=== PATIENT | male | born 1970 | race Caucasian/White ===

== ENCOUNTER 2023-01-23 15:21 | Outpatient (OUT) | payer OTHER, SELFPAY ==
--- NOTE | 2023-01-23 | XR_ITS ---
The [address] [address] Patient Name: JERRY RESTREPO MRN: [id number] date: 1970 Sex: M Assigned Patient Location: LAB Current Patient Location: LAB Accession/Order Number: [id number] Exam Date: 01/23/2023 15:48 Report Date: 01/23/2023 18:31 At the request of: DORON ZUÑIGA Procedure: XR abdomen 1V EXAMINATION: XR abdomen 1V HISTORY: R11.2, Nausea with vomiting; unspecified M54.9 Dorsalgia COMPARISON: No relevant comparison available. FINDINGS: KIDNEY/URETER - RIGHT: Nephrolithiasis with a 1.1 cm stone projected over the pelvis KIDNEY/URETER - LEFT: No visible renal or ureteral calcifications. PELVIS: No visible ureteral calcifications. Any visible calcifications favor phleboliths. BOWEL: No abnormal dilation or deviation. BONES: Posterior decompression and transpedicular fusion lumbosacral spine OTHER: Negative. No abnormal gaseous collections. XR/XR abdomen 1V IMPRESSION: Right-sided calcifications possibly nephrolithiasis right nephrolithiasis measuring up to 1.1 cm, ureteropelvic junction stone should be considered Electronically authenticated by: JOSE BRUCE Date: 01/23/2023 18:31
[2023-01-23 16:02] LABS: Bacteria Urine NONE SEEN #/HPF (NONE SEEN); Cast Seen? NONE SEEN #/LPF (NONE SEEN); Crystals Seen? None Seen #/HPF (None Seen); Mucus Urine NONE SEEN (NONE SEEN); Squamous Epithelial Cell Urine RARE #/LPF (NONE/RARE); Urine Culture Indicated ALREADY ORDERED; WBC Urine 0-2 #/HPF (NONE SEEN)
== END 2023-01-23 15:22 | disposition home or self-care (01) ==
PROVIDERS: PCP Family Medicine; Visit Provider Family Medicine
DX: R31.9 Hematuria, unspecified (principal); R11.2 Nausea with vomiting, unspecified; M54.9 Dorsalgia, unspecified
CPT/HCPCS: 74018; 87086

== ENCOUNTER 2023-01-27 12:23 | Outpatient (OUT) | payer OTHER, SELFPAY ==
--- NOTE | 2023-01-27 12:26 | CT_ITS ---
The [address] [address] Patient Name: JERRY RESTREPO MRN: [id number] date: 1970 Sex: M Assigned Patient Location: CT Current Patient Location: CT Accession/Order Number: [id number] Exam Date: 01/27/2023 12:32 Report Date: 01/27/2023 13:00 At the request of: DORON ZUÑIGA Procedure: CT abdomen pelvis wo con EXAM: CT scan of the abdomen and pelvis without contrast. Dose reduction technique used: Automated exposure control and/or adjustment of the mA and/or kV according to patient size and/or use of iterative reconstruction technique. REASON FOR EXAM: N20.0, R31.9, R11.2, M54.9 COMPARISON: None FINDINGS: Enlarged distal appendix measuring up to 11 mm maximal thickness, however there is no periappendiceal fat stranding. Diffuse hepatic steatosis. Hepatomegaly measuring up to 23.5 cm. Multiple right calyceal renal stones. Right renal parenchymal scarring. Mildly enlarged periesophageal posterior mediastinal lymph nodes, for example a lymph node measures 2.1 x 1.7 cm. Partially visualized right-sided paraesophageal mass, this is chronic and was present on 05/04/2020 as well as the mildly enlarged lymph nodes. Small periumbilical fat-containing hernia. L5-S1 posterior jonnie and pedicle screw fusion with laminectomy. Hardware is intact. Grade 1 anterolisthesis of L5 on S1. No ureteral or bladder calculi. No hydronephrosis. No free fluid in the abdomen or pelvis. No free intraperitoneal air. No dilated or thickened loops of small bowel or colon. Liver, pancreas, spleen, bilateral kidneys, and bilateral adrenal glands are otherwise unremarkable within the limitations of noncontrast CT. No lymphadenopathy in the abdomen or pelvis. Remainder unremarkable. CT/CT abdomen pelvis wo con IMPRESSION: 1. Enlarged appendix. No other other findings are present to suggest acute appendicitis, correlate clinically. 2. Diffuse hepatic steatosis and hepatomegaly. 3. Right nephrolithiasis with associated parenchymal scarring. 4. Lower mediastinal lymphadenopathy is chronic. Electronically authenticated by: LEANA RHODES Date: 01/27/2023 13:00
== END 2023-01-27 12:24 | disposition home or self-care (01) ==
LOC: CT 12:23
PROVIDERS: PCP Family Medicine; Visit Provider Family Medicine
DX: N20.0 Calculus of kidney (principal); R31.9 Hematuria, unspecified; R11.2 Nausea with vomiting, unspecified; M54.9 Dorsalgia, unspecified
CPT/HCPCS: 74176

== ENCOUNTER 2023-01-29 13:14 | Outpatient (OUT) | payer OTHER, SELFPAY ==
--- NOTE | 2023-01-29 13:17 | CT_ITS ---
[address] [address] Patient Name: JERRY RESTREPO MRN: [id number] date: 1970 Sex: M Assigned Patient Location: CT Current Patient Location: CT Accession/Order Number: [id number] Exam Date: 01/29/2023 14:45 Report Date: 01/29/2023 15:25 At the request of: DORON ZUÑIGA Procedure: CT abdomen pelvis w con CT ABDOMEN/PELVIS WITH IV CONTRAST. INDICATION: Nausea With Vomiting, Abnormal Finding On CT R93.5. COMPARISON: 01/27/2023 TECHNIQUE: Contiguous axial images were obtained from the lung bases to the pelvic floor following the intravenous and oral administration of contrast. Coronal and sagittal reformations are provided. Approximately ML ml Omnipaque 350 was administered intravenously. FINDINGS: LOWER LUNGS: Clear. LIVER/BILIARY TREE: No mass. No intrahepatic ductal dilatation. Hepatic steatosis. GALLBLADDER: No significant gallbladder wall thickening. No radiopaque stone. CBD: Normal CBD. SPLEEN: Normal in size. PANCREAS: No acute findings. No peripancreatic fluid or inflammation. No pancreatic duct dilatation. No discrete mass. ADRENALS: Normal. KIDNEYS: No hydronephrosis. Right nephrolithiasis. STOMACH AND BOWEL: Stomach is unremarkable. No dilated bowel loops. No bowel wall thickening. There is oral contrast in the small bowel. There is a minimal oral contrast in the right colon. APPENDIX: There is no oral contrast in the appendix. The appendix measures 9 mm. No mucosal hyperenhancement. No periappendiceal stranding or fluid. PERITONEAL CAVITY: No fluid. No fat stranding. ABDOMINAL WALL: No subcutaneous stranding. No subcutaneous fluid collection. LYMPH NODES: No mesenteric or retroperitoneal lymphadenopathy by CT criteria. ABDOMINAL AORTA: No aneurysm. PELVIS: No acute abnormality. MUSCULOSKELETAL: No acute osseous abnormality. Stable L5-S1 posterior fusion hardware. CT/CT abdomen pelvis w con IMPRESSION: Mildly thickened appendix without other secondary signs of acute appendicitis. There is only a minimal amount of oral contrast in the right colon and cecum. No oral contrast in the appendix at this time. Electronically authenticated by: JUSTEN CARSON Date: 01/29/2023 15:25
== END 2023-01-29 13:15 | disposition home or self-care (01) ==
LOC: CT 13:14
PROVIDERS: PCP Family Medicine; Visit Provider Family Medicine
DX: R31.9 Hematuria, unspecified (principal); R93.5 Abnormal findings on diagnostic imaging of other abdominal regions, including retroperitoneum; R11.2 Nausea with vomiting, unspecified
CPT/HCPCS: 74177; Q9966; Q9967

== ENCOUNTER 2023-02-12 15:23 | Outpatient (OUT) | payer OTHER, SELFPAY ==
[2023-02-12 15:32] LABS: Bilirubin Urine NEGATIVE (NEGATIVE); Blood Urine MODERATE (NEGATIVE); Clarity Urine CLEAR (CLEAR); Color Urine LT. YELLOW (YELLOW); Glucose Urine UA >=1000 mg/dL (NEGATIVE); Ketones Urine NEGATIVE (NEGATIVE); Leukocyte Esterase Urine NEGATIVE (NEGATIVE); Nitrite Urine NEGATIVE (NEGATIVE); Protein Urine TRACE mg/dL (NEG/TRACE); Specific Gravity Urine >=1.030 (1.005-1.025); Urobilinogen Urine 0.2 EU/dL (0.2-1.0)
[2023-02-12 15:54] LABS: Bacteria Urine NONE SEEN #/HPF (NONE SEEN); Cast Seen? NONE SEEN #/LPF (NONE SEEN); Crystals Seen? None Seen #/HPF (None Seen); Mucus Urine NONE SEEN (NONE SEEN); Squamous Epithelial Cell Urine NONE SEEN #/LPF (NONE/RARE); Urine Culture Indicated ALREADY ORDERED; WBC Urine 0-2 #/HPF (NONE SEEN)
== END 2023-02-12 15:24 | disposition home or self-care (01) ==
LOC: LAB 15:24
PROVIDERS: PCP Family Medicine; Visit Provider Family Medicine
DX: R31.9 Hematuria, unspecified (principal)
CPT/HCPCS: 81001; 87086

== ENCOUNTER 2023-04-01 14:32 | Outpatient (OUT) | payer OTHER, SELFPAY | END 2023-04-01 14:33 | disposition home or self-care (01) | LOC: PST 14:33 | PROVIDERS: PCP Family Medicine; Visit Provider Surgery | DX: Z01.818 Encounter for other preprocedural examination (principal); R10.9 Unspecified abdominal pain; K63.5 Polyp of colon; R93.5 Abnormal findings on diagnostic imaging of other abdominal regions, including retroperitoneum ==

== ENCOUNTER 2023-04-09 09:06 | Day surgery (SDC) | payer OTHER, SELFPAY ==
--- NOTE | 2023-04-09 | OP_ITS ---
OPERATION DATE: ??04/09/2023 PREOPERATIVE DIAGNOSIS:? Intermittent rectal bleeding, left lower quadrant pain, as well as abnormal CT scan. POSTOPERATIVE DIAGNOSIS:? Redundant colon with 3 mm rectal polyp. PROCEDURE:? Colonoscopy to cecum with cold snare polypectomy x1 for a 3 mm rectal polyp. SURGEON:? Bill Banks M.D. ANESTHESIA:? Monitored anesthesia care. ESTIMATED BLOOD LOSS:? Less than 1 mL. INDICATIONS AND CONSENT:? Patient is a 52-year-old male with history of intermittent left lower quadrant abdominal pain, as well as intermittent rectal bleeding a CT scan with mildly dilated appendix.? Indications, risks, benefits, alternatives of proceeding with colonoscopy were explained extensively to the patient, including the risks of bleeding, colon perforation or anesthetic complications.? All of his questions were answered.? Informed consent was obtained. PROCEDURE:? Patient brought to the operating room, placed in the left lateral decubitus position.? Monitored anesthesia care was provided.? Rectal exam was performed which showed no masses or blood.? The scope was inserted into the anal canal.? Under direct visualization was advanced. ?It was advanced to the cecum where cecal markings were clearly identified.? The appendiceal orifice was normal.? Upon withdrawal of the scope, mucosal surfaces were carefully examined.? There was noted to be a good prep.? No mass lesions or inflammatory changes.? There was mild sigmoid diverticulosis without inflammatory changes or scarring.? Within the rectum, there was noted to be a 3 mm sessile polyp that was removed with cold snare with good hemostasis.? The scope was retroflexed in the anal canal.? There was no significant hemorrhoidal disease.? Scope was then withdrawn. ?Patient tolerated procedure well, was sent to recovery room in good condition.f/u colonoscopy likely in 5 years CC:? Ayana Warren
[2023-04-09 09:26] VITALS: BMI 49.4
[2023-04-09] MEDS: LACTATED RINGER'S SOLUTION 1,000 ML 50 ML IV (09:36)
[2023-04-09 09:37] LABS: Glucometer 142 mg/dL (74-106)
[2023-04-09 11:02] VITALS: BP 125/67; PULSE 85; RESP 16; O2SAT 96
[2023-04-09 11:20] VITALS: BP 139/79; PULSE 83; RESP 16; O2SAT 97
== END 2023-04-09 11:33 | disposition home or self-care (01) ==
PROVIDERS: PCP Family Medicine; Visit Provider Surgery
PROC: (CPT 811; principal; 2023-04-09 10:05)
DX: R10.32 Left lower quadrant pain (principal); K62.5 Hemorrhage of anus and rectum; R93.5 Abnormal findings on diagnostic imaging of other abdominal regions, including retroperitoneum; Q43.8 Other specified congenital malformations of intestine; K57.30 Diverticulosis of large intestine without perforation or abscess without bleeding; I10 Essential (primary) hypertension; E11.9 Type 2 diabetes mellitus without complications; G47.33 Obstructive sleep apnea (adult) (pediatric); E78.00 Pure hypercholesterolemia, unspecified; E66.01 Morbid (severe) obesity due to excess calories; Z68.43 Body mass index [BMI] 50.0-59.9, adult; D86.9 Sarcoidosis, unspecified; K76.0 Fatty (change of) liver, not elsewhere classified; Z98.1 Arthrodesis status
CPT/HCPCS: 45385; 36415; 82948; 88305; J2704

== ENCOUNTER 2023-12-24 12:39 | Outpatient (OUT) | payer OTHER, SELFPAY ==
--- OUTSIDE RECORDS SUMMARY | 2023-12-24 12:48 | XMS_ITS | CCD ---
Author Organization [facility] Care Team Providers Care Marketing Planning Manager Name Role Phone SAVANAH, SANJU H. Unavailable Unavailable SAVANAH, SANJU H. Unavailable Unavailable DORON CAMACHO M Unavailable Unavailable SAVANAH, SANJU H. Unavailable Unavailable SAVANAH, SANJU H. Unavailable Unavailable DORON CAMACHO M Unavailable Unavailable SAVANAH, SANJU H. Unavailable Unavailable Unknown, Referring Provider Unavailable Unav ailable Unknown, Referring Provider Unavailable Unav ailable Unavailable Unavailable Halie Sam Unavailable ZARA Carbajal, DR SAL Primary Care Unavailable PAY ., DR GANNON Admitting Unavailable PAY ., DR GANNON Consulting Unavailable PAY ., DR GANNON Attending Unavailable YURY FERNANDEZ Consulting Unavailable HOY ., DR SAL Admitting Unavailable HOY ., DR SAL Primary Care Unavailable HOY ., DR SAL Consulting Unavailable MIGUELINAY ., DR SAL Attending Unavailable Doron Camacho Primary Care Physician Bill MONAE Attending Unavailable Bill MONAE Attending Unavailable Bill MONAE Attending Unavailable Allergies Allergy Classification Reported Allergen(s) Allergy Type Date of Onset Reaction(s) Facility (1 source) No Known Medication Allergies; Translations: [No Known Medication Allergies] Propensity to adverse reactions (disorder) [facility] Repository Medications Current Medications Medication Drug Class(es) Dates Sig (Normalized) Sig (Original) fenofibrate 160 mg oral tablet (3 sources) Peroxisome Proliferator Receptor alpha Agonist Start: 02-05-2023 take 1 tablet by mouth once daily fenofibrate 160 mg oral tablet 160 mg = 1 tab(s), Oral, Daily, Refills(s) 0 Start Date: 02/05/23 Status: Ordered Fenofibrate Acti ve Gentamicin Sulfate (HALF-WAY) (1 source) Start: 10-11-2018 take 2 drop(s) into the eye(s) every four hours Garamycin 0.3 % 2 drops in affected eye Ophthalmic q 4 hours while awake for 5 days Oct, Active metoprolol tartrate 100 mg oral tablet (7 sources) beta-Adrenergic Ellis Start: 02-05-2023 take 1 tablet by mouth twice daily metoprolol tartrate 100 mg Tab 100 mg = 1 tab(s), Oral, BID, Refills(s) 0 Start Date: 02/05/23 Status: Ordered Metoprolol Tartr ate Active Metoprolol Tartr ate TABS Quantity: 0 Refills: 0 Ordered: 22-Nov-2020 DO Active oxaprozin 600 mg oral tablet (7 sources) Nonsteroidal Anti-inflammatory Drug Start: 02-05-2023 take 2 tablets by mouth once daily oxaprozin 600 mg Tab 1,200 mg = 2 tab(s), Oral, Daily, Refills(s) 0 Start Date: 02/05/23 Status: Ordered Oxaprozin Active Oxaprozin TABS Q uantity: 0 Refills: 0 Ordered: 22-Nov-2020 DO Active PARoxetine hydrochloride 40 mg oral tablet (3 sources) Serotonin Reuptake Inhibitor Start: 02-05-2023 take 1 tablet by mouth once daily paroxetine 40 mg Tab 40 mg = 1 tab(s), Oral, Daily, Refills(s) 0 Start Date: 02/05/23 Status: Ordered PARoxetine HCl A ctive Simvastatin (3 sources) HMG-CoA Reductase Inhibitor Start: 02-05-2023 simvastatin 0 Refill (s), Refills(s) 0 Start Date: 02/05/23 Status: Ordered Simvastatin Acti ve Completed/Discontinued Medications Medication Drug Class(es) Dates Sig (Normalized) Sig (Original) Ketorolac (1 source) Nonsteroidal Anti-inflammatory Drug, Cyclooxygenase Inhibitor Start: 12-17-2014 Toradol per 15 mg Dec, 60 mg predniSONE 10 mg oral tablet (6 sources) Start: 11-28-2020 End: 01-12-2021 predniSONE 10 MG Oral Tablet 40 mg for 2 days, 30 mg for 2 days, 20 mg for 2 days, 10 mg for 2 days. Quantity: 20 Refills: 3 Ordered: 28-Nov-2020 Carter Kruse MD Start : 28-Nov-2020 End : 12-Jan-2021 Complete End: 01-12-2021 take 3 tablets by mouth once daily predniSONE 20 MG Oral Tablet TAKE 3 TABLET Daily Quantity: 0 Refills: 0 Ordered: 12-Jan-2021 DO End : 12-Jan-2021 Complete Problems Active Problems Problem Classification Problem Date Documented Date Episodic/Chronic Abdominal pain (3 sources) Left lower quadrant pain; Translations: [Left lower quadrant pain] Onset: 02-12-20 Episodic Anal and rectal conditions (1 source) Rectal polyp; Translations: [Rectal polyp] Onset: 04-22-20 Episodic Calculus of urinary tract (2 sources) History of calculus of kidney 02-05-2023 Episodic Diabetes mellitus without complication (3 sources) Type 2 diabetes mellitus without complications; Translations: [Diabetes mellitus] Onset: 09-18-1902-05-2023 Chronic Disorders of lipid metabolism (2 sources) Hypercholesterolemia 02-05-2023 Chronic Diverticulosis and diverticulitis (2 sources) Diverticula of intestine; Translations: [Diverticulosis of large intestine without perforation or abscess without bleeding] Onset: 04-22-20 Chronic Essential hypertension (2 sources) Hypertensive disorder 02-05-2023 Chronic Fluid and electrolyte disorders (1 source) Dehydration; Translations: [DEHYDRATION] Onset: 09-18-19 Episodic Gastrointestinal hemorrhage (3 sources) Hemorrhage of rectum and anus; Translations: [Hemorrhage of anus and rectum] Onset: 02-12-20 Episodic Headache; including migraine (1 source) Headache; including migraine; Translations: [HEADACHE UNSPECIFIED] Onset: 09-18-19 Immunity disorders (6 sources) Sarcoidosis; Translations: [Sarcoidosis] 02-05-2023 Chronic Lymphadenitis (14 sources) Mediastinal lymphadenopathy; Translations: [Hilar lymphadenopathy ] 02-05-2023 Episodic Nausea and vomiting (4 sources) Nausea; Translations: [NAUSEA] Onset: 09-14-19 Episodic Nutritional deficiencies (2 sources) Vitamin D deficiency 02-05-2023 Chronic Other aftercare (1 source) 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; Translations: [OTH ONLINE MERCHANDISER CURRENT DRUG THERAPY] Onset: 09-18-19 Episodic Other and unspecified benign neoplasm (1 source) Hyperplastic polyp of large intestine 04-22-2023 Episodic Other circulatory disease (4 sources) H/O: hypertension; Translations: [Personal history of other diseases of circulatory system] Episodic Other connective tissue disease (2 sources) Arthrodesis status; Translations: [Arthrodesis status] Onset: 04-30-20 Episodic Other connective tissue disease (1 source) Myalgia, unspecified site; Translations: [MYALGIA UNSPECIFIED SITE] Onset: 09-18-19 Episodic Other liver diseases (2 sources) Steatosis of liver 02-05-2023 Chronic Other liver diseases (2 sources) Large liver 02-05-2023 Episodic Other lower respiratory disease (6 sources) Interstitial lung disease; Translations: [Postinflammatory pulmonary fibrosis] 02-05-2023 Chronic Other lower respiratory disease (5 sources) Dyspnea on exertion; Translations: [Other respiratory abnormalities] Episodic Other lower respiratory disease (1 source) Shortness of breath; Translations: [SHORTNESS OF BREATH] Onset: 09-18-19 Episodic Other nutritional; endocrine; and metabolic disorders (3 sources) Body mass index 40+ - severely obese; Translations: [Body mass index (BMI) 50.0-59.9, adult] Onset: 02-12-20 Chronic Other nutritional; endocrine; and metabolic disorders (2 sources) Morbid obesity 02-11-2023 Chronic Other screening for suspected conditions (not mental disorders or infectious disease) (4 sources) Encounter for screening for malignant neoplasm of prostate; Translations: [Imaging of abdomen abnormal] Onset: 08-17-19 Episodic Residual codes; unclassified (6 sources) Obstructive sleep apnea syndrome; Translations: [Obstructive sleep apnea (adult)(pediatric)] 02-05-2023 Chronic Residual codes; unclassified (1 source) Pain, unspecified; Translations: [Pain, unspecified] Onset: 04-30-20 Unclassified (1 source) CONTACT W/AND (SUSP) EXPOS COVID-19; Translations: [CONTACT W/AND (SUSP) EXPOS COVID-19] Onset: 09-18-19 Urinary tract infections (1 source) Urinary tract infection, site not specified; Translations: [UTI SITE NOT SPECIFIED] Onset: 09-18-19 Episodic Past or Other Problems Problem Classification Problem Date Documented Da te Episodic/Chronic Unclassified (2 sources) Patient encounter status; Translations: [Preop testing] Results Test Name Value Interpretation Reference Range Facility Ambulatory Visit Summaryon 1 06-23-2022 Ambulatory Visit Summary JERRY WILSON DOB:1970 Visit Date:04/22/2023 Ambulatory Visit Instructions Your Care Team Attending Physician - LETHA ISIDRO, Bill Cancino Primary Care Physician - Doron Camacho MD This Is Your Medications List fenofibrate (fenofibrate 160 mg oral tablet) metoprolol (metoprolol tartrate 100 mg Tab) oxaprozin (oxaprozin 600 mg Tab) paroxetine (paroxetine 40 mg Tab) simvastatin Procedures Performed Colonoscopy (04/09/2023), Arthroscopy of shoulder, Fusion of lumbar spine, Fusion of lumbar spine, Repair of left inguinal hernia, Repair of meniscus, Repair of right inguinal hernia. Medications What How Much When Instructions Unchanged fenofibrate (fenofibrate 160 mg oral tablet) 1 Tablets By Mouth Every day Unchanged metoprolol (metoprolol tartrate 100 mg Tab) 1 Tablets By Mouth 2 times a day Unchanged oxaprozin (oxaprozin 600 mg Tab) 2 Tablets By Mouth Every day Unchanged paroxetine (paroxetine 40 mg Tab) 1 Tablets By Mouth Every day Unchanged simvastatin 0 Refill(s) Allergies No Known Allergies No Known Medication Allergies Problems Ongoing - Any problem that you are currently receiving treatment for. Abnormal abdominal CT scan BMI 50.0-59.9, adult Diabetes Hepatic steatosis Hepatomegaly History of nephrolithiasis HTN (hypertension) Hypercholesteremia Interstitial lung disease LLQ abdominal pain Mediastinal lymphadenopathy Mediastinal lymphadenopathy Morbid obesity Obstructive sleep apnea syndrome Rectal bleeding Sarcoidosis Vitamin D deficiency Patient Survey You may receive a survey via text or e-mail asking about your office visit. Please share your experience with us by completing your survey. We appreciate your feedback and thank you for choosing us for your care. Normal [facility] General Surgery Office/Clini c Noteon 04-22-2023 General Surgery Office/Clinic Note Chief Complaint post operative follow up HPI Staff 13 day post operative follow up post colonoscopy with rectal polypectomy. History of Present Illness patient s/p colonoscopy due to LLQ pain, intermittent bleeding and abnormal abd ct scan; colonoscopy with normal appendiceal orifice; mild sigmoid diverticulosis and small hyperplastic rectal polyp; patient doing well, denies abd pain or blood in stools. Review of Systems ROS - Provider Constitutional: no fever, no sweats, no weight loss. Eyes: no glasses, no blurred vision, no visual loss. ENMT: no dentures, no hoarseness, no swallowing difficulties, no hearing loss, no ear infection(s), no nose bleeds. Cardiovascular: normal blood pressure, no chest pain, regular heartbeat, no heart murmur. Respiratory: no shortness of breath, no cough, no asthma, no wheezing. Gastrointestinal: no nausea, no vomiting, no diarrhea, no constipation, no blood in stool, no change in bowel habits, no abdominal pain, no hepatitis. Genitourinary: no kidney stones, no urine infection, no dysuria. Musculoskeletal: no pain, no weakness. Skin: no changing moles, no rash, no skin lumps. Neurologic: no seizures, no epilepsy, no headache. Psychiatric: no emotional or psychiatric problem. Heme/Lymph: no bleeding problems, no anemia, no blood clots, no transfusions. Allergy/Immunologic: no swollen lymph nodes/glands, no IV drug abuse. Other: Additional ROS info: Except as noted in the above Review of Systems and in the History of Present Illness, all other systems have been reviewed and are negative or noncontributory. Assessment/Plan 1. Hyperplastic rectal polyp (K62.1: Rectal polyp) recommend screening colonoscopy in 10 years, call sooner if problems/questions. 2. Sigmoid diverticulosis (K57.30: Diverticulosis of large intestine without perforation or abscess without bleeding) high fiber diet and daily fiber supplement. Follow-up No qualifying data available Problem List/Past Medical History Ongoing Abnormal abdominal CT scan BMI 50.0-59.9, adult Diabetes Hepatic steatosis Hepatomegaly History of nephrolithiasis HTN (hypertension) Hypercholesteremia Hyperplastic rectal polyp Interstitial lung disease LLQ abdominal pain Mediastinal lymphadenopathy Mediastinal lymphadenopathy Morbid obesity Obstructive sleep apnea syndrome Rectal bleeding Sarcoidosis Sigmoid diverticulosis Vitamin D deficiency Historical No qualifying data Procedure/Surgical History Colonoscopy (04/09/2023), Arthroscopy of shoulder, Fusion of lumbar spine, Fusion of lumbar spine, Repair of left inguinal hernia, Repair of meniscus, Repair of right inguinal hernia. Medications fenofibrate 160 mg oral tablet, 160 mg= 1 tab(s), Oral, Daily metoprolol tartrate 100 mg Tab, 100 mg= 1 tab(s), Oral, BID oxaprozin 600 mg Tab, 1200 mg= 2 tab(s), Oral, Daily paroxetine 40 mg Tab, 40 mg= 1 tab(s), Oral, Daily simvastatin Allergies No Known Allergies No Known Medication Allergies Social History Alcohol - Denies Alcohol Use, 02/11/2023 Substance Abuse - Denies Substance Abuse, 02/11/2023 Tobacco Never (less than 100 in lifetime) Tobacco Use:. Never Smokeless Tobacco Use:., 02/11/2023 Family History Family history is negative Immunizations Vaccine Date Status SARS-CoV-2 (COVID-19) mRNA BNT-162b2 vax 09/18/2020 Recorded SARS-CoV-2 (COVID-19) mRNA BNT-162b2 vax 08/28/2020 Recorded Normal [facility] Comment on above: Result Comment: Elec tronically Signed By: LETHA ISIDRO, Bill Wilcox\Date and Time Signed: 04/22/23 15:40 EST Reminderson 04-22-2023 Reminders - From: Silvia Jensen LPN To: N - Clinical; Sent: 04/22/2023 15:39:09 EST Show up: 03/09/2033 07:00:00 EDT Subject: colonoscopy recall Due Date/Time: 04/09/2033 07:00:00 EST Reminder/Recall Patient due for screening colonoscopy 04/09/2033. Normal [facility] Pathology Noteon 04-17-2023 Pathology Note [id number] #1.00TIFF [facility] Outside Colonoscopyon 2022 Outside Colonoscopy [id number] #1.00TIFF [facility] Lab Reportson 04-09-2023 Lab Reports [id number] #1.00TIFF [facility] Insurance Correspondenceon 1 05-24-2022 Insurance Correspondence [id number] 1#1.00TIFF [facility] Consent for Procedure/Surger yon 03-21-2023 Consent for Procedure/Surgery [id number]# 1.00TIFF [facility] Insurance Correspondenceon Insurance Correspondence [id number] 5#1.00CD:127 [facility] Formson 02-12-2023 Forms [id number] 0#1.00CD:127 [facility] Ambulatory Visit Summaryon Ambulatory Visit Summary JERRY WILSON :1970 Visit Date:02/11/2023 Ambulatory Visit Instructions Your Care Team Attending Physician - LETHA ISIDRO, Bill Cancino Primary Care Physician - Doron Camacho MD This Is Your Medications List Contact prescribing physician if questions or concerns fenofibrate (fenofibrate 160 mg oral tablet) metoprolol (metoprolol tartrate 100 mg Tab) oxaprozin (oxaprozin 600 mg Tab) paroxetine (paroxetine 40 mg Tab) simvastatin Procedures Performed Arthroscopy of shoulder, Fusion of lumbar spine, Fusion of lumbar spine, Repair of meniscus. Discharge Vitals Heart Rate (Peripheral) 80 Respiratory Rate 16 Blood Pressure 140/104 Height 180 cm Height 71 in Weight 166 kg Weight 365.2 lb BMI 51.23 Medications What How Much When Instructions Unchanged fenofibrate (fenofibrate 160 mg oral tablet) 1 Tablets By Mouth Every day Contact prescribing physician if questions or concerns Unchanged metoprolol (metoprolol tartrate 100 mg Tab) 1 Tablets By Mouth 2 times a day Contact prescribing physician if questions or concerns Unchanged oxaprozin (oxaprozin 600 mg Tab) 2 Tablets By Mouth Every day Contact prescribing physician if questions or concerns Unchanged paroxetine (paroxetine 40 mg Tab) 1 Tablets By Mouth Every day Contact prescribing physician if questions or concerns Unchanged simvastatin 0 Refill(s) Contact prescribing physician if questions or concerns Allergies No Known Allergies No Known Medication Allergies Problems Ongoing - Any problem that you are currently receiving treatment for. BMI 50.0-59.9, adult Diabetes Hepatic steatosis Hepatomegaly History of nephrolithiasis HTN (hypertension) Hypercholesteremia Interstitial lung disease Mediastinal lymphadenopathy Mediastinal lymphadenopathy Morbid obesity Obstructive sleep apnea syndrome Sarcoidosis Vitamin D deficiency [facility] RAD - CT Reporton 02-11-2023 RAD - CT Report [id number] #1.00CD:127 Normal [facility] RAD - CT Reporton 02-05-2023 RAD - CT Report [id number]# 1.00CD:127 Normal [facility] RAD - MISCon 02-05-2023 RAD - MISC [id number] #1.00CD:127 Normal [facility] Physician Referralon 023 Physician Referral [id number]# 1.00CD:127 Normal [facility] CULTURE URINEon 09-15-2022 CULTURE URINE Isolate 1 Morganella morganii 100,000 cfu/mL of ORGANISM 1 Morganella morganii ANTIBIOTIC M.I.C RX STATUS Ampicillin >=32 R F Ampicillin/Sulbactam 8 S F Piperacillin/Tazobac greenberg <=4 S F Cefazolin >=64 R F Ceftazidime <=1 S F Ceftriaxone <=1 S F Ertapenem <=0.5 S F Imipenem 1 S F Amikacin <=2 S F Gentamicin <=1 S F Tobramycin <=1 S F Ciprofloxacin <=0.25 S F Levofloxacin <=0.12 S F Nitrofurantoin 64 R F Trimethoprim/Sulfame thoxazole <=20 S F Normal [facility] Comment on above: Performed By: #### L IPA, CMP, CK, HSTROPN #### [facility] [address] [place] [address] Dr. Frank Nugent CBC AUTO DIFFon 09-13-2022 BASO # 0.0 103/ul Normal 0.0-0.1 [facility] Comment on above: Performed By: #### C BC #### [facility] [address] [address] [address] Frank Nugent Basophils/100 WBC (Bld) 0.2 % Normal 0.2-2.0 [facility] Comment on above: Performed By: #### C BC #### [facility] [address] [place] [address] Dr. Frank Nugent EO # 0.0 103/ul Normal 0.0-0.7 [facility] Comment on above: Performed By: #### C BC #### [facility] [address] [place] [address] Dr. Frank Nugent Eosinophils/100 WBC (Bld) 0.1 % Critically low 0.9-7.0 [facility] Comment on above: Performed By: #### C BC #### [facility] [address] [place] [address] Dr. Frank Nugent Erythrocyte distribution width (RBC) [Ratio] 12.7 % Normal 11.0-15.0 [facility] Comment on above: Performed By: #### C BC #### [facility] [address] [place] [address] Dr. Frank Nugent Hematocrit (Bld) [Volume fraction] 41.3 % Critically low 42.0-54.0 [facility] Comment on above: Performed By: #### C BC #### [facility] [address] [place] [address] Dr. Frank Nugent Hemoglobin (Bld) [Mass/Vol] 14.0 g/dL Normal 14.0-18.0 [facility] Comment on above: Performed By: #### C BC #### [facility] [address] [place] [address] Dr. Frank Nugent IG # 0.04 10e3/ul Critically high 0.00-0.03 [facility] Comment on above: Performed By: #### C BC #### [facility] [address] [place] [address] Dr. Frank Nugent IG % 0.3 % Normal 0.0-0.5 [facility] Comment on above: Performed By: #### C BC #### [facility] [address] [place] [address] Dr. Frank Nugent LYMPH # 1.0 103/ul Critically low 1.2-3.8 [facility] Comment on above: Performed By: #### C BC #### [facility] [address] [address] [address] Frank Nugent Lymphocytes/100 WBC (Bld) 6.9 % Critically low 20.5-60.0 [facility] Comment on above: Performed By: #### C BC #### [facility] [address] [address] [address] Frank Nugent MANUAL DIFF REQ NO Normal [facility] Comment on above: Performed By: #### C BC #### [facility] [address] [place] [address] Dr. Frank Nugent MCH (RBC) [Entitic mass] 29.5 pg Normal 25.9-34.0 [facility] Comment on above: Performed By: #### C BC #### [facility] [address] [place] [address] Dr. Frank Nugent MCHC (RBC) [Mass/Vol] 33.9 g/dL Normal 29.9-35.2 [facility] Comment on above: Performed By: #### C BC #### [facility] [address] [place] [address] Dr. Frank Nugent MCV (RBC) [Entitic vol] 87.1 fL Normal 80.0-94.0 [facility] Comment on above: Performed By: #### C BC #### [facility] [address] [place] [address] Dr. Frank Nugent MONO # 1.3 103/ul Critically high 0.3-0.8 [facility] Comment on above: Performed By: #### C BC #### [facility] [address] [place] [address] Dr. Frank Nugent Monocytes/100 WBC (Bld) 9.0 % Normal 1.7-12.0 [facility] Comment on above: Performed By: #### C BC #### [facility] [address] [place] [address] Dr. Frank Nugent NEUT # 12.2 103/ul Critically high 1.4-6.5 [facility] Comment on above: Performed By: #### C BC #### [facility] [address] [place] [address] Dr. Frank Nugent Neutrophils/100 WBC (Bld) 83.5 % Critically high 43.0-75.0 [facility] Comment on above: Performed By: #### C BC #### [facility] [address] [place] [address] Dr. Frank Nugent Platelet mean volume (Bld) [Entitic vol] 11.5 fL Normal 9.5-13.5 [facility] Comment on above: Performed By: #### C BC #### [facility] [address] [place] [address] Dr. Frank Nugent PLT 216 103/ul Normal 150-450 [facility] Comment on above: Performed By: #### C BC #### [facility] [address] [place] [address] Dr. Frank Nugent RBC 4.74 106/ul Normal 4.70-6.10 [facility] Comment on above: Performed By: #### C BC #### [facility] [address] [place] [address] Dr. Frank Nugent WBC 14.6 103/ul Critically high 4.0-11.0 [facility] Comment on above: Performed By: #### C BC #### [facility] [address] [place] [address] Dr. Frank Nugent CPKon 09-13-2022 CK [Catalytic activity/Vol] 260 U/L Normal 39-308 [facility] Comment on above: Performed By: #### L IPA, CMP, CK, HSTROPN #### [facility] [address] [place] [address] Dr. Frank Nugent CULTURE BLOODon 09-13-2022 Microscopic examination of blood, culture Culture Observations: NO GROWTH AT 5 DAYS. Normal [facility] Comment on above: Performed By: #### L IPA, CMP, CK, HSTROPN #### [facility] [address] [place] [address] Dr. Frank Nugent Microscopic examination of blood, culture Culture Observations: NO GROWTH AT 5 DAYS. Normal [facility] Comment on above: Performed By: #### L IPA, CMP, CK, HSTROPN #### [facility] [address] [place] [address] Dr. Frank Nugent Covid-19 PCR ([facility])on SARS-CoV-2 (COVID-19) RNA JABIER+probe Ql (Unsp spec) Not detected Normal NOT DETECTED [facility] Comment on above: Result Comment: This test is not yet approved or cleared by the [place] FDA. When there are no FDA-approved or cleared tests available, and other criteria are met, FDA can make tests available under an emergency access mechanism called an Emergency Use Authorization (EUA). The EUA for this test is supported by the [place] of Health and Human Service's (HHS's) declaration that circumstances exist to justify the emergency use of in vitro diagnostics for the detection and/or diagnosis of the virus that causes COVID-19. This EUA will remain in effect (meaning this test can be used) for the duration of the COVID-19 declaration justifying emergency of IVDs, unless it is terminated or revoked by FDA (after which the test may no longer be used). When diagnostic testing is negative, the possibility of a false negative should be considered in the context of a patient's recent exposures and the presence of clinical signs and symptoms consistent with SARS-CoV-2. Performed By: #### L IPA, CMP, CK, HSTROPN #### [facility] [address] [place] [address] Dr. Frank Nugent ER URINE PROFILEon 3 Bilirubin Ql (U) Negative Normal NEGATIVE [facility] Comment on above: Performed By: #### L IPA, CMP, CK, HSTROPN #### [facility] [address] [place] [address] Dr. Frank Nugent Clarity (U) CLEAR Normal CLEAR [facility] Comment on above: Performed By: #### L IPA, CMP, CK, HSTROPN #### [facility] [address] [place] [address] Dr. Frank Nugent Color (U) YELLOW Normal YELLOW [facility] Comment on above: Performed By: #### L IPA, CMP, CK, HSTROPN #### [facility] [address] [address] [address] Frank VEGA A micrscopic examination will be performed if indicated. Normal [facility] Comment on above: Performed By: #### L IPA, CMP, CK, HSTROPN #### [facility] [address] [address] [address] Frank Nugent Glucose Ql (U) 250 mg/dl Abnormal NEGATIVE [facility] Comment on above: Performed By: #### L IPA, CMP, CK, HSTROPN #### [facility] [address] [address] [address] Frank Nugent Hemoglobin Ql (U) SMALL Abnormal NEGATIVE [facility] Comment on above: Performed By: #### L IPA, CMP, CK, HSTROPN #### [facility] [address] [place] [address] Dr. Frank Nugent Ketones Ql (U) Negative Normal NEGATIVE [facility] Comment on above: Performed By: #### L IPA, CMP, CK, HSTROPN #### [facility] [address] [address] [address] Frank Nugent LEUKOCYTES TRACE Abnormal NEGATIVE [facility] Comment on above: Performed By: #### L IPA, CMP, CK, HSTROPN #### [facility] [address] [address] [address] Frank Nugent Nitrite Ql (U) Negative Normal NEGATIVE [facility] Comment on above: Performed By: #### L IPA, CMP, CK, HSTROPN #### [facility] [address] [address] [address] Frank Nugent pH (U) 5.5 [pH] Normal 5-9 [facility] Comment on above: Performed By: #### L IPA, CMP, CK, HSTROPN #### [facility] [address] [address] [address] Frank Nugent SPEC GRAVITY 1.020 Normal 1.005-<=1.025 [facility] Comment on above: Performed By: #### L IPA, CMP, CK, HSTROPN #### [facility] [address] [place] [address] Dr. Frank Nugent UA PROTEIN TRACE Normal NEGATIVE/ TRACE [facility] Comment on above: Performed By: #### L IPA, CMP, CK, HSTROPN #### [facility] [address] [place] [address] Dr. Frank Nugent UR MICRO IND INDICATED Normal [facility] Comment on above: Performed By: #### L IPA, CMP, CK, HSTROPN #### [facility] [address] [place] [address] Dr. Frank Nugent Urobilinogen Qn (U) 0.2 {Moni'U}/dL Normal 0.2 - 1. 0 [facility] Comment on above: Performed By: #### L IPA, CMP, CK, HSTROPN #### [facility] [address] [place] [address] Dr. Frank Nugent LACTATE/LACTIC ACIDon 2022 Lactate [Moles/Vol] 2.1 mmol/L Critically high 0.4-2.0 [facility] Comment on above: Performed By: #### L ACT #### [facility] [address] [place] [address] Dr. Frank Nugent LIPASEon 09-13-2022 Lipase [Catalytic activity/Vol] 116.0 U/L Normal 73.0-393.0 [facility] Comment on above: Performed By: #### L IPA, CMP, CK, HSTROPN #### [facility] [address] [place] [address] Dr. Frank Nugent PROF 14(COMP METB)on 023 Albumin [Mass/Vol] 4.0 g/dL Normal 3.4-5.0 [facility] Comment on above: Performed By: #### L IPA, CMP, CK, HSTROPN #### [facility] [address] [place] [address] Dr. Frank Nugent Albumin/Globulin [Mass ratio] 1.0 {ratio} Normal [facility] Comment on above: Performed By: #### L IPA, CMP, CK, HSTROPN #### [facility] [address] [address] [address] Frank Nugent ALP [Catalytic activity/Vol] 70 U/L Normal 46-116 [facility] Comment on above: Performed By: #### L IPA, CMP, CK, HSTROPN #### [facility] [address] [place] [address] Dr. Frank Nugent ALT [Catalytic activity/Vol] 55 U/L Normal 16-63 [facility] Comment on above: Performed By: #### L IPA, CMP, CK, HSTROPN #### [facility] [address] [address] [address] Frank Nugent Anion gap [Moles/Vol] 14.0 mmol/L Normal [facility] Comment on above: Performed By: #### L IPA, CMP, CK, HSTROPN #### [facility] [address] [place] [address] Dr. Frank Nugent AST [Catalytic activity/Vol] 28 U/L Normal 15-37 [facility] Comment on above: Performed By: #### L IPA, CMP, CK, HSTROPN #### [facility] [address] [place] [address] Dr. Frank Nugent Bilirubin [Mass/Vol] 2.1 mg/dL Critically high 0.2-1.0 [facility] Comment on above: Performed By: #### L IPA, CMP, CK, HSTROPN #### [facility] [address] [address] [address] Frank Nugent Calcium [Mass/Vol] 9.3 mg/dL Normal 8.5-10.1 [facility] Comment on above: Performed By: #### L IPA, CMP, CK, HSTROPN #### [facility] [address] [place] [address] Dr. Frank Nugent Chloride [Moles/Vol] 100 mmol/L Normal 98-107 [facility] Comment on above: Performed By: #### L IPA, CMP, CK, HSTROPN #### [facility] [address] [place] [address] Dr. Frank Nugent CO2 [Moles/Vol] 24.7 mmol/L Normal 21.0-32.0 [facility] Comment on above: Performed By: #### L IPA, CMP, CK, HSTROPN #### [facility] [address] [place] [address] Dr. Frank Nugent Creatinine [Mass/Vol] 1.31 mg/dL Critically high 0.70-1.30 [facility] Comment on above: Performed By: #### L IPA, CMP, CK, HSTROPN #### [facility] [address] [place] [address] Dr. Frank Nugent EGFR-AF CITIZEN [place] >60 Normal >=60 [facility] Comment on above: Performed By: #### L IPA, CMP, CK, HSTROPN #### [facility] [address] [place] [address] Dr. Frank Nugent EGFR-NON AF CITIZEN OF [place] 58 mL/min/1.73m2 Critically low >=60 [facility] Comment on above: Performed By: #### L IPA, CMP, CK, HSTROPN #### [facility] [address] [place] [address] Dr. Frank Nugent Globulin (S) [Mass/Vol] 4.0 g/dL Normal [facility] Comment on above: Performed By: #### L IPA, CMP, CK, HSTROPN #### [facility] [address] [place] [address] Dr. Frank Nugent Glucose [Mass/Vol] 244 mg/dL Critically high 74-106 [facility] Comment on above: Performed By: #### L IPA, CMP, CK, HSTROPN #### [facility] [address] [place] [address] Dr. Frank Nugent Potassium [Moles/Vol] 3.7 mmol/L Normal 3.5-5.1 [facility] Comment on above: Performed By: #### L IPA, CMP, CK, HSTROPN #### [facility] [address] [place] [address] Dr. Frank Nugent Protein [Mass/Vol] 8.0 g/dL Normal 6.4-8.2 [facility] Comment on above: Performed By: #### L IPA, CMP, CK, HSTROPN #### [facility] [address] [address] [address] Frank Nugent Sodium [Moles/Vol] 135 mmol/L Critically low 136-145 [facility] [place] [facility] Comment on above: Performed By: #### L IPA, CMP, CK, HSTROPN #### [facility] [address] [address] [address] Frank Nugent Urea nitrogen [Mass/Vol] 19.0 mg/dL Critically high 7.0-18.0 [facility] Comment on above: Performed By: #### L IPA, CMP, CK, HSTROPN #### [facility] [address] [place] [address] Dr. Frank Nugent Urea nitrogen/Creatinine [Mass ratio] 14.5 mg/mg Normal [facility] Comment on above: Performed By: #### L IPA, CMP, CK, HSTROPN #### [facility] [address] [address] [address] Frank Nugent PROTIMEon 09-13-2022 INR Coag (PPP) [Relative time] 0.97 {INR} Normal [facility] Comment on above: Performed By: #### L IPA, CMP, CK, HSTROPN #### [facility] [address] [place] [address] Dr. Frank Nugent INR GUIDELINES SEE BELOW Normal [facility] Comment on above: Result Comment: GHASSAN RED INR: 2.0 - 3.0 CONDITIONS NOT LISTED BELOW 2.5 - 3.5 FOR PROSTHETIC HEART VALVE REPLACEMENT 2.5 - 3.5 RECURRENT THROMBOSIS Performed By: #### L IPA, CMP, CK, HSTROPN #### [facility] [address] [place] [address] Dr. Frank Nugent PT Coag (PPP) [Time] 10.3 s Normal 9.0-11.6 [facility] Comment on above: Performed By: #### L IPA, CMP, CK, HSTROPN #### [facility] [address] [place], [place] [address] Dr. Frank Nugent SYMPTOMATIC COVID-19 ANTIGEN on 09-13-2022 EUA Statement SEE BELOW Normal [facility] [place] Comment on above: Result Comment: This test has not been FDA cleared or approved, but has been authorized by the FDA under an Emergency Use Authorization (EUA) for use by authorized laboratories certified under CLIA that meet the requirements to perform moderate or high complexity testing. This test has been authorized only for the detection of proteins from SARS-CoV-2, not for any other viruses or pathogens. The emergency use of this test is authorized for the duration of the declaration that circumstances exist justifying the authorization of emergency use of in vitro diagnostic tests for detection and/or diagnosis of Covid-19 under section 564(b)(1) of the Act, 21 U.S.C. 360bbb-3(b)(1), unless the declaration is terminated or authorization is revoked sooner. Performed By: #### L IPA, CMP, CK, HSTROPN #### [facility] [address] [address] [address] Frank Nugent SARS-CoV-2 (COVID-19) RNA JABIER+probe Ql (Unsp spec) Negative Normal NEGATIVE [facility] Comment on above: Performed By: #### L IPA, CMP, CK, HSTROPN #### [facility] [address] [place], [place] [address] Dr. Frank Nugent TROPONIN, HIGH SENSITIVITYon 09-13-2022 HSTROP 5.4 pg/mL Normal 4.0-76.1 [facility] Comment on above: Result Comment: CUT- OFF POINTS HAVE BEEN ESTABLISHED BASED ON THE FOURTH UNIVERSAL DEFINITIONS OF MYOCARDIAL INFARCTION. THE UPPER REFERENCE LIMIT (URL) OF TROPONIN, DEFINED THE 99TH PERCENTILE OF cTnI DISTRIBUTION IN A REFERENCE POPULATION, HAS BEEN CONFIRMED THE DECISION THRESHOLD FOR LA DIAGNOSIS. Performed By: #### L IPA, CMP, CK, HSTROPN #### [facility] [address] [place], [place] [address] Dr. Frank Nugent URINE MICROSCOPIC ONLYon 05- 05-2023 BACTERIA SMALL Abnormal NONE SEEN [facility] Comment on above: Performed By: #### L IPA, CMP, CK, HSTROPN #### [facility] [address] [address] [address] Frank Nugent Bacteria identified Cx Nom (U) INDICATED Normal [facility] Comment on above: Performed By: #### L IPA, CMP, CK, HSTROPN #### [facility] [address] [address] [address] Frank Nugent CAST NONE SEEN Normal NONE SEEN [facility] Comment on above: Performed By: #### L IPA, CMP, CK, HSTROPN #### [facility] [address] [address] [address] Frank Nugent Crystals LM Nom (Urine sed) NONE SEEN Normal NONE SEEN [facility] Comment on above: Performed By: #### L IPA, CMP, CK, HSTROPN #### [facility] [address] [place] [address] Dr. Frank Nugent Epithelial cells LM Ql (Urine sed) FEW Abnormal NONE SEEN /RARE [facility] Comment on above: Performed By: #### L IPA, CMP, CK, HSTROPN #### [facility] [address] [place] [address] Dr. Frank Nugent MUCOUS NONE SEEN Normal NONE SEEN [facility] Comment on above: Performed By: #### L IPA, CMP, CK, HSTROPN #### [facility] [address] [place] [address] Dr. Frank Nugent RBC 2-5 Abnormal 0-2 [facility] Comment on above: Performed By: #### L IPA, CMP, CK, HSTROPN #### [facility] [address] [address] [address] Frank Nugent WBC 5-10 Abnormal NONE SEEN [facility] Comment on above: Performed By: #### L IPA, CMP, CK, HSTROPN #### [facility] [address] [place] [address] Dr. Frank Nugent XR CHEST 1 Von 09-13-2022 XR CHEST 1 V EXAMINATION: XR CHEST 1 V, 09/13/2022 12:46 PM EDT HISTORY: SHORTNESS OF BREATH COMPARISON: Chest x-ray 10/25/2021 TECHNIQUE: AP portable view of the chest performed. FINDINGS: Medical devices: None. Mildly diminished lung volumes. There is similar prominence of the jalyn bilaterally as well as as the upper mediastinum possibly relating to hilar and mediastinal adenopathy as seen on remote chest CT 05/04/2020. Lungs are otherwise clear. No large pleural effusion, or pneumothorax. IMPRESSION: 1. No acute cardiopulmonary abnormality. 2. Similar prominence of the jalyn bilaterally, and upper mediastinum, possibly relating to hilar and mediastinal adenopathy as seen on remote CT 05/04/2020. Electronically authenticated by: YURY FERNANDEZ Date: 2022-09-13 13:36 Normal [facility] INSULINon 08-12-2022 Insulin 73.3 uIU/mL Critically high 2.6-24.9 [facility] Comment on above: Performed By: #### L IPA, CMP, CK, HSTROPN #### [facility] [address] [place] [address] Dr. Frank Nugent BNPon 08-10-2022 Natriuretic peptide B (Bld) [Mass/Vol] 48.0 pg/mL Normal <=900.0 [facility] Comment on above: Performed By: #### L IPA, CMP, CK, HSTROPN #### [facility] [address] [place] [address] Dr. Frank Nugent CBC AUTO DIFFon 08-10-2022 BASO # 0.0 103/ul Normal 0.0-0.1 [facility] Comment on above: Performed By: #### C BC #### [facility] [address] [place] [address] Dr. Frank Nugent Basophils/100 WBC (Bld) 0.3 % Normal 0.2-2.0 [facility] Comment on above: Performed By: #### C BC #### [facility] [address] [place] [address] Dr. Frank Nugent EO # 0.2 103/ul Normal 0.0-0.7 [facility] Comment on above: Performed By: #### C BC #### [facility] [address] [place] [address] Dr. Frank Nugent Eosinophils/100 WBC (Bld) 4.9 % Normal 0.9-7.0 [facility] Comment on above: Performed By: #### C BC #### [facility] [address] [place] [address] Dr. Frank Nugent Erythrocyte distribution width (RBC) [Ratio] 12.8 % Normal 11.0-15.0 [facility] Comment on above: Performed By: #### C BC #### [facility] [address] [place] [address] Dr. Frank Nugent Hematocrit (Bld) [Volume fraction] 43.8 % Normal 42.0-54.0 [facility] Comment on above: Performed By: #### C BC #### [facility] [address] [place] [address] Dr. Frank Nugent Hemoglobin (Bld) [Mass/Vol] 15.4 g/dL Normal 14.0-18.0 [facility] Comment on above: Performed By: #### C BC #### [facility] [address] [place] [address] Dr. Frank Nugent IG # 0.00 10e3/ul Normal 0.00-0.03 [facility] Comment on above: Performed By: #### C BC #### [facility] [address] [place] [address] Dr. Frank Nugent IG % 0.0 % Normal 0.0-0.5 [facility] Comment on above: Performed By: #### C BC #### [facility] [address] [place] [address] Dr. Frank Nugent LYMPH # 0.8 103/ul Critically low 1.2-3.8 [facility] Comment on above: Performed By: #### C BC #### [facility] [address] [place] [address] Dr. Frank Nugent Lymphocytes/100 WBC (Bld) 23.9 % Normal 20.5-60.0 [facility] Comment on above: Performed By: #### C BC #### [facility] [address] [place] [address] Dr. Frank Nugent MANUAL DIFF REQ NO Normal [facility] Comment on above: Performed By: #### C BC #### [facility] [address] [place] [address] Dr. Frank Nugent MCH (RBC) [Entitic mass] 30.0 pg Normal 25.9-34.0 [facility] Comment on above: Performed By: #### C BC #### [facility] [address] [place] [address] Dr. Frank Nugent MCHC (RBC) [Mass/Vol] 35.2 g/dL Normal 29.9-35.2 [facility] Comment on above: Performed By: #### C BC #### [facility] [address] [place] [address] Dr. Frank Nugent MCV (RBC) [Entitic vol] 85.2 fL Normal 80.0-94.0 [facility] Comment on above: Performed By: #### C BC #### [facility] [address] [place] [address] Dr. Frank Nugent MONO # 0.4 103/ul Normal 0.3-0.8 [facility] Comment on above: Performed By: #### C BC #### [facility] [address] [place] [address] Dr. Frank Nugent Monocytes/100 WBC (Bld) 12.8 % Critically high 1.7-12.0 [facility] Comment on above: Performed By: #### C BC #### [facility] [address] [place] [address] Dr. Frank Nugent NEUT # 1.9 103/ul Normal 1.4-6.5 [facility] Comment on above: Performed By: #### C BC #### [facility] [address] [place] [address] Dr. Frank Nugent Neutrophils/100 WBC (Bld) 58.1 % Normal 43.0-75.0 [facility] Comment on above: Performed By: #### C BC #### [facility] [address] [address] [address] Frank Nugent Platelet mean volume (Bld) [Entitic vol] 11.3 fL Normal 9.5-13.5 [facility] Comment on above: Performed By: #### C BC #### [facility] [address] [address] [address] Frank Nugent PLT 224 103/ul Normal 150-450 [facility] Comment on above: Performed By: #### C BC #### [facility] [address] [address] [address] Frank Nugent RBC 5.14 106/ul Normal 4.70-6.10 [facility] Comment on above: Performed By: #### C BC #### [facility] [address] [place] [address] Dr. Frank Nugent WBC 3.3 103/ul Critically low 4.0-11.0 [facility] Comment on above: Performed By: #### C BC #### [facility] [address] [place] [address] Dr. Frank Nugent FREE THYROXINE INDEX T7on FTI 2.63 Normal 1.30-4.50 [facility] Comment on above: Performed By: #### L IPA, CMP, CK, HSTROPN #### [facility] [address] [place] [address] Dr. Frank Nugent T3U 35.0 % Normal 33.0-40.0 [facility] Comment on above: Performed By: #### L IPA, CMP, CK, HSTROPN #### [facility] [address] [place] [address] Dr. Frank Nugent T4 [Mass/Vol] 7.50 ug/dL Normal 4.50-12.10 [facility] Comment on above: Performed By: #### L IPA, CMP, CK, HSTROPN #### [facility] [address] [place] [address] Dr. Frank Nugent GLYCOHEMOGLOBIN A1Con 2022 ADA RECOMMENDATION SEE BELOW Normal [facility] Comment on above: Result Comment: ADA RECOMMENDED LIMIT 4.0 - 6.0 ADA THERAPEUTIC TARGET < 7.0 ACTION SUGGESTED > 7.0 Performed By: #### A 1C #### [facility] [address] [address] [address] Frank Nugent Glucose [Mass/Vol] 169 mg/dL Normal [facility] Comment on above: Performed By: #### A 1C #### [facility] [address] [address] [address] Frank Nugent HbA1c (Bld) [Mass fraction] 7.5 % Critically high 4.5-6.2 [facility] Comment on above: Performed By: #### A 1C #### [facility] [address] [place] [address] Dr. Frank Nugent LIPID PROFILEon 08-10-2022 CHOL-HDL RATIO NORM SEE BELOW Normal [facility] [place] Comment on above: Result Comment: 3.3 - 4.4 LOW RISK 4.4 - 7.1 AVERAGE RISK 7.1 - 11.0 MODERATE RISK >11.0 HIGH RISK Performed By: #### L IPA, CMP, CK, HSTROPN #### [facility] [address] [address] [address] Frank Nugent Cholesterol [Mass/Vol] 183 mg/dL Normal <=200 [facility] Comment on above: Performed By: #### L IPA, CMP, CK, HSTROPN #### [facility] [address] [address] [address] Frank Nugent Cholesterol in HDL [Mass/Vol] 29 mg/dL Critically low 40-60 [facility] Comment on above: Performed By: #### L IPA, CMP, CK, HSTROPN #### [facility] [address] [address] [address] Frank Nugent Cholesterol in LDL [Mass/Vol] 83.2 mg/dL Normal [facility] Comment on above: Performed By: #### L IPA, CMP, CK, HSTROPN #### [facility] [address] [address] [address] Frank Nugent Cholesterol.total/Ch olesterol in HDL [Mass ratio] 6.3 {ratio} Normal [facility] Comment on above: Performed By: #### L IPA, CMP, CK, HSTROPN #### [facility] [address] [address] [address] Frank Nugent HDL NORMAL > or = 60 mg/dl - LOW CARDIOVASCULAR RISK <40 mg/dl - HIGH CARDIOVASCULAR RISK Normal [facility] Comment on above: Performed By: #### L IPA, CMP, CK, HSTROPN #### [facility] [address] [address] [address] Frank Nugent LDL CALC NORMAL SEE BELOW Normal [facility] Comment on above: Result Comment: <100 mg/dl OPTIMAL 100 - 129 mg/dl NEAR OR ABOVE OPTIMAL 130 - 159 mg/dl BORDERLINE HIGH 160 - 189 mg/dl HIGH >190 mg/dl VERY HIGH Performed By: #### L IPA, CMP, CK, HSTROPN #### [facility] [address] [place] [address] Dr. Frank Nugent Triglyceride [Mass/Vol] 354 mg/dL Critically high <=150 [facility] Comment on above: Performed By: #### L IPA, CMP, CK, HSTROPN #### [facility] [address] [place] [address] Dr. Frank Nugent VLDL CALC 70.8 mg/dL Normal [facility] Comment on above: Performed By: #### L IPA, CMP, CK, HSTROPN #### [facility] [address] [place] [address] Dr. Frank Nugent PROF 14(COMP METB)on 023 Albumin [Mass/Vol] 4.4 g/dL Normal 3.4-5.0 [facility] Comment on above: Performed By: #### L IPA, CMP, CK, HSTROPN #### [facility] [address] [place] [address] Dr. Frank Nugent Albumin/Globulin [Mass ratio] 1.2 {ratio} Normal [facility] Comment on above: Performed By: #### L IPA, CMP, CK, HSTROPN #### [facility] [address] [address] [address] Frank Nugent ALP [Catalytic activity/Vol] 81 U/L Normal 46-116 [facility] Comment on above: Performed By: #### L IPA, CMP, CK, HSTROPN #### [facility] [address] [place] [address] Dr. Frank Nugent ALT [Catalytic activity/Vol] 102 U/L Critically high 16-63 [facility] Comment on above: Performed By: #### L IPA, CMP, CK, HSTROPN #### [facility] [address] [address] [address] Frank Nugent Anion gap [Moles/Vol] 14.6 mmol/L Normal [facility] Comment on above: Performed By: #### L IPA, CMP, CK, HSTROPN #### [facility] [address] [place] [address] Dr. Frank Nugent AST [Catalytic activity/Vol] 55 U/L Critically high 15-37 [facility] Comment on above: Performed By: #### L IPA, CMP, CK, HSTROPN #### [facility] [address] [address] [address] Frank Nugent Bilirubin [Mass/Vol] 1.0 mg/dL Normal 0.2-1.0 [facility] Comment on above: Performed By: #### L IPA, CMP, CK, HSTROPN #### [facility] [address] [address] [address] Frank Nugent Calcium [Mass/Vol] 9.5 mg/dL Normal 8.5-10.1 [facility] Comment on above: Performed By: #### L IPA, CMP, CK, HSTROPN #### [facility] [address] [place] [address] Dr. Frank Nugent Chloride [Moles/Vol] 103 mmol/L Normal 98-107 [facility] Comment on above: Performed By: #### L IPA, CMP, CK, HSTROPN #### [facility] [address] [place] [address] Dr. Frank Nugent CO2 [Moles/Vol] 23.4 mmol/L Normal 21.0-32.0 [facility] Comment on above: Performed By: #### L IPA, CMP, CK, HSTROPN #### [facility] [address] [address] [address] Frank Nugent Creatinine [Mass/Vol] 0.88 mg/dL Normal 0.70-1.30 [facility] Comment on above: Performed By: #### L IPA, CMP, CK, HSTROPN #### [facility] [address] [address] [address] Frank Nugent EGFR-AF CITIZEN OF [place] >60 Normal >=60 [facility] Comment on above: Performed By: #### L IPA, CMP, CK, HSTROPN #### [facility] [address] [address] [address] Frank Nugent EGFR-NON AF CITIZEN OF [place] >60 Normal >=60 [facility] Comment on above: Performed By: #### L IPA, CMP, CK, HSTROPN #### [facility] [address] [address] [address] Frank Nugent Globulin (S) [Mass/Vol] 3.6 g/dL Normal [facility] Comment on above: Performed By: #### L IPA, CMP, CK, HSTROPN #### [facility] [address] [address] [address] Frank Nugent Glucose [Mass/Vol] 164 mg/dL Critically high 74-106 [facility] Comment on above: Performed By: #### L IPA, CMP, CK, HSTROPN #### [facility] [address] [address] [address] Frank Nugent Potassium [Moles/Vol] 4.0 mmol/L Normal 3.5-5.1 [facility] Comment on above: Performed By: #### L IPA, CMP, CK, HSTROPN #### [facility] [address] [address] [address] Frank Nugent Protein [Mass/Vol] 8.0 g/dL Normal 6.4-8.2 [facility] Comment on above: Performed By: #### L IPA, CMP, CK, HSTROPN #### [facility] [address] [address] [address] Frank Nugent Sodium [Moles/Vol] 137 mmol/L Normal 136-145 [facility] Comment on above: Performed By: #### L IPA, CMP, CK, HSTROPN #### [facility] [address] [place] [address] Dr. Frank Nugent Urea nitrogen [Mass/Vol] 16.0 mg/dL Normal 7.0-18.0 [facility] Comment on above: Performed By: #### L IPA, CMP, CK, HSTROPN #### [facility] [address] [place] [address] Dr. Frank Nugent Urea nitrogen/Creatinine [Mass ratio] 18.2 mg/mg Normal [facility] Comment on above: Performed By: #### L IPA, CMP, CK, HSTROPN #### [facility] [address] [place] [address] Dr. Frank Nugent TSHon 08-10-2022 TSH 0.879 uIU/mL Normal 0.358-3.740 [facility] Comment on above: Performed By: #### L IPA, CMP, CK, HSTROPN #### [facility] [address] [place] [address] Dr. Frank Nugent URIC ACID SERUMon 08-10-2022 Urate [Mass/Vol] 5.1 mg/dL Normal 3.5-7.2 [facility] Comment on above: Performed By: #### L IPA, CMP, CK, HSTROPN #### [facility] [address] [place] [address] Dr. Frank Nugent VITAMIN D 25 OHon 08-10-2022 VIT D 25-OH 12.1 ng/mL Normal [facility] Comment on above: Performed By: #### P SASC, VITAD #### [facility] [address] [place] [address] Dr. Frank Nugent VIT D RANGES SEE BELOW Normal [facility] Comment on above: Result Comment: <20 ng/mL Vit D deficient 20 - <30 ng/mL Vit D insufficient 30 - 100 ng/mL Vit D sufficient >100 ng/mL Potential Toxicity Performed By: #### P SASC, VITAD #### [facility] [address] [address] [address] Frank Nugent Urinalysison 04-25-2021 Appearance (U) Clear Normal Clear [facility] Comment on above: Order Comment: Name Collection Type:: Clean-Voided Midstream Performed By: #### U A #### [facility] [address] [place] [address] [place] Bilirubin,Urine Negative Normal Negative [facility] Comment on above: Order Comment: Name Collection Type:: Clean-Voided Midstream Performed By: #### U A #### [facility] [address] [place] [address] [place] Color (U) Yellow Normal Yellow [facility] Comment on above: Order Comment: Name Collection Type:: Clean-Voided Midstream Performed By: #### U A #### [facility] [address] [place] [address] [place] Glucose Ql (U) Normal Normal Normal [facility] Comment on above: Order Comment: Name Collection Type:: Clean-Voided Midstream Performed By: #### U A #### [facility] [address] [place] [address] [place] Ketones Ql (U) Negative Normal Negative [facility] Comment on above: Order Comment: Name Collection Type:: Clean-Voided Midstream Performed By: #### U A #### [facility] [address] [place] [address] [place] Leukocyte esterase Test strip Ql (U) Negative Normal Negative [facility] Comment on above: Order Comment: Name Collection Type:: Clean-Voided Midstream Performed By: #### U A #### [facility] [address] [place] [address] [place] Nitrite,Urine Negative Normal Negative [facility] Comment on above: Order Comment: Name Collection Type:: Clean-Voided Midstream Performed By: #### U A #### [place] [address] [place] Occult Blood,Urine Negative Normal Negative [facility] Comment on above: Order Comment: Name Collection Type:: Clean-Voided Midstream Result Comment: PERF ORMED BY: [place] [address] PATHOLOGIST GREASE REMOVER HARESH LUI M.D. Performed By: #### U A #### [address] pH (U) 6.0 [pH] Normal 5.0-9.0 [facility] Comment on above: Order Comment: Name Collection Type:: Clean-Voided Midstream Performed By: #### U A #### [address] Protein,Urine Negative Normal Negative [facility] Comment on above: Order Comment: Name Collection Type:: Clean-Voided Midstream Performed By: #### U A #### [address] Specificy Pratt,Urine 1.018 Normal 1.001-1.030 [facility] Comment on above: Order Comment: Name Collection Type:: Clean-Voided Midstream Performed By: #### U A #### [address] Urobilinogen,Urine Normal Normal Normal [facility] Comment on above: Order Comment: Name Collection Type:: Clean-Voided Midstream Performed By: #### U A #### [place] [address] [place] XR chest 1V portableon 04-25 [address] [facility] [place] [address] [place] [address] XRay Report Signed Patient: Jerry Wilson MR#: [id number] : 1970 Acct:[id number] Age/Sex: 50 / M ADM Date: 04/24/21 Loc: ER Room: Type: [facility] ER Attending Dr: Ordering Provider: Nitesh Sanches DO Date of Service: 04/24/21 XR/XR chest 1V portable: Dizziness Copies to: Nitesh Sanches DO PORTABLE AP ERECT CHEST 0250 hours CLINICAL HISTORY: Headaches and shortness of breath. COVID +. COMPARISON: None Assessment is slightly limited by body habitus. The heart is within normal limits. There is minor coarsening of interstitial markings. There is no focal consolidation. There is no effusion or pneumothorax. The osseous structures are intact. Degenerative changes seen at the right shoulder. XR/XR chest 1V portable IMPRESSION: NO DEFINITE ACUTE FINDINGS Impression dictated by: Daphne Hutchinson M.D.04/25/2021 7:58 AM Dictation Location: [place] [address] Transcribed By: [facility] 04/25/21757 Dictated By: Daphne Hutchinson MD 04/25/21756 Signed By: 04/25/21757 Normal [facility] B-Type Natriuretic Peptideon 04-24-2021 Natriuretic peptide B (Bld) [Mass/Vol] 20.0 pg/mL Normal 5-100 [facility] Comment on above: Result Comment: PERF ORMED BY: [place] [address] PATHOLOGIST GREASE REMOVER HARESH LUI M.D. Performed By: #### H S TROP, CMP, CBC, BNP, MG #### [address] COVID-19 Antigenon COVID-19 Antigen Results called at 2336 on 04/24/21 Healthcare Worker?: N Adolfo Reference Adolfo Reference Negative Adolfo Blank COVID19 Pos Results Positive results will only be called to COVID19 Det Results Providers for the following groups of patients: COVID19 Pos Results Pre-Surgical Testing, Emergency Room, and Inpatients. Adolfo Blank SARS-CoV+SARS-CoV-2 (COVID-19) Ag [Presence] in Respiratory specimen by Rapid immunoassay Positive for SARS Antigen by [employer] Adolfo Disclaimer The Adolfo SARS Antigen [employer] does not differentiate Adolfo Disclaimer between SARS-CoV and SARS-CoV-2. COVID19 Blank Space Adolfo Disclaimer This test was developed and its performance Adolfo Disclaimer characteristic determined by [employer] and Adolfo Disclaimer validated at [facility]. This Adolfo Disclaimer test has not been FDA cleared or approved. This Adolfo Disclaimer test has been authorized by FDA under an Emergency Use Adolfo Disclaimer Authorization (EUA). This test has been validated Adolfo Disclaimer in accordance with the FDA's Guidance Document (Policy Adolfo Disclaimer for Diagnostics Testing in Laboratories Certified to Adolfo Disclaimer Perform High Complexity Testing under CLIA prior to Adolfo Disclaimer Emergency Use Authorization for Coronavirus Adolfo Disclaimer is during the Public Health Emergency) Adolfo Disclaimer issued on August 12, 2019. This test is only authorized Adolfo Disclaimer for the duration of time the declaration that Adolfo Disclaimer circumstances exist justifying the authorization of Adolfo Disclaimer the emergency use of in vitro diagnostic tests for Adolfo Disclaimer detection of SARS-CoV-2 virus and/or diagnosis of Adolfo Disclaimer COVID-19 infection under section 564(b)(1) of the Adolfo Disclaimer Act, 21 U.S.C. 360bbb-3(b)(1), unless the Adolfo Disclaimer authorization is terminated or revoked sooner. PERFORMED BY: [facility] [place] [address] PATHOLOGIST GREASE REMOVER HARESH LUI M.D. [facility] Comment on above: Performed By: #### C OVID-19 ADOLFO, SOFIAPOS #### [address] Complete Blood Count Auto Di ffon 04-24-2021 Basophils (Bld) [#/Vol] 0.0 10*3/uL Normal 0.0-0.2 [facility] Comment on above: Result Comment: PERF ORMED BY: [place] [address] PATHOLOGIST GREASE REMOVER HARESH LUI M.D. Performed By: #### H S TROP, CMP, CBC, BNP, MG #### [address] Basophils/100 WBC (Bld) 0.7 % Normal . [facility] Comment on above: Performed By: #### H S TROP, CMP, CBC, BNP, MG #### [address] Eosinophils (Bld) [#/Vol] 0.1 10*3/uL Normal 0.0-0.45 [facility] Comment on above: Performed By: #### H S TROP, CMP, CBC, BNP, MG #### [address] Eosinophils/100 WBC (Bld) 1.8 % Normal . [facility] Comment on above: Performed By: #### H S TROP, CMP, CBC, BNP, MG #### [address] Erythrocyte distribution width (RBC) [Ratio] 12.9 % Normal 12.0-14.8 [facility] Comment on above: Performed By: #### H S TROP, CMP, CBC, BNP, MG #### [address] Hematocrit (Bld) [Volume fraction] 43.7 % Normal 38.8-50.0 [facility] Comment on above: Performed By: #### H S TROP, CMP, CBC, BNP, MG #### [address] Hemoglobin (Bld) [Mass/Vol] 15.0 g/dL Normal 13.0-17.0 [facility] Comment on above: Performed By: #### H S TROP, CMP, CBC, BNP, MG #### [address] Lymphocytes (Bld) [#/Vol] 0.7 10*3/uL Low 1.00-4.8 [facility] Comment on above: Performed By: #### H S TROP, CMP, CBC, BNP, MG #### [address] Lymphocytes/100 WBC (Bld) 14.0 % Normal . [facility] Comment on above: Performed By: #### H S TROP, CMP, CBC, BNP, MG #### [address] MCH (RBC) [Entitic mass] 29.7 pg Normal 27.5-35.2 [facility] Comment on above: Performed By: #### H S TROP, CMP, CBC, BNP, MG #### [address] MCV (RBC) [Entitic vol] 86.4 fL Normal 83.5-101 [facility] Comment on above: Performed By: #### H S TROP, CMP, CBC, BNP, MG #### [address] Mean Corpuscular HGB Conc 34.4 g/dL Normal 32.5-35.6 [facility] Comment on above: Performed By: #### H S TROP, CMP, CBC, BNP, MG #### [address] Monocytes (Bld) [#/Vol] 1.1 10*3/uL High 0.0-0.8 [facility] Comment on above: Performed By: #### H S TROP, CMP, CBC, BNP, MG #### [address] Monocytes/100 WBC (Bld) 21.3 % Normal . [facility] Comment on above: Performed By: #### H S TROP, CMP, CBC, BNP, MG #### [place] [address] [place] Neutrophils (Bld) [#/Vol] 3.2 10*3/uL Normal 1.8-7.7 [facility] Comment on above: Performed By: #### H S TROP, CMP, CBC, BNP, MG #### [place] [address] [place] Neutrophils/100 WBC (Bld) 62.2 % Normal . [facility] Comment on above: Performed By: #### H S TROP, CMP, CBC, BNP, MG #### [place] [address] [place] Nucleated RBC/100 WBC (Bld) [Ratio] 0.2 % Normal 0-0.5 [facility] Comment on above: Performed By: #### H S TROP, CMP, CBC, BNP, MG #### [address] Platelet mean volume (Bld) [Entitic vol] 9.6 fL Normal 6.6-10.1 [facility] Comment on above: Performed By: #### H S TROP, CMP, CBC, BNP, MG #### [address] Platelets (Bld) [#/Vol] 201 10*3/uL Normal 150-450 [facility] Comment on above: Performed By: #### H S TROP, CMP, CBC, BNP, MG #### [place] [address] [place] RBC (Bld) [#/Vol] 5.06 10*6/uL Normal 3.90-5.60 [facility] Comment on above: Performed By: #### H S TROP, CMP, CBC, BNP, MG #### [place] [address] [place] WBC (Bld) [#/Vol] 5.2 10*3/uL Normal 4.5-11.0 [facility] Comment on above: Performed By: #### H S TROP, CMP, CBC, BNP, MG #### [facility] [address] [place] [address] Comprehensive Metabolic Pane alan 04-24-2021 Albumin [Mass/Vol] 4.2 g/dL Normal 3.2-5.5 [facility] Comment on above: Performed By: #### H S TROP, CMP, CBC, BNP, MG #### [facility] [address] [place] [address] Albumin/Globulin [Mass ratio] 1.3 {ratio} Normal [facility] Comment on above: Performed By: #### H S TROP, CMP, CBC, BNP, MG #### [facility] [address] [place] [address] ALP [Catalytic activity/Vol] 55 U/L Normal 32-92 [facility] Comment on above: Performed By: #### H S TROP, CMP, CBC, BNP, MG #### [facility] [address] [place] [address] ALT [Catalytic activity/Vol] 85 U/L High 10-60 [facility] Comment on above: Performed By: #### H S TROP, CMP, CBC, BNP, MG #### [facility] [address] [place] [address] AST [Catalytic activity/Vol] 82 U/L High 10-42 [facility] Comment on above: Performed By: #### H S TROP, CMP, CBC, BNP, MG #### [facility] [address] [place] [address] Bilirubin [Mass/Vol] 1.1 mg/dL Normal 0.3-1.2 [facility] Comment on above: Performed By: #### H S TROP, CMP, CBC, BNP, MG #### [facility] [address] [place] [address] Calcium [Mass/Vol] 9.6 mg/dL Normal 8.2-10.2 [facility] Comment on above: Performed By: #### H S TROP, CMP, CBC, BNP, MG #### [place] [address] [place] Chloride [Moles/Vol] 103 mmol/L Normal 95-114 [facility] Comment on above: Performed By: #### H S TROP, CMP, CBC, BNP, MG #### [facility] [address] CO2 [Moles/Vol] 21.2 mmol/L Low 22.0-30.0 [facility] Comment on above: Performed By: #### H S TROP, CMP, CBC, BNP, MG #### [address] Creatinine [Mass/Vol] 1.16 mg/dL Normal 0.64-1.27 [facility] Comment on above: Performed By: #### H S TROP, CMP, CBC, BNP, MG #### [address] Creatinine Clr Calc Pharmacy 118.79 [facility] Comment on above: Performed By: #### H S TROP, CMP, CBC, BNP, MG #### [address] Estimated GFR ( Stacey > 60 [facility] Comment on above: Result Comment: GFR estimated reference range: According to KDOQI guidelines, <60 ml/min/1.73m2 is sufficient to diagnose a patient with chronic kidney disease. Performed By: #### H S TROP, CMP, CBC, BNP, MG #### [facility] [address] [place] [address] Estimated GFR (Non- Am > 60 [facility] Comment on above: Performed By: #### H S TROP, CMP, CBC, BNP, MG #### [facility] [address] [place] [address] Globulin (S) [Mass/Vol] 3.2 g/dL [facility] Comment on above: Performed By: #### H S TROP, CMP, CBC, BNP, MG #### [facility] [address] [place] [address] Glucose [Mass/Vol] 144 mg/dL High 70-100 [facility] Comment on above: Result Comment: [facility] Glucose Reference Range is dependent on time and content of last meal. Glucose of more than 200 mg/dL in a nonstressed, ambulatory subject supports the diagnosis of Diabetes Mellitus. ADA recommended reference range Performed By: #### H S TROP, CMP, CBC, BNP, MG #### [facility] [address] Potassium [Moles/Vol] 4.0 mmol/L Normal 3.5-5.1 [facility] Comment on above: Performed By: #### H S TROP, CMP, CBC, BNP, MG #### [facility] [address] Protein [Mass/Vol] 7.4 g/dL Normal 6.1-7.9 [facility] Comment on above: Performed By: #### H S TROP, CMP, CBC, BNP, MG #### [address] Sodium [Moles/Vol] 135 mmol/L Low 136-146 [facility] Comment on above: Performed By: #### H S TROP, CMP, CBC, BNP, MG #### [address] Urea nitrogen [Mass/Vol] 20 mg/dL Normal 9-23 [facility] Comment on above: Performed By: #### H S TROP, CMP, CBC, BNP, MG #### [address] ECG 12 lead ECGon 04-24-2021 [address] [facility] [place] [address] [place] [address] Electrocardiograph Report Signed Patient: Jerry Wilson MR#: [id number] : 1970 Acct:[id number] Age/Sex: 50 / M ADM Date: 04/24/21 Loc: ER Room: Type: [facility] ER Attending Dr: Ordering Provider: Nitesh Sanches DO Date of Service: 04/24/21 ECG/ECG 12 lead ECG: Dizziness Copies to: Test Reason : Blood Pressure : / mmHG Vent. Rate : 091 BPM Atrial Rate : 091 BPM P-R Int : 136 ms QRS Dur : 104 ms QT Int : 390 ms P-R-T Axes : 067 -36 068 degrees QTc Int : 479 ms Normal sinus rhythm Confirmed by Nitesh SANCHES DO ([id number]) on 04/25/2021 12:42:23 AM Referred By: Electronically Signed By:Nitesh SANCHES DO Transcribed By: MUS Signed By Nitesh Sanches DO 1 06/26/20 0042 Normal [facility] Magnesiumon 04-24-2021 Magnesium [Mass/Vol] 1.9 mg/dL Normal 1.6-2.6 [facility] Comment on above: Result Comment: PERF ORMED BY: [place] [address] PATHOLOGIST GREASE REMOVER HARESH LUI M.D. Performed By: #### H S TROP, CMP, CBC, BNP, MG #### [facility] [address] [place] [address] Partial Thromboplastin Timeo n 04-24-2021 aPTT Coag (Bld) [Time] 29.3 s Normal 25.1-36.5 [facility] Comment on above: Result Comment: PERF ORMED BY: [place] [address] PATHOLOGIST GREASE REMOVER HARESH LUI M.D. Performed By: #### P TT, PT #### [facility] [address] [place] [address] Prothrombin Time INRon 04-24 INR Coag (PPP) [Relative time] 1.0 {INR} Normal [facility] Comment on above: Result Comment: INR Therapeutic Range A) Pre- and Peroperative OAT started two weeks before surgery. NOT HIP SURGERY: 1.5 - 2.5 HIP SURGERY: 2 - 3 B) Primary and secondary prevention of venous THROMBOSIS: 2 - 3 C) Active venous thrombosis, pulmonary embolism and prevention of recurrent venous thrombosis: 2 - 3 D) Prevention of arterial thromboembolism including patients with mechanical heart valves: 3 - 4.5 Performed By: #### P TT, PT #### [facility] [address] PT Coag (PPP) [Time] 11.5 s Normal 9.0-12.9 [facility] Comment on above: Performed By: #### P TT, PT #### [address] Adolfo Ag Positiveon 04-24-20 21 Adolfo Ag Positive Positive Critically abnormal Negative [facility] Comment on above: Result Comment: This is a duplicate Adolfo SARS Antigen ([facility]) result to be used for statistical tracking purpose only. PERFORMED BY: [place] [address] PATHOLOGIST GREASE REMOVER HARESH LUI M.D. Performed By: #### C OVID-19 ADOLFO, SOFIAPOS #### [address] Troponin I High Sensitivityo n 04-24-2021 Troponin I High Sensitivity 4 pg/mL Normal 0-20 [facility] Comment on above: Result Comment: PERF ORMED BY: [place] [address] PATHOLOGIST GREASE REMOVER HARESH LUI M.D. Performed By: #### H S TROP, CMP, CBC, BNP, MG #### [address] Follow Up (Pulmonary Medicin e)on 01-12-2021 Follow Up (Pulmonary Medicine) Diagnoses/Problems Dyspnea on exertion (786.09) (R06.00) Sarcoidosis (135) (D86.9) CLEM on CPAP (327.23,V46.8) (G47.33,Z99.89) Orders Cardiopulmonary Stress Test (Met Stress Test); Status:Hold For - Scheduling; Requested for:12Jan2021; Perform:[facility] ([place]); Due:[id number];Ordere d; For:Dyspnea on exertion; Ordered By:Carter Kruse; Patient Discussion/Summary Mr. Wilson, it was a pleasure seeing you in clinic today. We discussed the following: -I would like you to get a cardiopulmonary test Will see you back in clinic in 6-8 weeks once the test is completed. Provider Impressions Mr. Wilson is a 50 y.o man, never a smoker, being evaluated for dyspnea on exertion and sarcoidosis. #Dyspnea on exertion: -Although granulomas and mediastinal lymph nodes, there is no parenchymal involvement of granulomatous disease to explain dyspnea on exertion. Evaluated for alternative diagnosis, in particular diastolic heart failure and pulmonary hypertension, but echo was normal 01/12/2021->on RA, 191 m. Peak SpO2 of 95%. Gary SpO2 92%. (HR went up from 85 to 120 and BP from 150-202 systolic) highly suggestive of deconditioning -will obtain CPET # Lung sarcoidosis: -Biopsy with noncaseating granulomas of lymph nodes in the chest could be consistent with sarcoidosis, however would need to rule out chronic beryllium disease given his beryllium exposure. -Sent serum beryllium lymphocyte proliferation test (pending). #On prednisone therapy: -Did not notice any improvement in his dyspnea. Is experiencing a lot of weight gain and mood changes on the medication. -tapered off prednisone as follows: We will go down from 60 mg daily to 40mg daily for 2 weeks, then down to 20 mg daily for 2 weeks until he sees me in clinic. # Sarcoidosis Multi-organ involvement evaluation: 1) General: no fever, chills, asthenia, fatigue or weight loss. 2) Neuro: No sign of neurosarcoidosis. 3) Eyes: no hx of uveitis, retinal vascular change or conjunctival nodules. Yearly ophthalmology appointment. 4) ADP: no peripheral adp noted on exam today 5) skin: no hx of erythema nodosum, lupus pernio, papules, nodules, plaques or scar 6) Liver: no transaminitis. Year LFTs. 7) Heart: Intiial echo and yearly ECG thereafter 8) Kidneys: elevated 1,25OH vitamin D and 24hr urine calcium but no hx of stones, normal UA and creat. Will monitor for now 9) MSK: no muscle weakness 10) GI/: very uncommon involvement, no clinic signs #CLEM: -On CPAP therapy. -Follows up with sleep clinic. Return to clinic in 4 to 6 weeks. Chief Complaint Follow up visit here to discuss results from today's pulmonary testing. History of Present IllnessMr. Wilson is a 50 y.o man, never a smoker, being evaluated for dyspnea on exertion and sarcoidosis. PCP: Dr. Camacho Other: Dr. Adan (pulmonary in [place]) HPI: 11/22/2020: At baseline, he had no dyspnea on exertion or at rest. His symptoms started about 1 year ago, but seem to be progressing. He is active in her everyday life and carries loads and does strenuous exercise. He has to stop for breath after walking about 100 meters or a few minutes (mMRC 3). He also relates some orthopnea, no pnd, and occasional jasiel. He has gained 50 pounds in the last 6 months. He also relates occasional cough, wheezing, and clear, sputum. No night cough. No hemoptysis. No fever or shivering chills. He has no runny nose, or a tingling sensation in the back of his throat. He denies chest pain or heartburn. 01/12/2021: Since the last visit, patient's breathing is mostly unchanged. Weaned off steroids. Did not feel a big difference off the steroids. Had HRCT, echo, pfts, 6MWT and labs done (results below). Previous pulmonary history: He has no history of recurrent infections, or lung disease as a child. He had no previous lung hx, never on oxygen or inhaler therapy. He had a CT chest that showed hilar/mediastinal adenopahty. He had a bronchoscopy with EBUS by Dr. Miguel on 07/24/2020. BAL with 32% lymph (CD4/CD8 ratio of 5). Station 7 bx with non-caseating granulomas. Cultures were negative. 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 He initially felt slightly improved but shortly started worsening again. 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 Has known exposure to asbestos, silica or beryllium CTD evaluation: No hx of joint pain/swelling, skin rashes, Raynaud's, sicca syndrome, eye redness, muscle pain and weakness, difficulty swallowing. Family History: No family history of lung diseases or cancer Imaging history: (I have personally reviewed the imaging below) 12/15/2020 HRC (more content not included)... Normal [facility] Tobacco Screening.on Fall risk assessment a) No falls within the last year [facility] Work Phone: Tobacco use status CPHS b) No [facility] Work Phone: CALCIUM,URINE 24HRon 021 CALCIUM, URINE 27.5 mg/dL Normal Not Established [facility] Comment on above: Performed By: #### T SPOT #### [facility] [address] [place] [address] CALCIUM,URINE 24HR 690 mg/24h High 100 - 300 [facility] Comment on above: Performed By: #### T SPOT #### [facility] [address] [place] [address] CREATININE, 24HR 2.81 g/24h High 0.87 - 2.41 [facility] Comment on above: Performed By: #### T SPOT #### [facility] [address] [place] [address] CREATININE, URINE 111.9 mg/dL Normal 20.0 - 370.0 [facility] Comment on above: Performed By: #### T SPOT #### [facility] [address] [place] [address] COLLECTION PERIOD 24 hrs Normal [facility] Comment on above: Performed By: #### T SPOT #### [facility] [address] [place] [address] URINE VOLUME 2508 mL Normal [facility] Comment on above: Performed By: #### T SPOT #### [facility] [address] [place] [address] CT CHEST WO CONTRASTon 12-15 CT CHEST WO CONTRAST Patient Name: JERRY WILSON STUDY: CT CHEST WO CONTRAST; 12/15/2020 3:31 pm INDICATION: dyspnea on exertion. COMPARISON: 05/04/2020 CT chest without contrast ACCESSION NUMBER(S): [id number] ORDERING CLINICIAN: CARTER KRUSE TECHNIQUE: Helical data acquisition of the chest was obtained without IV contrast material. Images were reformatted in axial, coronal, and sagittal planes. FINDINGS: LUNGS AND AIRWAYS: The trachea and central airways are patent. No endobronchial lesion. Lungs are clear. MEDIASTINUM AND JALYN, LOWER NECK AND AXILLA: The visualized thyroid gland is within normal limits. Stable numerous enlarged mediastinal hilar, subcarinal, and paratracheal lymph nodes. For example there is a right paratracheal lymph node which measures up to 2.6 cm (109/339). Esophagus appears within normal limits as seen. HEART AND VESSELS: The thoracic aorta is of normal course and caliber with mild vascular calcifications. Main pulmonary artery and its branches are normal in caliber. No coronary artery calcifications are seen. The study is not optimized for evaluation of coronary arteries. The cardiac chambers are not enlarged. No evidence of pericardial effusion. UPPER ABDOMEN: The visualized subdiaphragmatic structures demonstrate no remarkable findings. CHEST WALL AND OSSEOUS STRUCTURES: There are no suspicious osseous lesions. Multilevel degenerative changes are present IMPRESSION: 1. Stable extensive mediastinal lymphadenopathy with differential considerations favoring sarcoid over indolent lymphoma I personally reviewed the images/study and I agree with the findings as stated. This study was interpreted at [facility], [place], [place]. Electronically signed by: YAMILKA MICHELLE MD [facility] Echocardiogramon 12-15-2020 Echocardiography [facility] ([facility] [address] [place] [address] and TRANSTHORACIC ECHOCARDIOGRAM REPORT Patient Name: JERRY Rowan Physician: [id number] Russ Villarreal MD Study Date: 12/15/2020 Referring Physician: CARTER KRUSE MRN/PID: [id number] PCP: Accession/Order#: [id number] Department Location: [facility] Date of : 1970 Fellow: Gender: M Nurse: Admit Date: Ice Seller: Bradley Webb [facility] Admission Status: Outpatient Additional Staff: Height: 177.80 cm CC Report to: Weight: 166.01 kg Study Type: Echocardiogram BSA: 2.70 m2 Diagnosis/ICD: J84.9-Interstitial lung disease Indication: Ilerstitial lung disease, Dyspnea on exertion, Sarcoidosis Procedure/CPT: Echo Complete w Full [id number] Patient History: Pertinent History: Sarcoidosis, Dyspnea on exertion, CLEM, CPAP, obesity, HTN. Study Detail: The following Echo studies were performed: 2D, M-Mode, Doppler and color flow. PHYSICIAN INTERPRETATION: Left Ventricle: The left ventricular systolic function is normal, with an estimated ejection fraction of 60%. There are no regional wall motion abnormalities. The left ventricular cavity size is normal. Spectral Doppler shows a normal pattern of left ventricular diastolic filling. Left Atrium: The left atrium is mildly dilated. Right Ventricle: The right ventricle is normal in size. There is normal right ventricular global systolic function. Right Atrium: The right atrium is normal in size. Aortic Valve: The aortic valve was not well visualized. The number of aortic cusps could not be determined from this study. There is no evidence of aortic valve stenosis. There is no evidence of aortic valve regurgitation. The peak instantaneous gradient of the aortic valve is 7.5 mmHg. The mean gradient of the aortic valve is 4.6 mmHg. Mitral Valve: The mitral valve is normal in structure. There is trace mitral valve regurgitation. Tricuspid Valve: The tricuspid valve is structurally normal. No evidence of tricuspid regurgitation. The right ventricular systolic pressure is unable to be estimated. Pulmonic Valve: The pulmonic valve is not well visualized. The pulmonic valve regurgitation was not assessed. Pericardium: There is no pericardial effusion noted. Aorta: The aortic root is normal. CONCLUSIONS: 1. The left ventricular systolic function is normal with a 60% estimated ejection fraction. 2. Poorly visualized anatomical structures due to suboptimal image quality. 3. Aortic valve stenosis is not present. QUANTITATIVE DATA SUMMARY: LA VOLUME: Normal Ranges: LA Vol A4C: 71.9 ml (22+/-6mL/m2) LA Vol A2C: 95.2 ml LA Vol BP: 83.9 ml LA Vol Index A4C: 26.6 ml/m2 LA Vol Index A2C: 35.3 ml/m2 LA Vol Index BP: 31.1 ml/m2 LA Area A4C: 23.8 cm2 LA Area A2C: 27.8 cm2 LA Major Florence A4C: 6.7 cm LA Major Florence A2C: 6.9 cm LA Vol A4C: 68.9 ml LA Vol A2C: 87.1 ml RA VOLUME BY A/L METHOD: Normal Ranges: RA Area A4C: 15.3 cm2 LV SYSTOLIC FUNCTION BY 2D PLANIMETRY (MOD): Normal Ranges: EF-A4C View: 60.1 % (>55%) EF-A2C View: 66.9 % EF-Biplane: 60.9 % LV DIASTOLIC FUNCTION: Normal Ranges: MV Peak E: 0.98 m/s (0.7-1.2 m/s) MV Peak A: 0.64 m/s (0.42-0.7 m/s) E/A Ratio: 1.52 (1.0-2.2) PulmV Sys Jace: 72.08 cm/s PulmV Castelan Jace: 60.74 cm/s PulmV S/D Jace: 1.19 MITRAL VALVE: Normal Ranges: MV DT: 153 msec (150-240msec) AORTIC VALVE: Normal Ranges: AoV Vmax: 1.37 m/s (<1.7m/s) AoV Peak P.5 mmHg (<20mmHg) AoV Mean P.6 mmHg (1.7-11.5mmHg) LVOT Max Jace: 1.08 m/s (<1.1m/s) AoV VTI: 29.62 cm (18-25cm) LVOT VTI: 21.64 cm LVOT Diameter: 2.14 cm (1.8-2.4cm) AoV Area, VTI: 2.63 cm2 (2.5-5.5cm2) AoV Area,Vmax: 2.84 cm2 (2.5-4.5cm2) AoV Dimensionless Index: 0.73 RIGHT VENTRICLE: RV 1 3.8 cm RV 2 2.7 cm RV 3 8.1 cm TRICUSPID VALVE/RVSP: Normal Ranges: IVC Diam: 1.60 cm PULMONIC VALVE: Normal Ranges: PV Accel Time: 138 msec (>120ms) Pulmonary Veins: PulmV Castelan Jace: 60.74 cm/s PulmV S/D Jace: 1.19 PulmV Sys Jace: 72.08 cm/s [id number] Russ Villarreal MD Electronically signed on 12/17/2020 at 10:27:03 PM Final Normal [facility] No Panel Informationon 12-15 [email or web address]?Patien [email or web address]&Date=0 10-17-2020&Time=13%3a 21%3a30%3a00&TestTyp e=ECG&Site=1&OutputT ype=PDF&Ext=PDF [facility] Work Phone: [phone] Normal sinus rhythm [facility] Work Phone: [phone] Normal [facility] Work Phone: [phone] [facility] Work Phone: [phone] [facility] Work Phone: [phone] [facility] Work Phone: [phone] [facility] Work Phone: [phone] [facility] Work Phone: [phone] [facility] Work Phone: [phone] [facility] Work Phone: [phone] [facility] Work Phone: [phone] [facility] Work Phone: [phone] [facility] Work Phone: [phone] [facility] Work Phone: [phone] [facility] Work Phone: [phone] [facility] Work Phone: [phone] [facility] Work Phone: [phone] T-SPOT TBon 11-28-2020 NIL[NEG]CONTROL SPOT COUNT Passed Normal [facility] Comment on above: Performed By: #### T SPOT #### [employer] [address] [place] [address] PANEL A SPOT COUNT 0 Normal [facility] Comment on above: Performed By: #### T SPOT #### [facility] [address] [place] [address] PANEL B SPOT COUNT 0 Normal [facility] Comment on above: Performed By: #### T SPOT #### [facility] [address] [place] [address] POS CONTROL SPOT COUNT Passed Normal [facility] Comment on above: Performed By: #### T SPOT #### [facility] [address] [place] [address] T-SPOT.TB INTERP Negative Normal Normal Valu e: Negative [facility] Comment on above: Result Comment: A ne gative test result does not exclude the possibility of exposure to or infection with Mycobacterium tuberculosis (M. tuberculosis). Patients with recent exposure to TB infected individuals exhibiting a negative T-SPOT.TB result should be considered for retesting within 6 weeks or if other relevant clinical symptoms indicate. Results from T-SPOT.TB testing must be used in conjunction with each individual's epidemiological history, current medical status, and results of other diagnostic evaluations. The T-SPOT.TB test is qualitative and results are reported as positive, borderline or negative, given that the test controls perform as expected. In line with the Centers for Disease Control and Prevention's 2010 recommendation to report quantitative measurements alongside the qualitative result, the laboratory provides spot counts for informational purposes only. The T-SPOT.TB test should not be interpreted as a quantitative test. Performed By: #### T SPOT #### [facility] [address] [place] [address] VITAMIN D 1,25-DIHYDROXYon 0 11-25-2020 VITAMIN D 1,25-DIHYDROXY 116.0 pg/mL High 19.9-79.3 [facility] Comment on above: Result Comment: INTE RPRETIVE INFORMATION: Vitamin D, 1,25-Dihydroxy This test is primarily indicated during patient evaluation for hypercalcemia and renal failure. A normal result does not rule out Vitamin D deficiency. The recommended test for diagnosing Vitamin D deficiency is Vitamin D 25-hydroxy. Performed By: [employer] [address] [place] [address] Foundry Patternmaker: Rebecca Johnson MD Performed By: #### T SPOT #### [facility] [address] [place] [address] MISCELLANEOUS TESTon 021 MISCELLANEOUS Canceled Normal [facility] Comment on above: Order Comment: TEST MISCELLANEOUS TEST WAS CANCELLED, 11/23/2020 08:22 QNS, PLEASE RESUBMIT.. Performed By: #### M ISC1 #### GENERAL [facility]ENDOUT NAME OF SEND OUT TEST Canceled Normal [facility] Comment on above: Order Comment: TEST MISCELLANEOUS TEST WAS CANCELLED, 11/23/2020 08:22 QNS, PLEASE RESUBMIT.. Performed By: #### M ISC1 #### GENERAL SENDOUT CBC AND DIFFERENTIALon 11-22 % AUTOMATED IMMATURE GRAN 0.8 % Normal 0.0 - 0.9 [facility] Comment on above: Result Comment: Ambika ture Granulocyte Count (IG) includes promyelocytes, myelocytes and metamyelocytes but does not include bands. Percent differential counts (%) should be interpreted in the context of the absolute cell counts (cells/L). Performed By: #### T SPOT #### [facility] [address] [place] [address] Basophils (Bld) [#/Vol] 0.01 10*3/uL Normal 0.00 - 0.10 [facility] Comment on above: Performed By: #### T SPOT #### [facility] [address] [place] [address] Basophils/100 WBC (Bld) 0.1 % Normal 0.0 - 2.0 [facility] Comment on above: Performed By: #### T SPOT #### [facility] [address] [place] [address] Eosinophils (Bld) [#/Vol] 0.02 10*3/uL Normal 0.00 - 0.70 [facility] Comment on above: Performed By: #### T SPOT #### [facility] [address] [place] [address] Eosinophils/100 WBC (Bld) 0.2 % Normal 0.0 - 6.0 [facility] Comment on above: Performed By: #### T SPOT #### [facility] [address] [place] [address] Erythrocyte distribution width (RBC) [Ratio] 13.7 % Normal 11.5 - 14.5 [facility] Comment on above: Performed By: #### T SPOT #### [facility] [address] [place] [address] Hematocrit (Bld) [Volume fraction] 47.0 % Normal 41.0 - 52.0 [facility] Comment on above: Performed By: #### T SPOT #### [facility] [address] [place] [address] Hemoglobin (Bld) [Mass/Vol] 15.7 g/dL Normal 13.5 - 17.5 [facility] Comment on above: Performed By: #### T SPOT #### [facility] [address] [place] [address] Lymphocytes (Bld) [#/Vol] 0.59 10*3/uL Low 1.20 - 4.80 [facility] Comment on above: Performed By: #### T SPOT #### [facility] [address] [place] [address] Lymphocytes/100 WBC (Bld) 7.0 % Normal 13.0 - 44.0 [facility] Comment on above: Performed By: #### T SPOT #### [facility] [address] [place] [address] MCHC (RBC) [Mass/Vol] 33.4 g/dL Normal 32.0 - 36.0 [facility] Comment on above: Performed By: #### T SPOT #### [facility] [address] [place] [address] MCV (RBC) [Entitic vol] 91 fL Normal 80 - 100 [facility] Comment on above: Performed By: #### T SPOT #### [facility] [address] [place] [address] Monocytes (Bld) [#/Vol] 0.19 10*3/uL Normal 0.10 - 1.00 [facility] Comment on above: Performed By: #### T SPOT #### [facility] [address] [place] [address] Monocytes/100 WBC (Bld) 2.3 % Normal 2.0 - 10.0 [facility] Comment on above: Performed By: #### T SPOT #### [facility] [address] [place] [address] Neutrophils (Bld) [#/Vol] 7.54 10*3/uL Normal 1.20 - 7.70 [facility] Comment on above: Performed By: #### T SPOT #### [facility] [address] [place] [address] Neutrophils/100 WBC (Bld) 89.6 % Normal 40.0 - 80.0 [facility] Comment on above: Performed By: #### T SPOT #### [facility] [address] [place] [address] NUCLEATED RBC 0.0 /100 WBC Normal 0.0-0.0 [facility] Comment on above: Performed By: #### T SPOT #### [facility] [address] [place] [address] Platelets (Bld) [#/Vol] 222 10*3/uL Normal 150 - 450 [facility] Comment on above: Performed By: #### T SPOT #### [facility] [address] [place] [address] RBC 5.17 x10E12/L Normal 4.50 - 5.90 [facility] Comment on above: Performed By: #### T SPOT #### [facility] [address] [place] [address] WBC (Bld) [#/Vol] 8.4 10*3/uL Normal 4.4 - 11.3 [facility] Comment on above: Performed By: #### T SPOT #### [facility] [address] [place] [address] COMPREHENSIVE PANELon 2020 Albumin [Mass/Vol] 4.7 g/dL Normal 3.4 - 5.0 [facility] Comment on above: Performed By: #### T SPOT #### [facility] [address] [place] [address] ALP [Catalytic activity/Vol] 47 U/L Normal 33 - 120 [facility] Comment on above: Performed By: #### T SPOT #### [facility] [address] [place] [address] ALT [Catalytic activity/Vol] 59 U/L High 10 - 52 [facility] Comment on above: Result Comment: Latricia ents treated with Sulfasalazine may generate falsely decreased results for ALT. Performed By: #### T SPOT #### [facility] [address] [place] [address] Anion gap [Moles/Vol] 20 mmol/L Normal 10 - 20 [facility] Comment on above: Performed By: #### T SPOT #### [facility] [address] [place] [address] AST [Catalytic activity/Vol] 36 U/L Normal 9 - 39 [facility] Comment on above: Performed By: #### T SPOT #### [facility] [address] [place] [address] Bilirubin [Mass/Vol] 1.5 mg/dL High 0.0 - 1.2 [facility] Comment on above: Performed By: #### T SPOT #### [facility] [address] [place] [address] Calcium [Mass/Vol] 10.2 mg/dL Normal 8.6 - 10.6 [facility] Comment on above: Performed By: #### T SPOT #### [facility] [address] [place] [address] Chloride [Moles/Vol] 104 mmol/L Normal 98 - 107 [facility] Comment on above: Performed By: #### T SPOT #### [facility] [address] [place] [address] Creatinine [Mass/Vol] 1.17 mg/dL Normal 0.50 - 1.30 [facility] Comment on above: Performed By: #### T SPOT #### [facility] [address] [place] [address] GFR- AM. >60 Normal >60 [facility] Comment on above: Result Comment: CALC ULATIONS OF ESTIMATED GFR ARE PERFORMED USING THE MDRD STUDY EQUATION FOR THE IDMS-TRACEABLE CREATININE METHODS. CLIN CHEM 2007;53:766-72 Performed By: #### T SPOT #### [facility] [address] [place] [id number] GFR-NON AM. >60 Normal >60 [facility] Comment on above: Performed By: #### T SPOT #### [facility] [address] [place] [address] Glucose [Mass/Vol] 168 mg/dL High 74 - 99 [facility] Comment on above: Performed By: #### T SPOT #### [facility] [address] [place] [address] HCO3 (Bld) [Moles/Vol] 21 mmol/L Normal 21 - 32 [facility] Comment on above: Performed By: #### T SPOT #### [facility] [address] [place] [address] Potassium [Moles/Vol] 4.5 mmol/L Normal 3.5 - 5.3 [facility] Comment on above: Performed By: #### T SPOT #### [facility] [address] [place] [address] Protein [Mass/Vol] 7.5 g/dL Normal 6.4 - 8.2 [facility] Comment on above: Performed By: #### T SPOT #### [facility] [address] [place] [address] Sodium [Moles/Vol] 140 mmol/L Normal 136 - 145 [facility] Comment on above: Performed By: #### T SPOT #### [facility] [address] [place] [address] Urea nitrogen [Mass/Vol] 24 mg/dL High 6 - 23 [facility] Comment on above: Performed By: #### T SPOT #### [facility] [address] [place] [address] Follow Up (Pulmonary Medicin e)on 11-22-2020 Follow Up (Pulmonary Medicine) Diagnoses/Problems Daily caffeine consumption Sarcoidosis (135) (D86.9) Mediastinal lymphadenopathy (785.6) (R59.0) Dyspnea on exertion (786.09) (R06.00) CLEM on CPAP (327.23,V46.8) (G47.33,Z99.89) Orders 6 Minute Walk Test; Status:Hold For - Scheduling; Requested for:[id number]; Perform:[facility]; Due:20Feb2021;Ordere d; For:ILD (interstitial lung disease); Ordered By:Carter Kruse; Calcium, Urine 24 Hour; Status:Active; Requested for:[id number]; Perform:[facility] Services - Lab To Draw (Non-Blood Test); Due:20Feb2021;Ordere d; For:ILD (interstitial lung disease); Ordered By:Carter Kruse; Complete Blood Count + Differential; Status:In Progress - Specimen/Data Collected; Done: [id number] Perform:[facility] Services - Lab To Draw (Blood Test); Due:20Feb2021;Ordere d; For:ILD (interstitial lung disease); Ordered By:Carter Kruse; Complete PFT w/o ABG; Status:Hold For - Scheduling; Requested for:22Nov2020; Perform:[facility]; Due:20Feb2021;Ordere d; For:ILD (interstitial lung disease); Ordered By:Carter Kruse; Comprehensive Metabolic Panel; Status:In Progress - Specimen/Data Collected; Done: 22Nov2020 Perform:[facility] Services - Lab To Draw (Blood Test); Due:20Feb2021;Ordere d; For:ILD (interstitial lung disease); Ordered By:Carter Kruse; CT Chest without Contrast; Status:Active; Requested for:[id number]; Perform:[facility];Ordered; For:ILD (interstitial lung disease); Ordered By:Carter Kruse; Patient taking Metformin or Derivatives? : No Radiologist to Determine Optimal Study : Y What are the patient's signs and symptoms? : dyspnea on exertion Echocardiogram; Status:Hold For - Scheduling; Requested for:22Nov2020; Perform:[facility] ([place]); Due:20Feb2021;Ordere d; For:ILD (interstitial lung disease); Ordered By:Carter Kruse; Electrocardiogram EKG; Status:Hold For - Scheduling; Requested for:22Nov2020; Perform:[facility] [place]; Due:20Feb2021;Ordere d; For:ILD (interstitial lung disease); Ordered By:Carter Kruse; HIV 1/2 ANTIGEN/ANTIBODY SCREEN WITH REFLEX TO CONFIRMATION; Status:In Progress - Specimen/Data Collected; Done: 22Nov2020 Perform:[facility] Services - Lab To Draw (Blood Test); Due:20Feb2021;Ordere d; For:ILD (interstitial lung disease); Ordered By:Carter Kruse; MISCELLANEOUS TEST; Status:In Progress - Specimen/Data Collected; Done: 22Nov2020 Perform:[facility] - Lab To Draw (Non-Blood Test); Order Comments:Beryllium lymphocyte proliferation test; Due:20Feb2021;Ordere d; For:ILD (interstitial lung disease); Ordered By:Carter Kruse; T-SPOT. TB; Status:In Progress - Specimen/Data Collected; Done: [id number] Perform:Lab Services - Lab To Draw (Blood Test); Due:20Feb2021;Ordere d; For:ILD (interstitial lung disease); Ordered By:Carter Kruse; Urinalysis; Status:In Progress - Specimen/Data Collected; Done: [id number] Perform:[facility] Services - Lab To Draw (Non-Blood Test); Due:20Feb2021;Ordere d; For:ILD (interstitial lung disease); Ordered By:Carter Kruse; Vitamin D 25-Hydroxy; Status:In Progress - Specimen/Data Collected; Done: 22Nov2020 Perform:[facility] Services - Lab To Draw (Blood Test); Due:20Feb2021;Ordere d; For:ILD (interstitial lung disease); Ordered By:Carter Kruse; Vitamin-D 1,25-Dihydroxy, Level; Status:In Progress - Specimen/Data Collected; Done: [id number] Perform:Lab Services - Lab To Draw (Blood Test); Due:20Feb2021;Ordere d; For:ILD (interstitial lung disease); Ordered By:Carter Kruse; Chief Complaint Visit For: Other Initial visit with provider to discuss Sarcoidosis. Referred by . Active Problems Dyspnea on exertion (786.09) (R06.00) Hilar lymphadenopathy (785.6) (R59.0) Mediastinal lymphadenopathy (785.6) (R59.0) Pre-op evaluation (V72.84) (Z01.818) Preop testing (V72.84) (Z01.818) Past Medical History History of hypertension (V12.59) (Z86.79) Surgical History History of Knee surgery History of Shoulder surgery History of Vertebral fusion Family History Family history of malignant neoplasm of skin (V16.8) (Z80.8) Social History Daily caffeine consumption Never a smoker Allergies No Known Drug Allergies Recorded By: Sun Berrios; 11/22/2020 1:18:00 PM Current Meds Medication NameInstruction Metoprolol Tartrate TABS Oxaprozin TABS predniSONE 20 MG Oral TabletTAKE 3 TABLET Daily Vitals Vital Signs Recorded: 22Nov2020 01:10PM Oghbgwqibhv58.8 F Heart Rate96 Arbuyvph545 Jllouduax37 Izrnhi195 lb 14.4 oz Tobacco Useb) No Fall Screeninga) No falls within the last year O2 Jtuxrxicja11, RA Pain Scale0 Signatures Electronically signed by : Carter Kruse MD; Nov 22 2020 5:33PM EST (Author) Normal Touchworks HIV 1/2 ANTIGEN/ANTIBODY SCR EEN WITH REFLEX TO CONFIRMATIONon 11-22-2020 HIV 1/2 AG/AB SCREEN Non-Reactive Normal NONREACTIVE [facility] Comment on above: Result Comment: HIV Ag/Ab screen is performed using the [employer] HIV Ag/Ab Combo assay which detects the presence of HIV p24 antigen as well as antibodies to HIV-1 (Group M and O) and HIV-2. . No laboratory evidence of HIV infection. If acute HIV infection is suspected, consider testing for HIV RNA by PCR (viral load). Performed By: #### T SPOT #### [employer] [address] [place] [id number] Lab Specimen Source Normal [facility] Comment on above: Performed By: #### T SPOT #### [employer] [address] [employer] [place] [id number] Initial Visit (Pulmonary Med icine)on 11-22-2020 Initial Visit (Pulmonary Medicine) Diagnoses/Problems Daily caffeine consumption Sarcoidosis (135) (D86.9) Mediastinal lymphadenopathy (785.6) (R59.0) Dyspnea on exertion (786.09) (R06.00) CLEM on CPAP (327.23,V46.8) (G47.33,Z99.89) Orders 6 Minute Walk Test; Status:Hold For - Scheduling; Requested for:[id number]; Perform:[facility]; Due:20Feb2021;Ordere d; For:ILD (interstitial lung disease); Ordered By:Carter Kruse; Calcium, Urine 24 Hour; Status:Active; Requested for:[id number]; Perform:[facility] Services - Lab To Draw (Non-Blood Test); Due:20Feb2021;Ordere d; For:ILD (interstitial lung disease); Ordered By:Carter Kruse; Complete Blood Count + Differential; Status:In Progress - Specimen/Data Collected; Done: 22Nov2020 Perform:[facility] Services - Lab To Draw (Blood Test); Due:20Feb2021;Ordere d; For:ILD (interstitial lung disease); Ordered By:Carter Kruse; Complete PFT w/o ABG; Status:Hold For - Scheduling; Requested for:22Nov2020; Perform:[facility]; Due:20Feb2021;Ordere d; For:ILD (interstitial lung disease); Ordered By:Carter Kruse; Comprehensive Metabolic Panel; Status:In Progress - Specimen/Data Collected; Done: 22Nov2020 Perform:Lab Services - Lab To Draw (Blood Test); Due:20Feb2021;Ordere d; For:ILD (interstitial lung disease); Ordered By:Carter Kruse; CT Chest without Contrast; Status:Active; Requested for:[id number]; Perform:[facility];Ordered; For:ILD (interstitial lung disease); Ordered By:Carter Kruse; Patient taking Metformin or Derivatives? : No Radiologist to Determine Optimal Study : Y What are the patient's signs and symptoms? : dyspnea on exertion Echocardiogram; Status:Hold For - Scheduling; Requested for:22Nov2020; Perform:[facility] ([place]); Due:20Feb2021;Ordere d; For:ILD (interstitial lung disease); Ordered By:Carter Kruse; Electrocardiogram EKG; Status:Hold For - Scheduling; Requested for:22Nov2020; Perform:[facility] Dina [place] 1800; Due:20Feb2021;Ordere d; For:ILD (interstitial lung disease); Ordered By:Carter Kruse; HIV 1/2 ANTIGEN/ANTIBODY SCREEN WITH REFLEX TO CONFIRMATION; Status:In Progress - Specimen/Data Collected; Done: 22Nov2020 Perform:[facility] Services - Lab To Draw (Blood Test); Due:20Feb2021;Ordere d; For:ILD (interstitial lung disease); Ordered By:Carter Kruse; MISCELLANEOUS TEST; Status:In Progress - Specimen/Data Collected; Done: 22Nov2020 Perform:[facility] - Lab To Draw (Non-Blood Test); Order Comments:Beryllium lymphocyte proliferation test; Due:20Feb2021;Ordere d; For:ILD (interstitial lung disease); Ordered By:Carter Kruse; T-SPOT. TB; Status:In Progress - Specimen/Data Collected; Done: [id number] Perform:Lab Services - Lab To Draw (Blood Test); Due:20Feb2021;Ordere d; For:ILD (interstitial lung disease); Ordered By:Carter Kruse; Urinalysis; Status:In Progress - Specimen/Data Collected; Done: [id number] Perform:Lab Services - Lab To Draw (Non-Blood Test); Due:20Feb2021;Ordere d; For:ILD (interstitial lung disease); Ordered By:Carter Kruse; Vitamin D 25-Hydroxy; Status:In Progress - Specimen/Data Collected; Done: [id number] Perform:Lab Services - Lab To Draw (Blood Test); Due:20Feb2021;Ordere d; For:ILD (interstitial lung disease); Ordered By:Carter Kruse; Vitamin-D 1,25-Dihydroxy, Level; Status:In Progress - Specimen/Data Collected; Done: [id number] Perform:Lab Services - Lab To Draw (Blood Test); Due:20Feb2021;Ordere d; For:ILD (interstitial lung disease); Ordered By:Carter Kruse; Patient Discussion/Summary Mr. Wilson, it was a pleasure seeing you in clinic today. We discussed the following: -I would like you to repeat your CT scan, echocardiogram, breathing test and walking test, and a tracing of your heart. -you will stop by the lab for a blood draw. -you can start to taper steroids as follows: 40mg for 2 weeks, 30mg for 2 weeks, 20mg until you see me Will see you back in clinic in 4-6 weeks or sooner if needed. Provider Impressions Mr. Wilson is a 50 y.o man, never a smoker, being evaluated for dyspnea on exertion and sarcoidosis. #Dyspnea on exertion: -Although granulomas and mediastinal lymph nodes, there is no parenchymal involvement of granulomatous disease to explain dyspnea on exertion. Would consider alternative diagnosis, in particular diastolic heart failure and pulmonary hypertension. -We will repeat high-resolution CT scan to better evaluate lung parenchyma. Also repeat echocardiogram and EKG tracing. -We will obtain full PFTs and 6-minute walk test. # Lung sarcoidosis: -Biopsy with noncaseating granulomas of lymph nodes in the chest could be consistent with sarcoidosis, however would need to rule out chronic beryllium disease given his beryllium exposure. -Sent serum beryllium lymphocyte proliferation test. #On prednisone therapy: -Did not notice any improvement in his dyspnea. Is experiencing a lot of weight gain and mood changes on the medication. -We will sta (more content not included)... Normal [facility] Tobacco Screening.on 021 Fall risk assessment a) No falls within the last year [facility] [employer] [facility] Work Phone: Tobacco use status [facility] b) No [facility] [employer] [facility] Sleep Work Phone: URINALYSISon 11-22-2020 Appearance (U) CLEAR Normal CLEAR [facility] Comment on above: Performed By: #### U A #### [facility] [address] [place] [address] Bilirubin Ql (U) Negative Normal NEGATIVE [facility] Comment on above: Performed By: #### U A #### [facility] [address] [place] [address] Color (U) YELLOW Normal STRAW,YELLOW [facility] Comment on above: Performed By: #### U A #### [facility] [address] [place] [address] Glucose Ql (U) 150 (1+) Abnormal NEGATIVE [facility] Comment on above: Performed By: #### U A #### [facility] [address] [place] [address] Hemoglobin Ql (U) Negative Normal NEGATIVE [facility] Comment on above: Performed By: #### U A #### [facility] [address] [place] [address] Ketones Ql (U) Negative Normal NEGATIVE [facility] Comment on above: Performed By: #### U A #### [facility] [address] [place] [address] Leukocyte esterase Test strip Ql (U) Negative Normal NEGATIVE [facility] Comment on above: Performed By: #### U A #### [facility] [address] [place] [address] Nitrite Ql (U) Negative Normal NEGATIVE [facility] Comment on above: Performed By: #### U A #### [facility] [address] [place] [address] pH (U) 5.0 [pH] Normal 5.0 - 8.0 [facility] Comment on above: Performed By: #### U A #### [facility] [address] [place] [address] Protein Ql (U) Negative Normal NEGATIVE [facility] Comment on above: Performed By: #### U A #### [facility] [address] [place] [address] Specific gravity (U) [Rel density] 1.021 Normal 1.005 - 1.035 [facility] Comment on above: Performed By: #### U A #### [facility] [address] [place] [address] Urobilinogen (U) [Mass/Vol] mg/dL Normal 0.0 - 1.9 [facility] Comment on above: Performed By: #### U A #### [facility] [address] [place] [address] VITAMIN D, 25-HYDROXYon 11-09 VITAMIN D, 25-HYDROXY 23 ng/mL Abnormal [facility] Comment on above: Result Comment: . DEFICIENCY: < 20 NG/ML INSUFFICIENCY: 20-29 NG/ML SUFFICIENCY: 30-100 NG/ML THIS ASSAY ACCURATELY QUANTIFIES THE SUM OF VITAMIN D3, 25-HYDROXY AND VIT D2,25-HYDROXY. Performed By: #### T SPOT #### [employer] [address] [place] [address] MISCELLANEOUS TEST-SOARIANon 07-31-2020 MISCELLANEOUS SEE BELOW Normal [facility] Comment on above: Result Comment: TEST RESULT UNITS Lymphocyte Subset Panel 4 - T-Cell Subsets Percent and Ratio, Bronchoalveolar Lavage Source BAL % CD3 - BAL 89 % LYMBAL test performed at client's request on a suboptimal submission, specimen was >48 hours old. Results may be adversely affected. Please interpret the results of the Lymphocyte Subset Panel 4 - T-Cell Subsets Percent and Ratio, Bronchoalveolar Lavage with caution. % CD4 - BAL 72 % % CD8 - BAL 13 % CD4:CD8 Ratio - BAL 5.54 ratio INTERPRETIVE INFORMATION: Lymphocyte Subset 4, Pct. and Ratio, BAL A CD4/CD8 ratio greater than 3.5 is suggestive of sarcoidosis. If the CD4/CD8 ratio is greater than 5.0 and clinical and radiographic findings are compatible with sarcoidosis, some institutions accept a diagnosis of sarcoidosis even with a negative biopsy. In extrinsic allergic alveolitis (EAA), the CD4/CD8 ratio is decreased due to a relative increase in the CD8 positive T-cells. This test was developed and its performance characteristics determined by [employer]. It has not been cleared or approved by the US Food and Drug Administration. This test was performed in a CLIA certified laboratory and is intended for clinical purposes. Test results should be interpreted with caution. Assay was performed at client's request on a sub-optimal specimen. REFERRED TO [facility] [employer] [address] [place] [address] Performed By: #### M ISCS #### GENERAL SENDOUT CD4 AND CD8 (T4T8 SCREEN)on 07-25-2020 CD4/CD8 RATIO Canceled Normal [facility] Comment on above: Order Comment: TEST CD4 AND CD8 (T4T8 SCREEN) WAS CANCELLED, 07/25/2020 07:57 BAL specimensto be sent to [facility] for testing per Dr. Stevenson.. Performed By: #### T SPOT #### [employer] [address] [place] [address] CD45 % Canceled Normal [facility] Comment on above: Order Comment: TEST CD4 AND CD8 (T4T8 SCREEN) WAS CANCELLED, 07/25/2020 07:57 BAL specimensto be sent to [facility] for testing per Dr. Stevenson.. Performed By: #### T SPOT #### [facility] [address] [place] [address] MARKER INTERPRETATION Canceled Normal [facility] Comment on above: Order Comment: TEST CD4 AND CD8 (T4T8 SCREEN) WAS CANCELLED, 07/25/2020 07:57 BAL specimensto be sent to [facility] for testing per Dr. Stevenson.. Performed By: #### T SPOT #### [employer] [address] [place] [address] METHOD Canceled Normal [facility] Comment on above: Order Comment: TEST CD4 AND CD8 (T4T8 SCREEN) WAS CANCELLED, 07/25/2020 07:57 BAL specimensto be sent to [facility] for testing per Dr. Stevenson.. Result Comment: This test is a multicolor, whole blood lysis assay. It was developed and its performance characteristics determined by the Department of Pathology, [facility], and has not been cleared or approved by the U.S. Food and Drug Administration. The laboratory is regulated under CLIA as qualified to perform high complexity testing. This test is used for clinical purposes. It should not be regarded as investigational or for research. Performed By: #### T SPOT #### [facility] [address] [place] [address] SITE Canceled Normal [facility] Comment on above: Order Comment: TEST CD4 AND CD8 (T4T8 SCREEN) WAS CANCELLED, 07/25/2020 07:57 BAL specimensto be sent to [facility] for testing per Dr. Stevenson.. Performed By: #### T SPOT #### [employer] [address] [place] [address] MISCELLANEOUS TEST-SOARIANon 07-25-2020 NAME OF SEND OUT TEST Lymphocyte Subset Panel Normal [facility] Comment on above: Result Comment: BAL Specimen Performed By: #### M ISCS #### GENERAL SENDOUT AFB CULTURE/SM, MISCon 07-24 AFB CULTURE/SM, MISC PATIENT: SAHIL WILSON LOCATION: [facility]#: [id number] : 74 AGE: SEX: M ORDERED BY: STUART MIGUEL SOURCE: BRONCHIAL COLLECTED: 07/24/20 11:00 ANTIBIOTICS AT [facility].: RECEIVED : 07/24/20 14:23 SITE: BAL RML R E S U L T S AFB SMEAR FINAL 07/25/20 13:44 ACID FAST SMEAR - NEGATIVE. AFB CULTURE/SM, MISC FINAL 09/13/20 14:08 NO MYCOBACTERIA ISOLATED. Normal [facility] Comment on above: Performed By: #### T SPOT #### [employer] [address] [place] [address] CBC AND DIFFERENTIALon 07-24 % AUTOMATED IMMATURE GRAN Canceled Normal [facility] Comment on above: Order Comment: TEST CBC AND DIFFERENTIAL WAS CANCELLED, 07/24/2020 13:45 SAMPLE UNSUITABLE FOR TESTING.. Result Comment: Ambika ture Granulocyte Count (IG) includes promyelocytes, myelocytes and metamyelocytes but does not include bands. Percent differential counts (%) should be interpreted in the context of the absolute cell counts (cells/L). Performed By: #### C BCDF #### [facility] [address] [place] [address] % BASOPHIL Canceled Normal [facility] Comment on above: Order Comment: TEST CBC AND DIFFERENTIAL WAS CANCELLED, 07/24/2020 13:45 SAMPLE UNSUITABLE FOR TESTING.. Performed By: #### C BCDF #### [facility] [address] [place] [address] % EOSINOPHIL Canceled Normal [facility] Comment on above: Order Comment: TEST CBC AND DIFFERENTIAL WAS CANCELLED, 07/24/2020 13:45 SAMPLE UNSUITABLE FOR TESTING.. Performed By: #### C BCDF #### [facility] [address] [place] [address] % LYMPHOCYTE Canceled Normal [facility] Comment on above: Order Comment: TEST CBC AND DIFFERENTIAL WAS CANCELLED, 07/24/2020 13:45 SAMPLE UNSUITABLE FOR TESTING.. Performed By: #### C BCDF #### [facility] [address] [place] [address] % MONOCYTE Canceled Normal [facility] Comment on above: Order Comment: TEST CBC AND DIFFERENTIAL WAS CANCELLED, 07/24/2020 13:45 SAMPLE UNSUITABLE FOR TESTING.. Performed By: #### C BCDF #### [facility] [address] [place] [address] % NEUTROPHIL Canceled Normal [facility] Comment on above: Order Comment: TEST CBC AND DIFFERENTIAL WAS CANCELLED, 07/24/2020 13:45 SAMPLE UNSUITABLE FOR TESTING.. Performed By: #### C BCDF #### [facility] [address] [place] [address] BASOPHIL Canceled Normal [facility] Comment on above: Order Comment: TEST CBC AND DIFFERENTIAL WAS CANCELLED, 07/24/2020 13:45 SAMPLE UNSUITABLE FOR TESTING.. Performed By: #### C BCDF #### [facility] [address] [place] [address] DIFFERENTIAL Canceled Normal [facility] Comment on above: Order Comment: TEST CBC AND DIFFERENTIAL WAS CANCELLED, 07/24/2020 13:45 SAMPLE UNSUITABLE FOR TESTING.. Performed By: #### C BCDF #### [facility] [address] [place] [address] EOSINOPHIL Canceled Normal [facility] Comment on above: Order Comment: TEST CBC AND DIFFERENTIAL WAS CANCELLED, 07/24/2020 13:45 SAMPLE UNSUITABLE FOR TESTING.. Performed By: #### C BCDF #### [place] [address] [place] [address] HCT Canceled Normal [facility] Comment on above: Order Comment: TEST CBC AND DIFFERENTIAL WAS CANCELLED, 07/24/2020 13:45 SAMPLE UNSUITABLE FOR TESTING.. Performed By: #### C BCDF #### [facility] [address] [place] [address] HGB Canceled Normal [facility] Comment on above: Order Comment: TEST CBC AND DIFFERENTIAL WAS CANCELLED, 07/24/2020 13:45 SAMPLE UNSUITABLE FOR TESTING.. Performed By: #### C BCDF #### [facility] [address] [place] [address] LYMPHOCYTE Canceled Normal [facility] Comment on above: Order Comment: TEST CBC AND DIFFERENTIAL WAS CANCELLED, 07/24/2020 13:45 SAMPLE UNSUITABLE FOR TESTING.. Performed By: #### C BCDF #### [facility] [address] [place] [address] MCHC Canceled Normal [facility] Comment on above: Order Comment: TEST CBC AND DIFFERENTIAL WAS CANCELLED, 07/24/2020 13:45 SAMPLE UNSUITABLE FOR TESTING.. Performed By: #### C BCDF #### [place] [address] [place] [address] MCV Canceled Normal [facility] Comment on above: Order Comment: TEST CBC AND DIFFERENTIAL WAS CANCELLED, 07/24/2020 13:45 SAMPLE UNSUITABLE FOR TESTING.. Performed By: #### C BCDF #### [facility] [address] [place] [address] MONOCYTE Canceled Normal [facility] Comment on above: Order Comment: TEST CBC AND DIFFERENTIAL WAS CANCELLED, 07/24/2020 13:45 SAMPLE UNSUITABLE FOR TESTING.. Performed By: #### C BCDF #### [place] [address] [place] [address] NEUTROPHIL Canceled Normal [facility] Comment on above: Order Comment: TEST CBC AND DIFFERENTIAL WAS CANCELLED, 07/24/2020 13:45 SAMPLE UNSUITABLE FOR TESTING.. Performed By: #### C BCDF #### [place] [address] [place] [address] NUCLEATED RBC Canceled Normal [facility] Comment on above: Order Comment: TEST CBC AND DIFFERENTIAL WAS CANCELLED, 07/24/2020 13:45 SAMPLE UNSUITABLE FOR TESTING.. Performed By: #### C BCDF #### [place] [address] [place] [address] PLT Canceled Normal [facility] Comment on above: Order Comment: TEST CBC AND DIFFERENTIAL WAS CANCELLED, 07/24/2020 13:45 SAMPLE UNSUITABLE FOR TESTING.. Performed By: #### C BCDF #### [facility] [address] [place] [address] RBC Canceled Normal [facility] Comment on above: Order Comment: TEST CBC AND DIFFERENTIAL WAS CANCELLED, 07/24/2020 13:45 SAMPLE UNSUITABLE FOR TESTING.. Performed By: #### C BCDF #### [facility] [address] [place] [address] RDW-CV Canceled Normal [facility] Comment on above: Order Comment: TEST CBC AND DIFFERENTIAL WAS CANCELLED, 07/24/2020 13:45 SAMPLE UNSUITABLE FOR TESTING.. Performed By: #### C BCDF #### [facility] [address] [place] [address] WBC Canceled Normal [facility] Comment on above: Order Comment: TEST CBC AND DIFFERENTIAL WAS CANCELLED, 07/24/2020 13:45 SAMPLE UNSUITABLE FOR TESTING.. Performed By: #### C BCDF #### [facility] [address] [place] [address] CD4 AND CD8 (T4T8 SCREEN)on 07-24-2020 Lab Specimen Source Normal [facility] Comment on above: Order Comment: TEST CD4 AND CD8 (T4T8 SCREEN) WAS CANCELLED, 07/25/2020 07:57 BAL specimensto be sent to [facility] for testing per Dr. Stevenson.. Performed By: #### T SPOT #### [facility] [address] [place] [address] CELL COUNT AND DIFF, FLUIDon 07-24-2020 CELLS COUNTED 100 Normal [facility] Comment on above: Performed By: #### T SPOT #### [facility] [address] [place] [address] Clarity (U) Hazy Normal CLEAR [facility] Comment on above: Performed By: #### T SPOT #### [facility] [address] [place] [address] Color (U) Colorless Normal YELLOW [facility] Comment on above: Performed By: #### T SPOT #### [facility] [address] [place] [address] Lymphocytes/100 WBC (Bld) 32 % Normal [facility] Comment on above: Performed By: #### T SPOT #### [facility] [address] [place] [address] MONONUCLEAR CELLS 53 % Normal [facility] Comment on above: Performed By: #### T SPOT #### [facility] [address] [place] [address] Neutrophils/100 WBC (Bld) 15 % Normal [facility] Comment on above: Performed By: #### T SPOT #### [facility] [address] [place] [address] RBC (Bld) [#/Vol] 0.001 10*6/uL Normal [facility] Comment on above: Performed By: #### T SPOT #### [facility] [address] [place] [address] WBC (Bld) [#/Vol] 0.221 10*3/uL Normal [facility] Comment on above: Performed By: #### T SPOT #### [facility] [address] [place] [address] Lab Specimen Source Peritoneal fluid /ascites Normal [facility] Comment on above: Performed By: #### T SPOT #### [facility] [address] [place] [address] FUNGAL CULTURE/SM, MISCon FUNGAL CULTURE/SM, MISC PATIENT: JERRY WILSON LOCATION: [facility]#: [id number] : 74 AGE: SEX: M ORDERED BY: STUART MIGUEL SOURCE: BRONCHIAL COLLECTED: 07/24/20 11:00 ANTIBIOTICS AT [facility].: RECEIVED : 07/24/20 14:22 SITE: BAL RML R E S U L T S FUNGAL SMEAR FINAL 07/25/20 13:58 FLUORESCENT FUNGAL STAIN: NEGATIVE FUNGAL CULTURE/SM, MISC FINAL 08/14/20 11:30 NO FUNGI ISOLATED. Normal [facility] Comment on above: Performed By: #### F [employer] #### [facility] [address] [place] [address] RESPIRATORY CULT./SM,LOWERon 07-24-2020 RESPIRATORY CULT./SM,LOWER PATIENT: JERRY WILSON LOCATION: [facility]#: [id number] : 74 AGE: SEX: M ORDERED BY: STUART MIGUEL SOURCE: BRONCHIAL COLLECTED: 07/24/20 11:00 ANTIBIOTICS AT [facility].: RECEIVED : 07/24/20 14:18 SITE: BAL RML R E S U L T S GRAM STAIN FINAL 07/24/20 15:47 1+ GRANULOCYTES. NO ORGANISMS SEEN. RESPIRATORY CULT./SM,LOWER FINAL 07/28/20 12:21 NO GROWTH Normal [facility] Comment on above: Performed By: #### T SPOT #### [facility] [address] Cytologyon 07-24-[address] [facility] Cytology ADDENDUM Patient Name JERRY WILSON Date of Procedure: 07/24/2020 Date Reported: 07/27/2020 Date Received: 07/24/2020 Date of / Sex 1970 (Age: 49) / M Race: OTHER Submitting Physician: STUART MIGUEL MD Attending Physician: HERBER ADAN DO Addendum Present Other External # FINAL CYTOLOGICAL INTERPRETATION A. FINE NEEDLE ASPIRATION LYMPH NODE-11RI, CYTOLOGY AND CELL BLOCK: --NON-DIAGNOSTIC SPECIMEN. B. FINE NEEDLE ASPIRATION LYMPH NODE-7, CYTOLOGY AND CELL BLOCK: --CELLULAR FINDINGS CONSISTENT WITH NON-NECROTIZING GRANULOMATOUS INFLAMMATION. SEE NOTE. Note: Lesional material is present only in the cell block. Special stains for acid-fast bacilli and fungal organisms have been ordered, and will be reported in an addendum. C. FINE NEEDLE ASPIRATION LYMPH NODE-4R, CYTOLOGY AND CELL BLOCK: --CELLULAR FINDINGS CONSISTENT WITH NON-NECROTIZING GRANULOMATOUS INFLAMMATION. SEE NOTE. Note: Special stains for acid-fast bacilli and fungal organisms are negative. D. BRONCHO-ALVEOLAR LAVAGE OF RIGHT MIDDLE LOBE: --NO MALIGNANT CELLS IDENTIFIED. Slide(s) initially screened by a [employer] Professor at [place] [address] Electronically Signed Out By Alex Bloom MD By the signature on this report, the individual or group listed as making the Final Interpretation/Diagn osis certifies that they have reviewed this case. Slide(s) initially screened by a [employer] Professor at [facility] Rapid Evaluation Fine Needle Aspiration Immediate Read Result: PASS A: Nondiagnostic PASS B: Nondiagnostic PASS C: Lymphoid. No malignant cells identified. Cellular findings suggestive of granulomatous inflammation Pathologist: Alex Bloom M.D. Date: 07/25/2020 Clinical History LYMPHADENOPATHY RULE OUT SARCOIDOSIS Source of Specimen A: FINE NEEDLE ASPIRATION LYMPH NODE-11RI B: FINE NEEDLE ASPIRATION LYMPH NODE-7 C: FINE NEEDLE ASPIRATION LYMPH NODE-4R D: BRONCHO-ALVEOLAR LAVAGE OF RIGHT MIDDLE LOBE Specimen Submitted as: A: FINE NEEDLE ASPIRATION LYMPH NODE-11RI Diff-Quik stain Non-Pallet Stone Positioner, Diff-Quik stain Non-Pallet Stone Positioner, Pap stain Non-Pallet Stone Positioner, Pap stain Non-Pallet Stone Positioner, CELL BLOCK, H AND E, Initial B: FINE NEEDLE ASPIRATION LYMPH NODE-7 Diff-Quik stain Non-Pallet Stone Positioner, Diff-Quik stain Non-Pallet Stone Positioner, Pap stain Non-Pallet Stone Positioner, Pap stain Non-Pallet Stone Positioner, CELL BLOCK, H AND E, Initial, H GOMORI'S METHENAMINE SILVER, H ACID FAST BACILLI, ZIEHL-NEELSON C: FINE NEEDLE ASPIRATION LYMPH NODE-4R Diff-Quik stain Non-Pallet Stone Positioner, Pap stain Non-Pallet Stone Positioner, CELL BLOCK, H AND E, Initial, H GOMORI'S METHENAMINE SILVER, H ACID FAST BACILLI, ZIEHL-NEELSON D: BRONCHO-ALVEOLAR LAVAGE OF RIGHT MIDDLE LOBE Pap non-mixing machine tender cork rod ThinPrep slide Gross Description A. FINE NEEDLE ASPIRATION LYMPH NODE-11RI: 2 AIR DRIED DIFF QUICK SLIDES, 2 SPRAY FIXED UNSTAINED SLIDES, AND 30cc PALE PINK NEEDLE RINSE WITH FEW PARTICLES IN CYTOLYT (CELL BLOCK ONLY) B. FINE NEEDLE ASPIRATION LYMPH NODE-7: 2 AIR DRIED DIFF QUICK SLIDES, 2 SPRAY FIXED UNSTAINED SLIDES, AND 30cc HAZY RED NEEDLE RINSE WITH PARTICLES IN CYTOLYT (CELL BLOCK ONLY) C. FINE NEEDLE ASPIRATION LYMPH NODE-4R: 1 AIR DRIED DIFF QUICK SLIDE, 1 SPRAY FIXED UNSTAINED SLIDE, AND 30cc CLEAR RED NEEDLE RINSE WITH PARTICLES IN CYTOLYT (CELL BLOCK ONLY) D. BRONCHO-ALVEOLAR LAVAGE OF RIGHT MIDDLE LOBE: 25cc HAZY COLORLESS MUCOID FLUID IN JAR Addendum/Procedures: Addendum Date Ordered: 07/31/2020 Status: Signed Out Date Complete: 07/31/2020 Date Reported: 07/31/2020 Addendum Diagnosis B. Special stains for acid-fast bacilli and fungal organisms are negative. Electronically Signed Out By Alex Bloom MD/DAY By the signature on this report, the individual or group listed as making the Final Interpretation/Diagn osis certifies that they have reviewed this case. The assays/tests were performed with appropriate positive and negative controls which stained appropriately. [facility] Department of Pathology [address] [place] [address] Normal [facility] Comment on above: Performed By: #### C #### [facility] Cytology [address] [place] [address] Surgical Pathology Depar tmenton 07-24-[address] [facility] Surgical Pathology Department Name JERRY WILSON Pathologist: DANIELLE AMAYA JR, MD, PhD. Date of Procedure: 07/24/2020 Date Received: 07/24/2020 Date Reported 07/26/2020 Submitting Physician: STUART MIGUEL MD Location: Copy To/Referring/Attendi ng: HERBER ADAN, DO Other External # FINAL DIAGNOSIS A. LYMPH NODE, LEVEL 7, CORE BIOPSY: -- NON-NECROTIZING GRANULOMAS, PROMINENT HYALINIZATION AND FOCAL FIBRINOUS DEBRIS, SEE NOTE. NOTE: The specimen is scant. Special stains for AFB and GMS are negative for mycobacterial and fungal organisms respectively. The findings are compatible with sarcoidosis in the appropriate clinical and radiologic context. An infectious etiology or other granulomatous processes cannot be completely excluded. Clinical correlation and correlation with microbiologic studies suggested. REPRODUCTION ORDER PROCESSOR: Dr. Elza Vazquez, thoracic pathologist, [facility] IMMUNOHISTOCHEMISTRY AND IN SITU HYBRIDIZATION: CD3 and CD20 highlight T and B cells respectively, T cells more abundant than B cells. [place] and Lambda in situ hybridization highlight few polytypic plasma cells. Electronically Signed Out By DANIELLE AMAYA JR, MD, PhD./STACY By the signature on this report, the individual or group listed as making the Final Interpretation/Diagn osis certifies that they have reviewed this case. Clinical History: Lymphadenopathy r/o sarcoidosis Specimens Submitted As: A: CORE BX LYMPH NODE 7 Gross Description: Received in formalin, labeled with the patient's name and hospital number and core BX lymph node 7 , are multiple minute fragments of parker-white soft tissue aggregating to 0.6 x 0.1 x 0.1 cm. A specimen, identified as bronchial lavage, was submitted directly to flow cytometry. The formalin portion is submitted in toto in one cassette. SBS ssn/07/24/2020 The assays/tests were performed with appropriate positive and negative controls which stained appropriately.One or more of the reagents used to perform assays on this specimen MAY have contained components considered to be Laboratory Developed Tests (LDT). LDT's have not been cleared or approved by the U.S. Food and Drug Administration. These assays/tests were developed and their performance characteristics determined by the Department of Pathology Immunohistochemistry Labs at [facility]. The FDA does not require this test to go through premarket FDA review. This test is used for clinical purposes. It should not be regarded as investigational or for research. This laboratory is certified under the Clinical Laboratory Improvement Amendments (CLIA) as qualified to perform high complexity clinical laboratory testing. The assays/tests were performed with appropriate positive and negative controls which stained appropriately. [facility] Department of Pathology [id number] [place] [address] Normal [facility] Comment on above: Performed By: #### [facility] #### [facility] Surgical Pathology Department [address] [place], [place] [id number] Consult (Pulmonary Medicine) on 07-19-2020 Consult (Pulmonary Medicine) Diagnoses/Problems Never a smoker Family history of malignant neoplasm of skin (V16.8) (Z80.8) : Uncle Mediastinal lymphadenopathy (785.6) (R59.0) Hilar lymphadenopathy (785.6) (R59.0) Dyspnea on exertion (786.09) (R06.00) Pre-op evaluation (V72.84) (Z01.818) Orders Tobacco Use Screening; Status:Complete; Done: 19Jul2020 Perform:Not Applicable;Ordered; For:SocHx: Never a smoker; Ordered By:Stuart Miguel; Patient Discussion/Summary 1. Mediastinal / hilar lymphadenopathy - radiographic appearance is suggestive of sarcoidosis, the importance of tissue sampling was discussed with the patient, and he has agreed to proceed with bronchoscopic biopsy. On pre-operative evaluation, there is no contraindication to bronchoscopy under general anesthesia. The risks, benefits, and alternatives of the procedure were discussed with Mr. Wilson -EBUS bronchoscopy under general anesthesia -Pre-procedural labs By signing my name below, I, Elizabeth Chappell, attest that this documentation has been prepared under the direction and in the presence of Dr Troy Miguel. All medical record entries made by the Elizabeth were at my direction and personally dictated by me. I have reviewed the chart and agree that the record accurately reflects my personal performance of the history, physical exam, discussion and plan. Chief Complaint A telephone visit (audio only) between the patient (at the originating site) and the provider (at the distant site) was utilized to provide this telehealth service. Verbal consent was requested and obtained from JERRY WILSON on this date, 07/19/2020 02:00 PM , for a telehealth visit. JERRY WILSON is here for an outpatient consultation. Reason for Visit: Mediastinal / hilar lymphadenopathy. Appointment requested by: Dr. Adan. History of Present IllnessDue to COVID-19 precautions, this encounter was conducted as a telehealth visit. Jul 19, 2020 Mr. WILSON is a 49 year old male non- smoker who presents today for evaluation HPI: Patient states that he can't breathe beginning about one year ago, around the same time as COVID-19 had started. Patient reports he went to a , and while walking there, he developed shortness of breath which hurt all the way down to his groin. States he also experiences shortness of breath and dyspnea on exertion with minimal activity like walking to his car or climbing the stairs. He notes some associated hoarseness in his voice, swelling in his legs/feet and mild wheezing. He is also complaining that he has developed bowing in his legs since last year, but has never had this problem before. Denies any chest pain, fevers, heart burn, trouble swelling, He has been tested for COVID-19 twice but has been negative both times. denies fevers, chills, or nights sweats denies shortness of breath at rest, or significant dyspnea on exertion, mMRC Dyspnea Score = 2 +cough +occasional wheezing denies hemoptysis, or stridor denies chest pain, orthopnea, or lower extremity edema denies nausea, vomiting, abdominal pain, odynophagia, dysphagia, heartburn, anorexia, or weight loss denies sinus congestion, post-nasal drip, epistaxis, or hoarseness of voice Inhalers / Nebulized medications / Oxygen: ProAir HFA Social History: Tobacco: Never smoker Occupation: [employer], dust exposure Imaging history: (I have personally reviewed the imaging below) CT chest 05/04/2020 -> enlarged hilar / mediastinal lymph nodes, normal lung parenchyma PFTs: 05/04/2020 Spirometry: FVC = 3.91 L (76% predicted) FEV1 = 2.90 L (72% predicted) FEV1/FVC = 74% DLCO: 97% predicted Lung volumes: TLC = 93%, RV = 135% 6MWT: None on record Echo: 05/04/2020 -> EF 57%, mild LVH Family History: +skin cancer No family history of lung diseases Review of Systems Constitutional: as noted in HPI, no chills, not feeling poorly, not feeling tired, no fever and no night sweats. Eyes: no blurred vision, no dryness of the eyes, no eyesight problems and no eye pain. ENT: no earache, no discharge from the ear(s), the ears do not feel full, no hearing loss, no tinnitus, no vertigo, no nasal passage blockage, no nasal congestion, no nasal discharge, no nosebleeds, no postnasal drip, no rhinorrhea, no sinus pressure, no bleeding gums, no hoarseness, no xerostomia, no oral lesions and no sore throat. Neck: no mass(es) and no swelling. Cardiovascular: as noted in HPI, no chest pain, no tachycardia, no bradycardia, no intermittent leg claudication, no lower extremity edema, no orthopnea, no palpitations and no syncope. Respiratory: as noted in HPI. Gastrointestinal: as noted in HPI, no abdominal pain, no bloating, no nausea and no vomiting. Musculoskeletal: no arthralgias, no back pain, no history of falls, no localized joint pain, no joint swelling, no limb pain, no limb swelling, no myalgias and no neck pain. Integumentary: no rashes. Neurological: no confusion, no convulsions, no difficulty walking, no diplopia (more content not included)... Normal [facility] CBC With Platelet and Differ lion 05-07-2018 Basophils Auto #/vol (Bld) 0.0 10*3/uL Normal 0.0-0.2 [facility] Basophils/100 WBC Auto (Bld) 0.5 % Normal [facility] Eosinophils Auto #/vol (Bld) 0.1 10*3/uL Normal 0.0-0.7 [facility] Eosinophils/100 WBC Auto (Bld) 2.6 % Normal [facility] Erythrocyte distribution width Auto Ratio (RBC) 12.6 % Normal 11.5-14.5 [facility] Hematocrit Auto Volume Fraction (Bld) 38.2 % Low 42.0-52.0 [facility] Hemoglobin mass conc (Bld) 13.1 g/dL Low 14.0-18.0 [facility] Lymphocytes Auto #/vol (Bld) 0.8 10*3/uL Low 1.0-4.8 [facility] Lymphocytes/100 WBC Auto (Bld) 18.0 % Normal [facility] MCH Auto Entitic mass (RBC) 30.7 pg Normal 27.0-31.3 [facility] MCHC Auto mass conc (RBC) 34.4 % Normal 33.0-37.0 [facility] MCV Auto Entitic volume (RBC) 89.3 fL Normal 80.0-100.0 [facility] Monocytes Auto #/vol (Bld) 0.7 10*3/uL Normal 0.2-0.8 [facility] Monocytes/100 WBC Auto (Bld) 14.3 % Normal [facility] Neutrophils Auto #/vol (Bld) 3.0 10*3/uL Normal 1.4-6.5 [facility] Neutrophils/100 WBC Auto (Bld) 64.6 % Normal [facility] Platelets Auto #/vol (Bld) 233 10*3/uL Normal 130-400 [facility] RBC Auto #/vol (Bld) 4.28 10*6/uL Low 4.70-6.10 [facility] WBC Auto #/vol (Bld) 4.6 10*3/uL Low 4.8-10.8 [facility] Sedimentation Rateon 018 Sedimentation Rate 48 mm Critically high 0-10 M [facility] Basic Metabolic Panel Reflex Mgon 05-01-2018 Anion gap 3 molar conc 15 mmol/L Critically high 7-13 [facility] Calcium mass conc 8.9 mg/dL Normal 8.6-10.2 [facility] Chloride molar conc 102 mmol/L Normal 98-107 [facility] CO2 molar conc 22 mmol/L Normal 22-29 [facility] Creatinine mass conc 0.85 mg/dL Normal 0.70-1.20 [facility] GFR/1.73 sq M predicted among blacks MDRD vol rate/area (S/P/Bld) mL/min/{1.73_m2} Normal >60 [facility] Comment on above: Result Comment: >60 mL/min/1.73m2 EGFR, calc. for ages 18 and older using theMDRD formula (not corrected for weight), is valid for stablerenal function. GFR/1.73 sq M.predicted MDRD vol rate/area mL/min/{1.73_m2} Normal >60 [facility] Comment on above: Result Comment: >60 mL/min/1.73m2 EGFR, calc. for ages 18 and older using theMDRD formula (not corrected for weight), is valid for stablerenal function. Glucose mass conc 189 mg/dL Critically high 74-109 [facility] Potassium reflex Mg 4.7 mEq/L Normal 3.5-5.1 [facility] Sodium molar conc 139 mmol/L Normal 132-144 [facility] Urea nitrogen mass conc 19 mg/dL Normal 6-20 [facility] CBC With Platelet and Differ entialon 05-01-2018 Basophils Auto #/vol (Bld) 0.0 10*3/uL Normal 0.0-0.2 [facility] Basophils/100 WBC Auto (Bld) 0.2 % Normal [facility] Eosinophils Auto #/vol (Bld) 0.0 10*3/uL Normal 0.0-0.7 [facility] Eosinophils/100 WBC Auto (Bld) 0.0 % Normal [facility] Erythrocyte distribution width Auto Ratio (RBC) 12.8 % Normal 11.5-14.5 [facility] Hematocrit Auto Volume Fraction (Bld) 40.5 % Low 42.0-52.0 [facility] Hemoglobin mass conc (Bld) 14.3 g/dL Normal 14.0-18.0 [facility] Lymphocytes Auto #/vol (Bld) 0.6 10*3/uL Low 1.0-4.8 [facility] Lymphocytes/100 WBC Auto (Bld) 6.1 % Normal [facility] MCH Auto Entitic mass (RBC) 31.1 pg Normal 27.0-31.3 [facility] MCHC Auto mass conc (RBC) 35.3 % Normal 33.0-37.0 [facility] MCV Auto Entitic volume (RBC) 88.2 fL Normal 80.0-100.0 [facility] Monocytes Auto #/vol (Bld) 0.3 10*3/uL Normal 0.2-0.8 [facility] Monocytes/100 WBC Auto (Bld) 2.6 % Normal [facility] Neutrophils Auto #/vol (Bld) 9.1 10*3/uL Critically high 1.4-6.5 [facility] Neutrophils/100 WBC Auto (Bld) 91.1 % Normal [facility] Platelets Auto #/vol (Bld) 209 10*3/uL Normal 130-400 [facility] RBC Auto #/vol (Bld) 4.60 10*6/uL Low 4.70-6.10 [facility] WBC Auto #/vol (Bld) 9.9 10*3/uL Normal 4.8-10.8 [facility] XR LUMBAR SPINE (2-3 VIEWS)o n 05-01-2018 XR LUMBAR SPINE (2-3 VIEWS) EXAMINATION: X-RAY: LUMBAR SPINE, 3 VIEWSCLINICAL HISTORY: Postoperative evaluation of the lumbar spine surgeryCOMPARISONS: Lumbar spine radiographs from March 03, 2018TECHNIQUE: AP and lateral views of the lumbar spine and cone-down lateral view lumbosacral junctionFINDINGS: There are 5 nonrib-bearing lumbar-type vertebral bodies. Anterolisthesis of L5 on S1 of approximately 9 mm. Mild multilevel anterior endplate spurring. Lumbar vertebral body heights are preserved. Postsurgical changes of posterior spinal fusion at L5-S1 with surgical clips noted over the soft tissues of the back. Surgical drain noted. No acute fracture. IMPRESSION: Postsurgical changes of lumbosacral spine fusion at L5-S1 with additional details as above.Interpreted by:Matteo Rodríguez, DOSigned by:Matteo Rodríguez, DO05/01/18inal result Normal [facility] Antibody IDon 04-30-2018 Antibody ID PATIENT: LAURO Chan LOC: LCOPS,ORPOOL,NONBILL # : [id number] : 1970 SEX: MORDERED BY: SAVANAH BILLS ORDERED : 04/30/2018 11:55 COLLECTED: 04/30/2018 10:45ORDER : [id number] RECEIVED : 04/30/2018 10:45 Notified [facility] of positive ab screen and delay of compatible blood 04/30/18 11:40 rEika Rodgers ----TEST NAME RESULT UNITS RANGES ABN FL STAntibody ID POS, Cold Auto Aggluti F Normal [facility] Basic Metabolic Panel Reflex Mgon 04-30-2018 Anion gap 3 molar conc 17 mmol/L Critically high 7-13 [facility] Calcium mass conc 9.1 mg/dL Normal 8.6-10.2 [facility] Chloride molar conc 102 mmol/L Normal 98-107 [facility] CO2 molar conc 20 mmol/L Low 22-29 [facility] Creatinine mass conc 1.07 mg/dL Normal 0.70-1.20 [facility] GFR/1.73 sq M predicted among blacks MDRD vol rate/area (S/P/Bld) mL/min/{1.73_m2} Normal >60 [facility] Comment on above: Result Comment: >60 mL/min/1.73m2 EGFR, calc. for ages 18 and older using theMDRD formula (not corrected for weight), is valid for stablerenal function. GFR/1.73 sq M.predicted MDRD vol rate/area mL/min/{1.73_m2} Normal >60 [facility] Comment on above: Result Comment: >60 mL/min/1.73m2 EGFR, calc. for ages 18 and older using theMDRD formula (not corrected for weight), is valid for stablerenal function. Glucose mass conc 132 mg/dL Critically high 74-109 [facility] Potassium reflex Mg 4.1 mEq/L Normal 3.5-5.1 [facility] Sodium molar conc 139 mmol/L Normal 132-144 [facility] Urea nitrogen mass conc 21 mg/dL Critically high 6-20 [facility] CBC With Platelet No Jenna quiñones 04-30-2018 Erythrocyte distribution width Auto Ratio (RBC) 12.9 % Normal 11.5-14.5 [facility] Hematocrit Auto Volume Fraction (Bld) 43.8 % Normal 42.0-52.0 [facility] Hemoglobin mass conc (Bld) 15.0 g/dL Normal 14.0-18.0 [facility] MCH Auto Entitic mass (RBC) 30.7 pg Normal 27.0-31.3 [facility] MCHC Auto mass conc (RBC) 34.3 % Normal 33.0-37.0 [facility] MCV Auto Entitic volume (RBC) 89.5 fL Normal 80.0-100.0 [facility] Platelets Auto #/vol (Bld) 208 10*3/uL Normal 130-400 [facility] RBC Auto #/vol (Bld) 4.89 10*6/uL Normal 4.70-6.10 [facility] WBC Auto #/vol (Bld) 10.4 10*3/uL Normal 4.8-10.8 [facility] BRIAN Poly Tubeon 04-30-2018 BRIAN Poly Tube PATIENT: LAURO Chan LOC: LCOPS,ORPOOL,NONBILL # : [id number] : 1970 SEX: MORDERED BY: SAVANAH BILLS ORDERED : 04/30/2018 12:48 COLLECTED: 04/30/2018 10:45ORDER : [id number] RECEIVED : 04/30/2018 10:45 Notified [facility] of positive ab screen and delay of compatible blood 04/30/18 11:40 Erika Rodgers ----TEST NAME RESULT UNITS RANGES ABN FL STDAT Poly Tube NEG F Normal [facility] FLUORO FOR SURGICAL PROCEDUR ESon 04-30-2018 FLUORO FOR SURGICAL PROCEDURES FLUORO FOR SURGICAL PROCEDURES : 04/30/2018CLINICAL HISTORY: L5-S1 fusion revision.COMPARISON: Outside lumbar spine CT 03/09/2018.Intraoper ative fluoroscopy was provided for Dr. Burks's L5-S1 fusion revision surgery.A total of 13.1 seconds of fluoroscopy was used, with one fluoroscopic still saved. No diagnostic images were obtained.Please see Dr. Burks's surgical notes for completeness.Interpr eted by:Cruz Ledesma MDSigned by:Cruz Ledesma MD05/01/18inal result [facility] RBC LRon 04-30-2018 RBC Auto #/vol (Bld) PATIENT: LAURO Chan LOC: LC2N,N226,01BILL# : [id number] : 1970 SEX: MORDERED BY: SAVANAH BILLS ORDERED : 04/30/2018 11:55 COLLECTED: 04/30/2018 18:46ORDER : [id number] RECEIVED : 04/30/2018 19:12 Notified [facility] of positive ab screen and delay of compatible blood 04/30/18 11:40 Erika Rodgers ----TEST NAME RESULT UNITS RANGES ABN FL STRBC LR E0382 RBC LR W0 F = Normal [facility] Rejection Notificationon Rejected Test tyrcc Normal [facility] Type and Screen Capture 3 sc rn cellon 04-30-2018 Type and Screen Capture 3 scrn cell PATIENT: LAURO Chan LOC: GIL[facility]ERT [facility]IVERA NONBILL # : [id number] : 1970 SEX: MORDERED BY: SAVANAH BILLS ORDERED : 04/30/2018 10:06 COLLECTED: 04/30/2018 10:45ORDER : [id number] RECEIVED : 04/30/2018 10:45 Notified [facility] of positive ab screen and delay of compatible blood 04/30/18 11:40 Erika Rodgers ----TEST NAME RESULT UNITS RANGES ABN FL STABORH Capture B POS FAntibody 3 Cell Scrn Captu POS F Normal [facility] Vital Signs Date Time Vital Sign Value Performing Clinician Facility 02-11-2023 14:18-0400 Blood Pressure Location Bill [facility] [place] 02-11-2023 14:18-0400 Diastolic blood pressure 104 mm[Hg] Bill [facility] [place] 02-11-2023 14:18-0400 Heart rate 80 /min Bill [facility] [place] 02-11-2023 14:18-0400 Respiratory rate 16 /min Bill [facility] [place] 02-11-2023 14:18-0400 Systolic blood pressure 140 mm[Hg] Bill [facility] [place] 01-12-2021 13:17-0400 Body temperature 96.1 [degF] Referring Provider Unknown [facility] Work Phone: 01-12-2021 13:17-0400 Body weight 168.29 kg Referring Provider Unknown [facility] Work Phone: 01-12-2021 13:17-0400 Diastolic blood pressure 90 mm[Hg] Referring Provider Unknown [facility] Work Phone: 01-12-2021 13:17-0400 Heart rate 88 /min Referring Provider Unknown [facility] Work Phone: 01-12-2021 13:17-0400 SaO2% (BldA) [Mass fraction] 95 % Referring Provider Unknown [facility] Work Phone: 01-12-2021 13:17-0400 Systolic blood pressure 134 mm[Hg] Referring Provider Unknown [facility] Work Phone: 01-12-2021 13:17-0400 0 1 Referring Provider Unknown [facility] Work Phone: Comment on above: [facility] 11-22-2020 13:10-0400 Body temperature 95.8 [degF] Referring Provider Unknown [facility] Work Phone: 11-22-2020 13:10-0400 Body weight 166.43 kg Referring Provider Unknown [facility] Work Phone: 11-22-2020 13:10-0400 Diastolic blood pressure 87 mm[Hg] Referring Provider Unknown [facility] Work Phone: 11-22-2020 13:10-0400 Heart rate 96 /min Referring Provider Unknown [facility] Work Phone: 11-22-2020 13:10-0400 SaO2% (BldA) [Mass fraction] 93 % Referring Provider Unknown [facility] Work Phone: 11-22-2020 13:10-0400 Systolic blood pressure 144 mm[Hg] Referring Provider Unknown [facility] Work Phone: 11-22-2020 [phone] Referring Provider Unknown [facility] Work Phone: Comment on above: [facility] Encounters Encounter Date Encounter Type Care Provider Facility Start: 04-22-2023 End: 04-23-2023 [facility]: 04-22-2023 End: 04-22-2023 Patient encounter procedure Bill R NILL [facility] [place] Start: 04-09-2023 End: 04-10-2023 ambulatory Bill R BRITTANYL Facility:[facility]:[id number] Start: 02-11-2023 End: 02-12-2023 [facility]: 02-11-2023 End: 02-11-2023 Patient encounter procedure Bill R NILL [facility] Start: 01-30-2023 ambulatory Bill SOTOL Facility: [facility] [place] Start: 09-13-2022 End: 09-13-[address] DORON CAMACHO . [facility] Other Start: 09-13-2022 Patient encounter procedure Halie Sam [facility] Start: 08-16-2022 Encounter for genera l adult medical examination without abnormal findings DR DORON CAMACHO . [facility] Start: 08-10-2022 End: 08-11-[address] DORON CAMACHO . Facility:[facility] Start: 08-10-2022 End: 08-11-2022 Encounter for general adult medical examination without abnormal findings DR DORON CAMACHO . Facility:[facility] Start: 01-12-2021 Office outpatient vi sit 40 minutes Referring Provider Unknown [facility] Work Phone: Start: 11-22-2020 Office consultation new/estab patient 80 min Referring Provider Unknown [facility] Work Phone: Start: 05-07-2018 End: 05-07-2018 Emergency department patient visit [facility] Start: 05-07-2018 Encounter for genera l adult medical examination without abnormal findings [facility] Start: 04-30-2018 End: 05-03-2018 Patient encounter procedure [facility] Start: 04-30-2018 End: 05-02-2018 Evaluation and management of inpatient [facility] Patient encounter status Referri ng Provider Unknown [facility] Work Phone: Procedures Date Procedure Procedure Detail Performing Clinician Start: 04-09-2023 Colonoscopy Bill NI LL Start: 08-10-[address] VANE CAMACHO . Comment on above: Performed By: #### P [facility] #### [facility] [address] [place] [address] Dr. Frank Nugent Start: 07-19-2020 Basic metabolic 1998 panel - Serum or Plasma Stuart Miguel Start: 07-19-2020 Blood count complete auto&auto difrntl wbc Stuart Miguel Start: 05-07-2018 Blood count complete auto&auto difrntl wbc SANJU SAVANAH Start: 05-07-2018 SEDIMENTATION RATE SANJU Y OO Start: 05-02-2018 INCENTIVE SPIROMETRY RT SANJU SAVANAH Start: 05-02-2018 DISCHARGE PATIENT SANJU YO O Start: 05-02-2018 INCENTIVE SPIROMETRY RT SANJU SAVANAH Start: 05-02-2018 PULSE OXIMETRY, CONTINUOUS SANJU SAVANAH Start: 05-02-2018 INCENTIVE SPIROMETRY RT SANJU SAVANAH Start: 05-02-2018 HOME BIPAP OR CPAP SANJU Y OO Start: 05-02-2018 INCENTIVE SPIROMETRY RT SANJU SAVANAH Start: 05-02-2018 INITIATE OXYGEN THER APY PROTOCOL SANJU SAVANAH Start: 05-02-2018 PULSE OXIMETRY, CONTINUOUS SANJU SAVANAH Start: 05-02-2018 INCENTIVE SPIROMETRY RT SANJU SAVANAH Start: 05-02-2018 PULSE OXIMETRY, CONTINUOUS SANJU SAVANAH Start: 05-02-2018 PULSE OXIMETRY, CONTINUOUS SANJU SAVANAH Start: 05-02-2018 INCENTIVE SPIROMETRY RT SANJU SAVANAH Start: 05-01-2018 INCENTIVE SPIROMETRY RT SANJU SAVANAH Start: 05-01-2018 PULSE OXIMETRY, CONTINUOUS SANJU SAVANAH Start: 05-01-2018 INCENTIVE SPIROMETRY RT SANJU SAVANAH Start: 05-01-2018 INCENTIVE SPIROMETRY RT SANJU SAVANAH Start: 05-01-2018 PULSE OXIMETRY, CONTINUOUS SANJU SAVANAH Start: 05-01-2018 INCENTIVE SPIROMETRY RT SANJU SAVANAH Start: 05-01-2018 INCENTIVE SPIROMETRY RT SANJU SAVANAH Start: 05-01-2018 PULSE OXIMETRY, CONTINUOUS SANJU SAVANAH Start: 05-01-2018 Radex spine lumbosac ral 2/3 views SANJU SAVANAH Start: 05-01-2018 INCENTIVE SPIROMETRY RT SANJU SAVANAH Start: 05-01-2018 HOME BIPAP OR CPAP SANJU Y OO Start: 05-01-2018 INCENTIVE SPIROMETRY RT SANJU SAVANAH Start: 05-01-2018 INITIATE OXYGEN THER APY PROTOCOL SANJU SAVANAH Start: 05-01-2018 PULSE OXIMETRY, CONTINUOUS SANJU SAVANAH Start: 05-01-2018 INCENTIVE SPIROMETRY RT SANJU SAVANAH Start: 05-01-2018 Blood count complete auto&auto difrntl wbc SANJU SAVANAH Start: 05-01-2018 Comprehensive metabo lic panel SANJU SAVANAH Start: 05-01-2018 DIET GENERAL SANJU SAVANAH Start: 05-01-2018 PULSE OXIMETRY, CONTINUOUS SANJU SAVANAH Start: 05-01-2018 IP CONSULT TO SOCIAL WORK SANJU SAVANAH Start: 05-01-2018 ACTIVITY TOLERATED B O SAVANAH Start: 05-01-2018 AMBULATE PATIENT SANJU SAVANAH Start: 05-01-2018 CATHETER REMOVAL SANJU SAVANAH Start: 05-01-2018 DAILY WEIGHTS SANJU SAVANAH Start: 05-01-2018 OT EVAL AND TREAT SANJU YO O Start: 05-01-2018 PT EVAL AND TREAT SANJU YO O Start: 05-01-2018 PULSE OXIMETRY, CONTINUOUS SANJU SAVANAH Start: 05-01-2018 INCENTIVE SPIROMETRY RT SANJU SAVANAH Start: 04-30-2018 HOME BIPAP OR CPAP SANJU Y OO Start: 04-30-2018 PLACE INTERMITTENT PNEUMATIC COMPRESSION DEVICE SANJU SAVANAH Start: 04-30-2018 INCENTIVE SPIROMETRY RT SANJU SAVANAH Start: 04-30-2018 INITIATE OXYGEN THER APY PROTOCOL SANJU SAVANAH Start: 04-30-2018 NEURO/VASCULAR CHECKS B O SAVANAH Start: 04-30-2018 PULSE OXIMETRY, CONTINUOUS SANJU SAVANAH Start: 04-30-2018 TOBACCO CESSATION EDUCATION SANJU SAVANAH Start: 04-30-2018 WOUND CARE SANJU SAVANAH Start: 04-30-2018 ADVANCE DIET TOLE RATED (NURSING COMMUNICATION) SANJU SAVANAH Start: 04-30-2018 ELEVATE HOB SANJU SAVANAH Start: 04-30-2018 FULL CODE SANJU SAVANAH Start: 04-30-2018 INTAKE AND OUTPUT SANJU YO O Start: 04-30-2018 NOTIFY PHYSICIAN (SPECIFY) SANJU SAVANAH Start: 04-30-2018 TELEMETRY MONITORING SANJU SAVANAH Start: 04-30-2018 VITAL SIGNS SANJU SAVANAH Start: 04-30-2018 Comprehensive metabo lic panel SANJU SAVANAH Start: 04-30-2018 Blood count complete automated SANJU SAVANAH Start: 04-30-2018 TRANSFER PATIENT SANJU SAVANAH Start: 04-30-2018 PATIENT STATUS (FROM ED OR OR/PROCEDURAL) SANJU SAVANAH Start: 04-30-2018 FLUORO FOR SURGICAL PROCEDURES SANJU SAVANAH Start: 04-30-2018 Drug tst prsmv instr mnt chem analyzers pr date SANJU SAVANAH Start: 04-30-2018 ANTIBODY IDENTIFICATION SANJU SAVANAH Start: 04-30-2018 DIRECT ANTIGLOBULIN TEST SANJU SAVANAH Start: 04-30-2018 PREPARE RBC (CROSSMATCH) SANJU SAVANAH Start: 04-30-2018 TYPE AND SCREEN SANJU SAVANAH Arthroscopy of shoulder Esdras ael NILL Lumbar spinal fusion Bill NILL Lumbar spinal fusion Bill NILL Operative procedure on knee Referring Provider Unknown Repair of left ingui nal hernia Bill NILL Repair of meniscus Bill ZARAGOZA Repair of right ingu inal hernia Bill NILL Repair of shoulder Referring Provider Unknown Spinal arthrodesis Referring Provider Unknown Plan of Treatment Date Care Activity Detail Author Start: 01-12-2021 FUV, Provider: Carter Kruse, Status: Pen, Time: 1:30 PM FUV, Provider: Carter Kruse, Status: Pen, Time: 1:30 PM [facility] Work Phone: Start: 01-12-2021 PST, Provider: [facility] FLR PFT WALKWAY,PULM, Status: Pen, Time: 1:15 PM PST, Provider: [facility] FLR PFT WALKWAY,PULM, Status: Pen, Time: 1:15 PM [facility] Work Phone: Start: 01-12-2021 P[facility], [facility], Status: Pen, Time: 11:30 AM PFT, Provider: [facility] 6[facility] FLR PFT RM1,PULM, Status: Pen, Time: 11:30 AM [facility] Work Phone: Start: 12-15-2020 ECHO, Provider: KARISHMA AKERS,MG CARD, Status: Pen, Time: 2:00 PM ECHO, Provider: KARISHMA HHVI,MG CARD, Status: Pen, Time: 2:00 PM [facility] Work Phone: Immunizations Immunization Date Immunization Notes Care Provider Soledad rosado 09-18-2020 Pfizer-BioNTech COVI D-19 Vacc 30 MCG/0.3ML Intramuscular Suspension Referring Provider Unknown [facility] [place] 08-28-2020 Pfizer-BioNTech COVI D-19 Vacc 30 MCG/0.3ML Intramuscular Suspension Referring Provider Unknown [facility] Surgery [place] Payers Date Payer Category Payer Unknown [id number] 1970 Unknown [id number] 2.16.8 [id number] 1972 Unknown [id number] 2.16.8 [id number] 1972 Unknown [id number] 2.16.8 [id number] 1972 Unknown [id number] 2.16.84 [id number] 1972 Unknown [id number] 2.16.84 [id number] 1972 Unknown [id number] 2.16.8 [id number] 1972 Unknown [id number] 2.16.8 [id number] 1972 Unknown [id number] 2.16.8 [id number] 1959 Unknown [id number] 2.16.8 [id number] Unknown Social History Date Type Detail Facility Never a smoker Never a smoker [facility] [facility] Work Phone: Sex Assigned At [facility] Start: 02-11-2023 Tobacco smoking status Never smoked tobacco (finding) General Surgery [place] Tobacco smoking status Never General Surgery [place] NEGATED: Highlighted row - - [facility] Work Phone: Functional Status Date Assessment Result Facility 02-11-2023 Functional Status N/A General [facility] [place] NEGATED: Highlighted row Functional performance Functional status health issues are not documented Disease [facility] Work Phone: Mental Status Date Assessment Result Facility NEGATED: Highlighted row Cognitive function [Interpretation] Cognitive status health issues are not documented Disease [facility] Work Phone: Clinical Note 02-11-2023 Note Date & Type Note Facility 02-11-2023 Note Chief Complaint consultation for abdominal pain HPI Staff 52 year old male presents on consultation from Dr. Camacho for abdominal pain. Reports several week history of LLQ pain. He is unable to describe pain. States abdominal pain correlates with back pain. Patient has known lumbar disease with two previous spinal fusions. States when he has back pain he will experience abdominal pain although the pain does not feel the same. He reports one year history of intermittent rectal pain and bleeding for which he contributes to anal fissure. Reports blood is bright red. Denies change in bowel habits. Reports intermittent nausea for unknown period of time. Denies vomiting. No unexplained weight loss. CT abdomen/pelvis w/o contrast 01/27 with hepatic steatosis, right nephrolithiasis and chronic mediastinal lymphadenopathy. CT abdomen/pelvis with contrast 01/29 with thickened appendix, otherwise unremarkable. Never had colonoscopy in the past. History of Present Illness 52 yo male with h/o htn, DMII, hypercholesterolemia, CLEM, sarcoidosis; referred for abnormal abd/pelvic ct scan, originally done for LLQ pain; ct wnl, except for right nephrolithiasis, also read as mildly dilated appendix; images reviewed, no fecalith or inflammatory changes, no significant dilation of appendix; patient reports intermittent LLQ sharp pain/ache, coincides with back pain on left; positional; no change with eating or bms; occasional nausea, no emesis; no change in bms, does have intermittent rectal bleeding with bms, in toilet bowel and with wiping; no melena or hematochezia; only abd operations remote bilateral inguinal herniorrhaphies as a child; on diclofenac daily no asa, no SBE prophylaxis; no fmhx of GI malignancy or IBD; no tobacco use. Review of Systems PHQ Score Initial Depression Screen Score: 0 ROS - Provider Constitutional: no fever, no sweats, no weight loss. Eyes: no glasses, no blurred vision, no visual loss. ENMT: no dentures, no hoarseness, no swallowing difficulties, no hearing loss, no ear infection(s), no nose bleeds. Cardiovascular: normal blood pressure, no chest pain, regular heartbeat, no heart murmur. Respiratory: no shortness of breath, no cough, no asthma, no wheezing. Gastrointestinal: no nausea, no vomiting, no diarrhea, no constipation, no blood in stool, no change in bowel habits, no abdominal pain, no hepatitis. Genitourinary: no kidney stones, no urine infection, no dysuria. Musculoskeletal: no pain, no weakness. Skin: no changing moles, no rash, no skin lumps. Neurologic: no seizures, no epilepsy, no headache. Psychiatric: no emotional or psychiatric problem. Heme/Lymph: no bleeding problems, no anemia, no blood clots, no transfusions. Allergy/Immunologic: no swollen lymph nodes/glands, no IV drug abuse. Other: Additional ROS info: Except as noted in the above Review of Systems and in the History of Present Illness, all other systems have been reviewed and are negative or noncontributory. Physical Exam Vitals & Measurements HR: 80(Peripheral) RR: 16 BP: 140/104 HT: 71 in HT: 180 cm WT: 166 kg WT: 365.2 lb BMI: 51.23 HEENT: normal conjunctiva, sclera clear, no scleral icterus, EOM intact, PERRLA, oral mucosa moist without lesions. Neck: trachea midline, no mass, symmetric, no thyromegaly or nodules, no adenopathy Respiratory: lungs CTA, respirations non labored. Cardiovascular: regular rate and rhythm, no murmur, no pedal edema or varicosities. Gastrointestinal: obese, soft, non distended, mild tenderness, mid abd no masses, no palpable hernias, diastasis recti no, no hepatosplenomegaly; normal bs Lymphatic: no cervical adenopathy, no supraclavicular adenopathy. Musculoskeletal: normal gait, digits and nails without infection, nodes, cyanosis, clubbing. Skin: no rashes, no lesions, no ulcers, no subcutaneous nodules, induration. Psychiatric/Neuro: oriented to time, place, person, judgement normal, affect appropriate for age, insight intact, no focal deficits. Tests: , x-rays reviewed, review of old records completed , Discussed surgical options, risks, and possible complications with patient. Assessment/Plan 1. Rectal bleeding (K62.5: Hemorrhage of anus and rectum) plan colonoscopy under anesthesia, informed consent obtained. 2. LLQ abdominal pain (R10.32: Left lower quadrant pain) see # [address] scan (R93.5: Abnormal findings on diagnostic imaging of other abdominal regions, including retroperitoneum) will evaluate appendiceal orifice at time of colonoscopy; no significant distension noted. 4. BMI 50.0-59.9, adult (Z68.43: Body mass index [BMI] 50.0-59.9, adult) recommend diet and exercise Follow-up No qualifying data available Problem List/Past Medical History Ongoing Abnormal abdominal CT scan BMI 50.0-59.9, adult Diabetes Hepatic steatosis Hepatomegaly History of nephrolithiasis HTN (hypertension) Hypercholesteremia Interstitial lung disease LLQ abdominal pain Me (more content not included)... [facility] Comment on above: Result Comment: Elec tronically Signed By: LETHA ISIDRO, Bill Wilcox\Date and Time Signed: 02/11/23 15:20 EDT History of Present illness Narrative 11-22-2020 Note Date & Type Note Facility 11-22-2020 History of Present illness Narrative Mr. Wilson is a 50 y.o man, never a smoker, being evaluated for dyspnea on exertion and sarcoidosis.PCP: Dr. Goodrichther: Dr. Adan (pulmonary in [place])HPI:11/22/2020: At baseline, he had no dyspnea on exertion or at rest. His symptoms started about 1 year ago, but seem to be progressing. He is active in her everyday life and carries loads and does strenuous exercise. He has to stop for breath after walking about 100 meters or a few minutes (mMRC 3). He also relates some orthopnea, no pnd, and occasional jasiel. He has gained 50 pounds in the last 6 months. He also relates occasional cough, wheezing, and clear, sputum. No night cough. No hemoptysis. No fever or shivering chills. He has no runny nose, or a tingling sensation in the back of his throat. He denies chest pain or heartburn.Previous pulmonary history:He has no history of recurrent infections, or lung disease as a child. He had no previous lung hx, never on oxygen or inhaler therapy. He had a CT chest that showed hilar/mediastinal adenopahty. He had a bronchoscopy with EBUS by Dr. Miguel on 07/24/2020. BAL with 32% lymph (CD4/CD8 ratio of 5). Station 7 bx with non-caseating granulomas. Cultures were negative. 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 He initially felt slightly improved but shortly started worsening again. 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 Has known exposure to asbestos, silica or berylliumCTD evaluation: No hx of joint pain/swelling, skin rashes, Raynaud's, sicca syndrome, eye redness, muscle pain and weakness, difficulty swallowing.Family History:No family history of lung diseases or cancerImaging history: (I have personally reviewed the imaging below)05/04/2021: CTPE with hilar/mediastinal ADP but clear parenchymaPFTs: None on record6 MWTs: None on recordLung biopsy: None on recordEcho:05/04/2020 -> difficult to interpret images, probably 2/2 body habitus. ?RV enlargement but preserved RV rurvsxsj94/13/2020 -> NM stress test with No ischemia, normal wall motion, lower normal EF, left ventriculomegalyLabs:None on record [facility] [facility] Work Phone: History of Present illness Narrative 11-22-2020 Note Date & Type Note Facility 11-22-2020 History of Present illness Narrative Mr. Wilson is a 50 y.o man, never a smoker, being evaluated for dyspnea on exertion and sarcoidosis.PCP: Dr. Pereira: Dr. Adan (pulmonary in [place])HPI:11/22/2020: At baseline, he had no dyspnea on exertion or at rest. His symptoms started about 1 year ago, but seem to be progressing. He is active in her everyday life and carries loads and does strenuous exercise. He has to stop for breath after walking about 100 meters or a few minutes (mMRC 3). He also relates some orthopnea, no pnd, and occasional jasiel. He has gained 50 pounds in the last 6 months. He also relates occasional cough, wheezing, and clear, sputum. No night cough. No hemoptysis. No fever or shivering chills. He has no runny nose, or a tingling sensation in the back of his throat. He denies chest pain or heartburn.Previous pulmonary history:He has no history of recurrent infections, or lung disease as a child. He had no previous lung hx, never on oxygen or inhaler therapy. He had a CT chest that showed hilar/mediastinal adenopahty. He had a bronchoscopy with EBUS by Dr. Miguel on 07/24/2020. BAL with 32% lymph (CD4/CD8 ratio of 5). Station 7 bx with non-caseating granulomas. Cultures were negative. 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 He initially felt slightly improved but shortly started worsening again. 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 Has known exposure to asbestos, silica or berylliumCTD evaluation: No hx of joint pain/swelling, skin rashes, Raynaud's, sicca syndrome, eye redness, muscle pain and weakness, difficulty swallowing.Family History:No family history of lung diseases or cancerImaging history: (I have personally reviewed the imaging below)05/04/2021: CTPE with hilar/mediastinal ADP but clear parenchymaPFTs: None on record6 MWTs: None on recordLung biopsy: None on recordEcho:05/04/2020 -> difficult to interpret images, probably 2/2 body habitus. ?RV enlargement but preserved RV sejibstl10/13/2020 -> NM stress test with No ischemia, normal wall motion, lower normal EF, left ventriculomegalyLabs:None on record [employer] [facility] [employer] Work Phone: History of Present illness Narrative 11-22-2020 Note Date & Type Note Facility 11-22-2020 History of Present illness Narrative Mr. Wilson is a 50 y.o man, never a smoker, being evaluated for dyspnea on exertion and sarcoidosis.PCP: Dr. Pereira: Dr. Adan (pulmonary in [place])HPI:11/22/2020: At baseline, he had no dyspnea on exertion or at rest. His symptoms started about 1 year ago, but seem to be progressing. He is active in her everyday life and carries loads and does strenuous exercise. He has to stop for breath after walking about 100 meters or a few minutes (mMRC 3). He also relates some orthopnea, no pnd, and occasional jasiel. He has gained 50 pounds in the last 6 months. He also relates occasional cough, wheezing, and clear, sputum. No night cough. No hemoptysis. No fever or shivering chills. He has no runny nose, or a tingling sensation in the back of his throat. He denies chest pain or heartburn.Previous pulmonary history:He has no history of recurrent infections, or lung disease as a child. He had no previous lung hx, never on oxygen or inhaler therapy. He had a CT chest that showed hilar/mediastinal adenopahty. He had a bronchoscopy with EBUS by Dr. Miguel on 07/24/2020. BAL with 32% lymph (CD4/CD8 ratio of 5). Station 7 bx with non-caseating granulomas. Cultures were negative. 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 He initially felt slightly improved but shortly started worsening again. 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 Has known exposure to asbestos, silica or berylliumCTD evaluation: No hx of joint pain/swelling, skin rashes, Raynaud's, sicca syndrome, eye redness, muscle pain and weakness, difficulty swallowing.Family History:No family history of lung diseases or cancerImaging history: (I have personally reviewed the imaging below)05/04/2021: CTPE with hilar/mediastinal ADP but clear parenchymaPFTs: None on record6 MWTs: None on recordLung biopsy: None on recordEcho:05/04/2020 -> difficult to interpret images, probably 2/2 body habitus. ?RV enlargement but preserved RV srnxysbi33/13/2020 -> NM stress test with No ischemia, normal wall motion, lower normal EF, left ventriculomegalyLabs:None on record [facility] [facility] Work Phone: History of Present illness Narrative 11-22-2020 Note Date & Type Note Facility 11-22-2020 History of Present illness Narrative Mr. Wilson is a 50 y.o man, never a smoker, being evaluated for dyspnea on exertion and sarcoidosis.PCP: Dr. Pereira: Dr. Adan (pulmonary in [place])HPI:11/22/2020: At baseline, he had no dyspnea on exertion or at rest. His symptoms started about 1 year ago, but seem to be progressing. He is active in her everyday life and carries loads and does strenuous exercise. He has to stop for breath after walking about 100 meters or a few minutes (mMRC 3). He also relates some orthopnea, no pnd, and occasional jasiel. He has gained 50 pounds in the last 6 months. He also relates occasional cough, wheezing, and clear, sputum. No night cough. No hemoptysis. No fever or shivering chills. He has no runny nose, or a tingling sensation in the back of his throat. He denies chest pain or heartburn.01/12/2021: Since the last visit, patient's breathing is mostly unchanged. Weaned off steroids. Did not feel a big difference off the steroids. Had HRCT, echo, pfts, 6MWT and labs done (results below).Previous pulmonary history:He has no history of recurrent infections, or lung disease as a child. He had no previous lung hx, never on oxygen or inhaler therapy. He had a CT chest that showed hilar/mediastinal adenopahty. He had a bronchoscopy with EBUS by Dr. Miguel on 07/24/2020. BAL with 32% lymph (CD4/CD8 ratio of 5). Station 7 bx with non-caseating granulomas. Cultures were negative. 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 He initially felt slightly improved but shortly started worsening again. 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 Has known exposure to asbestos, silica or berylliumCTD evaluation: No hx of joint pain/swelling, skin rashes, Raynaud's, sicca syndrome, eye redness, muscle pain and weakness, difficulty swallowing.Family History:No family history of lung diseases or cancerImaging history: (I have personally reviewed the imaging below)12/15/2020 HRCT with hilar/mediastinal ADP but clear dpehkpdvel42/24/2021: CTPE with hilar/mediastinal ADP but clear parenchymaPFTs:01/12/2021 -> Ratio of 0.77/FEV1 3.67L (74%) (no BD response)/FVC 2.82L (72%)/TLC 76%/RVtoTLC ratio 0.42/DLCO 89%6 MWTs:01/12/2021->on RA, 191 m. Peak SpO2 of 95%. Gary SpO2 92%. (HR went up from 85 to 120 and BP from 150-202 systolic)Lung biopsy: None on recordEcho:12/15/2020 -> Normal EF, no diastolic dysfunction, with normal LA, RV size and /24/2020 -> difficult to interpret images, probably 2/2 body habitus. ?RV enlargement but preserved RV xujugfex43/13/2020 -> NM stress test with No ischemia, normal wall motion, lower normal EF, left ventriculomegalyLabs:CBC with lymphopenia (590)low 25 OH vitamin D but high 1-25 OH vitamin D, elevated 24hr urine calcium without hematuria [facility] [employer] Work Phone: Evaluation + Plan note Note Date & Type Note Facility Evaluation + Plan note No data available for this section General Surgery [employer] Evaluation note Note Date & Type Note Facility Evaluation note No Information [employer] Other History general Narrative - Reported Note Date & Type Note Facility History general Narrative - Reported Type Medical History Hypertension Medical History hypercholesterolemia Medical History back pain Medical History rotator cuff tear Surgical History rotator cuff Surgical History back surgery X2 Hospitalization History see above [facility] Other [facility] Discharge instructions Note Date & Type Note Facility Hospital Discharge instructions No data available for this section General Surgery [employer] Progress note Note Date & Type Note Facility Progress note No data available for this section General Surgery [place] Summary Purpose Family History No Family History Records Found uncle Name Dates Details Family history of malignant neoplasm of skin(V16.8, Z80.8) Status:Active Unknown Family Member Name Dates Details Family history of malignant neoplasm of skin: Uncle(V16.8, Z80.8) Status:Active Unknown Family Member Name Dates Details Family history of malignant neoplasm of skin: Uncle(V16.8, Z80.8) Status:Active Unknown Family Member Name Dates Details Family history of malignant neoplasm of skin: Uncle(V16.8, Z80.8) Status:Active Unknown Family Member Name Dates Details Family history of malignant neoplasm of skin: Uncle(V16.8, Z80.8) Status:Active Advance Directives No Advanced Directives Records FoundNo Advanced Directives Records FoundNo Advanced Directives Records FoundNo Advanced Directives Records FoundNo Advanced Directives Records FoundNo Advanced Directives Records Found Chief Complaint Initial visit with provider to discuss Sarcoidosis. Patient referred by .Initial visit with provider to discuss Sarcoidosis. Patient referred by .Initial visit with provider to discuss Sarcoidosis. Patient referred by .Follow up visit here to discuss results from today's pulmonary testing. Additional Source Comments (unrecognized sect ion and content) No Status Records FoundNo Status Records FoundNo Status Records FoundNo Status Records FoundNo Status Records FoundNo Status Records Found INFORMATION SOURCE (unrecogn ized section and content) DATE CREATED AUTHOR 05/08/2018 [facility] DATE CREATED AUTHOR AUTHOR'S ORGANIZ ATION 01/14/2021 [facility] DATE CREATED AUTHOR AUTHOR'S ORGANIZ ATION 01/14/2021 [employer] DATE CREATED AUTHOR AUTHOR'S ORGANIZ ATION 07/30/2021 [facility] DATE CREATED AUTHOR AUTHOR'S ORGANIZ ATION 09/19/2022 [facility] DATE CREATED AUTHOR AUTHOR'S ORGANIZ ATION 04/24/[address] [facility] REASON FOR VISIT (unrecogniz ed section and content) NAUSEAUS, HAVING PROBLEMS UR INATING, AND IT IS DARK Patient Care team informatio n (unrecognized section and content) Personnel Name: Doron Camacho MD Address: Address: [address] [place] [address] Personnel Name: Doron Camacho MD Address: Address: [address] [place] [address] FOR RECORDS PERTAINING TO PATIENTS WHO ARE OR HAVE BEEN ENROLLED IN A CHEMICAL DEPENDENCY/SUBSTANCEABUSE PROGRAM, SOME INFORMATION MAY BE OMITTED. This clinical summary was aggregated from multiple sources. Caution should be exercised in using it in the provision of clinical care. This summary normalizes information from multiple sources, and as a consequence, information in this document may materially change the coding, format and clinical context of patient data. In addition, data may be omitted in some cases. CLINICAL DECISIONS SHOULD BE BASED ON THE PRIMARY CLINICAL RECORDS. [facility] provides no warranty or guarantee of the accuracy or completeness of information in this document.
--- NOTE | 2023-12-24 12:56 | XR_ITS ---
[address] [address] Patient Name: JERRY RESTREPO MRN: [id number] date: 1970 Sex: M Assigned Patient Location: [facility] Current Patient Location: Accession/Order Number: [id number] Exam Date: 12/24/2023 12:50 Report Date: 12/27/2023 12:21 At the request of: DORON ZUÑIGA Procedure: XR knee RT 3V PROCEDURE: XR knee RT 3V COMPARISON: None. HISTORY: internal derangement right knee FINDINGS: BONES:Moderate to severe tricompartmental osteoarthritis with iwwh-ni-[id number] articulation the medial compartment. Marginal osteophyte formation SOFT TISSUES:Negative. No visible soft tissue swelling. EFFUSION:Moderate joint effusion OTHER: Negative. XR/XR knee RT 3V IMPRESSION: Moderate to severe osteoarthritis Electronically authenticated by: JOSE BRUCE Date: 12/27/2023 12:21
== END 2023-12-24 12:40 | disposition home or self-care (01) ==
PROVIDERS: PCP Family Medicine; Visit Provider Family Medicine
DX: M23.91 Unspecified internal derangement of right knee (principal)
CPT/HCPCS: 73562

== ENCOUNTER 2024-01-05 15:15 | Outpatient (OUT) | payer OTHER, SELFPAY ==
--- NOTE | 2024-01-05 15:23 | MR_ITS ---
[place] [id number] Patient Name: JERRY RESTREPO MRN: [id number] date: 1970 Sex: M Assigned Patient Location: [facility] Current Patient Location: Accession/Order Number: [id number] Exam Date: 01/05/2024 15:33 Report Date: 01/06/2024 10:45 At the request of: DORON ZUÑIGA Procedure: MR knee RT wo con EXAM: MR knee RT wo con HISTORY: Internal Derangement Of Knee COMPARISON: 12/24/2023 TECHNIQUE: MRI images obtained with multiple sequences. MRI of the right knee without contrast. Sequences obtained by standard department protocol. FINDINGS: Anterior cruciate and posterior cruciate ligaments are intact. Medial collateral ligament and lateral supporting structures are intact. Advanced degeneration of the medial compartment with full-thickness chondral loss and marginal osteophyte formation. Degeneration, maceration and tearing of the medial meniscal body. Free edge fraying of the medial meniscal posterior horn. Lateral meniscus is intact. Lateral compartment articular cartilage is preserved. Partial-thickness chondral fissuring/irregularity at the patellofemoral compartment. Extensor mechanism is intact. Intra-articular body of the lateral parapatellar recess measuring 1.5 x 1 cm. (Axial STIR image 4). Intra-articular body of the posterior aspect of the joint space measuring 1.3 x 0.7 cm (sagittal PD fat-sat image 10). Tricompartmental marginal osteophytes Mild subcutaneous soft tissue edema of the anterior aspect of the knee. No popliteal cyst. Large knee joint effusion. MR/MR knee RT wo con IMPRESSION: 1. Advanced degeneration of the medial compartment with full-thickness chondral loss and marginal osteophyte formation. 2. Degeneration, maceration and tearing of the medial meniscal body. 3. Large knee joint effusion. 4. Intra-articular body of the lateral parapatellar recess measuring 1.5 x 1 cm. (Axial STIR image 4). Intra-articular body of the posterior aspect of the joint space measuring 1.3 x 0.7 cm (sagittal PD fat-sat image 10). 5. Other findings as described. Electronically authenticated by: IDALIA WHELAN Date: 01/06/2024 10:45
== END 2024-01-05 15:16 | disposition home or self-care (01) ==
LOC: RAD 15:15
PROVIDERS: PCP Family Medicine; Visit Provider Family Medicine
DX: M23.90 Unspecified internal derangement of unspecified knee (principal); M25.461 Effusion, right knee
CPT/HCPCS: 73721

== ENCOUNTER 2024-04-02 08:54 | Outpatient (OUT) | payer OTHER, SELFPAY ==
--- NOTE | 2024-04-02 08:57 | XR_ITS ---
The [address] [address] Patient Name: JERRY RESTREPO MRN: [id number] date: 1970 Sex: M Assigned Patient Location: [place] Current Patient Location: Accession/Order Number: [id number] Exam Date: 04/02/2024 10:02 Report Date: 04/03/2024 06:59 At the request of: JIAME KAPLAN Procedure: XR abdomen 1V EXAMINATION: XR abdomen 1V HISTORY: Kidney Stone COMPARISON: XR abdomen 01/23/2023 FINDINGS: KIDNEY/URETER - RIGHT: Several stones projecting over right kidney, largest is 16 mm. KIDNEY/URETER - LEFT: No visible renal or ureteral calcifications. PELVIS: No appreciable ureteral stones. Stable pelvic calcifications favoring phleboliths. BOWEL: No abnormal dilation or deviation. BONES: Mechanical fusion of lower lumbar spine. OTHER: Negative. No abnormal gaseous collections. XR/XR abdomen 1V IMPRESSION: 1. Right nephrolithiasis with several large stones; increased compared to prior study. Electronically authenticated by: JEANINE ANDERSON Date: 04/03/2024 06:59
--- NOTE | 2024-04-02 08:57 | US_ITS ---
[address] [address] Patient Name: JERRY RESTREPO MRN: [id number] date: 1970 Sex: M Assigned Patient Location: [place] Current Patient Location: Accession/Order Number: [id number] Exam Date: 04/02/2024 09:03 Report Date: 04/03/2024 07:02 At the request of: JAIME KAPLAN Procedure: US renal BI EXAMINATION: US renal BI HISTORY: Kidney Stone COMPARISON: XR abdomen 04/02/2024, CT abdomen 01/29/2023 TECHNIQUE: Ultrasound examination was performed of the kidneys and urinary bladder. FINDINGS: RIGHT KIDNEY: Contain at least 2 nonobstructing stones, 15 x 13 x 7 mm and 20 x 14 x 11 mm. Normal parenchymal echogenicity. Color Doppler demonstrates blood flow within the kidney. Kidney: 12.4 x 7.6 x 6.6 cm LEFT KIDNEY: Contains a nonobstructing 7 x 6 x 4 mm stone. Normal parenchymal echogenicity. Color Doppler demonstrates blood flow within the kidney. Kidney: 14.1 x 7.1 x 6.3 cm BLADDER: No visible wall thickening, mass, or calculi. URETERAL JETS: Visualized bilaterally. US/US renal BI IMPRESSION: 1. Bilateral nonobstructing nephrolithiasis. Electronically authenticated by: JEANINE ANDERSON Date: 04/03/2024 07:02
--- OUTSIDE RECORDS SUMMARY | 2024-04-02 09:18 | XMS_ITS | CCD ---
Author Organization [facility] Care Team Providers Care Dental Assistant Name Role Phone SAVANAH, SANJU H. Unavailable Unavailable SAVANAH, SANJU H. Unavailable Unavailable DORON CAMACHO Unavailable Unavailable SAVANAH, SANJU H. Unavailable Unavailable SAVANAH, SANJU H. Unavailable Unavailable DORON CAMACHO Unavailable Unavailable SAVANAH, SANJU H. Unavailable Unavailable Unknown, Referring Provider Unavailable Unav ailable Unknown, Referring Provider Unavailable Unav ailable Unavailable Unavailable Halie Sam Unavailable DR DORON TSE Primary Care Unavailable PAY ., DR GANNON Admitting Unavailable PAY ., DR GANNON Consulting Unavailable PAY ., DR GANNON Attending Unavailable YURY FERNANDEZ Consulting Unavailable HOY ., DR SAL Admitting Unavailable HOY ., DR SAL Primary Care Unavailable HOY ., DR SAL Consulting Unavailable ZARA ., DR SAL Attending Unavailable Doron Camacho Primary Care Physician Bill MONAE Attending Unavailable Bill MONAE Attending Unavailable Alex PANG Attending Unavailable TIM KAPLAN Attending UnavailDoron Benavides Referring Unavailable TIM KAPLAN Admitting UnavailTIM Koo Attending Lizet truong Allergies Allergy Classification Reported Allergen(s) Allergy Type Date of Onset Reaction(s) Facility (1 source) No Known Medication Allergies; Translations: [No Known Medication Allergies] Propensity to adverse reactions (disorder) [facility] Repository Medications Current Medications Medication Drug Class(es) Dates Sig (Normalized) Sig (Original) fenofibrate 160 mg oral tablet (5 sources) Peroxisome Proliferator Receptor alpha Agonist Start: 02-05-2023 take 1 tablet by mouth once daily fenofibrate 160 mg oral tablet 160 mg = 1 tab(s), Oral, Daily, Refills(s) 0 Start Date: 02/05/23 Status: Ordered Fenofibrate Acti ve Gentamicin Sulfate (SHELTER) (1 source) Start: 10-11-2018 take 2 drop(s) into the eye(s) every four hours Garamycin 0.3 % 2 drops in affected eye Ophthalmic q 4 hours while awake for 5 days Oct, Active metoprolol tartrate 100 mg oral tablet (9 sources) beta-Adrenergic Ellis Start: 02-05-2023 take 1 tablet by mouth twice daily metoprolol tartrate 100 mg Tab 100 mg = 1 tab(s), Oral, BID, Refills(s) 0 Start Date: 02/05/23 Status: Ordered Metoprolol Tartr ate Active Metoprolol Tartr ate TABS Quantity: 0 Refills: 0 Ordered: 22-Nov-2020 DO Active oxaprozin 600 mg oral tablet (9 sources) Nonsteroidal Anti-inflammatory Drug Start: 02-05-2023 take 2 tablets by mouth once daily oxaprozin 600 mg Tab 1,200 mg = 2 tab(s), Oral, Daily, Refills(s) 0 Start Date: 02/05/23 Status: Ordered Oxaprozin Active Oxaprozin TABS Q uantity: 0 Refills: 0 Ordered: 22-Nov-2020 DO Active PARoxetine hydrochloride 40 mg oral tablet (5 sources) Serotonin Reuptake Inhibitor Start: 02-05-2023 take 1 tablet by mouth once daily paroxetine 40 mg Tab 40 mg = 1 tab(s), Oral, Daily, Refills(s) 0 Start Date: 02/05/23 Status: Ordered PARoxetine HCl A ctive Simvastatin (5 sources) HMG-CoA Reductase Inhibitor Start: 02-05-2023 simvastatin 0 Refill (s), Refills(s) 0 Start Date: 02/05/23 Status: Ordered Simvastatin Acti ve tamsulosin hydrochloride 0.4 mg oral capsule (2 sources) alpha-Adrenergic Ellis Start: 03-30-2024 End: 03-25-2025 take 2 capsules by mouth once daily Flomax 0.4 mg Cap 0.8 mg = 2 cap(s), Oral, Daily, X 30 day(s), # 60 cap(s), Refills(s) 11, Pharmacy: [id number], 180, cm, 03/30/24 9:46:00 EST, Height/Length Dosing, 149.8, kg, 03/30/24 9:46:00 EST, Weight Dosing Start Date: 03/30/24 Stop Date: 03/25/25 Status: Ordered Completed/Discontinued Medications Medication Drug Class(es) Dates Sig [...] 12-Jan-2021 DO End : 12-Jan-2021 Complete Problems Problem Classification Problem Date Documented Date Episodic/Chronic Abdominal pain (5 sources) Left lower quadrant pain; Translations: [Left lower quadrant pain] Onset: 02-12-20 Episodic Anal and rectal conditions (1 source) Rectal polyp; Translations: [Rectal polyp] Onset: 04-22-20 Episodic Calculus of urinary tract (5 sources) History of calculus of kidney; Translations: [Kidney stone] Onset: 03-30-2002-05-2023 Episodic Diabetes mellitus without complication (6 sources) Type 2 diabetes mellitus without complications; Translations: [Diabetes mellitus] Onset: 09-18-1902-05-2023 Chronic Disorders of lipid metabolism (4 sources) Hypercholesterolemia 02-05-2023 Chronic Diverticulosis and diverticulitis (4 sources) Diverticula of intestine; Translations: [Diverticulosis of large intestine without perforation or abscess without bleeding] Onset: 04-22-20 Chronic Essential hypertension (4 sources) Hypertensive disorder 02-05-2023 Chronic Fluid and electrolyte disorders (1 source) Dehydration; Translations: [DEHYDRATION] Onset: 09-18-19 Episodic Gastrointestinal hemorrhage (5 sources) Hemorrhage of rectum and anus; Translations: [Hemorrhage of anus and rectum] Onset: 02-12-20 Episodic Genitourinary symptoms and ill-defined conditions (1 source) Microscopic hematuria; Translations: [Other microscopic hematuria] Onset: 03-30-20 Episodic Headache; including migraine (1 source) Headache; including migraine; Translations: [HEADACHE UNSPECIFIED] Onset: 09-18-19 Hyperplasia of prostate (3 sources) Benign prostatic hypertrophy with outflow obstruction; Translations: [Benign prostatic hyperplasia with lower urinary tract symptoms] Onset: 03-30-20 Chronic Immunity disorders (8 sources) Sarcoidosis; Translations: [Sarcoidosis] 02-05-2023 Chronic Lymphadenitis (18 sources) Mediastinal lymphadenopathy; Translations: [Hilar lymphadenopathy ] 02-05-2023 Episodic Nausea and vomiting (4 sources) Nausea; Translations: [NAUSEA] Onset: 09-14-19 Episodic Nutritional deficiencies (4 sources) Vitamin D deficiency 02-05-2023 Chronic Other aftercare (1 source) Other assisted (current) drug therapy; Translations: [[employer] CURRENT DRUG THERAPY] Onset: 09-18-19 Episodic Other and unspecified benign neoplasm (3 sources) Hyperplastic polyp of large intestine 04-22-2023 Episodic Other circulatory disease (4 sources) H/O: hypertension; Translations: [Personal history of other diseases of circulatory system] Episodic Other connective tissue disease (2 sources) Arthrodesis status; Translations: [Arthrodesis status] Onset: 04-30-20 Episodic Other connective tissue disease (1 source) Myalgia, unspecified site; Translations: [MYALGIA UNSPECIFIED SITE] Onset: 09-18-19 Episodic Other diseases of kidney and ureters (1 source) Urinary tract obstruction; Translations: [Other obstructive and reflux uropathy] Onset: 03-30-20 Episodic Other liver diseases (4 sources) Steatosis of liver 02-05-2023 Chronic Other liver diseases (4 sources) Large liver 02-05-2023 Episodic Other lower respiratory disease (8 sources) Interstitial lung disease; Translations: [Postinflammatory pulmonary fibrosis] 02-05-2023 Chronic Other lower respiratory disease (5 sources) Dyspnea on exertion; Translations: [Other respiratory abnormalities] Episodic Other lower respiratory disease (1 source) Shortness of breath; Translations: [SHORTNESS OF BREATH] Onset: 09-18-19 Episodic Other male genital disorders (3 sources) Male erectile dysfunction, unspecified; Translations: [Erectile dysfunction] Onset: 03-30-20 Chronic Other nutritional; endocrine; and metabolic disorders (5 sources) Body mass index 40+ - severely obese; Translations: [Body mass index (BMI) 50.0-59.9, adult] Onset: 02-12-20 Chronic Other nutritional; endocrine; and metabolic disorders (4 sources) Morbid obesity 02-11-2023 Chronic Other screening for suspected conditions (not mental disorders or infectious disease) (7 sources) Encounter for screening for malignant neoplasm of prostate; Translations: [Imaging of abdomen abnormal] Onset: 08-17-19 Episodic Residual codes; unclassified (8 sources) Obstructive sleep apnea syndrome; Translations: [Obstructive sleep apnea (adult)(pediatric)] 02-05-2023 Chronic Residual codes; unclassified (1 source) Pain, unspecified; Translations: [Pain, unspecified] Onset: 04-30-20 Unclassified (4 sources) Patient encounter status; Translations: [Preop testing] 03-30-2024 Unclassified (1 source) CONTACT W/AND (SUSP) EXPOS COVID-19; Translations: [CONTACT W/AND (SUSP) EXPOS COVID-19] Onset: 09-18-19 Urinary tract infections (4 sources) Urinary tract infection, site not specified; Translations: [Urinary tract infectious disease] Onset: 09-18-19 Episodic Results Test Name Value Interpretation Reference Range Facility CHEMISTRYOrdered By: Patience Villarreal on 03-30-2024 HbA1c (Bld) [Mass fraction] 8.1 % High <=5.9% [facility] ChemAutoSS CHEMISTRYOrdered By: SYSTEM SYSTEM on 03-30-2024 Prostate specific Ag [Mass/Vol] 1.2 ng/mL Normal 0.1 - 3.5 ng/mL [facility] Comment on above: Interpretive Data: T he concentration of PSA determined by different manufacturers can vary due to differences in assay methods and reagent specificity. Values obtained from different assay methods cannot be used interchangeably. The methodology used for this result was chemiluminescence using [employer] Access Hybritech PSA reagent. Ambulatory Visit Summaryon 1 06-23-2022 Ambulatory Visit Summary JERRY WILSON :1970 Visit Date:04/22/2023 Ambulatory Visit Instructions Your Care Team Attending Physician - Bill MONAE MD Primary Care Physician - Doron Camacho MD [...] for choosing us for your care. Normal [facility] General Surgery Office/Clini c Noteon 04-22-2023 [...] (COVID-19) mRNA BNT-162b2 vax 08/28/2020 Recorded Normal [facility] Comment on above: Result Comment: Elec tronically Signed By: LETHA ISIDRO, Bill Wilcox\Date and Time Signed: 04/22/23 15:40 EST Reminderson 04-22-2023 Reminders - From: Silvia Jensen LPN To: N - Clinical; Sent: 04/22/2023 15:39:09 EST Show up: 03/09/2033 07:00:00 EDT Subject: colonoscopy recall Due Date/Time: 04/09/2033 07:00:00 EST Reminder/Recall Patient due for screening colonoscopy 04/09/2033. Normal [facility] Pathology Noteon 04-17-2023 Pathology Note [id number] .00TIFF Normal [facility] Outside Colonoscopyon 2022 Outside Colonoscopy [id number] .00TIFF Normal [facility] Lab Reportson 04-09-2023 Lab Reports [id number] .00TIFF Normal [facility] CULTURE URINEon 09-15-2022 CULTURE URINE Isolate 1 Morganella morganii 100,000 cfu/mL of ORGANISM 1 Morganella morganii ANTIBIOTIC M.I.C RX STATUS Ampicillin >=32 R F Ampicillin/Sulbactam 8 S F Piperacillin/Tazobact am <=4 S F Cefazolin >=64 R F Ceftazidime <=1 S F Ceftriaxone <=1 S F Ertapenem <=0.5 S F Imipenem 1 S F Amikacin <=2 S F Gentamicin <=1 S F Tobramycin <=1 S F Ciprofloxacin <=0.25 S F Levofloxacin <=0.12 S F Nitrofurantoin 64 R F Trimethoprim/Sulfamet hoxazole <=20 S F Normal [facility] Comment on above: Performed By: #### L IPA, CMP, CK, HSTROPN #### [facility] [address] [place] [address] Dr. Frank Nugent CBC AUTO DIFFon 09-13-2022 BASO # 0.0 103/ul Normal 0.0-0.1 [facility] Comment on above: Performed By: #### C BC #### [facility] [address] [place] [address] Dr. Frank Nugent Basophils/100 WBC (Bld) 0.2 % Normal 0.2-2.0 [facility] Comment on above: Performed By: #### C BC #### [facility] [address] [place] [address] Dr. Frank Nugent EO # 0.0 103/ul Normal 0.0-0.7 [facility] Comment on above: Performed By: #### C BC #### [facility] [address] [place] [address] Dr. Frank Nugent Eosinophils/100 WBC (Bld) 0.1 % Critically low 0.9-7.0 [facility] Comment on above: Performed By: #### C BC #### [facility] [address] [place] [address] Dr. Frank Nugent Erythrocyte distribution width (RBC) [Ratio] 12.7 % Normal 11.0-15.0 [facility] Comment on above: Performed By: #### C BC #### [facility] [address] [place] [address] Dr. Frank Nugent Hematocrit (Bld) [Volume fraction] 41.3 % Critically low 42.0-54.0 [facility] Comment on above: Performed By: #### C BC #### [facility] [address] [place] [address] Dr. Frank Nugent Hemoglobin (Bld) [Mass/Vol] 14.0 g/dL Normal 14.0-18.0 [facility] Comment on above: Performed By: #### C BC #### [facility] [address] [place] [address] Dr. Frank Nugent IG # 0.04 10e3/ul Critically high 0.00-0.03 [facility] Comment on above: Performed By: #### C BC #### [facility] [address] [place] [address] Dr. Frank Nugent IG % 0.3 % Normal 0.0-0.5 [facility] Comment on above: Performed By: #### C BC #### [facility] [address] [place] [address] Dr. Frank Nugent LYMPH # 1.0 103/ul Critically low 1.2-3.8 [facility] Comment on above: Performed By: #### C BC #### [facility] [address] [place] [address] Dr. Frank Nugent Lymphocytes/100 WBC (Bld) 6.9 % Critically low 20.5-60.0 [facility] Comment on above: Performed By: #### C BC #### [facility] [address] [place] [address] Dr. Frank Nugent MANUAL DIFF REQ NO Normal [facility] Comment on above: Performed By: #### C BC #### [facility] [address] [place] [address] Dr. Frank Nugent MCH (RBC) [Entitic mass] 29.5 pg Normal 25.9-34.0 [facility] Comment on above: Performed By: #### C BC #### [facility] [address] [place] [address] Dr. Frank Nugent MCHC (RBC) [Mass/Vol] 33.9 g/dL Normal 29.9-35.2 [facility] Comment on above: Performed By: #### C BC #### [facility] [address] [place] [address] Dr. Frank Nugent MCV (RBC) [Entitic vol] 87.1 fL Normal 80.0-94.0 [facility] Comment on above: Performed By: #### C BC #### [facility] [address] [address] [address] Frank Nugent MONO # 1.3 103/ul Critically high 0.3-0.8 [facility] Comment on above: Performed By: #### C BC #### [facility] [address] [address] [address] Frank Nugent Monocytes/100 WBC (Bld) 9.0 % Normal 1.7-12.0 [facility] Comment on above: Performed By: #### C BC #### [facility] [address] [place] [address] Dr. Frank Nugent NEUT # 12.2 103/ul Critically high 1.4-6.5 [facility] Comment on above: Performed By: #### C BC #### [facility] [address] [place] [address] Dr. Frank Nugent Neutrophils/100 WBC (Bld) 83.5 % Critically high 43.0-75.0 [facility] Comment on above: Performed By: #### C BC #### [facility] [address] [place] [address] Dr. Frank Nugent Platelet mean volume (Bld) [Entitic vol] 11.5 fL Normal 9.5-13.5 [facility] Comment on above: Performed By: #### C BC #### [facility] [address] [place] [address] Dr. Frank Nugent PLT 216 103/ul Normal 150-450 [facility] Comment on above: Performed By: #### C BC #### [facility] [address] [place] [address] Dr. Frank Nugent RBC 4.74 106/ul Normal 4.70-6.10 [facility] Comment on above: Performed By: #### C BC #### [facility] [address] [place] [address] Dr. Frank Nugent WBC 14.6 103/ul Critically high 4.0-11.0 [facility] Comment on above: Performed By: #### C BC #### [facility] [address] [place] [address] Dr. Frank Nugent CPKon 09-13-2022 CK [Catalytic activity/Vol] 260 U/L Normal 39-308 [facility] Comment on above: Performed By: #### L IPA, CMP, CK, HSTROPN #### [facility] [address] [place] [address] Dr. Frank Nugent CULTURE BLOODon 09-13-2022 Microscopic examination of blood, culture Culture Observations: NO GROWTH AT 5 DAYS. Normal [facility] Comment on above: Performed By: #### L IPA, CMP, CK, HSTROPN #### [facility] [address] [place] [address] Dr. Frank Nugent Microscopic examination of blood, culture Culture Observations: NO GROWTH AT 5 DAYS. Normal [facility] Comment on above: Performed By: #### L IPA, CMP, CK, HSTROPN #### [facility] [address] [place] [address] Dr. Frank Nugent [facility]-19 [facility]on SARS-CoV-2 (COVID-19) RNA JABIER+probe Ql (Unsp spec) Not detected Normal NOT DETECTED [facility] Comment on above: Result Comment: This test is not yet approved or cleared by the [place] FDA. When there are no FDA-approved or cleared tests available, and other criteria are met, FDA can make tests available under an emergency access mechanism called an Emergency Use Authorization (EUA). The EUA for this test is supported by the [place] of Health and Human Service's (HHS's) declaration [...] #### L IPA, CMP, CK, HSTROPN #### [facility] [address] [address] [address] Frank LUDWIG URINE PROFILEon 3 Bilirubin Ql (U) Negative Normal NEGATIVE [facility] Comment on above: Performed By: #### L IPA, CMP, CK, HSTROPN #### [facility] [address] [place] [address] Dr. Frank Nugent Clarity (U) CLEAR Normal CLEAR [facility] Comment on above: Performed By: #### L IPA, CMP, CK, HSTROPN #### [facility] [address] [place] [address] Dr. Frank Nugent Color (U) YELLOW Normal YELLOW [facility] Comment on above: Performed By: #### L IPA, CMP, CK, HSTROPN #### [facility] [address] [place] [address] Dr. Frank VEGA A micrscopic examination will be performed if indicated. Normal [facility] Comment on above: Performed By: #### L IPA, CMP, CK, HSTROPN #### [facility] [address] [place] [address] Dr. Frank Nugent Glucose Ql (U) 250 mg/dl Abnormal NEGATIVE [facility] Comment on above: Performed By: #### L IPA, CMP, CK, HSTROPN #### [facility] [address] [place] [address] Dr. Frank Nugent Hemoglobin Ql (U) SMALL Abnormal NEGATIVE [facility] Comment on above: Performed By: #### L IPA, CMP, CK, HSTROPN #### [facility] [address] [place] [address] Dr. Frank Nugent Ketones Ql (U) Negative Normal NEGATIVE [facility] Comment on above: Performed By: #### L IPA, CMP, CK, HSTROPN #### [facility] [address] [place], [place] [id number] Dr. Frank Nugent LEUKOCYTES TRACE Abnormal NEGATIVE [facility] Comment on above: Performed By: #### L IPA, CMP, CK, HSTROPN #### [facility] [address] [address] [address] Frank Nugent Nitrite Ql (U) Negative Normal NEGATIVE [facility] Comment on above: Performed By: #### L IPA, CMP, CK, HSTROPN #### [facility] [address] [address] [address] Frank Nugent pH (U) 5.5 [pH] Normal 5-9 [facility] Comment on above: Performed By: #### L IPA, CMP, CK, HSTROPN #### [facility] [address] [place] [address] Dr. Frank Nugent SPEC GRAVITY 1.020 Normal 1.005-<=1.025 [facility] Comment on above: Performed By: #### L IPA, CMP, CK, HSTROPN #### [facility] [address] [place] [address] Dr. Frank Nugent UA PROTEIN TRACE Normal NEGATIVE/ TRACE [facility] Comment on above: Performed By: #### L IPA, CMP, CK, HSTROPN #### [facility] [address] [place] [address] Dr. Frank Nugent UR MICRO IND INDICATED Normal [facility] Comment on above: Performed By: #### L IPA, CMP, CK, HSTROPN #### [facility] [address] [address] [address] Frank Nugent Urobilinogen Qn (U) 0.2 {Moni'U}/dL Normal 0.2 - 1. 0 [facility] Comment on above: Performed By: #### L IPA, CMP, CK, HSTROPN #### [facility] [address] [place] [address] Dr. Frank Nugent LACTATE/LACTIC ACIDon 2022 Lactate [Moles/Vol] 2.1 mmol/L Critically high 0.4-2.0 [facility] Comment on above: Performed By: #### L ACT #### [facility] [address] [place] [address] Dr. Frank Nugent LIPASEon 09-13-2022 Lipase [Catalytic activity/Vol] 116.0 U/L Normal 73.0-393.0 [facility] Comment on above: Performed By: #### L IPA, CMP, CK, HSTROPN #### [facility] [address] [place] [address] Dr. Frank Nugent PROF 14(COMP METB)on 023 Albumin [Mass/Vol] 4.0 g/dL Normal 3.4-5.0 [facility] Comment on above: Performed By: #### L IPA, CMP, CK, HSTROPN #### [facility] [address] [place] [address] Dr. Frank Nugent Albumin/Globulin [Mass ratio] 1.0 {ratio} Normal [facility] Comment on above: Performed By: #### L IPA, CMP, CK, HSTROPN #### [facility] [address] [place] [address] Dr. Frank Nugent ALP [Catalytic activity/Vol] 70 U/L Normal 46-116 [facility] Comment on above: Performed By: #### L IPA, CMP, CK, HSTROPN #### [facility] [address] [place] [address] Dr. Frank Nugent ALT [Catalytic activity/Vol] 55 U/L Normal 16-63 [facility] Comment on above: Performed By: #### L IPA, CMP, CK, HSTROPN #### [facility] [address] [place] [address] Dr. Frank Nugent Anion gap [Moles/Vol] 14.0 mmol/L Normal [facility] Comment on above: Performed By: #### L IPA, CMP, CK, HSTROPN #### [facility] [address] [place] [address] Dr. Frank Nugent AST [Catalytic activity/Vol] 28 U/L Normal 15-37 [facility] Comment on above: Performed By: #### L IPA, CMP, CK, HSTROPN #### [facility] [address] [address] [address] Frank Nugent Bilirubin [Mass/Vol] 2.1 mg/dL Critically high 0.2-1.0 [facility] Comment on above: Performed By: #### L IPA, CMP, CK, HSTROPN #### [facility] [address] [address] [address] Frank Nugent Calcium [Mass/Vol] 9.3 mg/dL Normal 8.5-10.1 [facility] Comment on above: Performed By: #### L IPA, CMP, CK, HSTROPN #### [facility] [address] [place] [address] Dr. Frank Nugent Chloride [Moles/Vol] 100 mmol/L Normal 98-107 [facility] Comment on above: Performed By: #### L IPA, CMP, CK, HSTROPN #### [facility] [address] [address] [address] Frank Nugent CO2 [Moles/Vol] 24.7 mmol/L Normal 21.0-32.0 [facility] Comment on above: Performed By: #### L IPA, CMP, CK, HSTROPN #### [facility] [address] [place] [address] Dr. Frank Nugent Creatinine [Mass/Vol] 1.31 mg/dL Critically high 0.70-1.30 [facility] Comment on above: Performed By: #### L IPA, CMP, CK, HSTROPN #### [facility] [address] [place] [address] Dr. Frank Nugent EGFR-AF INDONESIAN >60 Normal >=60 [facility] Comment on above: Performed By: #### L IPA, CMP, CK, HSTROPN #### [facility] [address] [place] [address] Dr. Frank Nugent EGFR-NON AF INDONESIAN 58 mL/min/1.73m2 Critically low >=60 [facility] Comment on above: Performed By: #### L IPA, CMP, CK, HSTROPN #### [facility] [address] [address] [address] Frank Nugent Globulin (S) [Mass/Vol] 4.0 g/dL Normal [facility] Comment on above: Performed By: #### L IPA, CMP, CK, HSTROPN #### [facility] [address] [address] [address] Frank Nugent Glucose [Mass/Vol] 244 mg/dL Critically high 74-106 [facility] Comment on above: Performed By: #### L IPA, CMP, CK, HSTROPN #### [facility] [address] [address] [address] Frank Nugent Potassium [Moles/Vol] 3.7 mmol/L Normal 3.5-5.1 [facility] Comment on above: Performed By: #### L IPA, CMP, CK, HSTROPN #### [facility] [address] [address] [address] Frank Nugent Protein [Mass/Vol] 8.0 g/dL Normal 6.4-8.2 [facility] Comment on above: Performed By: #### L IPA, CMP, CK, HSTROPN #### [facility] [address] [address] [address] Frank Nugent Sodium [Moles/Vol] 135 mmol/L Critically low 136-145 Th [facility] Comment on above: Performed By: #### L IPA, CMP, CK, HSTROPN #### [facility] [address] [address] [address] Frank Nugent Urea nitrogen [Mass/Vol] 19.0 mg/dL Critically high 7.0-18.0 [facility] Comment on above: Performed By: #### L IPA, CMP, CK, HSTROPN #### [facility] [address] [place] [address] Dr. Frank Nugent Urea nitrogen/Creatinine [Mass ratio] 14.5 mg/mg Normal [facility] Comment on above: Performed By: #### L IPA, CMP, CK, HSTROPN #### [facility] [address] [place] [address] Dr. Frank Nugent PROTIMEon 09-13-2022 INR Coag (PPP) [Relative time] 0.97 {INR} Normal [facility] Comment on above: Performed By: #### L IPA, CMP, CK, HSTROPN #### [facility] [address] [place] [address] Dr. Frank Nugent INR GUIDELINES SEE BELOW Normal [facility] Comment on above: Result Comment: GHASSAN RED INR: 2.0 - 3.0 CONDITIONS NOT LISTED BELOW 2.5 - 3.5 FOR PROSTHETIC HEART VALVE REPLACEMENT 2.5 - 3.5 RECURRENT THROMBOSIS Performed By: #### L IPA, CMP, CK, HSTROPN #### [facility] [address] [place] [address] Dr. Frank Nugent PT Coag (PPP) [Time] 10.3 s Normal 9.0-11.6 [facility] Comment on above: Performed By: #### L IPA, CMP, CK, HSTROPN #### [facility] [address] [place] [address] Dr. Frank Nugent SYMPTOMATIC COVID-19 ANTIGEN on 09-13-2022 EUA Statement SEE BELOW Normal [facility] Comment on above: Result Comment: This test [...] #### L IPA, CMP, CK, HSTROPN #### [facility] [address] [place] [address] Dr. Frank Nugent SARS-CoV-2 (COVID-19) RNA JABIER+probe Ql (Unsp spec) Negative Normal NEGATIVE [facility] Comment on above: Performed By: #### L IPA, CMP, CK, HSTROPN #### [facility] [address] [place] [address] Dr. Frank Nugent TROPONIN, HIGH SENSITIVITYon 09-13-2022 HSTROP 5.4 pg/mL Normal 4.0-76.1 [facility] Comment on above: Result Comment: CUT- OFF POINTS HAVE BEEN ESTABLISHED BASED ON THE FOURTH UNIVERSAL DEFINITIONS OF MYOCARDIAL INFARCTION. THE UPPER REFERENCE LIMIT (URL) OF TROPONIN, DEFINED THE 99TH PERCENTILE OF cTnI DISTRIBUTION IN A REFERENCE POPULATION, HAS BEEN CONFIRMED THE DECISION THRESHOLD FOR MS DIAGNOSIS. Performed By: #### L IPA, CMP, CK, HSTROPN #### [facility] [address] [place] [address] Dr. Frank Nugent URINE MICROSCOPIC ONLYon BACTERIA SMALL Abnormal NONE SEEN [facility] Comment on above: Performed By: #### L IPA, CMP, CK, HSTROPN #### [facility] [address] [place] [address] Dr. Frank Nugent Bacteria identified Cx Nom (U) INDICATED Normal [facility] Comment on above: Performed By: #### L IPA, CMP, CK, HSTROPN #### [facility] [address] [place] [address] Dr. Frank Nugent CAST NONE SEEN Normal NONE SEEN [facility] Comment on above: Performed By: #### L IPA, CMP, CK, HSTROPN #### [facility] [address] [place] [address] Dr. Frank Nugent Crystals LM Nom (Urine sed) NONE SEEN Normal NONE SEEN [facility] Comment on above: Performed By: #### L IPA, CMP, CK, HSTROPN #### [facility] [address] [place] [address] Dr. Frank Nugent Epithelial cells LM Ql (Urine sed) FEW Abnormal NONE SEEN /RARE [facility] Comment on above: Performed By: #### L IPA, CMP, CK, HSTROPN #### [facility] [address] [address] [address] Frank Nugent MUCOUS NONE SEEN Normal NONE SEEN [facility] Comment on above: Performed By: #### L IPA, CMP, CK, HSTROPN #### [facility] [address] [address] [address] Frank Nugent RBC 2-5 Abnormal 0-2 [facility] Comment on above: Performed By: #### L IPA, CMP, CK, HSTROPN #### [facility] [address] [address] [address] Frank Nugent WBC 5-10 Abnormal NONE SEEN [facility] Comment on above: Performed By: #### L IPA, CMP, CK, HSTROPN #### [facility] [address] [address] [address] Frank Nugent XR CHEST 1 Von 09-13-2022 XR CHEST 1 V EXAMINATION: XR CHES T 1 V, 09/13/2022 12:46 PM EDT HISTORY: [...] YURY FERNANDEZ Date: 2022-09-13 13:36 Normal [facility] INSULINon 08-12-2022 Insulin 73.3 uIU/mL Critically high 2.6-24.9 [facility] Comment on above: Performed By: #### L IPA, CMP, CK, HSTROPN #### [facility] [address] [address] [address] Frank Nugent BNPon 08-10-2022 Natriuretic peptide B (Bld) [Mass/Vol] 48.0 pg/mL Normal <=900.0 [facility] Comment on above: Performed By: #### L IPA, CMP, CK, HSTROPN #### [facility] [address] [place] [address] Dr. Frank Nugent CBC AUTO DIFFon 08-10-2022 BASO # 0.0 103/ul Normal 0.0-0.1 [facility] Comment on above: Performed By: #### C BC #### [facility] [address] [place] [address] Dr. Frank Nguent Basophils/100 WBC (Bld) 0.3 % Normal 0.2-2.0 [facility] Comment on above: Performed By: #### C BC #### [facility] [address] [place] [address] Dr. Frank Nugent EO # 0.2 103/ul Normal 0.0-0.7 [facility] Comment on above: Performed By: #### C BC #### [facility] [address] [place] [address] Dr. Frank Nugent Eosinophils/100 WBC (Bld) 4.9 % Normal 0.9-7.0 [facility] Comment on above: Performed By: #### C BC #### [facility] [address] [place] [address] Dr. Frank Nugent Erythrocyte distribution width (RBC) [Ratio] 12.8 % Normal 11.0-15.0 [facility] Comment on above: Performed By: #### C BC #### [facility] [address] [place] [address] Dr. Frank Nugent Hematocrit (Bld) [Volume fraction] 43.8 % Normal 42.0-54.0 [facility] Comment on above: Performed By: #### C BC #### [facility] [address] [place] [address] Dr. Frank Nugent Hemoglobin (Bld) [Mass/Vol] 15.4 g/dL Normal 14.0-18.0 [facility] Comment on above: Performed By: #### C BC #### [facility] [address] [place] [address] Dr. Frank Nugent IG # 0.00 10e3/ul Normal 0.00-0.03 [facility] Comment on above: Performed By: #### C BC #### [facility] [address] [place] [address] Dr. Frank Nugent IG % 0.0 % Normal 0.0-0.5 [facility] Comment on above: Performed By: #### C BC #### [facility] [address] [place] [address] Dr. Frank Nugent LYMPH # 0.8 103/ul Critically low 1.2-3.8 [facility] Comment on above: Performed By: #### C BC #### [facility] [address] [place] [address] Dr. Frank Nugent Lymphocytes/100 WBC (Bld) 23.9 % Normal 20.5-60.0 [facility] Comment on above: Performed By: #### C BC #### [facility] [address] [place] [address] Dr. Frank Nugent MANUAL DIFF REQ NO Normal [facility] Comment on above: Performed By: #### C BC #### [facility] [address] [place] [address] Dr. Frank Nugent MCH (RBC) [Entitic mass] 30.0 pg Normal 25.9-34.0 [facility] Comment on above: Performed By: #### C BC #### [facility] [address] [place] [address] Dr. Frank Nugent MCHC (RBC) [Mass/Vol] 35.2 g/dL Normal 29.9-35.2 [facility] Comment on above: Performed By: #### C BC #### [facility] [address] [place] [address] Dr. Frank Nugent MCV (RBC) [Entitic vol] 85.2 fL Normal 80.0-94.0 [facility] Comment on above: Performed By: #### C BC #### [facility] [address] [place] [address] Dr. Frank Nugent MONO # 0.4 103/ul Normal 0.3-0.8 [facility] Comment on above: Performed By: #### C BC #### [facility] [address] [address] [address] Frank Nugent Monocytes/100 WBC (Bld) 12.8 % Critically high 1.7-12.0 [facility] Comment on above: Performed By: #### C BC #### [facility] [address] [place] [address] Dr. Frank Nugent NEUT # 1.9 103/ul Normal 1.4-6.5 [facility] Comment on above: Performed By: #### C BC #### [facility] [address] [place] [address] Dr. Frank Nugent Neutrophils/100 WBC (Bld) 58.1 % Normal 43.0-75.0 [facility] Comment on above: Performed By: #### C BC #### [facility] [address] [place] [address] Dr. Frank Nugent Platelet mean volume (Bld) [Entitic vol] 11.3 fL Normal 9.5-13.5 [facility] Comment on above: Performed By: #### C BC #### [facility] [address] [place] [address] Dr. Frank Nugent PLT 224 103/ul Normal 150-450 [facility] Comment on above: Performed By: #### C BC #### [facility] [address] [place] [address] Dr. Frank Nugent RBC 5.14 106/ul Normal 4.70-6.10 [facility] Comment on above: Performed By: #### C BC #### [facility] [address] [place] [address] Dr. Frank Nugent WBC 3.3 103/ul Critically low 4.0-11.0 [facility] Comment on above: Performed By: #### C BC #### [facility] [address] [place] [address] Dr. Frank Nugent FREE THYROXINE INDEX T7on FTI 2.63 Normal 1.30-4.50 [facility] Comment on above: Performed By: #### L IPA, CMP, CK, HSTROPN #### [facility] [address] [address] [address] Frank Nugent T3U 35.0 % Normal 33.0-40.0 [facility] Comment on above: Performed By: #### L IPA, CMP, CK, HSTROPN #### [facility] [address] [address] [address] Frank Nugent T4 [Mass/Vol] 7.50 ug/dL Normal 4.50-12.10 [facility] Comment on above: Performed By: #### L IPA, CMP, CK, HSTROPN #### [facility] [address] [place] [address] Dr. Frank Nugent GLYCOHEMOGLOBIN A1Con 2022 ADA RECOMMENDATION SEE BELOW Normal [facility] Comment on above: Result Comment: ADA RECOMMENDED LIMIT 4.0 - 6.0 ADA THERAPEUTIC TARGET < 7.0 ACTION SUGGESTED > 7.0 Performed By: #### A 1C #### [facility] [address] [address] [address] Frank Nugent Glucose [Mass/Vol] 169 mg/dL Normal [facility] Comment on above: Performed By: #### A 1C #### [facility] [address] [place] [address] Dr. Frank Nugent HbA1c (Bld) [Mass fraction] 7.5 % Critically high 4.5-6.2 [facility] Comment on above: Performed By: #### A 1C #### [facility] [address] [place] [address] Dr. Frank Nugent LIPID PROFILEon 08-10-2022 CHOL-HDL RATIO NORM SEE BELOW Normal [facility] Comment on above: Result Comment: 3.3 - 4.4 LOW RISK 4.4 - 7.1 AVERAGE RISK 7.1 - 11.0 MODERATE RISK >11.0 HIGH RISK Performed By: #### L IPA, CMP, CK, HSTROPN #### [facility] [address] [address] [address] Frank Nugent Cholesterol [Mass/Vol] 183 mg/dL Normal <=200 [facility] Comment on above: Performed By: #### L IPA, CMP, CK, HSTROPN #### [facility] [address] [address] [address] Frank Nugent Cholesterol in HDL [Mass/Vol] 29 mg/dL Critically low 40-60 [facility] Comment on above: Performed By: #### L IPA, CMP, CK, HSTROPN #### [facility] [address] [address] [address] Frank Nugent Cholesterol in LDL [Mass/Vol] 83.2 mg/dL Normal [facility] Comment on above: Performed By: #### L IPA, CMP, CK, HSTROPN #### [facility] [address] [address] [address] Frank Nugent Cholesterol.total/Ch olesterol in HDL [Mass ratio] 6.3 {ratio} Normal [facility] Comment on above: Performed By: #### L IPA, CMP, CK, HSTROPN #### [facility] [address] [address] [address] Frank Nugent HDL NORMAL > or = 60 mg/dl - LO W CARDIOVASCULAR RISK <40 mg/dl - HIGH CARDIOVASCULAR RISK Normal [facility] Comment on above: Performed By: #### L IPA, CMP, CK, HSTROPN #### [facility] [address] [address] [address] Frank Nugent LDL CALC NORMAL SEE BELOW Normal [facility] Comment on above: Result Comment: <100 mg/dl OPTIMAL 100 - 129 mg/dl NEAR OR ABOVE OPTIMAL 130 - 159 mg/dl BORDERLINE HIGH 160 - 189 mg/dl HIGH >190 mg/dl VERY HIGH Performed By: #### L IPA, CMP, CK, HSTROPN #### [facility] [address] [address] [address] Frank Nugent Triglyceride [Mass/Vol] 354 mg/dL Critically high <=150 [facility] Comment on above: Performed By: #### L IPA, CMP, CK, HSTROPN #### [facility] [address] [address] [address] Frank Nugent VLDL CALC 70.8 mg/dL Normal [facility] Comment on above: Performed By: #### L IPA, CMP, CK, HSTROPN #### [facility] [address] [address] [address] Frank Nugent PROF 14(COMP METB)on 023 Albumin [Mass/Vol] 4.4 g/dL Normal 3.4-5.0 [facility] Comment on above: Performed By: #### L IPA, CMP, CK, HSTROPN #### [facility] [address] [place] [address] Dr. Frank Nugent Albumin/Globulin [Mass ratio] 1.2 {ratio} Normal [facility] Comment on above: Performed By: #### L IPA, CMP, CK, HSTROPN #### [facility] [address] [address] [address] Frank Nugent ALP [Catalytic activity/Vol] 81 U/L Normal 46-116 [facility] Comment on above: Performed By: #### L IPA, CMP, CK, HSTROPN #### [facility] [address] [address] [address] Frank Nugent ALT [Catalytic activity/Vol] 102 U/L Critically high 16-63 [facility] Comment on above: Performed By: #### L IPA, CMP, CK, HSTROPN #### [facility] [address] [place] [address] Dr. Frank Nugent Anion gap [Moles/Vol] 14.6 mmol/L Normal [facility] Comment on above: Performed By: #### L IPA, CMP, CK, HSTROPN #### [facility] [address] [place] [address] Dr. Frank Nugent AST [Catalytic activity/Vol] 55 U/L Critically high 15-37 [facility] Comment on above: Performed By: #### L IPA, CMP, CK, HSTROPN #### [facility] [address] [address] [address] Frank Nugent Bilirubin [Mass/Vol] 1.0 mg/dL Normal 0.2-1.0 [facility] Comment on above: Performed By: #### L IPA, CMP, CK, HSTROPN #### [facility] [address] [address] [address] Frank Nugent Calcium [Mass/Vol] 9.5 mg/dL Normal 8.5-10.1 [facility] Comment on above: Performed By: #### L IPA, CMP, CK, HSTROPN #### [facility] [address] [address] [address] Frank Nugent Chloride [Moles/Vol] 103 mmol/L Normal 98-107 [facility] Comment on above: Performed By: #### L IPA, CMP, CK, HSTROPN #### [facility] [address] [place] [address] Dr. Frank Nugent CO2 [Moles/Vol] 23.4 mmol/L Normal 21.0-32.0 [facility] Comment on above: Performed By: #### L IPA, CMP, CK, HSTROPN #### [facility] [address] [place] [address] Dr. Frank Nugent Creatinine [Mass/Vol] 0.88 mg/dL Normal 0.70-1.30 [facility] Comment on above: Performed By: #### L IPA, CMP, CK, HSTROPN #### [facility] [address] [address] [address] Frank Nugent EGFR-AF INDONESIAN >60 Normal >=60 [facility] Comment on above: Performed By: #### L IPA, CMP, CK, HSTROPN #### [facility] [address] [place] [address] Dr. Frank Nugent EGFR-NON AF INDONESIAN >60 Normal >=60 [facility] Comment on above: Performed By: #### L IPA, CMP, CK, HSTROPN #### [facility] [address] [place] [address] Dr. Frank Nugent Globulin (S) [Mass/Vol] 3.6 g/dL Normal [facility] Comment on above: Performed By: #### L IPA, CMP, CK, HSTROPN #### [facility] [address] [address] [address] Frank Nugent Glucose [Mass/Vol] 164 mg/dL Critically high 74-106 [facility] Comment on above: Performed By: #### L IPA, CMP, CK, HSTROPN #### [facility] [address] [address] [address] Frank Nugent Potassium [Moles/Vol] 4.0 mmol/L Normal 3.5-5.1 [facility] Comment on above: Performed By: #### L IPA, CMP, CK, HSTROPN #### [facility] [address] [place] [address] Dr. Frank Nugent Protein [Mass/Vol] 8.0 g/dL Normal 6.4-8.2 [facility] Comment on above: Performed By: #### L IPA, CMP, CK, HSTROPN #### [facility] [address] [place] [address] Dr. Frank Nugent Sodium [Moles/Vol] 137 mmol/L Normal 136-145 [facility] Comment on above: Performed By: #### L IPA, CMP, CK, HSTROPN #### [facility] [address] [place] [address] Dr. Frank Nugent Urea nitrogen [Mass/Vol] 16.0 mg/dL Normal 7.0-18.0 [facility] Comment on above: Performed By: #### L IPA, CMP, CK, HSTROPN #### [facility] [address] [address] [address] Frank Nguent Urea nitrogen/Creatinine [Mass ratio] 18.2 mg/mg Normal [facility] Comment on above: Performed By: #### L IPA, CMP, CK, HSTROPN #### [facility] [address] [address] [address] Frank Nugent TSHon 08-10-2022 TSH 0.879 uIU/mL Normal 0.358-3.740 [facility] Comment on above: Performed By: #### L IPA, CMP, CK, HSTROPN #### [facility] [address] [address] [address] Frank Nugent URIC ACID SERUMon 08-10-2022 Urate [Mass/Vol] 5.1 mg/dL Normal 3.5-7.2 [facility] Comment on above: Performed By: #### L IPA, CMP, CK, HSTROPN #### [facility] [address] [address] [address] Frank Nugent VITAMIN D 25 OHon 08-10-2022 VIT D 25-OH 12.1 ng/mL Normal [facility] Comment on above: Performed By: #### P SASC, VITAD #### [facility] [address] [place] [address] Dr. Frank Nugent VIT D RANGES SEE BELOW Normal [facility] Comment on above: Result Comment: <20 ng/mL Vit D deficient 20 - <30 ng/mL Vit D insufficient 30 - 100 ng/mL Vit D sufficient >100 ng/mL Potential Toxicity Performed By: #### P SASC, VITAD #### [facility] [address] [address] [address] Frank Nugent Urinalysison 04-25-2021 Appearance (U) Clear Normal Clear [facility] Comment on above: Order Comment: Name Collection Type:: Clean-Voided Midstream Performed By: #### U A #### [address] Bilirubin,Urine Negative Normal Negative [facility] Comment on above: Order Comment: Name Collection Type:: Clean-Voided Midstream Performed By: #### U A #### [facility] [address] Color (U) Yellow Normal Yellow [facility] Comment on above: Order Comment: Name Collection Type:: Clean-Voided Midstream Performed By: #### U A #### [facility] [address] [place] [address] [place] Glucose Ql (U) Normal Normal Normal [facility] Comment on above: Order Comment: Name Collection Type:: Clean-Voided Midstream Performed By: #### U A #### [address] Ketones Ql (U) Negative Normal Negative [facility] Comment on above: Order Comment: Name Collection Type:: Clean-Voided Midstream Performed By: #### U A #### [address] Leukocyte esterase Test strip Ql (U) Negative Normal Negative [facility] Comment on above: Order Comment: Name Collection Type:: Clean-Voided Midstream Performed By: #### U A #### [address] Nitrite,Urine Negative Normal Negative [facility] Comment on above: Order Comment: Name Collection Type:: Clean-Voided Midstream Performed By: #### U A #### [address] Occult Blood,Urine Negative Normal Negative [facility] Comment on above: Order Comment: Name Collection Type:: Clean-Voided Midstream Result Comment: PERF ORMED BY: [place] [address] PATHOLOGIST TRANSCRIBER HARESH LUI M.D. Performed By: #### U A #### [address] pH (U) 6.0 [pH] Normal 5.0-9.0 [facility] Comment on above: Order Comment: Name Collection Type:: Clean-Voided Midstream Performed By: #### U A #### [address] Protein,Urine Negative Normal Negative [facility] Comment on above: Order Comment: Name Collection Type:: Clean-Voided Midstream Performed By: #### U A #### [address] Specificy [place],Urine 1.018 Normal 1.001-1.030 [facility] Comment on above: Order Comment: Name Collection Type:: Clean-Voided Midstream Performed By: #### U A #### [facility] [address] [place] [address] Urobilinogen,Urine Normal Normal Normal [facility] Comment on above: Order Comment: Name Collection Type:: Clean-Voided Midstream Performed By: #### U A #### [facility] [address] [place] [address] XR chest 1V portableon 04-25 XR chest 1V portable [facility] [place] [address] [place] [address] XRay Report Signed Patient: Jerry Wilson MR#: [id number] : 1970 Acct:[id number] Age/Sex: 50 / M ADM Date: 04/24/21 Loc: ER Room: Type: [facility] ER Attending Dr: Ordering Provider: Nitesh [...] Daphne Hutchinson M.D.04/25/2021 7:58 AM Dictation Location: [place] [address] Transcribed By: [facility] 04/25/21 075 Dictated By: Daphne Hutchinson MD 04/25/21 075 Signed By: 04/25/21 0758 Normal [facility] B-Type Natriuretic Peptideon 04-24-2021 Natriuretic peptide B (Bld) [Mass/Vol] 20.0 pg/mL Normal 5-100 [facility] Comment on above: Result Comment: PERF ORMED BY: [address] [place] [address] PATHOLOGIST TRANSCRIBER HARESH LUI M.D. Performed By: #### H S TROP, CMP, CBC, BNP, MG #### [facility] [address] COVID-19 Antigenon 1 COVID-19 Antigen Results called at 2336 on [...] its performance Adolfo Disclaimer characteristic determined by morphCARD and Adolfo Disclaimer validated at [facility]. This Adolfo Disclaimer test has not [...] is terminated or revoked sooner. PERFORMED BY: [place] [address] PATHOLOGIST TRANSCRIBER HARESH LUI M.D. Normal [facility] Comment on above: Performed By: #### C OVID-19 ADOLFO, SOFIAPOS #### [address] Complete Blood Count Auto Di ffon 04-24-2021 Basophils (Bld) [#/Vol] 0.0 10*3/uL Normal 0.0-0.2 [facility] Comment on above: Result Comment: PERF ORMED BY: [place] [address] PATHOLOGIST TRANSCRIBER HARESH LUI M.D. Performed By: #### H S TROP, CMP, CBC, BNP, MG #### [address] Basophils/100 WBC (Bld) 0.7 % Normal . [facility] Comment on above: Performed By: #### H S TROP, CMP, CBC, BNP, MG #### [address] Eosinophils (Bld) [#/Vol] 0.1 10*3/uL Normal 0.0-0.45 [facility] Comment on above: Performed By: #### H S TROP, CMP, CBC, BNP, MG #### [address] Eosinophils/100 WBC (Bld) 1.8 % Normal . [facility] Comment on above: Performed By: #### H S TROP, CMP, CBC, BNP, MG #### [address] Erythrocyte distribution width (RBC) [Ratio] 12.9 % Normal 12.0-14.8 [facility] Comment on above: Performed By: #### H S TROP, CMP, CBC, BNP, MG #### [address] Hematocrit (Bld) [Volume fraction] 43.7 % Normal 38.8-50.0 [facility] Comment on above: Performed By: #### H S TROP, CMP, CBC, BNP, MG #### [address] Hemoglobin (Bld) [Mass/Vol] 15.0 g/dL Normal 13.0-17.0 [facility] Comment on above: Performed By: #### H S TROP, CMP, CBC, BNP, MG #### [address] Lymphocytes (Bld) [#/Vol] 0.7 10*3/uL Low 1.00-4.8 [facility] Comment on above: Performed By: #### H S TROP, CMP, CBC, BNP, MG #### [address] Lymphocytes/100 WBC (Bld) 14.0 % Normal . [facility] Comment on above: Performed By: #### H S TROP, CMP, CBC, BNP, MG #### [address] MCH (RBC) [Entitic mass] 29.7 pg Normal 27.5-35.2 [facility] Comment on above: Performed By: #### H S TROP, CMP, CBC, BNP, MG #### [address] MCV (RBC) [Entitic vol] 86.4 fL Normal 83.5-101 [facility] Comment on above: Performed By: #### H S TROP, CMP, CBC, BNP, MG #### [address] Mean Corpuscular HGB Conc 34.4 g/dL Normal 32.5-35.6 [facility] Comment on above: Performed By: #### H S TROP, CMP, CBC, BNP, MG #### [address] Monocytes (Bld) [#/Vol] 1.1 10*3/uL High 0.0-0.8 [facility] Comment on above: Performed By: #### H S TROP, CMP, CBC, BNP, MG #### [address] Monocytes/100 WBC (Bld) 21.3 % Normal . [facility] Comment on above: Performed By: #### H S TROP, CMP, CBC, BNP, MG #### [address] Neutrophils (Bld) [#/Vol] 3.2 10*3/uL Normal 1.8-7.7 [facility] Comment on above: Performed By: #### H S TROP, CMP, CBC, BNP, MG #### [address] Neutrophils/100 WBC (Bld) 62.2 % Normal . [facility] Comment on above: Performed By: #### H S TROP, CMP, CBC, BNP, MG #### [place] [address] [place] Nucleated RBC/100 WBC (Bld) [Ratio] 0.2 % Normal 0-0.5 [facility] Comment on above: Performed By: #### H S TROP, CMP, CBC, BNP, MG #### [address] Platelet mean volume (Bld) [Entitic vol] 9.6 fL Normal 6.6-10.1 [facility] Comment on above: Performed By: #### H S TROP, CMP, CBC, BNP, MG #### [facility] [address] [place] [address] Platelets (Bld) [#/Vol] 201 10*3/uL Normal 150-450 [facility] Comment on above: Performed By: #### H S TROP, CMP, CBC, BNP, MG #### [address] RBC (Bld) [#/Vol] 5.06 10*6/uL Normal 3.90-5.60 [facility] Comment on above: Performed By: #### H S TROP, CMP, CBC, BNP, MG #### [address] WBC (Bld) [#/Vol] 5.2 10*3/uL Normal 4.5-11.0 [facility] Comment on above: Performed By: #### H S TROP, CMP, CBC, BNP, MG #### [address] Comprehensive Metabolic Pane alan 04-24-2021 Albumin [Mass/Vol] 4.2 g/dL Normal 3.2-5.5 [facility] Comment on above: Performed By: #### H S TROP, CMP, CBC, BNP, MG #### [address] Albumin/Globulin [Mass ratio] 1.3 {ratio} Normal [facility] Comment on above: Performed By: #### H S TROP, CMP, CBC, BNP, MG #### [address] ALP [Catalytic activity/Vol] 55 U/L Normal 32-92 [facility] Comment on above: Performed By: #### H S TROP, CMP, CBC, BNP, MG #### [address] ALT [Catalytic activity/Vol] 85 U/L High 10-60 [facility] Comment on above: Performed By: #### H S TROP, CMP, CBC, BNP, MG #### [facility] [address] [place] [address] AST [Catalytic activity/Vol] 82 U/L High 10-42 [facility] Comment on above: Performed By: #### H S TROP, CMP, CBC, BNP, MG #### [facility] [address] [place] [address] Bilirubin [Mass/Vol] 1.1 mg/dL Normal 0.3-1.2 [facility] Comment on above: Performed By: #### H S TROP, CMP, CBC, BNP, MG #### [address] Calcium [Mass/Vol] 9.6 mg/dL Normal 8.2-10.2 [facility] Comment on above: Performed By: #### H S TROP, CMP, CBC, BNP, MG #### [address] Chloride [Moles/Vol] 103 mmol/L Normal 95-114 [facility] Comment on above: Performed By: #### H S TROP, CMP, CBC, BNP, MG #### [address] CO2 [Moles/Vol] 21.2 mmol/L Low 22.0-30.[address] [facility] Comment on above: Performed By: #### H S TROP, CMP, CBC, BNP, MG #### [address] Creatinine [Mass/Vol] 1.16 mg/dL Normal 0.64-1.27 [facility] Comment on above: Performed By: #### H S TROP, CMP, CBC, BNP, MG #### [address] Creatinine Clr Calc Pharmacy 118.79 Normal [facility] Comment on above: Performed By: #### H S TROP, CMP, CBC, BNP, MG #### [address] Estimated GFR ( Stacey > 60 Normal [facility] Comment on above: Result Comment: GFR estimated reference range: According to KDOQI guidelines, <60 ml/min/1.73m2 is sufficient to diagnose a patient with chronic kidney disease. Performed By: #### H S TROP, CMP, CBC, BNP, MG #### [facility] [address] Estimated GFR (Non- Am > 60 Normal [facility] Comment on above: Performed By: #### H S TROP, CMP, CBC, BNP, MG #### [facility] [address] Globulin (S) [Mass/Vol] 3.2 g/dL Normal [facility] Comment on above: Performed By: #### H S TROP, CMP, CBC, BNP, MG #### [address] Glucose [Mass/Vol] 144 mg/dL High 70-100 [facility] Comment on above: Result Comment: [place] Glucose Reference Range is dependent on time and content of last meal. Glucose of more than 200 mg/dL in a nonstressed, ambulatory subject supports the diagnosis of Diabetes Mellitus. ADA recommended reference range Performed By: #### H S TROP, CMP, CBC, BNP, MG #### [facility] [address] Potassium [Moles/Vol] 4.0 mmol/L Normal 3.5-5.1 [facility] Comment on above: Performed By: #### H S TROP, CMP, CBC, BNP, MG #### [address] Protein [Mass/Vol] 7.4 g/dL Normal 6.1-7.9 [facility] Comment on above: Performed By: #### H S TROP, CMP, CBC, BNP, MG #### [facility] [address] Sodium [Moles/Vol] 135 mmol/L Low 136-146 [facility] Comment on above: Performed By: #### H S TROP, CMP, CBC, BNP, MG #### [facility] [address] Urea nitrogen [Mass/Vol] 20 mg/dL Normal 9- [facility] Comment on above: Performed By: #### H S TROP, CMP, CBC, BNP, MG #### [facility] [address] [place] [address] ECG 12 lead ECGon 04-24-2021 ECG 12 lead ECG [facility] [place] [address] [place] [address] Electrocardiograph Report Signed Patient: Jerry Wilson MR#: [id number] : 1970 Acct:[id number] Age/Sex: 50 / M ADM Date: 04/24/21 Loc: ER Room: Type: [facility] ER Attending Dr: Ordering Provider: Nitesh Sanches [...] sinus rhythm Confirmed by Nitesh SANCHES DO ([id number]) on 04/25/2021 12:42:23 AM Referred By: Electronically Signed By:Nitesh SANCHES DO Transcribed By: MUS Signed By Nitesh Sanches DO 1 06/26/20 0042 Normal [facility] Magnesiumon 04-24-2021 Magnesium [Mass/Vol] 1.9 mg/dL Normal 1.6-2.6 [facility] Comment on above: Result Comment: PERF ORMED BY: [place] [address] PATHOLOGIST TRANSCRIBER HARESH LUI M.D. Performed By: #### H S TROP, CMP, CBC, BNP, MG #### [facility] [address] [place], [place] [id number] [place] Partial Thromboplastin Timeo n 04-24-2021 aPTT Coag (Bld) [Time] 29.3 s Normal 25.1-36.5 [facility] Comment on above: Result Comment: PERF ORMED BY: [place] [address] PATHOLOGIST TRANSCRIBER HARESH LUI M.D. Performed By: #### P TT, PT #### [facility] [address] [place] [address] Prothrombin Time INRon 04-24 INR Coag (PPP) [Relative time] 1.0 {INR} Normal [facility] Comment on above: Result Comment: INR [...] Performed By: #### P TT, PT #### [address] PT Coag (PPP) [Time] 11.5 s Normal 9.0-12.9 [facility] Comment on above: Performed By: #### P TT, PT #### [address] Adolfo Ag Positiveon 04-24-20 21 Adolfo Ag Positive Positive Critically abnormal Negative [facility] Comment on above: Result Comment: This is a duplicate Adolfo SARS Antigen (KOKO) result to be used for statistical tracking purpose only. PERFORMED BY: [place] [address] PATHOLOGIST TRANSCRIBER HARESH LUI M.D. Performed By: #### C OVID-19 ADOLFO, SOFIAPOS #### [address] Troponin I High Sensitivityo n 04-24-2021 Troponin I High Sensitivity 4 pg/mL Normal 0-20 [facility] Comment on above: Result Comment: PERF ORMED BY: [place] [address] PATHOLOGIST TRANSCRIBER HARESH LUI M.D. Performed By: #### H S TROP, CMP, CBC, BNP, MG #### [facility] [address] [place] [id number] [facility] Follow Up (Pulmonary Medicin e)on 01-12-2021 Follow Up (Pulmonary Medicine) Diagnoses/Problems Dyspnea on exertion (786.09) (R06.00) Sarcoidosis (135) (D86.9) CLEM on CPAP (327.23,V46.8) (G47.33,Z99.89) Orders Cardiopulmonary Stress Test (Met Stress Test); Status:Hold For - Scheduling; Requested for:[id number]; Perform:[facility] ([facility]); Due:[id number];Ordered ; For:Dyspnea on exertion; Ordered By:Carter Kruse; Patient [...] Dr. Camacho Other: Dr. Adan (pulmonary in [place]) HPI: 11/22/2020: At baseline, he had no [...] He was started on prednisone by his hotel operations manager in July. He initially felt slightly improved but shortly started worsening again. 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 Has known exposure to asbestos, silica or beryllium CTD evaluation: No hx of joint pain/swelling, skin rashes, Raynaud's, sicca syndrome, eye redness, muscle pain and weakness, difficulty swallowing. Family History: No family history of lung diseases or cancer Imaging history: (I have personally reviewed the imaging below) 12/15/2020 HRC (more content not included)... Normal [facility] Tobacco Screening.on Fall risk assessment a) No falls within the last year [facility] Work Phone: Tobacco use status CPHS b) No [facility] Work Phone: CALCIUM,URINE 24HRon 021 CALCIUM, URINE 27.5 mg/dL Normal Not Established [facility] Comment on above: Performed By: #### T SPOT #### [facility] [address] [place] [address] CALCIUM,URINE 24HR 690 mg/24h High 100 - 300 [facility] Comment on above: Performed By: #### T SPOT #### [facility] [address] [place] [address] CREATININE, 24HR 2.81 g/24h High 0.87 - 2.41 [facility] Comment on above: Performed By: #### T SPOT #### [facility] [address] [place] [address] CREATININE, URINE 111.9 mg/dL Normal 20.0 - 370.0 [facility] Comment on above: Performed By: #### T SPOT #### [facility] [address] [place] [address] COLLECTION PERIOD 24 hrs Normal [facility] Comment on above: Performed By: #### T SPOT #### [facility] [address] [place] [address] URINE VOLUME [address] [facility] Comment on above: Performed By: #### T SPOT #### [facility] [address] [place] [address] CT CHEST WO CONTRASTon 12-15 CT CHEST WO CONTRAST Patient Name: JERRY WILSON STUDY: CT CHEST WO CONTRAST; 12/15/2020 3:31 pm INDICATION: dyspnea on exertion. COMPARISON: 05/04/2020 CT chest without contrast ACCESSION NUMBER(S): [id number] ORDERING CLINICIAN: CARTER KRUSE TECHNIQUE: Helical data [...] as stated. This study was interpreted at [facility], [place], [place]. Electronically signed by: YAMILKA MICHELLE MD Normal [facility] Echocardiogramon 12-15-2020 Echocardiography [facility], [address] [place] [address] and TRANSTHORACIC ECHOCARDIOGRAM REPORT Patient Name: JERRY WILSON Anum Physician: [id number] Russ Villarreal MD Study Date: 12/15/2020 Referring Physician: CARTER KRUSE MRN/PID: [id number] PCP: Accession/Order#: [id number] Department Location: [facility] Date of : 1970 Fellow: Gender: M Nurse: Admit Date: Community Affairs Manager: Bradley Webb [facility] Admission Status: Outpatient Additional Staff: Height: 177.80 cm CC Report to: Weight: 166.01 kg Study Type: Echocardiogram BSA: 2.70 m2 Diagnosis/ICD: J84.9-Interstitial lung disease Indication: Ilerstitial lung disease, Dyspnea on exertion, Sarcoidosis Procedure/CPT: Echo Complete w Full Doppler-[id number] Patient History: Pertinent History: Sarcoidosis, Dyspnea on [...] LA Area A2C: 27.8 cm2 LA [place] A4C: 6.7 cm LA [place] A2C: 6.9 cm LA Vol A4C: 68.9 [...] Jace: 1.19 PulmV Sys Jace: 72.08 cm/s [id number] Russ Villarreal MD Electronically signed on 12/17/2020 at 10:27:[address] [facility] No Panel Informationon 12-15 [email or web address]?[email or web address] ByDateTime?PatientID= [id number]&Date=2020&Time=13%3a21%3a3 0%3a00&TestType=ECG&S ite=1&OutputType=PDF& Ext=PDF [facility] Work Phone: [phone] Normal sinus rhythm [facility] Work Phone: [phone] Normal [facility] Work Phone: [phone] [facility] Work Phone: [phone] [facility] Work Phone: [phone] [facility] Work Phone: [phone] [facility] Work Phone: [phone] [facility] Work Phone: [phone] [facility] Work Phone: [phone] [facility] Work Phone: [phone] [facility] Work Phone: [phone] [facility] Work Phone: [phone] [facility] Work Phone: [phone] [facility] Work Phone: [phone] [facility] Work Phone: [phone] [facility] Work Phone: [phone] [facility] Work Phone: T-SPOT TBon 11-28-2020 NIL[NEG]CONTROL SPOT COUNT Passed Normal [facility] Comment on above: Performed By: #### T SPOT #### [facility] [address] [place] [address] PANEL A SPOT COUNT 0 Normal [facility] Comment on above: Performed By: #### T SPOT #### [facility] [address] [place] [address] PANEL B SPOT COUNT 0 Normal [facility] Comment on above: Performed By: #### T SPOT #### [facility] [address] [place] [address] POS CONTROL SPOT COUNT Passed Normal [facility] Comment on above: Performed By: #### T SPOT #### [facility] [address] [place] [address] T-SPOT.TB INTERP Negative Normal Normal Valu e: Negative [facility] Comment on above: Result Comment: A [...] test. Performed By: #### T SPOT #### [facility] [address] [place] [address] VITAMIN D 1,25-DIHYDROXYon 0 11-25-2020 VITAMIN D 1,25-DIHYDROXY 116.0 pg/mL High 19.9-79.3 [facility] Comment on above: Result Comment: INTE RPRETIVE INFORMATION: Vitamin D, 1,25-Dihydroxy This test is primarily indicated during patient evaluation for hypercalcemia and renal failure. A normal result does not rule out Vitamin D deficiency. The recommended test for diagnosing Vitamin D deficiency is Vitamin D 25-hydroxy. Performed By: [employer] [address] [place] [id number] Girl Friday: Rebecca Johnson MD Performed By: #### T SPOT #### [facility] [address] [place] [address] MISCELLANEOUS TESTon 021 MISCELLANEOUS Canceled Normal [facility] Comment on above: Order Comment: TEST MISCELLANEOUS TEST WAS CANCELLED, 11/23/2020 08:22 QNS, PLEASE RESUBMIT.. Performed By: #### M ISC1 #### GENERAL SENDOUT NAME OF SEND OUT TEST Canceled Normal [facility] Comment on above: Order Comment: TEST MISCELLANEOUS TEST WAS CANCELLED, 11/23/2020 08:22 QNS, PLEASE RESUBMIT.. Performed By: #### M ISC1 #### GENERAL SENDOUT CBC AND DIFFERENTIALon 11-22 % AUTOMATED IMMATURE GRAN 0.8 % Normal 0.0 - 0.9 [facility] Comment on above: Result Comment: Ambika ture Granulocyte Count (IG) includes promyelocytes, myelocytes and metamyelocytes but does not include bands. Percent differential counts (%) should be interpreted in the context of the absolute cell counts (cells/L). Performed By: #### T SPOT #### [facility] [address] [place] [address] Basophils (Bld) [#/Vol] 0.01 10*3/uL Normal 0.00 - 0.10 [facility] Comment on above: Performed By: #### T SPOT #### [facility] [address] [place] [address] Basophils/100 WBC (Bld) 0.1 % Normal 0.0 - 2.0 [facility] Comment on above: Performed By: #### T SPOT #### [facility] [address] [place] [address] Eosinophils (Bld) [#/Vol] 0.02 10*3/uL Normal 0.00 - 0.70 [facility] Comment on above: Performed By: #### T SPOT #### [facility] [address] [place] [address] Eosinophils/100 WBC (Bld) 0.2 % Normal 0.0 - 6.0 [facility] Comment on above: Performed By: #### T SPOT #### [facility] [address] [place] [address] Erythrocyte distribution width (RBC) [Ratio] 13.7 % Normal 11.5 - 14.5 [facility] Comment on above: Performed By: #### T SPOT #### [facility] [address] [place] [address] Hematocrit (Bld) [Volume fraction] 47.0 % Normal 41.0 - 52.0 [facility] Comment on above: Performed By: #### T SPOT #### [facility] [address] [place] [address] Hemoglobin (Bld) [Mass/Vol] 15.7 g/dL Normal 13.5 - 17.5 [facility] Comment on above: Performed By: #### T SPOT #### [facility] [address] [place] [address] Lymphocytes (Bld) [#/Vol] 0.59 10*3/uL Low 1.20 - 4.80 [facility] Comment on above: Performed By: #### T SPOT #### [facility] [address] [place] [address] Lymphocytes/100 WBC (Bld) 7.0 % Normal 13.0 - 44.0 [facility] Comment on above: Performed By: #### T SPOT #### [facility] [address] [place] [address] MCHC (RBC) [Mass/Vol] 33.4 g/dL Normal 32.0 - 36.0 [facility] Comment on above: Performed By: #### T SPOT #### [facility] [address] [place] [address] MCV (RBC) [Entitic vol] 91 fL Normal 80 - 100 [facility] Comment on above: Performed By: #### T SPOT #### [facility] [address] [place] [address] Monocytes (Bld) [#/Vol] 0.19 10*3/uL Normal 0.10 - 1.00 [facility] Comment on above: Performed By: #### T SPOT #### [facility] [address] [place] [address] Monocytes/100 WBC (Bld) 2.3 % Normal 2.0 - 10.0 [facility] Comment on above: Performed By: #### T SPOT #### [facility] [address] [place] [address] Neutrophils (Bld) [#/Vol] 7.54 10*3/uL Normal 1.20 - 7.70 [facility] Comment on above: Performed By: #### T SPOT #### [facility] [address] [place] [address] Neutrophils/100 WBC (Bld) 89.6 % Normal 40.0 - 80.0 [facility] Comment on above: Performed By: #### T SPOT #### [facility] [address] [place] [address] NUCLEATED RBC 0.0 /100 WBC Normal 0.0-0.0 [facility] Comment on above: Performed By: #### T SPOT #### [facility] [address] [place] [address] Platelets (Bld) [#/Vol] 222 10*3/uL Normal 150 - 450 [facility] Comment on above: Performed By: #### T SPOT #### [facility] [address] [place] [address] RBC 5.17 x10E12/L Normal 4.50 - 5.90 [facility] Comment on above: Performed By: #### T SPOT #### [facility] [address] [place] [address] WBC (Bld) [#/Vol] 8.4 10*3/uL Normal 4.4 - 11.3 [facility] Comment on above: Performed By: #### T SPOT #### [facility] [address] [place] [address] COMPREHENSIVE PANELon 2020 Albumin [Mass/Vol] 4.7 g/dL Normal 3.4 - 5.0 [facility] Comment on above: Performed By: #### T SPOT #### [facility] [address] [place] [address] ALP [Catalytic activity/Vol] 47 U/L Normal 33 - 120 [facility] Comment on above: Performed By: #### T SPOT #### [facility] [address] [place] [address] ALT [Catalytic activity/Vol] 59 U/L High 10 - 52 [facility] Comment on above: Result Comment: Latricia ents treated with Sulfasalazine may generate falsely decreased results for ALT. Performed By: #### T SPOT #### [facility] [address] [place] [address] Anion gap [Moles/Vol] 20 mmol/L Normal 10 - 20 [facility] Comment on above: Performed By: #### T SPOT #### [facility] [address] [place] [address] AST [Catalytic activity/Vol] 36 U/L Normal 9 - 39 [facility] Comment on above: Performed By: #### T SPOT #### [facility] [address] [place] [address] Bilirubin [Mass/Vol] 1.5 mg/dL High 0.0 - 1.2 [facility] Comment on above: Performed By: #### T SPOT #### [facility] [address] [place] [address] Calcium [Mass/Vol] 10.2 mg/dL Normal 8.6 - 10.6 [facility] Comment on above: Performed By: #### T SPOT #### [facility] [address] [place] [address] Chloride [Moles/Vol] 104 mmol/L Normal 98 - 107 [facility] Comment on above: Performed By: #### T SPOT #### [facility] [address] [place] [address] Creatinine [Mass/Vol] 1.17 mg/dL Normal 0.50 - 1.30 [facility] Comment on above: Performed By: #### T SPOT #### [facility] [address] [place] [address] GFR- AM. >60 Normal >60 [facility] Comment on above: Result Comment: CALC ULATIONS OF ESTIMATED GFR ARE PERFORMED USING THE MDRD STUDY EQUATION FOR THE IDMS-TRACEABLE CREATININE METHODS. CLIN CHEM 2007;53:766-72 Performed By: #### T SPOT #### [facility] [address] [place] [address] GFR-NON AM. >60 Normal >60 [facility] Comment on above: Performed By: #### T SPOT #### [facility] [address] [place] [address] Glucose [Mass/Vol] 168 mg/dL High 74 - 99 [facility] Comment on above: Performed By: #### T SPOT #### [facility] [address] [place] [address] HCO3 (Bld) [Moles/Vol] 21 mmol/L Normal 21 - 32 [facility] Comment on above: Performed By: #### T SPOT #### [facility] [address] [place] [address] Potassium [Moles/Vol] 4.5 mmol/L Normal 3.5 - 5.3 [facility] Comment on above: Performed By: #### T SPOT #### [facility] [address] [place] [address] Protein [Mass/Vol] 7.5 g/dL Normal 6.4 - 8.2 [facility] Comment on above: Performed By: #### T SPOT #### [facility] [address] [place] [address] Sodium [Moles/Vol] 140 mmol/L Normal 136 - 145 [facility] Comment on above: Performed By: #### T SPOT #### [facility] [address] [place] [address] Urea nitrogen [Mass/Vol] 24 mg/dL High 6 - 23 [facility] Comment on above: Performed By: #### T SPOT #### [facility] [address] [place] [address] Follow Up (Pulmonary Medicin e)on 11-22-2020 Follow Up (Pulmonary Medicine) Diagnoses/Problems Daily caffeine consumption Sarcoidosis (135) (D86.9) Mediastinal lymphadenopathy (785.6) (R59.0) Dyspnea on exertion (786.09) (R06.00) CLEM on CPAP (327.23,V46.8) (G47.33,Z99.89) Orders 6 Minute Walk Test; Status:Hold For - Scheduling; Requested for:22Nov2020; Perform:[facility]; Due:20Feb2021;Ordered ; For:ILD (interstitial lung disease); Ordered By:Carter Kruse; Calcium, Urine 24 Hour; Status:Active; Requested for:22Nov2020; Perform:[facility] Services - Lab To Draw (Non-Blood Test); Due:20Feb2021;Ordered ; For:ILD (interstitial lung disease); Ordered By:Carter Kruse; Complete Blood Count + Differential; Status:In Progress - Specimen/Data Collected; Done: 22Nov2020 Perform:[facility] Services - Lab To Draw (Blood Test); Due:20Feb2021;Ordered ; For:ILD (interstitial lung disease); Ordered By:Carter Kruse; Complete PFT w/o ABG; Status:Hold For - Scheduling; Requested for:22Nov2020; Perform:[facility]; Due:20Feb2021;Ordered ; For:ILD (interstitial lung disease); Ordered By:Carter Kruse; Comprehensive Metabolic Panel; Status:In Progress - Specimen/Data Collected; Done: 22Nov2020 Perform:Lab Services - Lab To Draw (Blood Test); Due:20Feb2021;Ordered ; For:ILD (interstitial lung disease); Ordered By:Carter Kruse; CT Chest without Contrast; Status:Active; Requested for:15Dec2020; Perform:[facility];Ordered; For:ILD (interstitial lung disease); Ordered By:Carter Kruse; Patient taking Metformin or Derivatives? : No Radiologist to Determine Optimal Study : Y What are the patient's signs and symptoms? : dyspnea on exertion Echocardiogram; Status:Hold For - Scheduling; Requested for:22Nov2020; Perform:[facility] ([facility]); Due:20Feb2021;Ordered ; For:ILD (interstitial lung disease); Ordered By:Carter Kruse; Electrocardiogram EKG; Status:Hold For - Scheduling; Requested for:22Nov2020; Perform:[facility] Dina Bullock 1800; Due:20Feb2021;Ordered ; For:ILD (interstitial lung disease); Ordered By:Carter Kruse; HIV 1/2 ANTIGEN/ANTIBODY SCREEN WITH REFLEX TO CONFIRMATION; Status:In Progress - Specimen/Data Collected; Done: [id number] Perform:[facility] Services - Lab To Draw (Blood Test); Due:20Feb2021;Ordered ; For:ILD (interstitial lung disease); Ordered By:Carter Kruse; MISCELLANEOUS TEST; Status:In Progress - Specimen/Data Collected; Done: [id number] Perform:Lab Services - Lab To Draw (Non-Blood Test); Order Comments:Beryllium lymphocyte proliferation test; Due:20Feb2021;Ordered ; For:ILD (interstitial lung disease); Ordered By:Carter Kruse; T-SPOT. TB; Status:In Progress - Specimen/Data Collected; Done: [id number] Perform:[facility] Services - Lab To Draw (Blood Test); Due:20Feb2021;Ordered ; For:ILD (interstitial lung disease); Ordered By:Carter Kruse; Urinalysis; Status:In Progress - Specimen/Data Collected; Done: [id number] Perform:[facility] - Lab To Draw (Non-Blood Test); Due:20Feb2021;Ordered ; For:ILD (interstitial lung disease); Ordered By:Carter Kruse; Vitamin D 25-Hydroxy; Status:In Progress - Specimen/Data Collected; Done: [id number] Perform:[facility] - Lab To Draw (Blood Test); Due:20Feb2021;Ordered ; For:ILD (interstitial lung disease); Ordered By:Carter Kruse; Vitamin-D 1,25-Dihydroxy, Level; Status:In Progress - Specimen/Data Collected; Done: [id number] Perform:[facility] - Lab To Draw (Blood Test); Due:20Feb2021;Ordered ; For:ILD (interstitial lung disease); Ordered By:Carter Kruse; [...] 3 TABLET Daily Vitals Vital Signs Recorded: [id number] 01:10PM Wkdafmesbzv30.8 F Heart Rate96 Baigxuen884 Ogpiszwhg27 Qkplze366 lb 14.4 oz Tobacco Useb) No Fall Screeninga) No falls within the last year O2 Aahalbjkzs39, RA Pain Scale0 Signatures Electronically signed by : Carter Kruse MD; Nov 22 2020 5:33PM EST (Author) Normal [facility] HIV 1/2 ANTIGEN/ANTIBODY SCR EEN WITH REFLEX TO CONFIRMATIONon 11-22-2020 HIV 1/2 AG/AB SCREEN Non-Reactive Normal NONREACTIVE [facility] Comment on above: Result Comment: HIV Ag/Ab screen is performed using the Siemens [employer] HIV Ag/Ab Combo assay which detects the presence of HIV p24 antigen as well as antibodies to HIV-1 (Group M and O) and HIV-2. . No laboratory evidence of HIV infection. If acute HIV infection is suspected, consider testing for HIV RNA by PCR (viral load). Performed By: #### T SPOT #### [facility] [address] [place] [address] Lab Specimen Source Normal [facility] Comment on above: Performed By: #### T SPOT #### [facility] [address] [place] [address] Initial Visit (Pulmonary Med icine)on 11-22-2020 Initial Visit (Pulmonary Medicine) Diagnoses/Problems Daily caffeine consumption Sarcoidosis (135) (D86.9) Mediastinal lymphadenopathy (785.6) (R59.0) Dyspnea on exertion (786.09) (R06.00) CLEM on CPAP (327.23,V46.8) (G47.33,Z99.89) Orders 6 Minute Walk Test; Status:Hold For - Scheduling; Requested for:22Nov2020; Perform:[facility]; Due:20Feb2021;Ordered ; For:ILD (interstitial lung disease); Ordered By:Carter Kruse; Calcium, Urine 24 Hour; Status:Active; Requested for:22Nov2020; Perform:[facility] - Lab To Draw (Non-Blood Test); Due:20Feb2021;Ordered ; For:ILD (interstitial lung disease); Ordered By:Carter Kruse; Complete Blood Count + Differential; Status:In Progress - Specimen/Data Collected; Done: 22Nov2020 Perform:[facility] - Lab To Draw (Blood Test); Due:20Feb2021;Ordered ; For:ILD (interstitial lung disease); Ordered By:Carter Kruse; Complete PFT w/o ABG; Status:Hold For - Scheduling; Requested for:22Nov2020; Perform:[facility]; Due:20Feb2021;Ordered ; For:ILD (interstitial lung disease); Ordered By:Carter Kruse; Comprehensive Metabolic Panel; Status:In Progress - Specimen/Data Collected; Done: 22Nov2020 Perform:[facility] - Lab To Draw (Blood Test); Due:20Feb2021;Ordered ; For:ILD (interstitial lung disease); Ordered By:Carter Kruse; CT Chest without Contrast; Status:Active; Requested for:[id number]; Perform:[facility];Ordered; For:ILD (interstitial lung disease); Ordered By:Carter Kruse; Patient taking Metformin or Derivatives? : No Radiologist to Determine Optimal Study : Y What are the patient's signs and symptoms? : dyspnea on exertion Echocardiogram; Status:Hold For - Scheduling; Requested for:22Nov2020; Perform:[facility] ([facility]); Due:20Feb2021;Ordered ; For:ILD (interstitial lung disease); Ordered By:Carter Kruse; Electrocardiogram EKG; Status:Hold For - Scheduling; Requested for:22Nov2020; Perform:[facility] Dina Bullock 1800; Due:20Feb2021;Ordered ; For:ILD (interstitial lung disease); Ordered By:Carter Kruse; HIV 1/2 ANTIGEN/ANTIBODY SCREEN WITH REFLEX TO CONFIRMATION; Status:In Progress - Specimen/Data Collected; Done: 22Nov2020 Perform:[facility] - Lab To Draw (Blood Test); Due:20Feb2021;Ordered ; For:ILD (interstitial lung disease); Ordered By:Carter Kruse; MISCELLANEOUS TEST; Status:In Progress - Specimen/Data Collected; Done: 22Nov2020 Perform:[facility] - Lab To Draw (Non-Blood Test); Order Comments:Beryllium lymphocyte proliferation test; Due:20Feb2021;Ordered ; For:ILD (interstitial lung disease); Ordered By:Carter Kruse; T-SPOT. TB; Status:In Progress - Specimen/Data Collected; Done: 22Nov2020 Perform:[facility] - Lab To Draw (Blood Test); Due:20Feb2021;Ordered ; For:ILD (interstitial lung disease); Ordered By:Carter Kruse; Urinalysis; Status:In Progress - Specimen/Data Collected; Done: 22Nov2020 Perform:[facility] - Lab To Draw (Non-Blood Test); Due:20Feb2021;Ordered ; For:ILD (interstitial lung disease); Ordered By:Carter Kruse; Vitamin D 25-Hydroxy; Status:In Progress - Specimen/Data Collected; Done: 22Nov2020 Perform:[facility] - Lab To Draw (Blood Test); Due:20Feb2021;Ordered ; For:ILD (interstitial lung disease); Ordered By:Carter Kruse; Vitamin-D 1,25-Dihydroxy, Level; Status:In Progress - Specimen/Data Collected; Done: 22Nov2020 Perform:[facility] - Lab To Draw (Blood Test); Due:20Feb2021;Ordered ; For:ILD (interstitial lung disease); Ordered By:Carter Kruse; [...] will sta (more content not included)... Normal [facility] Tobacco Screening.on 021 Fall risk assessment a) No falls within the last year [facility] [employer] [facility] Work Phone: Tobacco use status [facility] b) No [facility] Work Phone: URINALYSISon 11-22-2020 Appearance (U) CLEAR Normal CLEAR [facility] Comment on above: Performed By: #### U A #### [facility] [address] [place] [address] Bilirubin Ql (U) Negative Normal NEGATIVE [facility] Comment on above: Performed By: #### U A #### [facility] [address] [place] [address] Color (U) YELLOW Normal STRAW,YELLOW [facility] Comment on above: Performed By: #### U A #### [facility] [address] [place] [address] Glucose Ql (U) 150 (1+) Abnormal NEGATIVE [facility] Comment on above: Performed By: #### U A #### [facility] [address] [place] [address] Hemoglobin Ql (U) Negative Normal NEGATIVE [facility] Comment on above: Performed By: #### U A #### [facility] [address] [place] [address] Ketones Ql (U) Negative Normal NEGATIVE [facility] Comment on above: Performed By: #### U A #### [facility] [address] [place] [address] Leukocyte esterase Test strip Ql (U) Negative Normal NEGATIVE [facility] Comment on above: Performed By: #### U A #### [facility] [address] [place] [address] Nitrite Ql (U) Negative Normal NEGATIVE [facility] Comment on above: Performed By: #### U A #### [facility] [address] [place] [address] pH (U) 5.0 [pH] Normal 5.0 - 8.0 [facility] Comment on above: Performed By: #### U A #### [facility] [address] [place] [address] Protein Ql (U) Negative Normal NEGATIVE [facility] Comment on above: Performed By: #### U A #### [facility] [address] [place] [address] Specific gravity (U) [Rel density] 1.021 Normal 1.005 - 1.035 [facility] Comment on above: Performed By: #### U A #### [facility] [address] [place] [address] Urobilinogen (U) [Mass/Vol] mg/dL Normal 0.0 - 1.9 [facility] Comment on above: Performed By: #### U A #### [facility] [address] [place] [address] VITAMIN D, 25-HYDROXYon - VITAMIN D, 25-HYDROXY 23 ng/mL Abnormal [facility] Comment on above: Result Comment: . DEFICIENCY: < 20 NG/ML INSUFFICIENCY: 20-29 NG/ML SUFFICIENCY: 30-100 NG/ML THIS ASSAY ACCURATELY QUANTIFIES THE SUM OF VITAMIN D3, 25-HYDROXY AND VIT D2,25-HYDROXY. Performed By: #### T SPOT #### [facility] [address] [place] [id number] MISCELLANEOUS TEST-SOARIANon 07-31-2020 MISCELLANEOUS SEE BELOW Normal [facility] Comment on above: Result Comment: TEST RESULT [...] developed and its performance characteristics determined by [employer]. It has not been cleared or approved by the [place] Food and Drug Administration. This test was performed in a CLIA certified laboratory and is intended for clinical purposes. Test results should be interpreted with caution. Assay was performed at client's request on a sub-optimal specimen. REFERRED TO [facility] [address] [facility] [address] Performed By: #### M ISCS #### GENERAL SENDOUT CD4 AND CD8 (T4T8 SCREEN)on 07-25-2020 CD4/CD8 RATIO Canceled Normal [facility] Comment on above: Order Comment: TEST CD4 AND CD8 (T4T8 SCREEN) WAS CANCELLED, 07/25/2020 07:57 BAL specimensto be sent to [place] for testing per Dr. Stevenson.. Performed By: #### T SPOT #### [facility] [address] [place] [address] CD45 % Canceled Normal [facility] Comment on above: Order Comment: TEST CD4 AND CD8 (T4T8 SCREEN) WAS CANCELLED, 07/25/2020 07:57 BAL specimensto be sent to [facility] for testing per Dr. Stevenson.. Performed By: #### T SPOT #### [facility] [address] [place] [address] MARKER INTERPRETATION Canceled Normal [facility] Comment on above: Order Comment: TEST CD4 AND CD8 (T4T8 SCREEN) WAS CANCELLED, 07/25/2020 07:57 BAL specimensto be sent to [facility] for testing per Dr. Stevenson.. Performed By: #### T SPOT #### [facility] [address] [place] [address] [facility] Comment on above: Order Comment: TEST CD4 AND CD8 (T4T8 SCREEN) WAS CANCELLED, 07/25/2020 07:57 BAL specimensto be sent to [facility] for testing per Dr. Stevenson.. Result Comment: This test is a multicolor, whole blood lysis assay. It was developed and its performance characteristics determined by the Department of Pathology, [facility], and has not been cleared or approved by the U.S. Food and Drug Administration. The laboratory is regulated under CLIA as qualified to perform high complexity testing. This test is used for clinical purposes. It should not be regarded as investigational or for research. Performed By: #### T SPOT #### [facility] [address] [place] [address] [facility] Comment on above: Order Comment: TEST CD4 AND CD8 (T4T8 SCREEN) WAS CANCELLED, 07/25/2020 07:57 BAL specimensto be sent to [facility] for testing per Dr. Stevenson.. Performed By: #### T SPOT #### [facility] [address] [place] [address] MISCELLANEOUS TEST-SOARIANon 07-25-2020 NAME OF SEND OUT TEST Lymphocyte Subset Panel Normal [facility] Comment on above: Result Comment: BAL Specimen Performed By: #### M ISCS #### GENERAL SENDOUT AFB CULTURE/SM, [facility] 07-24 AFB CULTURE/SM, [facility] PATIENT: SAHIL WILSON LOCATION: [facility]H PATEL#: [id number] : 74 AGE: SEX: M ORDERED BY: STUART MIGUEL SOURCE: BRONCHIAL COLLECTED: 07/24/20 11:00 ANTIBIOTICS AT [facility].: RECEIVED : 07/24/20 14:23 SITE: BAL RML R E S U L T S AFB SMEAR FINAL 07/25/20 13:44 ACID FAST SMEAR - NEGATIVE. AFB CULTURE/SM, MIS FINAL 09/13/20 14:08 NO MYCOBACTERIA ISOLATED. Normal [facility] Comment on above: Performed By: #### T SPOT #### [facility] [address] [place] [address] CBC AND DIFFERENTIALon 07-24 % AUTOMATED IMMATURE GRAN Canceled Normal [facility] Comment on above: Order Comment: TEST CBC AND DIFFERENTIAL WAS CANCELLED, 07/24/2020 13:45 SAMPLE UNSUITABLE FOR TESTING.. Result Comment: Ambika ture Granulocyte Count (IG) includes promyelocytes, myelocytes and metamyelocytes but does not include bands. Percent differential counts (%) should be interpreted in the context of the absolute cell counts (cells/L). Performed By: #### C BCDF #### [facility] [address] [place] [address] % BASOPHIL Canceled Normal [facility] Comment on above: Order Comment: TEST CBC AND DIFFERENTIAL WAS CANCELLED, 07/24/2020 13:45 SAMPLE UNSUITABLE FOR TESTING.. Performed By: #### C BCDF #### [facility] [address] [place] [address] % EOSINOPHIL Canceled Normal [facility] Comment on above: Order Comment: TEST CBC AND DIFFERENTIAL WAS CANCELLED, 07/24/2020 13:45 SAMPLE UNSUITABLE FOR TESTING.. Performed By: #### C BCDF #### [facility] [address] [place] [address] % LYMPHOCYTE Canceled Normal [facility] Comment on above: Order Comment: TEST CBC AND DIFFERENTIAL WAS CANCELLED, 07/24/2020 13:45 SAMPLE UNSUITABLE FOR TESTING.. Performed By: #### C BCDF #### [facility] [address] [place] [address] % MONOCYTE Canceled Normal [facility] Comment on above: Order Comment: TEST CBC AND DIFFERENTIAL WAS CANCELLED, 07/24/2020 13:45 SAMPLE UNSUITABLE FOR TESTING.. Performed By: #### C BCDF #### [facility] [address] [place] [address] % NEUTROPHIL Canceled Normal [facility] Comment on above: Order Comment: TEST CBC AND DIFFERENTIAL WAS CANCELLED, 07/24/2020 13:45 SAMPLE UNSUITABLE FOR TESTING.. Performed By: #### C BCDF #### [facility] [address] [place] [address] [address] [facility] Comment on above: Order Comment: TEST CBC AND DIFFERENTIAL WAS CANCELLED, 07/24/2020 13:45 SAMPLE UNSUITABLE FOR TESTING.. Performed By: #### C BCDF #### [facility] [address] [place] [address] [facility] Comment on above: Order Comment: TEST CBC AND DIFFERENTIAL WAS CANCELLED, 07/24/2020 13:45 SAMPLE UNSUITABLE FOR TESTING.. Performed By: #### C BCDF #### [facility] [address] [place] [address] [address]IN[address] [facility] Comment on above: Order Comment: TEST CBC AND DIFFERENTIAL WAS CANCELLED, 07/24/2020 13:45 SAMPLE UNSUITABLE FOR TESTING.. Performed By: #### C BCDF #### [facility] [address] [place] [address] [facility] Comment on above: Order Comment: TEST CBC AND DIFFERENTIAL WAS CANCELLED, 07/24/2020 13:45 SAMPLE UNSUITABLE FOR TESTING.. Performed By: #### C BCDF #### [facility] [address] [place] [address] [facility] Comment on above: Order Comment: TEST CBC AND DIFFERENTIAL WAS CANCELLED, 07/24/2020 13:45 SAMPLE UNSUITABLE FOR TESTING.. Performed By: #### C BCDF #### [facility] [address] [place] [address] [address] Canceled Normal [facility] Comment on above: Order Comment: TEST CBC AND DIFFERENTIAL WAS CANCELLED, 07/24/2020 13:45 SAMPLE UNSUITABLE FOR TESTING.. Performed By: #### C BCDF #### [facility] [address] [place] [address] [facility] Comment on above: Order Comment: TEST CBC AND DIFFERENTIAL WAS CANCELLED, 07/24/2020 13:45 SAMPLE UNSUITABLE FOR TESTING.. Performed By: #### C BCDF #### [facility] [address] [place] [address] [facility] Comment on above: Order Comment: TEST CBC AND DIFFERENTIAL WAS CANCELLED, 07/24/2020 13:45 SAMPLE UNSUITABLE FOR TESTING.. Performed By: #### C BCDF #### [facility] [address] [place] [address] Canc[address] Normal [facility] Comment on above: Order Comment: TEST CBC AND DIFFERENTIAL WAS CANCELLED, 07/24/2020 13:45 SAMPLE UNSUITABLE FOR TESTING.. Performed By: #### C BCDF #### [facility] [address] [place] [address] NEUTR[address] Canc[address] Normal [facility] Comment on above: Order Comment: TEST CBC AND DIFFERENTIAL WAS CANCELLED, 07/24/2020 13:45 SAMPLE UNSUITABLE FOR TESTING.. Performed By: #### C BCDF #### [facility] [address] [place] [address] NUCLEATED RBC Canceled Normal [facility] Comment on above: Order Comment: TEST CBC AND DIFFERENTIAL WAS CANCELLED, 07/24/2020 13:45 SAMPLE UNSUITABLE FOR TESTING.. Performed By: #### C BCDF #### [facility] [address] [place] [address] [facility] Comment on above: Order Comment: TEST CBC AND DIFFERENTIAL WAS CANCELLED, 07/24/2020 13:45 SAMPLE UNSUITABLE FOR TESTING.. Performed By: #### C BCDF #### [facility] [address] [place] [address] [facility] Comment on above: Order Comment: TEST CBC AND DIFFERENTIAL WAS CANCELLED, 07/24/2020 13:45 SAMPLE UNSUITABLE FOR TESTING.. Performed By: #### C BCDF #### [facility] [address] [place] [address] RDW-CV Canceled Normal [facility] Comment on above: Order Comment: TEST CBC AND DIFFERENTIAL WAS CANCELLED, 07/24/2020 13:45 SAMPLE UNSUITABLE FOR TESTING.. Performed By: #### C BCDF #### [facility] [address] [place] [address] [facility] Comment on above: Order Comment: TEST CBC AND DIFFERENTIAL WAS CANCELLED, 07/24/2020 13:45 SAMPLE UNSUITABLE FOR TESTING.. Performed By: #### C BCDF #### [facility] [address] [place] [address] CD4 AND CD8 (T4T8 SCREEN)on 07-24-2020 Lab Specimen Source Normal [facility] Comment on above: Order Comment: TEST CD4 AND CD8 (T4T8 SCREEN) WAS CANCELLED, 07/25/2020 07:57 BAL specimensto be sent to [facility] for testing per Dr. Stevenson.. Performed By: #### T SPOT #### [facility] [address] [place] [address] CELL COUNT AND DIFF, FLUIDon 07-24-2020 CELLS COUNTED 100 Normal [facility] Comment on above: Performed By: #### T SPOT #### [facility] [address] [place] [address] Clarity (U) Hazy Normal CLEAR [facility] Comment on above: Performed By: #### T SPOT #### [facility] [address] [place] [address] Color (U) Colorless Normal YELLOW [facility] Comment on above: Performed By: #### T SPOT #### [facility] [address] [place] [address] Lymphocytes/100 WBC (Bld) 32 % Normal [facility] Comment on above: Performed By: #### T SPOT #### [facility] [address] [place] [address] MONONUCLEAR CELLS 53 % Normal [facility] Comment on above: Performed By: #### T SPOT #### [facility] [address] [place] [address] Neutrophils/100 WBC (Bld) 15 % Normal [facility] Comment on above: Performed By: #### T SPOT #### [facility] [address] [place] [address] RBC (Bld) [#/Vol] 0.001 10*6/uL Normal [facility] Comment on above: Performed By: #### T SPOT #### [facility] [address] [place] [address] WBC (Bld) [#/Vol] 0.221 10*3/uL Normal [facility] Comment on above: Performed By: #### T SPOT #### [facility] [address] [place] [address] Lab Specimen Source Peritoneal fluid /ascites Normal [facility] Comment on above: Performed By: #### T SPOT #### [facility] [address] [place] [address] FUNGAL CULTURE/SM, [facility] FUNGAL CULTURE/SM, [facility] PATIENT: JERRY WILSON [id number] : 74 AGE: SEX: M ORDERED BY: STUART MIGUEL SOURCE: BRONCHIAL COLLECTED: 07/24/20 11:00 ANTIBIOTICS AT [place].: RECEIVED : 07/24/20 14:22 SITE: BAL RML R E S U L T S FUNGAL SMEAR FINAL 07/25/20 13:58 FLUORESCENT FUNGAL STAIN: NEGATIVE FUNGAL CULTURE/, MISC FINAL 08/14/20 11:30 NO FUNGI ISOLATED. Normal [facility] Comment on above: Performed By: #### F [employer] #### [facility] [address] [place] [address] RESPIRATORY CULT./SM,[facility] 07-24-2020 RESPIRATORY CULT./SM,LOWER PATIENT: JERRY WILSON LOCATION: [facility] BILL#: [id number] : 74 AGE: SEX: M ORDERED BY: STUART MIGUEL SOURCE: BRONCHIAL COLLECTED: 07/24/20 11:00 ANTIBIOTICS AT [place].: RECEIVED : 07/24/20 14:18 SITE: BAL RML R E S U L T S GRAM STAIN FINAL 07/24/20 15:47 1+ GRANULOCYTES. NO ORGANISMS SEEN. RESPIRATORY CULT./SM,LOWER FINAL 07/28/20 12:[address] [facility] Comment on above: Performed By: #### T SPOT #### [facility] [address] Cytologyon 07-24-2020 [facility] Cytology ADDENDUM Patient Name JERRY WILSON Date of Procedure: 07/24/2020 Date Reported: 07/27/2020 Date Received: 07/24/2020 Date of / Sex 1970 (Age: 49) / M Race: OTHER Submitting Physician: STUART MIGUEL MD Attending Physician: HERBER ADAN, Addendum Present Other External # FINAL CYTOLOGICAL [...] CELLS IDENTIFIED. Slide(s) initially screened by a Blueprint Blocker at [place] [address] Electronically Signed Out By Alex Bloom MD By the signature on this report, the individual or group listed as making the Final Interpretation/Diagno sis certifies that they have reviewed this case. Slide(s) initially screened by a Blueprint Blocker at [facility] Rapid Evaluation Fine Needle Aspiration Immediate Read [...] FINE NEEDLE ASPIRATION LYMPH NODE-11RI Diff-Quik stain Non-Nut Sheller Machine Operator, Diff-Quik stain Non-Nut Sheller Machine Operator, Pap stain Non-Nut Sheller Machine Operator, Pap stain Non-Nut Sheller Machine Operator, CELL BLOCK, H AND E, Initial B: FINE NEEDLE ASPIRATION LYMPH NODE-7 Diff-Quik stain Non-Nut Sheller Machine Operator, Diff-Quik stain Non-Nut Sheller Machine Operator, Pap stain Non-Nut Sheller Machine Operator, Pap stain Non-Nut Sheller Machine Operator, CELL BLOCK, H AND E, Initial, H GOMORI'S METHENAMINE SILVER, H ACID FAST BACILLI, ZIEHL-NEELSON C: FINE NEEDLE ASPIRATION LYMPH NODE-4R Diff-Quik stain Non-Nut Sheller Machine Operator, Pap stain Non-Nut Sheller Machine Operator, CELL BLOCK, H AND E, Initial, H GOMORI'S METHENAMINE SILVER, H ACID FAST BACILLI, ZIEHL-NEELSON D: BRONCHO-ALVEOLAR LAVAGE OF RIGHT MIDDLE LOBE Pap non-skein yard drier ThinPrep slide Gross Description A. FINE NEEDLE [...] or group listed as making the Final Interpretation/Diagno sis certifies that they have reviewed this case. The assays/tests were performed with appropriate positive and negative controls which stained appropriately. [facility] Department of Pathology [address] [place] [address] [facility] Comment on above: Performed By: #### C #### [facility] Cytology [address] [facility] [address] [facility] Surgical Pathology Depar tmenton 07-24-2020 [facility] Surgical Pathology Department Name JERRY WILSON Pathologist: DANIELLE AMAYA JR, MD, PhD. Date of Procedure: 07/24/2020 Date Received: 07/24/2020 Date Reported 07/26/2020 Submitting Physician: STUART MIGUEL MD Location: Copy To/Referring/Attendin g: HERBER ADAN, DO Other External # FINAL [...] correlation and correlation with microbiologic studies suggested. CHARGEBACK SPECIALIST: Dr. Elza Vazquez, thoracic pathologist, [facility] IMMUNOHISTOCHEMISTRY AND IN SITU HYBRIDIZATION: CD3 and CD20 highlight T and B cells respectively, T cells more abundant than B cells. [place] and Lambda in situ hybridization highlight few polytypic plasma cells. Electronically Signed Out By DANIELLE AMAYA JR, MD, PhD./STACY By the signature on this report, the individual or group listed as making the Final Interpretation/Diagno sis certifies that they have reviewed this case. [...] submitted in toto in one cassette. SBS n/07/24/2020 The assays/tests were performed with appropriate positive [...] the Department of Pathology Immunohistochemistry Labs at [facility]. The FDA does not require this test to go through premarket FDA review. This test is used for clinical purposes. It should not be regarded as investigational or for research. This laboratory is certified under the Clinical Laboratory Improvement Amendments (CLIA) as qualified to perform high complexity clinical laboratory testing. The assays/tests were performed with appropriate positive and negative controls which stained appropriately. [facility] Department of Pathology [address] [place] [address] [facility] Comment on above: Performed By: #### U [facility] #### [facility] Surgical Pathology Department [address] [place] [address] Consult (Pulmonary Medicine) on 07-19-2020 Consult (Pulmonary [...] All medical record entries made by the Scribe were at my direction and personally dictated [...] HFA Social History: Tobacco: Never smoker Occupation: [employer], dust exposure Imaging history: (I have personally [...] Normal [facility] CBC With Platelet and Differ entialon 05-07-2018 Basophils Auto #/vol (Bld) 0.0 10*3/uL Normal 0.0-0.[address] [facility] Basophils/100 WBC Auto (Bld) 0.5 % Normal [facility] Eosinophils Auto #/vol (Bld) 0.1 10*3/uL Normal 0.0-0.[address] [facility] Eosinophils/100 WBC Auto (Bld) 2.6 % Normal [facility] Erythrocyte distribution width Auto Ratio (RBC) 12.6 % Normal 11.5-14.[address] [facility] Hematocrit Auto Volume Fraction (Bld) 38.2 % Low 42.0-52.[address] [facility] Hemoglobin mass conc (Bld) 13.1 g/dL Low 14.0-18.[address] [facility] Lymphocytes Auto #/vol (Bld) 0.8 10*3/uL Low 1.0-4.[address] [facility] Lymphocytes/100 WBC Auto (Bld) 18.0 % Normal [facility] MCH Auto Entitic mass (RBC) 30.7 pg Normal 27.0-31.[address] [facility] MCHC Auto mass conc (RBC) 34.4 % Normal 33.0-37.[address] [facility] MCV Auto Entitic volume (RBC) 89.3 fL Normal 80.0-100.[address] [facility] Monocytes Auto #/vol (Bld) 0.7 10*3/uL Normal 0.2-0.[address] [facility] Monocytes/100 WBC Auto (Bld) 14.3 % Normal [facility] Neutrophils Auto #/vol (Bld) 3.0 10*3/uL Normal 1.4-6.5 [facility] Neutrophils/100 WBC Auto (Bld) 64.6 % Normal [facility] Platelets Auto #/vol (Bld) 233 10*3/uL Normal 130-[address] [facility] RBC Auto #/vol (Bld) 4.28 10*6/uL Low 4.70-6.10 [facility] WBC Auto #/vol (Bld) 4.6 10*3/uL Low 4.8-10.8 [facility] Sedimentation Rateon 12-27-2 018 Sedimentation Rate 48 mm Critically high 0-10 [facility] Basic Metabolic Panel Reflex Mgon 05-01-2018 Anion gap 3 molar conc 15 mmol/L Critically high 7-13 [facility] Calcium mass conc 8.9 mg/dL Normal 8.6-10.[address] [facility] Chloride molar conc 102 mmol/L Normal 98-[address] [facility] CO2 molar conc 22 mmol/L Normal 22-29 [facility] Creatinine mass conc 0.85 mg/dL Normal 0.70-1.20 [facility] GFR/1.73 sq M predicted among blacks MDRD vol rate/area (S/P/Bld) mL/min/{1.73_m2} Normal >60 [facility] Comment on above: Result Comment: >60 mL/min/1.73m2 EGFR, calc. for ages 18 and older using theMDRD formula (not corrected for weight), is valid for stablerenal function. GFR/1.73 sq M.predicted MDRD vol rate/area mL/min/{1.73_m2} Normal >60 [facility] Comment on above: Result Comment: >60 mL/min/1.73m2 EGFR, calc. for ages 18 and older using theMDRD formula (not corrected for weight), is valid for stablerenal function. Glucose mass conc 189 mg/dL Critically high 74-109 [facility] Potassium reflex Mg 4.7 mEq/L Normal 3.5-5.1 [facility] Sodium molar conc 139 mmol/L Normal 132-[address] [facility] Urea nitrogen mass conc 19 mg/dL Normal 6-20 [facility] CBC With Platelet and Differ entialon 05-01-2018 Basophils Auto #/vol (Bld) 0.0 10*3/uL Normal 0.0-0.[address] [facility] Basophils/100 WBC Auto (Bld) 0.2 % Normal [facility] Eosinophils Auto #/vol (Bld) 0.0 10*3/uL Normal 0.0-0.7 [facility] Eosinophils/100 WBC Auto (Bld) 0.0 % Normal [facility] Erythrocyte distribution width Auto Ratio (RBC) 12.8 % Normal 11.5-14.5 [facility] Hematocrit Auto Volume Fraction (Bld) 40.5 % Low 42.0-52.0 [facility] Hemoglobin mass conc (Bld) 14.3 g/dL Normal 14.0-18.0 [facility] Lymphocytes Auto #/vol (Bld) 0.6 10*3/uL Low 1.0-4.[address] [facility] Lymphocytes/100 WBC Auto (Bld) 6.1 % Normal [facility] MCH Auto Entitic mass (RBC) 31.1 pg Normal 27.0-31.[address] [facility] MCHC Auto mass conc (RBC) 35.3 % Normal 33.0-37.0 [facility] MCV Auto Entitic volume (RBC) 88.2 fL Normal 80.0-100.0 [facility] Monocytes Auto #/vol (Bld) 0.3 10*3/uL Normal 0.2-0.8 [facility] Monocytes/100 WBC Auto (Bld) 2.6 % Normal [facility] Neutrophils Auto #/vol (Bld) 9.1 10*3/uL Critically high 1.4-6.5 [facility] Neutrophils/100 WBC Auto (Bld) 91.1 % Normal [facility] Platelets Auto #/vol (Bld) 209 10*3/uL Normal 130-[address] [facility] RBC Auto #/vol (Bld) 4.60 10*6/uL Low 4.70-6.10 [facility] WBC Auto #/vol (Bld) 9.9 10*3/uL Normal 4.8-10.8 [facility] XR LUMBAR SPINE (2-3 VIEWS)o n 05-01-2018 [...] Rodríguez, DOSigned by:Matteo Rodríguez, DO05/01/18inal result Normal [facility] Antibody IDon 04-30-2018 Antibody ID PATIENT: LAURO Chan LOC: LCJOSE L,ORPOOL,NONBILL# : [id number] : 1970 SEX: MORDERED BY: SAVANAH BILLS ORDERED : 04/30/2018 11:55 COLLECTED: 04/30/2018 10:45ORDER : [id number] RECEIVED : 04/30/2018 10:45 Notified Cardoza Surg of positive ab screen and delay of compatible blood 04/30/18 11:40 Erika Rodgers TEST NAME RESULT UNITS RANGES ABN FL STAntibody ID POS, Cold Auto Aggluti F Normal [facility] Basic Metabolic Panel Reflex Mgon 04-30-2018 Anion gap 3 molar conc 17 mmol/L Critically high 7-13 [facility] Calcium mass conc 9.1 mg/dL Normal 8.6-10.[address] [facility] Chloride molar conc 102 mmol/L Normal 98-[address] [facility] CO2 molar conc 20 mmol/L Low 22-29 [facility] Creatinine mass conc 1.07 mg/dL Normal 0.70-1.20 [facility] GFR/1.73 sq M predicted among blacks MDRD vol rate/area (S/P/Bld) mL/min/{1.73_m2} Normal >60 [facility] Comment on above: Result Comment: >60 mL/min/1.73m2 EGFR, calc. for ages 18 and older using theMDRD formula (not corrected for weight), is valid for stablerenal function. GFR/1.73 sq M.predicted MDRD vol rate/area mL/min/{1.73_m2} Normal >60 [facility] Comment on above: Result Comment: >60 mL/min/1.73m2 EGFR, calc. for ages 18 and older using theMDRD formula (not corrected for weight), is valid for stablerenal function. Glucose mass conc 132 mg/dL Critically high 74-109 [facility] Potassium reflex Mg 4.1 mEq/L Normal 3.5-5.[address] [facility] Sodium molar conc 139 mmol/L Normal 132-[address] [facility] Urea nitrogen mass conc 21 mg/dL Critically high 6-20 [facility] CBC With Platelet No Differe ntialon 04-30-2018 Erythrocyte distribution width Auto Ratio (RBC) 12.9 % Normal 11.5-14.5 [facility] Hematocrit Auto Volume Fraction (Bld) 43.8 % Normal 42.0-52.0 [facility] Hemoglobin mass conc (Bld) 15.0 g/dL Normal 14.0-18.0 [facility] MCH Auto Entitic mass (RBC) 30.7 pg Normal 27.0-31.[address] [facility] MCHC Auto mass conc (RBC) 34.3 % Normal 33.0-37.0 [facility] MCV Auto Entitic volume (RBC) 89.5 fL Normal 80.0-100.0 [facility] Platelets Auto #/vol (Bld) 208 10*3/uL Normal 130-[address] [facility] RBC Auto #/vol (Bld) 4.89 10*6/uL Normal 4.70-6.10 [facility] WBC Auto #/vol (Bld) 10.4 10*3/uL Normal 4.8-10.8 [facility] BRIAN Poly Tubeon 04-30-2018 BRIAN Poly Tube PATIENT: ALURO Chan LOC: LCOPS,ORPOOL,NONBILL# : [id number] : 1970 SEX: MORDERED BY: SAVANAH BILLS ORDERED : 04/30/2018 12:48 COLLECTED: 04/30/2018 10:45ORDER : [id number] RECEIVED : 04/30/2018 10:45 Notified Cardo[facility] Surg of positive ab screen and delay of compatible blood 04/30/18 11:40 Erika Rodgers TEST NAME RESULT UNITS RANGES ABN FL STDAT Poly Tube NEG F Normal [facility] FLUORO FOR SURGICAL PROCEDUR ESon 04-30-2018 FLUORO FOR SURGICAL PROCEDURES FLUORO FOR SURGICAL PROCEDURES : 04/30/2018CLINICAL HISTORY: L5-S1 fusion revision.COMPARISON: Outside lumbar spine CT 03/09/2018.Intraopera tive fluoroscopy was provided for Dr. Burks's L5-S1 fusion revision surgery.A total of 13.1 seconds of fluoroscopy was used, with one fluoroscopic still saved. No diagnostic images were obtained.Please see Dr. Burks's surgical notes for completeness.Interpre jeanie by:MARY ANN Lucianoigned by:Cruz Ledesma MD05/01/18inal result Normal [facility] RBC LRon 04-30-2018 RBC Auto #/vol (Bld) PATIENT: LAURO Chan LOC: LC2N,N226,01BILL# : [id number] : 1970 SEX: MORDERED BY: SAVANAH BILLS ORDERED : 04/30/2018 11:55 COLLECTED: 04/30/2018 18:46ORDER : [id number] RECEIVED : 04/30/2018 19:12 Notified [facility] Surg of positive ab screen and delay of compatible blood 04/30/18 11:40 Erika Rodgers TEST NAME RESULT UNITS RANGES ABN FL STRBC LR [id number] RBC LR W0 F = Normal [facility] Rejection Notificationon Rejected Test tyrcc Normal [facility] Type and Screen Capture 3 sc rn cellon 04-30-2018 Type and Screen Capture 3 scrn cell PATIENT: LAURO Chan LOC: GILBERT RIVERA NONBILL# : [id number] : 1970 SEX: MORDERED BY: SAVANAH BILLS ORDERED : 04/30/2018 10:06 COLLECTED: 04/30/2018 10:45ORDER : [id number] RECEIVED : 04/30/2018 10:45 Notified [facility] Surg of positive ab screen and delay of compatible blood 04/30/18 11:40 Erika Rodgers TEST NAME RESULT UNITS RANGES ABN FL STABORH Capture B POS FAntibody 3 Cell Scrn Captu POS F Normal [facility] Vital Signs Date Time Vital Sign Value Performing Clinician Facility 02-11-2023 14:18-0400 Blood Pressure Location Bill MONAE [facility] [place] 02-11-2023 14:18-0400 Diastolic blood pressure 104 mm[Hg] Bill MONAE [facility] [place] 02-11-2023 14:18-0400 Heart rate 80 /min Bill MONAE [facility] [place] 02-11-2023 14:18-0400 Respiratory rate 16 /min Bill MONAE [facility] [place] 02-11-2023 14:18-0400 Systolic blood pressure 140 mm[Hg] Bill MONAE [facility] [place] 01-12-2021 13:17-0400 Body temperature 96.1 [degF] Referring [...] [facility] Work Phone: Comment on above: KelvinScjan 11-22-2020 13:10-0400 Body temperature 95.8 [degF] Referring [...] [facility] Work Phone: 11-22-2020 13:10-0400 0 1 Referring Provider Unknown [facility] Work Phone: Comment on above: [employer] Encounters Encounter Date Encounter Type Care Provider Facility Start: 05-24-2024 ambulatory Alex PANG Facility : [facility] Start: 03-30-2024 ambulatory PA-C JAIME KAPLAN Facility:[facility] Start: 03-30-2024 End: 03-30-2024 Lab Drop off JAIME KAPLAN [facility] Start: 03-30-2024 End: 03-30-2024 ambulatory PA-C JAIME KAPLAN Facility: [place] Start: 03-30-2024 End: 03-30-2024 Patient encounter procedure JAIME KAPLAN [facility] Start: 03-05-2024 ambulatory Bill SOTOL Facility:[facility] Start: 04-22-2023 End: 04-22-2023 ambulatory Bill R NILL Facility: [facility] Start: 04-22-2023 End: 04-22-2023 Patient encounter procedure Bill SOTOL [facility] Start: 04-09-2023 End: 04-09-2023 ambulatory Bill R BRITTANYL Facility:CD:[id number] Start: 02-11-2023 End: 02-11-2023 Patient encounter procedure Bill R BRITTANYL [facility] Start: 09-13-2022 End: 09-13-[address] DORON CAMACHO . [facility] Other Start: 09-13-2022 Patient encounter procedure Halie [facility] Start: 08-16-2022 Encounter for genera l adult medical examination without abnormal findings DR DORON CAMACHO . [facility] Start: 08-10-2022 End: 08-11-[address] [...] 05-07-2018 End: 05-07-2018 Emergency department patient visit [facility] Start: 05-07-2018 Encounter for genera l adult medical examination without abnormal findings [facility] Start: 04-30-2018 End: 05-03-2018 Patient encounter procedure [facility] Start: 04-30-2018 End: 05-02-2018 Evaluation and management of inpatient SANJU H. SAVANAH [facility] Patient encounter status Referri ng Provider Unknown [facility] Work Phone: Procedures Date Procedure Procedure Detail Performing Clinician Start: 04-09-2023 Colonoscopy Bill ARTEAGA LL Start: 08-10-[address] VANE CAMACHO . Comment on above: Performed By: #### P SAS, VITAD #### [facility] [address] [place] [address] Dr. Frank Nugent Start: 07-19-2020 Basic metabolic 1998 panel - Serum or Plasma Stuart Miguel Start: 07-19-2020 Blood count complete auto&auto difrntl wbc Stuart Miguel Start: 05-07-2018 Blood count complete auto&auto difrntl wbc SANJU SAAVNAH Start: 05-07-2018 SEDIMENTATION RATE SANJU Y OO [...] SCREEN SANJU SAVANAH Arthroscopy of shoulder Esdras aejosef NILL Lumbar spinal fusion Bill NILL Lumbar spinal fusion Bill NILL Operative procedure on knee Referring Provider Unknown Repair of left ingui nal hernia Bill NILL Repair of meniscus Bill Juan Jose ILL Repair of right ingu inal hernia Bill NILL Repair of shoulder Referring Provider Unknown Spinal arthrodesis Referring Provider Unknown Plan of Treatment Date Care Activity Detail Author Start: 01-12-2021 FUV, Provider: Carter Kruse, Status: Pen, Time: 1:30 PM FUV, Provider: Carter Kruse, Status: Pen, Time: 1:30 PM [facility] Work Phone: Start: 01-12-2021 PST, Provider: JAZZMINE CASTLE [facility]TH [facility],PULM, Status: Pen, Time: 1:15 PM PST, Provider: JAZZMINE CASTLE 6TH [facility] [place],PULM, Status: Pen, Time: 1:15 PM [facility] Work Phone: Start: 01-12-2021 PFT, Provider: JAZZMINE CASTLE 6TH FLR PFT RM1,PULM, Status: Pen, Time: 11:30 AM PFT, Provider: JAZZMINE CASTLE 6TH FLR PFT RM1,PULM, Status: Pen, Time: 11:30 AM [facility] Work Phone: Start: 12-15-2020 ECHO, Provider: KARISHMA AKERSMG CARD, Status: Pen, Time: 2:00 PM ECHO, Provider: KARISHMA CHEUNGIMG CARD, Status: Pen, Time: 2:00 PM [facility] Work Phone: Immunizations Immunization Date Immunization Notes Care Provider Fa cility 09-18-2020 Pfizer-BioNTech COVI D-19 Vacc 30 MCG/0.3ML Intramuscular Suspension Referring Provider Unknown [facility] [place] 08-28-2020 Pfizer-BioNTech COVI D-19 Vacc 30 MCG/0.3ML Intramuscular Suspension Referring Provider Unknown [facility] [place] Payers Date Payer Category Payer Unknown [id number] 1970 Unknown [id number] 2.16.8 [id number] 1970 Unknown [id number] 2.16.8 [id number] 1970 Unknown [id number] 2.16.8 [id number] 1970 Unknown [id number] 2.16.84 [id number] 1970 Unknown [id number] 2.16.84 [id number] 1970 Unknown [id number] 2.16.8 [id number] 1970 Unknown [id number] 2.16.8 [id number] 1970 Unknown [id number] 2.16.8 [id number] 1970 Unknown [id number] 2.16.8 [id number] 1970 Unknown [id number] 2.16.8 [id number] 1957 Unknown [id number] 2.16.8 [id number] Unknown Social History Date Type Detail Facility Never a smoker Never a smoker [facility] Work Phone: Sex Assigned At [facility] Start: 02-11-2023 End: 03-30-2024 Tobacco smoking status Never smoked tobacco (finding) [facility] [place] Tobacco smoking status Never [facility] [place] NEGATED: Highlighted row - - [facility] Work Phone: Functional Status Date Assessment Result Facility 03-30-2024 Functional Status N/A [facility] 02-11-2023 Functional Status N/A [facility] NE[facility]ATED: Highlighted row Functional performance Functional status health issues are not documented Disease [facility] Work Phone: Mental Status Date Assessment Result Facility NEGATED: Highlighted row Cognitive function [Interpretation] Cognitive status health issues are not documented Disease [facility] Work Phone: Clinical Notes 11-22-2020 to 03-30-2024 Note Date & Type Note Facility 03-30-2024 Hospital Discharge instructions Patient Education 03/30/2024 16:23:00 Kidney Stones, Uktr-kb-Uzxo Kidney Stones Kidney stones are rock-like masses that form inside of the kidneys. Kidneys are organs that make pee (urine). A kidney stone may move into other parts of the urinary tract, including: The tubes that connect the kidneys to the bladder (ureters). The bladder. The tube that carries urine out of the body (urethra). Kidney stones can cause very bad pain and can block the flow of pee. The stone usually leaves your body through your pee. A doctor may need to take out the stone. What are the causes? Kidney stones may be caused by: Too much calcium in the body. This may be caused by too much parathyroid hormone in the blood. Uric acid crystals in the bladder. The body makes uric acid when you eat certain foods. Narrowing of one or both of the ureters. A kidney blockage that you were born with. Past surgery on the kidney or the ureters. What increases the risk? You are more likely to develop this condition if: You have had a kidney stone in the past. Other people in your family have had kidney stones. You do not drink enough water. You eat a diet that is high in protein, salt (sodium), or sugar. You are very overweight (obese). What are the signs or symptoms? Symptoms of a kidney stone may include: Pain in the side of the belly, right below the ribs. Pain usually spreads to the groin. Needing to pee often or right away. Pain when peeing. Blood in your pee. Feeling like you may vomit (nauseous). Vomiting. Fever and chills. How is this treated? Treatment depends on the size, location, and makeup of the kidney stones. The stones will often pass out of the body when you pee. You may need to: Drink more fluid to help pass the stone. ?In some cases, you may be given fluids through an IV tube at the hospital. Take medicine for pain. Change your diet to help keep kidney stones from coming back. Sometimes, you may need: A procedure to break up kidney stones using a beam of light (laser) or shock waves. Surgery to remove the kidney stones. Follow these instructions at home: Medicines Take dvoe-mal-aajlpgr and prescription medicines only as told by your doctor. Ask your doctor if the medicine prescribed to you requires you to avoid driving or using machinery. Eating and drinking Drink enough fluid to keep your pee pale yellow. ?You may be told to drink at least 8 10 glasses of water each day. This will help you pass the stone. If told by your doctor, change your diet. You may be told to: ?Limit how much salt you eat. ?Eat more fruits and vegetables. ?Limit how much meat, poultry, fish, and eggs you eat. Follow instructions from your doctor about what you may eat and drink. General instructions Collect pee samples as told by your doctor. You may need to collect a pee sample: ?24 hours after a stone comes out. ?8 12 weeks after a stone comes out, and every 6 12 months after that. Strain your pee every time you pee. Use the strainer that your doctor recommends. Do not throw out the stone. Keep it so that it can be tested by your doctor. Keep all follow-up visits. You may need X-rays and ultrasounds to make sure the stone has come out. How is this prevented? To prevent another kidney stone: Drink enough fluid to keep your pee pale yellow. This is the best way to prevent kidney stones. Eat healthy foods. Avoid certain foods as told by your doctor. You may be told to eat less protein. Stay at a healthy weight. Where to find more information National Kidney Foundation (NKF): kidney.org Urology Care Foundation (UCF): urologyhealth.org Contact a doctor if: You have pain that gets worse or does not get better with medicine. Get help right away if: You have a fever or chills. You get very bad pain. You get new pain in your belly. You faint. You cannot pee. This information is not intended to replace advice given to you by your health care provider. Make sure you discuss any questions you have with your health care provider. Document Revised: 12/20/2022 Document Reviewed: 12/20/2022 [employer] Patient Education 2023 [employer]. Follow Up Care 03/16/2024 13:13:27 With:POLY ISIDRO, Alex Cohen, URL Address: [address] [place], [place] [id number]- When:Within 6 Week(s) [facility] 03-30-2024 Note Urology Office/Clini c Note Chief Complaint Dr. Camacho referral HPI Staff 53 year old male referred by Dr. Camacho for hematuria and kidney stones. Pt. states last UTI was last month and was given Amoxicillin. Pt. states he had gross hematuria and fever. Pt. states he has had 2-3 UTI since the beginning of the year. Pt. states he just calls his PCP and he gets an ABX. Pt. states he has had imaging showing kidney stones in the past. Urine micro only done 01/23/23 and UA and micro done 02/12/[address] done 01/29/23 KUB done 01/23/23 showing Rt. nephrolithiasis with 1.1 cm stone projected over the pelvis A1C 7.5 done 08/10/22 Dysuria: no Incomplete bladder emptying: no, PVR 30mL Hematuria: no Frequency: yes Urgency: yes Nocturia: 3-5x's Stream: Pt. states having weak stream, hesitancy and stop/start stream Post void dripping: occasionally Wearing pads/ Depends: no Urge incontinence: occasionally Stress incontinence: no Incontinence without Sensory Awareness: no Abdominal pain: no Flank pain: Pt. sates he will get flank pain when he has a UTI Review of Systems PHQ Score Initial Depression Screen Score: 1 SCORE Physical Exam Vitals & Measurements HT: 71 in HT: 180 cm WT: 149.8 kg WT: 330.252 lb BMI: 46.23 Assessment/Plan 1. Frequent UTI (N39.0: Urinary tract infection, site not specified) 01/01/23 - Cipro x 10d 01/27/23 - Cipro x 10d 03/31/23 - Amox x 7d 04/09/23 - Amox x 7d 03/04/24 - Cipro x 10d Pt says there have been other times this year he has required abx for UTI. I cannot find them on external pharmacy review. Says UTI typically presents w gross hematuria, fever, nausea, adri low back/flank pain. Does admit to some pain w ejaculation at times. Never feels like sitting on a golf ball/denies perineal discomfort. Says sx always improve a bit w abx but that then they come back after a few mos. Has been dealing w this for 10+ yrs. Denies ever taking long course abx for possible prostatitis. Currently baseline sx, denies his infection sx. -Contact our office next time feels infection sx. Consider prostatitis tx. 2. BPH with obstruction/lower urinary tract symptoms (N40.1: Benign prostatic hyperplasia with lower urinary tract symptoms) PCP started on Flomax 03/03/24. Pt hasn't noticed much improvement yet. IPSS 23 QOL 6. PVR 30ml. Does drink coffee and iced tea but has been cutting back. Discussed reduction of bladder irritants. -Will try increasing to 0.8mg daily. May need cysto. 3. Microscopic hematuria (R31.29: Other microscopic hematuria) Small hgb on UA today. Planned to send for micro/cx but did not get sent. Gross hematuria only ever w LUTS/infection sx. See #1. Never asx. Never a smoker. -Will need to repeat at next ov. Ordered: HgbA1c Lab Specimen Collect [id number] PSA Total Urnls Dip Stick Auto w/o Microscopy POC [id number] 4. Kidney stone (N20.0: Calculus of kidney) KUB done 01/23/23 showing Rt. nephrolithiasis with 1.1 cm stone projected over the pelvis, cannot r/o UPJ stone. CT done 01/29/23 - no hydro, +R stones (no details on size/location). -update imaging w/ KUB+KEVYN. Return to discuss possible stone tx w . Ordered: [id number] Measure Post Void residual urine and/or bladder capacity by US- non-imaging HgbA1c Lab Specimen Collect [id number] PSA Total US Renal XR Abdomen 1 View 5. Diabetes (E11.9: Type 2 diabetes mellitus without complications) A1C 7.5 done 08/10/22 Not sure of his DM meds. Discussed DM effect on LUTS. -A1c drawn IO today. Ordered: HgbA1c Lab Specimen Collect [id number] PSA Total 6. ED (erectile dysfunction) (N52.9: Male erectile dysfunction, unspecified) KAYLAN 5. Pt stated he did not wish to discuss tx options today. 7. Prostate cancer screening (Z12.5: Encounter for screening for malignant neoplasm of prostate) Will get baseline PSA due to bothersome LUTS + age. BECKI deferred by pt. -drawn IO today. Other obstructive and reflux uropathy (N13.8: Other obstructive and reflux uropathy) Orders: tamsulosin, 0.8 mg = 2 cap(s), Oral, Daily, X 30 day(s), # 60 cap(s), Refills(s) 11, Pharmacy: [id number], 180, cm, 03/30/24 9:46:00 EST, Height/Length Dosing, 149.8, kg, 03/30/24 9:46:00 EST, Weight Dosing Follow-up With When Contact Information POLY ISIDRO, Alex Cohen, URL In [address] [place] [id number]- Additional Instructions: Patient Education Kidney Stones, Uawo-jv-Tius Problem List/Past Medical History Ongoing Abnormal abdominal CT scan BMI 50.0-59.9, adult BPH with obstruction/lower urinary tract symptoms Diabetes ED (erectile dysfunction) Frequent UTI Hepatic steatosis Hepatomegaly History of nephrolithiasis HTN (hypertension) Hypercholesteremia Hyperplastic rectal polyp Interstitial lung disease LLQ abdominal pain Mediastinal lymphadenopathy Mediastinal lymphadenopathy Morbid obesity Obstructive sleep apnea syndrom (more content not included)... [facility] Comment on above: Result Comment: Elec tronically Signed By: JAIME KAPLAN PA-C.br\Date and Time Signed: 03/30/24 16:24 EST 03-30-2024 Note Patient Education Urology Kidney Stones Kidney stones are rock-like masses that form inside of the kidneys. Kidneys are organs that make pee (urine). A kidney stone may move into other parts of the urinary tract, including: ??? The tubes that connect the kidneys to the bladder (ureters). ??? The bladder. ??? The tube that carries urine out of the body (urethra). Kidney stones can cause very bad pain and can block the flow of pee. The stone usually leaves your body through your pee. A doctor may need to take out the stone. What are the causes? Kidney stones may be caused by: ??? Too much calcium in the body. This may be caused by too much parathyroid hormone in the blood. ??? Uric acid crystals in the bladder. The body makes uric acid when you eat certain foods. ??? Narrowing of one or both of the ureters. ??? A kidney blockage that you were born with. ??? Past surgery on the kidney or the ureters. What increases the risk? You are more likely to develop this condition if: ??? You have had a kidney stone in the past. ??? Other people in your family have had kidney stones. ??? You do not drink enough water. ??? You eat a diet that is high in protein, salt (sodium), or sugar. ??? You are very overweight (obese). What are the signs or symptoms? Symptoms of a kidney stone may include: ??? Pain in the side of the belly, right below the ribs. Pain usually spreads to the groin. ??? Needing to pee often or right away. ??? Pain when peeing. ??? Blood in your pee. ??? Feeling like you may vomit (nauseous). ??? Vomiting. ??? Fever and chills. How is this treated? Treatment depends on the size, location, and makeup of the kidney stones. The stones will often pass out of the body when you pee. You may need to: ??? Drink more fluid to help pass the stone. ? In some cases, you may be given fluids through an IV tube at the hospital. ??? Take medicine for pain. ??? Change your diet to help keep kidney stones from coming back. Sometimes, you may need: ??? A procedure to break up kidney stones using a beam of light (laser) or shock waves. ??? Surgery to remove the kidney stones. Follow these instructions at home: Medicines ??? Take eiui-wai-zgmawid and prescription medicines only as told by your doctor. ??? Ask your doctor if the medicine prescribed to you requires you to avoid driving or using machinery. Eating and drinking ??? Drink enough fluid to keep your pee pale yellow. ? You may be told to drink at least 8?10 glasses of water each day. This will help you pass the stone. ??? If told by your doctor, change your diet. You may be told to: ? Limit how much salt you eat. ? Eat more fruits and vegetables. ? Limit how much meat, poultry, fish, and eggs you eat. ??? Follow instructions from your doctor about what you may eat and drink. General instructions ??? Collect pee samples as told by your doctor. You may need to collect a pee sample: ? 24 hours after a stone comes out. ? 8?12 weeks after a stone comes out, and every 6?12 months after that. ??? Strain your pee every time you pee. Use the strainer that your doctor recommends. ??? Do not throw out the stone. Keep it so that it can be tested by your doctor. ??? Keep all follow-up visits. You may need X-rays and ultrasounds to make sure the stone has come out. How is this prevented? To prevent another kidney stone: ??? Drink enough fluid to keep your pee pale yellow. This is the best way to prevent kidney stones. ??? Eat healthy foods. ??? Avoid certain foods as told by your doctor. You may be told to eat less protein. ??? Stay at a healthy weight. Where to find more information ??? National Kidney Foundation (NKF): kidney.org ??? Urology Care Foundation (UCF): urologyhealth.org Contact a doctor if: ??? You have pain that gets worse or does not get better with medicine. Get help right away if: ??? You have a fever or chills. ??? You get very bad pain. ??? You get new pain in your belly. ??? You faint. ??? You cannot pee. This information is not intended to replace advice given to you by your health care provider. Make sure you discuss any questions you have with your health care provider. Document Revised: 12/20/2022 Document Reviewed: 12/20/2022 [employer] Patient Education ? 2023 [employer]. [facility] 11-22-2020 History of Present illness Narrative Mr. Wilson is a 50 y.o man, never a smoker, being evaluated for dyspnea on exertion and sarcoidosis.PCP: Dr. Pereira: Dr. Adan (pulmonary in [place])HPI:11/22/2020: At baseline, he had no dyspnea on [...] He was started on prednisone by his hotel operations manager in July. He initially felt slightly improved but shortly started worsening again. 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 ?RV enlargement but preserved RV fmqbfkja85/13/2020 -> NM stress test with No ischemia, normal wall motion, lower normal EF, left ventriculomegalyLabs:None on record -[facility] Work Phone: 11-22-2020 History of Present illness Narrative Mr. Wilson is a 50 y.o man, never a smoker, being evaluated for dyspnea on exertion and sarcoidosis.PCP: Dr. Pereira: Dr. Adan (pulmonary in [place])HPI:11/22/2020: At baseline, he had no dyspnea on [...] He was started on prednisone by his hotel operations manager in July. He initially felt slightly improved but shortly started worsening again. 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 ?RV enlargement but preserved RV /13/2020 -> NM stress test with No ischemia, normal wall motion, lower normal EF, left ventriculomegalyLabs:None on record [facility] Work Phone: 11-22-2020 History of Present illness Narrative Mr. Wilson is a 50 y.o man, never a smoker, being evaluated for dyspnea on exertion and sarcoidosis.PCP: Dr. Pereira: Dr. Adan (pulmonary in [place])HPI:11/22/2020: At baseline, he had no dyspnea on [...] He was started on prednisone by his hotel operations manager in July. He initially felt slightly improved but shortly started worsening again. 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 ?RV enlargement but preserved RV xzadsxay96/13/2020 -> NM stress test with No ischemia, normal wall motion, lower normal EF, left ventriculomegalyLabs:None on record [facility] Work Phone: 11-22-2020 History of Present illness Narrative Mr. Wilson is a 50 y.o man, never a smoker, being evaluated for dyspnea on exertion and sarcoidosis.PCP: Dr. Pereira: Dr. Adan (pulmonary in [place])HPI:11/22/2020: At baseline, he had no dyspnea on [...] He was started on prednisone by his hotel operations manager in July. He initially felt slightly improved but shortly started worsening again. 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 Has known exposure to asbestos, silica or berylliumCTD evaluation: No hx of joint pain/swelling, skin rashes, Raynaud's, sicca syndrome, eye redness, muscle pain and weakness, difficulty swallowing.Family History:No family history of lung diseases or cancerImaging history: (I have personally reviewed the imaging below)12/15/2020 HRCT with hilar/mediastinal ADP but clear nxgmlymbbs76/24/2021: CTPE with hilar/mediastinal ADP but clear parenchymaPFTs:01/12/2021 -> Ratio of 0.77/FEV1 3.67L (74%) (no BD response)/FVC 2.82L (72%)/TLC 76%/RVtoTLC ratio 0.42/DLCO 89%6 MWTs:01/12/2021->on RA, 191 m. Peak SpO2 of 95%. Gary SpO2 92%. (HR went up from 85 to 120 and BP from 150-202 systolic)Lung biopsy: None on recordEcho:12/15/2020 -> Normal EF, no diastolic dysfunction, with normal LA, RV size and sycbgowz97/24/2020 -> difficult to interpret images, probably 2/2 body habitus. ?RV enlargement but preserved RV jqqucitf11/13/2020 -> NM stress test with No ischemia, normal wall motion, lower normal EF, left ventriculomegalyLabs:CBC with lymphopenia (590)low 25 OH vitamin D but high 1-25 OH vitamin D, elevated 24hr urine calcium without hematuria [facility] [place] [facility] Work Phone: Evaluation + Plan note No data available for this section General Surgery [place] Evaluation + Plan note Future Appointments Appointment Date:05/24/2024 09:30:00 AM Scheduled Provider:POLY ISIDRO, Alex Cohen Location:[facility] Appointment Type:URO Office Visit [facility] Evaluation note No Information [facility] ZAPITANO Other History general Narrative - Reported Type Medical History Hypertension Medical History hypercholesterolemia Medical History back pain Medical History rotator cuff tear Surgical History rotator cuff Surgical History back surgery X2 Hospitalization History see above [facility] Discharge instructions No data available for this section General Surgery [place] Progress note No data available for this section General Surgery [place] Summary Purpose Family History No Family History [...] section and content) DATE CREATED AUTHOR 05/08/2018 [facility] DATE CREATED AUTHOR AUTHOR'S ORGANIZ ATION 01/14/2021 [facility] DATE CREATED AUTHOR AUTHOR'S ORGANIZ ATION 01/14/2021 [employer] DATE CREATED AUTHOR AUTHOR'S ORGANIZ ATION 07/30/2021 [facility] DATE CREATED AUTHOR AUTHOR'S ORGANIZ ATION 09/19/2022 [facility] DATE CREATED AUTHOR AUTHOR'S ORGANIZ ATION 04/01/2024 [facility] REASON FOR VISIT (unrecogniz ed section and content) NAUSEAUS, HAVING PROBLEMS UR INATING, AND IT IS DARK Patient Care team informatio n (unrecognized section and content) Personnel Name: Doron Camacho MD Address: Address: [address] [place] [address] Personnel Name: Doron Camacho MD Address: Address: [address] [place] [address] Personnel Name: Doron Camacho MD Address: Address: [address] [place] [address] Personnel Name: Doron Camacho MD Address: Address: [address] [place] [address] FOR RECORDS PERTAINING TO PATIENTS WHO ARE [...] BE BASED ON THE PRIMARY CLINICAL RECORDS. [facility]. provides no warranty or guarantee of the accuracy or completeness of information in this document.
== END 2024-04-02 08:55 | disposition home or self-care (01) ==
LOC: US 08:54
PROVIDERS: PCP Family Medicine; Visit Provider Physician Assistant
DX: N20.0 Calculus of kidney (principal)
CPT/HCPCS: 74018; 76775

== ENCOUNTER 2024-05-26 08:10 | Outpatient (OUT) | payer OTHER, SELFPAY ==
--- NOTE | 2024-05-26 08:21 | CT_ITS ---
[address] [address] Patient Name: JERRY RESTREPO MRN: [id number] date: 1970 Sex: M Assigned Patient Location: LAB Current Patient Location: Accession/Order Number: [id number] Exam Date: 05/26/2024 08:37 Report Date: 05/27/2024 04:57 At the request of: DEX PANG Procedure: CT abdomen pelvis wo/w con EXAMINATION: CT abdomen pelvis wo/w con HISTORY: Kidney Stones, Gross Hematuria, Right Flank Pain COMPARISON: CT abdomen pelvis 01/29/2023 TECHNIQUE: Axial, Coronal, and Sagittal images were obtained without and/or with IV contrast as indicated by examination type. Dose reduction techniques were achieved by using automated exposure control and/or adjustment of mA and/or kV according to patient size and/or use of iterative reconstruction technique. FINDINGS: LUNG BASES: No visible pulmonary or pleural disease. LIVER: No enlargement, atrophy, suspicious density, or significant focal lesion. BILIARY: No stones, appreciable wall thickening, or abnormal duct dilation. PANCREAS: No lesion, fluid collection, or abnormal duct dilatation. SPLEEN: No enlargement or focal lesion. ADRENALS: No mass or enlargement. KIDNEYS: Right kidney contains a nonobstructing 19 x 10 x 8 mm stone within renal pelvis and a nonobstructing 27 x 18 x 8 mm stone within inferior pole. Left kidney contains a nonobstructing 2 mm stone. Unremarkable ureters. BOWEL/MESENTERY: No visible mass, obstruction, or bowel wall thickening. AORTA/VASCULAR: No aneurysm or dissection. RETROPERITONEUM: No mass or adenopathy. LYMPH NODES: No adenopathy. URINARY BLADDER: No visible focal wall thickening, lesion, or calculus. PELVIC ORGANS: No visible mass. Pelvic organs appropriate for patient age. ABDOMINAL WALL: Tiny periumbilical fat filled hernia without strangulation. BONES: Grade one-2 anterior listhesis of L5 on S1 with prior posterior mechanical fusion. Marked disc space narrowing at this level. OTHER: Negative. CT/CT abdomen pelvis wo/w con IMPRESSION: 1. Bilateral nonobstructing nephrolithiasis; increased compared to prior study. On the right side there is a large stone within the renal pelvis which may contribute patient's symptoms. DIAGNOSIS CODE: #DC 1000: NO ALERT REQUIRED Electronically authenticated by: JEANINE ANDERSON Date: 05/27/2024 04:57
[2024-05-26 08:29] LABS: Estimated GFR (African America >60 (>=60 mL/min/1.73m^2); Estimated GFR (Non-African Ame >60 (>=60 mL/min/1.73m^2)
--- OUTSIDE RECORDS SUMMARY | 2024-05-26 08:32 | XMS_ITS | CCD ---
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 Unavailable Unavailable SAVANAH, SANJU H. Unavailable Unavailable DORON CAMACHO Unavailable Unavailable SAVANAH, SANJU H. Unavailable Unavailable SAVANAH, SANJU H. Unavailable Unavailable DORON CAMACHO Unavailable Unavailable SAVANAH, SANJU H. Unavailable Unavailable Unknown, Referring Provider Unavailable Unav ailable Unknown, Referring Provider Unavailable Unav ailable Unavailable Unavailable Halie Sam Unavailable ZARA ., DR SAL Primary Care Unavailable PAY ., DR GANNON Admitting Unavailable PAY ., DR GANNON Consulting Unavailable PAY ., DR GANNON Attending Unavailable YURY FERNANDEZ Consulting Unavailable HOY ., DR SAL Admitting Unavailable HOY ., DR SAL Primary Care Unavailable HOY ., DR SAL Consulting Unavailable ZARA ., DR SAL Attending Unavailable Doron Camacho Primary Care Physician [phone] Bill MONAE Attending Unavailable Bill MONAE Attending Unavailable Alex PANG Attending Unavailable TIM KAPLAN Attending Unavailab Doron Betancur Referring Unavailable TIM KAPLAN Admitting Unavailab TIM Chahal Attending Unavailab JAIME Chahal Attending Unavailable JAIME KAPLAN Admitting Unavailable Allergies Allergy Classification Reported Allergen(s) Allergy Type Date of Onset Reaction(s) Facility (1 source) No Known Medication Allergies; Translations: [No Known Medication Allergies] Propensity to adverse reactions (disorder) [facility] Repository Medications Current Medications Medication Drug Class(es) Dates Sig (Normalized) Sig (Original) fenofibrate 160 mg oral tablet (6 sources) Peroxisome Proliferator Receptor alpha Agonist Start: 02-05-2023 take 1 tablet by mouth once daily fenofibrate 160 mg oral tablet 160 mg = 1 tab(s), Oral, Daily, Refills(s) 0 Start Date: 02/05/23 Status: Ordered Fenofibrate Acti ve Gentamicin Sulfate (RETIREMENT) (1 source) Start: 10-11-2018 take 2 drop(s) into the eye(s) every four hours Garamycin 0.3 % 2 drops in affected eye Ophthalmic q 4 hours while awake for 5 days Oct, Active irbesartan 150 mg oral tablet (1 source) Angiotensin 2 Receptor Ellis Start: 04-02-2024 take 1 mg by mouth once daily irbesartan 150 mg Tab mg tab(s), Oral, Daily, Refills(s) 0 Start Date: 04/02/24 Status: Ordered metFORMIN hydrochloride 500 mg oral tablet (1 source) Biguanide Start: 04-02-2024 take 1 tablet by mouth twice daily metformin 500 mg Tab 500 mg = 1 tab(s), Oral, BID, # 60 tab(s), Refills(s) 0 Start Date: 04/02/24 Status: Ordered metoprolol tartrate 100 mg oral tablet (10 sources) beta-Adrenergic Ellis Start: 02-05-2023 take 1 tablet by mouth twice daily metoprolol tartrate 100 mg Tab 100 mg = 1 tab(s), Oral, BID, Refills(s) 0 Start Date: 02/05/23 Status: Ordered Metoprolol Tartr ate Active Metoprolol Tartr ate TABS Quantity: 0 Refills: 0 Ordered: 22-Nov-2020 DO Active oxaprozin 600 mg oral tablet (10 sources) Nonsteroidal Anti-inflammatory Drug Start: 02-05-2023 take 2 tablets by mouth once daily oxaprozin 600 mg Tab 1,200 mg = 2 tab(s), Oral, Daily, Refills(s) 0 Start Date: 02/05/23 Status: Ordered Oxaprozin Active Oxaprozin TABS Q uantity: 0 Refills: 0 Ordered: 22-Nov-2020 DO Active PARoxetine hydrochloride 40 mg oral tablet (6 sources) Serotonin Reuptake Inhibitor Start: 02-05-2023 take 1 tablet by mouth once daily paroxetine 40 mg Tab 40 mg = 1 tab(s), Oral, Daily, Refills(s) 0 Start Date: 02/05/23 Status: Ordered PARoxetine HCl A ctive Simvastatin (5 sources) HMG-CoA Reductase Inhibitor Start: 02-05-2023 simvastatin 0 Refill (s), Refills(s) 0 Start Date: 02/05/23 Status: Ordered Simvastatin Acti ve tamsulosin hydrochloride 0.4 mg oral capsule (3 sources) alpha-Adrenergic Ellis Start: 03-30-2024 End: 03-25-2025 take 2 capsules by mouth once daily Flomax 0.4 mg Cap 0.8 mg = 2 cap(s), Oral, Daily, X 30 day(s), # 60 cap(s), Refills(s) 11, Pharmacy: [id number], 180, cm, 03/30/24 9:46:00 EST, Height/Length Dosing, [...] Problem Date Documented Date Episodic/Chronic Abdominal pain (8 sources) Left lower quadrant pain; Translations: [Left lower quadrant pain] Onset: 02-12-20 Episodic Anal and rectal conditions (1 source) Rectal polyp; Translations: [Rectal polyp] Onset: 04-22-20 Episodic Calculus of urinary tract (8 sources) History of calculus of kidney; Translations: [Kidney stone] Onset: 03-30-20 24 02-05-2023 Episodic Diabetes mellitus without complication (7 sources) Type 2 diabetes mellitus without complications; Translations: [Diabetes mellitus] Onset: 09-18-1902-05-2023 Chronic Disorders of lipid metabolism (5 sources) Hypercholesterolemia 02-05-2023 Chronic Diverticulosis and diverticulitis (5 sources) Diverticula of intestine; Translations: [Diverticulosis of large intestine without perforation or abscess without bleeding] Onset: 04-22-20 Chronic Essential hypertension (5 sources) Hypertensive disorder 02-05-2023 Chronic Fluid and electrolyte disorders (1 source) Dehydration; Translations: [DEHYDRATION] Onset: 09-18-19 Episodic Gastrointestinal hemorrhage (6 sources) Hemorrhage of rectum and anus; Translations: [Hemorrhage of anus and rectum] Onset: 02-12-20 Episodic Genitourinary symptoms and ill-defined conditions (3 sources) Microscopic hematuria; Translations: [Other microscopic hematuria] Onset: 03-30-20 Episodic Headache; including migraine (1 source) Headache; including migraine; Translations: [HEADACHE UNSPECIFIED] Onset: 09-18-19 Hyperplasia of prostate (5 sources) Benign prostatic hypertrophy with outflow obstruction; Translations: [Benign prostatic hyperplasia with lower urinary tract symptoms] Onset: 03-30-20 Chronic Immunity disorders (9 sources) Sarcoidosis; Translations: [Sarcoidosis] 02-05-2023 Chronic Lymphadenitis (20 sources) Mediastinal lymphadenopathy; Translations: [Hilar lymphadenopathy ] 02-05-2023 Episodic Nausea and vomiting (4 sources) Nausea; Translations: [NAUSEA] Onset: 09-14-19 Episodic Nutritional deficiencies (5 sources) Vitamin D deficiency 02-05-2023 Chronic Other aftercare (1 source) Other half-way (current) drug therapy; Translations: [OTH CARE HOME CURRENT DRUG THERAPY] Onset: 09-18-19 Episodic Other and unspecified benign neoplasm (4 sources) Hyperplastic polyp of large intestine 04-22-2023 [...] uropathy] Onset: 03-30-20 Episodic Other liver diseases (5 sources) Steatosis of liver 02-05-2023 Chronic Other liver diseases (5 sources) Large liver 02-05-2023 Episodic Other lower respiratory disease (9 sources) Interstitial lung disease; Translations: [Postinflammatory pulmonary fibrosis] 02-05-2023 Chronic Other lower respiratory disease (5 sources) Dyspnea on exertion; Translations: [Other respiratory abnormalities] Episodic Other lower respiratory disease (1 source) Shortness of breath; Translations: [SHORTNESS OF BREATH] Onset: 09-18-19 Episodic Other male genital disorders (4 sources) Male erectile dysfunction, unspecified; Translations: [Erectile dysfunction] Onset: 03-30-20 Chronic Other nutritional; endocrine; and metabolic disorders (6 sources) Body mass index 40+ - severely obese; Translations: [Body mass index (BMI) 50.0-59.9, adult] Onset: 02-12-20 Chronic Other nutritional; endocrine; and metabolic disorders (5 sources) Morbid obesity 02-11-2023 Chronic Other screening for suspected conditions (not mental disorders or infectious disease) (9 sources) Encounter for screening for malignant neoplasm of prostate; Translations: [Imaging of abdomen abnormal] Onset: 08-17-19 Episodic Residual codes; unclassified (9 sources) Obstructive sleep apnea syndrome; Translations: [Obstructive sleep apnea (adult)(pediatric)] 02-05-2023 Chronic Residual codes; unclassified (1 source) Pain, unspecified; Translations: [Pain, unspecified] Onset: 04-30-20 Unclassified (5 sources) Patient encounter status; Translations: [Preop testing] 03-30-2024 Unclassified (1 source) CONTACT W/AND (SUSP) EXPOS COVID-19; Translations: [CONTACT W/AND (SUSP) EXPOS COVID-19] Onset: 09-18-19 Urinary tract infections (6 sources) Urinary tract infection, site not specified; Translations: [Urinary tract infectious disease] Onset: 09-18-19 Episodic Results Test Name Value Interpretation Reference Range Facility CHEMISTRYOrdered By: Patience Villarreal on 03-30-2024 HbA1c (Bld) [Mass fraction] 8.1 % High <=5.9% [facility] ChemAutoSS CHEMISTRYOrdered By: SYSTEM SYSTEM on 03-30-2024 [...] used for this result was chemiluminescence using [email or web address]'s Access Hybritech PSA reagent. [id number] 03-30-2024 HbA1c (Bld) [Mass fraction] 8.1 % High <=5.9 [facility] Comment on above: Performed By: #### 7 [id number] #### [facility] [address] [place] [address] PSA Totalon 03-30-2024 Prostate specific Ag [Mass/Vol] 1.2 ng/mL Normal 0.1-3.5 [facility] Comment on above: Result Comment: The concentration of PSA determined by different manufacturers can vary due to differences in assay methods and reagent specificity. Values obtained from different assay methods cannot be used interchangeably. The methodology used for this result was chemiluminescence using [employer] Access Hybritech PSA reagent. Performed By: #### 1 [id number] #### [facility] [address] [place] [address] Ambulatory Visit Summaryon 1 06-23-2022 Ambulatory Visit Summary JERRY WILSON :1970 Visit Date:04/22/2023 Ambulatory Visit Instructions Your Care Team Attending Physician - LETHA ISIDRO, Bill Cancino Primary Care Physician - Zara ISIDRO, Doron This Is Your Medications List fenofibrate (fenofibrate [...] you for choosing us for your care. Florencio [facility] General Surgery Office/Clini c Noteon 04-22-2023 General [...] (COVID-19) mRNA BNT-162b2 vax 08/28/2020 Recorded Normal [facility] Comment on above: Result Comment: Elec tronically Signed By: LETHA ISIDRO, Bill Wilcox\Date and Time Signed: 04/22/23 15:40 EST Reminderson 04-22-2023 Reminders - From: Silvia Jensen LPN To: N - Clinical; Sent: 04/22/2023 15:39:09 EST Show up: 03/09/2033 07:00:00 EDT Subject: colonoscopy recall Due Date/Time: 04/09/2033 07:00:00 EST Reminder/Recall Patient due for screening colonoscopy 04/09/2033. Normal [facility] Pathology Noteon 04-17-2023 Pathology Note [id number]#1 .00TIFF Normal [facility] Outside Colonoscopyon 2022 Outside Colonoscopy [id number] .00TIFF Normal [facility] Lab Reportson 04-09-2023 Lab Reports [id number]#1 .00TIFF Normal [facility] CULTURE URINEon 09-15-2022 CULTURE URINE Isolate 1 [...] Trimethoprim/Sulfamet hoxazole <=20 S F Normal [facility] Comment on above: Performed By: #### L IPA, CMP, CK, HSTROPN #### [facility] [address] [place] [address] Dr. Frank Nugent CBC AUTO DIFFon 09-13-2022 BASO # 0.0 103/ul Normal 0.0-0.1 [facility] Comment on above: Performed By: #### C BC #### [facility] [address] [place] [address] Dr. Frank Nugent Basophils/100 WBC (Bld) 0.2 % Normal 0.2-2.0 [facility] Comment on above: Performed By: #### C BC #### [facility] [address] [place] [address] Dr. Frank Nugent EO # 0.0 103/ul Normal 0.0-0.7 [facility] Comment on above: Performed By: #### C BC #### [facility] [address] [place] [address] Dr. Frank Nugent Eosinophils/100 WBC (Bld) 0.1 % Critically low 0.9-7.0 [facility] Comment on above: Performed By: #### C BC #### [facility] [address] [place] [address] Dr. Frank Nugent Erythrocyte distribution width (RBC) [Ratio] 12.7 % Normal 11.0-15.0 [facility] Comment on above: Performed By: #### C BC #### [facility] [address] [place] [address] Dr. Frank Nugent Hematocrit (Bld) [Volume fraction] 41.3 % Critically low 42.0-54.0 [facility] Comment on above: Performed By: #### C BC #### [facility] [address] [place] [address] Dr. Frank Nugent Hemoglobin (Bld) [Mass/Vol] 14.0 g/dL Normal 14.0-18.0 [facility] Comment on above: Performed By: #### C BC #### [facility] [address] [place] [address] Dr. Frank Nugent IG # 0.04 10e3/ul Critically high 0.00-0.03 [facility] Comment on above: Performed By: #### C BC #### [facility] [address] [place] [address] Dr. Frank Nugent IG % 0.3 % Normal 0.0-0.5 [facility] Comment on above: Performed By: #### C BC #### [facility] [address] [address] [address] Frank Nugent LYMPH # 1.0 103/ul Critically low 1.2-3.8 [facility] Comment on above: Performed By: #### C BC #### [facility] [address] [address] [address] Frank Nugent Lymphocytes/100 WBC (Bld) 6.9 % Critically low 20.5-60.0 [facility] Comment on above: Performed By: #### C BC #### [facility] [address] [place] [address] Dr. Frank Nugent MANUAL DIFF REQ NO Normal [facility] Comment on above: Performed By: #### C BC #### [facility] [address] [place] [address] Dr. Frank Nugent MCH (RBC) [Entitic mass] 29.5 pg Normal 25.9-34.0 [facility] Comment on above: Performed By: #### C BC #### [facility] [address] [place] [address] Dr. Frank Nugent MCHC (RBC) [Mass/Vol] 33.9 g/dL Normal 29.9-35.2 [facility] Comment on above: Performed By: #### C BC #### [facility] [address] [place] [address] Dr. Frank Nugent MCV (RBC) [Entitic vol] 87.1 fL Normal 80.0-94.0 [facility] Comment on above: Performed By: #### C BC #### [facility] [address] [address] [address] Frank Nugent MONO # 1.3 103/ul Critically high 0.3-0.8 [facility] Comment on above: Performed By: #### C BC #### [facility] [address] [address] [address] Frank Nugent Monocytes/100 WBC (Bld) 9.0 % Normal 1.7-12.0 [facility] Comment on above: Performed By: #### C BC #### [facility] [address] [address] [address] Frank Nugent NEUT # 12.2 103/ul Critically high 1.4-6.5 [facility] Comment on above: Performed By: #### C BC #### [facility] [address] [address] [address] Frank Nugent Neutrophils/100 WBC (Bld) 83.5 % Critically high 43.0-75.0 [facility] Comment on above: Performed By: #### C BC #### [facility] [address] [address] [address] Frank Nugent Platelet mean volume (Bld) [Entitic vol] 11.5 fL Normal 9.5-13.5 [facility] Comment on above: Performed By: #### C BC #### [facility] [address] [place] [address] Dr. Frank Nugent PLT 216 103/ul Normal 150-450 [facility] Comment on above: Performed By: #### C BC #### [facility] [address] [place] [address] Dr. Frank Nugent RBC 4.74 106/ul Normal 4.70-6.10 [facility] Comment on above: Performed By: #### C BC #### [facility] [address] [place] [address] Dr. Frank Nugent WBC 14.6 103/ul Critically high 4.0-11.0 [facility] Comment on above: Performed By: #### C BC #### [facility] [address] [place] [address] Dr. Frank Nugent CPKon 09-13-2022 CK [Catalytic activity/Vol] 260 U/L Normal 39-308 [facility] Comment on above: Performed By: #### L IPA, CMP, CK, HSTROPN #### [facility] [address] [address] [address] Frank Nugent CULTURE BLOODon 09-13-2022 Microscopic examination of blood, culture Culture Observations: NO GROWTH AT 5 DAYS. Normal [facility] Comment on above: Performed By: #### L IPA, CMP, CK, HSTROPN #### [facility] [address] [place] [address] Dr. Frank Nugent Microscopic examination of blood, culture Culture Observations: NO GROWTH AT 5 DAYS. Normal [facility] Comment on above: Performed By: #### L IPA, CMP, CK, HSTROPN #### [facility] [address] [place] [address] Dr. rFank Nugent Covid-19 PCR [facility]on SARS-CoV-2 (COVID-19) RNA JABIER+probe Ql (Unsp spec) Not detected Normal NOT DETECTED [facility] Comment on above: Result Comment: This test is not yet approved or cleared by the [place] FDA. When there are no FDA-approved or cleared tests available, and other criteria are met, FDA can make tests available under an emergency access mechanism called an Emergency Use Authorization (EUA). The EUA for this test is supported by the [place] of Health and Human Service's (HHS's) declaration [...] #### L IPA, CMP, CK, HSTROPN #### [facility] [address] [place] [address] Dr. Frank Nugent ER URINE PROFILEon 3 Bilirubin Ql (U) Negative Normal NEGATIVE [facility] Comment on above: Performed By: #### L IPA, CMP, CK, HSTROPN #### [facility] [address] [place] [address] Dr. Frank Nugent Clarity (U) CLEAR Normal CLEAR [facility] Comment on above: Performed By: #### L IPA, CMP, CK, HSTROPN #### [facility] [address] [place] [address] Dr. Frank Nugent Color (U) YELLOW Normal YELLOW [facility] Comment on above: Performed By: #### L IPA, CMP, CK, HSTROPN #### [facility] [address] [address] [address] Frank VEGA A micrscopic examination will be performed if indicated. Normal [facility] Comment on above: Performed By: #### L IPA, CMP, CK, HSTROPN #### [facility] [address] [place] [address] Dr. Frank Nugent Glucose Ql (U) 250 mg/dl Abnormal NEGATIVE [facility] Comment on above: Performed By: #### L IPA, CMP, CK, HSTROPN #### [facility] [address] [place] [address] Dr. Frank Nugent Hemoglobin Ql (U) SMALL Abnormal NEGATIVE [facility] Comment on above: Performed By: #### L IPA, CMP, CK, HSTROPN #### [facility] [address] [place] [address] Dr. Frank Nugent Ketones Ql (U) Negative Normal NEGATIVE [facility] Comment on above: Performed By: #### L IPA, CMP, CK, HSTROPN #### [facility] [address] [place] [address] Dr. Frank Nugent LEUKOCYTES TRACE Abnormal NEGATIVE [facility] Comment on above: Performed By: #### L IPA, CMP, CK, HSTROPN #### [facility] [address] [address] [address] Frank Nugent Nitrite Ql (U) Negative Normal NEGATIVE [facility] Comment on above: Performed By: #### L IPA, CMP, CK, HSTROPN #### [facility] [address] [place] [address] Dr. Frank Nugent pH (U) 5.5 [pH] Normal 5-9 [facility] Comment on above: Performed By: #### L IPA, CMP, CK, HSTROPN #### [facility] [address] [address] [address] Frank Nugent SPEC GRAVITY 1.020 Normal 1.005-<=1.025 [facility] Comment on above: Performed By: #### L IPA, CMP, CK, HSTROPN #### [facility] [address] [place] [address] Dr. Frank Nugent UA PROTEIN TRACE Normal NEGATIVE/ TRACE [facility] Comment on above: Performed By: #### L IPA, CMP, CK, HSTROPN #### [facility] [address] [place] [address] Dr. Frank Nugent UR MICRO IND INDICATED Normal [facility] Comment on above: Performed By: #### L IPA, CMP, CK, HSTROPN #### [facility] [address] [place] [address] Dr. Frank Nugent Urobilinogen Qn (U) 0.2 {Moni'U}/dL Normal 0.2 - 1. 0 [facility] Comment on above: Performed By: #### L IPA, CMP, CK, HSTROPN #### [facility] [address] [place] [address] Dr. Frank Nugent LACTATE/LACTIC ACIDon 2022 Lactate [Moles/Vol] 2.1 mmol/L Critically high 0.4-2.0 [facility] Comment on above: Performed By: #### L ACT #### [facility] [address] [place] [address] Dr. Frank Nugent LIPASEon 09-13-2022 Lipase [Catalytic activity/Vol] 116.0 U/L Normal 73.0-393.0 [facility] Comment on above: Performed By: #### L IPA, CMP, CK, HSTROPN #### [facility] [address] [place] [address] Dr. Frank Nugent PROF 14(COMP METB)on 023 Albumin [Mass/Vol] 4.0 g/dL Normal 3.4-5.0 [facility] Comment on above: Performed By: #### L IPA, CMP, CK, HSTROPN #### [facility] [address] [place] [address] Dr. Frank Nugent Albumin/Globulin [Mass ratio] 1.0 {ratio} Normal [facility] Comment on above: Performed By: #### L IPA, CMP, CK, HSTROPN #### [facility] [address] [place] [address] Dr. Frank Nugent ALP [Catalytic activity/Vol] 70 U/L Normal 46-116 [facility] Comment on above: Performed By: #### L IPA, CMP, CK, HSTROPN #### [facility] [address] [place] [address] Dr. Frank Nugent ALT [Catalytic activity/Vol] 55 U/L Normal 16-63 [facility] Comment on above: Performed By: #### L IPA, CMP, CK, HSTROPN #### [facility] [address] [place] [address] Dr. Frank Nugent Anion gap [Moles/Vol] 14.0 mmol/L Normal [facility] Comment on above: Performed By: #### L IPA, CMP, CK, HSTROPN #### [facility] [address] [place] [address] Dr. Frank Nugent AST [Catalytic activity/Vol] 28 U/L Normal 15-37 [facility] Comment on above: Performed By: #### L IPA, CMP, CK, HSTROPN #### [facility] [address] [place] [address] Dr. Frank Nugent Bilirubin [Mass/Vol] 2.1 mg/dL Critically high 0.2-1.0 [facility] Comment on above: Performed By: #### L IPA, CMP, CK, HSTROPN #### [facility] [address] [place] [address] Dr. Frank Nugent Calcium [Mass/Vol] 9.3 mg/dL Normal 8.5-10.1 [facility] Comment on above: Performed By: #### L IPA, CMP, CK, HSTROPN #### [facility] [address] [place] [address] Dr. Frank Nugent Chloride [Moles/Vol] 100 mmol/L Normal 98-107 [facility] Comment on above: Performed By: #### L IPA, CMP, CK, HSTROPN #### [facility] [address] [place] [address] Dr. Frank Nugent CO2 [Moles/Vol] 24.7 mmol/L Normal 21.0-32.0 [facility] Comment on above: Performed By: #### L IPA, CMP, CK, HSTROPN #### [facility] [address] [place] [address] Dr. Frank Nugent Creatinine [Mass/Vol] 1.31 mg/dL Critically high 0.70-1.30 [facility] Comment on above: Performed By: #### L IPA, CMP, CK, HSTROPN #### [facility] [address] [place] [address] Dr. Frank Nugent EGFR-AF SURINAMESE >60 Normal >=60 [facility] Comment on above: Performed By: #### L IPA, CMP, CK, HSTROPN #### [facility] [address] [place] [address] Dr. Frank Nugent EGFR-NON AF SURINAMESE 58 mL/min/1.73m2 Critically low >=60 [facility] Comment on above: Performed By: #### L IPA, CMP, CK, HSTROPN #### [facility] [address] [place] [address] Dr. Frank Nugent Globulin (S) [Mass/Vol] 4.0 g/dL Normal [facility] Comment on above: Performed By: #### L IPA, CMP, CK, HSTROPN #### [facility] [address] [place] [address] Dr. Frank Nugent Glucose [Mass/Vol] 244 mg/dL Critically high 74-106 T [facility] Comment on above: Performed By: #### L IPA, CMP, CK, HSTROPN #### [facility] [address] [address] [address] Frank Nugent Potassium [Moles/Vol] 3.7 mmol/L Normal 3.5-5.1 [facility] Comment on above: Performed By: #### L IPA, CMP, CK, HSTROPN #### [facility] [address] [address] [address] Frank Nugent Protein [Mass/Vol] 8.0 g/dL Normal 6.4-8.2 [facility] Comment on above: Performed By: #### L IPA, CMP, CK, HSTROPN #### [facility] [address] [address] [address] Frank Nugent Sodium [Moles/Vol] 135 mmol/L Critically low 136-145 Th [facility] Comment on above: Performed By: #### L IPA, CMP, CK, HSTROPN #### [facility] [address] [place] [address] Dr. Frank Nugent Urea nitrogen [Mass/Vol] 19.0 mg/dL Critically high 7.0-18.0 [facility] Comment on above: Performed By: #### L IPA, CMP, CK, HSTROPN #### [facility] [address] [address] [address] Frank Nugent Urea nitrogen/Creatinine [Mass ratio] 14.5 mg/mg Normal [facility] Comment on above: Performed By: #### L IPA, CMP, CK, HSTROPN #### [facility] [address] [place] [address] Dr. Frank Nugent PROTIMEon 09-13-2022 INR Coag (PPP) [Relative time] 0.97 {INR} Normal [facility] Comment on above: Performed By: #### L IPA, CMP, CK, HSTROPN #### [facility] [address] [place] [address] Dr. Frank Nugent INR GUIDELINES SEE BELOW Normal [facility] Comment on above: Result Comment: GHASSAN RED INR: 2.0 - 3.0 CONDITIONS NOT LISTED BELOW 2.5 - 3.5 FOR PROSTHETIC HEART VALVE REPLACEMENT 2.5 - 3.5 RECURRENT THROMBOSIS Performed By: #### L IPA, CMP, CK, HSTROPN #### [facility] [address] [address] [address] Frank uNgent PT Coag (PPP) [Time] 10.3 s Normal 9.0-11.6 [facility] Comment on above: Performed By: #### L IPA, CMP, CK, HSTROPN #### [facility] [address] [place] [address] Dr. Frank Nugent SYMPTOMATIC COVID-19 ANTIGEN on 09-13-2022 EUA Statement SEE BELOW Normal [facility] Comment on above: Result Comment: [...] #### L IPA, CMP, CK, HSTROPN #### [facility] [address] [place] [address] Dr. Frank Nugent SARS-CoV-2 (COVID-19) RNA JABIER+probe Ql (Unsp spec) Negative Normal NEGATIVE [facility] Comment on above: Performed By: #### L IPA, CMP, CK, HSTROPN #### [facility] [address] [place] [address] Dr. Frank Nugent TROPONIN, HIGH SENSITIVITYon 09-13-2022 HSTROP 5.4 pg/mL Normal 4.0-76.1 [facility] Comment on above: Result Comment: CUT- OFF POINTS HAVE BEEN ESTABLISHED BASED ON THE FOURTH UNIVERSAL DEFINITIONS OF MYOCARDIAL INFARCTION. THE UPPER REFERENCE LIMIT (URL) OF TROPONIN, DEFINED THE 99TH PERCENTILE OF cTnI DISTRIBUTION IN A REFERENCE POPULATION, HAS BEEN CONFIRMED THE DECISION THRESHOLD FOR CO DIAGNOSIS. Performed By: #### L IPA, CMP, CK, HSTROPN #### [facility] [address] [place] [address] Dr. Frank Nugent URINE MICROSCOPIC ONLYon BACTERIA SMALL Abnormal NONE SEEN [facility] Comment on above: Performed By: #### L IPA, CMP, CK, HSTROPN #### [facility] [address] [place] [address] Dr. Frank Nugent Bacteria identified Cx Nom (U) INDICATED Normal [facility] Comment on above: Performed By: #### L IPA, CMP, CK, HSTROPN #### [facility] [address] [place] [address] Dr. Frank Nugent CAST NONE SEEN Normal NONE SEEN [facility] Comment on above: Performed By: #### L IPA, CMP, CK, HSTROPN #### [facility] [address] [place] [address] Dr. Frank Nugent Crystals LM Nom (Urine sed) NONE SEEN Normal NONE SEEN [facility] Comment on above: Performed By: #### L IPA, CMP, CK, HSTROPN #### [facility] [address] [place] [address] Dr. Frank Nugent Epithelial cells LM Ql (Urine sed) FEW Abnormal NONE SEEN /RARE [facility] Comment on above: Performed By: #### L IPA, CMP, CK, HSTROPN #### [facility] [address] [place] [address] Dr. Frank Nugent MUCOUS NONE SEEN Normal NONE SEEN [facility] Comment on above: Performed By: #### L IPA, CMP, CK, HSTROPN #### [facility] [address] [place] [address] Dr. Frank Nugent RBC 2-5 Abnormal 0-2 [facility] Comment on above: Performed By: #### L IPA, CMP, CK, HSTROPN #### [facility] [address] [place] [address] Dr. Frank Nugent WBC 5-10 Abnormal NONE SEEN [facility] Comment on above: Performed By: #### L IPA, CMP, CK, HSTROPN #### [facility] [address] [place] [address] Dr. Frank Nugent XR CHEST 1 Von [...] YURY FERNANDEZ Date: 2022-09-13 13:36 Normal [facility] INSULINon 08-12-2022 Insulin 73.3 uIU/mL Critically high 2.6-24.9 [facility] Comment on above: Performed By: #### L IPA, CMP, CK, HSTROPN #### [facility] [address] [place] [address] Dr. Frank Nugent BNPon 08-10-2022 Natriuretic peptide B (Bld) [Mass/Vol] 48.0 pg/mL Normal <=900.0 [facility] Comment on above: Performed By: #### L IPA, CMP, CK, HSTROPN #### [facility] [address] [address] [address] Frank Nugent CBC AUTO DIFFon 08-10-2022 BASO # 0.0 103/ul Normal 0.0-0.1 [facility] Comment on above: Performed By: #### C BC #### [facility] [address] [place] [address] Dr. Frank Nugent Basophils/100 WBC (Bld) 0.3 % Normal 0.2-2.0 [facility] Comment on above: Performed By: #### C BC #### [facility] [address] [place] [address] Dr. Frank Nugent EO # 0.2 103/ul Normal 0.0-0.7 [facility] Comment on above: Performed By: #### C BC #### [facility] [address] [place] [address] Dr. Frank Nugent Eosinophils/100 WBC (Bld) 4.9 % Normal 0.9-7.0 [facility] Comment on above: Performed By: #### C BC #### [facility] [address] [place] [address] Dr. Frank Nugent Erythrocyte distribution width (RBC) [Ratio] 12.8 % Normal 11.0-15.0 [facility] Comment on above: Performed By: #### C BC #### [facility] [address] [place] [address] Dr. Frank Nugent Hematocrit (Bld) [Volume fraction] 43.8 % Normal 42.0-54.0 [facility] Comment on above: Performed By: #### C BC #### [facility] [address] [place] [address] Dr. Frank Nugent Hemoglobin (Bld) [Mass/Vol] 15.4 g/dL Normal 14.0-18.0 [facility] Comment on above: Performed By: #### C BC #### [facility] [address] [place] [address] Dr. Frank Nugent IG # 0.00 10e3/ul Normal 0.00-0.03 [facility] Comment on above: Performed By: #### C BC #### [facility] [address] [place] [address] Dr. Frank Nugent IG % 0.0 % Normal 0.0-0.5 [facility] Comment on above: Performed By: #### C BC #### [facility] [address] [place] [address] Dr. Frank Nugent LYMPH # 0.8 103/ul Critically low 1.2-3.8 [facility] Comment on above: Performed By: #### C BC #### [facility] [address] [place] [address] Dr. Frank Nugent Lymphocytes/100 WBC (Bld) 23.9 % Normal 20.5-60.0 [facility] Comment on above: Performed By: #### C BC #### [facility] [address] [place] [address] Dr. Frank Nugent MANUAL DIFF REQ NO Normal [facility] Comment on above: Performed By: #### C BC #### [facility] [address] [place] [address] Dr. Frank Nugent MCH (RBC) [Entitic mass] 30.0 pg Normal 25.9-34.0 [facility] Comment on above: Performed By: #### C BC #### [facility] [address] [place] [address] Dr. Frank Nugent MCHC (RBC) [Mass/Vol] 35.2 g/dL Normal 29.9-35.2 [facility] Comment on above: Performed By: #### C BC #### [facility] [address] [place] [address] Dr. Frank Nugent MCV (RBC) [Entitic vol] 85.2 fL Normal 80.0-94.0 [facility] Comment on above: Performed By: #### C BC #### [facility] [address] [place] [address] Dr. Frank Nugent MONO # 0.4 103/ul Normal 0.3-0.8 [facility] Comment on above: Performed By: #### C BC #### [facility] [address] [place] [address] Dr. Frank Nugent Monocytes/100 WBC (Bld) 12.8 % Critically high 1.7-12.0 [facility] Comment on above: Performed By: #### C BC #### [facility] [address] [place] [address] Dr. Frank Nugent NEUT # 1.9 103/ul Normal 1.4-6.5 [facility] Comment on above: Performed By: #### C BC #### [facility] [address] [address] [address] Frank Nugent Neutrophils/100 WBC (Bld) 58.1 % Normal 43.0-75.0 [facility] Comment on above: Performed By: #### C BC #### [facility] [address] [address] [address] Frank Nugent Platelet mean volume (Bld) [Entitic vol] 11.3 fL Normal 9.5-13.5 [facility] Comment on above: Performed By: #### C BC #### [facility] [address] [address] [address] Frank Nugent PLT 224 103/ul Normal 150-450 [facility] Comment on above: Performed By: #### C BC #### [facility] [address] [address] [address] Frank Nugent RBC 5.14 106/ul Normal 4.70-6.10 [facility] Comment on above: Performed By: #### C BC #### [facility] [address] [address] [address] Frank Nugent WBC 3.3 103/ul Critically low 4.0-11.0 [facility] Comment on above: Performed By: #### C BC #### [facility] [address] [place] [address] Dr. Frank Nugent FREE THYROXINE INDEX T7on FTI 2.63 Normal 1.30-4.50 [facility] Comment on above: Performed By: #### L IPA, CMP, CK, HSTROPN #### [facility] [address] [address] [address] Frank Nugent T3U 35.0 % Normal 33.0-40.0 [facility] Comment on above: Performed By: #### L IPA, CMP, CK, HSTROPN #### [facility] [address] [address] [address] Frank Nugent T4 [Mass/Vol] 7.50 ug/dL Normal 4.50-12.10 [facility] Comment on above: Performed By: #### L IPA, CMP, CK, HSTROPN #### [facility] [address] [address] [address] Frank Nugent GLYCOHEMOGLOBIN A1Con 2022 ADA RECOMMENDATION SEE BELOW Normal [facility] Comment on above: Result Comment: ADA RECOMMENDED LIMIT 4.0 - 6.0 ADA THERAPEUTIC TARGET < 7.0 ACTION SUGGESTED > 7.0 Performed By: #### A 1C #### [facility] [address] [address] [address] Frank Nugent Glucose [Mass/Vol] 169 mg/dL Normal [facility] Comment on above: Performed By: #### A 1C #### [facility] [address] [place] [address] Dr. Frank Nugent HbA1c (Bld) [Mass fraction] 7.5 % Critically high 4.5-6.2 [facility] Comment on above: Performed By: #### A 1C #### [facility] [address] [place] [address] Dr. Frank Nugent LIPID PROFILEon 08-10-2022 CHOL-HDL RATIO NORM SEE BELOW Normal [facility] Comment on above: Result Comment: 3.3 - 4.4 LOW RISK 4.4 - 7.1 AVERAGE RISK 7.1 - 11.0 MODERATE RISK >11.0 HIGH RISK Performed By: #### L IPA, CMP, CK, HSTROPN #### [facility] [address] [address] [address] Frank Nugent Cholesterol [Mass/Vol] 183 mg/dL Normal <=200 [facility] Comment on above: Performed By: #### L IPA, CMP, CK, HSTROPN #### [facility] [address] [address] [address] Frank Nugent Cholesterol in HDL [Mass/Vol] 29 mg/dL Critically low 40-60 [facility] Comment on above: Performed By: #### L IPA, CMP, CK, HSTROPN #### [facility] [address] [address] [address] Frank Nugent Cholesterol in LDL [Mass/Vol] 83.2 mg/dL Normal [facility] Comment on above: Performed By: #### L IPA, CMP, CK, HSTROPN #### [facility] [address] [address] [address] Frank Nugent Cholesterol.total/Ch olesterol in HDL [Mass ratio] 6.3 {ratio} Normal [facility] Comment on above: Performed By: #### L IPA, CMP, CK, HSTROPN #### [facility] [address] [address] [address] Frank Nugent HDL NORMAL > or = 60 mg/dl - LO W CARDIOVASCULAR RISK <40 mg/dl - HIGH CARDIOVASCULAR RISK Normal [facility] Comment on above: Performed By: #### L IPA, CMP, CK, HSTROPN #### [facility] [address] [place] [address] Dr. Frank Nugent LDL CALC NORMAL SEE BELOW Normal [facility] Comment on above: Result Comment: <100 mg/dl OPTIMAL 100 - 129 mg/dl NEAR OR ABOVE OPTIMAL 130 - 159 mg/dl BORDERLINE HIGH 160 - 189 mg/dl HIGH >190 mg/dl VERY HIGH Performed By: #### L IPA, CMP, CK, HSTROPN #### [facility] [address] [place] [address] Dr. Frank Nugent Triglyceride [Mass/Vol] 354 mg/dL Critically high <=150 [facility] Comment on above: Performed By: #### L IPA, CMP, CK, HSTROPN #### [facility] [address] [place] [address] Dr. Frank Nugent VLDL CALC 70.8 mg/dL Normal [facility] Comment on above: Performed By: #### L IPA, CMP, CK, HSTROPN #### [facility] [address] [address] [address] Frank Nugent PROF 14(COMP METB)on 023 Albumin [Mass/Vol] 4.4 g/dL Normal 3.4-5.0 [facility] Comment on above: Performed By: #### L IPA, CMP, CK, HSTROPN #### [facility] [address] [place] [address] Dr. Frank Nugent Albumin/Globulin [Mass ratio] 1.2 {ratio} Normal [facility] Comment on above: Performed By: #### L IPA, CMP, CK, HSTROPN #### [facility] [address] [place] [address] Dr. Frank Nugent ALP [Catalytic activity/Vol] 81 U/L Normal 46-116 [facility] Comment on above: Performed By: #### L IPA, CMP, CK, HSTROPN #### [facility] [address] [place] [address] Dr. Frank Nugent ALT [Catalytic activity/Vol] 102 U/L Critically high 16-63 [facility] Comment on above: Performed By: #### L IPA, CMP, CK, HSTROPN #### [facility] [address] [place] [address] Dr. Frank Nugent Anion gap [Moles/Vol] 14.6 mmol/L Normal [facility] Comment on above: Performed By: #### L IPA, CMP, CK, HSTROPN #### [facility] [address] [place] [address] Dr. Frank Nugent AST [Catalytic activity/Vol] 55 U/L Critically high 15-37 [facility] Comment on above: Performed By: #### L IPA, CMP, CK, HSTROPN #### [facility] [address] [place] [address] Dr. Frank Nugent Bilirubin [Mass/Vol] 1.0 mg/dL Normal 0.2-1.0 [facility] Comment on above: Performed By: #### L IPA, CMP, CK, HSTROPN #### [facility] [address] [place] [address] Dr. Frank Nugent Calcium [Mass/Vol] 9.5 mg/dL Normal 8.5-10.1 [facility] Comment on above: Performed By: #### L IPA, CMP, CK, HSTROPN #### [facility] [address] [address] [address] Frank Nugent Chloride [Moles/Vol] 103 mmol/L Normal 98-107 [facility] Comment on above: Performed By: #### L IPA, CMP, CK, HSTROPN #### [facility] [address] [address] [address] Frank Nugent CO2 [Moles/Vol] 23.4 mmol/L Normal 21.0-32.0 [facility] Comment on above: Performed By: #### L IPA, CMP, CK, HSTROPN #### [facility] [address] [address] [address] Frank Nugent Creatinine [Mass/Vol] 0.88 mg/dL Normal 0.70-1.30 [facility] Comment on above: Performed By: #### L IPA, CMP, CK, HSTROPN #### [facility] [address] [address] [address] Frank Nugent EGFR-AF SURINAMESE >60 Normal >=60 [facility] Comment on above: Performed By: #### L IPA, CMP, CK, HSTROPN #### [facility] [address] [address] [address] Frank Nugent EGFR-NON AF SURINAMESE >60 Normal >=60 [facility] Comment on above: Performed By: #### L IPA, CMP, CK, HSTROPN #### [facility] [address] [address] [address] Frank Nugent Globulin (S) [Mass/Vol] 3.6 g/dL Normal [facility] Comment on above: Performed By: #### L IPA, CMP, CK, HSTROPN #### [facility] [address] [address] [address] Frank Nugent Glucose [Mass/Vol] 164 mg/dL Critically high 74-106 T [facility] Comment on above: Performed By: #### L IPA, CMP, CK, HSTROPN #### [facility] [address] [address] [address] Frank Nugent Potassium [Moles/Vol] 4.0 mmol/L Normal 3.5-5.1 [facility] Comment on above: Performed By: #### L IPA, CMP, CK, HSTROPN #### [facility] [address] [place] [address] Dr. Frank Nugent Protein [Mass/Vol] 8.0 g/dL Normal 6.4-8.2 [facility] Comment on above: Performed By: #### L IPA, CMP, CK, HSTROPN #### [facility] [address] [place] [address] Dr. Frank Nugent Sodium [Moles/Vol] 137 mmol/L Normal 136-145 [facility] Comment on above: Performed By: #### L IPA, CMP, CK, HSTROPN #### [facility] [address] [place] [address] Dr. Frank Nugent Urea nitrogen [Mass/Vol] 16.0 mg/dL Normal 7.0-18.0 [facility] Comment on above: Performed By: #### L IPA, CMP, CK, HSTROPN #### [facility] [address] [place] [address] Dr. Frank Nugent Urea nitrogen/Creatinine [Mass ratio] 18.2 mg/mg Normal [facility] Comment on above: Performed By: #### L IPA, CMP, CK, HSTROPN #### [facility] [address] [place] [address] Dr. Frank Nugent TSHon 08-10-2022 TSH 0.879 uIU/mL Normal 0.358-3.740 [facility] Comment on above: Performed By: #### L IPA, CMP, CK, HSTROPN #### [facility] [address] [place] [address] Dr. Frank Nugent URIC ACID SERUMon 08-10-2022 Urate [Mass/Vol] 5.1 mg/dL Normal 3.5-7.2 [facility] Comment on above: Performed By: #### L IPA, CMP, CK, HSTROPN #### [facility] [address] [place] [address] Dr. Frank Nugent VITAMIN D 25 OHon 08-10-2022 VIT D 25-OH 12.1 ng/mL Normal [facility] Comment on above: Performed By: #### P SASC, VITAD #### [facility] [address] [address] [address] Frank Nugent VIT D RANGES SEE BELOW Normal [facility] Comment on above: Result Comment: <20 ng/mL Vit D deficient 20 - <30 ng/mL Vit D insufficient 30 - 100 ng/mL Vit D sufficient >100 ng/mL Potential Toxicity Performed By: #### P SASC, VITAD #### [facility] [address] [address] [address] Frank Nugent Urinalysison 04-25-2021 Appearance (U) Clear Normal Clear [facility] Comment on above: Order Comment: Name Collection Type:: Clean-Voided Midstream Performed By: #### U A #### [facility] [address] [place] [address] [place] Bilirubin,Urine Negative Normal Negative [facility] Comment on above: Order Comment: Name Collection Type:: Clean-Voided Midstream Performed By: #### U A #### [facility] [address] [place] [address] [place] Color (U) Yellow Normal Yellow [facility] Comment on above: Order Comment: Name Collection Type:: Clean-Voided Midstream Performed By: #### U A #### [facility] [address] [id number] [place] Glucose Ql (U) Normal Normal Normal [facility] Comment on above: Order Comment: Name Collection Type:: Clean-Voided Midstream Performed By: #### U A #### [facility] [address] [id number] [place] Ketones Ql (U) Negative Normal Negative [facility] Comment on above: Order Comment: Name Collection Type:: Clean-Voided Midstream Performed By: #### U A #### [facility] [address] [id number] [place] Leukocyte esterase Test strip Ql (U) Negative Normal Negative [facility] Comment on above: Order Comment: Name Collection Type:: Clean-Voided Midstream Performed By: #### U A #### [facility] [address] [place] [address] [place] Nitrite,Urine Negative Normal Negative [facility] Comment on above: Order Comment: Name Collection Type:: Clean-Voided Midstream Performed By: #### U A #### [facility] [address] [place] [address] [place] Occult Blood,Urine Negative Normal Negative [facility] Comment on above: Order Comment: Name Collection Type:: Clean-Voided Midstream Result Comment: PERF ORMED BY: [place] [address] [employer]S ASSISTANT HARESH LUI M.D. Performed By: #### U A #### [facility] [address] [place] [address] pH (U) 6.0 [pH] Normal 5.0-9.0 [facility] Comment on above: Order Comment: Name Collection Type:: Clean-Voided Midstream Performed By: #### U A #### [facility] [address] [place] [address] [place] Protein,Urine Negative Normal Negative [facility] Comment on above: Order Comment: Name Collection Type:: Clean-Voided Midstream Performed By: #### U A #### [facility] [address] [place] [address] [place] Specificy [place],Urine 1.018 Normal 1.001-1.030 [facility] Comment on above: Order Comment: Name Collection Type:: Clean-Voided Midstream Performed By: #### U A #### [facility] [address] [place] [address] [place] Urobilinogen,Urine Normal Normal Normal [facility] Comment on above: Order Comment: Name Collection Type:: Clean-Voided Midstream Performed By: #### U A #### [place] [address] [place] XR chest 1V portableon 04-25 XR chest 1V portable [facility] [place] [address] XRay Report Signed Patient: Jerry Wilson MR#: [id number] : 1970 Acct:[id number] Age/Sex: 50 / M ADM Date: 04/24/21 Loc: ER Room: Type: [facility] ER Attending Dr: Ordering Provider: Nitesh [...] Daphne Hutchinson M.D.04/25/2021 7:58 AM Dictation Location: [place] [address] Transcribed By: [facility] 04/25/21 075 Dictated By: Daphne Hutchinson MD 04/25/21 075 Signed By: 04/25/21 075 Normal [facility] B-Type Natriuretic Peptideon 04-24-2021 Natriuretic peptide B (Bld) [Mass/Vol] 20.0 pg/mL Normal 5-100 [facility] Comment on above: Result Comment: PERF ORMED BY: [place] [address] PATHOLOGIST WORKERS COMPENSATION CLAIMS ASSISTANT HARESH LUI M.D. Performed By: #### H S TROP, CMP, CBC, BNP, MG #### [address] COVID-19 Antigenon 1 COVID-19 Antigen Results [...] its performance Adolfo Disclaimer characteristic determined by [employer] and Adolfo Disclaimer validated at [facility]. This Adolfo Disclaimer test has not been [...] Emergency Use Authorization for Coronavirus Adolfo Disclaimer iseas during the Public Health Emergency) Adolfo Disclaimer [...] is terminated or revoked sooner. PERFORMED BY: [place] [address] PATHOLOGIST WORKERS COMPENSATION CLAIMS ASSISTANT HARESH LUI M.D. Normal [facility] Comment on above: Performed By: #### C OVID-19 ADOLFO, SOFIAPOS #### [address] Complete Blood Count Auto Di ffon 04-24-2021 Basophils (Bld) [#/Vol] 0.0 10*3/uL Normal 0.0-0.2 [facility] Comment on above: Result Comment: PERF ORMED BY: [place] [address] PATHOLOGIST WORKERS COMPENSATION CLAIMS ASSISTANT HARESH LUI M.D. Performed By: #### H S TROP, CMP, CBC, BNP, MG #### [address] Basophils/100 WBC (Bld) 0.7 % Normal . [facility] Comment on above: Performed By: #### H S TROP, CMP, CBC, BNP, MG #### [address] Eosinophils (Bld) [#/Vol] 0.1 10*3/uL Normal 0.0-0.45 [facility] Comment on above: Performed By: #### H S TROP, CMP, CBC, BNP, MG #### [address] Eosinophils/100 WBC (Bld) 1.8 % Normal . [facility] Comment on above: Performed By: #### H S TROP, CMP, CBC, BNP, MG #### [address] Erythrocyte distribution width (RBC) [Ratio] 12.9 % Normal 12.0-14.8 [facility] Comment on above: Performed By: #### H S TROP, CMP, CBC, BNP, MG #### [address] [address] [place] Hematocrit (Bld) [Volume fraction] 43.7 % Normal 38.8-50.0 [facility] Comment on above: Performed By: #### H S TROP, CMP, CBC, BNP, MG #### [address] Hemoglobin (Bld) [Mass/Vol] 15.0 g/dL Normal 13.0-17.0 [facility] Comment on above: Performed By: #### H S TROP, CMP, CBC, BNP, MG #### [address] Lymphocytes (Bld) [#/Vol] 0.7 10*3/uL Low 1.00-4.8 [facility] Comment on above: Performed By: #### H S TROP, CMP, CBC, BNP, MG #### [address] Lymphocytes/100 WBC (Bld) 14.0 % Normal . [facility] Comment on above: Performed By: #### H S TROP, CMP, CBC, BNP, MG #### [address] MCH (RBC) [Entitic mass] 29.7 pg Normal 27.5-35.2 [facility] Comment on above: Performed By: #### H S TROP, CMP, CBC, BNP, MG #### [address] MCV (RBC) [Entitic vol] 86.4 fL Normal 83.5-101 [facility] Comment on above: Performed By: #### H S TROP, CMP, CBC, BNP, MG #### [address] Mean Corpuscular HGB Conc 34.4 g/dL Normal 32.5-35.6 [facility] Comment on above: Performed By: #### H S TROP, CMP, CBC, BNP, MG #### [address] Monocytes (Bld) [#/Vol] 1.1 10*3/uL High 0.0-0.8 [facility] Comment on above: Performed By: #### H S TROP, CMP, CBC, BNP, MG #### [facility] [address] [place] [address] Monocytes/100 WBC (Bld) 21.3 % Normal . [facility] Comment on above: Performed By: #### H S TROP, CMP, CBC, BNP, MG #### [facility] [address] [place] [address] Neutrophils (Bld) [#/Vol] 3.2 10*3/uL Normal 1.8-7.7 [facility] Comment on above: Performed By: #### H S TROP, CMP, CBC, BNP, MG #### [address] Neutrophils/100 WBC (Bld) 62.2 % Normal . [facility] Comment on above: Performed By: #### H S TROP, CMP, CBC, BNP, MG #### [place] [address] [place] Nucleated RBC/100 WBC (Bld) [Ratio] 0.2 % Normal 0-0.5 [facility] Comment on above: Performed By: #### H S TROP, CMP, CBC, BNP, MG #### [address] Platelet mean volume (Bld) [Entitic vol] 9.6 fL Normal 6.6-10.1 [facility] Comment on above: Performed By: #### H S TROP, CMP, CBC, BNP, MG #### [facility] [address] [place] [address] [place] Platelets (Bld) [#/Vol] 201 10*3/uL Normal 150-450 [facility] Comment on above: Performed By: #### H S TROP, CMP, CBC, BNP, MG #### [place] [address] [place] RBC (Bld) [#/Vol] 5.06 10*6/uL Normal 3.90-5.60 [facility] Comment on above: Performed By: #### H S TROP, CMP, CBC, BNP, MG #### [facility] [address] [place] [address] WBC (Bld) [#/Vol] 5.2 10*3/uL Normal 4.5-11.0 [facility] Comment on above: Performed By: #### H S TROP, CMP, CBC, BNP, MG #### [facility] [address] [place] [address] Comprehensive Metabolic Pane alan 04-24-2021 Albumin [Mass/Vol] 4.2 g/dL Normal 3.2-5.5 [facility] Comment on above: Performed By: #### H S TROP, CMP, CBC, BNP, MG #### [address] Albumin/Globulin [Mass ratio] 1.3 {ratio} Normal [facility] Comment on above: Performed By: #### H S TROP, CMP, CBC, BNP, MG #### [facility] [address] [place] [address] ALP [Catalytic activity/Vol] 55 U/L Normal 32-92 [facility] Comment on above: Performed By: #### H S TROP, CMP, CBC, BNP, MG #### [facility] [address] [place] [address] ALT [Catalytic activity/Vol] 85 U/L High 10-60 [facility] Comment on above: Performed By: #### H S TROP, CMP, CBC, BNP, MG #### [facility] [address] [place] [address] AST [Catalytic activity/Vol] 82 U/L High 10-42 [facility] Comment on above: Performed By: #### H S TROP, CMP, CBC, BNP, MG #### [facility] [address] [place] [address] Bilirubin [Mass/Vol] 1.1 mg/dL Normal 0.3-1.2 [facility] Comment on above: Performed By: #### H S TROP, CMP, CBC, BNP, MG #### [facility] [address] [place] [address] Calcium [Mass/Vol] 9.6 mg/dL Normal 8.2-10.2 [facility] Comment on above: Performed By: #### H S TROP, CMP, CBC, BNP, MG #### [address] Chloride [Moles/Vol] 103 mmol/L Normal 95-114 [facility] Comment on above: Performed By: #### H S TROP, CMP, CBC, BNP, MG #### [address] CO2 [Moles/Vol] 21.2 mmol/L Low 22.0-30.0 [facility] Comment on above: Performed By: #### H S TROP, CMP, CBC, BNP, MG #### [address] Creatinine [Mass/Vol] 1.16 mg/dL Normal 0.64-1.27 [facility] Comment on above: Performed By: #### H S TROP, CMP, CBC, BNP, MG #### [address] Creatinine Clr Calc Pharmacy 118.79 [facility] Comment on above: Performed By: #### H S TROP, CMP, CBC, BNP, MG #### [address] Estimated GFR ( Stacey > 60 [facility] Comment on above: Result Comment: GFR estimated reference range: According to KDOQI guidelines, <60 ml/min/1.73m2 is sufficient to diagnose a patient with chronic kidney disease. Performed By: #### H S TROP, CMP, CBC, BNP, MG #### [address] Estimated GFR (Non- Am > 60 [facility] Comment on above: Performed By: #### H S TROP, CMP, CBC, BNP, MG #### [address] Globulin (S) [Mass/Vol] 3.2 g/dL Normal [facility] Comment on above: Performed By: #### H S TROP, CMP, CBC, BNP, MG #### [address] Glucose [Mass/Vol] 144 mg/dL High 70-100 [facility] Comment on above: Result Comment: [facility] Glucose Reference Range is dependent on time and content of last meal. Glucose of more than 200 mg/dL in a nonstressed, ambulatory subject supports the diagnosis of Diabetes Mellitus. ADA recommended reference range Performed By: #### H S TROP, CMP, CBC, BNP, MG #### [address] Potassium [Moles/Vol] 4.0 mmol/L Normal 3.5-5.1 [facility] Comment on above: Performed By: #### H S TROP, CMP, CBC, BNP, MG #### [address] Protein [Mass/Vol] 7.4 g/dL Normal 6.1-7.9 [facility] Comment on above: Performed By: #### H S TROP, CMP, CBC, BNP, MG #### [address] Sodium [Moles/Vol] 135 mmol/L Low 136-146 [facility] Comment on above: Performed By: #### H S TROP, CMP, CBC, BNP, MG #### [address] Urea nitrogen [Mass/Vol] 20 mg/dL Normal 9-23 [facility] Comment on above: Performed By: #### H S TROP, CMP, CBC, BNP, MG #### [address] ECG 12 lead ECGon 04-24-2021 ECG 12 lead ECG [facility] [place] [address] [place] [address] Electrocardiograph Report Signed Patient: Jerry Wilson MR#: [id number] : 1970 Acct:[id number] Age/Sex: 50 / M ADM Date: 04/24/21 Loc: ER Room: Type: [facility] ER Attending Dr: Ordering Provider: Nitesh [...] sinus rhythm Confirmed by Nitesh SANCHES DO ([id number]) on 04/25/2021 12:42:23 AM Referred By: Electronically Signed By:Nitesh SANCHES DO Transcribed By: MUS Signed By Nitesh Sanches DO 1 06/26/20 0042 Normal [facility] Magnesiumon 04-24-2021 Magnesium [Mass/Vol] 1.9 mg/dL Normal 1.6-2.6 [facility] Comment on above: Result Comment: PERF ORMED BY: [place] [address] PATHOLOGIST WORKERS COMPENSATION CLAIMS ASSISTANT HARESH LUI M.D. Performed By: #### H S TROP, CMP, CBC, BNP, MG #### [facility] [address] [place] [address] Partial Thromboplastin Timeo n 04-24-2021 aPTT Coag (Bld) [Time] 29.3 s Normal 25.1-36.5 [facility] Comment on above: Result Comment: PERF ORMED BY: [place] [address] PATHOLOGIST WORKERS COMPENSATION CLAIMS ASSISTANT HARESH LUI M.D. Performed By: #### P TT, PT #### [facility] [address] [place], [place] [address] [place] Prothrombin Time INRon 04-24 INR Coag (PPP) [Relative time] 1.0 {INR} Normal [facility] Comment on above: Result Comment: INR Therapeutic [...] Performed By: #### P TT, PT #### [address] PT Coag (PPP) [Time] 11.5 s Normal 9.0-12.9 [facility] Comment on above: Performed By: #### P TT, PT #### [address] Adolfo Ag Positiveon 04-24-20 21 Adolfo Ag Positive Positive Critically abnormal Negative [facility] Comment on above: Result Comment: This is a duplicate Adolfo SARS Antigen (KOKO) result to be used for statistical tracking purpose only. PERFORMED BY: [place] [address] PATHOLOGIST WORKERS COMPENSATION CLAIMS ASSISTANT HARESH LUI M.D. Performed By: #### C OVID-19 ADOLFO, SOFIAPOS #### [address] Troponin I High Sensitivityo n 04-24-2021 Troponin I High Sensitivity 4 pg/mL Normal 0-20 [facility] Comment on above: Result Comment: PERF ORMED BY: [place] [address] PATHOLOGIST WORKERS COMPENSATION CLAIMS ASSISTANT HARESH LUI M.D. Performed By: #### H S TROP, CMP, CBC, BNP, MG #### [address] Follow Up (Pulmonary Medicin e)on 01-12-2021 Follow Up (Pulmonary Medicine) Diagnoses/Problems Dyspnea on exertion (786.09) (R06.00) Sarcoidosis (135) (D86.9) CLEM on CPAP (327.23,V46.8) (G47.33,Z99.89) Orders Cardiopulmonary Stress Test (Met Stress Test); Status:Hold For - Scheduling; Requested for:[id number]; Perform:[facility] ([facility]); Due:[id number];Ordered ; For:Dyspnea on exertion; Ordered By:Carter Kruse; [...] Dr. Camacho Other: Dr. Adan (pulmonary in [place]) HPI: 11/22/2020: At baseline, he had no [...] He was started on prednisone by his learning and development officer in July. He initially felt slightly improved but shortly started worsening again. 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 Has known exposure to asbestos, silica or beryllium CTD evaluation: No hx of joint pain/swelling, skin rashes, Raynaud's, sicca syndrome, eye redness, muscle pain and weakness, difficulty swallowing. Family History: No family history of lung diseases or cancer Imaging history: (I have personally reviewed the imaging below) 12/15/2020 HRC (more content not included)... Normal [employer] Tobacco Screening.on Fall risk assessment a) No falls within the last year [facility] [employer] [facility] Work Phone: Tobacco use status CPHS b) No [facility] [employer] [facility] Work Phone: CALCIUM,URINE 24HRon CALCIUM, URINE 27.5 mg/dL Normal Not Established [facility] Comment on above: Performed By: #### T SPOT #### [facility] [address] [place] [address] CALCIUM,URINE 24HR 690 mg/24h High 100 - 300 [facility] Comment on above: Performed By: #### T SPOT #### [facility] [address] [place] [address] CREATININE, 24HR 2.81 g/24h High 0.87 - 2.41 [facility] Comment on above: Performed By: #### T SPOT #### [facility] [address] [place] [address] CREATININE, URINE 111.9 mg/dL Normal 20.0 - 370.0 [facility] Comment on above: Performed By: #### T SPOT #### [facility] [address] [place] [address] COLLECTION PERIOD 24 hrs Normal [facility] Comment on above: Performed By: #### T SPOT #### [facility] [address] [place] [address] URINE VOLUME 2508 mL Normal [facility] Comment on above: Performed By: #### T SPOT #### [facility] [address] [place] [address] CT CHEST WO CONTRASTon 12-15 CT CHEST WO CONTRAST Patient Name: JERRY WILSON STUDY: CT CHEST WO CONTRAST; 12/15/2020 3:31 pm INDICATION: dyspnea on exertion. COMPARISON: 05/04/2020 CT chest without contrast ACCESSION NUMBER(S): [id number] ORDERING CLINICIAN: CARTER KRUSE TECHNIQUE: Helical data [...] as stated. This study was interpreted at [place], [place]. Electronically signed by: YAMILKA MICHELLE MD [facility] Echocardiogramon 12-15-2020 Echocardiography [facility], [address] [place] [address] and TRANSTHORACIC ECHOCARDIOGRAM REPORT Patient Name: JERRY WILSON Reading Physician: [id number] Russ Villarreal MD Study Date: 12/15/2020 Referring Physician: CARTER KRUSE MRN/PID: [id number] PCP: Accession/Order#: [id number] Department Location: [facility] Date of : 1970 Fellow: Gender: M Nurse: Admit Date: Director Of Elementary Education: Bradley Webb [facility] Admission Status: Outpatient Additional Staff: Height: 177.80 cm CC Report to: Weight: 166.01 kg Study Type: Echocardiogram BSA: 2.70 m2 Diagnosis/ICD: J84.9-Interstitial lung disease Indication: Ilerstitial lung disease, Dyspnea on exertion, Sarcoidosis Procedure/CPT: Echo Complete w Full Doppler-[id number] Patient History: Pertinent History: Sarcoidosis, Dyspnea on exertion, CELM, CPAP, obesity, HTN. Study Detail: The following [...] LA Area A2C: 27.8 cm2 LA [place] A4C: 6.7 cm LA [place] A2C: 6.9 cm LA Vol A4C: 68.9 [...] Jace: 1.19 PulmV Sys Jace: 72.08 cm/s [id number] Russ Villarreal MD Electronically signed on 12/17/2020 at 10:27:03 PM Final Normal [facility] No Panel Informationon 12-15 [email or web address] ByDateTime?PatientID= [id number]&Date=2020&Time=13%3a21%3a3 0%3a00&TestType=ECG&S ite=1&OutputType=PDF& Ext=PDF [facility] [facility] Work Phone: [phone] Normal sinus rhythm [facility] Work Phone: [phone] Normal [facility] Work Phone: [phone] [facility] Work Phone: [phone] [facility] Work Phone: [phone] 1 [facility] Work Phone: [phone] 1 [facility] Work Phone: [phone] 1 [facility] Work Phone: [phone] [facility] Work Phone: [phone] [facility] Work Phone: [phone] [facility] Work Phone: [phone] [facility] Work Phone: [phone] [facility] Work Phone: [phone] 1 [facility] Work Phone: [phone] 1 [facility] Work Phone: [phone] [facility] Work Phone: [phone] [facility] Work Phone: T-SPOT TBon 11-28-2020 NIL[NEG]CONTROL SPOT COUNT Passed Normal [facility] Comment on above: Performed By: #### T SPOT #### [facility] [address] [place] [address] PANEL A SPOT COUNT 0 Normal [facility] Comment on above: Performed By: #### T SPOT #### [facility] [address] [place] [address] PANEL B SPOT COUNT 0 Normal [facility] Comment on above: Performed By: #### T SPOT #### [facility] [address] [place] [address] POS CONTROL SPOT COUNT Passed Normal [facility] Comment on above: Performed By: #### T SPOT #### [facility] [address] [place] [address] T-SPOT.TB INTERP Negative Normal Normal Valu e: Negative [facility] Comment on above: Result Comment: A ne [...] test. Performed By: #### T SPOT #### [facility] [address] [place] [address] VITAMIN D 1,25-DIHYDROXYon 0 11-25-2020 VITAMIN D 1,25-DIHYDROXY 116.0 pg/mL High 19.9-79.3 [facility] Comment on above: Result Comment: INTE RPRETIVE INFORMATION: Vitamin D, 1,25-Dihydroxy This test is primarily indicated during patient evaluation for hypercalcemia and renal failure. A normal result does not rule out Vitamin D deficiency. The recommended test for diagnosing Vitamin D deficiency is Vitamin D 25-hydroxy. Performed By: [facility] [address] [place] [address] Lift Manager: Rebecca Johnson MD Performed By: #### T SPOT #### [facility] [address] [place] [address] MISCELLANEOUS TESTon 021 MISCELLANEOUS Canceled Normal [facility] Comment on above: Order Comment: TEST MISCELLANEOUS TEST WAS CANCELLED, 11/23/2020 08:22 QNS, PLEASE RESUBMIT.. Performed By: #### M ISC1 #### GENERAL SENDOUT NAME OF SEND OUT TEST Canceled Normal [facility] Comment on above: Order Comment: TEST MISCELLANEOUS TEST WAS CANCELLED, 11/23/2020 08:22 QNS, PLEASE RESUBMIT.. Performed By: #### M ISC1 #### GENERAL SENDOUT CBC AND DIFFERENTIALon 11-22 % AUTOMATED IMMATURE GRAN 0.8 % Normal 0.0 - 0.9 [facility] Comment on above: Result Comment: Ambika ture Granulocyte Count (IG) includes promyelocytes, myelocytes and metamyelocytes but does not include bands. Percent differential counts (%) should be interpreted in the context of the absolute cell counts (cells/L). Performed By: #### T SPOT #### [facility] [address] [place] [address] Basophils (Bld) [#/Vol] 0.01 10*3/uL Normal 0.00 - 0.10 [facility] Comment on above: Performed By: #### T SPOT #### [facility] [address] [place] [address] Basophils/100 WBC (Bld) 0.1 % Normal 0.0 - 2.0 [facility] Comment on above: Performed By: #### T SPOT #### [facility] [address] [place] [address] Eosinophils (Bld) [#/Vol] 0.02 10*3/uL Normal 0.00 - 0.70 [facility] Comment on above: Performed By: #### T SPOT #### [employer] [facility] [address] [place] [address] Eosinophils/100 WBC (Bld) 0.2 % Normal 0.0 - 6.0 [facility] Comment on above: Performed By: #### T SPOT #### [facility] [address] [place] [address] Erythrocyte distribution width (RBC) [Ratio] 13.7 % Normal 11.5 - 14.5 [facility] Comment on above: Performed By: #### T SPOT #### [facility] [address] [place] [address] Hematocrit (Bld) [Volume fraction] 47.0 % Normal 41.0 - 52.0 [facility] Comment on above: Performed By: #### T SPOT #### [facility] [address] [place] [address] Hemoglobin (Bld) [Mass/Vol] 15.7 g/dL Normal 13.5 - 17.5 [facility] Comment on above: Performed By: #### T SPOT #### [facility] [address] [place] [address] Lymphocytes (Bld) [#/Vol] 0.59 10*3/uL Low 1.20 - 4.80 [facility] Comment on above: Performed By: #### T SPOT #### [facility] [address] [place] [address] Lymphocytes/100 WBC (Bld) 7.0 % Normal 13.0 - 44.0 [facility] Comment on above: Performed By: #### T SPOT #### [facility] [address] [place] [address] MCHC (RBC) [Mass/Vol] 33.4 g/dL Normal 32.0 - 36.0 [facility] Comment on above: Performed By: #### T SPOT #### [facility] [address] [place] [address] MCV (RBC) [Entitic vol] 91 fL Normal 80 - 100 [facility] Comment on above: Performed By: #### T SPOT #### [facility] [address] [place] [address] Monocytes (Bld) [#/Vol] 0.19 10*3/uL Normal 0.10 - 1.00 [facility] Comment on above: Performed By: #### T SPOT #### [facility] [address] [place] [address] Monocytes/100 WBC (Bld) 2.3 % Normal 2.0 - 10.0 [facility] Comment on above: Performed By: #### T SPOT #### [facility] [address] [place] [address] Neutrophils (Bld) [#/Vol] 7.54 10*3/uL Normal 1.20 - 7.70 [facility] Comment on above: Performed By: #### T SPOT #### [facility] [address] [place] [address] Neutrophils/100 WBC (Bld) 89.6 % Normal 40.0 - 80.0 [facility] Comment on above: Performed By: #### T SPOT #### [facility] [address] [place] [address] NUCLEATED RBC 0.0 /100 WBC Normal 0.0-0.0 [facility] [place] Comment on above: Performed By: #### T SPOT #### [facility] [address] [place] , [place] [address] Platelets (Bld) [#/Vol] 222 10*3/uL Normal 150 - 450 [facility] Comment on above: Performed By: #### T SPOT #### [facility] [address] [place] [address] RBC 5.17 x10E12/L Normal 4.50 - 5.90 [facility] Comment on above: Performed By: #### T SPOT #### [facility] [address] [place] , [place] [address] WBC (Bld) [#/Vol] 8.4 10*3/uL Normal 4.4 - 11.3 [facility] Comment on above: Performed By: #### T SPOT #### [facility] [address] [place] [address] COMPREHENSIVE PANELon 2020 Albumin [Mass/Vol] 4.7 g/dL Normal 3.4 - 5.0 [facility] Comment on above: Performed By: #### T SPOT #### [facility] [address] [place] [address] ALP [Catalytic activity/Vol] 47 U/L Normal 33 - 120 [facility] Comment on above: Performed By: #### T SPOT #### [facility] [address] [place] [address] ALT [Catalytic activity/Vol] 59 U/L High 10 - 52 [facility] Comment on above: Result Comment: Latricia ents treated with Sulfasalazine may generate falsely decreased results for ALT. Performed By: #### T SPOT #### [facility] [address] [place] [address] Anion gap [Moles/Vol] 20 mmol/L Normal 10 - 20 [facility] Comment on above: Performed By: #### T SPOT #### [facility] [address] [place] [address] AST [Catalytic activity/Vol] 36 U/L Normal 9 - 39 [facility] Comment on above: Performed By: #### T SPOT #### [facility] [address] [place] [address] Bilirubin [Mass/Vol] 1.5 mg/dL High 0.0 - 1.2 [facility] Comment on above: Performed By: #### T SPOT #### [facility] [address] [place] [address] Calcium [Mass/Vol] 10.2 mg/dL Normal 8.6 - 10.6 [facility] Comment on above: Performed By: #### T SPOT #### [facility] [address] [place] [address] Chloride [Moles/Vol] 104 mmol/L Normal 98 - 107 [facility] Comment on above: Performed By: #### T SPOT #### [facility] [address] [place] [address] Creatinine [Mass/Vol] 1.17 mg/dL Normal 0.50 - 1.30 [facility] Comment on above: Performed By: #### T SPOT #### [facility] [address] [place] [address] GFR- AM. >60 Normal >60 [facility] [place] Comment on above: Result Comment: CALC ULATIONS OF ESTIMATED GFR ARE PERFORMED USING THE MDRD STUDY EQUATION FOR THE IDMS-TRACEABLE CREATININE METHODS. CLIN CHEM 2007;53:766-72 Performed By: #### T SPOT #### [facility] [address] [place] [address] GFR-NON AM. >60 Normal >60 [facility] Comment on above: Performed By: #### T SPOT #### [facility] [address] [place] [address] Glucose [Mass/Vol] 168 mg/dL High 74 - 99 [facility] Comment on above: Performed By: #### T SPOT #### [facility] [address] [place] [address] HCO3 (Bld) [Moles/Vol] 21 mmol/L Normal 21 - 32 [facility] Comment on above: Performed By: #### T SPOT #### [facility] [address] [place] [address] Potassium [Moles/Vol] 4.5 mmol/L Normal 3.5 - 5.3 [facility] Comment on above: Performed By: #### T SPOT #### [facility] [address] [place] [address] Protein [Mass/Vol] 7.5 g/dL Normal 6.4 - 8.2 [facility] Comment on above: Performed By: #### T SPOT #### [facility] [address] [place] [address] Sodium [Moles/Vol] 140 mmol/L Normal 136 - 145 [facility] Comment on above: Performed By: #### T SPOT #### [facility] [address] [place] [address] Urea nitrogen [Mass/Vol] 24 mg/dL High 6 - 23 [facility] Comment on above: Performed By: #### T SPOT #### [facility] [address] [place] [address] Follow Up (Pulmonary Medicin e)on 11-22-2020 Follow Up (Pulmonary Medicine) Diagnoses/Problems Daily caffeine consumption Sarcoidosis (135) (D86.9) Mediastinal lymphadenopathy (785.6) (R59.0) Dyspnea on exertion (786.09) (R06.00) CLEM on CPAP (327.23,V46.8) (G47.33,Z99.89) Orders 6 Minute Walk Test; Status:Hold For - Scheduling; Requested for:[id number]; Perform:[facility]; Due:20Feb2021;Ordered ; For:ILD (interstitial lung disease); Ordered By:Carter Kruse; Calcium, Urine 24 Hour; Status:Active; Requested for:22Nov2020; Perform:[facility] Services - Lab To Draw (Non-Blood Test); Due:20Feb2021;Ordered ; For:ILD (interstitial lung disease); Ordered By:Carter Kruse; Complete Blood Count + Differential; Status:In Progress - Specimen/Data Collected; Done: [id number] Perform:[facility] Services - Lab To Draw (Blood Test); Due:20Feb2021;Ordered ; For:ILD (interstitial lung disease); Ordered By:Carter Kruse; Complete PFT w/o ABG; Status:Hold For - Scheduling; Requested for:22Nov2020; Perform:[facility]; Due:20Feb2021;Ordered ; For:ILD (interstitial lung disease); Ordered By:Carter Kruse; Comprehensive Metabolic Panel; Status:In Progress - Specimen/Data Collected; Done: 22Nov2020 Perform:Lab Services - Lab To Draw (Blood Test); Due:20Feb2021;Ordered ; For:ILD (interstitial lung disease); Ordered By:Carter Kruse; CT Chest without Contrast; Status:Active; Requested for:[id number]; Perform:[facility] Imaging;Ordered; For:ILD (interstitial lung disease); Ordered By:Carter Kruse; Patient taking Metformin or Derivatives? : No Radiologist to Determine Optimal Study : Y What are the patient's signs and symptoms? : dyspnea on exertion Echocardiogram; Status:Hold For - Scheduling; Requested for:22Nov2020; Perform:[facility] ([place]); Due:20Feb2021;Ordered ; For:ILD (interstitial lung disease); Ordered By:Carter Kruse; Electrocardiogram EKG; Status:Hold For - Scheduling; Requested for:22Nov2020; Perform:[facility] [place] [address]; Due:20Feb2021;Ordered ; For:ILD (interstitial lung disease); Ordered By:Carter Kruse; HIV 1/2 ANTIGEN/ANTIBODY SCREEN WITH REFLEX TO CONFIRMATION; Status:In Progress - Specimen/Data Collected; Done: 22Nov2020 Perform:[facility] - Lab To Draw (Blood Test); Due:20Feb2021;Ordered ; For:ILD (interstitial lung disease); Ordered By:Carter Kruse; MISCELLANEOUS TEST; Status:In Progress - Specimen/Data Collected; Done: [id number] Perform:[facility] Services - Lab To Draw (Non-Blood Test); Order Comments:Beryllium lymphocyte proliferation test; Due:20Feb2021;Ordered ; For:ILD (interstitial lung disease); Ordered By:Carter Kruse; T-SPOT. TB; Status:In Progress - Specimen/Data Collected; Done: 90Okk4720 Perform:[facility] - Lab To Draw (Blood Test); Due:20Feb2021;Ordered ; For:ILD (interstitial lung disease); Ordered By:Carter Kruse; Urinalysis; Status:In Progress - Specimen/Data Collected; Done: 18Gyr1854 Perform:[facility] - Lab To Draw (Non-Blood Test); Due:20Feb2021;Ordered ; For:ILD (interstitial lung disease); Ordered By:Carter Kruse; Vitamin D 25-Hydroxy; Status:In Progress - Specimen/Data Collected; Done: 40Bue3215 Perform:[facility] - Lab To Draw (Blood Test); Due:20Feb2021;Ordered ; For:ILD (interstitial lung disease); Ordered By:Carter Kruse; Vitamin-D 1,25-Dihydroxy, Level; Status:In Progress - Specimen/Data Collected; Done: 79Cpt7385 Perform:Lab Services - Lab To Draw (Blood [...] Daily Vitals Vital Signs Recorded: 22Nov2020 01:10PM Gluuhqfofkb89.8 F Heart Rate96 Nbkydsij945 Dpebsytvw23 Bxuara986 lb 14.4 oz Tobacco Useb) No Fall Screeninga) No falls within the last year O2 Oygihytkxx21, RA Pain Scale0 Signatures Electronically signed by : Carter Kruse MD; Nov 22 2020 5:33PM EST (Author) Normal [facility] HIV 1/2 ANTIGEN/ANTIBODY SCR EEN WITH REFLEX TO CONFIRMATIONon 11-22-2020 HIV 1/2 AG/AB SCREEN Non-Reactive Normal NONREACTIVE [facility] Comment on above: Result Comment: HIV Ag/Ab screen is performed using the Siemens Myze HIV Ag/Ab Combo assay which detects the presence of HIV p24 antigen as well as antibodies to HIV-1 (Group M and O) and HIV-2. . No laboratory evidence of HIV infection. If acute HIV infection is suspected, consider testing for HIV RNA by PCR (viral load). Performed By: #### T SPOT #### [facility] [address] [place] [address] Lab Specimen Source Normal [facility] Comment on above: Performed By: #### T SPOT #### [facility] [address] [place] [address] Initial Visit (Pulmonary Med icine)on 11-22-2020 Initial Visit (Pulmonary Medicine) Diagnoses/Problems Daily caffeine consumption Sarcoidosis (135) (D86.9) Mediastinal lymphadenopathy (785.6) (R59.0) Dyspnea on exertion (786.09) (R06.00) CLEM on CPAP (327.23,V46.8) (G47.33,Z99.89) Orders 6 Minute Walk Test; Status:Hold For - Scheduling; Requested for:22Nov2020; Perform:[facility]; Due:20Feb2021;Ordered ; For:ILD (interstitial lung disease); Ordered By:Carter Kruse; Calcium, Urine 24 Hour; Status:Active; Requested for:22Nov2020; Perform:[facility] - Lab To Draw (Non-Blood Test); Due:20Feb2021;Ordered ; For:ILD (interstitial lung disease); Ordered By:Carter Kruse; Complete Blood Count + Differential; Status:In Progress - Specimen/Data Collected; Done: [id number] Perform:[facility] - Lab To Draw (Blood Test); Due:20Feb2021;Ordered ; For:ILD (interstitial lung disease); Ordered By:Carter Kruse; Complete PFT w/o ABG; Status:Hold For - Scheduling; Requested for:[id number]; Perform:[facility]; Due:20Feb2021;Ordered ; For:ILD (interstitial lung disease); Ordered By:Carter Kruse; Comprehensive Metabolic Panel; Status:In Progress - Specimen/Data Collected; Done: 23Qrw5551 Perform:[facility] Services - Lab To Draw (Blood Test); Due:20Feb2021;Ordered ; For:ILD (interstitial lung disease); Ordered By:Carter Kruse; CT Chest without Contrast; Status:Active; Requested for:98Mso2590; Perform:[facility] Services [facility];Ordered; For:ILD (interstitial lung disease); Ordered By:Carter Kruse; Patient taking Metformin or Derivatives? : No Radiologist to Determine Optimal Study : Y What are the patient's signs and symptoms? : dyspnea on exertion Echocardiogram; Status:Hold For - Scheduling; Requested for:22Nov2020; Perform:[facility] ([place]); Due:20Feb2021;Ordered ; For:ILD (interstitial lung disease); Ordered By:Carter Kruse; Electrocardiogram EKG; Status:Hold For - Scheduling; Requested for:22Nov2020; Perform:[facility] [place] [address]; Due:20Feb2021;Ordered ; For:ILD (interstitial lung disease); Ordered By:Carter Kruse; HIV 1/2 ANTIGEN/ANTIBODY SCREEN WITH REFLEX TO CONFIRMATION; Status:In Progress - Specimen/Data Collected; Done: 92Nui6568 Perform:[facility] - Lab To Draw (Blood Test); Due:20Feb2021;Ordered ; For:ILD (interstitial lung disease); Ordered By:Carter Kruse; MISCELLANEOUS TEST; Status:In Progress - Specimen/Data Collected; Done: 61Lcd3152 Perform:[facility] - Lab To Draw (Non-Blood Test); Order Comments:Beryllium lymphocyte proliferation test; Due:20Feb2021;Ordered ; For:ILD (interstitial lung disease); Ordered By:Carter Kruse; T-SPOT. TB; Status:In Progress - Specimen/Data Collected; Done: 94Krv0221 Perform:[facility] - Lab To Draw (Blood Test); Due:08Daj2457;Ordered ; For:ILD (interstitial lung disease); Ordered By:Carter Kruse; Urinalysis; Status:In Progress - Specimen/Data Collected; Done: 01Qwh1325 Perform:[facility] - Lab To Draw (Non-Blood Test); Due:46Wqo0791;Ordered ; For:ILD (interstitial lung disease); Ordered By:Carter Kruse; Vitamin D 25-Hydroxy; Status:In Progress - Specimen/Data Collected; Done: 84Get0879 Perform:[facility] - Lab To Draw (Blood Test); Due:20Feb2021;Ordered ; For:ILD (interstitial lung disease); Ordered By:Carter Kruse; Vitamin-D 1,25-Dihydroxy, Level; Status:In Progress - Specimen/Data Collected; Done: 50Cak6690 Perform:Lab Services - Lab To Draw (Blood [...] will sta (more content not included)... Normal [employer] Tobacco Screening.on 021 Fall risk assessment a) No falls within the last year [facility] Work Phone: Tobacco use status CPHS b) No [facility] [employer] [facility] Work Phone: URINALYSISon 11-22-2020 Appearance (U) CLEAR Normal CLEAR [facility] Comment on above: Performed By: #### U A #### [facility] [address] [place] [address] Bilirubin Ql (U) Negative Normal NEGATIVE [facility] Comment on above: Performed By: #### U A #### [facility] [address] [place] [address] Color (U) YELLOW Normal STRAW,YELLOW [facility] Comment on above: Performed By: #### U A #### [facility] [address] [place] [address] Glucose Ql (U) 150 (1+) Abnormal NEGATIVE [facility] Comment on above: Performed By: #### U A #### [facility] [address] [place] [address] Hemoglobin Ql (U) Negative Normal NEGATIVE [facility] Comment on above: Performed By: #### U A #### [facility] [address] [place] [address] Ketones Ql (U) Negative Normal NEGATIVE [facility] Comment on above: Performed By: #### U A #### [facility] [address] [place] [address] Leukocyte esterase Test strip Ql (U) Negative Normal NEGATIVE [facility] Comment on above: Performed By: #### U A #### [facility] [address] [place] [address] Nitrite Ql (U) Negative Normal NEGATIVE [facility] Comment on above: Performed By: #### U A #### [facility] [address] [place] [address] pH (U) 5.0 [pH] Normal 5.0 - 8.0 [facility] Comment on above: Performed By: #### U A #### [facility] [address] [place] [address] Protein Ql (U) Negative Normal NEGATIVE [facility] Comment on above: Performed By: #### U A #### [facility] [address] [place] [address] Specific gravity (U) [Rel density] 1.021 Normal 1.005 - 1.035 [facility] Comment on above: Performed By: #### U A #### [facility] [address] [place] [address] Urobilinogen (U) [Mass/Vol] mg/dL Normal 0.0 - 1.9 [facility] Comment on above: Performed By: #### U A #### [facility] [address] [place] [address] VITAMIN D, 25-HYDROXYon 11-09 VITAMIN D, 25-HYDROXY 23 ng/mL Abnormal [facility] Comment on above: Result Comment: . DEFICIENCY: < 20 NG/ML INSUFFICIENCY: 20-29 NG/ML SUFFICIENCY: 30-100 NG/ML THIS ASSAY ACCURATELY QUANTIFIES THE SUM OF VITAMIN D3, 25-HYDROXY AND VIT D2,25-HYDROXY. Performed By: #### T SPOT #### [facility] [address] [place] [address] MISCELLANEOUS TEST-SOARIANon 07-31-2020 MISCELLANEOUS SEE BELOW Normal [facility] Comment on above: Result Comment: TEST RESULT [...] developed and its performance characteristics determined by [employer]. It has not been cleared or approved by the [place] Food and Drug Administration. This test was performed in a CLIA certified laboratory and is intended for clinical purposes. Test results should be interpreted with caution. Assay was performed at client's request on a sub-optimal specimen. REFERRED TO [facility] [address] [place] [id number] Performed By: #### M ISCS #### GENERAL SENDOUT CD4 AND CD8 (T4T8 SCREEN)on 07-25-2020 CD4/CD8 RATIO Canceled Normal [facility] Comment on above: Order Comment: TEST CD4 AND CD8 (T4T8 SCREEN) WAS CANCELLED, 07/25/2020 07:57 BAL specimensto be sent to [facility] for testing per Dr. Stevenson.. Performed By: #### T SPOT #### [facility] [address] [place] [address] CD45 % Canceled Normal [facility] Comment on above: Order Comment: TEST CD4 AND CD8 (T4T8 SCREEN) WAS CANCELLED, 07/25/2020 07:57 BAL specimensto be sent to [facility] for testing per Dr. Stevenson.. Performed By: #### T SPOT #### [facility] [address] [place] [address] MARKER INTERPRETATION Canceled Normal [facility] Comment on above: Order Comment: TEST CD4 AND CD8 (T4T8 SCREEN) WAS CANCELLED, 07/25/2020 07:57 BAL specimensto be sent to [facility] for testing per Dr. Stevenson.. Performed By: #### T SPOT #### [facility] [address] [place] [address] METHOD Canceled Normal [facility] Comment on above: Order Comment: TEST CD4 AND CD8 (T4T8 SCREEN) WAS CANCELLED, 07/25/2020 07:57 BAL specimensto be sent to [facility] for testing per Dr. Stevenson.. Result Comment: This test is a multicolor, whole blood lysis assay. It was developed and its performance characteristics determined by the Department of Pathology, [facility], and has not been cleared or approved by the U.S. Food and Drug Administration. The laboratory is regulated under CLIA as qualified to perform high complexity testing. This test is used for clinical purposes. It should not be regarded as investigational or for research. Performed By: #### T SPOT #### [facility] [address] [place] [address] SITE Canceled Normal [facility] Comment on above: Order Comment: TEST CD4 AND CD8 (T4T8 SCREEN) WAS CANCELLED, 07/25/2020 07:57 BAL specimensto be sent to [facility] for testing per Dr. Stevenson.. Performed By: #### T SPOT #### [facility] [address] [place] [address] MISCELLANEOUS TEST-SOARIANon 07-25-2020 NAME OF SEND OUT TEST Lymphocyte Subset Panel Normal [facility] Comment on above: Result Comment: BAL Specimen Performed By: #### M ISCS #### GENERAL SENDOUT AFB CULTURE/SM, MISCon 07-24 AFB CULTURE/SM, MISC PATIENT: SAHIL WILSON [facility] [id number] : 74 AGE: SEX: M ORDERED BY: STUART MIGUEL SOURCE: BRONCHIAL COLLECTED: 07/24/20 11:00 ANTIBIOTICS AT [facility].: RECEIVED : 07/24/20 14:23 SITE: BAL RML R E S U L T S AFB SMEAR FINAL 07/25/20 13:44 ACID FAST SMEAR - NEGATIVE. [place] CULT[place]SM, [facility] 09/13/20 14:08 NO MYCOBACTERIA ISOLATED. Normal [facility] Comment on above: Performed By: #### T SPOT #### [facility] [address] [place] [address] CBC AND DIFFERENTIALon 07-24 % AUTOMATED IMMATURE GRAN Canceled Normal [facility] Comment on above: Order Comment: TEST CBC AND DIFFERENTIAL WAS CANCELLED, 07/24/2020 13:45 SAMPLE UNSUITABLE FOR TESTING.. Result Comment: Ambika ture Granulocyte Count (IG) includes promyelocytes, myelocytes and metamyelocytes but does not include bands. Percent differential counts (%) should be interpreted in the context of the absolute cell counts (cells/L). Performed By: #### C BCDF #### [facility] [address] [place] [address] % BASOPHIL Canceled Normal [facility] Comment on above: Order Comment: TEST CBC AND DIFFERENTIAL WAS CANCELLED, 07/24/2020 13:45 SAMPLE UNSUITABLE FOR TESTING.. Performed By: #### C BCDF #### [facility] [address] [place] [address] % EOSINOPHIL Canceled Normal [facility] Comment on above: Order Comment: TEST CBC AND DIFFERENTIAL WAS CANCELLED, 07/24/2020 13:45 SAMPLE UNSUITABLE FOR TESTING.. Performed By: #### C BCDF #### [facility] [address] [place] [address] % LYMPHOCYTE Canceled Normal [facility] Comment on above: Order Comment: TEST CBC AND DIFFERENTIAL WAS CANCELLED, 07/24/2020 13:45 SAMPLE UNSUITABLE FOR TESTING.. Performed By: #### C BCDF #### [facility] [address] [place] [address] % MONOCYTE Canceled Normal [facility] Comment on above: Order Comment: TEST CBC AND DIFFERENTIAL WAS CANCELLED, 07/24/2020 13:45 SAMPLE UNSUITABLE FOR TESTING.. Performed By: #### C BCDF #### [facility] [address] [place] [address] % NEUTROPHIL Canceled Normal [facility] Comment on above: Order Comment: TEST CBC AND DIFFERENTIAL WAS CANCELLED, 07/24/2020 13:45 SAMPLE UNSUITABLE FOR TESTING.. Performed By: #### C BCDF #### [facility] [address] [place] [address] BASOPHIL Canceled Normal [facility] Comment on above: Order Comment: TEST CBC AND DIFFERENTIAL WAS CANCELLED, 07/24/2020 13:45 SAMPLE UNSUITABLE FOR TESTING.. Performed By: #### C BCDF #### [facility] [address] [place] [address] DIFFERENTIAL Canceled Normal [facility] Comment on above: Order Comment: TEST CBC AND DIFFERENTIAL WAS CANCELLED, 07/24/2020 13:45 SAMPLE UNSUITABLE FOR TESTING.. Performed By: #### C BCDF #### [facility] [address] [place] [address] EOSINOPHIL Canceled Normal [facility] Comment on above: Order Comment: TEST CBC AND DIFFERENTIAL WAS CANCELLED, 07/24/2020 13:45 SAMPLE UNSUITABLE FOR TESTING.. Performed By: #### C BCDF #### [facility] [address] [place] [address] HCT Canceled Normal [facility] Comment on above: Order Comment: TEST CBC AND DIFFERENTIAL WAS CANCELLED, 07/24/2020 13:45 SAMPLE UNSUITABLE FOR TESTING.. Performed By: #### C BCDF #### [facility] [address] [place] [address] HGB Canceled Normal [facility] Comment on above: Order Comment: TEST CBC AND DIFFERENTIAL WAS CANCELLED, 07/24/2020 13:45 SAMPLE UNSUITABLE FOR TESTING.. Performed By: #### C BCDF #### [facility] [address] [place] [address] LYMPHOCYTE Canceled Normal [facility] Comment on above: Order Comment: TEST CBC AND DIFFERENTIAL WAS CANCELLED, 07/24/2020 13:45 SAMPLE UNSUITABLE FOR TESTING.. Performed By: #### C BCDF #### [facility] [address] [place] [address] MCHC Canceled Normal [facility] Comment on above: Order Comment: TEST CBC AND DIFFERENTIAL WAS CANCELLED, 07/24/2020 13:45 SAMPLE UNSUITABLE FOR TESTING.. Performed By: #### C BCDF #### [facility] [address] [place] [address] MCV Canceled Normal [facility] Comment on above: Order Comment: TEST CBC AND DIFFERENTIAL WAS CANCELLED, 07/24/2020 13:45 SAMPLE UNSUITABLE FOR TESTING.. Performed By: #### C BCDF #### [facility] [address] [place] [address] MONOCYTE Canceled Normal [facility] Comment on above: Order Comment: TEST CBC AND DIFFERENTIAL WAS CANCELLED, 07/24/2020 13:45 SAMPLE UNSUITABLE FOR TESTING.. Performed By: #### C BCDF #### [facility] [address] [place] [address] NEUTROPHIL Canceled Normal [facility] Comment on above: Order Comment: TEST CBC AND DIFFERENTIAL WAS CANCELLED, 07/24/2020 13:45 SAMPLE UNSUITABLE FOR TESTING.. Performed By: #### C BCDF #### [facility] [address] [place] [address] NUCLEATED RBC Canceled Normal [facility] Comment on above: Order Comment: TEST CBC AND DIFFERENTIAL WAS CANCELLED, 07/24/2020 13:45 SAMPLE UNSUITABLE FOR TESTING.. Performed By: #### C BCDF #### [facility] [address] [place] [address] PLT Canceled Normal [facility] Comment on above: Order Comment: TEST CBC AND DIFFERENTIAL WAS CANCELLED, 07/24/2020 13:45 SAMPLE UNSUITABLE FOR TESTING.. Performed By: #### C BCDF #### [facility] [address] [place] [address] RBC Canceled Normal [facility] Comment on above: Order Comment: TEST CBC AND DIFFERENTIAL WAS CANCELLED, 07/24/2020 13:45 SAMPLE UNSUITABLE FOR TESTING.. Performed By: #### C BCDF #### [facility] [address] [place] [address] RDW-CV Canceled Normal [facility] Comment on above: Order Comment: TEST CBC AND DIFFERENTIAL WAS CANCELLED, 07/24/2020 13:45 SAMPLE UNSUITABLE FOR TESTING.. Performed By: #### C BCDF #### [facility] [address] [place] [address] WBC Canceled Normal [facility] Comment on above: Order Comment: TEST CBC AND DIFFERENTIAL WAS CANCELLED, 07/24/2020 13:45 SAMPLE UNSUITABLE FOR TESTING.. Performed By: #### C BCDF #### [facility] [address] [place] [address] CD4 AND CD8 (T4T8 SCREEN)on 07-24-2020 Lab Specimen Source Normal [facility] Comment on above: Order Comment: TEST CD4 AND CD8 (T4T8 SCREEN) WAS CANCELLED, 07/25/2020 07:57 BAL specimensto be sent to [facility] for testing per Dr. Stevenson.. Performed By: #### T SPOT #### [facility] [address] [place] [address] CELL COUNT AND DIFF, FLUIDon 07-24-2020 CELLS COUNTED 100 Normal [facility] Comment on above: Performed By: #### T SPOT #### [facility] [address] [place] [address] Clarity (U) Hazy Normal CLEAR [facility] Comment on above: Performed By: #### T SPOT #### [facility] [address] [place] [address] Color (U) Colorless Normal YELLOW [facility] Comment on above: Performed By: #### T SPOT #### [facility] [address] [place] [address] Lymphocytes/100 WBC (Bld) 32 % Normal [facility] Comment on above: Performed By: #### T SPOT #### [facility] [address] [place] [address] MONONUCLEAR CELLS 53 % Normal [facility] Comment on above: Performed By: #### T SPOT #### [facility] [address] [place] [address] Neutrophils/100 WBC (Bld) 15 % Normal [facility] Comment on above: Performed By: #### T SPOT #### [facility] [address] [place] [address] RBC (Bld) [#/Vol] 0.001 10*6/uL Normal [facility] Comment on above: Performed By: #### T SPOT #### [facility] [address] [place] [address] WBC (Bld) [#/Vol] 0.221 10*3/uL Normal [facility] Comment on above: Performed By: #### T SPOT #### [facility] [address] [place] [address] Lab Specimen Source Peritoneal fluid /ascites [facility] Comment on above: Performed By: #### T SPOT #### [facility] [address] [place] [address] FUNGAL CULTURE/SM, [facility] FUNGAL CULTURE[place]SM, [facility] [place]: JERRY WILSON LOCATION: ISIAH PATEL#: [id number] : 74 AGE: SEX: M ORDERED BY: STUART MIGUEL SOURCE: BRONCHIAL COLLECTED: 07/24/20 11:00 ANTIBIOTICS AT [place].: RECEIVED : 07/24/20 14:22 SITE: BAL RML R E S U L T S FUNGAL SMEAR FINAL 07/25/20 13:58 FLUORESCENT FUNGAL STAIN: NEGATIVE FUNGAL CULTURE/, MISC FINAL 08/14/20 11:30 NO FUNGI ISOLATED. [facility] Comment on above: Performed By: #### F [facility] #### [facility] [address] [place] [address] RESPIRATORY CULT./SM,LOWER 07-24-2020 RESPIRATORY CULT./SM,LOWER PATIENT: JERRY WILSON LOCATION: [facility]H PATEL#: [id number] : 74 AGE: SEX: M ORDERED BY: STUART MIGUEL SOURCE: BRONCHIAL COLLECTED: 07/24/20 11:00 ANTIBIOTICS AT [place].: RECEIVED : 07/24/20 14:18 SITE: BAL RML R E S U L T S GRAM STAIN FINAL 07/24/20 15:47 1+ GRANULOCYTES. NO ORGANISMS SEEN. RESPIRATORY CULT./SM,LOWER FINAL 07/28/20 12:21 NO GROWTH [facility] Comment on above: Performed By: #### T SPOT #### [facility] [address] [place] [id number] [facility] Cytologyon 07-24-2020 [facility] Cytology ADDENDUM Patient Name JERRY [...] CELLS IDENTIFIED. Slide(s) initially screened by a Manager Customs at [place] [address] Electronically Signed Out By Alex Bloom MD By the signature on this report, the individual or group listed as making the Final Interpretation/Diagno sis certifies that they have reviewed this case. Slide(s) initially screened by a Manager Customs at [facility] Rapid Evaluation Fine Needle Aspiration Immediate [...] FINE NEEDLE ASPIRATION LYMPH NODE-11RI Diff-Quik stain Non-Conventions Reservationist, Diff-Quik stain Non-Conventions Reservationist, Pap stain Non-Conventions Reservationist, Pap stain Non-Conventions Reservationist, CELL BLOCK, H AND E, Initial B: FINE NEEDLE ASPIRATION LYMPH NODE-7 Diff-Quik stain Non-Conventions Reservationist, Diff-Quik stain Non-Conventions Reservationist, Pap stain Non-Conventions Reservationist, Pap stain Non-Conventions Reservationist, CELL BLOCK, H AND E, Initial, H GOMORI'S METHENAMINE SILVER, H ACID FAST BACILLI, ZIEHL-NEELSON C: FINE NEEDLE ASPIRATION LYMPH NODE-4R Diff-Quik stain Non-Conventions Reservationist, Pap stain Non-Conventions Reservationist, CELL BLOCK, H AND E, Initial, H GOMORI'S METHENAMINE SILVER, H ACID FAST BACILLI, ZIEHL-NEELSON D: BRONCHO-ALVEOLAR LAVAGE OF RIGHT MIDDLE LOBE Pap non-ferris wheel attendant ThinPrep slide Gross Description A. FINE NEEDLE [...] positive and negative controls which stained appropriately. [facility] Department of Pathology [address] [place] [address] [facility] Comment on above: Performed By: #### C #### [facility] Cytology [address] [facility] [address] [facility] Surgical Pathology Depar tmenton 07-24-2020 [facility] Surgical Pathology Department Name JERRY [...] correlation and correlation with microbiologic studies suggested. WATER SOFTENER SERVICER: Dr. Elza Vazquez, thoracic pathologist, [facility] IMMUNOHISTOCHEMISTRY AND IN SITU HYBRIDIZATION: CD3 and CD20 highlight T and B cells respectively, T cells more abundant than B cells. Fraser and Lambda in situ hybridization highlight few [...] the Department of Pathology Immunohistochemistry Labs at [facility]. The FDA does not require this test to go through premarket FDA review. This test is used for clinical purposes. It should not be regarded as investigational or for research. This laboratory is certified under the Clinical Laboratory Improvement Amendments (CLIA) as qualified to perform high complexity clinical laboratory testing. The assays/tests were performed with appropriate positive and negative controls which stained appropriately. [facility] Department of Pathology [address] [place] [address] [facility] Comment on above: Performed By: #### U [facility] #### [facility] Surgical Pathology Department [address] [place] [address] Consult (Pulmonary Medicine) on 07-19-2020 Consult (Pulmonary [...] HFA Social History: Tobacco: Never smoker Occupation: [employer], dust exposure Imaging history: (I have personally [...] Auto #/vol (Bld) 0.0 10*3/uL Normal 0.0-0.2 [facility] Basophils/100 WBC Auto (Bld) 0.5 % Normal [facility] Eosinophils Auto #/vol (Bld) 0.1 10*3/uL Normal 0.0-0.7 [facility] Eosinophils/100 WBC Auto (Bld) 2.6 % Normal [facility] Erythrocyte distribution width Auto Ratio (RBC) 12.6 % Normal 11.5-14.5 [facility] Hematocrit Auto Volume Fraction (Bld) 38.2 % Low 42.0-52.0 [facility] Hemoglobin mass conc (Bld) 13.1 g/dL Low 14.0-18.0 [facility] Lymphocytes Auto #/vol (Bld) 0.8 10*3/uL Low 1.0-4.8 [facility] Lymphocytes/100 WBC Auto (Bld) 18.0 % Normal [facility] MCH Auto Entitic mass (RBC) 30.7 pg Normal 27.0-31.3 [facility] MCHC Auto mass conc (RBC) 34.4 % Normal 33.0-37.0 [facility] MCV Auto Entitic volume (RBC) 89.3 fL Normal 80.0-100.0 [facility] Monocytes Auto #/vol (Bld) 0.7 10*3/uL Normal 0.2-0.8 [facility] Monocytes/100 WBC Auto (Bld) 14.3 % Normal [facility] Neutrophils Auto #/vol (Bld) 3.0 10*3/uL Normal 1.4-6.5 [facility] Neutrophils/100 WBC Auto (Bld) 64.6 % Normal [facility] Platelets Auto #/vol (Bld) 233 10*3/uL Normal 130-400 [facility] RBC Auto #/vol (Bld) 4.28 10*6/uL Low 4.70-6.10 [facility] WBC Auto #/vol (Bld) 4.6 10*3/uL Low 4.8-10.8 [facility] Sedimentation Rateon 018 Sedimentation Rate 48 mm Critically high 0-10 M [facility] Basic Metabolic Panel Reflex Mgon 05-01-2018 Anion gap 3 molar conc 15 mmol/L Critically high 7-13 [facility] Calcium mass conc 8.9 mg/dL Normal 8.6-10.2 [facility] Chloride molar conc 102 mmol/L Normal 98-107 [facility] CO2 molar conc 22 mmol/L Normal 22-29 [facility] Creatinine mass conc 0.85 mg/dL Normal 0.70-1.20 [facility] GFR/1.73 sq M predicted among blacks MDRD vol rate/area (S/P/Bld) mL/min/{1.73_m2} Normal >60 [facility] Comment on above: Result Comment: >60 mL/min/1.73m2 EGFR, calc. for ages 18 and older using theMDRD formula (not corrected for weight), is valid for stablerenal function. GFR/1.73 sq M.predicted MDRD vol rate/area mL/min/{1.73_m2} Normal >60 [facility] Comment on above: Result Comment: >60 mL/min/1.73m2 EGFR, calc. for ages 18 and older using theMDRD formula (not corrected for weight), is valid for stablerenal function. Glucose mass conc 189 mg/dL Critically high 74-109 Me [facility] Potassium reflex Mg 4.7 mEq/L Normal 3.5-5.1 [facility] Sodium molar conc 139 mmol/L Normal 132-144 [facility] Urea nitrogen mass conc 19 mg/dL Normal 6-20 [facility] CBC With Platelet and Differ entialon 05-01-2018 Basophils Auto #/vol (Bld) 0.0 10*3/uL Normal 0.0-0.2 [facility] Basophils/100 WBC Auto (Bld) 0.2 % Normal [facility] Eosinophils Auto #/vol (Bld) 0.0 10*3/uL Normal 0.0-0.7 [facility] Eosinophils/100 WBC Auto (Bld) 0.0 % Normal [facility] Erythrocyte distribution width Auto Ratio (RBC) 12.8 % Normal 11.5-14.5 [facility] Hematocrit Auto Volume Fraction (Bld) 40.5 % Low 42.0-52.0 [facility] Hemoglobin mass conc (Bld) 14.3 g/dL Normal 14.0-18.0 [facility] Lymphocytes Auto #/vol (Bld) 0.6 10*3/uL Low 1.0-4.8 [facility] Lymphocytes/100 WBC Auto (Bld) 6.1 % Normal [facility] MCH Auto Entitic mass (RBC) 31.1 pg Normal 27.0-31.3 [facility] MCHC Auto mass conc (RBC) 35.3 % Normal 33.0-37.0 [facility] MCV Auto Entitic volume (RBC) 88.2 fL Normal 80.0-100.0 [facility] Monocytes Auto #/vol (Bld) 0.3 10*3/uL Normal 0.2-0.8 [facility] Monocytes/100 WBC Auto (Bld) 2.6 % Normal [facility] Neutrophils Auto #/vol (Bld) 9.1 10*3/uL Critically high 1.4-6.5 [facility] Neutrophils/100 WBC Auto (Bld) 91.1 % Normal [facility] Platelets Auto #/vol (Bld) 209 10*3/uL Normal 130-400 [facility] RBC Auto #/vol (Bld) 4.60 10*6/uL Low 4.70-6.10 [facility] WBC Auto #/vol (Bld) 9.9 10*3/uL Normal 4.8-10.8 [facility] XR LUMBAR SPINE (2-3 VIEWS)o n 05-01-2018 [...] as above.Interpreted by:Matteo Rodríguez, DOSigned by:Matteo Rodríguez, DO05/01/inal result Normal [facility] Antibody IDon 04-30-2018 Antibody ID PATIENT: LAURO Chan LOC: LCOPS,ORPOOL,NONBILL# : [id number] : 1970 SEX: MORDERED BY: SAVANAH BILLS ORDERED : 04/30/2018 11:55 COLLECTED: 04/30/2018 10:45ORDER : [id number] RECEIVED : 04/30/2018 10:45 Notified Cardoza Surg of positive ab screen and delay of compatible blood 04/30/18 11:40 Erika Rodgers TEST NAME RESULT UNITS RANGES ABN FL STAntibody ID POS, Cold Auto Aggluti F Normal [facility] Basic Metabolic Panel Reflex Mgon 04-30-2018 Anion gap 3 molar conc 17 mmol/L Critically high 7-13 [facility] Calcium mass conc 9.1 mg/dL Normal 8.6-10.2 [facility] Chloride molar conc 102 mmol/L Normal 98-107 [facility] CO2 molar conc 20 mmol/L Low 22-29 [facility] Creatinine mass conc 1.07 mg/dL Normal 0.70-1.20 [facility] GFR/1.73 sq M predicted among blacks MDRD vol rate/area (S/P/Bld) mL/min/{1.73_m2} Normal >60 [facility] Comment on above: Result Comment: >60 mL/min/1.73m2 EGFR, calc. for ages 18 and older using theMDRD formula (not corrected for weight), is valid for stablerenal function. GFR/1.73 sq M.predicted MDRD vol rate/area mL/min/{1.73_m2} Normal >60 [facility] Comment on above: Result Comment: >60 mL/min/1.73m2 EGFR, calc. for ages 18 and older using theMDRD formula (not corrected for weight), is valid for stablerenal function. Glucose mass conc 132 mg/dL Critically high 74-109 [facility] Potassium reflex Mg 4.1 mEq/L Normal 3.5-5.1 [facility] Sodium molar conc 139 mmol/L Normal 132-144 [facility] Urea nitrogen mass conc 21 mg/dL Critically high 6-20 [facility] CBC With Platelet No Differe ntialon 04-30-2018 Erythrocyte distribution width Auto Ratio (RBC) 12.9 % Normal 11.5-14.5 [facility] Hematocrit Auto Volume Fraction (Bld) 43.8 % Normal 42.0-52.0 [facility] Hemoglobin mass conc (Bld) 15.0 g/dL Normal 14.0-18.0 [facility] MCH Auto Entitic mass (RBC) 30.7 pg Normal 27.0-31.3 [facility] MCHC Auto mass conc (RBC) 34.3 % Normal 33.0-37.0 [facility] MCV Auto Entitic volume (RBC) 89.5 fL Normal 80.0-100.0 [facility] Platelets Auto #/vol (Bld) 208 10*3/uL Normal 130-400 [facility] RBC Auto #/vol (Bld) 4.89 10*6/uL Normal 4.70-6.10 [facility] WBC Auto #/vol (Bld) 10.4 10*3/uL Normal 4.8-10.8 [facility] BRIAN Poly Tubeon 04-30-2018 BRIAN Poly Tube PATIENT: LAURO Chan LOC: LCOPS,ORPOOL,NONBILL# : [id number] : 1970 SEX: MORDERED BY: SAVANAH BILLS ORDERED : 04/30/2018 12:48 COLLECTED: 04/30/2018 10:45ORDER : [id number] RECEIVED : 04/30/2018 10:45 Notified Cardoza Surg of positive ab screen and delay of compatible blood 04/30/18 11:40 Erika Rodgers TEST NAME RESULT UNITS RANGES ABN FL STDAT Poly Tube NEG F Normal [facility] FLUORO FOR SURGICAL PROCEDUR ESon 04-30-2018 FLUORO [...] by:MARY ANN Lucianoigned by:Cruz Ledesma MD05/01/18inal result [facility] RBC LRon 04-30-2018 RBC Auto #/vol (Bld) PATIENT: LAURO Chan LOC: LC2N,N226,01BILL# : [id number] : 1970 SEX: MORDERED BY: SAVANAH BILLS ORDERED : 04/30/2018 11:55 COLLECTED: 04/30/2018 18:46ORDER : [id number] RECEIVED : 04/30/2018 19:12 Notified Cardoza Surg of positive ab screen and delay of compatible blood 04/30/18 11:40 Erika Rodgers TEST NAME RESULT UNITS RANGES ABN FL STRBC LR [id number] RBC LR W0 F = Normal [facility] Rejection Notificationon Rejected Test tyrcc Normal [facility] Type and Screen Capture 3 sc rn cellon 04-30-2018 Type and Screen Capture 3 scrn cell PATIENT: LAURO Chan LOC: [facility] NONBILL# : [id number] : 1970 SEX: MORDERED BY: SAVANAH BILLS ORDERED : 04/30/2018 10:06 COLLECTED: 04/30/2018 10:45ORDER : [id number] RECEIVED : 04/30/2018 10:45 Notified Cardo[facility] Surg of positive ab screen and delay of compatible blood 04/30/18 11:40 Erika Rodgers TEST NAME RESULT UNITS RANGES ABN [facility] Capture B POS FAntibody 3 Cell Scrn Captu POS F Normal [facility] Vital Signs Date Time Vital Sign Value Performing Clinician Facility 05-24-2024 09:54-0500 Diastolic blood pressure 88 mm[Hg] [facility] 05-24-2024 09:54-0500 Heart rate 80 /min [facility] 05-24-2024 09:54-0500 Respiratory rate 16 /min [facility] 05-24-2024 09:54-0500 Systolic blood pressure 152 mm[Hg] [facility] Renetta 02-11-2023 14:18-0400 Blood Pressure Location Bill MONAE [facility] [place] 02-11-2023 14:18-0400 Diastolic blood pressure 104 mm[Hg] Bill MONAE [facility] [place] 02-11-2023 14:18-0400 Heart rate 80 /min Bill MONAE [facility] [place] 02-11-2023 14:18-0400 Respiratory rate 16 /min Bill MONAE [facility] [place] 02-11-2023 14:18-0400 Systolic blood pressure 140 mm[Hg] Bill MONAE [facility] [place] 01-12-2021 13:17-0400 Body temperature 96.1 [degF] Referring [...] Start: 05-24-2024 ambulatory Alex PANG Facility : [place] Start: 05-24-2024 End: 05-24-2024 Patient encounter procedure Alex PANG [facility] [place] Start: 03-30-2024 End: 03-30-2024 ambulatory PA-C JAIME KAPLAN Facility:[facility] Start: 03-30-2024 End: 03-30-2024 Lab Drop off JAIME KAPLAN [facility] Start: 03-30-2024 End: 03-30-2024 ambulatory TIM KAPLAN Facility:[facility] [place] Start: 03-30-2024 End: 03-30-2024 Patient encounter procedure JAIME KAPLAN [facility] Start: 03-05-2024 ambulatory Bill NILL Facility:[facility] Start: 04-22-2023 End: 04-22-2023 ambulatory Bill R NILL Facility:[facility] Start: 04-22-2023 End: 04-22-2023 Patient encounter procedure Bill R NILL [facility] Start: 04-09-2023 End: 04-09-2023 ambulatory Bill R NILL Facility:[id number] Start: 02-11-2023 End: 02-11-2023 Patient encounter procedure Bill R NILL [facility] Start: 09-13-2022 End: 09-13-[address] DORON CAMACHO . [facility] Other Start: 09-13-2022 Patient encounter procedure Halie [facility] Start: 08-16-2022 Encounter for genera l adult medical examination without abnormal findings DR DORON CAMACHO . [facility] Start: 08-10-2022 End: 08-11-[address] [...] 05-07-2018 End: 05-07-2018 Emergency department patient visit [facility] Start: 05-07-2018 Encounter for genera l adult medical examination without abnormal findings [facility] Start: 04-30-2018 End: 05-03-2018 Patient encounter procedure [facility] Start: 04-30-2018 End: 05-02-2018 Evaluation and management of inpatient [facility] Patient encounter status Referri ng Provider Unknown [facility] Work Phone: Procedures Date Procedure Procedure Detail Performing Clinician Start: 04-09-2023 Colonoscopy Bill ARTEAGA LL Start: 08-10-[address] VANE CAMACHO . Comment on above: Performed By: #### P SAS, VITAD #### [facility] [address] [place] [address] Dr. Frank Nugent Start: 07-19-2020 Basic metabolic [...] 05-02-2018 PULSE OXIMETRY, CONTINUOUS SANJU SAVANAH Start: 12-22-2018 INCENTIVE SPIROMETRY RT SANJU SAVANAH Start: 05-01-2018 INCENTIVE SPIROMETRY RT SANJU SAVANAH Start: 05-01-2018 PULSE OXIMETRY, CONTINUOUS SANJU SAVANAH Start: 05-01-2018 INCENTIVE SPIROMETRY RT SANJU SAAVNAH Start: 05-01-2018 INCENTIVE SPIROMETRY RT SANJU SAVANAH [...] Start: 04-30-2018 FLUORO FOR SURGICAL PROCEDURES SANJU SAVANHA Start: 04-30-2018 Drug tst prsmv instr mnt [...] Status: Pen, Time: 1:30 PM [facility] Work Phone: Start: 01-12-2021 PST, Provider: JA[facility]MINE CASTLE [facility],PULM, Status: Pen, Time: 1:15 PM PST, [facility], Status: Pen, Time: 1:15 PM [facility] Work Phone: Start: 01-12-2021 PFT, Provider: JAZZMINE CASTLE 6TH FLR PFT RM1,PULM, Status: Pen, Time: 11:30 AM PFT, [facility] F[facility] PFT RM1,PULM, Status: Pen, Time: 11:30 AM [facility] Work Phone: Start: 12-15-2020 ECHO, Provider: KARISHMA AKERS,MG CARD, Status: Pen, Time: 2:00 PM ECHO, Provider: KARISHMA CHEUNGIMG CARD, Status: Pen, Time: 2:00 PM [facility] Work Phone: Immunizations Immunization Date Immunization Notes Care Provider Fa afia 09-18-2020 Pfizer-BioNTech COVI D-19 Vacc 30 MCG/0.3ML Intramuscular Suspension Referring Provider Unknown [facility] [place] 08-28-2020 Pfizer-BioNTech COVI D-19 Vacc 30 MCG/0.3ML Intramuscular Suspension Referring Provider Unknown [facility] [place] Payers Date Payer Category Payer Unknown [id number] 1970 Unknown [id number] 2.16.8 [id number] 1970 Unknown [id number] 2.16.8 [id number] 1970 Unknown [id number] 2.16.8 [id number] 1970 Unknown [id number] 2.16.84 [id number] 1970 Unknown [id number] 2.16.84 [id number] 1970 Unknown [id number] 2.16.8 [id number] 1970 Unknown [id number] 2.16.8 [id number] 1970 Unknown [id number] 2.16.8 [id number] 1970 Unknown [id number] 2.16.8 [id number] 1970 Unknown [id number] 2.16.8 [id number] 1957 Unknown [id number] 2.16.8 [id number] Unknown Social History Date Type Detail Facility Never a smoker Never a smoker [facility] Work Phone: Sex Assigned [facility] Start: 02-11-2023 End: 05-24-2024 Tobacco smoking status Never smoked tobacco (finding) [facility] [place] Tobacco smoking status Never [facility] [place] NEGATED: Highlighted row - - [facility] Work Phone: Functional Status Date Assessment Result Facility 05-24-2024 Functional Status N/A [facility] 03-30-2024 Functional Status N/A [facility] 02-11-2023 Functional Status N/A [facility] NEGATED: Highlighted row Functional performance Functional status health issues are not documented Disease [facility] Work Phone: Mental Status Date Assessment Result Facility NEGATED: Highlighted row Cognitive function [Interpretation] Cognitive status health issues are not documented Disease [facility] Work Phone: Clinical Notes 11-22-2020 to 05-24-2024 Note Date & Type Note Facility 05-24-2024 Hospital Discharge instructions Patient Education 05/24/2024 10:25:39 Laser Therapy for Kidney Stones Laser Therapy for Kidney Stones Laser therapy for kidney stones is a procedure to break up rock-like masses that form inside the kidneys (kidney stones). It is done using a device that beams a strong light (laser) on the kidney stones. This breaks the stones up into small pieces. These small pieces may leave your body when you pee (urinate) or may be taken out during the procedure. You may need laser therapy if you have kidney stones that are painful or that are stopping you from being able to pee. Tell a health care provider about: Any allergies you have. All medicines you are taking, including vitamins, herbs, eye drops, creams, and mxvw-peq-lxantrm medicines. Any problems you or family members have had with anesthesia. Any bleeding problems you have. Any surgeries you have had. Any medical conditions you have. Whether you are or may be . What are the risks? Your health care provider will talk with you about risks. These may include: Infection. Bleeding. Allergic reactions to medicines. Damage to: ?The part of your body that drains pee (urine) from the bladder (urethra). ?The bladder. ?The tube that connects the bladder to the kidneys (ureter). Urinary tract infection (UTI). Urethral stricture. This is when the urethra is narrowed by scarring. Trouble peeing. Blockage of the kidney. This may be caused by a piece of kidney stone. What happens before the procedure? When to stop eating and drinking Follow instructions from your provider about what you may eat and drink. These may include: 8 hours before the procedure ?Stop eating most foods. Do not eat meat, fried foods, or fatty foods. ?Eat only light foods, such as toast or crackers. ?All liquids are okay except energy drinks and alcohol. 6 hours before the procedure ?Stop eating. ?Drink only clear liquids, such as water, clear fruit juice, black coffee, plain tea, and sports drinks. ?Do not drink energy drinks or alcohol. 2 hours before the procedure ?Stop drinking all liquids. ?You may be allowed to take medicines with small sips of water. If you do not follow your provider's instructions, your procedure may be delayed or canceled. Medicines Ask your provider about: ?Changing or stopping your regular medicines. These include any diabetes medicines or blood thinners you take. ?Taking medicines such as aspirin and ibuprofen. These medicines can thin your blood. Do not take them unless your provider tells you to. ?Taking aczs-rwr-aqboufm medicines, vitamins, herbs, and supplements. Tests You may have a physical exam before the procedure. You may also have tests done. These may include: ?Imaging tests. ?Blood or pee tests. Surgery safety Ask your provider: ?How your surgery site will be marked. ?What steps will be taken to help prevent infection. These steps may include: ?Removing hair at the surgery site. ?Washing skin with a soap that kills germs. ?Taking antibiotics. General instructions Do not use any products that contain nicotine or tobacco for at least 4 weeks before the procedure. These products include cigarettes, chewing tobacco, and vaping devices, such as e-cigarettes. If you need help quitting, ask your provider. If you will be going home right after the procedure, plan to have a responsible adult: ?Take you home from the hospital or clinic. You will not be allowed to drive. ?Care for you for the time you are told. What happens during the procedure? An IV will be inserted into one of your veins. You will be given: ?A sedative. This helps you relax. ?Anesthesia. This keeps you from feeling pain. It will make you fall asleep for surgery. A tool with a camera on the end (ureteroscope) will be put into your urethra. It will be moved through your bladder to your kidney. It will send pictures to a screen in the operating room. This will show what parts of your kidney need to be treated. A tube will be put through the ureteroscope. It will be moved into your kidney. The laser device will be put into your kidney through the tube. The laser will be used to break up the kidney stones. A tool with a tiny wire basket may be put through the tube into your kidney. This can help remove the small pieces of the kidney stone. A small mesh tube (stent) may be placed to allow your kidney to drain. The tube and ureteroscope will be taken out at the end of the surgery. The procedure may vary among providers and hospitals. What happens after the procedure? Your blood pressure, heart rate, breathing rate, and blood oxygen level will be monitored until you leave the hospital or clinic. If you had a stent placed, it may have a string that will be secured to your skin. This helps your provider remove the stent. You may be given a strainer to collect any stone pieces that you pass in your pee. Your provider may have these tested. This information is not intended to replace advice given to you by your health care provider. Make sure you discuss any questions you have with your health care provider. Document Revised: 12/27/2022 Document Reviewed: 12/27/2022 Angiodroid Patient Education 2023 [employer]. 05/24/2024 10:25:38 Percutaneous Nephrolithotomy Percutaneous Nephrolithotomy Percutaneous nephrolithotomy is a procedure to remove kidney stones. Kidney stones are rock-like masses that form inside the kidneys. You may need this procedure if: You have kidney stones that are bigger than 2 cm (0.78 inch) wide. Your kidney stones have an odd shape to them. Other treatments have not worked. You have an infection brought on by the kidney stones. Tell a health care provider about: Any allergies you have. All medicines you are taking, including vitamins, herbs, eye drops, creams, and zewr-xbe-tvhulwm medicines. Any problems you or family members have had with anesthesia. Any bleeding problems you have. Any surgeries you have had. Any medical conditions you have. Whether you are or may be . What are the risks? Your health care provider will talk with you about risks. These may include: Infection. Bleeding. This may include blood in your pee (urine). Allergic reactions to medicines. Damage to other structures or organs. Damage to the kidney. Holes in the kidney. In most cases, these holes heal on their own. Numbness or tingling. Not being able to remove all the stones. If this happens, you may need more treatment. What happens before the procedure? When to stop eating and drinking Follow instructions from your provider about what you may eat and drink. These may include: 8 hours before your procedure ?Stop eating most foods. Do not eat meat, fried foods, or fatty foods. ?Eat only light foods, such as toast or crackers. ?All liquids are okay except energy drinks and alcohol. 6 hours before your procedure ?Stop eating. ?Drink only clear liquids, such as water, clear fruit juice, black coffee, plain tea, and sports drinks. ?Do not drink energy drinks or alcohol. 2 hours before your procedure ?Stop drinking all liquids. ?You may be allowed to take medicines with small sips of water. If you do not follow your provider's instructions, your procedure may be delayed or canceled. Medicines Ask your provider about: Changing or stopping your regular medicines. These include any diabetes medicines or blood thinners you take. Taking medicines such as aspirin and ibuprofen. These medicines can thin your blood. Do not take them unless your provider tells you to. Taking fgrs-dix-oqwwfco medicines, vitamins, herbs, and supplements. Tests You may have tests done. These may include: Blood and pee tests. An electrocardiogram (EKG). This checks how well your heart is working. Imaging studies. These may include an ultrasound or CT scan. They can help find: ?The size and number (stone burden) of the kidney stones. ?Where the kidney stones are. Surgery safety Ask your provider: ?How your surgery site will be marked. ?What steps will be taken to help prevent infection. These steps may include: ?Removing hair at the surgery site. ?Washing skin with a soap that kills germs. ?Receiving antibiotics. General instructions Plan to have a responsible adult: ?Take you home from the hospital. You will not be allowed to drive. ?Care for you for the time you are told. What happens during the procedure? An IV will be inserted into one of your veins. You will be given: ?A sedative. This helps you relax. ?Anesthesia. This keeps you from feeling pain. It will numb certain areas make you fall asleep for surgery. A soft tube (catheter) will be put in your bladder. This will drain pee out of your body during and after the procedure. Your surgeon will make a small incision in your lower back. A tube will be put through the incision into your kidney. Each kidney stone will be removed through this tube. Larger stones may need to be broken up with a beam of light (laser) or other tools. After all of the stones have been removed, your provider may put in another tube to help drain pee. This may be: ?A stent. This is put into the tube that connects the bladder to the kidney (ureter). It helps drain pee from your kidney to your bladder. ?A nephrostomy tube. This is put in your kidney. It comes out through the incision in your lower back. It helps drain pee or any fluid that builds up while your kidney heals. The incision may be closed with stitches (sutures). A bandage (dressing) will be placed over the incision area. The procedure may vary among providers and hospitals. What happens after the procedure? Your blood pressure, heart rate, breathing rate, and blood oxygen level will be monitored until you leave the hospital or clinic. Any tubes will be removed after 1 2 days if there is only a small amount of blood in your pee. This information is not intended to replace advice given to you by your health care provider. Make sure you discuss any questions you have with your health care provider. Document Revised: 12/26/2022 Document Reviewed: 12/26/2022 Angiodroid Patient Education 2023 [employer]. Follow Up Care 03/30/2024 10:32:55 With:POLY ISIDRO, Alex Cohen, URL Address: [facility] [employer] [address] [place], [place] [id number]- When: Unknown [facility] Renetta 03-30-2024 Hospital Discharge instructions Patient Education 03/30/2024 16:23:00 Kidney Stones, Gjhf-mr-Zhmm Kidney Stones Kidney stones are rock-like masses [...] Follow these instructions at home: Medicines Take lick-skg-othtcar and prescription medicines only as told by [...] provider. Document Revised: 12/20/2022 Document Reviewed: 12/20/2022 Angiodroid Patient Education 2023 [employer]. Follow Up Care 03/16/2024 13:13:27 With:POLY ISIDRO, Alex Cohen, URL Address: [facility] [place] [id number]- When:Within 6 Week(s) [facility] 03-30-2024 Note Urology Office/Clini c Note Chief [...] next ov. Ordered: HgbA1c Lab Specimen Collect [id number] PSA Total Urnls Dip Stick Auto w/o Microscopy POC 10650 4. Kidney stone (N20.0: Calculus of kidney) KUB done 01/23/23 showing Rt. nephrolithiasis with 1.1 cm stone projected over the pelvis, cannot r/o UPJ stone. CT done 01/29/23 - no hydro, +R stones (no details on size/location). -update imaging w/ KUB+KEVYN. Return to discuss possible stone tx w . Ordered: [id number] Measure Post Void residual urine and/or bladder capacity by US- non-imaging HgbA1c Lab Specimen Collect [id number] PSA Total US Renal XR Abdomen 1 View 5. Diabetes (E11.9: Type 2 diabetes mellitus without complications) A1C 7.5 done 08/10/22 Not sure of his DM meds. Discussed DM effect on LUTS. -A1c drawn IO today. Ordered: HgbA1c Lab Specimen Collect [id number] PSA Total 6. ED (erectile dysfunction) (N52.9: [...] day(s), # 60 cap(s), Refills(s) 11, Pharmacy: [id number], 180, cm, 03/30/24 9:46:00 EST, Height/Length Dosing, 149.8, kg, 03/30/24 9:46:00 EST, Weight Dosing Follow-up With When Contact Information POLY ISIDRO, Alex P, URL In [address] [address]- Additional Instructions: Patient Education Kidney Stones, Nmqj-yp-Jqtx Problem List/Past Medical History Ongoing Abnormal abdominal CT scan BMI 50.0-59.9, adult BPH with obstruction/lower urinary tract symptoms Diabetes ED (erectile dysfunction) Frequent UTI Hepatic steatosis Hepatomegaly History of nephrolithiasis HTN (hypertension) Hypercholesteremia Hyperplastic rectal polyp Interstitial lung disease LLQ abdominal pain Mediastinal lymphadenopathy Mediastinal lymphadenopathy Morbid obesity Obstructive sleep apnea syndrom (more content not included)... [facility] Comment on above: Result Comment: Elec tronically Signed By: ROSAURA PA-JAIME Perdue\Date and Time Signed: 03/30/24 16:24 EST 03-30-2024 [...] these instructions at home: Medicines ??? Take ixjp-lrd-zrevubm and prescription medicines only as told by [...] provider. Document Revised: 12/20/2022 Document Reviewed: 12/20/2022 Angiodroid Patient Education ? 2023 [employer]. [facility] 11-22-2020 History of Present illness Narrative Mr. Wilson is a 50 y.o man, never a smoker, being evaluated for dyspnea on exertion and sarcoidosis.PCP: Dr. Pereira: Dr. Adan (pulmonary in [place])HPI:11/22/2020: At baseline, he had no dyspnea on [...] He was started on prednisone by his learning and development officer in July. He initially felt slightly improved but shortly started worsening again. 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 Has known exposure to asbestos, silica or [...] body habitus. ?RV enlargement but preserved RV phhobidb50/13/2020 -> NM stress test with No ischemia, normal wall motion, lower normal EF, left ventriculomegalyLabs:None on record [facility] [facility] Sleep Work Phone: 11-22-2020 History of Present illness Narrative Mr. Wilson is a 50 y.o man, never a smoker, being evaluated for dyspnea on exertion and sarcoidosis.PCP: Dr. Pereira: Dr. Adan (pulmonary in [place])HPI:11/22/2020: At baseline, he had no dyspnea on [...] He was started on prednisone by his learning and development officer in July. He initially felt slightly improved but shortly started worsening again. 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 Has known exposure to asbestos, silica or [...] body habitus. ?RV enlargement but preserved RV meiobwpd88/13/2020 -> NM stress test with No ischemia, normal wall motion, lower normal EF, left ventriculomegalyLabs:None on record [facility] [employer] Work Phone: 11-22-2020 History of Present illness Narrative Mr. Wilson is a 50 y.o man, never a smoker, being evaluated for dyspnea on exertion and sarcoidosis.PCP: Dr. Pereira: Dr. Adan (pulmonary in [place])HPI:11/22/2020: At baseline, he had no dyspnea on [...] He was started on prednisone by his learning and development officer in July. He initially felt slightly improved but shortly started worsening again. 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 Has known exposure to asbestos, silica or [...] body habitus. ?RV enlargement but preserved RV qoyiqwyb02/13/2020 -> NM stress test with No ischemia, normal wall motion, lower normal EF, left ventriculomegalyLabs:None on record [facility] 1800 Work Phone: 11-22-2020 History of Present illness Narrative Mr. Wilson is a 50 y.o man, never a smoker, being evaluated for dyspnea on exertion and sarcoidosis.PCP: Dr. Pereira: Dr. Adan (pulmonary in [place])HPI:11/22/2020: At baseline, he had no dyspnea on [...] He was started on prednisone by his learning and development officer in July. He initially felt slightly improved but shortly started worsening again. 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 Has known exposure to asbestos, silica or berylliumCTD evaluation: No hx of joint pain/swelling, skin rashes, Raynaud's, sicca syndrome, eye redness, muscle pain and weakness, difficulty swallowing.Family History:No family history of lung diseases or cancerImaging history: (I have personally reviewed the imaging below)12/15/2020 HRCT with hilar/mediastinal ADP but clear tcpzsffeto84/24/2021: CTPE with hilar/mediastinal ADP but clear parenchymaPFTs:01/12/2021 -> Ratio of 0.77/FEV1 3.67L (74%) (no BD response)/FVC 2.82L (72%)/TLC 76%/RVtoTLC ratio 0.42/DLCO 89%6 MWTs:01/12/2021->on RA, 191 m. Peak SpO2 of 95%. Gary SpO2 92%. (HR went up from 85 to 120 and BP from 150-202 systolic)Lung biopsy: None on recordEcho:12/15/2020 -> Normal EF, no diastolic dysfunction, with normal LA, RV size and pcvugjgl38/24/2020 -> difficult to interpret images, probably 2/2 body habitus. ?RV enlargement but preserved RV tgvooqsh56/13/2020 -> NM stress test with No ischemia, normal wall motion, lower normal EF, left ventriculomegalyLabs:CBC with lymphopenia (590)low 25 OH vitamin D but high 1-25 OH vitamin D, elevated 24hr urine calcium without hematuria [facility] [facility] Work Phone: Evaluation + Plan note No data available for this section General [facility] [place] Evaluation + Plan note Future Appointments Appointment Date:05/24/2024 09:30:00 AM Scheduled Provider:Alex PANG MD Location:[facility] Appointment Type:URO Office Visit [facility] Evaluation + Plan note [facility] Evaluation note No Information Palamida Other History general Narrative - Reported Type Medical History Hypertension Medical History hypercholesterolemia Medical History back pain Medical History rotator cuff tear Surgical History rotator cuff Surgical History back surgery X2 Hospitalization History see above [facility] Other Hospital Discharge instructions No data available for this section General [facility] [place] Progress note No data available for this section General [facility] [place] Reason for referral (narrative) Referred by: Alex PANG MD [facility] Summary Purpose Family History uncle Name Dates Details Family history of [...] section and content) DATE CREATED AUTHOR 05/08/2018 [facility] DATE CREATED AUTHOR AUTHOR'S ORGANIZ ATION 01/14/2021 [facility] DATE CREATED AUTHOR AUTHOR'S ORGANIZ ATION 01/14/2021 [employer] DATE CREATED AUTHOR AUTHOR'S ORGANIZ ATION 07/30/2021 [facility] DATE CREATED AUTHOR AUTHOR'S ORGANIZ ATION 09/19/2022 [facility] DATE CREATED AUTHOR AUTHOR'S ORGANIZ ATION 04/01/2024 [facility] DATE CREATED AUTHOR AUTHOR'S ORGANIZ ATION 04/02/2024 [facility] DATE CREATED AUTHOR AUTHOR'S ORGANIZ ATION 04/06/2024 [facility] REASON FOR VISIT (unrecogniz ed section and content) NAUSEAUS, HAVING PROBLEMS UR INATING, AND IT IS DARK Patient Care team informatio n (unrecognized section and content) Personnel Name: Doron Camacho MD Address: Address: [address] [place] [address] Personnel Name: Doron Camacho MD Address: Address: [address] [place] [address] Personnel Name: Doron Camacho MD Address: Address: [address] [place] [address] Personnel Name: Doron Camacho MD Address: Address: [address] [place] [address] Personnel Name: Doron Camacho MD Address: Address: [address] [place] [address] FOR RECORDS PERTAINING TO PATIENTS WHO ARE [...] BE BASED ON THE PRIMARY CLINICAL RECORDS. [facility] [employer] [facility]. provides no warranty or guarantee of the accuracy or completeness of information in this document.
== END 2024-05-26 08:11 | disposition home or self-care (01) ==
LOC: LAB 08:10
PROVIDERS: PCP Family Medicine; Visit Provider Urology
DX: N20.0 Calculus of kidney (principal); R31.0 Gross hematuria; R10.9 Unspecified abdominal pain
CPT/HCPCS: 36415; 74178; 82565; Q9967

== ENCOUNTER 2024-08-22 12:02 | Inpatient (IN) | payer OTHER, SELFPAY ==
[2024-08-22] VITALS (76 sets, daily range): BP systolic 59–172; BP diastolic 0–119; PULSE 88–167; TEMP 36.8–38.6; O2SAT 91–98; BMI 49.9
--- OUTSIDE RECORDS SUMMARY | 2024-08-22 12:09 | XMS_ITS | CCD ---
Author Organization [facility] Care Team Providers Care Oyster Shipper Name Role Phone SAVANAH, GIACOMO H. Unavailable Unavailable SAVANAH, GIACOMO H. Unavailable Unavailable DORON ZUÑIGA Unavailable Unavailable SAVANAH, GIACOMO H. Unavailable Unavailable SAVANAH, GIACOMO H. Unavailable Unavailable DORON ZUÑIGA M Unavailable Unavailable SAVANAH, GIACOMO H. Unavailable Unavailable Unknown, Referring Provider Unavailable [...] Unavailable HOY ., DR SAL Consulting Unavailable HOY ., DR SAL Attending Unavailable Doron Zuñiga Primary Care Physician [phone] JAIME KAPLAN Attending Unavailable JAIME KAPLAN Admitting Unavailable Alex PANG Attending Unavailable TIM KAPLAN Attending Unavailab Doron Betancur Referring Unavailable TIM KAPLAN Attending Unavailab TIM Chahal Admitting Unavailab le Unavailable Primary Care Provider UnavailSOFIE Adame Referring Unavailable SOFIE DURBIN Admitting Unavailable SOFIE DURBIN Attending Unavailable SOFIE DURBIN Referring Unavailable SOFIE DURBIN Admitting Unavailable SOFIE DURBIN Attending Unavailable DORON ZUÑIGA Primary Care Unavailable Allergies Allergy Classification Reported Allergen(s) Allergy Type Date of Onset Reaction(s) Facility (1 source) No Known Medication Allergies; Translations: [No Known Medication Allergies] Propensity to adverse reactions (disorder) [facility] Repository Medications Current Medications Medication Drug Class(es) Dates Sig (Normalized) Sig (Original) acetaminophen 325 mg oral tablet (1 source) Start: 07-29-2024 take 1 tablet by mouth every six hours 650 mg, oral, Every 6 hours, First dose on Hillary 07/29/24 at 2200, Recovery [facility] On Unit, If ordered PRN for pain, nurse is permitted to administer this medication for higher pain scores based on patient preference? Yes bisacodyl 5 mg delayed release oral tablet (1 source) Stimulant Laxative Start: 07-29-2024 take 1 tablet by mouth every twenty-four hours as needed ceFAZolin 2000 mg injection (1 source) Cephalosporin Antibacterial Start: 07-29-2024 End: 07-30-2024 take 2 g intravenously every eight hours 2 g, intravenous, Administer over 30 Minutes, Every 8 hours, First dose on Hillary 07/29/24 at 2330, For 3 doses, Phase II/On Unit, premix bag, Dosing of this medication varies based on severity of illness. Does this patient have sepsis or concern for sepsis (probable or documented infection plus systemic manifestations of infection)? No, Suspected Indication (Select all that apply): Surgical Prophylaxis, Indications: Surgical Prophylaxis cephalexin 500 mg oral capsule (1 source) Cephalosporin Antibacterial Start: 07-30-2024 End: 08-02-2024 take 1 capsule by mouth three times daily cephalexin (Keflex) 500 mg capsule Indications: Right kidney stone Take 1 capsule (500 mg) by mouth 3 times a day for 3 days. 9 capsule 07/30/2024 10:32 AM EDT 07/30/2024 08/02/2024 Active fenofibrate 160 mg oral tablet (9 sources) Peroxisome Proliferator Receptor alpha Agonist Start: 02-05-2023 take 160 mg by mouth once daily 160 mg, oral, Daily, First dose on Fri07/30/24 at 0900, Recovery & On Unit Fenofibrate Acti ve Gentamicin Sulfate (SKILLED NURSING) (1 source) Start: 10-11-2018 take 2 drop(s) into the eye(s) every four hours Garamycin 0.3 % 2 drops in affected eye Ophthalmic q 4 hours while awake for 5 days Oct, Active 1 ml hydrALAZINE hydrochloride 20 mg/ml injection (1 source) Arteriolar Vasodilator Start: 07-29-2024 take 10 mg intravenously every six hours as needed irbesartan 150 mg oral tablet (3 sources) Angiotensin 2 Receptor Ellis Start: 04-02-2024 take 1 mg by mouth once daily irbesartan 150 mg Tab mg tab(s), Oral, Daily, Refills(s) 0 Start Date: 04/02/24 Status: Ordered 1 ml ketorolac tromethamine 15 mg/ml injection (2 sources) Nonsteroidal Anti-inflammatory Drug, Cyclooxygenase Inhibitor Start: 07-29-2024 End: 08-01-2024 take 15 mg intravenously every six hours as needed Start: 12-17-2014 Toradol per 15 mg Dec, 60 mg losartan potassium 50 mg oral tablet (1 source) Angiotensin 2 Receptor Ellis Start: 07-30-2024 take 50 mg by mouth once daily 50 mg, oral, Daily, First dose on Fri07/30/24 at 0900, Recovery & On Unit metFORMIN hydrochloride 500 mg oral tablet (3 sources) Biguanide Start: 04-02-2024 take 500 mg by mouth twice daily 500 mg, oral, 2 times daily (morning and late afternoon), First dose on Fri07/30/24 at 0800, Recovery [facility] On Unit Ondansetron (2 sources) Serotonin-3 Receptor Antagonist Start: 07-29-2024 take 1 tablet by mouth every eight hours as needed ondansetron (Zofran) tablet 4 mg Start: 07-29-2024 End: 07-29-2024 4 mg, intravenous, Once as n eeded, nausea/vomiting, first line, Starting on Hillary 07/29/24 at 1849, For 1 dose, Recovery (only), When administering via IV Push, administer over 3-5 minutes. oxaprozin 600 mg oral tablet (12 sources) Nonsteroidal Anti-inflammatory Drug Start: 02-05-2023 take 2 tablets by mouth once daily oxaprozin 600 mg Tab 1,200 mg = 2 tab(s), Oral, Daily, Refills(s) 0 Start Date: 02/05/23 Status: Ordered Oxaprozin Active Oxaprozin TABS Q uantity: 0 Refills: 0 Ordered: 22-Nov-2020 DO Active oxyCODONE hydrochloride 5 mg oral tablet (2 sources) Opioid Agonist Start: 07-29-2024 End: 08-02-2024 take 1 tablet by mouth every six hours for pain oxyCODONE (Roxicodone) 5 mg immediate release tablet Indications: Right kidney stone Take 1 tablet (5 mg) by mouth every 6 hours if needed for severe pain (7 - 10) for up to 3 days. 8 tablet 07/30/2024 10:32 AM EDT 07/30/2024 08/02/2024 Active oxygen (O2) therapy (3 sources) Start: 07-29-2024 inhalation, Continuous PRN - O2/gases, other, Starting on Fri07/29/24 at 2255, Device: Nasal Cannula, Rate in liters per minute: Other, Custom Value: 1-4 LPM, Keep O2 Sat Above: 92% Start: 07-29-2024 End: 07-29-2024 inhalation, Continuous - 02/ gases, First dose on Fri07/29/24 at 1915, Recovery (only), Device: Simple Face Mask, Rate in Liters per minute: 10 LPM, Keep O2 Sat Above: 92% Start: 07-29-2024 End: 07-29-2024 Continuous PRN, Starting on Fri07/29/24 at 1017, Intraprocedure PARoxetine hydrochloride 20 mg oral tablet (9 sources) Serotonin Reuptake Inhibitor Start: 07-30-2024 take 60 mg by mouth once daily in the morning 60 mg, oral, Every morning, First dose on Fri07/30/24 at 0900, [facility] On Unit Start: 02-05-2023 take 1 tablet by silvia th once daily paroxetine 40 mg Tab 40 mg = 1 tab(s), Oral, Daily, Refills(s) 0 Start Date: 02/05/23 Status: Ordered take 1.5 tablets by mouth once daily in the morning PARoxetine (Paxil) 40 mg tablet Take 1.5 tablets (60 mg) by mouth once daily in the morning. Active PARoxetine HCl A ctive simvastatin 40 mg oral tablet (8 sources) HMG-CoA Reductase Inhibitor Start: 07-29-2024 take 40 mg by mouth once daily in the evening 40 mg, oral, Every evening, First dose on Fri07/29/24 at 2200, Recovery [facility] On Unit Start: 02-05-2023 simvastatin 0 Refill(s), Refills(s) 0 Start Date: 9/27/23 Status: Ordered Simvastatin Acti ve SUMAtriptan 100 mg oral tabl et (3 sources) Serotonin-1b and Serotonin-1d Receptor Agonist Start: 07-29-2024 take 1 tablet by silvia once, then take 1 tablet by mouth every two hours SUMAtriptan (Imitrex) 100 mg tablet Take 1 tablet (100 mg) by mouth 1 time if needed for migraine. May repeat an additional dose after 2 hours Active tamsulosin hydrochloride 0.4 mg oral capsule (7 sources) alpha-Adrenergic Ellis Start: 07-30-2024 End: 08-29-2024 take 2 capsules by mouth once daily tamsulosin (Flomax) 0.4 mg 24 hr capsule Indications: Right kidney stone Take 2 capsules (0.8 mg) by mouth once daily. 60 capsule 07/30/2024 10:32 AM EDT 07/30/2024 08/29/2024 Active Start: 07-30-2024 take 1 capsule by mo cox branson once daily at mealtime 0.8 mg, oral, Daily, First dose on Fri07/30/24 at 0900, Recovery & On Unit, Give 30 minutes after the same mealtime each day. Capsules should be swallowed whole; do not crush, chew, or open. Start: 03-30-2024 End: 03-25-2025 take 2 capsules by mouth once daily Flomax 0.4 mg Cap 0.8 mg = 2 cap(s), Oral, Daily, X 30 day(s), # 60 cap(s), Refills(s) 11, Pharmacy: [id number], 180, cm, 03/30/24 9:46:00 EST, Height/Length Dosing, 149.8, kg, 03/30/24 9:46:00 EST, Weight Dosing Start Date: 03/30/24 Stop Date: 03/25/25 Status: Ordered tiZANidine 4 mg oral capsule (2 sources) Central alpha-2 Adrenergic Agonist take 1 capsule by mouth once daily at bedtime tiZANidine (Zanaflex) 4 mg capsule Take 1 capsule (4 mg) by mouth once daily at bedtime. Active Completed/Discontinued Medications Medication Drug Class(es) Dates Sig (Normalized) Sig (Original) 1 ml fentaNYL 0.05 mg/ml injection (2 sources) Opioid Agonist Start: 07-29-2024 End: 07-29-2024 intravenous, Once PRN Procedure, Starting on Hillary 07/29/24 at 1037, For 1 dose, Intraprocedure 0.5 ml HYDROmorphone hydrochloride 1 mg/ml prefilled syringe (1 source) Opioid Agonist Start: 07-29-2024 End: 07-29-2024 0.5 mg, intravenous, Every 5 min PRN, pain moderate (4-6), first line, Starting on Hillary 07/29/24 at 1849, Recovery (only), Max total of 4 mg regardless of dose. iohexol (OMNIPaque) 350 mg iodine/mL solution 50 mL (1 source) Start: 07-29-2024 End: 07-29-2024 50 mL, miscellaneous, Once in imaging, Starting on Hillary 07/29/24 at 1101, For 1 dose 10 ml lidocaine hydrochloride 10 mg/ml injection (2 sources) Antiarrhythmic, Amide Local Anesthetic Start: 07-29-2024 End: 07-29-2024 infiltration, Once PRN Procedure, Starting on Hillary 07/29/24 at 1053, For 1 dose, Intraprocedure 5 ml metoprolol tartrate 1 mg/ml injection (14 sources) beta-Adrenergic Ellis Start: 07-29-2024 End: 07-29-2024 5 mg, intravenous, Every 30 min PRN, For SBP>180 with a HR>60, Starting on Hillary 07/29/24 at 1849, For 4 doses, Recovery (only) Start: 02-05-2023 take 100 mg by mouth twice daily 100 mg, oral, 2 times daily, First dose on Hillary 07/29/24 at 2200, Recovery & On Unit Metoprolol Tartr ate Active Metoprolol Tartr ate TABS Quantity: 0 Refills: 0 Ordered: 22-Nov-2020 DO Active 5 ml midazolam 1 mg/ml injection (3 sources) Benzodiazepine Start: 07-29-2024 End: 07-29-2024 2 mg, intravenous, Once, On Hillary 07/29/24 at 1430, For 1 dose, Preprocedure Start: 07-29-2024 End: 07-29-2024 intravenous, Once PRN Proced ure, Starting on Hillary 07/29/24 at 1037, For 1 dose, Intraprocedure predniSONE 10 mg oral tablet (6 sources) Start: 11-28-2020 End: 01-12-2021 predniSONE 10 MG Oral Tablet 40 mg for 2 days, 30 mg for 2 days, 20 mg for 2 days, 10 mg for 2 days. Quantity: 20 Refills: 3 Ordered: 28-Nov-2020 Carter Dangelo MD Start : 28-Nov-2020 End : 12-Jan-2021 [...] Onset: 04-22-20 Episodic Calculus of urinary tract (19 sources) History of calculus of kidney; Translations: [...] 02-05-2023 Chronic Other aftercare (1 source) Other intermission coordinator (current) drug therapy; Translations: [OTH HALF-WAY CURRENT DRUG THERAPY] Onset: 09-18-19 Episodic Other [...] Test Name Value Interpretation Reference Range Facility Basic metabolic 2000 panelon 07-30-2024 Anion gap [Moles/Vol] 14 mmol/L 10 - 20 mmol/L [facility] Calcium [Mass/Vol] 8.9 mg/dL 8.6 - 10. 3 mg/dL [facility] Chloride [Moles/Vol] 101 mmol/L 98 - 10 7 mmol/L [facility] CO2 [Moles/Vol] 27 mmol/L 21 - 32 mmol/L [facility] Creatinine [Mass/Vol] 1.03 mg/dL 0.50 - 1.30 mg/dL [facility] GFR/1.73 sq M.predicted among non-blacks MDRD (S/P/Bld) [Vol rate/Area] 88 mL/min/{1.73_m2} - PINF [facility] Comment on above: Calculations of jeanette mated GFR are performed using the 2020 CKD-EPI Study Refit equation without the race variable for the IDMS-Traceable creatinine methods. https://jasn.asnjournals.org/content//ASN.0763922 988 Glucose [Mass/Vol] 171 mg/dL High 74 - 99 mg/dL [facility] Interpretation and review of laboratory results Abnormal [facility] Potassium [Moles/Vol] 3.6 mmol/L 3.5 - 5.3 mmol/L [facility] Sodium [Moles/Vol] 138 mmol/L 136 - 145 mmol/L [facility] Urea nitrogen [Mass/Vol] 15 mg/dL 6 - 23 mg/dL [facility] Anion gap [Moles/Vol] 14 mmol/L Normal 10-20 [facility] Comment on above: Performed By: #### 5 8077-9 #### CHARISMA AVILES ([id number]) [facility] [address] [place] [address] Calcium [Mass/Vol] 8.9 mg/dL Normal 8.6-10.3 [facility] Comment on above: Performed By: #### 5 8077-9 #### CHARISMA AVILES ([id number]) [facility] [address] [place] [address] Chloride [Moles/Vol] 101 mmol/L Normal 98-107 [facility] Comment on above: Performed By: #### 5 8077-9 #### CHARISMA AVILES ([id number]) [facility] [address] [place] [address] CO2 [Moles/Vol] 27 mmol/L Normal 21-32 [facility] Comment on above: Performed By: #### 5 8077-9 #### CHARISMA AVILES ([id number]) [facility] [address] [place] [address] Creatinine [Mass/Vol] 1.03 mg/dL Normal 0.50-1.30 [facility] Comment on above: Performed By: #### 5 8077-9 #### CHARISMA AVILES ([id number]) [facility] [address] [place] [address] Glomerular filtration rate/1.73 sq M.predicted 88 mL/min/1.73m*2 Normal >60 [facility] Comment on above: Result Comment: Calc ulations of estimated GFR are performed using the 2020 CKD-EPI Study Refit equation without the race variable for the IDMS-Traceable creatinine methods. https://jasn.asnjournals.org/content//ASN.0695069 988 Performed By: #### 5 8077-9 #### CHARISMA AVILES ([id number]) [facility] [address] [place] [address] Glucose [Mass/Vol] 171 mg/dL High 74-99 [facility] Comment on above: Performed By: #### 5 8077-9 #### CHARISMA AVILES ([id number]) [facility] [address] [place] [address] Potassium [Moles/Vol] 3.6 mmol/L Normal 3.5-5.3 [facility] Comment on above: Performed By: #### 5 8077-9 #### CHARISMA AVILES ([id number]) [facility] [address] [place] [address] Sodium [Moles/Vol] 138 mmol/L Normal 136-145 [facility] Comment on above: Performed By: #### 5 8077-9 #### CHARISMA AVILES ([id number]) [facility] [address] [place] [address] Urea nitrogen [Mass/Vol] 15 mg/dL Normal 6-23 [facility] Comment on above: Performed By: #### 5 8077-9 #### CHARISMA AVILES ([id number]) [facility] [address] [place] [address] CBC panel Auto (Bld)on 07-30 Erythrocyte distribution width (RBC) [Ratio] 12.9 % 11.5 - 14.5 % [facility] Hematocrit (Bld) [Volume fraction] 40.6 % Low 41.0 - 52.0 % [facility] Hemoglobin (Bld) [Mass/Vol] 13.6 g/dL 13.5 - 17.5 g/dL [facility] Interpretation and review of laboratory results Abnormal [facility] MCH (RBC) [Entitic mass] 29.4 pg 26.0 - 34.0 pg [facility] MCHC (RBC) [Mass/Vol] 33.5 g/dL 32.0 - 36.0 g/dL [facility] MCV (RBC) [Entitic vol] 88 fL 80 - 100 fL [facility] Nucleated RBC/100 WBC (Bld) [Ratio] 0 % [facility] Platelets (Bld) [#/Vol] 211 10*3/uL [facility] RBC (Bld) [#/Vol] 4.62 10*6/uL [facility] WBC (Bld) [#/Vol] 9.5 10*3/uL [facility] Erythrocyte distribution width (RBC) [Ratio] 12.9 % Normal 11.5-14.5 [facility] Comment on above: Performed By: #### 5 8077-9 #### CHARISMA AVILES ([id number]) [facility] [address] [place] [address] Hematocrit (Bld) [Volume fraction] 40.6 % Low 41.0-52.0 [facility] Comment on above: Performed By: #### 5 8077-9 #### CHARISMA AVILES ([id number]) [facility] [address] [place] [address] Hemoglobin (Bld) [Mass/Vol] 13.6 g/dL Normal 13.5-17.5 [facility] Comment on above: Performed By: #### 5 8077-9 #### CHARISMA AVILES ([id number]) [facility] [address] [place] [address] MCH (RBC) [Entitic mass] 29.4 pg Normal 26.0-34.0 [facility] Comment on above: Performed By: #### 5 8077-9 #### CHARISMA AVILES ([id number]) [facility] [address] [place] [address] MCHC (RBC) [Mass/Vol] 33.5 g/dL Normal 32.0-36.0 [facility] Comment on above: Performed By: #### 5 8077-9 #### CHARISMA AVILES ([id number]) [facility] [address] [place] [address] MCV (RBC) [Entitic vol] 88 fL Normal 80-100 [facility] Comment on above: Performed By: #### 5 8077-9 #### CHARISMA AVILES ([id number]) [facility] [address] [place] [address] Nucleated RBC/100 WBC (Bld) [Ratio] 0.0 /100 WBCs Normal 0.0-0.0 [facility] Comment on above: Performed By: #### 5 8077-9 #### CHARISMA AVILES ([id number]) [facility] [address] [place] [address] Platelets (Bld) [#/Vol] 211 x10*3/uL Normal 150-450 [facility] Comment on above: Performed By: #### 5 8077-9 #### CHARISMA AVILES ([id number]) [facility] [address] [place] [address] RBC (Bld) [#/Vol] 4.62 x10*6/uL Normal 4.50-5.90 [facility] Comment on above: Performed By: #### 5 8077-9 #### CHARISMA AVILES ([id number]) [facility] [address] [place] [address] WBC (Bld) [#/Vol] 9.5 x10*3/uL Normal 4.4-11.3 [facility] Comment on above: Performed By: #### 5 8077-9 #### CHARISMA AVILES ([id number]) [facility] [address] [place] [id number] Basic metabolic 2000 panelon 07-29-2024 Anion gap [Moles/Vol] 18 mmol/L 10 - 20 mmol/L [facility] Calcium [Mass/Vol] 8.8 mg/dL 8.6 - 10. 3 mg/dL [facility] Chloride [Moles/Vol] 101 mmol/L 98 - 10 7 mmol/L [facility] CO2 [Moles/Vol] 22 mmol/L 21 - 32 mmol/L [facility] Creatinine [Mass/Vol] 1.09 mg/dL 0.50 - 1.30 mg/dL [facility] GFR/1.73 sq M.predicted among non-blacks MDRD (S/P/Bld) [Vol rate/Area] 82 mL/min/{1.73_m2} - PINF [facility] Comment on above: Calculations of jeanette mated GFR are performed using the 2020 CKD-EPI Study Refit equation without the race variable for the IDMS-Traceable creatinine methods. https://jasn.asnjournals.org/content//ASN.9226981 988 Glucose [Mass/Vol] 266 mg/dL High 74 - 99 mg/dL [facility] Interpretation and review of laboratory results Abnormal [facility] Potassium [Moles/Vol] 4.1 mmol/L 3.5 - 5.3 mmol/L [facility] Sodium [Moles/Vol] 137 mmol/L 136 - 145 mmol/L [facility] Urea nitrogen [Mass/Vol] 17 mg/dL 6 - 23 mg/dL [facility] Anion gap [Moles/Vol] 18 mmol/L Normal 10-20 [facility] Comment on above: Performed By: #### 5 8077-9 #### CHARISMA AVILES ([id number]) [facility] [address] [place] [id number] Calcium [Mass/Vol] 8.8 mg/dL Normal 8.6-10.3 [facility] Comment on above: Performed By: #### 5 8077-9 #### CHARISMA AVILES ([id number]) [facility] [address] [place] [address] Chloride [Moles/Vol] 101 mmol/L Normal 98-107 [facility] Comment on above: Performed By: #### 5 8077-9 #### CHARISMA AVILES ([id number]) [facility] [address] [place] [address] CO2 [Moles/Vol] 22 mmol/L Normal 21-32 [facility] Comment on above: Performed By: #### 5 8077-9 #### CHARISMA AVILES ([id number]) [facility] [address] [place] [address] Creatinine [Mass/Vol] 1.09 mg/dL Normal 0.50-1.30 [facility] Comment on above: Performed By: #### 5 8077-9 #### CHARISMA AVILES ([id number]) [facility] [address] [place] [address] Glomerular filtration rate/1.73 sq M.predicted 82 mL/min/1.73m*2 Normal >60 [facility] Comment on above: Result Comment: Calc ulations of estimated GFR are performed using the 2020 CKD-EPI Study Refit equation without the race variable for the IDMS-Traceable creatinine methods. https://jasn.asnjournals.org/content/early/ASN.9361301 988 Performed By: #### 5 8077-9 #### CHARISMA AVILES ([id number]) [facility] [address] [place] [address] Glucose [Mass/Vol] 266 mg/dL High 74-99 [facility] Comment on above: Performed By: #### 5 8077-9 #### CHARISMA AVILES ([id number]) [facility] [address] [place] [address] Potassium [Moles/Vol] 4.1 mmol/L Normal 3.5-5.3 [facility] Comment on above: Performed By: #### 5 8077-9 #### CHARISMA AVILES ([id number]) [facility] [address] [place] [address] Sodium [Moles/Vol] 137 mmol/L Normal 136-145 [facility] Comment on above: Performed By: #### 5 8077-9 #### CHARISMA AVILES ([id number]) [facility]) [id number] [place], [place] [id number] Urea nitrogen [Mass/Vol] 17 mg/dL Normal 6-23 [facility] Comment on above: Performed By: #### 5 8077-9 #### CHARISMA AVILES ([id number]) [facility]) [id number] [place] [address] CALCULI (STONE) ANALYSISon 0 - Appearance (Stone) See Note Normal [facility] Comment on above: Order Comment: OVER is reported when the result is greater than the clinically reportable range. Result Comment: Spec imen consists of numerous brown and parker calculi fragments. The total weight is 507 mg. Performed By: #### 5 8077-9 #### CHARISMA AVILES ([id number]) [facility] [id number] [place] [address] Composition Nom (Stone) See Note Normal [facility] Comment on above: Order Comment: OVER is reported when the result is greater than the clinically reportable range. Result Comment: Calc christiano composed primarily of: 50% calcium oxalate monohydrate, 40% calcium oxalate dihydrate, and 10% calcium phosphate (hydroxy- and carbonate- apatite). INTERPRETIVE INFORMATION: Calculi (Stone) analysis Calculi are the products of physiological processes that yield crystalline compounds in a matrix of biological compounds and blood. Matrix components are not reported. The clinically significant crystalline components identified in calculi specimens are reported. Gross description may not be consistent with composition determined by FTIR analysis. Performed By: [facility] [address] [place] [id number] [employer] Specialist: Al Dumont MD, PhD CLIA Number: [id number] Performed By: #### 5 8077-9 #### CHARISMA AVILES ([id number]) [facility] [address] [place] [address] Specimen weight (Unsp spec) 507 mg Normal [facility] Comment on above: Order Comment: OVER is reported when the result is greater than the clinically reportable range. Performed By: #### 5 8077-9 #### CHARISMA AVILES ([id number]) [facility] ([facility] [address] [place] [address] CBC panel Auto (Bld)on 07-29 Erythrocyte distribution width (RBC) [Ratio] 12.5 % 11.5 - 14.5 % [facility] Hematocrit (Bld) [Volume fraction] 40.5 % Low 41.0 - 52.0 % [facility] Hemoglobin (Bld) [Mass/Vol] 13.8 g/dL 13.5 - 17.5 g/dL [facility] Interpretation and review of laboratory results Abnormal [facility] MCH (RBC) [Entitic mass] 30.1 pg 26.0 - 34.0 pg [facility] MCHC (RBC) [Mass/Vol] 34.1 g/dL 32.0 - 36.0 g/dL [facility] MCV (RBC) [Entitic vol] 88 fL 80 - 100 fL [facility] Nucleated RBC/100 WBC (Bld) [Ratio] 0 % [facility] Platelets (Bld) [#/Vol] 168 10*3/uL [facility] RBC (Bld) [#/Vol] 4.59 10*6/uL [facility] WBC (Bld) [#/Vol] 9.4 10*3/uL [facility] Erythrocyte distribution width (RBC) [Ratio] 12.5 % Normal 11.5-14.5 [facility] Comment on above: Performed By: #### 5 8410-2 #### CHARISMA AVILES ([id number]) [facility] ([facility] [id number] [place] [address] Hematocrit (Bld) [Volume fraction] 40.5 % Low 41.0-52.0 [facility] Comment on above: Performed By: #### 5 8410-2 #### CHARISMA AVILES ([id number]) [facility] ([facility]) [id number] [place] [address] Hemoglobin (Bld) [Mass/Vol] 13.8 g/dL Normal 13.5-17.5 [facility] Comment on above: Performed By: #### 5 8410-2 #### CHARISMA AVILES ([id number]) [facility] ([facility]) [id number] [place] [address] MCH (RBC) [Entitic mass] 30.1 pg Normal 26.0-34.0 [facility] Comment on above: Performed By: #### 5 8410-2 #### CHARISMA AVILES ([id number]) [facility] ([facility]) [address] [place] [address] MCHC (RBC) [Mass/Vol] 34.1 g/dL Normal 32.0-36.0 [facility] Comment on above: Performed By: #### 5 8410-2 #### CHARISMA AVILES ([id number]) [facility] ([facility]) [address] [place] [address] MCV (RBC) [Entitic vol] 88 fL Normal 80-100 [facility] Comment on above: Performed By: #### 5 8410-2 #### CHARISMA AVILES ([id number]) [facility] ([facility]) [address] [place] [address] Nucleated RBC/100 WBC (Bld) [Ratio] 0.0 /100 WBCs Normal 0.0-0.0 [facility] Comment on above: Performed By: #### 5 8410-2 #### CHARISMA AVILES ([id number]) [facility] ([facility]) [address] [place] [address] Platelets (Bld) [#/Vol] 168 x10*3/uL Normal 150-450 [facility] Comment on above: Performed By: #### 5 8410-2 #### CHARISMA AVILES ([id number]) [facility] ([facility]) [id number] [place] [address] RBC (Bld) [#/Vol] 4.59 x10*6/uL Normal 4.50-5.90 [facility] Comment on above: Performed By: #### 5 8410-2 #### CHARISMA AVILES ([id number]) [facility] ([facility]) [id number] [place] [address] WBC (Bld) [#/Vol] 9.4 x10*3/uL Normal 4.4-11.3 [facility] Comment on above: Performed By: #### 5 8410-2 #### CHARISMA AVILES ([id number]) [facility] ([facility]) [id number] [place] [address] Coagulation tissue factor in ducedon 07-29-2024 PT Coag (PPP) [Time] 9.8 s Normal 9.8-12.4 [facility] Comment on above: Performed By: #### 5 902-2 #### CHARISMA AVILES ([id number]) [facility] ([facility]) [id number] [place] [address] FL FLUORO IMAGES NO CHARGEon 07-29-2024 FL FLUORO IMAGES NO CHARGE These images are not reportable by radiology and will not be interpreted by Radiologists. Normal [facility] Glucose Test strip manual (B ld) [Mass/Vol]on 07-29-2024 Glucose [Mass/Vol] 246 mg/dL High 74 - 99 mg/dL [facility] Interpretation and review of laboratory results Abnormal [facility] Glucose [Mass/Vol] 246 mg/dL High 74-99 [facility] Comment on above: Performed By: #### 5 8077-9 #### CHARISMA AVILES ([id number]) [facility] ([facility] [address] [place] [address] Glucose [Mass/Vol] 187 mg/dL High 74 - 99 mg/dL [facility] Interpretation and review of laboratory results Abnormal [facility] Glucose [Mass/Vol] 187 mg/dL High 74-99 [facility] Comment on above: Performed By: #### 2 341-6 #### CHARISMA AVILES ([id number]) [facility] ([facility] [address] [place] [address] IR NEPHROURETERAL PLACEME NTon 07-29-2024 IR NEPHROURETERAL PLACEMENT Interpreted By: Radhames Romero, STUDY: IR NEPHROURETERAL PLACEMENT; 07/29/2024 12:14 pm INDICATION: Signs/Symptoms:KIDNEY STONE. COMPARISON: None. ACCESSION NUMBER(S): [id number] ORDERING CLINICIAN: SOFIE DURBIN TECHNIQUE: COLOR SEPARATION PHOTOGRAPHER: Radhames Romero MD CONSENT: The patient was informed of the nature of the proposed procedure. The purposes, alternatives, risks, and benefits were explained and discussed. All questions were answered and consent was obtained. RADIATION EXPOSURE: Dose: 570 mGy SEDATION: Moderate conscious intravenous sedation services (supervision of administration, induction, and maintenance) were provided by the physician performing the procedure with intravenous fentanyl and versed. Total intra-service sedation time from 1041-8386 hours (68 minutes). The physician was assisted by an independent trained observer, an interventional radiology nurse, in the continuous monitoring of the patient level of consciousness and physiologic status. MEDICATION/CONTRAST: 20 mL Omnipaque 350 TIME OUT: A time out was performed immediately prior to the procedure start with interventional team, correctly identifying the patient using multiple identifiers and ensuring the appropriate procedure and anatomy (including laterality, if applicable) were identified. The procedure consent form and all relevant laboratory and imaging tests were reviewed. The need for antibiotic administration or patient or procedure specific safety precautions or equipment was reviewed. COMPLICATIONS: None immediate FINDINGS: The patient was placed in the prone position on the angiography table. The right flank was prepped and draped in a sterile fashion. Utilizing sonographic and fluoroscopic guidance, a 22 gauge needle was introduced into a posterior, stone containing, calyceal diverticulum. I was able to advanced the 0.018 inch wire into the diverticulum after confirming the location with sonography. The 0.018 inch wire would not pass through the stenose infundibulum into the renal collecting system. I advanced a ST microcatheter over a 0.018 inch micro Glidewire in an attempt to find the outlet, but this was unsuccessful as well. Next under direct sonographic guidance I accessed the visible upper pole pole calyx. The stylet was withdrawn and a small amount of contrast was injected to confirm positioning of the needle tip. An 0.018 wire was advanced into the collecting and negotiated into the renal pelvis and proximal ureter under fluoroscopic guidance. The needle was removed over the wire and a 5 Somali coaxial dilator was placed over the wire. The inner dilator and wire were removed. A small amount of contrast was injected confirming location of the catheter. This demonstrates stones within the system, but no hydronephrosis. Through the catheter a 0.035 wire was advanced to the urinary bladder. The coaxial dilator was removed and a 5 Somali end hole catheter (Kabbage) was advanced over the wire with the end hole in the bladder. The catheter was sutured to the skin with 2-0 Prolene. A sterile dressing was applied. IMPRESSION: 1. Ultrasound and fluoroscopic guided attempts to access the renal collecting system through the calyceal diverticulum were unsuccessful. 2. Technically challenging ultrasound and fluoroscopic guided right superior pole calyx nephro ureterostomy catheter for subsequent PCNL. The access is between the 11th and 12th ribs. Signed by: Radhames Romero 07/30/2024 12:28 PM Dictation workstation: [id number] [facility] PT Coag (PPP) [Time]on 07-29 INR Coag (PPP) [Relative time] 0.9 {INR} 0.9 - 1.1 [facility] Interpretation and review of laboratory results [facility] INR Coag (PPP) [Relative time] 0.9 Normal 0.9-1.1 [facility] Comment on above: Performed By: #### 5 902-2 #### CHARISMA AVILES ([id number]) [facility] ([facility]) [address] [place] [address] Protime-INRon 07-29-2024 PT Coag (PPP) [Time] 9.8 s [facility] US GUIDED ABSCESS FLUID MARCELLO ECTION DRAINAGEon 07-29-2024 US GUIDED ABSCESS FLUID COLLECTION DRAINAGE Interpreted By: Radhames Romero, STUDY: IR NEPHROURETERAL PLACEMENT; 07/29/2024 12:14 pm INDICATION: Signs/Symptoms:KIDNEY STONE. COMPARISON: None. ACCESSION NUMBER(S): [id number] ORDERING CLINICIAN: SOFIE DURBIN TECHNIQUE: COLOR SEPARATION PHOTOGRAPHER: Radhames Romero MD CONSENT: The patient was informed of the nature of the proposed procedure. The purposes, alternatives, risks, and benefits were explained and discussed. All questions were answered and consent was obtained. RADIATION EXPOSURE: Dose: 570 mGy SEDATION: Moderate conscious intravenous sedation services (supervision of administration, induction, and maintenance) were provided by the physician performing the procedure with intravenous fentanyl and versed. Total intra-service sedation time from 9964-9686 hours (68 minutes). The physician was assisted by an independent trained observer, an interventional radiology nurse, in the continuous monitoring of the patient level of consciousness and physiologic status. MEDICATION/CONTRAST: 20 mL Omnipaque 350 TIME OUT: A time out was performed immediately prior to the procedure start with interventional team, correctly identifying the patient using multiple identifiers and ensuring the appropriate procedure and anatomy (including laterality, if applicable) were identified. The procedure consent form and all relevant laboratory and imaging tests were reviewed. The need for antibiotic administration or patient or procedure specific safety precautions or equipment was reviewed. COMPLICATIONS: None immediate FINDINGS: The patient was placed in the prone position on the angiography table. The right flank was prepped and draped in a sterile fashion. Utilizing sonographic and fluoroscopic guidance, a 22 gauge needle was introduced into a posterior, stone containing, calyceal diverticulum. I was able to advanced the 0.018 inch wire into the diverticulum after confirming the location with sonography. The 0.018 inch wire would not pass through the stenose infundibulum into the renal collecting system. I advanced a ST microcatheter over a 0.018 inch micro Glidewire in an attempt to find the outlet, but this was unsuccessful as well. Next under direct sonographic guidance I accessed the visible upper pole pole calyx. The stylet was withdrawn and a small amount of contrast was injected to confirm positioning of the needle tip. An 0.018 wire was advanced into the collecting and negotiated into the renal pelvis and proximal ureter under fluoroscopic guidance. The needle was removed over the wire and a 5 Somali coaxial dilator was placed over the wire. The inner dilator and wire were removed. A small amount of contrast was injected confirming location of the catheter. This demonstrates stones within the system, but no hydronephrosis. Through the catheter a 0.035 wire was advanced to the urinary bladder. The coaxial dilator was removed and a 5 Somali end hole catheter (Kabbage) was advanced over the wire with the end hole in the bladder. The catheter was sutured to the skin with 2-0 Prolene. A sterile dressing was applied. IMPRESSION: 1. Ultrasound and fluoroscopic guided attempts to access the renal collecting system through the calyceal diverticulum were unsuccessful. 2. Technically challenging ultrasound and fluoroscopic guided right superior pole calyx nephro ureterostomy catheter for subsequent PCNL. The access is between the 11th and 12th ribs. Signed by: Radhames Romero 07/30/2024 12:28 PM Dictation workstation: [id number] [facility] Comment on above: Order Comment: OVER is reported when the result is greater than the clinically reportable range. XR tomography Unspecified giacomo dy regionon 07-29-2024 These images are not reportable by radiology and will not be interpreted by Radiologists. IMAGING ECG 12 leadOrdered By: Geremias Orozco on 07-28-2024 Atrial Rate 72 BPM [facility] Work Phone: P Selmer 42 degrees [facility] Work Phone: P Offset 186 ms [facility] Work Phone: P Onset 139 ms [facility] Work Phone: OK Interval 136 ms [facility] Work Phone: Q Onset 207 ms [facility] Work Phone: QRS Count 11 beats [facility] Work Phone: QRS Duration 108 ms [facility] Work Phone: QT Interval 410 ms [facility] Work Phone: QTC Calculation(Bazett) 448 ms [facility] Work Phone: QTC Fredericia 435 ms [facility] Work Phone: R Selmer -31 degrees [facility] Work Phone: T Selmer 64 degrees [facility] Work Phone: T Offset 412 ms [facility] Work Phone: Ventricular Rate 72 BPM [facility] Work Phone: [facility] Work Phone: ECG 12 leadon 07-28-2024 Normal sinus rhythm Left axis deviation Septal infarct , age undetermined Abnormal ECG When compared with ECG of 15-DEC-2020 13:21, Septal infarct is now Present Confirmed by Geremias Orozco ([id number]) on 07/28/2024 12:32:46 PM MUSE Geremias Orozco MD - 07/28/2024 Normal sinus rhythm Left axis deviation Septal infarct , age undetermined Abnormal ECG When compared with ECG of 15-DEC-2020 13:21, Septal infarct is now Present Confirmed by Geremias Orozco ([id number]) on 07/28/2024 12:32:46 PM [facility] Work Phone: Bacteria identifiedon 2024 Bacteria identified Cx Nom (U) Test: Urine Culture Specimen Source: Clean Catch/Voided Specimen Type: Urine Specimen Date: 07/19/202450 Result Date: 07/20/20242109 Result Status: Final result Abnormal: No Resulting Lab: [facility] [id number] [place] [address] CULTURE Clinically insignificant growth based on current clinical standards. Normal [facility] Comment on above: Performed By: #### 6 30-4 #### MELCHOR Page ([id number]) [facility] ([facility]) [address] [place] [address] CBC panel Auto (Bld)on 07-19 Erythrocyte distribution width (RBC) [Ratio] 12.5 % 11.5 - 14.5 % [facility] Hematocrit (Bld) [Volume fraction] 46.1 % 41.0 - 52.0 % [facility] Hemoglobin (Bld) [Mass/Vol] 15.6 g/dL 13.5 - 17.5 g/dL [facility] Interpretation and review of laboratory results Normal [facility] MCH (RBC) [Entitic mass] 29.5 pg 26.0 - 34.0 pg [facility] MCHC (RBC) [Mass/Vol] 33.8 g/dL 32.0 - 36.0 g/dL [facility] MCV (RBC) [Entitic vol] 87 fL 80 - 100 fL [facility] Nucleated RBC/100 WBC (Bld) [Ratio] 0 % [facility] Platelets (Bld) [#/Vol] 241 10*3/uL [facility] RBC (Bld) [#/Vol] 5.29 10*6/uL [facility] WBC (Bld) [#/Vol] 5.5 10*3/uL [facility] Erythrocyte distribution width (RBC) [Ratio] 12.5 % Normal 11.5-14.5 [facility] Comment on above: Performed By: #### 5 8410-2 #### CHARISMA AVILES ([id number]) [facility] ([facility]) [address] [place] [address] Hematocrit (Bld) [Volume fraction] 46.1 % Normal 41.0-52.0 [facility] Comment on above: Performed By: #### 5 8410-2 #### CHARISMA AVILES ([id number]) [facility] ([facility]) [address] [place] [address] Hemoglobin (Bld) [Mass/Vol] 15.6 g/dL Normal 13.5-17.5 [facility] Comment on above: Performed By: #### 5 8410-2 #### CHARISMA AVILES ([id number]) [facility] ([facility]) [address] [place] [address] MCH (RBC) [Entitic mass] 29.5 pg Normal 26.0-34.0 [facility] Comment on above: Performed By: #### 5 8410-2 #### CHARISMA AVILES ([id number]) [facility] ([facility]) [id number] [place] [address] MCHC (RBC) [Mass/Vol] 33.8 g/dL Normal 32.0-36.0 [facility] Comment on above: Performed By: #### 5 8410-2 #### CHARISMA AVILES (50313) [facility] ([facility]) [id number] [place] [address] MCV (RBC) [Entitic vol] 87 fL Normal 80-100 [facility] Comment on above: Performed By: #### 5 8410-2 #### CHARISMA AVILES (49243) [facility] ([facility]) [address] [place] [address] Nucleated RBC/100 WBC (Bld) [Ratio] 0.0 /100 WBCs Normal 0.0-0.0 [facility] Comment on above: Performed By: #### 5 8410-2 #### CHARISMA AVILES ([id number]) [facility] ([facility]) [id number] [place] [address] Platelets (Bld) [#/Vol] 241 x10*3/uL Normal 150-450 [facility] Comment on above: Performed By: #### 5 8410-2 #### CHARISMA AVILES ([id number]) [facility] ([facility]) [address] [place] [address] RBC (Bld) [#/Vol] 5.29 x10*6/uL Normal 4.50-5.90 [facility] Comment on above: Performed By: #### 5 8410-2 #### CHARISMA AVILES ([id number]) [facility] ([facility]) [address] [place] [address] WBC (Bld) [#/Vol] 5.5 x10*3/uL Normal 4.4-11.3 [facility] Comment on above: Performed By: #### 5 8410-2 #### CHARISMA AVILES ([id number]) [facility] ([facility]) [address] [place] [id number] Comprehensive metabolic 2000 panelon 07-19-2024 Albumin BCP dye [Mass/Vol] 4.7 g/dL 3.4 - 5.0 g/dL [facility] ALP [Catalytic activity/Vol] 59 U/L 33 - 120 U/L [facility] ALT With P-5'-P [Catalytic activity/Vol] 76 U/L High 10 - 52 U/L [facility] Comment on above: Patients treated wit h Sulfasalazine may generate falsely decreased results for ALT. Anion gap [Moles/Vol] 17 mmol/L 10 - 20 mmol/L [facility] AST With P-5'-P [Catalytic activity/Vol] 64 U/L High 9 - 39 U/L [facility] Bilirubin [Mass/Vol] 1.1 mg/dL 0.0 - 1 .2 mg/dL [facility] Calcium [Mass/Vol] 10.1 mg/dL 8.6 - 10. 3 mg/dL [facility] Chloride [Moles/Vol] 99 mmol/L 98 - 10 7 mmol/L [facility] CO2 [Moles/Vol] 25 mmol/L 21 - 32 mmol/L [facility] Creatinine [Mass/Vol] 0.88 mg/dL 0.50 - 1.30 mg/dL [facility] eGFR - PINF [facility] Comment on above: Calculations of jeanette mated GFR are performed using the 2020 CKD-EPI Study Refit equation without the race variable for the IDMS-Traceable creatinine methods. https://jasn.asnjournals.org/content//ASN.7641231 988 Glucose [Mass/Vol] 209 mg/dL High 74 - 99 mg/dL [facility] Interpretation and review of laboratory results Abnormal [facility] Potassium [Moles/Vol] 4.4 mmol/L 3.5 - 5.3 mmol/L [facility] Protein [Mass/Vol] 7.6 g/dL 6.4 - 8.2 g/dL Un [facility] Sodium [Moles/Vol] 137 mmol/L 136 - 145 mmol/L [facility] Urea nitrogen [Mass/Vol] 19 mg/dL 6 - 23 mg/dL [facility] Albumin BCP dye [Mass/Vol] 4.7 g/dL Normal 3.4-5.0 [facility] Comment on above: Performed By: #### 2 4323-8 #### CHARISMA AVILES ([id number]) [facility] ([facility]) [address] [place] [address] ALP [Catalytic activity/Vol] 59 U/L Normal 33-120 [facility] Comment on above: Performed By: #### 2 4323-8 #### CHARISMA AVILES ([id number]) [facility] ([facility]) [address] [place] [address] ALT With P-5'-P [Catalytic activity/Vol] 76 U/L High 10-52 [facility] Comment on above: Result Comment: Latricia ents treated with Sulfasalazine may generate falsely decreased results for ALT. Performed By: #### 2 4323-8 #### CHARISMA AVILES ([id number]) [facility] ([facility]) [address] [place] [address] Anion gap [Moles/Vol] 17 mmol/L Normal 10-20 [facility] Comment on above: Performed By: #### 2 4323-8 #### CHARISMA AVILES ([id number]) [facility] ([facility]) [address] [place] [address] AST With P-5'-P [Catalytic activity/Vol] 64 U/L High 9-39 [facility] Comment on above: Performed By: #### 2 4323-8 #### CHARISMA AVILES ([id number]) [facility] ([facility]) [address] [place] [address] Bilirubin [Mass/Vol] 1.1 mg/dL Normal 0.0-1.2 [facility] Comment on above: Performed By: #### 2 4323-8 #### CHARISMA AVILES ([id number]) [facility] ([facility]) [address] [place] [address] Calcium [Mass/Vol] 10.1 mg/dL Normal 8.6-10.3 [facility] Comment on above: Performed By: #### 2 4323-8 #### CHARISMA AVILES ([id number]) [facility] ([facility]) [address] [place] [address] Chloride [Moles/Vol] 99 mmol/L Normal 98-107 [facility] Comment on above: Performed By: #### 2 4323-8 #### CHARISMA AVILES ([id number]) [facility] ([facility]) [address] [place] [address] CO2 [Moles/Vol] 25 mmol/L Normal 21-32 [facility] Comment on above: Performed By: #### 2 4323-8 #### CHARISMA AVILES ([id number]) [facility] ([facility]) [address] [place] [address] Creatinine [Mass/Vol] 0.88 mg/dL Normal 0.50-1.30 [facility] Comment on above: Performed By: #### 2 4323-8 #### CHARISMA AVILES ([id number]) [facility] ([facility]) [address] [place] [address] GFR/1.73 sq M.predicted MDRD (S/P/Bld) [Vol rate/Area] mL/min/{1.73_m2} Normal >60 [facility] Comment on above: Result Comment: Calc ulations of estimated GFR are performed using the 2020 CKD-EPI Study Refit equation without the race variable for the IDMS-Traceable creatinine methods. https://jasn.asnjournals.org/content/early/ASN.6007851 988 Performed By: #### 2 4323-8 #### CHARISMA AVILES ([id number]) [facility] ([facility]) [address] [place] [address] Glucose [Mass/Vol] 209 mg/dL High 74-99 [facility] Comment on above: Performed By: #### 2 4323-8 #### CHARISMA AVILES ([id number]) [facility] [place]) [address] [place] [address] Potassium [Moles/Vol] 4.4 mmol/L Normal 3.5-5.3 [facility] Comment on above: Performed By: #### 2 4323-8 #### CHARISMA AVILES ([id number]) [facility] ([facility] [place] [address] [place] [address] Protein [Mass/Vol] 7.6 g/dL Normal 6.4-8.2 [facility] Comment on above: Performed By: #### 2 4323-8 #### CHARISMA AVILES ([id number]) [facility] ([facility] [place] [address] [place] [address] Sodium [Moles/Vol] 137 mmol/L Normal 136-145 [facility] Comment on above: Performed By: #### 2 4323-8 #### CHARISMA AVILES ([id number]) [facility] ([facility] [place] [address] [place] [address] Urea nitrogen [Mass/Vol] 19 mg/dL Normal 6-23 [facility] Comment on above: Performed By: #### 2 4323-8 #### CHARISMA AVILES ([id number]) [facility] ([facility] [place] [address] [place] [address] ECG 12-LEADon 07-19-2024 ECG 12-LEAD Ventricular Rate 72 Atrial Rate 72 P-R Interval 136 QRS Duration 108 Q-T Interval 410 QTC Calculation(Bazett) 448 P Selmer 42 R Selmer -31 T Selmer 64 QRS Count 11 Q Onset 207 P Onset 139 P Offset 186 T Offset 412 QTC Fredericia 435 Diagnosis Normal sinus rhythm Left axis deviation Septal infarct , age undetermined Abnormal ECG When compared with ECG of 15-DEC-2020 13:21, Septal infarct is now Present Confirmed by Geremias Orozco ([id number]) on 07/28/2024 12:32:46 PM Normal [facility] HbA1c (Bld) [Mass fraction]o n 07-19-2024 Average glucose Estimated from glycated hemoglobin (Bld) [Mass/Vol] 197 mg/dL Normal Not Established [facility] Comment on above: Order Comment: Diagn osis of Diabetes-Adults Non-Diabetic: < or = 5.6% Increased risk for developing diabetes: 5.7-6.4% Diagnostic of diabetes: > or = 6.5% Performed By: #### 4 548-4 #### MELCHOR Page ([id number]) [facility] ([facility]) [id number] [place] [address] Hemoglobin A1c/Hemoglobin.to napoleon 07-19-2024 HbA1c (Bld) [Mass fraction] 8.5 % High See comment [facility] Comment on above: Order Comment: Diagn osis of Diabetes-Adults Non-Diabetic: < or = 5.6% Increased risk for developing diabetes: 5.7-6.4% Diagnostic of diabetes: > or = 6.5% Performed By: #### 4 548-4 #### MELCHOR Page ([id number]) [facility] ([facility]) [id number] [place] [address] Urinalysis complete W Reflex Culture panel (U)on 07-19-2024 Appearance (U) Clear Normal Clear [facility] Comment on above: Order Comment: OVER is reported when the result is greater than the clinically reportable range. Performed By: #### 5 8077-9 #### CHARISMA AVILES ([id number]) [facility] ([facility] [place] [address] [place] [address] Bilirubin (U) [Mass/Vol] Negative Normal NEGATIVE [facility] Comment on above: Order Comment: OVER is reported when the result is greater than the clinically reportable range. Performed By: #### 5 8077-9 #### CHARISMA AVILES ([id number]) [facility] ([facility] [place] [address] [place] [address] Color (U) Light-Yellow Normal Light-Yellow, Yellow, Dark-Yellow [facility] Comment on above: Order Comment: OVER is reported when the result is greater than the clinically reportable range. Performed By: #### 5 8077-9 #### CHARISMA AVILES ([id number]) [facility] ([facility] [place] [address] [place] [address] Glucose Auto test strip (U) [Mass/Vol] OVER (4+) Abnormal Normal [facility] Comment on above: Order Comment: OVER is reported when the result is greater than the clinically reportable range. Performed By: #### 5 8077-9 #### CHARISMA AVILES ([id number]) [facility] ([facility] [place] [address] [place] [address] Ketones (U) [Mass/Vol] Negative Normal NEGATIVE [facility] Comment on above: Order Comment: OVER is reported when the result is greater than the clinically reportable range. Performed By: #### 5 8077-9 #### CHARISMA AVILES ([id number]) [facility] ([facility] [place] [address] [place] [address] Leukocyte esterase Auto test strip Ql (U) 75 Azra/uL Abnormal NEGATIVE [facility] Comment on above: Order Comment: OVER is reported when the result is greater than the clinically reportable range. Performed By: #### 5 8077-9 #### CHARISMA AVILES ([id number]) [facility] ([facility] [place]) [id number] [place] [address] Nitrite Auto test strip Ql (U) Negative Normal NEGATIVE [facility] Comment on above: Order Comment: OVER is reported when the result is greater than the clinically reportable range. Performed By: #### 5 8077-9 #### CHARISMA AVILES ([id number]) [facility] ([facility] [place] [address] [place] [address] pH (U) 6.0 [pH] Normal 5.0, 5.5, 6.0, 6.5, 7.0, 7.5, 8.0 [facility] Comment on above: Order Comment: OVER is reported when the result is greater than the clinically reportable range. Performed By: #### 5 8077-9 #### CHARISMA AVILES ([id number]) [facility] ([facility] [place] [address] [place] [address] Protein (U) [Mass/Vol] 30 (1+) Abnormal NEGATIVE, 10 (TRACE), 20 (TRACE) [facility] Comment on above: Order Comment: OVER is reported when the result is greater than the clinically reportable range. Performed By: #### 5 8077-9 #### CHARISMA AVILES ([id number]) [facility] ([facility] [place] [address] [place] [address] RBC (U) [#/Vol] 1.0 (3+) Abnormal NEGATIVE [facility] Comment on above: Order Comment: OVER is reported when the result is greater than the clinically reportable range. Performed By: #### 5 8077-9 #### CHARISMA AVILES ([id number]) [facility] ([facility] [place] [address] [place] [address] Specific gravity (U) [Rel density] 1.023 Normal 1.005-1.035 [facility] Comment on above: Order Comment: OVER is reported when the result is greater than the clinically reportable range. Performed By: #### 5 8077-9 #### CHARISMA AVILES ([id number]) [facility] ([facility] [place]) [id number] [place] [address] Urobilinogen (U) [Mass/Vol] Normal Normal Normal [facility] Comment on above: Order Comment: OVER is reported when the result is greater than the clinically reportable range. Performed By: #### 5 8077-9 #### CHARISMA AVILES ([id number]) [facility] ([facility] [place] [id number] [place] [address] Urinalysis microscopic panel Auto Ql (U)on 07-19-2024 Epithelial cells.squamous Auto (Urine sed) [#/Area] 1-9 (SPARSE) Normal Reference range not established. [facility] Comment on above: Performed By: #### 5 3315-8 #### CHARISMA AVILES ([id number]) [facility] ([facility] [place] [address] [place] [address] Mucus Auto (Urine sed) [#/Area] FEW Normal Reference range not established. [facility] Comment on above: Performed By: #### 5 3315-8 #### CHARISMA AVILES ([id number]) [facility] ([facility] [place] [id number] [place] [address] RBC Auto (Urine sed) [#/Area] >20 Abnormal NONE, 1-2, 3-5 [facility] Comment on above: Performed By: #### 5 3315-8 #### CHARISMA AVILES ([id number]) [facility] ([facility] [place]) [id number] [place] [address] WBC Auto (Urine sed) [#/Area] 21-50 Abnormal 1-5, NONE [facility] Comment on above: Performed By: #### 5 3315-8 #### CHARISMA AVILES ([id number]) [facility] ([facility] [place] [address] [place] [address] Ambulatory Visit Summaryon 0 05-24-2024 Ambulatory Visit Summary Ambulatory Visit Summary JERRY WILSON DOB:1970 Visit Date:05/24/2024 Ambulatory Visit Instructions Your Diagnosis Kidney stones Gross hematuria Right flank pain BPH with obstruction/lower urinary tract symptoms Prostate cancer screening Frequent UTI Tests Performed CT Abdomen/Pelvis w/o Contrast -- Results Pending -- Please visit your patient portal for your results or contact your primary care physician. Your Care Team Attending Physician - Alex PANG MD Primary Care Physician - Doron Zuñiga MD This Is Your Medications List tamsulosin (Flomax 0.4 mg Cap) Contact prescribing physician if questions or concerns fenofibrate (fenofibrate 160 mg oral tablet) irbesartan (irbesartan 150 mg Tab) metformin (metformin 500 mg Tab) metoprolol (metoprolol tartrate 100 mg Tab) oxaprozin (oxaprozin 600 mg Tab) paroxetine (paroxetine 40 mg Tab) Procedures Performed Colonoscopy (04/09/2023), Arthroscopy of shoulder, Fusion of lumbar spine, Fusion of lumbar spine, Repair of left inguinal hernia, Repair of meniscus, Repair of right inguinal hernia. Discharge Vitals Heart Rate (Peripheral) 80 Respiratory Rate 16 Blood Pressure 152/88 Height 180 cm Height 71 in Weight 149.8 kg Weight 330.252 lb BMI 46.23 What to do next You Need to Schedule the Following Appointments Follow Up with POLY ISIDRO, Alex Cohen, SARIAH When: Where: [address] [place] [address] [place], [place] [id number]- Medications What How Much When Instructions Unchanged tamsulosin (Flomax 0.4 mg Cap) 2 Capsules By Mouth Every day Duration: 30 Days Unchanged fenofibrate (fenofibrate 160 mg oral tablet) 1 Tablets By Mouth Every day Contact prescribing physician if questions or concerns Unchanged irbesartan (irbesartan 150 mg Tab) By Mouth Every day Contact prescribing physician if questions or concerns Unchanged metformin (metformin 500 mg Tab) 1 Tablets By Mouth 2 [...] symptoms Diabetes ED (erectile dysfunction) Frequent UTI Gross hematuria Hepatic steatosis Hepatomegaly History of nephrolithiasis HTN (hypertension) Hypercholesteremia Hyperplastic rectal polyp Interstitial lung disease Kidney stones LLQ abdominal pain Mediastinal lymphadenopathy Mediastinal lymphadenopathy Morbid obesity Obstructive sleep apnea syndrome Prostate cancer screening Rectal bleeding Right flank pain Sarcoidosis Sigmoid diverticulosis Vitamin D deficiency Patient Survey You may receive a survey via text or e-mail asking about your office visit. Please share your experience with us by completing your survey. We appreciate your feedback and thank you for choosing us for your care. [employer] Laser Therapy for Kidney Stones Laser therapy [...] pee. Tell a health care provider about: ??? Any allergies you have. ??? All medicines you are taking, including vitamins, herbs, eye drops, creams, and gsln-[id number] medicines. ??? Any problems you or family members have had with anesthesia. ??? Any bleeding problems you have. ??? Any surgeries you have had. ??? Any medical conditions you have. ??? Whether you are or may be . What are the risks? Your health care provider will talk with you about risks. These may include: ??? Infection. ??? Bleeding. ??? Allergic reactions to medicines. ??? Damage to: ? The part of your body that drains pee (urine) from the bladder (urethra). ? The bladder. ? The tube that connects the bladder to the kidneys (ureter). ??? Urinary tract infection (UTI). ??? Urethral stricture. This is when the urethra is narrowed by scarring. ??? Trouble peeing. ??? Blockage of the kidney. This may be caused by a piece of (more content not included)... Normal [facility] Urology Office/Clinic Noteon 05-24-2024 Urology Office/Clinic Note Urology Office/Clinic Note Chief Complaint 2 month follow up HPI Staff 2 mo f/u to discuss renal stone procedures. Need UA due to hematuria on prior! KUB & KEVYN 04/02/24 [facility]. PSA: 03/30/24 - 1.2 Prior OV: increased Flomax to 0.8 mg qd. Other Dx: frequent UTI, BPH w/LUTS, microhematuria, DM, ED, prostate ca screening. *no other uro meds. Pt states he has pain on right side flank pain, and he vomited on yesterday Dysuria: yes pain and burning Incomplete bladder emptying: denies Hematuria: yes seen blood on 05/23/24, UA shows LARGE Frequency: severe intermittent Urgency: moderate intermittent Nocturia: 4x Stream: yes weak stream Leaking: denies Post void dripping: sometimes Wearing pads/ Depends: denies Urge incontinence: denies Stress incontinence: denies Incontinence without Sensory Awareness: denies Abdominal pain: yes right sided pain Flank pain: yes right sided pain Sexual complaints: denies History of Present Illness Tests reviewed: UA, KUB, KEVYN I have reviewed the previous health record information and history for this patient from ISABELLA Evans. I have reviewed and verified the staff HPI to be accurate for this encounter. Review of Systems PHQ Score Initial Depression Screen Score: 2 SCORE ROS - Provider Constitutional: denies weight loss, denies hot flashes. Eyes: denies eye problems. Gastrointestinal: denies nausea, denies vomiting. Cardiovascular: denies chest pain or angina. Integumentary: no dryness Musculoskeletal: denies musculoskeletal symptoms. ENMT: denies otolaryngeal symptoms. Respiratory: no shortness of breath. Heme/Lymph: denies easy bleeding tendency, denies easy bruising tendency. Psychiatric: no confusion, no anxiety. Genitourinary: See HPI. Physical Exam Vitals & Measurements HR: 80(Peripheral) RR: 16 BP: 152/88 HT: 71 in HT: 180 cm WT: 149.8 kg WT: 330.252 lb BMI: 46.23 General Appearance: alert, no distress, well nourished, well developed male. Assessment/Plan Last seen by MARIA ISABEL. 1. Kidney stones (N20.0: Calculus of kidney) KUB 04/02/24 [facility] - Several R renal stones, largest 16 mm. Increased from prior study. No L sided stones. KEVYN 04/02/24 [facility] - At least two R renal stones 15 x 13 x 7 mm and 20 x 14 x 11 mm. L renal stones 7 x 6 x 4 mm. No hydro. Reviewed imaging with pt no obstruction in Nov. Greater stone burden on R. However has developed sxs since. Had N/V last night. Also had gross hematuria yesterday. These sxs could indicate stone potentially moved into ureter. Recommended CT to eval if pt is passing stone. Shares he has been dealing with renal stones, gross hematuria, and UTI for 2 yrs. Again, sxs and hx suspicious for obstruction. Given degree of stone burden, pt may be a better candidate for PCNL. Follow up pending CT below or sooner if needed. Pt understands and agrees with plan. -Schedule stat CT AP wo con. -Pt to call or go to the ER if they were to experience fever, shaking, chills, uncontrolled nausea, vomiting, or pain. 2. Gross hematuria (R31.0: Gross hematuria) See #1. UA shows large blood and trace leuks. Pt will definitely need cysto. Could be done at same time as stone procedure if he has one done. 3. Right flank pain (R10.9: Unspecified abdominal pain) See #1. Intermittent. 4. BPH with obstruction/lower urinary tract symptoms (N40.1: Benign prostatic hyperplasia with lower urinary tract symptoms) PCP started on Flomax 03/03/24. [1] IPSS 21 (23). Increased Flomax to 0.8 mg qd at prior OV. 5. Prostate cancer screening (Z12.5: Encounter for screening for malignant neoplasm of prostate) PSA: 03/30/24 - 1.2 Wnl. Will cont to monitor. 6. Frequent UTI (N39.0: Urinary tract infection, site not specified) 01/01/23 - Cipro x 10d 01/27/23 - Cipro x 10d 03/31/23 - Amox x 7d 04/09/23 - Amox x 7d 03/04/24 - Cipro x 10d -Contact our office next time feels infection sx. Consider prostatitis tx. Overall this patient was evaluated with a previous renal ultrasound which demonstrated a very large stone burden on the right side with at least a 2 cm and another 1.5 cm stone in the right kidney as well as smaller other stones. I feel that perhaps a PCNL approach may be preferable to ESWL and that regard. Referral to [facility]/ urology where they have interventional radiologist would be recommended. In the interim however due to his ongoing intermittent flank pain, nausea, and gross hematuria, recommended CT urogram, both to rule out current obstruction and to provide a better study than an ultrasound. Recommendation also made that at some point in the near future he needs cystoscopic evaluation as well which may be performed during the process of treating his stones to rule out any lower urinary tract pathology. He states the hematuria has been ongoing for 2 to 3 years or so as well as ongoing intermittent pain. I did remind him that his renal ultrasound demonstrated no evidence of obstruction even though the stones we (more content not included)... Normal [facility] Comment on above: Result Comment: Elec tronically Signed By: Arleen Barahona P\.br\Date and Time Signed: 05/24/24 10:34 EST\.br\Electronically Co-Signed By: Alex PANG MD P\.br\Date and Time Co-Signed: 07/01/24 15:12 EST CHEMISTRYOrdered By: Patience Villarreal on 03-30-2024 HbA1c (Bld) [Mass fraction] 8.1 % High <=5.9% [facility] ChemAutoSS CHEMISTRYOrdered By: SYSTEM SYSTEM on 03-30-2024 [...] used for this result was chemiluminescence using [employer]'s Access Hybritech PSA reagent. [id number] 03-30-2024 HbA1c (Bld) [Mass fraction] 8.1 % High <=5.9 [facility] Comment on above: Performed By: #### 7 [id number] #### [facility] [address] [place] [address] PSA Totalon 03-30-2024 Prostate specific Ag [Mass/Vol] 1.2 ng/mL Normal 0.1-3.5 [facility] Comment on above: Result Comment: The concentration of PSA determined by different manufacturers can vary due to differences in assay methods and reagent specificity. Values obtained from different assay methods cannot be used interchangeably. The methodology used for this result was chemiluminescence using [employer]'s Access Hybritech PSA reagent. Performed By: #### 1 [id number] #### [facility] [address] [place] [address] CULTURE URINEon 09-15-2022 CULTURE URINE Isolate 1 [...] Trimethoprim/Sulfamet hoxazole <=20 S F Normal [facility] Comment on above: Performed By: #### L IPA, CMP, CK, HSTROPN #### [facility] [address] [place] [address] [address] Frank Nugent CBC AUTO DIFFon 09-13-2022 BASO # 0.0 103/ul Normal 0.0-0.1 [facility] Comment on above: Performed By: #### C BC #### [facility] [address] [place], [place] [address] Dr. Frank Nugent Basophils/100 WBC (Bld) 0.2 % Normal 0.2-2.0 [facility] Comment on above: Performed By: #### C BC #### [facility] [address] [place], [place] [address] Dr. Frank Nugent EO # 0.0 103/ul Normal 0.0-0.7 [facility] Comment on above: Performed By: #### C BC #### [facility] [address] [place] [address] Dr. Frank Nugent Eosinophils/100 WBC (Bld) 0.1 % Critically low 0.9-7.0 [facility] Comment on above: Performed By: #### C BC #### [facility] [address] [place] [address] Dr. Frank Nugent Erythrocyte distribution width (RBC) [Ratio] 12.7 % Normal 11.0-15.0 [facility] Comment on above: Performed By: #### C BC #### [facility] [address] [place] [address] Dr. Frank Nugent Hematocrit (Bld) [Volume fraction] 41.3 % Critically low 42.0-54.0 [facility] Comment on above: Performed By: #### C BC #### [facility] [address] [place] [address] Dr. Frank Nugent Hemoglobin (Bld) [Mass/Vol] 14.0 g/dL Normal 14.0-18.0 [facility] Comment on above: Performed By: #### C BC #### [facility] [address] [place] [address] Dr. Frank Nugent IG # 0.04 10e3/ul Critically high 0.00-0.03 [facility] Comment on above: Performed By: #### C BC #### [facility] [address] [place] [address] Dr. Frank Nugent IG % 0.3 % Normal 0.0-0.5 [facility] Comment on above: Performed By: #### C BC #### [facility] [address] [place] [address] Dr. Frank Nugent LYMPH # 1.0 103/ul Critically low 1.2-3.8 [facility] Comment on above: Performed By: #### C BC #### [facility] [address] [place] [address] Dr. Frank Nugent Lymphocytes/100 WBC (Bld) 6.9 % Critically low 20.5-60.0 [facility] Comment on above: Performed By: #### C BC #### [facility] [address] [place] [address] Dr. Frank Nugent MANUAL DIFF REQ NO Normal [facility] Comment on above: Performed By: #### C BC #### [facility] [address] [place] [address] Dr. Frank Nugent MCH (RBC) [Entitic mass] 29.5 pg Normal 25.9-34.0 [facility] Comment on above: Performed By: #### C BC #### [facility] [address] [place] [address] Dr. Frank Nugent MCHC (RBC) [Mass/Vol] 33.9 g/dL Normal 29.9-35.2 [facility] Comment on above: Performed By: #### C BC #### [facility] [address] [place] [address] Dr. Frank Nugent MCV (RBC) [Entitic vol] 87.1 fL Normal 80.0-94.0 [facility] Comment on above: Performed By: #### C BC #### [facility] [address] [place] [address] Dr. Frank Nugent MONO # 1.3 103/ul Critically high 0.3-0.8 [facility] Comment on above: Performed By: #### C BC #### [facility] [address] [place] [address] Dr. Frank Nugent Monocytes/100 WBC (Bld) 9.0 % Normal 1.7-12.0 [facility] Comment on above: Performed By: #### C BC #### [facility] [address] [place] [address] Dr. Frank Nugent NEUT # 12.2 103/ul Critically high 1.4-6.5 [facility] Comment on above: Performed By: #### C BC #### [facility] [address] [place] [address] Dr. Frank Nugent Neutrophils/100 WBC (Bld) 83.5 % Critically high 43.0-75.0 [facility] Comment on above: Performed By: #### C BC #### [facility] [address] [address] [address] Frank Nugent Platelet mean volume (Bld) [Entitic vol] 11.5 fL Normal 9.5-13.5 [facility] Comment on above: Performed By: #### C BC #### [facility] [address] [place] [address] [address] Frank Nugent PLT 216 103/ul Normal 150-450 [facility] Comment on above: Performed By: #### C BC #### [facility] [address] [place] [address] Dr. Frank Nugent RBC 4.74 106/ul Normal 4.70-6.10 [facility] Comment on above: Performed By: #### C BC #### [facility] [address] [place] [address] Dr. Frank Nugent WBC 14.6 103/ul Critically high 4.0-11.0 [facility] Comment on above: Performed By: #### C BC #### [facility] [address] [place] [address] Dr. Frank Nugent CPKon 09-13-2022 CK [Catalytic activity/Vol] 260 U/L Normal 39-308 [facility] Comment on above: Performed By: #### L IPA, CMP, CK, HSTROPN #### [facility] [address] [place] [address] Dr. Frank Nugent CULTURE BLOODon 09-13-2022 Microscopic examination of blood, culture Culture Observations: NO GROWTH AT 5 DAYS. Normal [facility] Comment on above: Performed By: #### L IPA, CMP, CK, HSTROPN #### [facility] [address] [place] [address] Dr. Frank Nugent Microscopic examination of blood, culture Culture Observations: NO GROWTH AT 5 DAYS. Normal [facility] Comment on above: Performed By: #### L IPA, CMP, CK, HSTROPN #### [facility] [address] [place] [address] Dr. Frank Nugent Covid-19 PCR (CVDTB)on SARS-CoV-2 (COVID-19) RNA JABIER+probe Ql (Unsp spec) Not detected Normal NOT DETECTED [facility] Comment on above: Result Comment: This test is not yet approved or cleared by the [place] FDA. When there are no FDA-approved or cleared tests available, and other criteria are met, FDA can make tests available under an emergency access mechanism called an Emergency Use Authorization (EUA). The EUA for this test is supported by the Leak Inspector of Health and Human Service's (HHS's) declaration [...] #### L IPA, CMP, CK, HSTROPN #### [facility] [address] [place] [address] Dr. Frank Nugent ER URINE PROFILEon 3 Bilirubin Ql (U) Negative Normal NEGATIVE [facility] Comment on above: Performed By: #### L IPA, CMP, CK, HSTROPN #### [facility] [address] [place] [address] Dr. Frank Nugent Clarity (U) CLEAR Normal CLEAR [facility] Comment on above: Performed By: #### L IPA, CMP, CK, HSTROPN #### [facility] [address] [place] [address] Dr. Frank Nugent Color (U) YELLOW Normal YELLOW [facility] Comment on above: Performed By: #### L IPA, CMP, CK, HSTROPN #### [facility] [address] [place] [address] Dr. Frank Nugent ERUPALOMA A micrscopic examination will be performed if indicated. Normal [facility] Comment on above: Performed By: #### L IPA, CMP, CK, HSTROPN #### [facility] [address] [address] [address] Frank Nugent Glucose Ql (U) 250 mg/dl Abnormal NEGATIVE [facility] Comment on above: Performed By: #### L IPA, CMP, CK, HSTROPN #### [facility] [address] [address] [address] Frank Nugent Hemoglobin Ql (U) SMALL Abnormal NEGATIVE [facility] Comment on above: Performed By: #### L IPA, CMP, CK, HSTROPN #### [facility] [address] [address] [address] Frank Nugent Ketones Ql (U) Negative Normal NEGATIVE [facility] Comment on above: Performed By: #### L IPA, CMP, CK, HSTROPN #### [facility] [address] [address] [address] Frank Nugent LEUKOCYTES TRACE Abnormal NEGATIVE [facility] Comment on above: Performed By: #### L IPA, CMP, CK, HSTROPN #### [facility] [address] [address] [address] Frank Nugent Nitrite Ql (U) Negative Normal NEGATIVE [facility] Comment on above: Performed By: #### L IPA, CMP, CK, HSTROPN #### [facility] [address] [address] [address] Frank Nugent pH (U) 5.5 [pH] Normal 5-9 [facility] Comment on above: Performed By: #### L IPA, CMP, CK, HSTROPN #### [facility] [address] [address] [address] Frank Nugent SPEC GRAVITY 1.020 Normal 1.005-<=1.025 [facility] Comment on above: Performed By: #### L IPA, CMP, CK, HSTROPN #### [facility] [address] [address] [address] Frank Nugent UA PROTEIN TRACE Normal NEGATIVE/ TRACE [facility] Comment on above: Performed By: #### L IPA, CMP, CK, HSTROPN #### [facility] [address] [place] [address] Dr. Frank Nugent UR MICRO IND INDICATED Normal [facility] Comment on above: Performed By: #### L IPA, CMP, CK, HSTROPN #### [facility] [address] [place] [address] Dr. Frank Nugent Urobilinogen Qn (U) 0.2 {Moni'U}/dL Normal 0.2 - 1. 0 [facility] Comment on above: Performed By: #### L IPA, CMP, CK, HSTROPN #### [facility] [address] [place] [address] Dr. Frank Nugent LACTATE/LACTIC ACIDon 2022 Lactate [Moles/Vol] 2.1 mmol/L Critically high 0.4-2.0 [facility] Comment on above: Performed By: #### L ACT #### [facility] [address] [place] [address] Dr. Frank Nugent LIPASEon 09-13-2022 Lipase [Catalytic activity/Vol] 116.0 U/L Normal 73.0-393.0 [facility] Comment on above: Performed By: #### L IPA, CMP, CK, HSTROPN #### [facility] [address] [place] [address] Dr. Frank Nugent PROF 14(COMP METB)on 023 Albumin [Mass/Vol] 4.0 g/dL Normal 3.4-5.0 [facility] Comment on above: Performed By: #### L IPA, CMP, CK, HSTROPN #### [facility] [address] [place] [address] Dr. Frank Nugent Albumin/Globulin [Mass ratio] 1.0 {ratio} Normal [facility] Comment on above: Performed By: #### L IPA, CMP, CK, HSTROPN #### [facility] [address] [place] [address] Dr. Frank Nugent ALP [Catalytic activity/Vol] 70 U/L Normal 46-116 [facility] Comment on above: Performed By: #### L IPA, CMP, CK, HSTROPN #### [facility] [address] [place] [address] Dr. Frank Nugent ALT [Catalytic activity/Vol] 55 U/L Normal 16-63 [facility] Comment on above: Performed By: #### L IPA, CMP, CK, HSTROPN #### [facility] [address] [address] [address] Frank Nugent Anion gap [Moles/Vol] 14.0 mmol/L Normal [facility] Comment on above: Performed By: #### L IPA, CMP, CK, HSTROPN #### [facility] [address] [place] [address] Dr. Frank Nugent AST [Catalytic activity/Vol] 28 U/L Normal 15-37 [facility] Comment on above: Performed By: #### L IPA, CMP, CK, HSTROPN #### [facility] [address] [place] [address] Dr. Frank Nugent Bilirubin [Mass/Vol] 2.1 mg/dL Critically high 0.2-1.0 [facility] Comment on above: Performed By: #### L IPA, CMP, CK, HSTROPN #### [facility] [address] [place] [address] Dr. Frank Nugent Calcium [Mass/Vol] 9.3 mg/dL Normal 8.5-10.1 [facility] Comment on above: Performed By: #### L IPA, CMP, CK, HSTROPN #### [facility] [address] [place] [address] Dr. Frank Nugent Chloride [Moles/Vol] 100 mmol/L Normal 98-107 [facility] Comment on above: Performed By: #### L IPA, CMP, CK, HSTROPN #### [facility] [address] [place] [address] Dr. Frank Nugent CO2 [Moles/Vol] 24.7 mmol/L Normal 21.0-32.0 [facility] Comment on above: Performed By: #### L IPA, CMP, CK, HSTROPN #### [facility] [address] [address] [address] Frank Nugent Creatinine [Mass/Vol] 1.31 mg/dL Critically high 0.70-1.30 [facility] Comment on above: Performed By: #### L IPA, CMP, CK, HSTROPN #### [facility] [address] [place] [address] Dr. Frank Nugent EGFR-AF KOSOVAN >60 Normal >=60 [facility] Comment on above: Performed By: #### L IPA, CMP, CK, HSTROPN #### [facility] [address] [place] [address] Dr. Frank Nugent EGFR-NON AF KOSOVAN 58 mL/min/1.73m2 Critically low >=60 [facility] Comment on above: Performed By: #### L IPA, CMP, CK, HSTROPN #### [facility] [address] [place] [address] Dr. Frank Nugent Globulin (S) [Mass/Vol] 4.0 g/dL Normal [facility] Comment on above: Performed By: #### L IPA, CMP, CK, HSTROPN #### [facility] [address] [place] [address] Dr. Frank Nugent Glucose [Mass/Vol] 244 mg/dL Critically high 74-106 [facility] Comment on above: Performed By: #### L IPA, CMP, CK, HSTROPN #### [facility] [address] [place] [address] Dr. Frank Nugent Potassium [Moles/Vol] 3.7 mmol/L Normal 3.5-5.1 [facility] Comment on above: Performed By: #### L IPA, CMP, CK, HSTROPN #### [facility] [address] [place] [address] Dr. Frank Nugent Protein [Mass/Vol] 8.0 g/dL Normal 6.4-8.2 [facility] Comment on above: Performed By: #### L IPA, CMP, CK, HSTROPN #### [facility] [address] [address] [address] Frank Nugent Sodium [Moles/Vol] 135 mmol/L Critically low 136-145 [facility] Comment on above: Performed By: #### L IPA, CMP, CK, HSTROPN #### [facility] [address] [address] [address] Frank Nugent Urea nitrogen [Mass/Vol] 19.0 mg/dL Critically high 7.0-18.0 [facility] Comment on above: Performed By: #### L IPA, CMP, CK, HSTROPN #### [facility] [address] [place] [address] Dr. Frank Nugent Urea nitrogen/Creatinine [Mass ratio] 14.5 mg/mg Normal [facility] Comment on above: Performed By: #### L IPA, CMP, CK, HSTROPN #### [facility] [address] [place] [address] Dr. Frank Nugent PROTIMEon 09-13-2022 INR Coag (PPP) [Relative time] 0.97 {INR} Normal [facility] Comment on above: Performed By: #### L IPA, CMP, CK, HSTROPN #### [facility] [address] [place] [address] Dr. Frank Nugent INR GUIDELINES SEE BELOW Normal [facility] Comment on above: Result Comment: GHASSAN RED INR: 2.0 - 3.0 CONDITIONS NOT LISTED BELOW 2.5 - 3.5 FOR PROSTHETIC HEART VALVE REPLACEMENT 2.5 - 3.5 RECURRENT THROMBOSIS Performed By: #### L IPA, CMP, CK, HSTROPN #### [facility] [address] [place] [address] Dr. Frank Nugent PT Coag (PPP) [Time] 10.3 s Normal 9.0-11.6 [facility] Comment on above: Performed By: #### L IPA, CMP, CK, HSTROPN #### [facility] [address] [place] [address] Dr. Frank Nugent SYMPTOMATIC COVID-19 ANTIGEN on 09-13-2022 EUA Statement SEE BELOW Normal The [facility] Comment on above: Result Comment: [...] #### L IPA, CMP, CK, HSTROPN #### [facility] [address] [place] [address] Dr. Frank Nugent SARS-CoV-2 (COVID-19) RNA JABIER+probe Ql (Unsp spec) Negative Normal NEGATIVE [facility] Comment on above: Performed By: #### L IPA, CMP, CK, HSTROPN #### [facility] [address] [place] [address] Dr. Frank Nugent TROPONIN, HIGH SENSITIVITYon 09-13-2022 HSTROP 5.4 pg/mL Normal 4.0-76.1 [facility] Comment on above: Result Comment: CUT- OFF POINTS HAVE BEEN ESTABLISHED BASED ON THE FOURTH UNIVERSAL DEFINITIONS OF MYOCARDIAL INFARCTION. THE UPPER REFERENCE LIMIT (URL) OF TROPONIN, DEFINED THE 99TH PERCENTILE OF cTnI DISTRIBUTION IN A REFERENCE POPULATION, HAS BEEN CONFIRMED THE DECISION THRESHOLD FOR [place] DIAGNOSIS. Performed By: #### L IPA, CMP, CK, HSTROPN #### [facility] [address] [place] [address] Dr. Frank Nugent URINE MICROSCOPIC ONLYon BACTERIA SMALL Abnormal NONE SEEN [facility] Comment on above: Performed By: #### L IPA, CMP, CK, HSTROPN #### [facility] [address] [address] [address] Frank Nugent Bacteria identified Cx Nom (U) INDICATED Normal [facility] Comment on above: Performed By: #### L IPA, CMP, CK, HSTROPN #### [facility] [address] [address] [address] Frank Nugent CAST NONE SEEN Normal NONE SEEN [facility] Comment on above: Performed By: #### L IPA, CMP, CK, HSTROPN #### [facility] [address] [address] [address] Frank Nugent Crystals LM Nom (Urine sed) NONE SEEN Normal NONE SEEN [facility] Comment on above: Performed By: #### L IPA, CMP, CK, HSTROPN #### [facility] [address] [place] [address] Dr. Frank Nugent Epithelial cells LM Ql (Urine sed) FEW Abnormal NONE SEEN /RARE [facility] Comment on above: Performed By: #### L IPA, CMP, CK, HSTROPN #### [facility] [address] [place] [address] Dr. Frank Nugent MUCOUS NONE SEEN Normal NONE SEEN [facility] Comment on above: Performed By: #### L IPA, CMP, CK, HSTROPN #### [facility] [address] [place] [address] Dr. Frank Nugent RBC 2-5 Abnormal 0-2 [facility] Comment on above: Performed By: #### L IPA, CMP, CK, HSTROPN #### [facility] [address] [place] [address] Dr. Frank Nugent WBC 5-10 Abnormal NONE SEEN [facility] Comment on above: Performed By: #### L IPA, CMP, CK, HSTROPN #### [facility] [address] [place] [address] Dr. Frank Nugent XR CHEST 1 Von [...] YURY FERNANDEZ Date: 2022-09-13 13:36 Normal [facility] INSULINon 08-12-2022 Insulin 73.3 uIU/mL Critically high 2.6-24.9 [facility] Comment on above: Performed By: #### L IPA, CMP, CK, HSTROPN #### [facility] [address] [place] [address] Dr. Frank Nugent BNPon 08-10-2022 Natriuretic peptide B (Bld) [Mass/Vol] 48.0 pg/mL Normal <=900.0 [facility] Comment on above: Performed By: #### L IPA, CMP, CK, HSTROPN #### [facility] [address] [place] [address] Dr. Frank Nugent CBC AUTO DIFFon 08-10-2022 BASO # 0.0 103/ul Normal 0.0-0.1 [facility] Comment on above: Performed By: #### C BC #### [facility] [address] [place] [address] Dr. Frank Nugent Basophils/100 WBC (Bld) 0.3 % Normal 0.2-2.0 [facility] Comment on above: Performed By: #### C BC #### [facility] [address] [place] [address] Dr. Frank Nugent EO # 0.2 103/ul Normal 0.0-0.7 [facility] Comment on above: Performed By: #### C BC #### [facility] [address] [place] [address] Dr. Frank Nugent Eosinophils/100 WBC (Bld) 4.9 % Normal 0.9-7.0 [facility] Comment on above: Performed By: #### C BC #### [facility] [address] [place] [address] Dr. Frank Nugent Erythrocyte distribution width (RBC) [Ratio] 12.8 % Normal 11.0-15.0 [facility] Comment on above: Performed By: #### C BC #### [facility] [address] [place] [address] Dr. Frank Nugent Hematocrit (Bld) [Volume fraction] 43.8 % Normal 42.0-54.0 [facility] Comment on above: Performed By: #### C BC #### [facility] [address] [place] [address] Dr. Frank Nugent Hemoglobin (Bld) [Mass/Vol] 15.4 g/dL Normal 14.0-18.0 [facility] Comment on above: Performed By: #### C BC #### [facility] [address] [place] [address] Dr. Frank Nugent IG # 0.00 10e3/ul Normal 0.00-0.03 [facility] Comment on above: Performed By: #### C BC #### [facility] [address] [place] [address] Dr. Frank Nugent IG % 0.0 % Normal 0.0-0.5 [facility] Comment on above: Performed By: #### C BC #### [facility] [address] [place] [address] Dr. Frank Nugent LYMPH # 0.8 103/ul Critically low 1.2-3.8 [facility] Comment on above: Performed By: #### C BC #### [facility] [address] [place] [address] Dr. Frank Nugent Lymphocytes/100 WBC (Bld) 23.9 % Normal 20.5-60.0 [facility] Comment on above: Performed By: #### C BC #### [facility] [address] [place] [address] Dr. Frank Nugent MANUAL DIFF REQ NO Normal [facility] Comment on above: Performed By: #### C BC #### [facility] [address] [address] [address] Frank Nugent MCH (RBC) [Entitic mass] 30.0 pg Normal 25.9-34.0 [facility] Comment on above: Performed By: #### C BC #### [facility] [address] [address] [address] Frank Nugent MCHC (RBC) [Mass/Vol] 35.2 g/dL Normal 29.9-35.2 [facility] Comment on above: Performed By: #### C BC #### [facility] [address] [place] [address] Dr. Frank Nugent MCV (RBC) [Entitic vol] 85.2 fL Normal 80.0-94.0 [facility] Comment on above: Performed By: #### C BC #### [facility] [address] [place] [address] Dr. Frank Nugent MONO # 0.4 103/ul Normal 0.3-0.8 [facility] Comment on above: Performed By: #### C BC #### [facility] [address] [place] [address] Dr. Frank Nugent Monocytes/100 WBC (Bld) 12.8 % Critically high 1.7-12.0 [facility] Comment on above: Performed By: #### C BC #### [facility] [address] [place] [address] Dr. Frank Nugent NEUT # 1.9 103/ul Normal 1.4-6.5 [facility] Comment on above: Performed By: #### C BC #### [facility] [address] [place] [address] Dr. Frank Nugent Neutrophils/100 WBC (Bld) 58.1 % Normal 43.0-75.0 [facility] Comment on above: Performed By: #### C BC #### [facility] [address] [place] [address] Dr. Frank Nugent Platelet mean volume (Bld) [Entitic vol] 11.3 fL Normal 9.5-13.5 [facility] Comment on above: Performed By: #### C BC #### [facility] [address] [address] [address] Frank Nugent PLT 224 103/ul Normal 150-450 [facility] Comment on above: Performed By: #### C BC #### [facility] [address] [place] [address] Dr. Frank Nugent RBC 5.14 106/ul Normal 4.70-6.10 [facility] Comment on above: Performed By: #### C BC #### [facility] [address] [place] [address] Dr. Frank Nugent WBC 3.3 103/ul Critically low 4.0-11.0 [facility] Comment on above: Performed By: #### C BC #### [facility] [address] [place] [address] Dr. Frank Nugent FREE THYROXINE INDEX T7on FTI 2.63 Normal 1.30-4.50 [facility] Comment on above: Performed By: #### L IPA, CMP, CK, HSTROPN #### [facility] [address] [place] [address] Dr. Frank Nugent T3U 35.0 % Normal 33.0-40.0 [facility] Comment on above: Performed By: #### L IPA, CMP, CK, HSTROPN #### [facility] [address] [place] [address] Dr. Frank Nugent T4 [Mass/Vol] 7.50 ug/dL Normal 4.50-12.10 [facility] Comment on above: Performed By: #### L IPA, CMP, CK, HSTROPN #### [facility] [address] [place] [address] Dr. Frank Nugent GLYCOHEMOGLOBIN A1Con 2022 ADA RECOMMENDATION SEE BELOW Normal [facility] Comment on above: Result Comment: ADA RECOMMENDED LIMIT 4.0 - 6.0 ADA THERAPEUTIC TARGET < 7.0 ACTION SUGGESTED > 7.0 Performed By: #### A 1C #### [facility] [address] [address] [address] Frank Nugent Glucose [Mass/Vol] 169 mg/dL Normal [facility] Comment on above: Performed By: #### A 1C #### [facility] [address] [address] [address] Frank Nugent HbA1c (Bld) [Mass fraction] 7.5 % Critically high 4.5-6.2 [facility] Comment on above: Performed By: #### A 1C #### [facility] [address] [address] [address] Frank Nugent LIPID PROFILEon 08-10-2022 CHOL-HDL RATIO NORM SEE BELOW Normal [facility] Comment on above: Result Comment: 3.3 - 4.4 LOW RISK 4.4 - 7.1 AVERAGE RISK 7.1 - 11.0 MODERATE RISK >11.0 HIGH RISK Performed By: #### L IPA, CMP, CK, HSTROPN #### [facility] [address] [address] [address] Frank Nugent Cholesterol [Mass/Vol] 183 mg/dL Normal <=200 [facility] Comment on above: Performed By: #### L IPA, CMP, CK, HSTROPN #### [facility] [address] [address] [address] Frank Nugent Cholesterol in HDL [Mass/Vol] 29 mg/dL Critically low 40-60 [facility] Comment on above: Performed By: #### L IPA, CMP, CK, HSTROPN #### [facility] [address] [address] [address] Frank Nugent Cholesterol in LDL [Mass/Vol] 83.2 mg/dL Normal [facility] Comment on above: Performed By: #### L IPA, CMP, CK, HSTROPN #### [facility] [address] [address] [address] Frank Nugent Cholesterol.total/Ch olesterol in HDL [Mass ratio] 6.3 {ratio} Normal [facility] Comment on above: Performed By: #### L IPA, CMP, CK, HSTROPN #### [facility] [address] [address] [address] Frank Nugent HDL NORMAL > or = 60 mg/dl - LO W CARDIOVASCULAR RISK <40 mg/dl - HIGH CARDIOVASCULAR RISK Normal [facility] Comment on above: Performed By: #### L IPA, CMP, CK, HSTROPN #### [facility] [address] [address] [address] Frank Nugent LDL CALC NORMAL SEE BELOW Normal [facility] Comment on above: Result Comment: <100 mg/dl OPTIMAL 100 - 129 mg/dl NEAR OR ABOVE OPTIMAL 130 - 159 mg/dl BORDERLINE HIGH 160 - 189 mg/dl HIGH >190 mg/dl VERY HIGH Performed By: #### L IPA, CMP, CK, HSTROPN #### [facility] [address] [address] [address] Frank Nugent Triglyceride [Mass/Vol] 354 mg/dL Critically high <=150 [facility] Comment on above: Performed By: #### L IPA, CMP, CK, HSTROPN #### [facility] [address] [address] [address] Frank Nugent VLDL CALC 70.8 mg/dL Normal [facility] Comment on above: Performed By: #### L IPA, CMP, CK, HSTROPN #### [facility] [address] [address] [address] Frank Nugent PROF 14(COMP METB)on 023 Albumin [Mass/Vol] 4.4 g/dL Normal 3.4-5.0 [facility] Comment on above: Performed By: #### L IPA, CMP, CK, HSTROPN #### [facility] [address] [address] [address] Frank Nugent Albumin/Globulin [Mass ratio] 1.2 {ratio} Normal [facility] Comment on above: Performed By: #### L IPA, CMP, CK, HSTROPN #### [facility] [address] [address] [address] Frank Nugent ALP [Catalytic activity/Vol] 81 U/L Normal 46-116 [facility] Comment on above: Performed By: #### L IPA, CMP, CK, HSTROPN #### [facility] [address] [address] [address] Frank Nugent ALT [Catalytic activity/Vol] 102 U/L Critically high 16-63 [facility] Comment on above: Performed By: #### L IPA, CMP, CK, HSTROPN #### [facility] [address] [address] [address] Frank Nugent Anion gap [Moles/Vol] 14.6 mmol/L Normal [facility] Comment on above: Performed By: #### L IPA, CMP, CK, HSTROPN #### [facility] [address] [place] [address] Dr. Frank Nugent AST [Catalytic activity/Vol] 55 U/L Critically high 15-37 [facility] Comment on above: Performed By: #### L IPA, CMP, CK, HSTROPN #### [facility] [address] [address] [address] Frank Nugent Bilirubin [Mass/Vol] 1.0 mg/dL Normal 0.2-1.0 [facility] Comment on above: Performed By: #### L IPA, CMP, CK, HSTROPN #### [facility] [address] [place] [address] Dr. Frank Nugent Calcium [Mass/Vol] 9.5 mg/dL Normal 8.5-10.1 [facility] Comment on above: Performed By: #### L IPA, CMP, CK, HSTROPN #### [facility] [address] [place] [address] Dr. Frank Nugent Chloride [Moles/Vol] 103 mmol/L Normal 98-107 [facility] Comment on above: Performed By: #### L IPA, CMP, CK, HSTROPN #### [facility] [address] [place] [address] Dr. Frank Nugent CO2 [Moles/Vol] 23.4 mmol/L Normal 21.0-32.0 [facility] Comment on above: Performed By: #### L IPA, CMP, CK, HSTROPN #### [facility] [address] [address] [address] Frank Nugent Creatinine [Mass/Vol] 0.88 mg/dL Normal 0.70-1.30 [facility] Comment on above: Performed By: #### L IPA, CMP, CK, HSTROPN #### [facility] [address] [address] [address] Frank Nugent EGFR-AF KOSOVAN >60 Normal >=60 [facility] Comment on above: Performed By: #### L IPA, CMP, CK, HSTROPN #### [facility] [address] [place] [address] Dr. Frank Nugent EGFR-NON AF KOSOVAN >60 Normal >=60 [facility] Comment on above: Performed By: #### L IPA, CMP, CK, HSTROPN #### [facility] [address] [place] [address] Dr. Frank Nugent Globulin (S) [Mass/Vol] 3.6 g/dL Normal [facility] Comment on above: Performed By: #### L IPA, CMP, CK, HSTROPN #### [facility] [address] [place] [address] Dr. Frank Nugent Glucose [Mass/Vol] 164 mg/dL Critically high 74-106 [facility] Comment on above: Performed By: #### L IPA, CMP, CK, HSTROPN #### [facility] [address] [address] [address] Frank Nugent Potassium [Moles/Vol] 4.0 mmol/L Normal 3.5-5.1 [facility] Comment on above: Performed By: #### L IPA, CMP, CK, HSTROPN #### [facility] [address] [place] [address] Dr. Frank Nugent Protein [Mass/Vol] 8.0 g/dL Normal 6.4-8.2 [facility] Comment on above: Performed By: #### L IPA, CMP, CK, HSTROPN #### [facility] [address] [place], [place] [address] Dr. Frank Nugent Sodium [Moles/Vol] 137 mmol/L Normal 136-145 [facility] Comment on above: Performed By: #### L IPA, CMP, CK, HSTROPN #### [facility] [address] [place] [address] Dr. Frank Nugent Urea nitrogen [Mass/Vol] 16.0 mg/dL Normal 7.0-18.0 [facility] Comment on above: Performed By: #### L IPA, CMP, CK, HSTROPN #### [facility] [address] [place] [address] Dr. Frank Nugent Urea nitrogen/Creatinine [Mass ratio] 18.2 mg/mg Normal [facility] Comment on above: Performed By: #### L IPA, CMP, CK, HSTROPN #### [facility] [address] [place] [address] Dr. Frank Nugent TSHon 08-10-2022 TSH 0.879 uIU/mL Normal 0.358-3.740 [facility] Comment on above: Performed By: #### L IPA, CMP, CK, HSTROPN #### [facility] [address] [place] [address] Dr. Frank Nugent URIC ACID SERUMon 08-10-2022 Urate [Mass/Vol] 5.1 mg/dL Normal 3.5-7.2 [facility] Comment on above: Performed By: #### L IPA, CMP, CK, HSTROPN #### [facility] [address] [place] [address] Dr. Frank Nugent VITAMIN D 25 OHon 08-10-2022 VIT D 25-OH 12.1 ng/mL Normal [facility] Comment on above: Performed By: #### P SASC, VITAD #### [facility] [address] [place] [address] Dr. Frank Nugent VIT D RANGES SEE BELOW Normal [facility] Comment on above: Result Comment: <20 ng/mL Vit D deficient 20 - <30 ng/mL Vit D insufficient 30 - 100 ng/mL Vit D sufficient >100 ng/mL Potential Toxicity Performed By: #### P SASC, VITAD #### [facility] [address] [address] [address] Frank Nugent Urinalysison 04-25-2021 Appearance (U) Clear Normal Clear [facility] Comment on above: Order Comment: Name Collection Type:: Clean-Voided Midstream Performed By: #### U A #### [facility] [address] [place] [address] [place] Bilirubin,Urine Negative Normal Negative [facility] Comment on above: Order Comment: Name Collection Type:: Clean-Voided Midstream Performed By: #### U A #### [facility] [address] [place] [address] [place] Color (U) Yellow Normal Yellow [facility] Comment on above: Order Comment: Name Collection Type:: Clean-Voided Midstream Performed By: #### U A #### [facility] [address] [place] [address] [place] Glucose Ql (U) Normal Normal Normal [facility] Comment on above: Order Comment: Name Collection Type:: Clean-Voided Midstream Performed By: #### U A #### [facility] [address] [place] [address] [place] Ketones Ql (U) Negative Normal Negative [facility] Comment on above: Order Comment: Name Collection Type:: Clean-Voided Midstream Performed By: #### U A #### [facility] [address] [place] [address] [place] Leukocyte esterase Test strip Ql (U) Negative Normal Negative [facility] Comment on above: Order Comment: Name Collection Type:: Clean-Voided Midstream Performed By: #### U A #### [facility] [address] [place] [address] [place] Nitrite,Urine Negative Normal Negative [facility] Comment on above: Order Comment: Name Collection Type:: Clean-Voided Midstream Performed By: #### U A #### [facility] [address] [place], [place] [address] [place] Occult Blood,Urine Negative Normal Negative [facility] Comment on above: Order Comment: Name Collection Type:: Clean-Voided Midstream Result Comment: PERF ORMED BY: [place] [address] PATHOLOGIST SPANISH SPEAKING NANNY HARESH LUI M.D. Performed By: #### U A #### [facility] [address] [place] [address] pH (U) 6.0 [pH] Normal 5.0-9.0 [facility] Comment on above: Order Comment: Name Collection Type:: Clean-Voided Midstream Performed By: #### U A #### [address] Protein,Urine Negative Normal Negative [facility] Comment on above: Order Comment: Name Collection Type:: Clean-Voided Midstream Performed By: #### U A #### [address] Specificy Reading,Urine 1.018 Normal 1.001-1.030 [facility] Comment on above: Order Comment: Name Collection Type:: Clean-Voided Midstream Performed By: #### U A #### [address] Urobilinogen,Urine Normal Normal Normal [facility] Comment on above: Order Comment: Name Collection Type:: Clean-Voided Midstream Performed By: #### U A #### [facility] [address] [place] [address] XR chest 1V portableon 04-25 XR chest 1V portable [facility] [place] [address] XRay Report Signed Patient: Jerry Wilson MR#: [id number] : 1970 Acct:[id number] Age/Sex: 50 / M ADM Date: 04/24/21 Loc: ER Room: Type: [facility] ER Attending Dr: Ordering Provider: Nitesh Pittman DO Date of Service: 04/24/21 XR/XR chest 1V portable: Dizziness Copies to: Nitesh Pittman DO PORTABLE AP ERECT CHEST 0250 hours [...] Daphne Hutchinson M.D.04/25/2021 7:58 AM Dictation Location: [address] [address] Transcribed By: [facility] 04/25/21757 Dictated By: Daphne Hutchinson MD 04/25/21756 Signed By: 04/25/21757 Normal [facility] B-Type Natriuretic Peptideon 04-24-2021 Natriuretic peptide B (Bld) [Mass/Vol] 20.0 pg/mL Normal 5-100 [facility] Comment on above: Result Comment: PERF ORMED BY: [facility] [address] [place] [address] PATHOLOGIST SPANISH SPEAKING NANNY HARESH LUI M.D. Performed By: #### H S TROP, CMP, CBC, BNP, MG #### [place] [address] COVID-19 Antigenon 1 COVID-19 Antigen Results [...] its performance Adolfo Disclaimer characteristic determined by [employer] and Adolfo Disclaimer validated at [facility]. This Adolfo Disclaimer test has not [...] is terminated or revoked sooner. PERFORMED BY: [facility] [address] [place] [address] PATHOLOGIST SPANISH SPEAKING NANNY HARESH LUI M.D. [facility] Comment on above: Performed By: #### C OVID-19 ADOLFO, SOFIAPOS #### [place] [address] [place] [address] [facility] Complete Blood Count Auto Di ffon 12-14-2021 Basophils (Bld) [#/Vol] 0.0 10*3/uL Normal 0.0-0.2 [facility] Comment on above: Result Comment: PERF ORMED BY: [place] [address] PATHOLOGIST SPANISH SPEAKING NANNY HARESH LUI M.D. Performed By: #### H S TROP, CMP, CBC, BNP, MG #### [address] Basophils/100 WBC (Bld) 0.7 % Normal . [facility] Comment on above: Performed By: #### H S TROP, CMP, CBC, BNP, MG #### [address] Eosinophils (Bld) [#/Vol] 0.1 10*3/uL Normal 0.0-0.45 [facility] Comment on above: Performed By: #### H S TROP, CMP, CBC, BNP, MG #### [address] Eosinophils/100 WBC (Bld) 1.8 % Normal . [facility] Comment on above: Performed By: #### H S TROP, CMP, CBC, BNP, MG #### [address] Erythrocyte distribution width (RBC) [Ratio] 12.9 % Normal 12.0-14.8 [facility] Comment on above: Performed By: #### H S TROP, CMP, CBC, BNP, MG #### [address] Hematocrit (Bld) [Volume fraction] 43.7 % Normal 38.8-50.0 [facility] Comment on above: Performed By: #### H S TROP, CMP, CBC, BNP, MG #### [address] Hemoglobin (Bld) [Mass/Vol] 15.0 g/dL Normal 13.0-17.0 [facility] Comment on above: Performed By: #### H S TROP, CMP, CBC, BNP, MG #### [address] Lymphocytes (Bld) [#/Vol] 0.7 10*3/uL Low 1.00-4.8 [facility] Comment on above: Performed By: #### H S TROP, CMP, CBC, BNP, MG #### [address] Lymphocytes/100 WBC (Bld) 14.0 % Normal . [facility] Comment on above: Performed By: #### H S TROP, CMP, CBC, BNP, MG #### [address] MCH (RBC) [Entitic mass] 29.7 pg Normal 27.5-35.2 [facility] Comment on above: Performed By: #### H S TROP, CMP, CBC, BNP, MG #### [address] MCV (RBC) [Entitic vol] 86.4 fL Normal 83.5-101 [facility] Comment on above: Performed By: #### H S TROP, CMP, CBC, BNP, MG #### [address] Mean Corpuscular HGB Conc 34.4 g/dL Normal 32.5-35.6 [facility] Comment on above: Performed By: #### H S TROP, CMP, CBC, BNP, MG #### [address] Monocytes (Bld) [#/Vol] 1.1 10*3/uL High 0.0-0.8 [facility] Comment on above: Performed By: #### H S TROP, CMP, CBC, BNP, MG #### [address] Monocytes/100 WBC (Bld) 21.3 % Normal . [facility] Comment on above: Performed By: #### H S TROP, CMP, CBC, BNP, MG #### [address] Neutrophils (Bld) [#/Vol] 3.2 10*3/uL Normal 1.8-7.7 [facility] Comment on above: Performed By: #### H S TROP, CMP, CBC, BNP, MG #### [place] [address] Neutrophils/100 WBC (Bld) 62.2 % Normal . [facility] Comment on above: Performed By: #### H S TROP, CMP, CBC, BNP, MG #### [place] [address] Nucleated RBC/100 WBC (Bld) [Ratio] 0.2 % Normal 0-0.5 [facility] Comment on above: Performed By: #### H S TROP, CMP, CBC, BNP, MG #### [address] Platelet mean volume (Bld) [Entitic vol] 9.6 fL Normal 6.6-10.1 [facility] Comment on above: Performed By: #### H S TROP, CMP, CBC, BNP, MG #### [place] [address] Platelets (Bld) [#/Vol] 201 10*3/uL Normal 150-450 [facility] Comment on above: Performed By: #### H S TROP, CMP, CBC, BNP, MG #### [place] [address] [place] RBC (Bld) [#/Vol] 5.06 10*6/uL Normal 3.90-5.60 [facility] Comment on above: Performed By: #### H S TROP, CMP, CBC, BNP, MG #### [place] [address] [place] [address] [place] WBC (Bld) [#/Vol] 5.2 10*3/uL Normal 4.5-11.0 [facility] Comment on above: Performed By: #### H S TROP, CMP, CBC, BNP, MG #### [place] [address] Comprehensive Metabolic Pane alan 12-14-2021 Albumin [Mass/Vol] 4.2 g/dL Normal 3.2-5.5 [facility] Comment on above: Performed By: #### H S TROP, CMP, CBC, BNP, MG #### [facility] [address] Albumin/Globulin [Mass ratio] 1.3 {ratio} Normal [facility] Comment on above: Performed By: #### H S TROP, CMP, CBC, BNP, MG #### [facility] [address] ALP [Catalytic activity/Vol] 55 U/L Normal 32-92 [facility] Comment on above: Performed By: #### H S TROP, CMP, CBC, BNP, MG #### [facility] [address] ALT [Catalytic activity/Vol] 85 U/L High 10-60 [facility] Comment on above: Performed By: #### H S TROP, CMP, CBC, BNP, MG #### [facility] [address] [place] [address] AST [Catalytic activity/Vol] 82 U/L High 10-42 [facility] Comment on above: Performed By: #### H S TROP, CMP, CBC, BNP, MG #### [facility] [address] Bilirubin [Mass/Vol] 1.1 mg/dL Normal 0.3-1.2 [facility] Comment on above: Performed By: #### H S TROP, CMP, CBC, BNP, MG #### [facility] [address] [place] [address] [place] Calcium [Mass/Vol] 9.6 mg/dL Normal 8.2-10.2 [facility] Comment on above: Performed By: #### H S TROP, CMP, CBC, BNP, MG #### [facility] [address] [place] [address] [place] Chloride [Moles/Vol] 103 mmol/L Normal 95-114 [facility] Comment on above: Performed By: #### H S TROP, CMP, CBC, BNP, MG #### [facility] [address] CO2 [Moles/Vol] 21.2 mmol/L Low 22.0-30.0 [facility] Comment on above: Performed By: #### H S TROP, CMP, CBC, BNP, MG #### [place] [address] Creatinine [Mass/Vol] 1.16 mg/dL Normal 0.64-1.27 [facility] Comment on above: Performed By: #### H S TROP, CMP, CBC, BNP, MG #### [address] Creatinine Clr Calc Pharmacy 118.79 [facility] Comment on above: Performed By: #### H S TROP, CMP, CBC, BNP, MG #### [address] Estimated GFR ( Stacey > 60 [facility] Comment on above: Result Comment: GFR estimated reference range: According to KDOQI guidelines, <60 ml/min/1.73m2 is sufficient to diagnose a patient with chronic kidney disease. Performed By: #### H S TROP, CMP, CBC, BNP, MG #### [address] Estimated GFR (Non- Am > 60 [facility] Comment on above: Performed By: #### H S TROP, CMP, CBC, BNP, MG #### [address] Globulin (S) [Mass/Vol] 3.2 g/dL [facility] Comment on above: Performed By: #### H S TROP, CMP, CBC, BNP, MG #### [address] Glucose [Mass/Vol] 144 mg/dL High 70-100 [facility] Comment on above: Result Comment: [place] Glucose Reference Range is dependent on time and content of last meal. Glucose of more than 200 mg/dL in a nonstressed, ambulatory subject supports the diagnosis of Diabetes Mellitus. ADA recommended reference range Performed By: #### H S TROP, CMP, CBC, BNP, MG #### [address] Potassium [Moles/Vol] 4.0 mmol/L Normal 3.5-5.1 [facility] Comment on above: Performed By: #### H S TROP, CMP, CBC, BNP, MG #### [address] Protein [Mass/Vol] 7.4 g/dL Normal 6.1-7.9 [facility] Comment on above: Performed By: #### H S TROP, CMP, CBC, BNP, MG #### [address] Sodium [Moles/Vol] 135 mmol/L Low 136-146 [facility] Comment on above: Performed By: #### H S TROP, CMP, CBC, BNP, MG #### [address] Urea nitrogen [Mass/Vol] 20 mg/dL Normal 9-23 [facility] Comment on above: Performed By: #### H S TROP, CMP, CBC, BNP, MG #### [address] ECG 12 lead ECGon 04-24-2021 ECG 12 lead ECG [facility] Main [place] [address] [place] [address] Electrocardiograph Report Signed Patient: Jerry Wilson MR#: [id number] : 1970 Acct:[id number] Age/Sex: 50 / M ADM Date: 04/24/21 Loc: ER Room: Type: [facility] ER Attending Dr: Ordering Provider: Nitesh Pittman DO Date of Service: 04/24/21 ECG/ECG 12 lead ECG: Dizziness Copies to: Test Reason : Blood Pressure : / mmHG Vent. Rate : 091 BPM Atrial Rate : 091 BPM P-R Int : 136 ms QRS Dur : 104 ms QT Int : 390 ms P-R-T Axes : 067 -36 068 degrees QTc Int : 479 ms Normal sinus rhythm Confirmed by Nitesh PITTMAN DO ([id number]) on 04/25/2021 12:42:23 AM Referred By: Electronically Signed By:Nitesh PITTMAN DO Transcribed By: MUS Signed By Nitesh Pittman DO 1 06/26/20 0042 Normal [facility] Magnesiumon 04-24-2021 Magnesium [Mass/Vol] 1.9 mg/dL Normal 1.6-2.6 [facility] Comment on above: Result Comment: PERF ORMED BY: [place] [address] PATHOLOGIST SPANISH SPEAKING NANNY HARESH LUI M.D. Performed By: #### H S TROP, CMP, CBC, BNP, MG #### [facility] [address] [place] [address] [facility] Partial Thromboplastin Timeo n 04-24-2021 aPTT Coag (Bld) [Time] 29.3 s Normal 25.1-36.5 [facility] Comment on above: Result Comment: PERF ORMED BY: [place] [address] PATHOLOGIST SPANISH SPEAKING NANNY HARESH LUI M.D. Performed By: #### P TT, PT #### [facility] [address] [place] [id number] [place] Prothrombin Time INRon 04-24 INR Coag (PPP) [Relative time] 1.0 {INR} Normal [facility] Comment on above: Result Comment: INR [...] Performed By: #### P TT, PT #### [facility] [address] [place] [address] [place] PT Coag (PPP) [Time] 11.5 s Normal 9.0-12.9 [facility] Comment on above: Performed By: #### P TT, PT #### [facility] [address] Adolfo Ag Positiveon 04-24-20 21 Adolfo Ag Positive Positive Critically abnormal Negative [facility] Comment on above: Result Comment: This is a duplicate Adolfo SARS Antigen (KOKO) result to be used for statistical tracking purpose only. PERFORMED BY: [place] [address] PATHOLOGIST SPANISH SPEAKING NANNY HARESH LUI M.D. Performed By: #### C OVID-19 ADOLFO, SOFIAPOS #### [address] Troponin I High Sensitivityo n 04-24-2021 Troponin I High Sensitivity 4 pg/mL Normal 0-20 [facility] Comment on above: Result Comment: PERF ORMED BY: [place] [address] PATHOLOGIST SPANISH SPEAKING NANNY HARESH LUI M.D. Performed By: #### H S TROP, CMP, CBC, BNP, MG #### [address] Follow Up (Pulmonary Medicin e)on 01-12-2021 Follow Up (Pulmonary Medicine) Diagnoses/Problems Dyspnea on exertion (786.09) (R06.00) Sarcoidosis (135) (D86.9) CLEM on CPAP (327.23,V46.8) (G47.33,Z99.89) Orders Cardiopulmonary Stress Test (Met Stress Test); Status:Hold For - Scheduling; Requested for:[id number]; Perform:[facility]); Due:[id number];Ordered ; For:Dyspnea on exertion; Ordered By:Carter Dangelo; Patient Discussion/Summary Mr. Wilson, it was a [...] dyspnea on exertion and sarcoidosis. PCP: Dr. Zuñiga Other: Dr. Jaimes (pulmonary in [place]) HPI: 11/22/2020: At baseline, he had no [...] He was started on prednisone by his sericulturist in July. He initially felt slightly improved but shortly started worsening again. 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 Has known exposure to asbestos, silica or beryllium CTD evaluation: No hx of joint pain/swelling, skin rashes, Raynaud's, sicca syndrome, eye redness, muscle pain and weakness, difficulty swallowing. Family History: No family history of lung diseases or cancer Imaging history: (I have personally reviewed the imaging below) 12/15/2020 HRC (more content not included)... Normal [employer] Tobacco Screening.on Fall risk assessment a) No falls within the last year [facility] [place] [facility] Work Phone: [phone] Tobacco use status CPHS b) No [facility] [place] [facility] Work Phone: [phone] No Panel Informationon 12-15 [email or web address]?RetrieveTest ByDateTime?PatientID= [id number]&Date=2020&Time=13%3a21%3a3 0%3a00&TestType=ECG&S ite=1&OutputType=PDF& Ext=PDF [facility] [place] [facility] Work Phone: [phone] Normal sinus rhythm [facility] [place] [facility] Work Phone: [phone] Normal [facility] [place] [facility] Work Phone: [phone] 1 [facility] [place] [facility] Work Phone: [phone] 1 [facility] [place] [facility] Work Phone: [phone] 1 [facility] [place] [facility] Work Phone: [phone] 1 [facility] [place] [facility] Work Phone: [phone] 1 [facility] [place] [facility] Work Phone: [phone] 1 [facility] [place] [facility] Work Phone: [phone] 1 [facility] [place] [facility] Work Phone: [phone] -[phone] 1 [facility] [place] [facility] Work Phone: [phone] 1 [facility] [place] [facility] Work Phone: [phone] 1 [facility] [place] [facility] Work Phone: [phone] 1 [facility] [place] [facility] Work Phone: [phone] 1 [facility] [place] [facility] Work Phone: [phone] [facility] [place] [facility] Work Phone: [phone] [facility] [place] [facility] Work Phone: Follow Up (Pulmonary Medicin e)on 11-22-2020 Follow Up (Pulmonary Medicine) Diagnoses/Problems Daily caffeine consumption Sarcoidosis (135) (D86.9) Mediastinal lymphadenopathy (785.6) (R59.0) Dyspnea on exertion (786.09) (R06.00) CLEM on CPAP (327.23,V46.8) (G47.33,Z99.89) Orders 6 Minute Walk Test; Status:Hold For - Scheduling; Requested for:22Nov2020; Perform:[facility] Due:20Feb2021;Ordered ; For:ILD (interstitial lung disease); Ordered By:Carter Dangelo; Calcium, Urine 24 Hour; Status:Active; Requested for:22Nov2020; Perform:[facility] - Lab To Draw (Non-Blood Test); Due:20Feb2021;Ordered ; For:ILD (interstitial lung disease); Ordered By:Carter Dangelo; Complete Blood Count + Differential; Status:In Progress - Specimen/Data Collected; Done: [id number] Perform:[facility] - Lab To Draw (Blood Test); Due:20Feb2021;Ordered ; For:ILD (interstitial lung disease); Ordered By:Carter Dangelo; Complete PFT w/o ABG; Status:Hold For - Scheduling; Requested for:22Nov2020; Perform:[facility] Due:20Feb2021;Ordered ; For:ILD (interstitial lung disease); Ordered By:Carter Dangelo; Comprehensive Metabolic Panel; Status:In Progress - Specimen/Data Collected; Done: [id number] Perform:[facility] - Lab To Draw (Blood Test); Due:20Feb2021;Ordered ; For:ILD (interstitial lung disease); Ordered By:Carter Dangelo; CT Chest without Contrast; Status:Active; Requested for:[id number]; Perform:[facility];Ordered; For:ILD (interstitial lung disease); Ordered By:Carter Dangelo; Patient taking Metformin or Derivatives? : No Radiologist to Determine Optimal Study : Y What are the patient's signs and symptoms? : dyspnea on exertion Echocardiogram; Status:Hold For - Scheduling; Requested for:22Nov2020; Perform:[facility] ([facility]); Due:20Feb2021;Ordered ; For:ILD (interstitial lung disease); Ordered By:Carter Dangelo; Electrocardiogram EKG; Status:Hold For - Scheduling; Requested for:22Nov2020; Perform:[facility] [place]; Due:20Feb2021;Ordered ; For:ILD (interstitial lung disease); Ordered By:Carter Dangelo; HIV 1/2 ANTIGEN/ANTIBODY SCREEN WITH REFLEX TO CONFIRMATION; Status:In Progress - Specimen/Data Collected; Done: 22Nov2020 Perform:Lab Services - Lab To Draw (Blood Test); Due:20Feb2021;Ordered ; For:ILD (interstitial lung disease); Ordered By:Carter Dangelo; MISCELLANEOUS TEST; Status:In Progress - Specimen/Data Collected; Done: 22Nov2020 Perform:Lab Services - Lab To Draw (Non-Blood Test); Order Comments:Beryllium lymphocyte proliferation test; Due:20Feb2021;Ordered ; For:ILD (interstitial lung disease); Ordered By:Carter Dangelo; T-SPOT. TB; Status:In Progress - Specimen/Data Collected; Done: 22Nov2020 Perform:Lab Services - Lab To Draw (Blood Test); Due:20Feb2021;Ordered ; For:ILD (interstitial lung disease); Ordered By:Carter Dangelo; Urinalysis; Status:In Progress - Specimen/Data Collected; Done: 22Nov2020 Perform:Lab Services - Lab To Draw (Non-Blood Test); Due:20Feb2021;Ordered ; For:ILD (interstitial lung disease); Ordered By:Carter Dangelo; Vitamin D 25-Hydroxy; Status:In Progress - Specimen/Data Collected; Done: 22Nov2020 Perform:Lab Services - Lab To Draw (Blood Test); Due:20Feb2021;Ordered ; For:ILD (interstitial lung disease); Ordered By:Carter Dangelo; Vitamin-D 1,25-Dihydroxy, Level; Status:In Progress - Specimen/Data Collected; Done: 22Nov2020 Perform:Lab Services - Lab To Draw (Blood Test); Due:20Feb2021;Ordered ; For:ILD (interstitial lung disease); Ordered By:Carter Dangelo; Chief Complaint Visit For: Other Initial visit [...] Daily Vitals Vital Signs Recorded: 22Nov2020 01:10PM Qhpahopjcch93.8 F Heart Rate96 Xzvegkqk988 Yvpojzxxx76 Ofalsj546 lb 14.4 oz Tobacco Useb) No Fall Screeninga) No falls within the last year O2 Vwacgghanf10, RA Pain Scale0 Signatures Electronically signed by : Carter Dangelo MD; Nov 22 2020 5:33PM EST (Author) Normal [facility] Initial Visit (Pulmonary Med icine)on 11-22-2020 Initial Visit (Pulmonary Medicine) Diagnoses/Problems Daily caffeine consumption Sarcoidosis (135) (D86.9) Mediastinal lymphadenopathy (785.6) (R59.0) Dyspnea on exertion (786.09) (R06.00) CLEM on CPAP (327.23,V46.8) (G47.33,Z99.89) Orders 6 Minute Walk Test; Status:Hold For - Scheduling; Requested for:22Nov2020; Perform:[facility] Due:20Feb2021;Ordered ; For:ILD (interstitial lung disease); Ordered By:Carter Dangelo; Calcium, Urine 24 Hour; Status:Active; Requested for:22Nov2020; Perform:Lab Services - Lab To Draw (Non-Blood Test); Due:20Feb2021;Ordered ; For:ILD (interstitial lung disease); Ordered By:Carter Dangelo; Complete Blood Count + Differential; Status:In Progress - Specimen/Data Collected; Done: [id number] Perform:Lab Services - Lab To Draw (Blood Test); Due:20Feb2021;Ordered ; For:ILD (interstitial lung disease); Ordered By:Carter Dangelo; Complete PFT w/o ABG; Status:Hold For - Scheduling; Requested for:22Nov2020; Perform:[facility] Due:20Feb2021;Ordered ; For:ILD (interstitial lung disease); Ordered By:Carter Dangelo; Comprehensive Metabolic Panel; Status:In Progress - Specimen/Data Collected; Done: [id number] Perform:Lab Services - Lab To Draw (Blood Test); Due:20Feb2021;Ordered ; For:ILD (interstitial lung disease); Ordered By:Carter Dangelo; CT Chest without Contrast; Status:Active; Requested for:15Dec2020; Perform:[facility];Ordered; For:ILD (interstitial lung disease); Ordered By:Carter Dangelo; Patient taking Metformin or Derivatives? : No Radiologist to Determine Optimal Study : Y What are the patient's signs and symptoms? : dyspnea on exertion Echocardiogram; Status:Hold For - Scheduling; Requested for:22Nov2020; Perform:[facility] Due:20Feb2021;Ordered ; For:ILD (interstitial lung disease); Ordered By:Carter Dangelo; Electrocardiogram EKG; Status:Hold For - Scheduling; Requested for:22Nov2020; Perform:[facility]; Due:20Feb2021;Ordered ; For:ILD (interstitial lung disease); Ordered By:Carter Dangelo; HIV 1/2 ANTIGEN/ANTIBODY SCREEN WITH REFLEX TO CONFIRMATION; Status:In Progress - Specimen/Data Collected; Done: [id number] Perform:Lab Services - Lab To Draw (Blood Test); Due:20Feb2021;Ordered ; For:ILD (interstitial lung disease); Ordered By:Carter Dangelo; MISCELLANEOUS TEST; Status:In Progress - Specimen/Data Collected; Done: [id number] Perform:Lab Services - Lab To Draw (Non-Blood Test); Order Comments:Beryllium lymphocyte proliferation test; Due:20Feb2021;Ordered ; For:ILD (interstitial lung disease); Ordered By:Carter Dangelo; T-SPOT. TB; Status:In Progress - Specimen/Data Collected; Done: [id number] Perform:Lab Services - Lab To Draw (Blood Test); Due:57Arj5279;Ordered ; For:ILD (interstitial lung disease); Ordered By:Carter Dangelo; Urinalysis; Status:In Progress - Specimen/Data Collected; Done: [id number] Perform:Lab Services - Lab To Draw (Non-Blood Test); Due:20Feb2021;Ordered ; For:ILD (interstitial lung disease); Ordered By:Carter Dangelo; Vitamin D 25-Hydroxy; Status:In Progress - Specimen/Data Collected; Done: [id number] Perform:Lab Services - Lab To Draw (Blood Test); Due:20Feb2021;Ordered ; For:ILD (interstitial lung disease); Ordered By:Carter Dangelo; Vitamin-D 1,25-Dihydroxy, Level; Status:In Progress - Specimen/Data Collected; Done: [id number] Perform:Lab Services - Lab To Draw (Blood Test); Due:20Feb2021;Ordered ; For:ILD (interstitial lung disease); Ordered By:Carter Dangelo; Patient Discussion/Summary Mr. Wilson, it was a [...] will sta (more content not included)... Normal [facility] Tobacco Screening.on 021 Fall risk assessment a) No falls within the last year [facility] Work Phone: Tobacco use status [facility] b) No [facility] Work Phone: Consult (Pulmonary Medicine) on 07-19-2020 Consult (Pulmonary [...] -Pre-procedural labs By signing my name below, Layla Humphries Scribe, attest that this documentation has been prepared under the direction and in the presence of Dr Troy Miguel. All medical record entries made by the Kevinibjamir were at my direction and personally dictated [...] / hilar lymphadenopathy. Appointment requested by: Dr. Jaimes. History of Present IllnessDue to COVID-19 precautions, [...] HFA Social History: Tobacco: Never smoker Occupation: [employer], dust exposure Imaging history: (I have [...] Auto #/vol (Bld) 0.0 10*3/uL Normal 0.0-0.2 [facility] Basophils/100 WBC Auto (Bld) 0.5 % Normal [facility] Eosinophils Auto #/vol (Bld) 0.1 10*3/uL Normal 0.0-0.7 [facility] Eosinophils/100 WBC Auto (Bld) 2.6 % Normal [facility] Erythrocyte distribution width Auto Ratio (RBC) 12.6 % Normal 11.5-14.5 [facility] Hematocrit Auto Volume Fraction (Bld) 38.2 % Low 42.0-52.0 [facility] Hemoglobin mass conc (Bld) 13.1 g/dL Low 14.0-18.0 [facility] Lymphocytes Auto #/vol (Bld) 0.8 10*3/uL Low 1.0-4.8 [facility] Lymphocytes/100 WBC Auto (Bld) 18.0 % Normal [facility] MCH Auto Entitic mass (RBC) 30.7 pg Normal 27.0-31.3 [facility] MCHC Auto mass conc (RBC) 34.4 % Normal 33.0-37.0 [facility] MCV Auto Entitic volume (RBC) 89.3 fL Normal 80.0-100.0 [facility] Monocytes Auto #/vol (Bld) 0.7 10*3/uL Normal 0.2-0.8 [facility] Monocytes/100 WBC Auto (Bld) 14.3 % Normal [facility] Neutrophils Auto #/vol (Bld) 3.0 10*3/uL Normal 1.4-6.5 [facility] Neutrophils/100 WBC Auto (Bld) 64.6 % Normal [facility] Platelets Auto #/vol (Bld) 233 10*3/uL Normal 130-400 [facility] RBC Auto #/vol (Bld) 4.28 10*6/uL Low 4.70-6.10 [facility] WBC Auto #/vol (Bld) 4.6 10*3/uL Low 4.8-10.8 [facility] Sedimentation Rateon 018 Sedimentation Rate 48 mm Critically high 0-10 M [facility] Basic Metabolic Panel Reflex Mgon 05-01-2018 Anion gap 3 molar conc 15 mmol/L Critically high 7-13 [facility] Calcium mass conc 8.9 mg/dL Normal 8.6-10.2 [facility] Chloride molar conc 102 mmol/L Normal 98-107 [facility] CO2 molar conc 22 mmol/L Normal 22-29 [facility] Creatinine mass conc 0.85 mg/dL Normal 0.70-1.20 [facility] GFR/1.73 sq M predicted among blacks MDRD vol rate/area (S/P/Bld) mL/min/{1.73_m2} Normal >60 [facility] Comment on above: Result Comment: >60 mL/min/1.73m2 EGFR, calc. for ages 18 and older using theMDRD formula (not corrected for weight), is valid for stablerenal function. GFR/1.73 sq M.predicted MDRD vol rate/area mL/min/{1.73_m2} Normal >60 [facility] Comment on above: Result Comment: >60 mL/min/1.73m2 EGFR, calc. for ages 18 and older using theMDRD formula (not corrected for weight), is valid for stablerenal function. Glucose mass conc 189 mg/dL Critically high 74-109 [facility] Potassium reflex Mg 4.7 mEq/L Normal 3.5-5.1 [facility] Sodium molar conc 139 mmol/L Normal 132-144 [facility] Urea nitrogen mass conc 19 mg/dL Normal 6-20 [facility] CBC With Platelet and Differ entialon 05-01-2018 Basophils Auto #/vol (Bld) 0.0 10*3/uL Normal 0.0-0.2 [facility] Basophils/100 WBC Auto (Bld) 0.2 % Normal [facility] Eosinophils Auto #/vol (Bld) 0.0 10*3/uL Normal 0.0-0.7 [facility] Eosinophils/100 WBC Auto (Bld) 0.0 % Normal [facility] Erythrocyte distribution width Auto Ratio (RBC) 12.8 % Normal 11.5-14.5 [facility] Hematocrit Auto Volume Fraction (Bld) 40.5 % Low 42.0-52.0 [facility] Hemoglobin mass conc (Bld) 14.3 g/dL Normal 14.0-18.0 [facility] Lymphocytes Auto #/vol (Bld) 0.6 10*3/uL Low 1.0-4.8 [facility] Lymphocytes/100 WBC Auto (Bld) 6.1 % Normal [facility] MCH Auto Entitic mass (RBC) 31.1 pg Normal 27.0-31.3 [facility] MCHC Auto mass conc (RBC) 35.3 % Normal 33.0-37.0 [facility] MCV Auto Entitic volume (RBC) 88.2 fL Normal 80.0-100.0 [facility] Monocytes Auto #/vol (Bld) 0.3 10*3/uL Normal 0.2-0.8 [facility] Monocytes/100 WBC Auto (Bld) 2.6 % Normal [facility] Neutrophils Auto #/vol (Bld) 9.1 10*3/uL Critically high 1.4-6.5 [facility] Neutrophils/100 WBC Auto (Bld) 91.1 % Normal [facility] Platelets Auto #/vol (Bld) 209 10*3/uL Normal 130-400 [facility] RBC Auto #/vol (Bld) 4.60 10*6/uL Low 4.70-6.10 [facility] WBC Auto #/vol (Bld) 9.9 10*3/uL Normal 4.8-10.8 [facility] XR LUMBAR SPINE (2-3 VIEWS)o n [...] as above.Interpreted by:Matteo Rodríguez, DOSigned by:Matteo Rodríguez, DO05/01/18Final result Normal [facility] Antibody IDon 04-30-2018 Antibody ID PATIENT: LAURO Chan LOC: [facility] RIVERA NONBILL# : [id number] : 1970 SEX: MORDERED BY: SAVANAH BILLS ORDERED : 04/30/2018 11:55 COLLECTED: 04/30/2018 10:45ORDER : [id number] RECEIVED : 04/30/2018 10:45 Notified [facility] of positive ab screen and delay of compatible blood 04/30/18 11:40 Erika Rodgers TEST NAME RESULT UNITS RANGES ABN FL STAntibody ID POS, Cold Auto Aggluti F Normal [facility] Basic Metabolic Panel Reflex Mgon 04-30-2018 Anion gap 3 molar conc 17 mmol/L Critically high 7-13 [facility] Calcium mass conc 9.1 mg/dL Normal 8.6-10.2 [facility] Chloride molar conc 102 mmol/L Normal 98-107 [facility] CO2 molar conc 20 mmol/L Low 22-29 [facility] Creatinine mass conc 1.07 mg/dL Normal 0.70-1.20 [facility] GFR/1.73 sq M predicted among blacks MDRD vol rate/area (S/P/Bld) mL/min/{1.73_m2} Normal >60 [facility] Comment on above: Result Comment: >60 mL/min/1.73m2 EGFR, calc. for ages 18 and older using theMDRD formula (not corrected for weight), is valid for stablerenal function. GFR/1.73 sq M.predicted MDRD vol rate/area mL/min/{1.73_m2} Normal >60 [facility] Comment on above: Result Comment: >60 mL/min/1.73m2 EGFR, calc. for ages 18 and older using theMDRD formula (not corrected for weight), is valid for stablerenal function. Glucose mass conc 132 mg/dL Critically high 74-109 [facility] Potassium reflex Mg 4.1 mEq/L Normal 3.5-5.1 [facility] Sodium molar conc 139 mmol/L Normal 132-144 [facility] Urea nitrogen mass conc 21 mg/dL Critically high 6-20 [facility] CBC With Platelet No Differe ntialon 04-30-2018 Erythrocyte distribution width Auto Ratio (RBC) 12.9 % Normal 11.5-14.5 [facility] Hematocrit Auto Volume Fraction (Bld) 43.8 % Normal 42.0-52.0 [facility] Hemoglobin mass conc (Bld) 15.0 g/dL Normal 14.0-18.0 [facility] MCH Auto Entitic mass (RBC) 30.7 pg Normal 27.0-31.3 [facility] MCHC Auto mass conc (RBC) 34.3 % Normal 33.0-37.0 [facility] MCV Auto Entitic volume (RBC) 89.5 fL Normal 80.0-100.0 [facility] Platelets Auto #/vol (Bld) 208 10*3/uL Normal 130-400 [facility] RBC Auto #/vol (Bld) 4.89 10*6/uL Normal 4.70-6.10 [facility] WBC Auto #/vol (Bld) 10.4 10*3/uL Normal 4.8-10.8 [facility] BRIAN Poly Tubeon 04-30-2018 BRIAN Poly Tube PATIENT: LAURO Chan LOC: LCOPS,ORPOOL,NONBILL# : [id number] : 1970 SEX: MORDERED BY: SAVANAH BILLS ORDERED : 04/30/2018 12:48 COLLECTED: 04/30/2018 10:45ORDER : [id number] RECEIVED : 04/30/2018 10:45 Notified [facility] of positive ab screen and delay of compatible blood 04/30/18 11:40 Erika Rodgers TEST NAME RESULT UNITS RANGES ABN FL STDAT Poly Tube NEG F Normal [facility] FLUORO FOR SURGICAL PROCEDUR ESon [...] ANN Lucianoigned by:Cruz Ledesma MD05/01/18inal result Normal [facility] RBC LRon 04-30-2018 RBC Auto #/vol (Bld) PATIENT: LAURO Chan LOC: LC2N,N226,01BILL# : [id number] : 1970 SEX: MORDERED BY: SAVANAH BILLS ORDERED : 04/30/2018 11:55 COLLECTED: 04/30/2018 18:46ORDER : [id number] RECEIVED : 04/30/2018 19:12 Notified [facility] of positive ab screen and delay of compatible blood 04/30/18 11:40 Erika Rodgers TEST NAME RESULT UNITS RANGES ABN FL STRBC LR [id number] RBC LR W0 F = Normal [facility] Rejection Notificationon Rejected Test tyrcc Normal [facility] Type and Screen Capture 3 sc rn cellon 04-30-2018 Type and Screen Capture 3 scrn cell PATIENT: LAURO Chan LOC: [facility]IL[facility] RIVERA NONBILL# : [id number] : 1970 SEX: MORDERED BY: SAVANAH BILLS ORDERED : 04/30/2018 10:06 COLLECTED: 04/30/2018 10:45ORDER : [id number] RECEIVED : 04/30/2018 10:45 Notified [facility] of positive ab screen and delay of compatible blood 04/30/18 11:40 Erika Rodgers TEST NAME RESULT UNITS RANGES ABN FL STABORH Capture B POS FAntibody 3 Cell Scrn Captu POS F Normal [facility] Vital Signs Date Time Vital Sign Value Performing Clinician Facility 07-30-2024 09:30-0400 Body temperature 97.7 [degF] Sofie Durbin MD Work Phone: [facility] 07-30-2024 09:30-0400 Diastolic blood pressure 60 mm[Hg] Sofie Durbin MD Work Phone: [facility] 03-21-2025 09:30-0400 Heart rate 80 /min Sofie Durbin MD Work Phone: [facility] 07-30-2024 09:30-0400 Respiratory rate 18 /min Sofie Durbin MD Work Phone: [facility] 07-30-2024 09:30-0400 SaO2% (BldA) [Mass fraction] 92 % Sofie Durbin MD Work Phone: [facility] 07-30-2024 09:30-0400 Systolic blood pressure 126 mm[Hg] Sofie Durbin MD Work Phone: [facility] 07-29-2024 22:04-0400 Body height 177.8 cm Sofie Durbin MD Work Phone: [facility] 07-29-2024 22:04-0400 Body mass index (BMI) [Ratio] 47.35 kg/m2 Sofie Durbin MD Work Phone: [facility] 07-29-2024 22:04-0400 Body weight 149.68 kg Sofie Durbin MD Work Phone: [facility] Comment on above: ACTUAL BED WEIGHT 05-24-2024 09:54-0500 Diastolic blood pressure 88 mm[Hg] Alex PANG [facility] 05-24-2024 09:54-0500 Heart rate 80 /min Alex PANG [facility] 05-24-2024 09:54-0500 Respiratory rate 16 /min Alex PANG [facility] 05-24-2024 09:54-0500 Systolic blood pressure 152 mm[Hg] Alex PANG [facility] 02-11-2023 14:18-0400 Blood Pressure Location Bill MONAE [facility] 02-11-2023 14:18-0400 Diastolic blood pressure 104 mm[Hg] Bill MONAE [facility] 02-11-2023 14:18-0400 Heart rate 80 /min Bill MONAE [facility] [place] 02-11-2023 14:18-0400 Respiratory rate 16 /min Bill MONAE [facility] 02-11-2023 14:18-0400 Systolic blood pressure 140 mm[Hg] Bill MONAE [facility] 01-12-2021 13:17-0400 Body temperature 96.1 [degF] Referring [...] Date Encounter Type Care Provider Facility Start: 08-10-2024 ambulatory [facility] Start: 07-29-2024 End: 07-30-2024 Subsequent hospital visit by physician Jona Meneses [facility] Comment on above: Calculus of kidney Kidney stone (Primar y Dx); Calculus of kidney; Right kidney stone Start: 07-29-2024 End: 07-30-2024 ambulatory [facility] Start: 07-19-2024 End: 07-19-2024 ambulatory [facility] Start: 07-19-2024 End: 07-19-2024 ambulatory [facility] Start: 07-19-2024 End: 07-19-2024 Encounter for other preprocedural examination [facility] Start: 05-24-2024 End: 05-24-2024 ambulatory Alex Noel PANG Facility:[facility] Start: 05-24-2024 End: 05-24-2024 Patient encounter procedure Alex Cohen POLY [facility] Start: 03-30-2024 End: 03-30-2024 ambulatory JAIME KAPLAN Facility:[facility] Start: 03-30-2024 End: 03-30-2024 Lab Drop off JAIME KAPLAN [facility] Start: 03-30-2024 End: 03-30-2024 ambulatory PA-C JAIME KAPLAN Facility:[facility] Start: 03-30-2024 End: 03-30-2024 Patient encounter procedure JAIME KAPLAN [facility] Start: 03-05-2024 ambulatory Alex PANG Facility:[facility] Start: 04-22-2023 End: 04-22-2023 Patient encounter procedure Bill MONAE [facility] Start: 02-11-2023 End: 02-11-2023 Patient encounter procedure Bill MONAE [facility] Start: 09-13-2022 End: 09-13-[address] DORON ZUÑIGA . [facility] Start: 09-13-2022 Patient encounter procedure Halie Sam [facility] Start: 08-16-2022 Encounter for genera l adult medical examination without abnormal findings DR DORON ZUÑIGA . [facility] Start: 08-10-2022 End: 08-11-[address] DORON ZUÑIGA . Facility:[facility] Start: 08-10-2022 End: 08-11-2022 Encounter for general adult medical examination without abnormal findings DR DORON ZUÑIGA . Facility:[facility] Start: 01-12-2021 Office outpatient vi sit 40 minutes Referring Provider Unknown [facility] Work Phone: Start: 11-22-2020 Office consultation new/estab patient 80 min Referring Provider Unknown [facility] Work Phone: Start: 05-07-2018 End: 05-07-2018 Emergency department patient visit [facility] Start: 05-07-2018 Encounter for genera l adult medical examination without abnormal findings [facility] Start: 04-30-2018 End: 05-03-2018 Patient encounter procedure [facility] Start: 04-30-2018 End: 05-02-2018 Evaluation and management of inpatient [facility] Patient encounter status Referri ng Provider Unknown [facility] Work Phone: Procedures Date Procedure Procedure Detail Performing Clinician Start: 07-30-2024 Basic metabolic pane l calcium total Sofie Durbin MD Work Phone: Start: 07-29-2024 Glucose quantitative blood xcpt reagent strip Sofie Durbin MD Work Phone: Start: 07-29-2024 Basic metabolic pane l calcium total Sofie Durbin MD Work Phone: Start: 07-29-2024 XR tomography Unspec ified body region Sofie Durbin MD Work Phone: Start: 07-29-2024 End: 07-29-2024 PULSE OXIMETRY, CONTINUOUS Inez lassiter MD Work Phone: Start: 07-29-2024 End: 07-29-2024 Prothrombin time Radhames Chan Work Phone: Start: 04-09-[address] Start: 04-09-2023 Colonoscopy Bill SHAVER Start: 08-10-[address] VANE ZUÑIGA . Comment on above: Performed By: #### P NESTOR BENITO #### [facility] [address] [place] [address] Dr. Frank Nugent Start: 07-19-2020 Basic metabolic 1998 panel - Serum or Plasma Stuart Lamont Start: 07-19-2020 Blood count complete auto&auto difrntl wbc Stuart Lamont Start: 05-07-2018 Blood count complete auto&auto difrntl wbc GIACOMO SAVANAH Start: 05-07-2018 SEDIMENTATION RATE GIACOMO Y OO Start: 05-02-2018 INCENTIVE SPIROMETRY RT GIACOMO SAVANAH Start: 05-02-2018 DISCHARGE PATIENT GIACOMO YO O Start: 05-02-2018 INCENTIVE SPIROMETRY RT GIACOMO SAVANAH Start: 05-02-2018 PULSE OXIMETRY, CONTINUOUS GIACOMO SAVANAH Start: 05-02-2018 INCENTIVE SPIROMETRY RT GIACOMO SAVANAH Start: 05-02-2018 HOME BIPAP OR CPAP GIACOMO Y OO Start: 05-02-2018 INCENTIVE SPIROMETRY RT GIACOMO SAVANAH Start: 05-02-2018 INITIATE OXYGEN THER APY PROTOCOL GIACOMO SAVANAH Start: 05-02-2018 PULSE OXIMETRY, CONTINUOUS GIACOMO SAVANAH Start: 05-02-2018 INCENTIVE SPIROMETRY RT GIACOMO SAVANAH Start: 05-02-2018 PULSE OXIMETRY, CONTINUOUS GIACOMO SAVANAH Start: 05-02-2018 PULSE OXIMETRY, CONTINUOUS GIACOMO SAVANAH Start: 05-02-2018 INCENTIVE SPIROMETRY RT GIACOMO SAVANAH Start: 05-01-2018 INCENTIVE SPIROMETRY RT GIACOMO SAVANAH Start: 05-01-2018 PULSE OXIMETRY, CONTINUOUS GIACOMO SAVANAH Start: 05-01-2018 INCENTIVE SPIROMETRY RT GIACOMO SAVANAH Start: 05-01-2018 INCENTIVE SPIROMETRY RT GIACOMO SAVANAH Start: 05-01-2018 PULSE OXIMETRY, CONTINUOUS GIACOMO SAVANAH Start: 05-01-2018 INCENTIVE SPIROMETRY RT GIACOMO SAVANAH Start: 05-01-2018 INCENTIVE SPIROMETRY RT GIACOMO SAVANAH Start: 05-01-2018 PULSE OXIMETRY, CONTINUOUS GIACOMO SAVANAH Start: 05-01-2018 Radex spine lumbosac ral 2/3 views GIACOMO SAVANAH Start: 05-01-2018 INCENTIVE SPIROMETRY RT GIACOMO SAVANAH Start: 05-01-2018 HOME BIPAP OR CPAP GIACOMO Y OO Start: 05-01-2018 INCENTIVE SPIROMETRY RT GIACOMO SAVANAH Start: 05-01-2018 INITIATE OXYGEN THER APY PROTOCOL GIACOMO SAVANAH Start: 05-01-2018 PULSE OXIMETRY, CONTINUOUS GIACOMO SAVANAH Start: 05-01-2018 INCENTIVE SPIROMETRY RT GIACOMO SAVANAH Start: 05-01-2018 Blood count complete auto&auto difrntl wbc GIACOMO SAVANAH Start: 05-01-2018 Comprehensive metabo lic panel GIACOMO SAVANAH Start: 05-01-2018 DIET GENERAL GIACOMO SAVANAH Start: 05-01-2018 PULSE OXIMETRY, CONTINUOUS GIACOMO SAVANAH Start: 05-01-2018 IP CONSULT TO SOCIAL WORK GIACOMO SAVANAH Start: 05-01-2018 ACTIVITY TOLERATED B O SAVANAH Start: 05-01-2018 AMBULATE PATIENT GIACOMO SAVANAH Start: 05-01-2018 CATHETER REMOVAL GIACOMO SAVANAH Start: 05-01-2018 DAILY WEIGHTS GIACOMO SAVANAH Start: 05-01-2018 OT EVAL AND TREAT GIACOMO YO O Start: 05-01-2018 PT EVAL AND TREAT GIACOMO YO O Start: 05-01-2018 PULSE OXIMETRY, CONTINUOUS GIACOMO SAVANAH Start: 05-01-2018 INCENTIVE SPIROMETRY RT GIACOMO SAVANAH Start: 04-30-2018 HOME BIPAP OR CPAP GIACOMO Y OO Start: 04-30-2018 PLACE INTERMITTENT PNEUMATIC COMPRESSION DEVICE GIACOMO SAVANAH Start: 04-30-2018 INCENTIVE SPIROMETRY RT GIACOMO SAVANAH Start: 04-30-2018 INITIATE OXYGEN THER APY PROTOCOL GIACOMO SAVANAH Start: 04-30-2018 NEURO/VASCULAR CHECKS B O SAVANAH Start: 04-30-2018 PULSE OXIMETRY, CONTINUOUS GIACOMO SAVANAH Start: 04-30-2018 TOBACCO CESSATION EDUCATION GIACOMO SAVANAH Start: 04-30-2018 WOUND CARE GIACOMO SAVANAH Start: 04-30-2018 ADVANCE DIET TOLE RATED (NURSING COMMUNICATION) GIACOMO SAVANAH Start: 04-30-2018 ELEVATE HOB GIACOMO SAVANAH Start: 04-30-2018 FULL CODE GIACOMO SAVANAH Start: 04-30-2018 INTAKE AND OUTPUT GIACOMO YO O Start: 04-30-2018 NOTIFY PHYSICIAN (SPECIFY) GIACOMO SAVANAH Start: 04-30-2018 TELEMETRY MONITORING GIACOMO SAVANAH Start: 04-30-2018 VITAL SIGNS GIACOMO SAVANAH Start: 04-30-2018 Comprehensive metabo lic panel GIACOMO SAVANAH Start: 04-30-2018 Blood count complete automated GIACOMO SAVANAH Start: 04-30-2018 TRANSFER PATIENT GIACOMO SAVANAH Start: 04-30-2018 PATIENT STATUS (FROM ED OR OR/PROCEDURAL) GIACOMO SAVANAH Start: 04-30-2018 FLUORO FOR SURGICAL PROCEDURES GIACOMO SAVANAH Start: 04-30-2018 Drug tst prsmv instr mnt chem analyzers pr date GIACOMO SAVANAH Start: 04-30-2018 ANTIBODY IDENTIFICATION GIACOMO SAVANAH Start: 04-30-2018 DIRECT ANTIGLOBULIN TEST GIACOMO SAVANAH Start: 04-30-2018 PREPARE RBC (CROSSMATCH) GIACOMO SAVANAH Start: 04-30-2018 TYPE AND SCREEN GIACOMO SAVANAH Arthroscopy of shoulder Esdras aejosef NILL Lumbar spinal fusion Bill NILL Lumbar spinal fusion Bill NILL Operative procedure on knee Referring Provider Unknown Repair of left ingui nal hernia Bill NILL Repair of meniscus Bill Juan Jose ZARAGOZA Repair of right ingu inal hernia Bill NILL Repair of shoulder Referring Provider Unknown Spinal arthrodesis Referring Provider Unknown Plan of Treatment Date Care Activity Detail Author Start: 04-09-2033 Screening for malign ant neoplasm of colon [facility] Start: 07-29-2025 Diabetes mellitus screening Diabetes Screening [facility] Start: 01-11-2024 COVID-19 Vaccine ( season) COVID-19 Vaccine ( season) [facility] Start: 01-11-2024 Influenza vaccination Influenza Vacc ine (#1) [facility] Start: 2022 Pneumococcal vaccination Pneumococcal Vaccine (1 of 1 - PCV) [facility] Start: 2022 Zoster Vaccines (1 o f 2) Zoster Vaccines (1 of 2) [facility] Start: 01-12-2021 FUV, Provider: Carter Dangelo, Status: Pen, Time: 1:30 PM FUV, Provider: Carter Dangelo, Status: Pen, Time: 1:30 PM [facility] [...] Pen, Time: 11:30 AM PFT, Provider: JAZZMINE SAUCEDO FLR PFT RM1,PULM, Status: Pen, Time: 11:30 AM [facility] Work Phone: Start: 12-15-2020 ECHO, Provider: KARISHMA HHVI,MG CARD, Status: Pen, Time: 2:00 PM ECHO, Provider: KARISHMA HHVI,MG CARD, Status: Pen, Time: 2:00 PM [facility] Work Phone: Start: 1994 DTaP/Tdap/Td Vaccine s (1 - Tdap) DTaP/Tdap/Td Vaccines (1 - Tdap) [facility] Start: 10-05-1991 Hepatitis A Vaccines (1 of 2 - Risk 2-dose series) Hepatitis A Vaccines (1 of 2 - Risk 2-dose series) [facility] Start: 10-05-1991 Hepatitis B Vaccines (1 of 3 - 19+ 3-dose series) Hepatitis B Vaccines (1 of 3 - 19+ 3-dose series) [facility] Start: 1990 Hepatitis C screening Hepatitis C [facility] Start: 1973 MMR Vaccines (1 of 1 - Standard series) MMR Vaccines (1 of 1 - Standard series) [facility] Start: 1972 Lipid panel Lipid Panel [facility] Start: 1972 Screening for malign ant neoplasm of colon [facility] Start: 1972 Yearly Adult Physical Yearly Adult P hysical [facility] Calculi (Stone) Analysis [facility] Service Area Work Phone: Comment on above: Release Upon Eduardoin g for 1 Occurrences starting 07/29/2024 End: 07-29-2024 Guidance for dilation of existing nephrostomy tract and placement of nephrostomy tube at new site of Kidney [facility] Service Area Work Phone: Comment on above: Once for 1 Occurrenc es starting 07/29/2024 until 07/29/2024 End: 07-29-2024 Incentive spirometry Instruct Incentive spirometry Instruct Respiratory Care Routine Once for 1 Occurrences starting 07/29/2024 until 07/29/2024 [facility] Work Phone: Comment on above: Once for 1 Occurrenc es starting 07/29/2024 until 07/29/2024 End: 07-29-2024 Noninvasive Ventilation Patient to use: At night; Mode: CPAP; Ventilation type: CPAP; PEEP/CPAP (cm H2O): 10 Noninvasive Ventilation Patient to use: At night; Mode: CPAP; Ventilation type: CPAP; PEEP/CPAP (cm H2O): 10 Respiratory Care Routine Continuous until discontinued starting 07/29/2024 [facility] Service Area Work Phone: Comment on above: Continuous until dis continued starting 07/29/2024 End: 07-29-2024 US Guidance for fluid aspiration of Unspecified body region [facility] Service Area Work Phone: Comment on above: Once for 1 Occurrenc es starting 07/29/2024 until 07/29/2024 Immunizations Immunization Date Immunization Notes Care Provider Fa cility 09-18-2020 Pfizer-BioNTech COVI D-19 Vacc 30 MCG/0.3ML Intramuscular Suspension Referring Provider Unknown [facility] 08-28-2020 Pfizer-BioNTech COVI D-19 Vacc 30 MCG/0.3ML Intramuscular Suspension Referring Provider Unknown [facility] Payers Date Payer Category Payer Managed Care (Private) [facility] [employer] (P) [id number] 2017 Unknown [id number] 1972 Unknown [id number]. 2.182 1972 Unknown [id number] [id number]. 2.182 1972 Unknown [id number] [id number]. 2.182 1972 Unknown [id number] 2.16.840.1.111971.3.579. 2.593 1972 Unknown [id number] 2.16.840.1.220473.3.579. 2.593 1972 Unknown [id number] 2.16.840.1.180401.3.579. 2.727 1972 Unknown [id number] 2.16.840.1.570831.3.579. 2.727 1972 Unknown [id number] [id number]. 2.727 1972 Unknown [id number] 2.16.840.1.839264.3.579. 2.1243 1972 Unknown [id number] [id number]. 2.1243 1972 Unknown [id number] 2.16.840.1.398638.3.579. 2.124 1972 Unknown [id number] [id number]. 2.124 1972 Unknown [id number] [id number]. 2.1243 1959 Unknown [id number] Unknown Social History Date Type Detail Facility Start: 07-29-2024 End: 07-30-2024 Never a smoker Never a smoker [facility] Start: 07-29-2024 End: 07-30-2024 Sex Assigned At [facility] Start: 02-11-2023 End: 07-19-2024 Tobacco smoking status Never smoked tobacco (finding) [facility] Tobacco smoking status Never [facility] Start: 07-19-2024 Tobacco use and exposure Smokeless tobacco non-user [facility] Work Phone: Start: 07-29-2024 Alcoholic beverage intake Current drinker of alcohol (finding) [facility] Work Phone: Has the [place], gas, oil, or water [employer] threatened to shut off services in your home in past 12Mo No [facility] Work Phone: Are you now , , , , never or living with a partner? [facility] Work Phone: How often to you hav e a drink containing alcohol? Monthly or less [facility] Work Phone: How many standard drinks containing alcohol do you have on a typical day? 1 or 2 [facility] Work Phone: How often do you hav e 6 or more drinks on 1 occasion? Never [facility] Work Phone: Do you feel stress - tense, restless, nervous, or anxious, or unable to sleep at night because your mind is troubled all the time - these days [OSQ] Not at all [facility] Work Phone: (I/We) worried whether (my/our) food would run out before (I/we) got money to buy more. Never true [facility] Work Phone: Start: 07-19-2024 Alcohol Comment 4-5 drinks/year [facility] Work Phone: Start: 1972 Sex assigned at Not on file [facility] Work Phone: Start: 07-29-2024 Sexual orientation Heterosexual (mario chacon) [facility] Start: 07-19-2024 End: 07-29-2024 Exposure to SARS-CoV-2 (event) Not sure [facility] NEGATED: Highlighted row - - [facility] Work Phone: Medical Equipment Procedure Code Equipment Code Equipment Origin al Text Equipment Identifier Dates Stent, Ureteral Contour, 6fr X 28cm - [id number] Start: 07-29-2024 Stent, Ureteral Percuflex 6 X 28 - [id number] Start: 07-29-2024 Functional Status Date Assessment Result Facility 05-24-2024 Functional Status N/A [facility] 03-30-2024 Functional Status N/A [facility] 02-11-2023 Functional Status N/A [facility] NEGATED: Highlighted row Functional performance Functional status health issues are not documented Disease [facility] Work Phone: Mental Status Date Assessment Result Facility NEGATED: Highlighted row Cognitive function [Interpretation] Cognitive status health issues are not documented Disease [facility] Work Phone: Clinical Notes 11-22-2020 to 07-30-2024 Mar Downing RN - 07/30/2024 10:24 AM Yojana Durbin MD - 07/30/2024 9:16 AM EDTElmer Silva RN - 07/30/2024 6:30 AM Andria Silva RN - 07/30/2024 6:30 AM EDT Note Date & Type Note Facility 07-30-2024 History of Present illness Narrative 07/30/24 1024 Discharge Planning Living Arrangements Spouse/significant other Support Systems Spouse/significant other Assistance Needed none Type of Residence Private residence Home or Post Acute Services None Expected Discharge Disposition Home Does the patient need discharge transport arranged? No Financial Resource Strain How hard is it for you to pay for the very basics like food, housing, medical care, and heating? Not hard Housing Stability In the last 12 months, was there a time when you were not able to pay the mortgage or rent on time? N At any time in the past 12 months, were you homeless or living in a residential (including now)? N Transportation Needs In the past 12 months, has lack of transportation kept you from medical appointments or from getting medications? no In the past 12 months, has lack of transportation kept you from meetings, work, or from getting things needed for daily living? No Intensity of Service Intensity of Service 0-30 min Spoke to patient at bedside to explain my role in discharge planning. Patient states he lives at home with his spouse. PCP is Dr Zuñiga. He uses [facility] in [place] for prescriptions. Patient feels he effectively manages his health at home and plans to return home when medically ready. documented in this encounter [facility] Work Phone: 07-30-2024 Hospital course Narrative Discharge Diagnosis Right kidney stone Issues Requiring Follow-Up Return for retrograde ureteroscopy with attempted incision of infundibular stenosis. Test Results Pending At Discharge Pending Labs Order Current Status Calculi (Stone) Analysis In process Hospital Course Patient underwent right mini percutaneous nephrolithotomy 07/29/2024 without complication. He was monitored overnight following the procedure. On postoperative day 1, his pain was well-controlled and hemoglobin was stable. He ambulated without issue and tolerated regular diet. His Verdin catheter was removed and he voided without difficulty. With the patient doing well on postoperative day 1, he was discharged home in good condition. 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 Pertinent Physical Exam At Time of Discharge Physical Exam NAD AOx3 Peripheral pulses palpable Regular rhythm Respirations nonlabored Soft, NT, ND Verdin in place-light pink urine Home Medications Medication List START taking these medications cephalexin 500 mg capsule; Commonly known as: Keflex; Take 1 capsule (500 mg) by mouth 3 times a day for 3 days. oxyCODONE 5 mg immediate release tablet; Commonly known as: Roxicodone; Take 1 tablet (5 mg) by mouth every 6 hours if needed for severe pain (7 - 10) for up to 3 days. CONTINUE taking these medications fenofibrate 160 mg tablet; Commonly known as: Triglide irbesartan 150 mg tablet; Commonly known as: Avapro metFORMIN 500 mg tablet; Commonly known as: Glucophage metoprolol tartrate 100 mg tablet; Commonly known as: Lopressor oxaprozin 600 mg tablet; Commonly known as: Daypro PARoxetine 40 mg tablet; Commonly known as: Paxil simvastatin 40 mg tablet; Commonly known as: Zocor SUMAtriptan 100 mg tablet; Commonly known as: Imitrex tamsulosin 0.4 mg 24 hr capsule; Commonly known as: Flomax; Take 2 capsules (0.8 mg) by mouth once daily. 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 Sofie Durbin. Call for further scheduling information next week. Patient may not drive while on narcotic pain medications. Patient may shower. Patient may resume a regular diet. Do not lift greater than 20 pounds for 2 weeks. documented in this encounter [facility] Work Phone: 07-30-2024 Nurse Note Pt. Slept at short intervals. Pain has been controlled w/ scheduled tylenol 650mg RTC.verdin draining ovalle red to pink urine. S. Trevon/med house was informed that urine still pink ask if it's ok to remove the verdin at 0600 as ordered by urologist. Said to hold off for now and pass it on day shift to reach out to durbin. Pass it to Jaimee to check with Dr. Durbin remove if its ok to removed the verdin. Used c pap at hs.I instructed to use incentive spirometry this shift and pt. Did well volume up to 1500ml. [facility] Work Phone: 07-30-2024 Nurse Note Pt. Slept at short intervals. Pain has been controlled w/ scheduled tylenol 650mg RTC.verdin draining ovalle red to pink urine. S. Trevon/med house was informed that urine still pink ask if it's ok to remove the verdin at 0600 as ordered by urologist. Said to hold off for now and pass it on day shift to reach out to durbin. Pass it to Jaimee to check with Dr. Durbin remove if its ok to removed the verdin. Used c pap at hs.I instructed to use incentive spirometry this shift and pt. Did well volume up to 1500ml. documented in this encounter [facility] Work Phone: 07-30-2024 Plan of care note The patient's goals for the shift include GET SOME RES The clinical goals for the shift include PAIN CONTROL Problem: Pain - Adult Goal: Verbalizes/displays adequate comfort level or baseline comfort level Outcome: Progressing Problem: Safety - Adult Goal: Free from fall injury Outcome: Progressing Problem: Discharge Planning Goal: Discharge to home or other facility with appropriate resources Outcome: Progressing Problem: Nutrition Goal: Nutrient intake appropriate for maintaining nutritional needs Outcome: Progressing Problem: Fall/Injury Goal: Not fall by end of shift Outcome: Progressing Goal: Be free from injury by end of the shift Outcome: Progressing Goal: Verbalize understanding of personal risk factors for fall in the hospital Outcome: Progressing Goal: Verbalize understanding of risk factor reduction measures to prevent injury from fall in the home Outcome: Progressing Goal: Use assistive devices by end of the shift Outcome: Progressing Problem: Pain Goal: Takes deep breaths with improved pain control throughout the shift Outcome: Progressing Goal: Turns in bed with improved pain control throughout the shift Outcome: Progressing Goal: Walks with improved pain control throughout the shift Outcome: Progressing Goal: Performs ADL's with improved pain control throughout shift Outcome: Progressing Goal: Free from opioid side effects throughout the shift Outcome: Progressing Goal: Free from acute confusion related to pain meds throughout the shift Outcome: Progressing Problem: Respiratory Goal: Clear secretions with interventions this shift Outcome: Progressing Goal: Minimize anxiety/maximize coping throughout shift Outcome: Progressing Goal: Minimal/no exertional discomfort or dyspnea this shift Outcome: Progressing Goal: No signs of respiratory distress (eg. Use of accessory muscles. Peds grunting) Outcome: Progressing Goal: Patent airway maintained this shift Outcome: Progressing Goal: Tolerate mechanical ventilation evidenced by VS/agitation level this shift Outcome: Progressing Goal: Tolerate pulmonary toileting this shift Outcome: Progressing Goal: Verbalize decreased shortness of breath this shift Outcome: Progressing Goal: Wean oxygen to maintain O2 saturation per order/standard this shift Outcome: Progressing [facility] Work Phone: 07-30-2024 Miscellaneous Notes The patient's goals for the shift include GET SOME RES The clinical goals for the shift include PAIN CONTROL Problem: Pain - Adult Goal: Verbalizes/displays adequate comfort level or baseline comfort level Outcome: Progressing Problem: Safety - Adult Goal: Free from fall injury Outcome: Progressing Problem: Discharge Planning Goal: Discharge to home or other facility with appropriate resources Outcome: Progressing Problem: Nutrition Goal: Nutrient intake appropriate for maintaining nutritional needs Outcome: Progressing Problem: Fall/Injury Goal: Not fall by end of shift Outcome: Progressing Goal: Be free from injury by end of the shift Outcome: Progressing Goal: Verbalize understanding of personal risk factors for fall in the hospital Outcome: Progressing Goal: Verbalize understanding of risk factor reduction measures to prevent injury from fall in the home Outcome: Progressing Goal: Use assistive devices by end of the shift Outcome: Progressing Problem: Pain Goal: Takes deep breaths with improved pain control throughout the shift Outcome: Progressing Goal: Turns in bed with improved pain control throughout the shift Outcome: Progressing Goal: Walks with improved pain control throughout the shift Outcome: Progressing Goal: Performs ADL's with improved pain control throughout shift Outcome: Progressing Goal: Free from opioid side effects throughout the shift Outcome: Progressing Goal: Free from acute confusion related to pain meds throughout the shift Outcome: Progressing Problem: Respiratory Goal: Clear secretions with interventions this shift Outcome: Progressing Goal: Minimize anxiety/maximize coping throughout shift Outcome: Progressing Goal: Minimal/no exertional discomfort or dyspnea this shift Outcome: Progressing Goal: No signs of respiratory distress (eg. Use of accessory muscles. Peds grunting) Outcome: Progressing Goal: Patent airway maintained this shift Outcome: Progressing Goal: Tolerate mechanical ventilation evidenced by VS/agitation level this shift Outcome: Progressing Goal: Tolerate pulmonary toileting this shift Outcome: Progressing Goal: Verbalize decreased shortness of breath this shift Outcome: Progressing Goal: Wean oxygen to maintain O2 saturation per order/standard this shift Outcome: Progressing Was notified by RN that patient's urine remains ovalle red/pink in color this morning, there is an order to remove Verdin at 0600, but due to continued hematuria will have to confirm with urology in the morning if verdin should be removed. Verdin to remain in place for the time being until verified with Urology [facility] INSPECTOR/PA or Dr. Durbin in the morning. Operative Note Location: [place], [place] Date: 07/29/2024 Jerry Wilson [id number] Surgeon: Sofie Durbin MD Label Maker: None Pre-operative diagnosis: Right nephrolithiasis, calyceal diverticulum Post-operative diagnosis: Right nephrolithiasis, calyceal diverticulum Procedure performed: Right percutaneous nephrolithotomy for stone less than 2 cm, right antegrade nephrostogram, right antegrade stent placement Anesthesia: General Estimated blood loss: 100 mL Complications: none Specimens: Right renal stones for analysis Drains: Right 6 x 28 double-J ureteral stent Indications: Jerry Wilson is a 53 y.o. male who presented with a 19 mm right renal pelvic calculus and a 3 cm right lower pole stone within a calyceal diverticulum. He elected for right percutaneous nephrolithotomy to treat his right-sided stone burden. Interventional radiology attempted to gain access to the calyceal diverticulum but were unable to advance a guidewire through the infundibulum and into the remainder of the collecting system. Therefore access was obtained above the 11th rib to the upper pole of the kidney. Operative summary: The risks and benefits of the procedure explained to the patient in the preoperative area and after informed consent was obtained the patient was taken back to the operative room. General anesthesia was induced on the patient's transport stretcher. He was then transferred to the operating table and placed in the prone position. All pressure points were padded. EPC cuffs were on and functioning prior to induction of anesthesia. The patient received intravenous Ancef prior to the procedure. The patient was prepped and draped in a sterile fashion and a time-out was performed to confirm patient identity, procedure, and laterality. A guidewire was advanced through the nephroureteral catheter down to the level of the bladder. The nephroureteral catheter was removed and the skin was incised adjacent to the wire using a 15 blade scalpel. A second guidewire was placed with the assistance of a dual lumen catheter. Antegrade nephrostogram was performed through the dual-lumen catheter to outline the collecting system. Due to the intercostal access, prior to dilating the tract up to 30 Somali I decided to begin with a mini percutaneous nephrolithotomy to begin treating the renal pelvic stone and assure that the the os of the infundibulum could be accessed from the upper pole nephrostomy. A 13/15 x 28 cm access sheath was advanced over the guidewire and into the collecting system under fluoroscopy. A flex ureteroscope was advanced through the sheath and into the collecting system. Visualization was obscured by blood in the urine. Identified the large renal pelvic calculus. I was unable to visualize the os of the narrowed infundibulum. Using a 365 m laser fiber, the stone was dusted and fragmented into smaller pieces. Numerous fragments were removed using a 0 tip basket. After extensive basketing was performed, no large fragments appear to remain in the collecting system. There was Was advanced down to the proximal ureter and any fragments that it passed into the ureter were removed using the basket. I believe I visualized the narrowed infundibulum in the lower pole at this time, but I was unable to advance the scope to good position where this infundibulum could be incised due to the acute angle. The decision was made to conclude the procedure and return for a retrograde attempt at incision of the stenosed infundibulum and treatment of the calyceal diverticulum stone. A 6 x 28 double-J ureteral stent was advanced over the guidewire and down to the bladder under fluoroscopy. The guidewire was removed and a good distal curl was seen on fluoroscopy. The ureteroscope was reinserted and a good proximal curl was visualized in the renal pelvis. This was confirmed on fluoroscopy. Minimal active bleeding was noted. The ureteroscope and access sheath were removed. The skin incision was closed using 2 deep dermal stitches with 4-0 Vicryl suture followed by skin glue. The patient was awoken and transferred to PACU. All instruments and equipment were accounted for at the end of the procedure. Disposition: Patient was transferred to PACU in good condition. He will be monitored overnight. 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 Sofie Durbin MD, MD 07/29/2024 6:50 PM documented in this encounter [facility] Work Phone: 07-30-2024 Plan of care note Was notified by RN that patient's urine remains ovalle red/pink in color this morning, there is an order to remove Verdin at 0600, but due to continued hematuria will have to confirm with urology in the morning if verdin should be removed. Verdin to remain in place for the time being until verified with Urology BEDSPREAD INSPECTOR/PA or Dr. Durbin in the morning. [facility] Work Phone: 07-29-2024 Surgery Surgical operation note [place]ative [place] [facility] [place] Date: 07/29/2024 Jerry Wilson [id number] Surgeon: Sofie Durbin MD Label Maker: None Pre-operative diagnosis: Right nephrolithiasis, calyceal diverticulum Post-operative diagnosis: Right nephrolithiasis, calyceal diverticulum Procedure performed: Right percutaneous nephrolithotomy for stone less than 2 cm, right antegrade nephrostogram, right antegrade stent placement Anesthesia: General Estimated blood loss: 100 mL Complications: none Specimens: Right renal stones for analysis Drains: Right 6 x 28 double-J ureteral stent Indications: Jerry Wilson is a 53 y.o. male who presented with a 19 mm right renal pelvic calculus and a 3 cm right lower pole stone within a calyceal diverticulum. He elected for right percutaneous nephrolithotomy to treat his right-sided stone burden. Interventional radiology attempted to gain access to the calyceal diverticulum but were unable to advance a guidewire through the infundibulum and into the remainder of the collecting system. Therefore access was obtained above the 11th rib to the upper pole of the kidney. Operative summary: The risks and benefits of the procedure explained to the patient in the preoperative area and after informed consent was obtained the patient was taken back to the operative room. General anesthesia was induced on the patient's transport stretcher. He was then transferred to the operating table and placed in the prone position. All pressure points were padded. EPC cuffs were on and functioning prior to induction of anesthesia. The patient received intravenous Ancef prior to the procedure. The patient was prepped and draped in a sterile fashion and a time-out was performed to confirm patient identity, procedure, and laterality. A guidewire was advanced through the nephroureteral catheter down to the level of the bladder. The nephroureteral catheter was removed and the skin was incised adjacent to the wire using a 15 blade scalpel. A second guidewire was placed with the assistance of a dual lumen catheter. Antegrade nephrostogram was performed through the dual-lumen catheter to outline the collecting system. Due to the intercostal access, prior to dilating the tract up to 30 Somali I decided to begin with a mini percutaneous nephrolithotomy to begin treating the renal pelvic stone and assure that the the os of the infundibulum could be accessed from the upper pole nephrostomy. A 13/15 x 28 cm access sheath was advanced over the guidewire and into the collecting system under fluoroscopy. A flex ureteroscope was advanced through the sheath and into the collecting system. Visualization was obscured by blood in the urine. Identified the large renal pelvic calculus. I was unable to visualize the os of the narrowed infundibulum. Using a 365 m laser fiber, the stone was dusted and fragmented into smaller pieces. Numerous fragments were removed using a 0 tip basket. After extensive basketing was performed, no large fragments appear to remain in the collecting system. There was Was advanced down to the proximal ureter and any fragments that it passed into the ureter were removed using the basket. I believe I visualized the narrowed infundibulum in the lower pole at this time, but I was unable to advance the scope to good position where this infundibulum could be incised due to the acute angle. The decision was made to conclude the procedure and return for a retrograde attempt at incision of the stenosed infundibulum and treatment of the calyceal diverticulum stone. A 6 x 28 double-J ureteral stent was advanced over the guidewire and down to the bladder under fluoroscopy. The guidewire was removed and a good distal curl was seen on fluoroscopy. The ureteroscope was reinserted and a good proximal curl was visualized in the renal pelvis. This was confirmed on fluoroscopy. Minimal active bleeding was noted. The ureteroscope and access sheath were removed. The skin incision was closed using 2 deep dermal stitches with 4-0 Vicryl suture followed by skin glue. The patient was awoken and transferred to PACU. All instruments and equipment were accounted for at the end of the procedure. Disposition: Patient was transferred to PACU in good condition. He will be monitored overnight. 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 Sofie Durbin MD, MD 07/29/2024 6:50 PM [facility] Work Phone: 07-29-2024 Attending History and physical note H&P reviewed. The patient was examined. Noted right upper extremity upon presentation this morning, but this has resolved. Denies pain in the upper extremities. Patient reports significant pain over the site of his nephrostomy tube and has hypertension. Hypertension currently similar to admission at approximately 193/95. Elects to proceed due to frequent pain accompanied by loose stools attributed to pain. IR films reviewed and discussed with Dr. Galloway. Access obtained between the 11th and 12th ribs to upper pole. Source Note - Natalia To APRN-LEAD ELECTRICIAN - 07/19/2024 9:45 AM EDT Images from the original note were not included. CPM/PAT Evaluation Name: Jerry Wilson (Jerry Wilson) /Age: 510/04/1970/53 y.o. In-Person Chief Complaint: Urinary concerns HPI Pleasant 53 y/o male presents with calculus of kidney scheduled for nephrolithotomy percutaneous w/ homium laser, neph tube placement in I.R on 07/29/24. States that he has had this stone for a few years . Endorses frequent UTIs, hematuria, dysuria and flank pain. Denies recent fever/illness/chills. Past Medical History: Diagnosis Date Adverse effect of anesthesia combative postop Hypertension Nephrolithiasis Personal history of other diseases of the circulatory system History of hypertension Sleep apnea Type 2 diabetes mellitus Past Surgical History: Procedure Laterality Date OTHER SURGICAL HISTORY 11/22/2020 Vertebral fusion OTHER SURGICAL HISTORY 11/22/2020 Knee surgery OTHER SURGICAL HISTORY 11/22/2020 Shoulder surgery Patient has no history on file for sexual activity. Family History Problem Relation Name Age of Onset Hypertension Mother Hypertension Father No Known Allergies Prior to Admission medications Medication Sig Start Date End Date Taking? Authorizing Provider fenofibrate (Triglide) 160 mg tablet Take 1 tablet (160 mg) by mouth once daily. Historical Provider, irbesartan (Avapro) 150 mg tablet Take 1 tablet (150 mg) by mouth once daily. Historical Provider, metoprolol tartrate (Lopressor) 100 mg tablet Take 1 tablet (100 mg) by mouth 2 times a day. Historical Provider, oxaprozin (Daypro) 600 mg tablet Take 2 tablets (1,200 mg) by mouth once daily. Historical Provider, PARoxetine (Paxil) 40 mg tablet Take 1.5 tablets (60 mg) by mouth once daily in the morning. Historical Provider, simvastatin (Zocor) 40 mg tablet Take 1 tablet (40 mg) by mouth once daily in the evening. Historical Provider, SUMAtriptan (Imitrex) 100 mg tablet Take 1 tablet (100 mg) by mouth 1 time if needed for migraine. May repeat an additional dose after 2 hours Historical Provider, tamsulosin (Flomax) 0.4 mg 24 hr capsule Take 2 capsules (0.8 mg) by mouth once daily. Historical Provider, tiZANidine (Zanaflex) 4 mg capsule Take 1 capsule (4 mg) by mouth once daily at bedtime. Historical Provider, Constitutional: Negative for fever, chills, or sweats ENMT: Negative for nasal discharge, congestion, ear pain, mouth pain, throat pain. Positive for poor vision. Respiratory: Negative for cough, wheezing, shortness of breath Cardiac: Negative for chest pain, dyspnea on exertion, palpitations Gastrointestinal: Negative for nausea, vomiting, diarrhea, constipation, abdominal pain Genitourinary: Negative for dysuria, flank pain, frequency, hematuria. See HPI Musculoskeletal: Negative for decreased ROM, pain, swelling, weakness Neurological: Negative for dizziness, confusion, headache Psychiatric: Negative for mood changes Skin: Negative for itching, rash, ulcer Hematologic/Lymph: Negative for bruising, easy bleeding Allergic/Immunologic: Negative itching, sneezing, swelling Physical Exam Vitals reviewed. Constitutional: Appearance: Normal appearance. He is obese. HENT: Head: Normocephalic. Mouth/Throat: Mouth: Mucous membranes are moist. Pharynx: Oropharynx is clear. Eyes: Pupils: Pupils are equal, round, and reactive to light. Neck: Comments: Thick Cardiovascular: Rate and Rhythm: Normal rate and regular rhythm. Heart sounds: Normal heart sounds. Pulmonary: Effort: Pulmonary effort is normal. Breath sounds: Normal breath sounds. Abdominal: General: Bowel sounds are normal. Palpations: Abdomen is soft. Musculoskeletal: General: Normal range of motion. Cervical back: Normal range of motion. Skin: General: Skin is warm and dry. Comments: Scattered scabs on head Neurological: General: No focal deficit present. Mental Status: He is alert and oriented to person, place, and time. Psychiatric: Mood and Affect: Mood normal. Behavior: Behavior normal. PAT AIRWAY: Airway: Mallampati:: II Neck ROM:: Limited normal Testing/Diagnostic: Echo from 2020: CONCLUSIONS: 1. The left ventricular systolic function is normal with a 60% estimated ejection fraction. 2. Poorly visualized anatomical structures due to suboptimal image quality. 3. Aortic valve stenosis is not present. Patient Specialist/PCP: PCP: Dr. Zuñiga Visit Vitals BP (!) 166/104 Pulse 73 Temp 36.8 C (98.2 F) (Temporal) Resp 18 Ht 1.778 m (5' 10 ) Wt (!) 170 kg (375 lb 12.8 oz) SpO2 96% BMI 53.92 kg/m Smoking Status Never BSA 2.9 m DASI Risk Score Flowsheet Row Pre-Admission Testing from 07/19/2024 in [facility] [place] Can you take care of yourself (eat, dress, bathe, or use toilet)? 2.75 filed at 07/19/2024 1007 Can you walk indoors, such as around your house? 1.75 filed at 07/19/2024 1007 Can you walk a block or two on level ground? 2.75 filed at 07/19/2024 1007 Can you climb a flight of stairs or walk up a hill? 5.5 filed at 07/19/2024 1007 Can you run a short distance? 8 filed at 07/19/2024 1007 Can you do light work around the house like dusting or washing dishes? 2.7 filed at 07/19/2024 1007 Can you do moderate work around the house like vacuuming, sweeping floors or carrying groceries? 3.5 filed at 07/19/2024 1007 Can you do heavy work around the house like scrubbing floors or lifting and moving heavy furniture? 8 filed at 07/19/2024 1007 Can you do yard work like raking leaves, weeding or pushing a mower? 4.5 filed at 07/19/2024 1007 Can you have sexual relations? 5.25 filed at 07/19/2024 1007 Can you participate in moderate recreational activities like golf, bowling, dancing, doubles tennis or throwing a baseball or football? 0 filed at 07/19/2024 1007 Can you participate in strenous sports like swimming, singles tennis, football, basketball, or skiing? 0 filed at 07/19/2024 1007 DASI SCORE 44.7 filed at 07/19/2024 1007 METS Score (Will be calculated only when all the questions are answered) 8.2 filed at 07/19/2024 1007 Caprini DVT Assessment Flowsheet Row Pre-Admission Testing from 07/19/2024 in [facility] [place] DVT Score (IF A SCORE IS NOT CALCULATING, MUST SELECT A BMI TO COMPLETE) 6 filed at 07/19/2024 1007 Surgical Factors Major surgery planned, including arthroscopic and laproscopic (1-2 hours) filed at 07/19/2024 1007 BMI (BMI MUST BE CHOSEN) Greater than 50 (Venous stasis syndrome) filed at 07/19/2024 1007 Modified Frailty Index Flowsheet Row Pre-Admission Testing from 07/19/2024 in [facility] [place] Non-independent functional status (problems with dressing, bathing, personal grooming, or cooking) 0 filed at 07/19/2024 1009 History of diabetes mellitus 0.0909 filed at 07/19/2024 1009 History of COPD 0 filed at 07/19/2024 1009 History of CHF No filed at 07/19/2024 1009 History of VT 0 filed at 07/19/2024 1009 History of Percutaneous Coronary Intervention, Cardiac Surgery, or Angina No filed at 07/19/2024 1009 Hypertension requiring the use of medication 0.0909 filed at 07/19/2024 1009 Peripheral vascular disease 0 filed at 07/19/2024 1009 Impaired sensorium (cognitive impairement or loss, clouding, or delirium) 0 filed at 07/19/2024 1009 TIA or CVA withouy residual deficit 0 filed at 07/19/2024 1009 Cerebrovascular accident with deficit 0 filed at 07/19/2024 1009 Modified Frailty Index Calculator .1818 filed at 07/19/2024 1009 [id number] Stroke Risk Points Current as of just now N/A 0 to 9 Points: Last Change: N/A The [id number] risk score (Lip WALLY, et al. 2009. 2010 [employer]) quantifies the risk of stroke for a patient with atrial fibrillation. For patients without atrial fibrillation or under the age of 18 this score appears as N/A. Higher score values generally indicate higher risk of stroke. This score is not applicable to this patient. Components are not calculated. Revised Cardiac Risk Index Flowsheet Row Pre-Admission Testing from 07/19/2024 in [facility] [place] High-Risk Surgery (Intraperitoneal, Intrathoracic,Suprainguinal vascular) 0 filed at 07/19/2024 1007 History of ischemic heart disease (History of VT, History of positive exercuse test, Current chest paint considered due to myocardial ischemia, Use of nitrate therapy, ECG with pathological Q Waves) 0 filed at 07/19/2024 1007 History of congestive heart failure (pulmonary edemia, bilateral rales or S3 gallop, Paroxysmal nocturnal dyspnea, CXR showing pulmonary vascular redistribution) 0 filed at 07/19/2024 1007 History of cerebrovascular disease (Prior TIA or stroke) 0 filed at 07/19/2024 1007 Pre-operative insulin treatment 0 filed at 07/19/2024 1007 Pre-operative creatinine>2 mg/dl 0 filed at 07/19/2024 1007 Revised Cardiac Risk Calculator 0 filed at 07/19/2024 1007 Apfel Simplified Score Flowsheet Row Pre-Admission Testing from 07/19/2024 in [facility] [place] Smoking status 1 filed at 07/19/2024 1008 History of motion sickness or PONV 0 filed at 07/19/2024 1008 Use of postoperative opioids 1 filed at 07/19/2024 1008 Gender - Female 0=No filed at 07/19/2024 1008 Apfel Simplified Score Calculator 2 filed at 07/19/2024 1008 Risk Analysis Index Results This Encounter 07/19/2024 1009 Do you live in a place other than your own home?: 0 When did you begin living in the place you are currently residing?: Greater than one year ago Any kidney failure, kidney not working well, or seeing a kidney doctor (dormitory keeper)? If yes, was this for kidney stones or another problem?: 1 Kidney stones Any history of chronic (long-term) congestive heart failure (CHF)?: 0 No Any shortness of breath when resting?: 0 No In the past five years, have you been diagnosed with or treated for cancer?: No During the last 3 months has it become difficult for you to remember things or organize your thoughts?: 0 No Have you lost weight of 10 pounds or more in the past 3 months without trying?: 0 No Do you have any loss of appetitie?: 0 No Getting Around (Mobility): 0 Can get around without help Eatin Can plan and prepare own meals Toiletin Can use toilet without any help Personal Hygiene (Bathing, Hand Washing, Changing Clothes): 0 Can shower or bathe without any help DOUGLASS Cancer History: Patient does not indicate history of cancer Total Risk Analysis Index Score Without Cancer: 18 Total Risk Analysis Index Score: 18 Stop Bang Score Flowsheet Row Pre-Admission Testing from 07/19/2024 in [facility] [place] Do you snore loudly? 0 filed at 07/19/2024 1007 Do you often feel tired or fatigued after your sleep? 1 filed at 07/19/2024 1007 Has anyone ever observed you stop breathing in your sleep? 1 filed at 07/19/2024 1007 Do you have or are you being treated for high blood pressure? 1 filed at 07/19/2024 1007 Recent BMI (Calculated) 53.9 filed at 07/19/2024 1007 Is BMI greater than 35 kg/m2? 1=Yes filed at 07/19/2024 1007 Age older than 50 years old? 1=Yes filed at 07/19/2024 1007 Is your neck circumference greater than 17 inches (Male) or 16 inches (Female)? 0 filed at 07/19/2024 1007 Gender - Male 1=Yes filed at 07/19/2024 1007 STOP-BANG Total Score 6 filed at 07/19/2024 1007 Prodigy: High Risk Total Score: 8 Prodigy Gender Score ARISCAT Score for Postoperative Pulmonary Complications Flowsheet Row Pre-Admission Testing from 07/19/2024 in [facility] Age Calculated Score 3 filed at 07/19/2024 1009 Preoperative SpO2 0 filed at 07/19/20241008 Respiratory infection in the last month Either upper or lower (i.e., URI, bronchitis, pneumonia), with fever and antibiotic treatment 0 filed at 07/19/20241008 Preoperative anemia (Hgb less than 10 g/dl) 0 filed at 07/19/20241008 Surgical incision 0 filed at 07/19/20241008 Duration of surgery 16 filed at 07/19/20241008 Shukri Perioperative Risk for Myocardial Infarction or Cardiac Arrest (NANCY) Flowsheet Row Pre-Admission Testing from 07/19/2024 in [facility] [place] Calculated Age Score 1.02 filed at 07/19/20241008 Functional Status 0 filed at 07/19/20241008 ASA Class -3.29 filed at 07/19/20241008 Creatinine 0 filed at 07/19/20241008 Type of Procedure -0.26 filed at 07/19/20241008 NANCY Total Score -7.78 filed at 07/19/20241008 NANCY % 0.04 filed at 07/19/20241008 Assessment and Plan: Assessment and Plan: Preop: OR with Dr. Durbin for nephrolithotomy, percutaneous with holmium laser, neph tube placement Labs ordered per Dr. Durbin. EKG obtained and enclosed. NSR. Left axis deviation. Comparable to prior EKG on file. Requested records from PCP as we have no recent medical history documented. Neurologic: Migraines: Has intermittently. Uses sumatriptan as needed The patient is at an increased risk for post operative delirium secondary to polypharmacy and type and duration of surgery . Preoperative brain exercise educational handout provided to patient. The patient is at an increased risk for perioperative stroke secondary to HTN, HLD, DM , and general anesthesia. Cardiac: Hypertension: Elevated today-states he did not take his BP meds this AM and he was stressed about the drive here ([place] 1[place] hours away). He is going to take his BP medications as soon as he gets home and recheck. He is asymptomatic Hyperlipidemia: On statin and fenofibrate Rojas Activity Status Index (DASI) DASI Score: 44.7 MET Score: 8.2 RCRI 0 which is 3.9% 30 day risk of MACE (risk for cardiac , nonfatal myocardial infarction, and nonfactal cardiac arrest) NANCY score which indicates a 0.04% risk of intraoperative or 30-day postoperative MACE Pulmonary: Sarcoidosis: Stable. Denies recent breathing concerns-states he has had in the past. CLEM: Uses CPAP STOP-BANG score of 6. High risk of obstructive sleep apnea. ARISCAT: 19 points which is a low (1.6%) risk of in-hospital post-op pulmonary complications Endocrine: DM: No medications noted for DM. A1c obtained today. GI: Apfel: 2 points 39% risk for post operative N/V /Renal: Kidney stone: Reason for upcoming procedure Psychiatric: Depression: Stable with paxil. Hematologic: Caprini score 6, patient at high risk for perioperative DVT. Patient provided with VTE education/handout. Skin check: Patient was instructed to make surgeon aware of any skin changes/concerns prior to surgery. Anesthesia: Combative after anesthesia-only occurred once after shoulder surgery *See risk scores as previously documented [facility] Work Phone: 07-29-2024 History and physical note H&P reviewed. The patient was examined. Noted right upper extremity upon presentation this morning, but this has resolved. Denies pain in the upper extremities. Patient reports significant pain over the site of his nephrostomy tube and has hypertension. Hypertension currently similar to admission at approximately 193/95. Elects to proceed due to frequent pain accompanied by loose stools attributed to pain. IR films reviewed and discussed with Dr. Galloway. Access obtained between the 11th and 12th ribs to upper pole. Source Note - PATRICIA Shepherd - 07/19/2024 9:45 AM EDT Images from the original note were not included. CPM/PAT Evaluation Name: Jerry Wilson (Jerry Wilson) /Age: 510/04/1970/53 y.o. In-Person Chief Complaint: Urinary concerns HPI Pleasant 53 y/o male presents with calculus of kidney scheduled for nephrolithotomy percutaneous w/ homium laser, neph tube placement in I.R on 07/29/24. States that he has had this stone for a few years . Endorses frequent UTIs, hematuria, dysuria and flank pain. Denies recent fever/illness/chills. Past Medical History: Diagnosis Date Adverse effect of anesthesia combative postop Hypertension Nephrolithiasis Personal history of other diseases of the circulatory system History of hypertension Sleep apnea Type 2 diabetes mellitus Past Surgical History: Procedure Laterality Date OTHER SURGICAL HISTORY 11/22/2020 Vertebral fusion OTHER SURGICAL HISTORY 11/22/2020 Knee surgery OTHER SURGICAL HISTORY 11/22/2020 Shoulder surgery Patient has no history on file for sexual activity. Family History Problem Relation Name Age of Onset Hypertension Mother Hypertension Father No Known Allergies Prior to Admission medications Medication Sig Start Date End Date Taking? Authorizing Provider fenofibrate (Triglide) 160 mg tablet Take 1 tablet (160 mg) by mouth once daily. Historical Provider, irbesartan (Avapro) 150 mg tablet Take 1 tablet (150 mg) by mouth once daily. Historical Provider, metoprolol tartrate (Lopressor) 100 mg tablet Take 1 tablet (100 mg) by mouth 2 times a day. Historical Provider, oxaprozin (Daypro) 600 mg tablet Take 2 tablets (1,200 mg) by mouth once daily. Historical Provider, PARoxetine (Paxil) 40 mg tablet Take 1.5 tablets (60 mg) by mouth once daily in the morning. Historical Provider, simvastatin (Zocor) 40 mg tablet Take 1 tablet (40 mg) by mouth once daily in the evening. Historical Provider, SUMAtriptan (Imitrex) 100 mg tablet Take 1 tablet (100 mg) by mouth 1 time if needed for migraine. May repeat an additional dose after 2 hours Historical ProviderMD tamsulosin (Flomax) 0.4 mg 24 hr capsule Take 2 capsules (0.8 mg) by mouth once daily. Historical ProviderMD tiZANidine (Zanaflex) 4 mg capsule Take 1 capsule (4 mg) by mouth once daily at bedtime. Historical Provider, Constitutional: Negative for fever, chills, or sweats ENMT: Negative for nasal discharge, congestion, ear pain, mouth pain, throat pain. Positive for poor vision. Respiratory: Negative for cough, wheezing, shortness of breath Cardiac: Negative for chest pain, dyspnea on exertion, palpitations Gastrointestinal: Negative for nausea, vomiting, diarrhea, constipation, abdominal pain Genitourinary: Negative for dysuria, flank pain, frequency, hematuria. See HPI Musculoskeletal: Negative for decreased ROM, pain, swelling, weakness Neurological: Negative for dizziness, confusion, headache Psychiatric: Negative for mood changes Skin: Negative for itching, rash, ulcer Hematologic/Lymph: Negative for bruising, easy bleeding Allergic/Immunologic: Negative itching, sneezing, swelling Physical Exam Vitals reviewed. Constitutional: Appearance: Normal appearance. He is obese. HENT: Head: Normocephalic. Mouth/Throat: Mouth: Mucous membranes are moist. Pharynx: Oropharynx is clear. Eyes: Pupils: Pupils are equal, round, and reactive to light. Neck: Comments: Thick Cardiovascular: Rate and Rhythm: Normal rate and regular rhythm. Heart sounds: Normal heart sounds. Pulmonary: Effort: Pulmonary effort is normal. Breath sounds: Normal breath sounds. Abdominal: General: Bowel sounds are normal. Palpations: Abdomen is soft. Musculoskeletal: General: Normal range of motion. Cervical back: Normal range of motion. Skin: General: Skin is warm and dry. Comments: Scattered scabs on head Neurological: General: No focal deficit present. Mental Status: He is alert and oriented to person, place, and time. Psychiatric: Mood and Affect: Mood normal. Behavior: Behavior normal. PAT AIRWAY: Airway: Mallampati:: II Neck ROM:: Limited normal Testing/Diagnostic: Echo from 2020: CONCLUSIONS: 1. The left ventricular systolic function is normal with a 60% estimated ejection fraction. 2. Poorly visualized anatomical structures due to suboptimal image quality. 3. Aortic valve stenosis is not present. Patient Specialist/PCP: PCP: Dr. Zuñiga Visit Vitals BP (!) 166/104 Pulse 73 Temp 36.8 C (98.2 F) (Temporal) Resp 18 Ht 1.778 m (5' 10 ) Wt (!) 170 kg (375 lb 12.8 oz) SpO2 96% BMI 53.92 kg/m Smoking Status Never BSA 2.9 m DASI Risk Score Flowsheet Row Pre-Admission Testing from 07/19/2024 in [facility] Can you take care of yourself (eat, dress, bathe, or use toilet)? 2.75 filed at 07/19/2024 1007 Can you walk indoors, such as around your house? 1.75 filed at 07/19/2024 1007 Can you walk a block or two on level ground? 2.75 filed at 07/19/2024 1007 Can you climb a flight of stairs or walk up a hill? 5.5 filed at 07/19/2024 1007 Can you run a short distance? 8 filed at 07/19/2024 1007 Can you do light work around the house like dusting or washing dishes? 2.7 filed at 07/19/2024 1007 Can you do moderate work around the house like vacuuming, sweeping floors or carrying groceries? 3.5 filed at 07/19/2024 1007 Can you do heavy work around the house like scrubbing floors or lifting and moving heavy furniture? 8 filed at 07/19/2024 1007 Can you do yard work like raking leaves, weeding or pushing a mower? 4.5 filed at 07/19/2024 1007 Can you have sexual relations? 5.25 filed at 07/19/2024 1007 Can you participate in moderate recreational activities like golf, bowling, dancing, doubles tennis or throwing a baseball or football? 0 filed at 07/19/2024 1007 Can you participate in strenous sports like swimming, singles tennis, football, basketball, or skiing? 0 filed at 07/19/2024 1007 DASI SCORE 44.7 filed at 07/19/2024 1007 METS Score (Will be calculated only when all the questions are answered) 8.2 filed at 07/19/2024 1007 Caprini DVT Assessment Flowsheet Row Pre-Admission Testing from 07/19/2024 in [facility] DVT Score (IF A SCORE IS NOT CALCULATING, MUST SELECT A BMI TO COMPLETE) 6 filed at 07/19/2024 1007 Surgical Factors Major surgery planned, including arthroscopic and laproscopic (1-2 hours) filed at 07/19/2024 1007 BMI (BMI MUST BE CHOSEN) Greater than 50 (Venous stasis syndrome) filed at 07/19/2024 1007 Modified Frailty Index Flowsheet Row Pre-Admission Testing from 07/19/2024 in [facility] Non-independent functional status (problems with dressing, bathing, personal grooming, or cooking) 0 filed at 07/19/2024 1009 History of diabetes mellitus 0.0909 filed at 07/19/2024 1009 History of COPD 0 filed at 07/19/2024 1009 History of CHF No filed at 07/19/2024 1009 History of VT 0 filed at 07/19/2024 1009 History of Percutaneous Coronary Intervention, Cardiac Surgery, or Angina No filed at 07/19/2024 1009 Hypertension requiring the use of medication 0.0909 filed at 07/19/2024 1009 Peripheral vascular disease 0 filed at 07/19/2024 1009 Impaired sensorium (cognitive impairement or loss, clouding, or delirium) 0 filed at 07/19/2024 1009 TIA or CVA withouy residual deficit 0 filed at 07/19/2024 1009 Cerebrovascular accident with deficit 0 filed at 07/19/2024 1009 Modified Frailty Index Calculator .1818 filed at 07/19/2024 1009 [id number] Stroke Risk Points Current as of just now N/A 0 to 9 Points: Last Change: N/A The [id number] risk score (Lip WALLY, et al. 2009. 2010 [employer]) quantifies the risk of stroke for a patient with atrial fibrillation. For patients without atrial fibrillation or under the age of 18 this score appears as N/A. Higher score values generally indicate higher risk of stroke. This score is not applicable to this patient. Components are not calculated. Revised Cardiac Risk Index Flowsheet Row Pre-Admission Testing from 07/19/2024 in [facility] High-Risk Surgery (Intraperitoneal, Intrathoracic,Suprainguinal vascular) 0 filed at 07/19/2024 1007 History of ischemic heart disease (History of VT, History of positive exercuse test, Current chest paint considered due to myocardial ischemia, Use of nitrate therapy, ECG with pathological Q Waves) 0 filed at 07/19/2024 1007 History of congestive heart failure (pulmonary edemia, bilateral rales or S3 gallop, Paroxysmal nocturnal dyspnea, CXR showing pulmonary vascular redistribution) 0 filed at 07/19/2024 1007 History of cerebrovascular disease (Prior TIA or stroke) 0 filed at 07/19/2024 1007 Pre-operative insulin treatment 0 filed at 07/19/2024 1007 Pre-operative creatinine>2 mg/dl 0 filed at 07/19/2024 1007 Revised Cardiac Risk Calculator 0 filed at 07/19/2024 1007 Apfel Simplified Score Flowsheet Row Pre-Admission Testing from 07/19/2024 in [facility] Smoking status 1 filed at 07/19/2024 1008 History of motion sickness or PONV 0 filed at 07/19/2024 1008 Use of postoperative opioids 1 filed at 07/19/2024 1008 Gender - Female 0=No filed at 07/19/2024 1008 Apfel Simplified Score Calculator 2 filed at 07/19/2024 1008 Risk Analysis Index Results This Encounter 07/19/2024 1009 Do you live in a place other than your own home?: 0 When did you begin living in the place you are currently residing?: Greater than one year ago Any kidney failure, kidney not working well, or seeing a kidney doctor (dormitory keeper)? If yes, was this for kidney stones or another problem?: 1 Kidney stones Any history of chronic (long-term) congestive heart failure (CHF)?: 0 No Any shortness of breath when resting?: 0 No In the past five years, have you been diagnosed with or treated for cancer?: No During the last 3 months has it become difficult for you to remember things or organize your thoughts?: 0 No Have you lost weight of 10 pounds or more in the past 3 months without trying?: 0 No Do you have any loss of appetitie?: 0 No Getting Around (Mobility): 0 Can get around without help Eatin Can plan and prepare own meals Toiletin Can use toilet without any help Personal Hygiene (Bathing, Hand Washing, Changing Clothes): 0 Can shower or bathe without any help DOUGLASS Cancer History: Patient does not indicate history of cancer Total Risk Analysis Index Score Without Cancer: 18 Total Risk Analysis Index Score: 18 Stop Bang Score Flowsheet Row Pre-Admission Testing from 07/19/2024 in [facility] Do you snore loudly? 0 filed at 07/19/2024 1007 Do you often feel tired or fatigued after your sleep? 1 filed at 07/19/2024 1007 Has anyone ever observed you stop breathing in your sleep? 1 filed at 07/19/2024 1007 Do you have or are you being treated for high blood pressure? 1 filed at 07/19/2024 1007 Recent BMI (Calculated) 53.9 filed at 07/19/2024 1007 Is BMI greater than 35 kg/m2? 1=Yes filed at 07/19/2024 1007 Age older than 50 years old? 1=Yes filed at 07/19/2024 1007 Is your neck circumference greater than 17 inches (Male) or 16 inches (Female)? 0 filed at 07/19/2024 1007 Gender - Male 1=Yes filed at 07/19/2024 1007 STOP-BANG Total Score 6 filed at 07/19/2024 1007 Prodigy: High Risk Total Score: 8 Prodigy Gender Score ARISCAT Score for Postoperative Pulmonary Complications Flowsheet Row Pre-Admission Testing from 07/19/2024 in [facility] Age Calculated Score 3 filed at 07/19/2024 1009 Preoperative SpO2 0 filed at 07/19/2024 1009 Respiratory infection in the last month Either upper or lower (i.e., URI, bronchitis, pneumonia), with fever and antibiotic treatment 0 filed at 07/19/2024 1009 Preoperative anemia (Hgb less than 10 g/dl) 0 filed at 07/19/2024 1009 Surgical incision 0 filed at 07/19/2024 1009 Duration of surgery 16 filed at 07/19/2024 1009 Shukri Perioperative Risk for Myocardial Infarction or Cardiac Arrest (NANCY) Flowsheet Row Pre-Admission Testing from 07/19/2024 in [facility] Calculated Age Score 1.02 filed at 07/19/2024 1009 Functional Status 0 filed at 07/19/2024 1009 ASA Class -3.29 filed at 07/19/2024 1009 Creatinine 0 filed at 07/19/2024 1009 Type of Procedure -0.26 filed at 07/19/2024 1009 NANCY Total Score -7.78 filed at 07/19/2024 1009 NANCY % 0.04 filed at 07/19/2024 1009 Assessment and Plan: Assessment and Plan: Preop: OR with Dr. Durbin for nephrolithotomy, percutaneous with holmium laser, neph tube placement Labs ordered per Dr. Durbin. EKG obtained and enclosed. NSR. Left axis deviation. Comparable to prior EKG on file. Requested records from PCP as we have no recent medical history documented. Neurologic: Migraines: Has intermittently. Uses sumatriptan as needed The patient is at an increased risk for post operative delirium secondary to polypharmacy and type and duration of surgery . Preoperative brain exercise educational handout provided to patient. The patient is at an increased risk for perioperative stroke secondary to HTN, HLD, DM , and general anesthesia. Cardiac: Hypertension: Elevated today-states he did not take his BP meds this AM and he was stressed about the drive here (lives 1.5 hours away). He is going to take his BP medications as soon as he gets home and recheck. He is asymptomatic Hyperlipidemia: On statin and fenofibrate Rojas Activity Status Index (DASI) DASI Score: 44.7 MET Score: 8.2 RCRI 0 which is 3.9% 30 day risk of MACE (risk for cardiac , nonfatal myocardial infarction, and nonfactal cardiac arrest) NANCY score which indicates a 0.04% risk of intraoperative or 30-day postoperative MACE Pulmonary: Sarcoidosis: Stable. Denies recent breathing concerns-states he has had in the past. CLEM: Uses CPAP STOP-BANG score of 6. High risk of obstructive sleep apnea. ARISCAT: 19 points which is a low (1.6%) risk of in-hospital post-op pulmonary complications Endocrine: DM: No medications noted for DM. A1c obtained today. GI: Apfel: 2 points 39% risk for post operative N/V /Renal: Kidney stone: Reason for upcoming procedure Psychiatric: Depression: Stable with paxil. Hematologic: Caprini score 6, patient at high risk for perioperative DVT. Patient provided with VTE education/handout. Skin check: Patient was instructed to make surgeon aware of any skin changes/concerns prior to surgery. Anesthesia: Combative after anesthesia-only occurred once after shoulder surgery *See risk scores as previously documented documented in this encounter [facility] Work Phone: 07-29-2024 Evaluation note Interventional Radiology Preprocedure Note Indication for procedure: The encounter diagnosis was Calculus of kidney. RIGHT. Relevant review of systems: NA Relevant Labs: Lab Results Component Value Date CREATININE 0.88 07/19/2024 EGFR >90 07/19/2024 INR 0.9 07/29/2024 PROTIME 9.8 07/29/2024 Planned Sedation/Anesthesia: Moderate Airway assessment: Large neck Directed physical examination: Awake and alert, oriented No acute distress Regular rate, rhythm Breathing non-labored Mallampati: III (soft and hard palate and base of uvula visible) ASA Score: ASA 2 - Patient with mild systemic disease with no functional limitations Benefits, risks and alternatives of procedure and planned sedation have been discussed with the patient and/or their veterans service representative. All questions answered and they agree to proceed. [facility] Work Phone: 07-29-2024 Miscellaneous Notes Interventional Radiology Brief Postprocedure Note Attending: Radhames Romero MD Label Maker: none Diagnosis: 1. Calculus of kidney IR nephroureteral placement IR nephroureteral placement Description of procedure: Right renal diverticulum access, unable to reach collecting system. Placed 5 F end hole catheter via a superior pole calyx. Anesthesia: MAC Moderate Complications: None Estimated Blood Loss: minimal Medications (Filter: Administrations occurring from 1013 to 1141 on 07/29/24) As of 07/29/24 1141 oxygen (O2) therapy (L/min) Total volume: Not documented* *Total volume has not been documented. View each administration to see the amount administered. Date/Time Rate/Dose/Volume Action 07/29/24 1017 3 L/min - 180,000 mL/hr New Bag midazolam (Versed) injection (mg) Total dose: 2 mg Date/Time Rate/Dose/Volume Action 07/29/24 1025 1 mg Given 1037 1 mg Given fentaNYL PF (Sublimaze) injection (mcg) Total dose: 100 mcg Date/Time Rate/Dose/Volume Action 07/29/24 1026 50 mcg Given 1037 50 mcg Given lidocaine PF (Xylocaine) 10 mg/mL (1 %) injection (mL) Total volume: 10 mL Date/Time Rate/Dose/Volume Action 07/29/24 1038 5 mL Given 1053 5 mL Given iohexol (OMNIPaque) 350 mg iodine/mL solution 50 mL (mL) Total volume: 50 mL Dosing weight: 150 Date/Time Rate/Dose/Volume Action 07/29/24 1105 50 mL Given No specimens collected See detailed result report with images in PACS. The patient tolerated the procedure well without incident or complication and is in stable condition. Interventional Radiology Preprocedure Note Indication for procedure: The encounter diagnosis was Calculus of kidney. RIGHT. Relevant review of systems: NA Relevant Labs: Lab Results Component Value Date CREATININE 0.88 07/19/2024 EGFR >90 07/19/2024 INR 0.9 07/29/2024 PROTIME 9.8 07/29/2024 Planned Sedation/Anesthesia: Moderate Airway assessment: Large neck Directed physical examination: Awake and alert, oriented No acute distress Regular rate, rhythm Breathing non-labored Mallampati: III (soft and hard palate and base of uvula visible) ASA Score: ASA 2 - Patient with mild systemic disease with no functional limitations Benefits, risks and alternatives of procedure and planned sedation have been discussed with the patient and/or their veterans service representative. All questions answered and they agree to proceed. documented in this encounter [facility] Work Phone: 07-29-2024 Surgery Postoperative evaluation and management note Interventional Radiology Brief Postprocedure Note Attending: Radhames Romero MD Label Maker: none Diagnosis: 1. Calculus of kidney IR nephroureteral placement IR nephroureteral placement Description of procedure: Right renal diverticulum access, unable to reach collecting system. Placed 5 F end hole catheter via a superior pole calyx. Anesthesia: MAC Moderate Complications: None Estimated Blood Loss: minimal Medications (Filter: Administrations occurring from 1013 to 1141 on 07/29/24) As of 07/29/24 1141 oxygen (O2) therapy (L/min) Total volume: Not documented* *Total volume has not been documented. View each administration to see the amount administered. Date/Time Rate/Dose/Volume Action 07/29/24 1017 3 L/min - 180,000 mL/hr New Bag midazolam (Versed) injection (mg) Total dose: 2 mg Date/Time Rate/Dose/Volume Action 07/29/24 1025 1 mg Given 1037 1 mg Given fentaNYL PF (Sublimaze) injection (mcg) Total dose: 100 mcg Date/Time Rate/Dose/Volume Action 07/29/24 1026 50 mcg Given 1037 50 mcg Given lidocaine PF (Xylocaine) 10 mg/mL (1 %) injection (mL) Total volume: 10 mL Date/Time Rate/Dose/Volume Action 07/29/24 1038 5 mL Given 1053 5 mL Given iohexol (OMNIPaque) 350 mg iodine/mL solution 50 mL (mL) Total volume: 50 mL Dosing weight: 150 Date/Time Rate/Dose/Volume Action 07/29/24 1105 50 mL Given No specimens collected See detailed result report with images in PACS. The patient tolerated the procedure well without incident or complication and is in stable condition. [facility] Work Phone: 05-24-2024 Hospital Discharge instructions Patient Education 05/24/2024 [...] including vitamins, herbs, eye drops, creams, and hpiw-fuv-fekispu medicines. Any problems you or family members [...] unless your provider tells you to. ?Taking allt-uwr-ehbmtqo medicines, vitamins, herbs, and supplements. Tests You [...] provider. Document Revised: 12/27/2022 Document Reviewed: 12/27/2022 [employer] Patient Education 2023 [employer] 05/24/2024 10:25:38 Percutaneous Nephrolithotomy Percutaneous Nephrolithotomy Percutaneous [...] including vitamins, herbs, eye drops, creams, and vwbo-rwg-pbzisjv medicines. Any problems you or family members [...] unless your provider tells you to. Taking blyv-teq-mvhudxm medicines, vitamins, herbs, and supplements. Tests You [...] provider. Document Revised: 12/26/2022 Document Reviewed: 12/26/2022 [employer] Patient Education 2023 [employer] Follow Up Care 03/30/2024 10:32:55 With:POLY ISIDRO, Alex Cohen, GABEL Address: [address] [place] [address] [place], [place] [id number]- When: Unknown [facility] Renetta 05-24-2024 Note Patient Education Nephrology Laser Therapy for Kidney Stones Laser therapy [...] pee. Tell a health care provider about: ??? Any allergies you have. ??? All medicines you are taking, including vitamins, herbs, eye drops, creams, and ltli-rtq-utpckss medicines. ??? Any problems you or family members have had with anesthesia. ??? Any bleeding problems you have. ??? Any surgeries you have had. ??? Any medical conditions you have. ??? Whether you are or may be . What are the risks? Your health care provider will talk with you about risks. These may include: ??? Infection. ??? Bleeding. ??? Allergic reactions to medicines. ??? Damage to: ? The part of your body that drains pee (urine) from the bladder (urethra). ? The bladder. ? The tube that connects the bladder to the kidneys (ureter). ??? Urinary tract infection (UTI). ??? Urethral stricture. This is when the urethra is narrowed by scarring. ??? Trouble peeing. ??? Blockage of the kidney. This may be caused by a piece of kidney stone. What happens before the procedure? When to stop eating and drinking Follow instructions from your provider about what you may eat and drink. These may include: ??? 8 hours before the procedure ? Stop eating most foods. Do not eat meat, fried foods, or fatty foods. ? Eat only light foods, such as toast or crackers. ? All liquids are okay except energy drinks and alcohol. ??? 6 hours before the procedure ? Stop eating. ? Drink only clear liquids, such as water, clear fruit juice, black coffee, plain tea, and sports drinks. ? Do not drink energy drinks or alcohol. ??? 2 hours before the procedure ? Stop drinking all liquids. ? You may be allowed to take medicines with small sips of water. ??? If you do not follow your provider's instructions, your procedure may be delayed or canceled. Medicines ??? Ask your provider about: ? Changing or stopping your regular medicines. These include any diabetes medicines or blood thinners you take. ? Taking medicines such as aspirin and ibuprofen. These medicines can thin your blood. Do not take them unless your provider tells you to. ? Taking hcxv-zda-pyffzhp medicines, vitamins, herbs, and supplements. Tests ??? You may have a physical exam before the procedure. You may also have tests done. These may include: ? Imaging tests. ? Blood or pee tests. Surgery safety ??? Ask your provider: ? How your surgery site will be marked. ? What steps will be taken to help prevent infection. These steps may include: ? Removing hair at the surgery site. ? Washing skin with a soap that kills germs. ? Taking antibiotics. General instructions ??? Do not use any products that contain nicotine or tobacco for at least 4 weeks before the procedure. These products include cigarettes, chewing tobacco, and vaping devices, such as e-cigarettes. If you need help quitting, ask your provider. ??? If you will be going home right after the procedure, plan to have a responsible adult: ? Take you home from the hospital or clinic. You will not be allowed to drive. ? Care for you for the time you are told. What happens during the procedure? An IV will be inserted into one of your veins. ??? You will be given: ? A sedative. This helps you relax. ? Anesthesia. This keeps you from feeling pain. It will make you fall asleep for surgery. ??? A tool with a camera on the end (ureteroscope) will be put into your urethra. It will be moved through your bladder to your kidney. It will send pictures to a screen in the operating room. This will show what parts of your kidney need to be treated. ??? A tube will be put through the ureteroscope. It will be moved into your kidney. ??? The laser device will be put into your kidney through the tube. The laser will be used to break up the kidney stones. ??? A tool with a tiny wire basket may be put through the tube into your kidney. This can help remove the small pieces of the kidney stone. ??? A small mesh tube (stent) may be placed to allow your kidney to drain. ??? The tube and ureteroscope will be taken out at the end of the surgery. The procedure may vary among providers and hospitals. What happens after the procedure? Your blood pressure, heart rate, breathing rate, and blood oxygen level will be monitored until you leave the hospital or clinic. ??? If you had a stent placed, it may have a string that will be secured to your skin. This helps yo (more content not included)... [facility] 03-30-2024 Hospital Discharge instructions Patient Education 03/30/2024 16:23:00 Kidney Stones, Ctxp-st-Slqz Kidney Stones Kidney stones are rock-like masses [...] Follow these instructions at home: Medicines Take kixg-bmr-kjjcyjq and prescription medicines only as told by [...] provider. Document Revised: 12/20/2022 Document Reviewed: 12/20/2022 [employer] Patient Education 2023 [employer] Follow Up Care 03/16/2024 13:13:27 With:POLY ISIDRO, Alex Cohen, URL Address: [facility] [place] [id number]- When:Within 6 Week(s) [facility] 03-30-2024 Note Urology Office/Clini c Note Chief Complaint Dr. Zuñiga referral HPI Staff 53 year old male referred by Dr. Zuñiga for hematuria and kidney stones. Pt. states [...] next ov. Ordered: HgbA1c Lab Specimen Collect [id number] PSA Total Urnls Dip Stick Auto w/o Microscopy POC 99805 4. Kidney stone (N20.0: Calculus of kidney) KUB done 01/23/23 showing Rt. nephrolithiasis with 1.1 cm stone projected over the pelvis, cannot r/o UPJ stone. CT done 01/29/23 - no hydro, +R stones (no details on size/location). -update imaging w/ KUB+KEVYN. Return to discuss possible stone tx w . Ordered: [id number] Measure Post Void residual urine and/or bladder capacity by US- non-imaging HgbA1c Lab Specimen Collect [id number] PSA Total US Renal XR Abdomen 1 View 5. Diabetes (E11.9: Type 2 diabetes mellitus without complications) A1C 7.5 done 08/10/22 Not sure of his DM meds. Discussed DM effect on LUTS. -A1c drawn IO today. Ordered: HgbA1c Lab Specimen Collect [id number] PSA Total 6. ED (erectile dysfunction) (N52.9: [...] day(s), # 60 cap(s), Refills(s) 11, Pharmacy: [id number], 180, cm, 03/30/24 9:46:00 EST, Height/Length Dosing, 149.8, kg, 03/30/24 9:46:00 EST, Weight Dosing Follow-up With When Contact Information POLY ISIDRO, Alex P, URL In [address] [place] [id number] Additional Instructions: Patient Education Kidney Stones, Shnz-zz-Tqav Problem List/Past Medical History Ongoing Abnormal abdominal CT scan BMI 50.0-59.9, adult BPH with obstruction/lower urinary tract symptoms Diabetes ED (erectile dysfunction) Frequent UTI Hepatic steatosis Hepatomegaly History of nephrolithiasis HTN (hypertension) Hypercholesteremia Hyperplastic rectal polyp Interstitial lung disease LLQ abdominal pain Mediastinal lymphadenopathy Mediastinal lymphadenopathy Morbid obesity Obstructive sleep apnea syndrom (more content not included)... [facility] Comment on above: Result Comment: Elec tronically Signed By: ROSAURA DUMONT, JAIME Bowie\.br\Date and Time Signed: 03/30/24 16:24 EST 03-30-2024 [...] these instructions at home: Medicines ??? Take vtpo-oyq-gmivqpl and prescription medicines only as told by [...] provider. Document Revised: 12/20/2022 Document Reviewed: 12/20/2022 [employer] Patient Education ? 2023 [employer] [facility] 11-22-2020 History of Present illness Narrative Mr. Wilson is a 50 y.o man, never a smoker, being evaluated for dyspnea on exertion and sarcoidosis.PCP: Dr. Pereira: Dr. Jaimes (pulmonary in [place])HPI:11/22/2020: At baseline, he had no dyspnea on [...] He was started on prednisone by his sericulturist in July. He initially felt slightly improved but shortly started worsening again. 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 Has known exposure to asbestos, silica or [...] body habitus. ?RV enlargement but preserved RV antfqekp72/13/2020 -> NM stress test with No ischemia, normal wall motion, lower normal EF, left ventriculomegalyLabs:None on record [facility] [facility] Sleep Work Phone: 11-22-2020 History of Present illness Narrative Mr. Wilson is a 50 y.o man, never a smoker, being evaluated for dyspnea on exertion and sarcoidosis.PCP: Dr. Pereira: Dr. Jaimes (pulmonary in [place])HPI:11/22/2020: At baseline, he had no dyspnea on [...] He was started on prednisone by his sericulturist in July. He initially felt slightly improved but shortly started worsening again. 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 Has known exposure to asbestos, silica or [...] body habitus. ?RV enlargement but preserved RV wwgymtvx60/13/2020 -> NM stress test with No ischemia, normal wall motion, lower normal EF, left ventriculomegalyLabs:None on record [facility] Work Phone: 11-22-2020 History of Present illness Narrative Mr. Wilson is a 50 y.o man, never a smoker, being evaluated for dyspnea on exertion and sarcoidosis.PCP: Dr. Pereira: Dr. Jaimes (pulmonary in [place])HPI:11/22/2020: At baseline, he had no dyspnea on [...] He was started on prednisone by his sericulturist in July. He initially felt slightly improved but shortly started worsening again. 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 Has known exposure to asbestos, silica or [...] body habitus. ?RV enlargement but preserved RV kpspnjzu00/13/2020 -> NM stress test with No ischemia, normal wall motion, lower normal EF, left ventriculomegalyLabs:None on record [facility] Work Phone: 11-22-2020 History of Present illness Narrative Mr. Wilson is a 50 y.o man, never a smoker, being evaluated for dyspnea on exertion and sarcoidosis.PCP: Dr. Pereira: Dr. Jaimes (pulmonary in [place])HPI:11/22/2020: At baseline, he had no dyspnea on [...] He was started on prednisone by his sericulturist in July. He initially felt slightly improved but shortly started worsening again. 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 Has known exposure to asbestos, silica or berylliumCTD evaluation: No hx of joint pain/swelling, skin rashes, Raynaud's, sicca syndrome, eye redness, muscle pain and weakness, difficulty swallowing.Family History:No family history of lung diseases or cancerImaging history: (I have personally reviewed the imaging below)12/15/2020 HRCT with hilar/mediastinal ADP but clear hxezwgwrkw84/24/2021: CTPE with hilar/mediastinal ADP but clear parenchymaPFTs:01/12/2021 -> Ratio of 0.77/FEV1 3.67L (74%) (no BD response)/FVC 2.82L (72%)/TLC 76%/RVtoTLC ratio 0.42/DLCO 89%6 MWTs:01/12/2021->on RA, 191 m. Peak SpO2 of 95%. Gary SpO2 92%. (HR went up from 85 to 120 and BP from 150-202 systolic)Lung biopsy: None on recordEcho:12/15/2020 -> Normal EF, no diastolic dysfunction, with normal LA, RV size and boxnthvn31/24/2020 -> difficult to interpret images, probably 2/2 body habitus. ?RV enlargement but preserved RV /13/2020 -> NM stress test with No ischemia, normal wall motion, lower normal EF, left ventriculomegalyLabs:CBC with lymphopenia (590)low 25 OH vitamin D but high 1-25 OH vitamin D, elevated 24hr urine calcium without hematuria [facility] [facility] Work Phone: Evaluation + Plan note No data available for this section General Surgery [place] Evaluation + Plan note Future Appointments Appointment Date:05/24/2024 09:30:00 AM Scheduled Provider:POLY ISIDRO, Alex Cohen Location:[facility] Appointment Type:URO Office Visit [facility] Evaluation + Plan note [facility] Evaluation note No Information [facility] ? Other Evaluation note Diagnosis Calculus of kidney documented in this encounter [facility] Work Phone: Evaluation note* Diagnosis Right kidney stone- Primary Kidney stone Calculus of kidney Calculus of kidney Right kidney stone Preop general physical exam- Primary Other specified pre-operative examination Kidney stone Calculus of kidney Preop examination Unspecified pre-operative examination documented in this encounter [facility] Work Phone: History general Narrative - Reported* Type Description Date Medical History Hypertension Medical History hypercholesterolemia Medical History back pain Medical History rotator cuff tear Surgical History rotator cuff Surgical History back surgery X2 Hospitalization History see above [facility] Other Hospital Discharge instructions No data available for this section General Surgery [place] Progress note No data available for this section General Surgery [place] Reason for referral (narrative) Referred by: POLY ISIDRO, Alex Cohen [facility] Reason for visit Narrative* Auth/Cert (Routine) Specialty Diagnoses / Procedures Referred By Amber lemus Referred To Contact Diagnoses Calculus of kidney Calculus of kidney [N20.0] Procedures OK PERQ NL/PL LITHOTRP SIMPLE UP TO 2 CM 1 LOCATION OK PLMT NEPHROSTOMY CATH PRQ NEW ACCESS RS&I OK NJX PX ANTEGRDE NFROSGRM &/URTRGRM NEW ACCESS NEPHROLITHOTOMY, PERCUTANEOUS W/HOLMIUM LASER, NEPH TUBE PLACEMENT IN I.R. AT: 1000 AM NEPHROLITHOTOMY, PERCUTANEOUS W/HOLMIUM LASER, NEPH TUBE PLACEMENT IN I.R. AT: 1000 AM NEPHROLITHOTOMY, PERCUTANEOUS W/HOLMIUM LASER, NEPH TUBE PLACEMENT IN I.R. AT: 1000 [place] [address] [address] [address] Phone: tel: fax: [place] [address] [place] [address] fax: Referral ID Status Reason Start Date Expiration Date Visits Re quested Visits Authorized [id number] 1 1 [facility] Work Phone: Summary Purpose Family History No Family History [...] Status:Active Advance Directives No Advanced Directives Records Found Date Activated Date Inactivated Comments 07/29/2024 9:03 PM Question Answer Comments Plan of Care: Code Status Discussion Not Compl eted Decision Maker: Provider Rationale: Patient condition does not warra nt discussion Chief Complaint Initial visit with provider to [...] section and content) DATE CREATED AUTHOR 05/08/2018 [facility] DATE CREATED AUTHOR AUTHOR'S ORGANIZ ATION 01/14/2021 [employer] DATE CREATED AUTHOR AUTHOR'S ORGANIZ ATION 07/30/2021 [facility] DATE CREATED AUTHOR AUTHOR'S ORGANIZ ATION 09/19/2022 [facility] DATE CREATED AUTHOR AUTHOR'S ORGANIZ ATION 04/02/2024 [facility] DATE CREATED AUTHOR AUTHOR'S ORGANIZ ATION 04/06/2024 [facility] DATE CREATED AUTHOR AUTHOR'S ORGANIZ ATION 07/03/2024 [facility] DATE CREATED AUTHOR AUTHOR'S ORGANIZ ATION 07/30/2024 [facility] DATE CREATED AUTHOR AUTHOR'S ORGANIZ ATION 08/14/2024 [facility] REASON FOR VISIT (unrecogniz ed section and content) NAUSEAUS, HAVING PROBLEMS UR INATING, AND IT IS DARK Patient Care team informatio n (unrecognized section and content) Personnel Name: Doron Zuñiga MD Address: Address: [address] [place] [address] Personnel Name: Doron Zuñiga MD Address: Address: [address] [place] [address] Personnel Name: Doron Zuñiga MD Address: Address: [address] [place] [address] Personnel Name: Doron Zuñiga MD Address: Address: [address] [place] [address] Personnel Name: Doron Zuñiga MD Address: Address: [address] [place] [address] Scheduled Active and Recently Administ ered Medications (unrecognized section and content) Medication Order 07/28/2024 07/29/2024 07/30/2024 acetaminophen (Tylenol) tablet 650 mg 650 mg, oral, Every 6 hours, First dose on Hillary 07/29/24 at 2200, Recovery & On Unit, If ordered PRN for pain, nurse is permitted to administer this medication for higher pain scores based on patient preference? Yes 2204 (Given - Provider: Ivy Silva RN) 0408 (Given - Provider: Ivy Silva RN)1000 (Due)1600 (Due)2200 (Due) ceFAZolin (Ancef) 2 g in dextrose (iso) IV 100 mL (COMPLETED) 2 g, intravenous, Administer over 30 Minutes, 30 min pre-op, Starting on Hillary 07/29/24 at 0930, For 1 dose, Preprocedure, premix bag, Dosing of this medication varies based on severity of illness. Does this patient have sepsis or concern for sepsis (probable or documented infection plus systemic manifestations of infection)? No, Suspected Indication (Select all that apply): Surgical Prophylaxis, Indications: Surgical Prophylaxis 1539 (Given - Provider: Estela Rosario RN)1852 (Anesthesia Volume Adjustment - Provider: Glendy Segura APRN-MILL MACHINIST) ceFAZolin (Ancef) 2 g in dextrose (iso) IV 100 mL 2 g, intravenous, Administer over 30 Minutes, Every 8 hours, First dose on Hillary 07/29/24 at 2330, For 3 doses, Phase II/On Unit, premix bag, Dosing of this medication varies based on severity of illness. Does this patient have sepsis or concern for sepsis (probable or documented infection plus systemic manifestations of infection)? No, Suspected Indication (Select all that apply): Surgical Prophylaxis, Indications: Surgical Prophylaxis 232 (New Bag - Provider: Ivy Silva RN)2356 (Stopped - Provider: Ivy Silva RN) 0826 (New Bag - Provider: Jaimee Mi RN)0856 (Stopped - Provider: Jaimee Mi RN)1530 (Due) fenofibrate (Triglide) tablet 160 mg 160 mg, oral, Daily, First dose on Fri07/30/24 at 0900, Recovery & On Unit 0826 (Given - Provid er: Jaimee Mi RN) losartan (Cozaar) tablet 50 mg 50 mg, oral, Daily, First dose on Fri07/30/24 at 0900, Recovery & On Unit 0826 (Given - Provid er: Jaimee Mi RN) metFORMIN (Glucophage) tablet 500 mg 500 mg, oral, 2 times daily (morning and late afternoon), First dose on Fri07/30/24 at 0800, Recovery & On Unit 0826 (Given - Provid er: Jaimee Mi RN)1700 (Due) metoprolol tartrate (Lopressor) tablet 100 mg 100 mg, oral, 2 times daily, First dose on Hillary 07/29/24 at 2200, Recovery & On Unit 0005 (Given - Provid er: Ivy Silva RN - Comment: PT. GOT IV LOPRESSOR AT 1914)825 (Given - Provider: Jaimee Mi RN)2100 (Due) midazolam (Versed) injection 2 mg (COMPLETED) 2 mg, intravenous, Once, On Hillary 07/29/24 at 1430, For 1 dose, Preprocedure 1414 (Given - Provider: Cindy Garcia RN) oxygen (O2) therapy (CANCELED) inhalation, Continuous - , First dose on Hillary 07/29/24 at 1915, Recovery (only), Device: Simple Face Mask, Rate in Liters per minute: 10 LPM, Keep O2 Sat Above: 92% 2323 (Start - Provider: Ivy Silva RN) PARoxetine (Paxil) tablet 60 mg 60 mg, oral, Every morning, First dose on Fri07/30/24 at 0900, Recovery & On Unit 0826 (Given - Provid er: Jaimee Mi RN) simvastatin (Zocor) tablet 40 mg 40 mg, oral, Every evening, First dose on Hillary 07/29/24 at 2200, Recovery & On Unit 2205 (Given - Provider: Ivy Silva RN) 2100 (Due) tamsulosin (Flomax) 24 hr capsule 0.8 mg 0.8 mg, oral, Daily, First dose on Fri07/30/24 at 0900, Recovery & On Unit, Give 30 minutes after the same mealtime each day. Capsules should be swallowed whole; do not crush, chew, or open. 08 (Given - Provid er: Jaimee Mi RN) PRN Medication Order 07/28/2024 07/29/2024 07/30/2024 bisacodyl (Dulcolax) EC tablet 10 mg 10 mg, oral, Daily PRN, constipation, first line, Starting on Hillary 07/29/24 at 2103, Phase II/On Unit, 1st line for treatment of constipation - contact provider if no bowel movement in past 48 hours. Do not crush, chew, or split. hydrALAZINE (Apresoline) injection 10 mg 10 mg, intravenous, Every 6 hours PRN, SBP GREATER than 170, Starting on Hillary 07/29/24 at 2103, Phase II/On Unit, Hold for HR 100 or GREATER). HYDROmorphone (Dilaudid) injection 0.5 mg (CANCELED) 0.5 mg, intravenous, Every 5 min PRN, pain moderate (4-6), first line, Starting on Hillary 07/29/24 at 1849, Recovery (only), Max total of 4 mg regardless of dose. 1914 (Given - Provider: Latoya Durham RN) iohexol (OMNIPaque) 300 mg iodine/mL solution (CANCELED) As needed, Starting on Hillary 07/29/24 at 1618, Intraprocedure 1618 (Given - Provider: Sofie Durbin MD - Comment: RIGHT KIDNEY) ketorolac (Toradol) injection 15 mg 15 mg, intravenous, Every 6 hours PRN, pain moderate (4-6), first line, pain severe (7-10), first line, Starting on Hillary 07/29/24 at 2138, For 3 days, Recovery & On Unit metoprolol tartrate (Lopressor) injection 5 mg (CANCELED) 5 mg, intravenous, Every 30 min PRN, For SBP>180 with a HR>60, Starting on Hillary 07/29/24 at 1849, For 4 doses, Recovery (only) 1914 (Given - Provider: Latoya Durham, YELENA) ondansetron (Zofran) injection 4 mg (COMPLETED) 4 mg, intravenous, Once as needed, nausea/vomiting, first line, Starting on Hillary 07/29/24 at 1849, For 1 dose, Recovery (only), When administering via IV Push, administer over 3-5 minutes. 1914 (Given - Provider: Latoya Durham RN) ondansetron (Zofran) injection 4 mg(Linked Group 1) 4 mg, intravenous, Every 8 hours PRN, nausea/vomiting, first line, Starting on Hillary 07/29/24 at 2103, Phase II/On Unit, 1st Line. Give IV if patient is unable to take orally. If inadequate response within 60 minutes, proceed to next-line agent for same PRN reason or contact provider if no further options ordered. When administering via IV Push, administer over 3-5 minutes. ondansetron (Zofran) tablet 4 mg(Linked Group 1) 4 mg, oral, Every 8 hours PRN, nausea/vomiting, first line, Starting on Hillary 07/29/24 at 2103, Phase II/On Unit, 1st Line. Use oral route first, if possible. If inadequate response within 60 minutes, proceed to next-line agent for same PRN reason or contact provider if no further options ordered. oxyCODONE (Roxicodone) immediate release tablet 5 mg 5 mg, oral, Every 6 hours PRN, pain severe (7-10), second line, Starting on Hillary 07/29/24 at 2138, Recovery & On Unit, If ordered PRN for pain, nurse is permitted to administer this medication for higher pain scores based on patient preference? Yes oxygen (O2) therapy inhalation, Continuous PRN - O2/gases, other, Starting on Hillary 07/29/24 at 2255, Device: Nasal Cannula, Rate in liters per minute: Other, Custom Value: 1-4 LPM, Keep O2 Sat Above: 92% SUMAtriptan (Imitrex) tablet 100 mg 100 mg, oral, Once as needed, migraine, Starting on Hillary 07/29/24 at 2138, Recovery & On Unit, May repeat dose once in 2 hours if unresolved. Do not exceed 200 mg in 24 hours. Linked Groups Order Group 1: ondansetron (Zofran) tablet 4 mgJump to med 4 mg, oral, Every 8 hours PRN, nausea/vomiting, first line, Starting on Hillary 07/29/24 at 2103, Phase II/On Unit, 1st Line. Use oral route first, if possible. If inadequate response within 60 minutes, proceed to next-line agent for same PRN reason or contact provider if no further options ordered. Or ondansetron (Zofran) injection 4 mgJump to med 4 mg, intravenous, Every 8 hours PRN, nausea/vomiting, first line, Starting on Hillary 07/29/24 at 2103, Phase II/On Unit, 1st Line. Give IV if patient is unable to take orally. If inadequate response within 60 minutes, proceed to next-line agent for same PRN reason or contact provider if no further options ordered. When administering via IV Push, administer over 3-5 minutes. FOR RECORDS PERTAINING TO PATIENTS WHO ARE [...] BE BASED ON THE PRIMARY CLINICAL RECORDS. [employer] provides no warranty or guarantee of the accuracy or completeness of information in this document.
--- NOTE | 2024-08-22 12:16 | ECG_ITS ---
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 Measurements Intervals [place] Rate: 165 P: -[id number] MO: -[id number] QRS: 250 QRSD: 92 T: 52 QT: 352 QTc: 443 Interpretive Statements Sinus tachycardia 2440 Incomplete right bundle branch block 7300 Indeterminate axis 9140 abnormal rhythm ECG Compared to ECG 09/13/2022 12:16:17 Heart rate has increased Electronically Signed On 08-23-2024 20:17:43 EDT by BO PARTIDA M.D.
--- NOTE | 2024-08-22 12:19 | ED_ITS ---
HPI HPI - General Adult General Chief complaint: Shortness of Breath/Dyspnea Stated complaint: URINARY ISSUES, SHORTNESS OF BREATH, SURGERY 2 WKS Time Seen by Provider: 08/22/24 12:16 Source: patient Mode of arrival: Wheelchair History of Present Illness HPI narrative: Patient is a 53-year-old male who is presenting to the ER today with chief complaint of shortness of breath. When patient was triaged, his heart rat is in the 160-150s. Patient is febrile. Patient was brought to the ER with his . Patient's been having intractable nausea and vomiting since Friday evening. Patient had a stent placed on the right side at [facility] approximately 3 weeks ago. Patient is diabetic, only takes metformin. Patient's sugar averages in the 200s. Patient is family is in diaphoretic. Patient is hyperventilating. Patient is stating his pain is mild to moderate. Patient has a history of sarcoidosis. No chest pain. Patient has chronic shortness of breath. Patient states he is incontinent of urine this morning. Patient has an appointment with his urologist at [facility] on to have his stent placed. Patient has no headache or neck pain. All systems are negative except as noted/marked. All systems reviewed and otherwise negative. Nurses note and vital signs reviewed and patient is not hypoxic. General: The patient appears moderate distress secondary to intractable nausea vomiting since Friday night, mild to moderate right flank and right lower quadrant pain. Patient is hyperventilating. Patient is resting uncomfortably on cart. Patient is not toxic, lethargic, or listless Skin: Warm, clammy and diaphoretic, no pallor noted. There is no rash noted. No petechiae, purpura. Patient has skin glue to the right lower back where a stent was placed initially, was not able to be advanced and was taken out. Head: Normocephalic, atraumatic Eye: Normal conjunctiva, no drainage, EOMI. PERRL Ears, Nose, Mouth, and Throat: oral mucosa is moist. Nares patent. Mouth without vesicles. Cardiovascular: Regular Rate and Rhythm, no murmur, gallop, rub Respiratory: Patient is in no distress, no accessory muscle use, lungs are clear to auscultation, no wheezing, rales or rhonchi Back: non-tender. No CT LS midline pain GI: Soft, obese, mild suprapubic tenderness palpation. No pulsatile mass, mild right lower quadrant pain, mild to moderate right flank tenderness to palpation, mild right CVA tenderness palpation, no left CVA tenderness palpation no tenderness to palpation, no masses appreciated. No rebound, guarding, or rigidity noted. No distention Musculoskeletal: Patient has full range of motion of all of the extremities, no motor, sensory, or focal neurological deficits Neurological: A&O x4, normal speech Psychiatric: Cooperative Related Data Home Medications ?Medication ?Instructions ?Recorded ?Confirmed metoprolol tartrate 100 mg tablet 100 mg PO BID 03/31/23 08/22/24 oxaprozin 600 mg tablet 1,200 mg PO DAILY 03/31/23 08/22/24 paroxetine HCl 40 mg tablet 60 mg PO DAILY 03/31/23 08/22/24 irbesartan 150 mg tablet 150 mg PO DAILY 08/22/24 08/22/24 simvastatin 40 mg tablet 40 mg PO .QHS 08/22/24 08/22/24 tamsulosin 0.4 mg capsule 0.8 mg PO DAILY 08/22/24 08/22/24 tizanidine 4 mg tablet 8 mg PO .QHS 08/22/24 08/22/24 Allergies Allergy/AdvReac Type Severity Reaction Status Date / Time No Known Drug Allergies Allergy Verified 03/31/23 14:31 Opioid HPI Opioid Management Most Recent Opioid Data: Last Pain Scale 5 08/22/24 15:50 08/22/24 Last MAR Pain Assessment 08/22/24 15:50 [facility] Medical History (Updated 08/22/24 @ 15:37 by Gamal Lowry) Hx of diabetes mellitus ?Z86.39 - Personal history of other endocrine, nutritional and metabolic disease (ICD-10) Ureteral stent present ?Z96.0 - Presence of urogenital implants (ICD-10) Fusion of lumbar spine ?M43.26 - Fusion of spine, lumbar region (ICD-10) Vitamin D deficiency ?E55.9 - Vitamin D deficiency, unspecified (ICD-10) Sarcoidosis ?D86.9 - Sarcoidosis, unspecified (ICD-10) Rectal bleeding ?K62.5 - Hemorrhage of anus and rectum (ICD-10) Obstructive sleep apnea ?G47.33 - Obstructive sleep apnea (adult) (pediatric) (ICD-10) Obesity ?E66.9 - Obesity, unspecified (ICD-10) LAD (lymphadenopathy), mediastinal ?R59.0 - Localized enlarged lymph nodes (ICD-10) Abdominal pain ?R10.9 - Unspecified abdominal pain (ICD-10) Interstitial lung disease ?J84.9 - Interstitial pulmonary disease, unspecified (ICD-10) Hypercholesteremia ?E78.00 - Pure hypercholesterolemia, unspecified (ICD-10) Hypertension ?I10 - Essential (primary) hypertension (ICD-10) Nephrolithiasis ?N20.0 - Calculus of kidney (ICD-10) Hepatomegaly ?R16.0 - Hepatomegaly, not elsewhere classified (ICD-10) Hepatic steatosis ?K76.0 - Fatty (change of) liver, not elsewhere classified (ICD-10) Diabetes ?E11.9 - Type 2 diabetes mellitus without complications (ICD-10) Surgical History (Updated 04/09/23 @ 09:20 by Judit Merlos RN) History of arthroscopy of knee ?Z98.890 - Other specified postprocedural states (ICD-10) History of lumbar fusion ?Z98.1 - Arthrodesis status (ICD-10) Status post lateral meniscus repair ?Z98.890 - Other specified postprocedural states (ICD-10) H/O arthroscopy of shoulder ?Z98.890 - Other specified postprocedural states (ICD-10) Social History (Updated 04/01/23 @ 14:13 by Judit Merlos RN) Within the past year, how often did you have a drink containing alcohol: never Score interpretation: A score less than 4 is consistent with normal alcohol consumption. Smoking status: Never smoker Second hand tobacco smoke exposure: No Non-prescribed substance use: denies use Previous occupational history: [employer] Known occupational exposures/hazards: No Highest level of school completed/degree received: some college, no degree Exam Constitutional Vital Signs, click to edit/add: Last Vital Signs Temp 98.2 F 08/22/24 14:25 Pulse 100 H 08/22/24 15:50 Resp 19 08/22/24 15:50 BP 100/60 08/22/24 16:20 Pulse Ox 97 08/22/24 15:50 O2 Del Method Room Air 08/22/24 15:29 Course Vital Signs Vital signs: Vital Signs Temperature 101.3 F H 08/22/24 12:10 Pulse Rate 167 H 08/22/24 12:10 Respiratory Rate 28 H 08/22/24 12:10 Blood Pressure 172/119 H 08/22/24 12:10 Pulse Oximetry 98 08/22/24 12:10 Oxygen Delivery Method Room Air 08/22/24 12:10 Temperature 98.2 F 08/22/24 14:25 Pulse Rate 100 H 08/22/24 15:50 Respiratory Rate 19 08/22/24 15:50 Blood Pressure 100/60 08/22/24 16:20 Pulse Oximetry 97 08/22/24 15:50 Oxygen Delivery Method Room Air 08/22/24 15:29 Medical Decision Making MDM Narrative Medical decision making narrative: Patient seen and examined: IV, fluids, sepsis order set has been initiated. Tylenol given for fever along with Dilaudid, Zofran and Compazine for nausea and vomiting Differential diagnosis includes but is not limited to: Sepsis, cystitis, pyelonephritis, abdominal pain, diverticulitis, mesenteric ischemia, obstruction, [place], shortness of breath, pneumonia Diagnostics and management: Patient will have laboratory studies Relevant laboratory interpretation: Patient has left shift, 11 bands, absolute bands 2.6, pH 7.44, CO2 16, lactic acid 6.1. Glucose 366. Magnesium was 1.3, total bilirubin 2.1, AST 174, ALT 74. Patient has moderate bacteria, 10-20 white blood cells, blood noted in the urine as well. BUN and creatinine show 23/1.9. Patient white blood cell count is 23, Radiological studies: Please see the formal radiological report. Patient had a ultrasound report that was done on April 02, 2024 that showed bilateral nonobstructing nephrolithiasis. Patient at that time Head: 15 x 13 x 7 and a 20 x 14 x 11 nonobstructing stone in the right kidney. Patient also had nonobstructing stone in the left kidney of 7 x [address] of the abdomen and pelvis shows right ureter stent proximal pigtail segment in the right renal pelvis. Right ureter stent distal pigtail segment situated within the prostatic segment of the urethra. Heterogeneous enhancement of the right kidney consistent with right-sided pyelonephritis. Mild to moderate stranding a round the right kidney, no acute process seen in the bladder and left kidney. Normal appendix. Reevaluation: 1315 patient's lactic acid is above 6. Patient's heart rate has improved to 108, blood pressure 160s over 110s, patient did not have his metoprolol this morning, patient will be given IV dose of metoprolol 5 mg. 1415 patient and his were updated on patient's white blood cells, elevated troponin, lactic acid of 6.1, magnesium, bandemia, and other lab abnormalities. They understand that we are waiting for CT to return of the abdomen pelvis. Patient has no heart history, no congestive heart failure history. Patient Still has his gallbladder and appendix. Patient's pain has improved significantly, nausea has improved as well after the Zofran and Compazine have been given. 1440 CT of the abdomen pelvis has returned, right ureter stent proximal pigtail segment in the right renal pelvis. Right ureter stent distal pigtail segment situated within the prostatic segment of the urethra. Heterogeneous enhancement of the right kidney consistent with right-sided pyonephritis. Mild to moderate stranding around the right kidney. No acute process seen in the bladder and left kidney. Normal appendix. Other nonspecific findings. No abscess or hematoma. 1500 I have discussed the CT report with the patient and then eventually his as well. They are aware of slight elevation of troponin. They are aware of right pyelonephritis. A copy of the CAT scan report was given to the patient and his . 1520 patient troponin elevated from 123-199. Patient lactic acid had improved from 6.1 to 3.3. Patient would like to be admitted to [facility] to his PCP, Dr. CAMACHO. They are aware that Dr. Dukes is consumer marketing specialist today, Dr. Sanches is not. They agree to be admitted to [facility] and see if patient does improve in the next several days which she has improved in the ER. Dr. Sanches is urologist to place the stent at [facility] 3 weeks ago. He has an appoint with Dr. Sanches on . Dr Camacho is aware of elevation in troponin. He will continue to monitor. Patient was given 2 baby aspirin. Patient blood pressure has been done manually, patient blood pressure when he was transferred Shared decision making: I discussed with the patient the necessary laboratory findings and radiological findings. Social barriers to healthcare: There are no food insecurities, there is no issue with transportation, there are no insurance barriers. Disposition: I discussed with the patient risk and benefits of sepsis, right pyelonephritis. Patient feels much better. Patient did not want any more medication for pain or nausea when he was transferred upstairs. Patient blood pressure was in the 100s/60s when he was transferred. When Gamal KIRK placed the Verdin catheter, there were no strings at the urethral meatus they were noted associated with patient's ureter stent. No strings were seen by Gamal KIRK when he placed Verdin catheter. Verdin catheter was initially placed because there was a concern for possible urinary retention and also to monitor I's and O's because patient has been having urinary incontinence. Measuring I's and O's secondary to sepsis. Patient has been given 3 L of lactated Ringer's in the ER. Patient did not have much urine output when Verdin catheter was placed. See Gamal KIRKlogistics clerk. Critical care time 45 minutes exclusive from separate billable procedures that were performed. The following was considered in the determination of critical care but not limited to the level of medical decision making, intensive cardiac and/or respiratory monitoring, frequent vital sign monitoring, evaluation of laboratory studies, evaluation of radiographic studies, oxygen monitoring, and constant monitoring and speaking to family at bedside Lab Data Labs: Lab Results 08/22/24 08/22/24 08/22/24 Range/Units 12:23 12:24 12:33 WBC 23.7 H (4.0-11.0) 10^3/uL RBC 5.22 (4.70-6.10) 10^6/uL Hgb 15.8 (14.0-18.0) g/dL Hct 44.9 (42.0-54.0) % MCV 86.0 (80.0-94.0) fL MCH 30.3 (25.9-34.0) pg MCHC 35.2 (29.9-35.2) g/dL RDW 12.7 (11.0-15.0) % Plt Count 199 (150-450) 10^3/uL MPV 12.2 (9.5-13.5) fL Seg Neuts % (Manual) 79.0 H (43.0-75.0) Band Neutrophils % 11.0 H (0-5) % Lymphocytes % (Manual) 4.0 L (20.5-60.0) % Monocytes % (Manual) 6.0 (1.7-12.0) % Eosinophils % (Manual) 0.0 L (0.9-7.0) % Basophils % (Manual) 0.0 L (0.2-2.0) % Neutrophils # (Manual) 18.72 H (1.4-6.5) 10^3/uL Band Neutrophils # 2.6 H (0.0-0.3) 10^3/uL Lymphocytes # (Manual) 0.94 L (1.20-3.80) 10^3/uL Monocytes # (Manual) 1.42 H (0.30-0.80) 10^3/uL Eosinophils # (Manual) 0.00 (0.00-0.70) 10^3/uL Basophils # (Manual) 0.00 (0.00-0.10) 10^3/uL PT 11.7 H (9.0-11.6) sec INR 1.12 VBG pH 7.441 H (7.330-7.430) VBG pCO2 16.8 L (40.0-52.0) mmHg Sodium 126 L (136-145) mmol/L Potassium 3.9 (3.5-5.1) mmol/L Chloride 89 L (98-107) mmol/L Carbon Dioxide 13.8 L (21.0-32.0) mmol/L Anion Gap 27.1 BUN 23.0 H (7.0-18.0) mg/dL Creatinine 1.90 H (0.70-1.30) mg/dL Est GFR ( Amer) 46 L (>=60 mL/min/1.73m^2) Est GFR (Non-Af Amer) 38 L (>=60 mL/min/1.73m^2) BUN/Creatinine Ratio 12.1 Glucose 390 H (74-106) mg/dL Lactate 6.1 H* (0.4-2.0) mmol/L Calcium 9.5 (8.5-10.1) mg/dL Magnesium 1.3 L (1.8-2.4) mg/dL Total Bilirubin 2.1 H (0.2-1.0) mg/dL AST 174 H (15-37) U/L ALT 74 H (16-63) U/L Alkaline Phosphatase 113 (46-116) U/L Troponin I High Sens 123.5 H* (4.0-76.1) pg/mL NT-Pro-B Natriuret Pep 2146.0 H* (<=900.0) pg/mL Total Protein 7.9 (6.4-8.2) g/dL Albumin 3.3 L (3.4-5.0) g/dL Globulin 4.6 g/dL Albumin/Globulin Ratio 0.7 Urine Color (YELLOW) Urine Clarity (CLEAR) Urine pH (5.0-9.0) Ur Specific [place] (1.005-1.025) Urine Protein (NEG/TRACE) mg/dL Urine Glucose (UA) (NEGATIVE) mg/dL Urine Ketones (NEGATIVE) mg/dL Urine Occult Blood (NEGATIVE) Urine Nitrite (NEGATIVE) Urine Bilirubin (NEGATIVE) Urine Urobilinogen (0.2-1.0) EU/dL Ur Leukocyte Esterase (NEGATIVE) Urine RBC (0-2) #/HPF Urine WBC (NONE SEEN) #/HPF Ur Squamous Epith Cells (NONE/RARE) #/LPF Urine Crystals (None Seen) #/HPF Urine Bacteria (NONE SEEN) #/HPF Urine Casts (NONE SEEN) #/LPF Fine Granular Casts Urine Mucus (NONE SEEN) Ur Culture Indicated? POC Glucose 366 H (74-106) mg/dL 08/22/24 08/22/24 Range/Units 14:20 14:48 WBC (4.0-11.0) 10^3/uL RBC (4.70-6.10) 10^6/uL Hgb (14.0-18.0) g/dL Hct (42.0-54.0) % MCV (80.0-94.0) fL MCH (25.9-34.0) pg MCHC (29.9-35.2) g/dL RDW (11.0-15.0) % Plt Count (150-450) 10^3/uL MPV (9.5-13.5) fL Seg Neuts % (Manual) (43.0-75.0) Band Neutrophils % (0-5) % Lymphocytes % (Manual) (20.5-60.0) % Monocytes % (Manual) (1.7-12.0) % Eosinophils % (Manual) (0.9-7.0) % Basophils % (Manual) (0.2-2.0) % Neutrophils # (Manual) (1.4-6.5) 10^3/uL Band Neutrophils # (0.0-0.3) 10^3/uL Lymphocytes # (Manual) (1.20-3.80) 10^3/uL Monocytes # (Manual) (0.30-0.80) 10^3/uL Eosinophils # (Manual) (0.00-0.70) 10^3/uL Basophils # (Manual) (0.00-0.10) 10^3/uL PT (9.0-11.6) sec INR VBG pH (7.330-7.430) VBG pCO2 (40.0-52.0) mmHg Sodium (136-145) mmol/L Potassium (3.5-5.1) mmol/L Chloride (98-107) mmol/L Carbon Dioxide (21.0-32.0) mmol/L Anion Gap BUN (7.0-18.0) mg/dL Creatinine (0.70-1.30) mg/dL Est GFR ( Amer) (>=60 mL/min/1.73m^2) Est GFR (Non-Af Amer) (>=60 mL/min/1.73m^2) BUN/Creatinine Ratio Glucose (74-106) mg/dL Lactate 3.3 H* (0.4-2.0) mmol/L Calcium (8.5-10.1) mg/dL Magnesium (1.8-2.4) mg/dL Total Bilirubin (0.2-1.0) mg/dL AST (15-37) U/L ALT (16-63) U/L Alkaline Phosphatase (46-116) U/L Troponin I High Sens 199.6 H* (4.0-76.1) pg/mL NT-Pro-B Natriuret Pep (<=900.0) pg/mL Total Protein (6.4-8.2) g/dL Albumin (3.4-5.0) g/dL Globulin g/dL Albumin/Globulin Ratio Urine Color [place] A (YELLOW) Urine Clarity Sl cloudy (CLEAR) Urine pH 6.0 (5.0-9.0) Ur Specific [place] 1.020 (1.005-1.025) Urine Protein >=300 A (NEG/TRACE) mg/dL Urine Glucose (UA) >=1000 A (NEGATIVE) mg/dL Urine Ketones 40 A (NEGATIVE) mg/dL Urine Occult Blood Large A (NEGATIVE) Urine Nitrite Negative (NEGATIVE) Urine Bilirubin Small A (NEGATIVE) Urine Urobilinogen 1.0 (0.2-1.0) EU/dL Ur Leukocyte Esterase Trace A (NEGATIVE) Urine RBC >100 A (0-2) #/HPF Urine WBC 10-20 A (NONE SEEN) #/HPF Ur Squamous Epith Cells Few A (NONE/RARE) #/LPF Urine Crystals None seen (None Seen) #/HPF Urine Bacteria Moderate A (NONE SEEN) #/HPF Urine Casts Seen A (NONE SEEN) #/LPF Fine Granular Casts Few Urine Mucus Small A (NONE SEEN) Ur Culture Indicated? No POC Glucose (74-106) mg/dL ECG Data Attestation: I personally reviewed and interpreted this ECG as follows: (EKG interpretation. Tachycardic rhythm, narrow complex QRS, heart rate 165.) Discharge Plan Discharge Chief Complaint: Shortness of Breath/Dyspnea Clinical Impression: Sepsis, Pyelonephritis of right kidney, Hypomagnesemia, Bandemia, Dehydration, Hyperglycemia Patient Disposition: Admitted As Inpatient Time of Disposition Decision: 15:36 Condition: Serious
--- NOTE | 2024-08-22 12:30 | PC.NURSE ---
Oxygen initiated for fast heart rate at 2L
--- NOTE | 2024-08-22 12:33 | ECG_ITS ---
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 Measurements Intervals [place] Rate: 104 P: 53 MN: 132 QRS: 24 QRSD: 108 T: 52 QT: 358 QTc: 418 Interpretive Statements 1120 Sinus tachycardia 2440 Incomplete right bundle branch block abnormal ECG Compared to ECG 08/22/2024 12:13:46 Indeterminate axis no longer present Heart rate has decreased Electronically Signed On 08-23-2024 20:18:12 EDT by BO PARTIDA M.D.
[2024-08-22 12:34] LABS: Glucometer 366 mg/dL (74-106)
[2024-08-22] MEDS: HYDROMORPHONE HCL 1 MG/ML CARTRIDGE IV (12:36)
[2024-08-22] MEDS: ONDANSETRON PF 4 MG/2 ML VIAL IV ×2 (12:36→14:52)
[2024-08-22] MEDS: PROCHLORPERAZINE 10 MG/2 ML VIAL IV (12:50)
[2024-08-22] MEDS: LACTATED RINGER'S SOLUTION 1,000 ML 999 ML IV (12:50)
[2024-08-22] MEDS: ACETAMINOPHEN 500 MG TABLET PO (12:50)
[2024-08-22 12:53] LABS: PCO2 VBG 16.8 mmHg (40.0-52.0); pH VBG 7.441 (7.330-7.430)
[2024-08-22 12:54] LABS: Hematocrit 44.9 % (42.0-54.0); Hemoglobin 15.8 g/dL (14.0-18.0); Mean Corpuscular HGB Conc 35.2 g/dL (29.9-35.2); Mean Corpuscular Hemoglobin 30.3 pg (25.9-34.0); Mean Platelet Volume 12.2 fL (9.5-13.5); Platelet Count 199 10^3/uL (150-450); Red Blood Count 5.22 10^6/uL (4.70-6.10); Red Cell Distribution Width 12.7 % (11.0-15.0); White Blood Count 23.7 10^3/uL (4.0-11.0)
[2024-08-22 13:02] LABS: INR 1.12; Prothrombin Time 11.7 sec (9.0-11.6)
[2024-08-22 13:11] LABS: Band Neutrophils Absolute 2.6 10^3/uL (0.0-0.3); Lymphocytes Absolute Manual 0.94 10^3/uL (1.20-3.80); Monocytes Absolute Manual 1.42 10^3/uL (0.30-0.80); Segmented Neut Absolute Manual 18.72 10^3/uL (1.4-6.5)
[2024-08-22 13:13] LABS: Lactate/Lactic Acid 6.1 mmol/L (0.4-2.0)
[2024-08-22 13:21] LABS: Alanine Aminotransferase 74 U/L (16-63); Albumin Globulin Ratio 0.7; Albumin Level 3.3 g/dL (3.4-5.0); Alkaline Phosphatase 113 U/L (46-116); Anion Gap 27.1; Aspartate Amino Transferase 174 U/L (15-37); BUN Creatinine Ratio 12.1; Bilirubin Total 2.1 mg/dL (0.2-1.0); Calcium 9.5 mg/dL (8.5-10.1); Carbon Dioxide 13.8 mmol/L (21.0-32.0); Chloride 89 mmol/L (98-107); Estimated GFR (African America 46 (>=60 mL/min/1.73m^2); Estimated GFR (Non-African Ame 38 (>=60 mL/min/1.73m^2); Globulin 4.6 g/dL; Glucose 390 mg/dL (74-106); Potassium 3.9 mmol/L (3.5-5.1); Sodium 126 mmol/L (136-145); Total Protein 7.9 g/dL (6.4-8.2)
[2024-08-22] MEDS: METOPROLOL TARTRATE 5 MG/5 ML VIAL IVP (13:21)
[2024-08-22 13:23] LABS: Magnesium 1.3 mg/dL (1.8-2.4)
[2024-08-22 13:25] LABS: Troponin I High Sensitivity 123.5 pg/mL (4.0-76.1)
[2024-08-22] MEDS: PIPERACILLIN SODIUM/TAZOBACTAM 4.5 GM in 0.9 % SODIUM CHLORIDE 50 ML IV (14:21)
[2024-08-22] MEDS: LACTATED RINGER'S SOLUTION 1,000 ML 1000 ML IV ×2 (14:21→15:50)
[2024-08-22] MEDS: ASPIRIN 81 MG TAB.CHEW 162 MG PO (14:35)
[2024-08-22 14:48] LABS: Bilirubin Urine SMALL (NEGATIVE); Blood Urine LARGE (NEGATIVE); Clarity Urine SL CLOUDY (CLEAR); Glucose Urine UA >=1000 mg/dL (NEGATIVE); Ketones Urine 40 mg/dL (NEGATIVE); Leukocyte Esterase Urine TRACE (NEGATIVE); Nitrite Urine NEGATIVE (NEGATIVE); Protein Urine >=300 mg/dL (NEG/TRACE)
[2024-08-22] MEDS: MAGNESIUM OXIDE 400 MG TABLET 800 MG PO (14:52)
[2024-08-22] MEDS: MAGNESIUM SULFATE IN WATER 2 GM/50 ML PREMIX IV (14:55)
[2024-08-22 14:57] LABS: Color Urine PINK (YELLOW)
[2024-08-22 15:00] LABS: Bacteria Urine MODERATE #/HPF (NONE SEEN); RBC Urine >100 #/HPF (0-2)
[2024-08-22 15:01] LABS: Cast Seen? SEEN #/LPF (NONE SEEN); Crystals Seen? None Seen #/HPF (None Seen); Fine Granular Casts Urine FEW; Mucus Urine SMALL (NONE SEEN); Squamous Epithelial Cell Urine FEW #/LPF (NONE/RARE); Urine Culture Indicated NO
[2024-08-22 15:14] LABS: Lactate/Lactic Acid 3.3 mmol/L (0.4-2.0); Troponin I High Sensitivity 199.6 pg/mL (4.0-76.1)
[2024-08-22] MEDS: HYDROCODONE/ACET 5-325 MG TABLET 1 TAB PO (15:50)
--- OUTSIDE RECORDS SUMMARY | 2024-08-22 16:15 | XMS_ITS | CCD ---
Author Organization [facility] Care Team Providers Care Component Engineer Name Role Phone SAVANAH, GICAOMO H. Unavailable Unavailable SAVANAH, GIACOMO H. Unavailable [...] Attending Unavailable Doron Zuñiga Primary Care Physician [phone] JAIME KAPLAN Attending Unavailable JAIME KAPLAN Admitting [...] Medication Allergies] Propensity to adverse reactions (disorder) [facility] Repository Medications Current Medications Medication [...] On Unit Fenofibrate Acti ve Gentamicin Sulfate (SNF) (1 source) Start: 10-11-2018 take 2 drop(s) [...] Start: 07-30-2024 take 1 capsule by mo [facility] once daily at mealtime 0.8 mg, oral, [...] day(s), # 60 cap(s), Refills(s) 11, Pharmacy: [facility] #[id number], 180, cm, 03/30/24 9:46:00 EST, Height/Length Dosing, [...] 02-05-2023 Chronic Other aftercare (1 source) 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 3 mg/dL [facility] Chloride [Moles/Vol] 101 mmol/L 98 - 10 7 mmol/L [facility] CO2 [Moles/Vol] 27 mmol/L 21 - 32 mmol/L [facility] Creatinine [Mass/Vol] 1.03 mg/dL 0.50 - 1.30 mg/dL [facility] GFR/1.73 sq M.predicted among non-blacks MDRD (S/P/Bld) [Vol rate/Area] 88 mL/min/{1.73_m2} - PINF [facility] Comment on above: Calculations of jeanette mated GFR are performed using the 2020 CKD-EPI Study Refit equation without the race variable for the IDMS-Traceable creatinine methods. https://jasn.asnjournals.org/content//ASN.2347377 988 Glucose [Mass/Vol] 171 mg/dL High 74 - 99 mg/dL [facility] Interpretation and review of laboratory results Abnormal [facility] Potassium [Moles/Vol] 3.6 mmol/L 3.5 - 5.3 mmol/L [facility] Sodium [Moles/Vol] 138 mmol/L 136 - 145 mmol/L [facility] Urea nitrogen [Mass/Vol] 15 mg/dL 6 - 23 mg/dL [facility] Anion gap [Moles/Vol] 14 mmol/L Normal 10-20 [facility] Comment on above: Performed By: #### 5 8077-9 #### CHARISMA AVILES ([id number]) [facility] [address] [place] [address] Calcium [Mass/Vol] 8.9 mg/dL Normal 8.6-10.3 [facility] Comment on above: Performed By: #### 5 8077-9 #### CHARISMA AVILES ([id number]) [facility] ([facility] [address] [place] [address] Chloride [Moles/Vol] 101 mmol/L Normal 98-107 [facility] Comment on above: Performed By: #### 5 8077-9 #### CHARISMA AVILES ([id number]) [facility] ([facility] [address] [place] [address] CO2 [Moles/Vol] 27 mmol/L Normal 21-32 [facility] Comment on above: Performed By: #### 5 8077-9 #### CHARISMA AVILES ([id number]) [facility] ([facility] [address] [place] [address] Creatinine [Mass/Vol] 1.03 mg/dL Normal 0.50-1.30 [facility] Comment on above: Performed By: #### 5 8077-9 #### CHARISMA AVILES ([id number]) [facility] ([facility] [address] [place] [address] Glomerular filtration rate/1.73 sq M.predicted 88 mL/min/1.73m*2 Normal >60 [facility] Comment on above: Result Comment: Calc ulations of estimated GFR are performed using the 2020 CKD-EPI Study Refit equation without the race variable for the IDMS-Traceable creatinine methods. https://jasn.asnjournals.org/content//ASN.8579491 988 Performed By: #### 5 8077-9 #### CHARISMA AVILES ([id number]) [facility] ([facility] [address] [place] [address] Glucose [Mass/Vol] 171 mg/dL High 74-99 [facility] Comment on above: Performed By: #### 5 8077-9 #### CHARISMA AVILES ([id number]) [facility] ([facility] [address] [place] [address] Potassium [Moles/Vol] 3.6 mmol/L Normal 3.5-5.3 [facility] Comment on above: Performed By: #### 5 8077-9 #### CHARISMA AVILES ([id number]) [facility] ([facility] [address] [place] [address] Sodium [Moles/Vol] 138 mmol/L Normal 136-145 [facility] Comment on above: Performed By: #### 5 8077-9 #### CHARISMA AVILES ([id number]) [facility] ([facility] [address] [place] [address] Urea nitrogen [Mass/Vol] 15 mg/dL Normal 6-23 [facility] Comment on above: Performed By: #### 5 8077-9 #### CHARISMA AVILES ([id number]) [facility] ([facility] [address] [place] [address] CBC panel Auto (Bld)on 07-30 Erythrocyte distribution width (RBC) [Ratio] 12.9 % 11.5 - 14.5 % [facility] Hematocrit (Bld) [Volume fraction] 40.6 % Low 41.0 - 52.0 % [facility] Hemoglobin (Bld) [Mass/Vol] 13.6 g/dL 13.5 - 17.5 g/dL [facility] Interpretation and review of laboratory results Abnormal [facility] MCH (RBC) [Entitic mass] 29.4 pg 26.0 - 34.0 pg [facility] MCHC (RBC) [Mass/Vol] 33.5 g/dL 32.0 - 36.0 g/dL [facility] MCV (RBC) [Entitic vol] 88 fL 80 - 100 fL [facility] Nucleated RBC/100 WBC (Bld) [Ratio] 0 % [facility] Platelets (Bld) [#/Vol] 211 10*3/uL [facility] RBC (Bld) [#/Vol] 4.62 10*6/uL [facility] WBC (Bld) [#/Vol] 9.5 10*3/uL [facility] Erythrocyte distribution width (RBC) [Ratio] 12.9 % Normal 11.5-14.5 [facility] Comment on above: Performed By: #### 5 8077-9 #### CHARISMA AVILES ([id number]) [facility] ([facility] [address] [place] [address] Hematocrit (Bld) [Volume fraction] 40.6 % Low 41.0-52.0 [facility] Comment on above: Performed By: #### 5 8077-9 #### CHARISMA AVILES ([id number]) [facility] ([facility] [address] [place] [address] Hemoglobin (Bld) [Mass/Vol] 13.6 g/dL Normal 13.5-17.5 [facility] Comment on above: Performed By: #### 5 8077-9 #### CHARISMA AVILES ([id number]) [facility] ([facility] [address] [place] [address] MCH (RBC) [Entitic mass] 29.4 pg Normal 26.0-34.0 [facility] Comment on above: Performed By: #### 5 8077-9 #### CHARISMA AVILES ([id number]) [facility] ([facility] [address] [place] [address] MCHC (RBC) [Mass/Vol] 33.5 g/dL Normal 32.0-36.0 [facility] Comment on above: Performed By: #### 5 8077-9 #### CHARISMA AVILES ([id number]) [facility] ([facility] [address] [place] [address] MCV (RBC) [Entitic vol] 88 fL Normal 80-100 [facility] Comment on above: Performed By: #### 5 8077-9 #### CHARISMA AVILES ([id number]) [facility] ([facility] [address] [place] [address] Nucleated RBC/100 WBC (Bld) [Ratio] 0.0 /100 WBCs Normal 0.0-0.0 [facility] Comment on above: Performed By: #### 5 8077-9 #### CHARISMA AVILES (97825) [facility] ([facility] [address] [place] [address] Platelets (Bld) [#/Vol] 211 x10*3/uL Normal 150-450 [facility] Comment on above: Performed By: #### 5 8077-9 #### CHARISMA AVILES ([id number]) [facility] ([facility] [address] [place] [address] RBC (Bld) [#/Vol] 4.62 x10*6/uL Normal 4.50-5.90 [facility] Comment on above: Performed By: #### 5 8077-9 #### CHARISMA AVILES ([id number]) [facility] ([facility] [address] [place] [address] WBC (Bld) [#/Vol] 9.5 x10*3/uL Normal 4.4-11.3 [facility] Comment on above: Performed By: #### 5 8077-9 #### CHARISMA AVILES ([id number]) [facility] ([facility] [address] [place] [address] Basic metabolic 2000 panelon 07-29-2024 Anion gap [Moles/Vol] 18 mmol/L 10 - 20 mmol/L [facility] Calcium [Mass/Vol] 8.8 mg/dL 8.6 - 10. 3 mg/dL [facility] Chloride [Moles/Vol] 101 mmol/L 98 - 10 7 mmol/L [facility] CO2 [Moles/Vol] 22 mmol/L 21 - 32 mmol/L [facility] Creatinine [Mass/Vol] 1.09 mg/dL 0.50 - 1.30 mg/dL [facility] GFR/1.73 sq M.predicted among non-blacks MDRD (S/P/Bld) [Vol rate/Area] 82 mL/min/{1.73_m2} - PINF [facility] Comment on above: Calculations of jeanette mated GFR are performed using the 2020 CKD-EPI Study Refit equation without the race variable for the IDMS-Traceable creatinine methods. https://jasn.asnjournals.org/content//ASN.6907834 988 Glucose [Mass/Vol] 266 mg/dL High 74 - 99 mg/dL [facility] Interpretation and review of laboratory results Abnormal [facility] Potassium [Moles/Vol] 4.1 mmol/L 3.5 - 5.3 mmol/L [facility] Sodium [Moles/Vol] 137 mmol/L 136 - 145 mmol/L [facility] Urea nitrogen [Mass/Vol] 17 mg/dL 6 - 23 mg/dL [facility] Anion gap [Moles/Vol] 18 mmol/L Normal 10-20 [facility] Comment on above: Performed By: #### 5 8077-9 #### CHARISMA AVILES ([id number]) [facility] ([facility] [address] [address] Calcium [Mass/Vol] 8.8 mg/dL Normal 8.6-10.3 [facility] Comment on above: Performed By: #### 5 8077-9 #### CHARISMA AVILES ([id number]) [facility] ([facility] [address] [place] [address] Chloride [Moles/Vol] 101 mmol/L Normal 98-107 [facility] Comment on above: Performed By: #### 5 8077-9 #### CHARISMA AVILES ([id number]) [facility] ([facility] [address] [place] [address] CO2 [Moles/Vol] 22 mmol/L Normal 21-32 [facility] Comment on above: Performed By: #### 5 8077-9 #### CHARISMA AVILES ([id number]) [facility] ([facility] [address] [place] [address] Creatinine [Mass/Vol] 1.09 mg/dL Normal 0.50-1.30 [facility] Comment on above: Performed By: #### 5 8077-9 #### CHARISMA AVILES ([id number]) [facility] ([facility] [address] [place] [address] Glomerular filtration rate/1.73 sq M.predicted 82 mL/min/1.73m*2 Normal >60 [facility] Comment on above: Result Comment: Calc ulations of estimated GFR are performed using the 2020 CKD-EPI Study Refit equation without the race variable for the IDMS-Traceable creatinine methods. https://jasn.asnjournals.org/content/early/ASN.1020014 988 Performed By: #### 5 8077-9 #### CHARISMA AVILES ([id number]) [facility] ([facility] [address] [place] [address] Glucose [Mass/Vol] 266 mg/dL High 74-99 [facility] Comment on above: Performed By: #### 5 8077-9 #### CHARISMA AVILES ([id number]) [facility] ([facility] [address] [place] [address] Potassium [Moles/Vol] 4.1 mmol/L Normal 3.5-5.3 [facility] Comment on above: Performed By: #### 5 8077-9 #### CHARISMA AVILES ([id number]) [facility] ([facility] [address] [place] [address] Sodium [Moles/Vol] 137 mmol/L Normal 136-145 [facility] Comment on above: Performed By: #### 5 8077-9 #### CHARISMA AVILES ([id number]) [facility] ([facility] [address] [place], [place] [id number] Urea nitrogen [Mass/Vol] 17 mg/dL Normal 6-23 [facility] Comment on above: Performed By: #### 5 8077-9 #### CHARISMA AVILES ([id number]) [facility] ([facility] [address] [place] [address] CALCULI (STONE) ANALYSISon 0 - Appearance (Stone) See Note Normal [facility] Comment on above: Order Comment: OVER is reported when the result is greater than the clinically reportable range. Result Comment: Spec imen consists of numerous brown and parker calculi fragments. The total weight is 507 mg. Performed By: #### 5 8077-9 #### CHARISMA AVILES ([id number]) [facility] ([facility] [address] [place] [address] Composition Nom (Stone) See Note Normal [facility] Comment on above: Order Comment: OVER [...] composition determined by FTIR analysis. Performed By: [facility] [address] [place] [address] Inking Machine Tender: Al Dumont MD, PhD CLIA Number: [id number] Performed By: #### 5 8077-9 #### CHARISMA AVILES ([id number]) [facility] ([facility] [address] [place] [address] Specimen weight (Unsp spec) 507 mg Normal [facility] Comment on above: Order Comment: OVER is reported when the result is greater than the clinically reportable range. Performed By: #### 5 8077-9 #### CHARISMA AVILES ([id number]) [facility] ([facility] [address] [place] [address] CBC panel Auto (Bld)on 07-29 Erythrocyte distribution width (RBC) [Ratio] 12.5 % 11.5 - 14.5 % [facility] Hematocrit (Bld) [Volume fraction] 40.5 % Low 41.0 - 52.0 % [facility] Hemoglobin (Bld) [Mass/Vol] 13.8 g/dL 13.5 - 17.5 g/dL [facility] Interpretation and review of laboratory results Abnormal [facility] MCH (RBC) [Entitic mass] 30.1 pg 26.0 - 34.0 pg [facility] MCHC (RBC) [Mass/Vol] 34.1 g/dL 32.0 - 36.0 g/dL [facility] MCV (RBC) [Entitic vol] 88 fL 80 - 100 fL [facility] Nucleated RBC/100 WBC (Bld) [Ratio] 0 % [facility] Platelets (Bld) [#/Vol] 168 10*3/uL [facility] RBC (Bld) [#/Vol] 4.59 10*6/uL [facility] WBC (Bld) [#/Vol] 9.4 10*3/uL [facility] Erythrocyte distribution width (RBC) [Ratio] 12.5 % Normal 11.5-14.5 [facility] Comment on above: Performed By: #### 5 8410-2 #### CHARISMA AVILES ([id number]) [facility] ([facility] [address] [place] [address] Hematocrit (Bld) [Volume fraction] 40.5 % Low 41.0-52.0 [facility] Comment on above: Performed By: #### 5 8410-2 #### CHARISMA AVILES (21411) [facility] ([facility] [address] [place] [address] Hemoglobin (Bld) [Mass/Vol] 13.8 g/dL Normal 13.5-17.5 [facility] Comment on above: Performed By: #### 5 8410-2 #### CHARISMA AVILES ([id number]) [facility] ([facility] [address] [place] [address] MCH (RBC) [Entitic mass] 30.1 pg Normal 26.0-34.0 [facility] Comment on above: Performed By: #### 5 8410-2 #### CHARISMA AVILES ([id number]) [facility] ([facility] [address] [place] [address] MCHC (RBC) [Mass/Vol] 34.1 g/dL Normal 32.0-36.0 [facility] Comment on above: Performed By: #### 5 8410-2 #### CHARISMA AVILES (59704) [facility] ([facility] [address] [place] [address] MCV (RBC) [Entitic vol] 88 fL Normal 80-100 [facility] Comment on above: Performed By: #### 5 8410-2 #### CHARISMA AVILES (08771) [facility] ([facility] [address] [place] [address] Nucleated RBC/100 WBC (Bld) [Ratio] 0.0 /100 WBCs Normal 0.0-0.0 [facility] Comment on above: Performed By: #### 5 8410-2 #### CHARISMA AVILES ([id number]) [facility] ([facility] [address] [place] [address] Platelets (Bld) [#/Vol] 168 x10*3/uL Normal 150-450 [facility] Comment on above: Performed By: #### 5 8410-2 #### CHARISMA AVILES ([id number]) [facility] ([facility] [address] [place] [address] RBC (Bld) [#/Vol] 4.59 x10*6/uL Normal 4.50-5.90 [facility] Comment on above: Performed By: #### 5 8410-2 #### CHARISMA AVILES (07886) [facility] ([facility] [address] [place] [address] WBC (Bld) [#/Vol] 9.4 x10*3/uL Normal 4.4-11.3 [facility] Comment on above: Performed By: #### 5 8410-2 #### CHARISMA AVILES ([id number]) [facility] ([facility] [address] [place] [address] Coagulation tissue factor in ducedon 07-29-2024 PT Coag (PPP) [Time] 9.8 s Normal 9.8-12.4 [facility] Comment on above: Performed By: #### 5 902-2 #### CHARISMA AVILES ([id number]) [facility] ([facility] [address] [place] [address] FL FLUORO IMAGES NO CHARGEon 07-29-2024 FL FLUORO IMAGES NO CHARGE These images are not reportable by radiology and will not be interpreted by Radiologists. Normal [facility] Glucose Test strip manual (B ld) [Mass/Vol]on 07-29-2024 Glucose [Mass/Vol] 246 mg/dL High 74 - 99 mg/dL [facility] Interpretation and review of laboratory results Abnormal [facility] Glucose [Mass/Vol] 246 mg/dL High 74-99 [facility] Comment on above: Performed By: #### 5 8077-9 #### CHARISMA AVILES (16659) [facility] ([facility] [address] [place] [address] Glucose [Mass/Vol] 187 mg/dL High 74 - 99 mg/dL [facility] Interpretation and review of laboratory results Abnormal [facility] Glucose [Mass/Vol] 187 mg/dL High 74-99 [facility] Comment on above: Performed By: #### 2 341-6 #### CHARISMA AVILES (10692) [facility] [address] [place] [address] IR NEPHROURETERAL PLACEME NTon 07-29-2024 IR NEPHROURETERAL PLACEMENT Interpreted By: Radhames Romero, STUDY: IR NEPHROURETERAL PLACEMENT; 07/29/2024 12:14 pm INDICATION: Signs/Symptoms:KIDNEY STONE. COMPARISON: None. ACCESSION NUMBER(S): [id number] ORDERING CLINICIAN: SOFIE DUBRIN TECHNIQUE: BIOENGINEER: Radhames Romero MD CONSENT: The patient was [...] and versed. Total intra-service sedation time from 1615-6407 hours (68 minutes). The physician was assisted [...] removed over the wire and a 5 [place] coaxial dilator was placed over the wire. The inner dilator and wire were removed. A small amount of contrast was injected confirming location of the catheter. This demonstrates stones within the system, but no hydronephrosis. Through the catheter a 0.035 wire was advanced to the urinary bladder. The coaxial dilator was removed and a 5 [place] end hole catheter ([employer]) was advanced over the wire with the [...] Radhames Romero 07/30/2024 12:28 PM Dictation workstation: [id number] [facility] PT Coag (PPP) [Time]on 07-29 INR Coag (PPP) [Relative time] 0.9 {INR} 0.9 - 1.1 [facility] Interpretation and review of laboratory results [facility] INR Coag (PPP) [Relative time] 0.9 Normal 0.9-1.1 [facility] Comment on above: Performed By: #### 5 902-2 #### CHARISMA AVILES ([id number]) [facility] [address] [place] [address] Protime-INRon 07-29-2024 PT Coag (PPP) [Time] 9.8 s [facility] US GUIDED ABSCESS FLUID MARCELLO ECTION DRAINAGEon 07-29-2024 US GUIDED ABSCESS FLUID COLLECTION DRAINAGE Interpreted By: Radhames Romero, STUDY: IR NEPHROURETERAL PLACEMENT; 07/29/2024 12:14 pm INDICATION: Signs/Symptoms:KIDNEY STONE. COMPARISON: None. ACCESSION NUMBER(S): [id number] ORDERING CLINICIAN: SOFIE DURBIN TECHNIQUE: BIOENGINEER: Radhames Romero MD CONSENT: The patient was [...] and versed. Total intra-service sedation time from 0098-4665 hours (68 minutes). The physician was assisted [...] removed over the wire and a 5 [place] coaxial dilator was placed over the wire. The inner dilator and wire were removed. A small amount of contrast was injected confirming location of the catheter. This demonstrates stones within the system, but no hydronephrosis. Through the catheter a 0.035 wire was advanced to the urinary bladder. The coaxial dilator was removed and a 5 [place] end hole catheter ([employer]) was advanced over the wire with the [...] Radhames Romero 07/30/2024 12:28 PM Dictation workstation: [id number] [facility] Comment on above: Order Comment: OVER is reported when the result is greater than the clinically reportable range. XR tomography Unspecified giacomo dy regionon 07-29-2024 These images are not reportable by radiology and will not be interpreted by Radiologists. IMAGING ECG 12 leadOrdered By: Geremias Orozco on 07-28-2024 Atrial Rate 72 BPM [facility] Work Phone: P Helper 42 degrees [facility] Work Phone: P Offset 186 ms [facility] Work Phone: P Onset 139 ms [facility] Work Phone: VA Interval 136 ms [facility] Work Phone: Q Onset 207 ms [facility] Work Phone: QRS Count 11 beats [facility] Work Phone: QRS Duration 108 ms [facility] Work Phone: QT Interval 410 ms [facility] Work Phone: QTC Calculation(Bazett) 448 ms [facility] Work Phone: QTC Fredericia 435 ms [facility] Work Phone: R Helper -31 degrees [facility] Work Phone: T Helper 64 degrees [facility] Work Phone: T Offset 412 ms [facility] Work Phone: Ventricular Rate 72 BPM [facility] [facility] Work Phone: [facility] Work Phone: ECG 12 leadon 07-28-2024 Normal [...] Geremias Orozco ([id number]) on 07/28/2024 12:32:46 PM [facility] Work Phone: Bacteria identifiedon 2024 Bacteria identified Cx Nom (U) Test: Urine Culture Specimen Source: Clean Catch/Voided Specimen Type: Urine Specimen Date: 07/19/202450 Result Date: 07/20/20242109 Result Status: Final result Abnormal: No Resulting Lab: [facility] [id number] [place] [address] CULTURE Clinically insignificant growth based on current clinical standards. Normal [facility] Comment on above: Performed By: #### 6 30-4 #### MELCHOR Page ([id number]) [facility] ([facility]) [address] [place] [address] CBC panel Auto (Bld)on 07-19 Erythrocyte distribution width (RBC) [Ratio] 12.5 % 11.5 - 14.5 % [facility] Hematocrit (Bld) [Volume fraction] 46.1 % 41.0 - 52.0 % [facility] Hemoglobin (Bld) [Mass/Vol] 15.6 g/dL 13.5 - 17.5 g/dL [facility] Interpretation and review of laboratory results Normal [facility] MCH (RBC) [Entitic mass] 29.5 pg 26.0 - 34.0 pg [facility] MCHC (RBC) [Mass/Vol] 33.8 g/dL 32.0 - 36.0 g/dL [facility] MCV (RBC) [Entitic vol] 87 fL 80 - 100 fL [facility] Nucleated RBC/100 WBC (Bld) [Ratio] 0 % [facility] Platelets (Bld) [#/Vol] 241 10*3/uL [facility] RBC (Bld) [#/Vol] 5.29 10*6/uL [facility] WBC (Bld) [#/Vol] 5.5 10*3/uL [facility] Erythrocyte distribution width (RBC) [Ratio] 12.5 % Normal 11.5-14.5 [facility] Comment on above: Performed By: #### 5 8410-2 #### CHARISMA AVILES ([id number]) [facility] ([facility] [address] [place] [address] Hematocrit (Bld) [Volume fraction] 46.1 % Normal 41.0-52.0 [facility] Comment on above: Performed By: #### 5 8410-2 #### CHARISMA AVILES ([id number]) [facility] ([facility] [address] [place] [address] Hemoglobin (Bld) [Mass/Vol] 15.6 g/dL Normal 13.5-17.5 [facility] Comment on above: Performed By: #### 5 8410-2 #### CHARISMA AVILES ([id number]) [facility] ([facility] [address] [place] [address] MCH (RBC) [Entitic mass] 29.5 pg Normal 26.0-34.0 [facility] Comment on above: Performed By: #### 5 8410-2 #### CHARISMA AVILES ([id number]) [facility] ([facility] [address] [place] [address] MCHC (RBC) [Mass/Vol] 33.8 g/dL Normal 32.0-36.0 [facility] Comment on above: Performed By: #### 5 8410-2 #### CHARISMA AVILES ([id number]) [facility] ([facility] [address] [place] [address] MCV (RBC) [Entitic vol] 87 fL Normal 80-100 [facility] Comment on above: Performed By: #### 5 8410-2 #### CHARISMA AVILES ([id number]) [facility] ([facility] [address] [place] [address] Nucleated RBC/100 WBC (Bld) [Ratio] 0.0 /100 WBCs Normal 0.0-0.0 [facility] Comment on above: Performed By: #### 5 8410-2 #### CHARISMA AVILES ([id number]) [facility] ([facility] [address] [place] [address] Platelets (Bld) [#/Vol] 241 x10*3/uL Normal 150-450 [facility] Comment on above: Performed By: #### 5 8410-2 #### CHARISMA AVILES ([id number]) [facility] ([facility] [address] [place] [address] RBC (Bld) [#/Vol] 5.29 x10*6/uL Normal 4.50-5.90 [facility] Comment on above: Performed By: #### 5 8410-2 #### CHARISMA AVILES ([id number]) [facility] ([facility] [address] [place] [address] WBC (Bld) [#/Vol] 5.5 x10*3/uL Normal 4.4-11.3 [facility] Comment on above: Performed By: #### 5 8410-2 #### CHARISMA AVILES ([id number]) [facility] ([facility] [address] [place] [id number] Comprehensive metabolic 2000 panelon 07-19-2024 Albumin BCP dye [Mass/Vol] 4.7 g/dL 3.4 - 5.0 g/dL [facility] ALP [Catalytic activity/Vol] 59 U/L 33 - 120 U/L [facility] ALT With P-5'-P [Catalytic activity/Vol] 76 U/L High 10 - 52 U/L [facility] Comment on above: Patients treated wit h Sulfasalazine may generate falsely decreased results for ALT. Anion gap [Moles/Vol] 17 mmol/L 10 - 20 mmol/L [facility] AST With P-5'-P [Catalytic activity/Vol] 64 U/L High 9 - 39 U/L [facility] Bilirubin [Mass/Vol] 1.1 mg/dL 0.0 - 1 .2 mg/dL [facility] Calcium [Mass/Vol] 10.1 mg/dL 8.6 - 10. 3 mg/dL [facility] Chloride [Moles/Vol] 99 mmol/L 98 - 10 7 mmol/L [facility] CO2 [Moles/Vol] 25 mmol/L 21 - 32 mmol/L [facility] Creatinine [Mass/Vol] 0.88 mg/dL 0.50 - 1.30 mg/dL [facility] eGFR - PINF [facility] Comment on above: Calculations of jeanette mated GFR are performed using the 2020 CKD-EPI Study Refit equation without the race variable for the IDMS-Traceable creatinine methods. https://jasn.asnjournals.org/content//ASN.7573942 988 Glucose [Mass/Vol] 209 mg/dL High 74 - 99 mg/dL [facility] Interpretation and review of laboratory results Abnormal [facility] Potassium [Moles/Vol] 4.4 mmol/L 3.5 - 5.3 mmol/L [facility] Protein [Mass/Vol] 7.6 g/dL 6.4 - 8.2 g/dL [facility] Sodium [Moles/Vol] 137 mmol/L 136 - 145 mmol/L [facility] Urea nitrogen [Mass/Vol] 19 mg/dL 6 - 23 mg/dL [facility] Albumin BCP dye [Mass/Vol] 4.7 g/dL Normal 3.4-5.0 [facility] Comment on above: Performed By: #### 2 4323-8 #### CHARISMA AVILES ([id number]) [facility] ([facility] [address] [place] [address] ALP [Catalytic activity/Vol] 59 U/L Normal 33-120 [facility] Comment on above: Performed By: #### 2 4323-8 #### CHARISMA AVILES ([id number]) [facility] ([facility] [address] [place] [address] ALT With P-5'-P [Catalytic activity/Vol] 76 U/L High 10-52 [facility] Comment on above: Result Comment: Latricia ents treated with Sulfasalazine may generate falsely decreased results for ALT. Performed By: #### 2 4323-8 #### CHARISMA AVILES ([id number]) [facility] ([facility] [address] [place] [address] Anion gap [Moles/Vol] 17 mmol/L Normal 10-20 [facility] Comment on above: Performed By: #### 2 4323-8 #### CHARISMA AVILES ([id number]) [facility] ([facility] [address] [facility] [place] [address] AST With P-5'-P [Catalytic activity/Vol] 64 U/L High 9-39 [facility] Comment on above: Performed By: #### 2 4323-8 #### CHARISMA AVILES ([id number]) [facility] ([facility] [address] [facility] [place] [address] Bilirubin [Mass/Vol] 1.1 mg/dL Normal 0.0-1.2 [facility] Comment on above: Performed By: #### 2 4323-8 #### CHARISMA AVILES ([id number]) [facility] ([facility] [address] [facility] [place] [address] Calcium [Mass/Vol] 10.1 mg/dL Normal 8.6-10.3 [facility] Comment on above: Performed By: #### 2 4323-8 #### CHARISMA AVILES ([id number]) [facility] ([facility] [address] [facility] [place] [address] Chloride [Moles/Vol] 99 mmol/L Normal 98-107 [facility] Comment on above: Performed By: #### 2 4323-8 #### CHARISMA AVILES ([id number]) [facility] ([facility] [address] [facility] [place] [address] CO2 [Moles/Vol] 25 mmol/L Normal 21-32 [facility] Comment on above: Performed By: #### 2 4323-8 #### CHARISMA AVILES ([id number]) [facility] ([facility] [address] [facility] [place] [address] Creatinine [Mass/Vol] 0.88 mg/dL Normal 0.50-1.30 [facility] Comment on above: Performed By: #### 2 4323-8 #### CHARISMA AVILES ([id number]) [facility] ([facility] [address] [place] [address] GFR/1.73 sq M.predicted MDRD (S/P/Bld) [Vol rate/Area] mL/min/{1.73_m2} Normal >60 [facility] Comment on above: Result Comment: Calc ulations of estimated GFR are performed using the 2020 CKD-EPI Study Refit equation without the race variable for the IDMS-Traceable creatinine methods. https://jasn.asnjournals.org/content/early/ASN.4289822 988 Performed By: #### 2 4323-8 #### CHARISMA AVILES ([id number]) [facility] ([facility] [address] [place] [address] Glucose [Mass/Vol] 209 mg/dL High 74-99 [facility] Comment on above: Performed By: #### 2 4323-8 #### CHARISMA AVILES ([id number]) [facility] ([facility] [address] [place] [address] Potassium [Moles/Vol] 4.4 mmol/L Normal 3.5-5.3 [facility] Comment on above: Performed By: #### 2 4323-8 #### CHARISMA AVILES ([id number]) [facility] ([facility] [address] [place] [address] Protein [Mass/Vol] 7.6 g/dL Normal 6.4-8.2 [facility] Comment on above: Performed By: #### 2 4323-8 #### CHARISMA AVILES ([id number]) [facility] ([facility] [address] [place] [address] Sodium [Moles/Vol] 137 mmol/L Normal 136-145 [facility] Comment on above: Performed By: #### 2 4323-8 #### CHARISMA AVILES ([id number]) [facility] ([facility] [address] [place] [address] Urea nitrogen [Mass/Vol] 19 mg/dL Normal 6-23 [facility] Comment on above: Performed By: #### 2 4323-8 #### CHARISMA AVILES ([id number]) [facility] ([facility] [address] [place] [address] ECG 12-LEADon 07-19-2024 ECG 12-LEAD Ventricular Rate 72 Atrial Rate 72 P-R Interval 136 QRS Duration 108 Q-T Interval 410 QTC Calculation(Bazett) 448 P Helper 42 R Helper -31 T Helper 64 QRS Count 11 Q Onset 207 P Onset 139 P Offset 186 T Offset 412 QTC Fredericia 435 Diagnosis Normal sinus rhythm Left axis deviation Septal infarct , age undetermined Abnormal ECG When compared with ECG of 15-DEC-2020 13:21, Septal infarct is now Present Confirmed by Geremias Orozco ([id number]) on 07/28/2024 12:32:46 PM Normal [facility] HbA1c (Bld) [Mass fraction]o n 07-19-2024 Average glucose Estimated from glycated hemoglobin (Bld) [Mass/Vol] 197 mg/dL Normal Not Established [facility] Comment on above: Order Comment: Diagn osis of Diabetes-Adults Non-Diabetic: < or = 5.6% Increased risk for developing diabetes: 5.7-6.4% Diagnostic of diabetes: > or = 6.5% Performed By: #### 4 548-4 #### MELCHOR Page ([id number]) [facility] ([facility]) [address] [place] [address] Hemoglobin A1c/Hemoglobin.to napoleon 07-19-2024 HbA1c (Bld) [Mass fraction] 8.5 % High See comment [facility] Comment on above: Order Comment: Diagn osis of Diabetes-Adults Non-Diabetic: < or = 5.6% Increased risk for developing diabetes: 5.7-6.4% Diagnostic of diabetes: > or = 6.5% Performed By: #### 4 548-4 #### MELCHOR Page ([id number]) [facility] ([facility]) [address] [place] [address] Urinalysis complete W Reflex Culture panel (U)on 07-19-2024 Appearance (U) Clear Normal Clear [facility] Comment on above: Order Comment: OVER is reported when the result is greater than the clinically reportable range. Performed By: #### 5 8077-9 #### CHARISMA AVILES ([id number]) [facility] ([facility] [address] [place] [address] Bilirubin (U) [Mass/Vol] Negative Normal NEGATIVE [facility] Comment on above: Order Comment: OVER is reported when the result is greater than the clinically reportable range. Performed By: #### 5 8077-9 #### CHARISMA AVILES ([id number]) [facility] ([facility] [address] [place] [address] Color (U) Light-Yellow Normal Light-Yellow, Yellow, Dark-Yellow [facility] Comment on above: Order Comment: OVER is reported when the result is greater than the clinically reportable range. Performed By: #### 5 8077-9 #### CHARISMA AVILES ([id number]) [facility] ([facility] [address] [place] [address] Glucose Auto test strip (U) [Mass/Vol] OVER (4+) Abnormal Normal [facility] Comment on above: Order Comment: OVER is reported when the result is greater than the clinically reportable range. Performed By: #### 5 8077-9 #### CHARISMA AVILES ([id number]) [facility] ([facility] [address] [place] [address] Ketones (U) [Mass/Vol] Negative Normal NEGATIVE [facility] Comment on above: Order Comment: OVER is reported when the result is greater than the clinically reportable range. Performed By: #### 5 8077-9 #### CHARISMA AVILES ([id number]) [facility] ([facility] [address] [place] [address] Leukocyte esterase Auto test strip Ql (U) 75 Azra/uL Abnormal NEGATIVE [facility] Comment on above: Order Comment: OVER is reported when the result is greater than the clinically reportable range. Performed By: #### 5 8077-9 #### CHARISMA AVILES ([id number]) [facility] ([facility]) [address] [place] [address] Nitrite Auto test strip Ql (U) Negative Normal NEGATIVE [facility] Comment on above: Order Comment: OVER is reported when the result is greater than the clinically reportable range. Performed By: #### 5 8077-9 #### CHARISMA AVILES ([id number]) [facility] ([facility] [address] [place] [address] pH (U) 6.0 [pH] Normal 5.0, 5.5, 6.0, 6.5, 7.0, 7.5, 8.0 [facility] Comment on above: Order Comment: OVER is reported when the result is greater than the clinically reportable range. Performed By: #### 5 8077-9 #### CHARISMA AVILES ([id number]) [facility] ([facility] [address] [place] [address] Protein (U) [Mass/Vol] 30 (1+) Abnormal NEGATIVE, 10 (TRACE), 20 (TRACE) [facility] Comment on above: Order Comment: OVER is reported when the result is greater than the clinically reportable range. Performed By: #### 5 8077-9 #### CHARISMA AVILES ([id number]) [facility] ([facility] [address] [place] [address] RBC (U) [#/Vol] 1.0 (3+) Abnormal NEGATIVE [facility] Comment on above: Order Comment: OVER is reported when the result is greater than the clinically reportable range. Performed By: #### 5 8077-9 #### CHARISMA AVILES ([id number]) [facility] ([facility] [address] [place] [address] Specific gravity (U) [Rel density] 1.023 Normal 1.005-1.035 [facility] Comment on above: Order Comment: OVER is reported when the result is greater than the clinically reportable range. Performed By: #### 5 8077-9 #### CHARISMA AVILES ([id number]) [facility] ([facility] [id number] [place] [address] Urobilinogen (U) [Mass/Vol] Normal Normal Normal [facility] Comment on above: Order Comment: OVER is reported when the result is greater than the clinically reportable range. Performed By: #### 5 8077-9 #### CHARISMA AVILES ([id number]) [facility] ([facility] [address] [place] [address] Urinalysis microscopic panel Auto Ql (U)on 07-19-2024 Epithelial cells.squamous Auto (Urine sed) [#/Area] 1-9 (SPARSE) Normal Reference range not established. [facility] Comment on above: Performed By: #### 5 3315-8 #### CHARISMA AVILES ([id number]) [facility] ([facility]) [address] [place] [address] Mucus Auto (Urine sed) [#/Area] FEW Normal Reference range not established. [facility] Comment on above: Performed By: #### 5 3315-8 #### CHARISMA AVILES ([id number]) [facility] ([facility]) [address] [place] [address] RBC Auto (Urine sed) [#/Area] >20 Abnormal NONE, 1-2, 3-5 [facility] Comment on above: Performed By: #### 5 3315-8 #### CHARISMA AVILES ([id number]) [facility] ([facility]) [address] [place] [address] WBC Auto (Urine sed) [#/Area] 21-50 Abnormal 1-5, NONE [facility] Comment on above: Performed By: #### 5 3315-8 #### CHARISMA AVILES ([id number]) [facility] ([facility] [address] [place] [address] Ambulatory Visit Summaryon 0 05-24-2024 Ambulatory Visit [...] POLY ISIDRO, Alex Cohen, SARIAH When: Where: [address] [place] [address] [place], [place] [address]- Medications What How Much When Instructions Unchanged [...] including vitamins, herbs, eye drops, creams, and uqfk-ndz-rvuysnr medicines. ??? Any problems you or family [...] of (more content not included)... Normal [facility] Urology Office/Clinic Noteon 05-24-2024 Urology Office/Clinic [...] to [facility] and that regard. Referral to [facility]/ urology where they have interventional radiologist [...] stones we (more content not included)... Normal [facility] Comment on above: Result Comment: Elec tronically Signed By: Arleen Barahona P\.br\Date and Time Signed: 05/24/24 10:34 EST\.br\Electronically Co-Signed By: Alex PANG MD P\.br\Date and Time Co-Signed: 07/01/24 15:12 EST CHEMISTRYOrdered By: Patience Villarreal on 03-30-2024 HbA1c (Bld) [Mass fraction] 8.1 % High <=5.9% [facility] ChemAutoSS CHEMISTRYOrdered By: SYSTEM SYSTEM on 03-30-2024 [...] used for this result was chemiluminescence using [email or web address] Access Hybritech PSA reagent. [id number] 03-30-2024 HbA1c (Bld) [Mass fraction] 8.1 % High <=5.9 [facility] Comment on above: Performed By: #### 7 [id number] #### [facility] [address] [place] [address] PSA Totalon 03-30-2024 Prostate specific Ag [Mass/Vol] 1.2 ng/mL Normal 0.1-3.5 [facility] Comment on above: Result Comment: The concentration of PSA determined by different manufacturers can vary due to differences in assay methods and reagent specificity. Values obtained from different assay methods cannot be used interchangeably. The methodology used for this result was chemiluminescence using [employer] Access Hybritech PSA reagent. Performed By: #### 1 [id number] #### [facility] [address] [place] [address] CULTURE URINEon 09-15-2022 CULTURE URINE Isolate 1 [...] Trimethoprim/Sulfamet hoxazole <=20 S F Normal [facility] Comment on above: Performed By: #### L IPA, CMP, CK, HSTROPN #### [facility] [address] [place] [address] [address] Frank Nugent CBC AUTO DIFFon 09-13-2022 BASO # 0.0 103/ul Normal 0.0-0.1 [facility] Comment on above: Performed By: #### C BC #### [facility] [address] [place], [place] [address] Dr. Frank Nugent Basophils/100 WBC (Bld) 0.2 % Normal 0.2-2.0 [facility] Comment on above: Performed By: #### C BC #### [facility] [address] [place], [place] [address] Dr. Frank Nugent EO # 0.0 103/ul Normal 0.0-0.7 [facility] Comment on above: Performed By: #### C BC #### [facility] [address] [place] [address] Dr. Frank Nugent Eosinophils/100 WBC (Bld) 0.1 % Critically low 0.9-7.0 [facility] Comment on above: Performed By: #### C BC #### [facility] [address] [place] [address] Dr. Frank Nugent Erythrocyte distribution width (RBC) [Ratio] 12.7 % Normal 11.0-15.0 [facility] Comment on above: Performed By: #### C BC #### [facility] [address] [place] [address] Dr. Frank Nugent Hematocrit (Bld) [Volume fraction] 41.3 % Critically low 42.0-54.0 [facility] Comment on above: Performed By: #### C BC #### [facility] [address] [place] [address] Dr. Frank Nugent Hemoglobin (Bld) [Mass/Vol] 14.0 g/dL Normal 14.0-18.0 [facility] Comment on above: Performed By: #### C BC #### [facility] [address] [place] [address] Dr. Frank Nugent IG # 0.04 10e3/ul Critically high 0.00-0.03 [facility] Comment on above: Performed By: #### C BC #### [facility] [address] [place] [address] Dr. Frank Nugent IG % 0.3 % Normal 0.0-0.5 [facility] Comment on above: Performed By: #### C BC #### [facility] [address] [place] [address] Dr. Frank Nugent LYMPH # 1.0 103/ul Critically low 1.2-3.8 [facility] Comment on above: Performed By: #### C BC #### [facility] [address] [place] [address] Dr. Frank Nugent Lymphocytes/100 WBC (Bld) 6.9 % Critically low 20.5-60.0 [facility] Comment on above: Performed By: #### C BC #### [facility] [address] [place] [address] Dr. Frank Nugent MANUAL DIFF REQ NO Normal [facility] Comment on above: Performed By: #### C BC #### [facility] [address] [place] [address] Dr. Frank Nugent MCH (RBC) [Entitic mass] 29.5 pg Normal 25.9-34.0 [facility] Comment on above: Performed By: #### C BC #### [facility] [address] [place] [address] Dr. Frank Nugent MCHC (RBC) [Mass/Vol] 33.9 g/dL Normal 29.9-35.2 [facility] Comment on above: Performed By: #### C BC #### [facility] [address] [place] [address] Dr. Frank Nugent MCV (RBC) [Entitic vol] 87.1 fL Normal 80.0-94.0 [facility] Comment on above: Performed By: #### C BC #### [facility] [address] [place] [address] Dr. Frank Nugent MONO # 1.3 103/ul Critically high 0.3-0.8 [facility] Comment on above: Performed By: #### C BC #### [facility] [address] [place] [address] Dr. Frank Nugent Monocytes/100 WBC (Bld) 9.0 % Normal 1.7-12.0 [facility] Comment on above: Performed By: #### C BC #### [facility] [address] [place] [address] Dr. Frank Nugent NEUT # 12.2 103/ul Critically high 1.4-6.5 [facility] Comment on above: Performed By: #### C BC #### [facility] [address] [place] [address] Dr. Frank Nugent Neutrophils/100 WBC (Bld) 83.5 % Critically high 43.0-75.0 [facility] Comment on above: Performed By: #### C BC #### [facility] [address] [address] [address] Frank Nugent Platelet mean volume (Bld) [Entitic vol] 11.5 fL Normal 9.5-13.5 [facility] Comment on above: Performed By: #### C BC #### [facility] [address] [address] [address] Frank Nugent PLT 216 103/ul Normal 150-450 [facility] Comment on above: Performed By: #### C BC #### [facility] [address] [place] [address] Dr. Frank Nugent RBC 4.74 106/ul Normal 4.70-6.10 [facility] Comment on above: Performed By: #### C BC #### [facility] [address] [place] [address] Dr. Frank Nugent WBC 14.6 103/ul Critically high 4.0-11.0 [facility] Comment on above: Performed By: #### C BC #### [facility] [address] [place] [address] Dr. Frank Nugent CPKon 09-13-2022 CK [Catalytic activity/Vol] 260 U/L Normal 39-308 [facility] Comment on above: Performed By: #### L IPA, CMP, CK, HSTROPN #### [facility] [address] [place] [address] Dr. Frank Nugent CULTURE BLOODon 09-13-2022 Microscopic examination of blood, culture Culture Observations: NO GROWTH AT 5 DAYS. Normal [facility] Comment on above: Performed By: #### L IPA, CMP, CK, HSTROPN #### [facility] [address] [place] [address] Dr. Frank Nugent Microscopic examination of blood, culture Culture Observations: NO GROWTH AT 5 DAYS. Normal [facility] Comment on above: Performed By: #### L IPA, CMP, CK, HSTROPN #### [facility] [address] [place] [address] Dr. Frank Nugent Covid-19 PCR (CVDTB)on SARS-CoV-2 (COVID-19) RNA JABIER+probe Ql (Unsp spec) Not detected Normal NOT DETECTED [facility] Comment on above: Result Comment: This test is not yet approved or cleared by the [place] FDA. When there are no FDA-approved or cleared tests available, and other criteria are met, FDA can make tests available under an emergency access mechanism called an Emergency Use Authorization (EUA). The EUA for this test is supported by the [employer] Manager of Health and Human Service's (HHS's) declaration [...] #### L IPA, CMP, CK, HSTROPN #### [facility] [address] [place] [address] Dr. Frank Nugent ER URINE PROFILEon 3 Bilirubin Ql (U) Negative Normal NEGATIVE [facility] Comment on above: Performed By: #### L IPA, CMP, CK, HSTROPN #### [facility] [address] [place] [address] Dr. Frank Nugent Clarity (U) CLEAR Normal CLEAR [facility] Comment on above: Performed By: #### L IPA, CMP, CK, HSTROPN #### [facility] [address] [place] [address] Dr. Frank Nugent Color (U) YELLOW Normal YELLOW [facility] Comment on above: Performed By: #### L IPA, CMP, CK, HSTROPN #### [facility] [address] [place] [address] Dr. Frank Nugent ERUPALOMA A micrscopic examination will be performed if indicated. Normal [facility] Comment on above: Performed By: #### L IPA, CMP, CK, HSTROPN #### [facility] [address] [address] [address] Frank Nugent Glucose Ql (U) 250 mg/dl Abnormal NEGATIVE [facility] Comment on above: Performed By: #### L IPA, CMP, CK, HSTROPN #### [facility] [address] [address] [address] Frank Nugent Hemoglobin Ql (U) SMALL Abnormal NEGATIVE [facility] Comment on above: Performed By: #### L IPA, CMP, CK, HSTROPN #### [facility] [address] [address] [address] Frank Nugent Ketones Ql (U) Negative Normal NEGATIVE [facility] Comment on above: Performed By: #### L IPA, CMP, CK, HSTROPN #### [facility] [address] [address] [address] Frank Nugent LEUKOCYTES TRACE Abnormal NEGATIVE [facility] Comment on above: Performed By: #### L IPA, CMP, CK, HSTROPN #### [facility] [address] [address] [address] Frank Nugent Nitrite Ql (U) Negative Normal NEGATIVE [facility] Comment on above: Performed By: #### L IPA, CMP, CK, HSTROPN #### [facility] [address] [address] [address] Frank Nugent pH (U) 5.5 [pH] Normal 5-9 [facility] Comment on above: Performed By: #### L IPA, CMP, CK, HSTROPN #### [facility] [address] [address] [address] Frank Nugent SPEC GRAVITY 1.020 Normal 1.005-<=1.025 [facility] Comment on above: Performed By: #### L IPA, CMP, CK, HSTROPN #### [facility] [address] [address] [address] Frank Nugent UA PROTEIN TRACE Normal NEGATIVE/ TRACE [facility] Comment on above: Performed By: #### L IPA, CMP, CK, HSTROPN #### [facility] [address] [place] [address] Dr. Frank Nugent UR MICRO IND INDICATED Normal [facility] Comment on above: Performed By: #### L IPA, CMP, CK, HSTROPN #### [facility] [address] [place] [address] Dr. Frank Nugent Urobilinogen Qn (U) 0.2 {Moni'U}/dL Normal 0.2 - 1. 0 [facility] Comment on above: Performed By: #### L IPA, CMP, CK, HSTROPN #### [facility] [address] [place] [address] Dr. Frank Nugent LACTATE/LACTIC ACIDon 2022 Lactate [Moles/Vol] 2.1 mmol/L Critically high 0.4-2.0 [facility] Comment on above: Performed By: #### L ACT #### [facility] [address] [place] [address] Dr. Frank Nugent LIPASEon 09-13-2022 Lipase [Catalytic activity/Vol] 116.0 U/L Normal 73.0-393.0 [facility] Comment on above: Performed By: #### L IPA, CMP, CK, HSTROPN #### [facility] [address] [place] [address] Dr. Frank Nugent PROF 14(COMP METB)on 023 Albumin [Mass/Vol] 4.0 g/dL Normal 3.4-5.0 [facility] Comment on above: Performed By: #### L IPA, CMP, CK, HSTROPN #### [facility] [address] [place] [address] Dr. Frank Nugent Albumin/Globulin [Mass ratio] 1.0 {ratio} Normal [facility] Comment on above: Performed By: #### L IPA, CMP, CK, HSTROPN #### [facility] [address] [place] [address] Dr. Frank Nugent ALP [Catalytic activity/Vol] 70 U/L Normal 46-116 [facility] Comment on above: Performed By: #### L IPA, CMP, CK, HSTROPN #### [facility] [address] [place] [address] Dr. Frank Nugent ALT [Catalytic activity/Vol] 55 U/L Normal 16-63 [facility] Comment on above: Performed By: #### L IPA, CMP, CK, HSTROPN #### [facility] [address] [address] [address] Frank Nugent Anion gap [Moles/Vol] 14.0 mmol/L Normal [facility] Comment on above: Performed By: #### L IPA, CMP, CK, HSTROPN #### [facility] [address] [place] [address] Dr. Frank Nugent AST [Catalytic activity/Vol] 28 U/L Normal 15-37 [facility] Comment on above: Performed By: #### L IPA, CMP, CK, HSTROPN #### [facility] [address] [place] [address] Dr. Frank Nugent Bilirubin [Mass/Vol] 2.1 mg/dL Critically high 0.2-1.0 [facility] Comment on above: Performed By: #### L IPA, CMP, CK, HSTROPN #### [facility] [address] [place] [address] Dr. Frank Nugent Calcium [Mass/Vol] 9.3 mg/dL Normal 8.5-10.1 [facility] Comment on above: Performed By: #### L IPA, CMP, CK, HSTROPN #### [facility] [address] [place] [address] Dr. Frank Nugent Chloride [Moles/Vol] 100 mmol/L Normal 98-107 [facility] Comment on above: Performed By: #### L IPA, CMP, CK, HSTROPN #### [facility] [address] [place] [address] Dr. Frank Nugent CO2 [Moles/Vol] 24.7 mmol/L Normal 21.0-32.0 [facility] Comment on above: Performed By: #### L IPA, CMP, CK, HSTROPN #### [facility] [address] [address] [address] Frank Nugent Creatinine [Mass/Vol] 1.31 mg/dL Critically high 0.70-1.30 [facility] Comment on above: Performed By: #### L IPA, CMP, CK, HSTROPN #### [facility] [address] [place] [address] Dr. Frank Nugent EGFR-AF SIERRA LEONEAN >60 Normal >=60 [facility] Comment on above: Performed By: #### L IPA, CMP, CK, HSTROPN #### [facility] [address] [place] [address] Dr. Frank Nugent EGFR-NON AF SIERRA LEONEAN 58 mL/min/1.73m2 Critically low >=60 [facility] Comment on above: Performed By: #### L IPA, CMP, CK, HSTROPN #### [facility] [address] [place] [address] Dr. Frank Nugent Globulin (S) [Mass/Vol] 4.0 g/dL Normal [facility] Comment on above: Performed By: #### L IPA, CMP, CK, HSTROPN #### [facility] [address] [place] [address] Dr. Frank Nugent Glucose [Mass/Vol] 244 mg/dL Critically high 74-106 [facility] Comment on above: Performed By: #### L IPA, CMP, CK, HSTROPN #### [facility] [address] [place] [address] Dr. Frank Nugent Potassium [Moles/Vol] 3.7 mmol/L Normal 3.5-5.1 [facility] Comment on above: Performed By: #### L IPA, CMP, CK, HSTROPN #### [facility] [address] [place] [address] Dr. Frank Nugent Protein [Mass/Vol] 8.0 g/dL Normal 6.4-8.2 [facility] Comment on above: Performed By: #### L IPA, CMP, CK, HSTROPN #### [facility] [address] [address] [address] Frank Nugent Sodium [Moles/Vol] 135 mmol/L Critically low 136-145 [facility] Comment on above: Performed By: #### L IPA, CMP, CK, HSTROPN #### [facility] [address] [address] [address] Frank Nugent Urea nitrogen [Mass/Vol] 19.0 mg/dL Critically high 7.0-18.0 [facility] Comment on above: Performed By: #### L IPA, CMP, CK, HSTROPN #### [facility] [address] [place] [address] Dr. Frank Nugent Urea nitrogen/Creatinine [Mass ratio] 14.5 mg/mg Normal [facility] Comment on above: Performed By: #### L IPA, CMP, CK, HSTROPN #### [facility] [address] [place] [address] Dr. Frank Nugent PROTIMEon 09-13-2022 INR Coag (PPP) [Relative time] 0.97 {INR} Normal [facility] Comment on above: Performed By: #### L IPA, CMP, CK, HSTROPN #### [facility] [address] [place] [address] Dr. Frank Nugent INR GUIDELINES SEE BELOW Normal [facility] Comment on above: Result Comment: GHASSAN RED INR: 2.0 - 3.0 CONDITIONS NOT LISTED BELOW 2.5 - 3.5 FOR PROSTHETIC HEART VALVE REPLACEMENT 2.5 - 3.5 RECURRENT THROMBOSIS Performed By: #### L IPA, CMP, CK, HSTROPN #### [facility] [address] [place] [address] Dr. Frank Nugent PT Coag (PPP) [Time] 10.3 s Normal 9.0-11.6 [facility] Comment on above: Performed By: #### L IPA, CMP, CK, HSTROPN #### [facility] [address] [place] [address] Dr. Frank Nugent SYMPTOMATIC COVID-19 ANTIGEN on 09-13-2022 EUA Statement SEE BELOW Normal [facility] Comment on above: Result Comment: This [...] #### L IPA, CMP, CK, HSTROPN #### [facility] [address] [place] [address] Dr. Frank Nugent SARS-CoV-2 (COVID-19) RNA JABIER+probe Ql (Unsp spec) Negative Normal NEGATIVE [facility] Comment on above: Performed By: #### L IPA, CMP, CK, HSTROPN #### [facility] [address] [place] [address] Dr. Frank Nugent TROPONIN, HIGH SENSITIVITYon 09-13-2022 HSTROP 5.4 pg/mL Normal 4.0-76.1 [facility] Comment on above: Result Comment: CUT- OFF POINTS HAVE BEEN ESTABLISHED BASED ON THE FOURTH UNIVERSAL DEFINITIONS OF MYOCARDIAL INFARCTION. THE UPPER REFERENCE LIMIT (URL) OF TROPONIN, DEFINED THE 99TH PERCENTILE OF cTnI DISTRIBUTION IN A REFERENCE POPULATION, HAS BEEN CONFIRMED THE DECISION THRESHOLD FOR MT DIAGNOSIS. Performed By: #### L IPA, CMP, CK, HSTROPN #### [facility] [address] [place] [address] Dr. Frank Nugent URINE MICROSCOPIC ONLYon BACTERIA SMALL Abnormal NONE SEEN [facility] Comment on above: Performed By: #### L IPA, CMP, CK, HSTROPN #### [facility] [address] [address] [address] Frank Nugent Bacteria identified Cx Nom (U) INDICATED Normal [facility] Comment on above: Performed By: #### L IPA, CMP, CK, HSTROPN #### [facility] [address] [address] [address] Frank Nugent CAST NONE SEEN Normal NONE SEEN [facility] Comment on above: Performed By: #### L IPA, CMP, CK, HSTROPN #### [facility] [address] [address] [address] Frank Nugent Crystals LM Nom (Urine sed) NONE SEEN Normal NONE SEEN [facility] Comment on above: Performed By: #### L IPA, CMP, CK, HSTROPN #### [facility] [address] [place] [address] Dr. Frank Nugent Epithelial cells LM Ql (Urine sed) FEW Abnormal NONE SEEN /RARE [facility] Comment on above: Performed By: #### L IPA, CMP, CK, HSTROPN #### [facility] [address] [place] [address] Dr. Frank Nugent MUCOUS NONE SEEN Normal NONE SEEN [facility] Comment on above: Performed By: #### L IPA, CMP, CK, HSTROPN #### [facility] [address] [place] [address] Dr. Frank Nugent RBC 2-5 Abnormal 0-2 [facility] Comment on above: Performed By: #### L IPA, CMP, CK, HSTROPN #### [facility] [address] [place] [address] Dr. Frank Nugent WBC 5-10 Abnormal NONE SEEN [facility] Comment on above: Performed By: #### L IPA, CMP, CK, HSTROPN #### [facility] [address] [place] [address] Dr. Frank Nugent XR CHEST 1 Von [...] YURY FERNANDEZ Date: 2022-09-13 13:36 Normal [facility] INSULINon 08-12-2022 Insulin 73.3 uIU/mL Critically high 2.6-24.9 [facility] Comment on above: Performed By: #### L IPA, CMP, CK, HSTROPN #### [facility] [address] [place] [address] Dr. Frank Nugent BNPon 08-10-2022 Natriuretic peptide B (Bld) [Mass/Vol] 48.0 pg/mL Normal <=900.0 [facility] Comment on above: Performed By: #### L IPA, CMP, CK, HSTROPN #### [facility] [address] [place] [address] Dr. Frank Nugent CBC AUTO DIFFon 08-10-2022 BASO # 0.0 103/ul Normal 0.0-0.1 [facility] Comment on above: Performed By: #### C BC #### [facility] [address] [place] [address] Dr. Frank Nugent Basophils/100 WBC (Bld) 0.3 % Normal 0.2-2.0 [facility] Comment on above: Performed By: #### C BC #### [facility] [address] [place] [address] Dr. Frank Nugent EO # 0.2 103/ul Normal 0.0-0.7 [facility] Comment on above: Performed By: #### C BC #### [facility] [address] [place] [address] Dr. Frank Nugent Eosinophils/100 WBC (Bld) 4.9 % Normal 0.9-7.0 [facility] Comment on above: Performed By: #### C BC #### [facility] [address] [place] [address] Dr. Frank Nugent Erythrocyte distribution width (RBC) [Ratio] 12.8 % Normal 11.0-15.0 [facility] Comment on above: Performed By: #### C BC #### [facility] [address] [place] [address] Dr. Frank Nugent Hematocrit (Bld) [Volume fraction] 43.8 % Normal 42.0-54.0 [facility] Comment on above: Performed By: #### C BC #### [facility] [address] [place] [address] Dr. Frank Nugent Hemoglobin (Bld) [Mass/Vol] 15.4 g/dL Normal 14.0-18.0 [facility] Comment on above: Performed By: #### C BC #### [facility] [address] [place] [address] Dr. Frank Nugent IG # 0.00 10e3/ul Normal 0.00-0.03 [facility] Comment on above: Performed By: #### C BC #### [facility] [address] [place] [address] Dr. Frank Nugent IG % 0.0 % Normal 0.0-0.5 [facility] Comment on above: Performed By: #### C BC #### [facility] [address] [place] [address] Dr. Frank Nugent LYMPH # 0.8 103/ul Critically low 1.2-3.8 [facility] Comment on above: Performed By: #### C BC #### [facility] [address] [place] [address] Dr. Frank Nugent Lymphocytes/100 WBC (Bld) 23.9 % Normal 20.5-60.0 [facility] Comment on above: Performed By: #### C BC #### [facility] [address] [place] [address] Dr. Frank Nugent MANUAL DIFF REQ NO Normal [facility] Comment on above: Performed By: #### C BC #### [facility] [address] [address] [address] Frank Nugent MCH (RBC) [Entitic mass] 30.0 pg Normal 25.9-34.0 [facility] Comment on above: Performed By: #### C BC #### [facility] [address] [address] [address] Frank Nugent MCHC (RBC) [Mass/Vol] 35.2 g/dL Normal 29.9-35.2 [facility] Comment on above: Performed By: #### C BC #### [facility] [address] [place] [address] Dr. Frank Nugent MCV (RBC) [Entitic vol] 85.2 fL Normal 80.0-94.0 [facility] Comment on above: Performed By: #### C BC #### [facility] [address] [place] [address] Dr. Frank Nugent MONO # 0.4 103/ul Normal 0.3-0.8 [facility] Comment on above: Performed By: #### C BC #### [facility] [address] [place] [address] Dr. Frank Nugent Monocytes/100 WBC (Bld) 12.8 % Critically high 1.7-12.0 [facility] Comment on above: Performed By: #### C BC #### [facility] [address] [place] [address] Dr. Frank Nugent NEUT # 1.9 103/ul Normal 1.4-6.5 [facility] Comment on above: Performed By: #### C BC #### [facility] [address] [place] [address] Dr. Frank Nugent Neutrophils/100 WBC (Bld) 58.1 % Normal 43.0-75.0 [facility] Comment on above: Performed By: #### C BC #### [facility] [address] [place] [address] Dr. Frank Nugent Platelet mean volume (Bld) [Entitic vol] 11.3 fL Normal 9.5-13.5 [facility] Comment on above: Performed By: #### C BC #### [facility] [address] [address] [address] Frank Nugent PLT 224 103/ul Normal 150-450 [facility] Comment on above: Performed By: #### C BC #### [facility] [address] [place] [address] Dr. Frank Nugent RBC 5.14 106/ul Normal 4.70-6.10 [facility] Comment on above: Performed By: #### C BC #### [facility] [address] [place] [address] Dr. Frank Nugent WBC 3.3 103/ul Critically low 4.0-11.0 [facility] Comment on above: Performed By: #### C BC #### [facility] [address] [place] [address] Dr. Frank Nugent FREE THYROXINE INDEX T7on FTI 2.63 Normal 1.30-4.50 [facility] Comment on above: Performed By: #### L IPA, CMP, CK, HSTROPN #### [facility] [address] [place] [address] Dr. Frank Nugent T3U 35.0 % Normal 33.0-40.0 [facility] Comment on above: Performed By: #### L IPA, CMP, CK, HSTROPN #### [facility] [address] [place] [address] Dr. Frank Nugent T4 [Mass/Vol] 7.50 ug/dL Normal 4.50-12.10 [facility] Comment on above: Performed By: #### L IPA, CMP, CK, HSTROPN #### [facility] [address] [place] [address] Dr. Frank Nugent GLYCOHEMOGLOBIN A1Con 2022 ADA RECOMMENDATION SEE BELOW Normal [facility] Comment on above: Result Comment: ADA RECOMMENDED LIMIT 4.0 - 6.0 ADA THERAPEUTIC TARGET < 7.0 ACTION SUGGESTED > 7.0 Performed By: #### A 1C #### [facility] [address] [address] [address] Frank Nugent Glucose [Mass/Vol] 169 mg/dL Normal [facility] Comment on above: Performed By: #### A 1C #### [facility] [address] [address] [address] Frank Nugent HbA1c (Bld) [Mass fraction] 7.5 % Critically high 4.5-6.2 [facility] Comment on above: Performed By: #### A 1C #### [facility] [address] [address] [address] Frank Nugent LIPID PROFILEon 08-10-2022 CHOL-HDL RATIO NORM SEE BELOW Normal [facility] Comment on above: Result Comment: 3.3 - 4.4 LOW RISK 4.4 - 7.1 AVERAGE RISK 7.1 - 11.0 MODERATE RISK >11.0 HIGH RISK Performed By: #### L IPA, CMP, CK, HSTROPN #### [facility] [address] [address] [address] Frank Nugent Cholesterol [Mass/Vol] 183 mg/dL Normal <=200 [facility] Comment on above: Performed By: #### L IPA, CMP, CK, HSTROPN #### [facility] [address] [address] [address] Frank Nugent Cholesterol in HDL [Mass/Vol] 29 mg/dL Critically low 40-60 [facility] Comment on above: Performed By: #### L IPA, CMP, CK, HSTROPN #### [facility] [address] [address] [address] Frank Nugent Cholesterol in LDL [Mass/Vol] 83.2 mg/dL Normal [facility] Comment on above: Performed By: #### L IPA, CMP, CK, HSTROPN #### [facility] [address] [address] [address] Frank Nugent Cholesterol.total/Ch olesterol in HDL [Mass ratio] 6.3 {ratio} Normal [facility] Comment on above: Performed By: #### L IPA, CMP, CK, HSTROPN #### [facility] [address] [address] [address] Frank Nugent HDL NORMAL > or = 60 mg/dl - LO W CARDIOVASCULAR RISK <40 mg/dl - HIGH CARDIOVASCULAR RISK Normal [facility] Comment on above: Performed By: #### L IPA, CMP, CK, HSTROPN #### [facility] [address] [address] [address] Frank Nugent LDL CALC NORMAL SEE BELOW Normal [facility] Comment on above: Result Comment: <100 mg/dl OPTIMAL 100 - 129 mg/dl NEAR OR ABOVE OPTIMAL 130 - 159 mg/dl BORDERLINE HIGH 160 - 189 mg/dl HIGH >190 mg/dl VERY HIGH Performed By: #### L IPA, CMP, CK, HSTROPN #### [facility] [address] [address] [address] Frank Nugent Triglyceride [Mass/Vol] 354 mg/dL Critically high <=150 [facility] Comment on above: Performed By: #### L IPA, CMP, CK, HSTROPN #### [facility] [address] [address] [address] Frank Nugent VLDL CALC 70.8 mg/dL Normal [facility] Comment on above: Performed By: #### L IPA, CMP, CK, HSTROPN #### [facility] [address] [address] [address] Frank Nugent PROF 14(COMP METB)on 023 Albumin [Mass/Vol] 4.4 g/dL Normal 3.4-5.0 [facility] Comment on above: Performed By: #### L IPA, CMP, CK, HSTROPN #### [facility] [address] [address] [address] Frank Nugent Albumin/Globulin [Mass ratio] 1.2 {ratio} Normal [facility] Comment on above: Performed By: #### L IPA, CMP, CK, HSTROPN #### [facility] [address] [address] [address] Frank Nugent ALP [Catalytic activity/Vol] 81 U/L Normal 46-116 [facility] Comment on above: Performed By: #### L IPA, CMP, CK, HSTROPN #### [facility] [address] [address] [address] Frank Nugent ALT [Catalytic activity/Vol] 102 U/L Critically high 16-63 [facility] Comment on above: Performed By: #### L IPA, CMP, CK, HSTROPN #### [facility] [address] [address] [address] Frank Nugent Anion gap [Moles/Vol] 14.6 mmol/L Normal [facility] Comment on above: Performed By: #### L IPA, CMP, CK, HSTROPN #### [facility] [address] [place] [address] Dr. Frank Nugent AST [Catalytic activity/Vol] 55 U/L Critically high 15-37 [facility] Comment on above: Performed By: #### L IPA, CMP, CK, HSTROPN #### [facility] [address] [address] [address] Frank Nugent Bilirubin [Mass/Vol] 1.0 mg/dL Normal 0.2-1.0 [facility] Comment on above: Performed By: #### L IPA, CMP, CK, HSTROPN #### [facility] [address] [place] [address] Dr. Frank Nugent Calcium [Mass/Vol] 9.5 mg/dL Normal 8.5-10.1 [facility] Comment on above: Performed By: #### L IPA, CMP, CK, HSTROPN #### [facility] [address] [place] [address] Dr. Frank Nugent Chloride [Moles/Vol] 103 mmol/L Normal 98-107 [facility] Comment on above: Performed By: #### L IPA, CMP, CK, HSTROPN #### [facility] [address] [place] [address] Dr. Frank Nugent CO2 [Moles/Vol] 23.4 mmol/L Normal 21.0-32.0 [facility] Comment on above: Performed By: #### L IPA, CMP, CK, HSTROPN #### [facility] [address] [address] [address] Frank Nugent Creatinine [Mass/Vol] 0.88 mg/dL Normal 0.70-1.30 [facility] Comment on above: Performed By: #### L IPA, CMP, CK, HSTROPN #### [facility] [address] [address] [address] Frank Nugent EGFR-AF SIERRA LEONEAN >60 Normal >=60 [facility] Comment on above: Performed By: #### L IPA, CMP, CK, HSTROPN #### [facility] [address] [place] [address] Dr. Frank Nugent EGFR-NON AF SIERRA LEONEAN >60 Normal >=60 [facility] Comment on above: Performed By: #### L IPA, CMP, CK, HSTROPN #### [facility] [address] [place] [address] Dr. Frank Nugent Globulin (S) [Mass/Vol] 3.6 g/dL Normal [facility] Comment on above: Performed By: #### L IPA, CMP, CK, HSTROPN #### [facility] [address] [place] [address] Dr. Frank Nugent Glucose [Mass/Vol] 164 mg/dL Critically high 74-106 [facility] Comment on above: Performed By: #### L IPA, CMP, CK, HSTROPN #### [facility] [address] [address] [address] Frank Nugent Potassium [Moles/Vol] 4.0 mmol/L Normal 3.5-5.1 [facility] Comment on above: Performed By: #### L IPA, CMP, CK, HSTROPN #### [facility] [address] [place] [address] Dr. Frank Nugent Protein [Mass/Vol] 8.0 g/dL Normal 6.4-8.2 [facility] Comment on above: Performed By: #### L IPA, CMP, CK, HSTROPN #### [facility] [address] [place], [place] [id number] Dr. Frank Nugent Sodium [Moles/Vol] 137 mmol/L Normal 136-145 [facility] Comment on above: Performed By: #### L IPA, CMP, CK, HSTROPN #### [facility] [address] [place] [address] Dr. Frank Nugent Urea nitrogen [Mass/Vol] 16.0 mg/dL Normal 7.0-18.0 [facility] Comment on above: Performed By: #### L IPA, CMP, CK, HSTROPN #### [facility] [address] [place] [address] Dr. Frank Nugent Urea nitrogen/Creatinine [Mass ratio] 18.2 mg/mg Normal [facility] Comment on above: Performed By: #### L IPA, CMP, CK, HSTROPN #### [facility] [address] [place] [address] Dr. Frank Nugent TSHon 08-10-2022 TSH 0.879 uIU/mL Normal 0.358-3.740 [facility] Comment on above: Performed By: #### L IPA, CMP, CK, HSTROPN #### [facility] [address] [place] [address] Dr. Frank Nugent URIC ACID SERUMon 08-10-2022 Urate [Mass/Vol] 5.1 mg/dL Normal 3.5-7.2 [facility] Comment on above: Performed By: #### L IPA, CMP, CK, HSTROPN #### [facility] [address] [place] [address] Dr. Frank Nugent VITAMIN D 25 OHon 08-10-2022 VIT D 25-OH 12.1 ng/mL Normal [facility] Comment on above: Performed By: #### P SASC, VITAD #### [facility] [address] [place] [address] Dr. Frank Nugent VIT D RANGES SEE BELOW Normal [facility] Comment on above: Result Comment: <20 ng/mL Vit D deficient 20 - <30 ng/mL Vit D insufficient 30 - 100 ng/mL Vit D sufficient >100 ng/mL Potential Toxicity Performed By: #### P SASC, VITAD #### [facility] [address] [address] [address] Frank Nugent Urinalysison 04-25-2021 Appearance (U) Clear Normal Clear [facility] Comment on above: Order Comment: Name Collection Type:: Clean-Voided Midstream Performed By: #### U A #### [facility] [address] [place] [address] [place] Bilirubin,Urine Negative Normal Negative [facility] Comment on above: Order Comment: Name Collection Type:: Clean-Voided Midstream Performed By: #### U A #### [facility] [address] [place] [address] [place] Color (U) Yellow Normal Yellow [facility] Comment on above: Order Comment: Name Collection Type:: Clean-Voided Midstream Performed By: #### U A #### [facility] [address] [place] [address] [place] Glucose Ql (U) Normal Normal Normal [facility] Comment on above: Order Comment: Name Collection Type:: Clean-Voided Midstream Performed By: #### U A #### [facility] [address] [place] [address] [place] Ketones Ql (U) Negative Normal Negative [facility] Comment on above: Order Comment: Name Collection Type:: Clean-Voided Midstream Performed By: #### U A #### [facility] [address] [place] [address] [place] Leukocyte esterase Test strip Ql (U) Negative Normal Negative [facility] Comment on above: Order Comment: Name Collection Type:: Clean-Voided Midstream Performed By: #### U A #### [facility] [address] [place] [address] [place] Nitrite,Urine Negative Normal Negative [facility] Comment on above: Order Comment: Name Collection Type:: Clean-Voided Midstream Performed By: #### U A #### [facility] [address] [place], [place] [id number] [place] Occult Blood,Urine Negative Normal Negative [facility] Comment on above: Order Comment: Name Collection Type:: Clean-Voided Midstream Result Comment: PERF ORMED BY: [place] [address] PATHOLOGIST SCORING MACHINE OPERATOR HARESH LUI M.D. Performed By: #### U A #### [facility] [address] [place] [address] pH (U) 6.0 [pH] Normal 5.0-9.0 [facility] Comment on above: Order Comment: Name Collection Type:: Clean-Voided Midstream Performed By: #### U A #### [address] Protein,Urine Negative Normal Negative [facility] Comment on above: Order Comment: Name Collection Type:: Clean-Voided Midstream Performed By: #### U A #### [address] Specificy [place],Urine 1.018 Normal 1.001-1.030 [facility] Comment on above: Order Comment: Name Collection Type:: Clean-Voided Midstream Performed By: #### U A #### [address] Urobilinogen,Urine Normal Normal Normal [facility] Comment on above: Order Comment: Name Collection Type:: Clean-Voided Midstream Performed By: #### U A #### [facility] [address] [place] [address] XR chest 1V portableon 04-25 XR chest 1V portable [facility] [place] [address] XRay Report Signed Patient: Jerry Wilson MR#: [id number] : 1970 Acct:[id number] Age/Sex: 50 / M ADM Date: 04/24/21 Loc: ER Room: Type: [facility] ER Attending Dr: Ordering Provider: [...] Daphne Hutchinson M.D.04/25/2021 7:58 AM Dictation Location: [address] [address] Transcribed By: [facility] 04/25/21757 Dictated By: Daphne Hutchinson MD 04/25/21756 Signed By: 04/25/21757 Normal [facility] B-Type Natriuretic Peptideon 04-24-2021 Natriuretic peptide B (Bld) [Mass/Vol] 20.0 pg/mL Normal 5-100 [facility] Comment on above: Result Comment: PERF ORMED BY: [facility] [address] [place] [address] PATHOLOGIST SCORING MACHINE OPERATOR HARESH LUI M.D. Performed By: #### H S TROP, CMP, CBC, BNP, MG #### [facility] [address] COVID-19 Antigenon 1 COVID-19 Antigen Results [...] its performance Adolfo Disclaimer characteristic determined by Hang w/ and Adolfo Disclaimer validated at [facility]. This Adolfo Disclaimer test has not been [...] is terminated or revoked sooner. PERFORMED BY: [facility] [address] [place] [address] PATHOLOGIST SCORING MACHINE OPERATOR HARESH LUI M.D. [facility] Comment on above: Performed By: #### C OVID-19 ADOLFO, SOFIAPOS #### [facility] [address] [place] [address] [facility] Complete Blood Count Auto Di ffon 12-14-2021 Basophils (Bld) [#/Vol] 0.0 10*3/uL Normal 0.0-0.2 [facility] Comment on above: Result Comment: PERF ORMED BY: [place] [address] PATHOLOGIST SCORING MACHINE OPERATOR HARESH LUI M.D. Performed By: #### H S TROP, CMP, CBC, BNP, MG #### [address] Basophils/100 WBC (Bld) 0.7 % Normal . [facility] Comment on above: Performed By: #### H S TROP, CMP, CBC, BNP, MG #### [address] Eosinophils (Bld) [#/Vol] 0.1 10*3/uL Normal 0.0-0.45 [facility] Comment on above: Performed By: #### H S TROP, CMP, CBC, BNP, MG #### [address] Eosinophils/100 WBC (Bld) 1.8 % Normal . [facility] Comment on above: Performed By: #### H S TROP, CMP, CBC, BNP, MG #### [address] Erythrocyte distribution width (RBC) [Ratio] 12.9 % Normal 12.0-14.8 [facility] Comment on above: Performed By: #### H S TROP, CMP, CBC, BNP, MG #### [address] Hematocrit (Bld) [Volume fraction] 43.7 % Normal 38.8-50.0 [facility] Comment on above: Performed By: #### H S TROP, CMP, CBC, BNP, MG #### [address] Hemoglobin (Bld) [Mass/Vol] 15.0 g/dL Normal 13.0-17.0 [facility] Comment on above: Performed By: #### H S TROP, CMP, CBC, BNP, MG #### [address] Lymphocytes (Bld) [#/Vol] 0.7 10*3/uL Low 1.00-4.8 [facility] Comment on above: Performed By: #### H S TROP, CMP, CBC, BNP, MG #### [address] Lymphocytes/100 WBC (Bld) 14.0 % Normal . [facility] Comment on above: Performed By: #### H S TROP, CMP, CBC, BNP, MG #### [address] MCH (RBC) [Entitic mass] 29.7 pg Normal 27.5-35.2 [facility] Comment on above: Performed By: #### H S TROP, CMP, CBC, BNP, MG #### [address] MCV (RBC) [Entitic vol] 86.4 fL Normal 83.5-101 [facility] Comment on above: Performed By: #### H S TROP, CMP, CBC, BNP, MG #### [address] Mean Corpuscular HGB Conc 34.4 g/dL Normal 32.5-35.6 [facility] Comment on above: Performed By: #### H S TROP, CMP, CBC, BNP, MG #### [address] Monocytes (Bld) [#/Vol] 1.1 10*3/uL High 0.0-0.8 [facility] Comment on above: Performed By: #### H S TROP, CMP, CBC, BNP, MG #### [address] Monocytes/100 WBC (Bld) 21.3 % Normal . [facility] Comment on above: Performed By: #### H S TROP, CMP, CBC, BNP, MG #### [address] Neutrophils (Bld) [#/Vol] 3.2 10*3/uL Normal 1.8-7.7 [facility] Comment on above: Performed By: #### H S TROP, CMP, CBC, BNP, MG #### [facility] [address] Neutrophils/100 WBC (Bld) 62.2 % Normal . [facility] Comment on above: Performed By: #### H S TROP, CMP, CBC, BNP, MG #### [facility] [address] Nucleated RBC/100 WBC (Bld) [Ratio] 0.2 % Normal 0-0.5 [facility] Comment on above: Performed By: #### H S TROP, CMP, CBC, BNP, MG #### [address] Platelet mean volume (Bld) [Entitic vol] 9.6 fL Normal 6.6-10.1 [facility] Comment on above: Performed By: #### H S TROP, CMP, CBC, BNP, MG #### [facility] [address] Platelets (Bld) [#/Vol] 201 10*3/uL Normal 150-450 [facility] Comment on above: Performed By: #### H S TROP, CMP, CBC, BNP, MG #### [place] [address] [place] RBC (Bld) [#/Vol] 5.06 10*6/uL Normal 3.90-5.60 [facility] Comment on above: Performed By: #### H S TROP, CMP, CBC, BNP, MG #### [facility] [address] [place] [address] [place] WBC (Bld) [#/Vol] 5.2 10*3/uL Normal 4.5-11.0 [facility] Comment on above: Performed By: #### H S TROP, CMP, CBC, BNP, MG #### [facility] [address] Comprehensive Metabolic Pane alan 12-14-2021 Albumin [Mass/Vol] 4.2 g/dL Normal 3.2-5.5 [facility] Comment on above: Performed By: #### H S TROP, CMP, CBC, BNP, MG #### [facility] [address] Albumin/Globulin [Mass ratio] 1.3 {ratio} Normal [facility] Comment on above: Performed By: #### H S TROP, CMP, CBC, BNP, MG #### [facility] [address] ALP [Catalytic activity/Vol] 55 U/L Normal 32-92 [facility] Comment on above: Performed By: #### H S TROP, CMP, CBC, BNP, MG #### [facility] [address] ALT [Catalytic activity/Vol] 85 U/L High 10-60 [facility] Comment on above: Performed By: #### H S TROP, CMP, CBC, BNP, MG #### [facility] [address] [place] [address] AST [Catalytic activity/Vol] 82 U/L High 10-42 [facility] Comment on above: Performed By: #### H S TROP, CMP, CBC, BNP, MG #### [facility] [address] Bilirubin [Mass/Vol] 1.1 mg/dL Normal 0.3-1.2 [facility] Comment on above: Performed By: #### H S TROP, CMP, CBC, BNP, MG #### [facility] [address] [place] [address] [place] Calcium [Mass/Vol] 9.6 mg/dL Normal 8.2-10.2 [facility] Comment on above: Performed By: #### H S TROP, CMP, CBC, BNP, MG #### [facility] [address] [place] [address] [place] Chloride [Moles/Vol] 103 mmol/L Normal 95-114 [facility] Comment on above: Performed By: #### H S TROP, CMP, CBC, BNP, MG #### [facility] [address] CO2 [Moles/Vol] 21.2 mmol/L Low 22.0-30.0 [facility] Comment on above: Performed By: #### H S TROP, CMP, CBC, BNP, MG #### [facility] [address] Creatinine [Mass/Vol] 1.16 mg/dL Normal 0.64-1.27 [facility] Comment on above: Performed By: #### H S TROP, CMP, CBC, BNP, MG #### [address] Creatinine Clr Calc Pharmacy 118.79 [facility] Comment on above: Performed By: #### H S TROP, CMP, CBC, BNP, MG #### [address] Estimated GFR ( Stacey > 60 [facility] Comment on above: Result Comment: GFR estimated reference range: According to KDOQI guidelines, <60 ml/min/1.73m2 is sufficient to diagnose a patient with chronic kidney disease. Performed By: #### H S TROP, CMP, CBC, BNP, MG #### [address] Estimated GFR (Non- Am > 60 [facility] Comment on above: Performed By: #### H S TROP, CMP, CBC, BNP, MG #### [address] Globulin (S) [Mass/Vol] 3.2 g/dL [facility] Comment on above: Performed By: #### H S TROP, CMP, CBC, BNP, MG #### [address] Glucose [Mass/Vol] 144 mg/dL High 70-100 [facility] Comment on above: Result Comment: Glendo Glucose Reference Range is dependent on time and content of last meal. Glucose of more than 200 mg/dL in a nonstressed, ambulatory subject supports the diagnosis of Diabetes Mellitus. ADA recommended reference range Performed By: #### H S TROP, CMP, CBC, BNP, MG #### [address] Potassium [Moles/Vol] 4.0 mmol/L Normal 3.5-5.1 [facility] Comment on above: Performed By: #### H S TROP, CMP, CBC, BNP, MG #### [address] Protein [Mass/Vol] 7.4 g/dL Normal 6.1-7.9 [facility] Comment on above: Performed By: #### H S TROP, CMP, CBC, BNP, MG #### [address] Sodium [Moles/Vol] 135 mmol/L Low 136-146 [facility] Comment on above: Performed By: #### H S TROP, CMP, CBC, BNP, MG #### [address] Urea nitrogen [Mass/Vol] 20 mg/dL Normal 9-23 [facility] Comment on above: Performed By: #### H S TROP, CMP, CBC, BNP, MG #### [address] ECG 12 lead ECGon 04-24-2021 ECG 12 lead ECG [facility] [place] [address] [place] [address] Electrocardiograph Report Signed Patient: Jerry Wilson MR#: [id number] : 1970 Acct:[id number] Age/Sex: 50 / M ADM Date: 04/24/21 Loc: ER Room: Type: [facility] ER Attending Dr: Ordering Provider: Nitesh Pittman [...] sinus rhythm Confirmed by Nitesh PITTMAN DO ([id number]) on 04/25/2021 12:42:23 AM Referred By: Electronically Signed By:Nitesh PITTMAN DO Transcribed By: MUS Signed By Nitesh Pittman DO 1 06/26/20 0042 Normal [facility] Magnesiumon 04-24-2021 Magnesium [Mass/Vol] 1.9 mg/dL Normal 1.6-2.6 [facility] Comment on above: Result Comment: PERF ORMED BY: [place] [address] PATHOLOGIST SCORING MACHINE OPERATOR HARESH LUI M.D. Performed By: #### H S TROP, CMP, CBC, BNP, MG #### [facility] [address] [place] [address] [facility] Partial Thromboplastin Timeo n 04-24-2021 aPTT Coag (Bld) [Time] 29.3 s Normal 25.1-36.5 [facility] Comment on above: Result Comment: PERF ORMED BY: [place] [address] PATHOLOGIST SCORING MACHINE OPERATOR HARESH LUI M.D. Performed By: #### P TT, PT #### [facility] [address] [place] [address] [place] Prothrombin Time INRon 04-24 INR Coag (PPP) [Relative time] 1.0 {INR} Normal [facility] Comment on above: Result Comment: INR Therapeutic [...] Performed By: #### P TT, PT #### [facility] [address] [place] [address] [place] PT Coag (PPP) [Time] 11.5 s Normal 9.0-12.9 [facility] Comment on above: Performed By: #### P TT, PT #### [facility] [address] Adolfo Ag Positiveon 04-24-20 21 Adolfo Ag Positive Positive Critically abnormal Negative [facility] Comment on above: Result Comment: This is a duplicate Adolfo SARS Antigen (KOKO) result to be used for statistical tracking purpose only. PERFORMED BY: [place] [address] PATHOLOGIST SCORING MACHINE OPERATOR HARESH LUI M.D. Performed By: #### C OVID-19 ADOLFO, SOFIAPOS #### [address] Troponin I High Sensitivityo n 04-24-2021 Troponin I High Sensitivity 4 pg/mL Normal 0-20 [facility] Comment on above: Result Comment: PERF ORMED BY: [place] [address] PATHOLOGIST SCORING MACHINE OPERATOR HARESH LUI M.D. Performed By: #### H S TROP, CMP, CBC, BNP, MG #### [address] Follow Up (Pulmonary Medicin e)on 01-12-2021 Follow Up (Pulmonary Medicine) Diagnoses/Problems Dyspnea on exertion (786.09) (R06.00) Sarcoidosis (135) (D86.9) CLEM on CPAP (327.23,V46.8) (G47.33,Z99.89) Orders Cardiopulmonary Stress Test (Met Stress Test); Status:Hold For - Scheduling; Requested for:[id number]; Perform:[facility] ([place]); Due:[id number];Ordered ; For:Dyspnea on exertion; Ordered By:Carter Dangelo; [...] Dr. Zuñiga Other: Dr. Jaimes (pulmonary in [place]) HPI: 11/22/2020: At baseline, he had no [...] He was started on prednisone by his home theatre technician in July. He initially felt slightly improved but shortly started worsening again. 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 Has known exposure to asbestos, silica or beryllium CTD evaluation: No hx of joint pain/swelling, skin rashes, Raynaud's, sicca syndrome, eye redness, muscle pain and weakness, difficulty swallowing. Family History: No family history of lung diseases or cancer Imaging history: (I have personally reviewed the imaging below) 12/15/2020 HRC (more content not included)... Normal [place] Tobacco Screening.on Fall risk assessment a) No falls within the last year [facility] [place] [facility] Work Phone: [phone] Tobacco use status [facility] b) No [facility] [place] [facility] Work Phone: [phone] No Panel Informationon 12-15 [email or web address]?[email or web address] ByDateTime?PatientID= [id number]&Date=2020&Time=13%3a21%3a3 0%3a00&TestType=ECG&S ite=1&OutputType=PDF& Ext=PDF [facility] [place] [facility] Work Phone: [phone] Normal sinus rhythm [facility] [place] [facility] Work Phone: [phone] Normal [facility] [place] [facility] Work Phone: [phone] [facility] [place] [facility] Work Phone: [phone] [facility] [place] [facility] Work Phone: [phone] 1 [facility] [place] [facility] Work Phone: [phone] 1 [facility] [place] [facility] Work Phone: [phone] 1 [facility] [place] [facility] Work Phone: [phone] 1 [facility] [place] [facility] Work Phone: [phone] 1 [facility] [place] [facility] Work Phone: [phone] 1 [facility] [place] [facility] Work Phone: [phone] 1 [facility] [place] [facility] Work Phone: [phone] 1 [facility] [place] [facility] Work Phone: [phone] 1 [facility] [place] [facility] Work Phone: [phone] 1 [facility] [place] [facility] [...] Test; Status:Hold For - Scheduling; Requested for:22Nov2020; Perform:[facility]; Due:20Feb2021;Ordered ; For:ILD (interstitial lung disease); Ordered By:Carter Dangelo; Calcium, Urine 24 Hour; Status:Active; Requested for:22Nov2020; Perform:Lab Services - Lab To Draw (Non-Blood Test); Due:20Feb2021;Ordered ; For:ILD (interstitial lung disease); Ordered By:Carter Dangelo; Complete Blood Count + Differential; Status:In Progress - Specimen/Data Collected; Done: [id number] Perform:Lab Services - Lab To Draw (Blood Test); Due:20Feb2021;Ordered ; For:ILD (interstitial lung disease); Ordered By:Carter Dangelo; Complete PFT w/o ABG; Status:Hold For - Scheduling; Requested for:22Nov2020; Perform:[facility]; Due:20Feb2021;Ordered ; For:ILD (interstitial lung disease); Ordered By:Carter Dangelo; Comprehensive Metabolic Panel; Status:In Progress - Specimen/Data Collected; Done: [id number] Perform:Lab Services - Lab To Draw (Blood Test); Due:20Feb2021;Ordered ; For:ILD (interstitial lung disease); Ordered By:Carter Dangelo; CT Chest without Contrast; Status:Active; Requested for:11Gkg6176; Perform:[facility]iology Services Imaging;Ordered; For:ILD (interstitial lung disease); Ordered By:Carter Dangelo; Patient taking Metformin or Derivatives? : No Radiologist to Determine Optimal Study : Y What are the patient's signs and symptoms? : dyspnea on exertion Echocardiogram; Status:Hold For - Scheduling; Requested for:22Nov2020; Perform:[facility] ([place]); Due:20Feb2021;Ordered ; For:ILD (interstitial lung disease); Ordered By:Carter Dangelo; Electrocardiogram EKG; Status:Hold For - Scheduling; Requested for:22Nov2020; Perform:[facility] [place] [address]; Due:20Feb2021;Ordered ; For:ILD (interstitial lung disease); [...] Daily Vitals Vital Signs Recorded: 22Nov2020 01:10PM Quxzokbgviu69.8 F Heart Rate96 Lwfwjpyi618 Ywnhpjutr36 Rsszui172 lb 14.4 oz Tobacco Useb) No Fall Screeninga) No falls within the last year O2 Ecajdalwno08, RA Pain Scale0 Signatures Electronically signed by : Carter Dangelo MD; Nov 22 2020 5:33PM EST (Author) Normal [facility]works Initial Visit (Pulmonary Med icine)on 11-22-2020 Initial Visit (Pulmonary Medicine) Diagnoses/Problems Daily caffeine consumption Sarcoidosis (135) (D86.9) Mediastinal lymphadenopathy (785.6) (R59.0) Dyspnea on exertion (786.09) (R06.00) CLEM on CPAP (327.23,V46.8) (G47.33,Z99.89) Orders 6 Minute Walk Test; Status:Hold For - Scheduling; Requested for:22Nov2020; Perform:[facility]; Due:20Feb2021;Ordered ; For:ILD (interstitial lung disease); Ordered By:Carter Dangelo; Calcium, Urine 24 Hour; Status:Active; Requested for:22Nov2020; Perform:[facility] Services - Lab To Draw (Non-Blood Test); Due:20Feb2021;Ordered ; For:ILD (interstitial lung disease); Ordered By:Carter Dangelo; Complete Blood Count + Differential; Status:In Progress - Specimen/Data Collected; Done: [id number] Perform:[facility] Services - Lab To Draw (Blood Test); Due:20Feb2021;Ordered ; For:ILD (interstitial lung disease); Ordered By:Carter Dangelo; Complete PFT w/o ABG; Status:Hold For - Scheduling; Requested for:22Nov2020; Perform:[facility]; Due:20Feb2021;Ordered ; For:ILD (interstitial lung disease); Ordered By:Carter Dangelo; Comprehensive Metabolic Panel; Status:In Progress - Specimen/Data Collected; Done: 28Lcp2459 Perform:[facility] Services - Lab To Draw (Blood Test); Due:20Feb2021;Ordered ; For:ILD (interstitial lung disease); Ordered By:Carter Dangelo; CT Chest without Contrast; Status:Active; Requested for:15Dec2020; Perform:[facility] Radiology Services Imaging;Ordered; For:ILD (interstitial lung disease); Ordered By:Carter Dangelo; Patient taking Metformin or Derivatives? : No Radiologist to Determine Optimal Study : Y What are the patient's signs and symptoms? : dyspnea on exertion Echocardiogram; Status:Hold For - Scheduling; Requested for:22Nov2020; Perform:[facility] ([place]); Due:20Feb2021;Ordered ; For:ILD (interstitial lung disease); Ordered By:Carter Dangelo; Electrocardiogram EKG; Status:Hold For - Scheduling; Requested for:22Nov2020; Perform:[facility] [place] [address]; Due:20Feb2021;Ordered ; For:ILD (interstitial lung disease); Ordered By:Carter Dangelo; HIV 1/2 ANTIGEN/ANTIBODY SCREEN WITH REFLEX TO CONFIRMATION; Status:In Progress - Specimen/Data Collected; Done: [id number] Perform:[facility] Services - Lab To Draw (Blood Test); Due:20Feb2021;Ordered ; For:ILD (interstitial lung disease); Ordered By:Carter Dangelo; MISCELLANEOUS TEST; Status:In Progress - Specimen/Data Collected; Done: 45Ppi6561 Perform:Lab Services - Lab To Draw (Non-Blood Test); Order Comments:Beryllium lymphocyte proliferation test; Due:20Feb2021;Ordered ; For:ILD (interstitial lung disease); Ordered By:Carter Dangelo; T-SPOT. TB; Status:In Progress - Specimen/Data Collected; Done: 37Cyt9305 Perform:[facility] Services - Lab To Draw (Blood Test); Due:29Lme7312;Ordered ; For:ILD (interstitial lung disease); Ordered By:Carter Dangelo; Urinalysis; Status:In Progress - Specimen/Data Collected; Done: [id number] Perform:[facility] Services - Lab To Draw (Non-Blood Test); Due:20Feb2021;Ordered ; For:ILD (interstitial lung disease); Ordered By:Carter Dangelo; Vitamin D 25-Hydroxy; Status:In Progress - Specimen/Data Collected; Done: [id number] Perform:[facility] Services - Lab To Draw (Blood Test); Due:20Feb2021;Ordered ; For:ILD (interstitial lung disease); Ordered By:Carter Dangelo; Vitamin-D 1,25-Dihydroxy, Level; Status:In Progress - Specimen/Data Collected; Done: 65Glc6337 Perform:Lab Services - Lab To Draw (Blood [...] will sta (more content not included)... Normal [place] Tobacco Screening.on 021 Fall risk assessment a) No falls within the last year [facility] Work Phone: Tobacco use status CPHS b) No [facility] Work Phone: Consult (Pulmonary Medicine) [...] HFA Social History: Tobacco: Never smoker Occupation: [employer], dust exposure Imaging history: (I have [...] Auto #/vol (Bld) 0.0 10*3/uL Normal 0.0-0.2 [facility] Basophils/100 WBC Auto (Bld) 0.5 % Normal [facility] Eosinophils Auto #/vol (Bld) 0.1 10*3/uL Normal 0.0-0.7 [facility] Eosinophils/100 WBC Auto (Bld) 2.6 % Normal [facility] Erythrocyte distribution width Auto Ratio (RBC) 12.6 % Normal 11.5-14.5 [facility] Hematocrit Auto Volume Fraction (Bld) 38.2 % Low 42.0-52.0 [facility] Hemoglobin mass conc (Bld) 13.1 g/dL Low 14.0-18.0 [facility] Lymphocytes Auto #/vol (Bld) 0.8 10*3/uL Low 1.0-4.8 [facility] Lymphocytes/100 WBC Auto (Bld) 18.0 % Normal [facility] MCH Auto Entitic mass (RBC) 30.7 pg Normal 27.0-31.3 [facility] MCHC Auto mass conc (RBC) 34.4 % Normal 33.0-37.0 [facility] MCV Auto Entitic volume (RBC) 89.3 fL Normal 80.0-100.0 [facility] Monocytes Auto #/vol (Bld) 0.7 10*3/uL Normal 0.2-0.8 [facility] Monocytes/100 WBC Auto (Bld) 14.3 % Normal [facility] Neutrophils Auto #/vol (Bld) 3.0 10*3/uL Normal 1.4-6.5 [facility] Neutrophils/100 WBC Auto (Bld) 64.6 % Normal [facility] Platelets Auto #/vol (Bld) 233 10*3/uL Normal 130-400 [facility] RBC Auto #/vol (Bld) 4.28 10*6/uL Low 4.70-6.10 [facility] WBC Auto #/vol (Bld) 4.6 10*3/uL Low 4.8-10.8 [facility] Sedimentation Rateon 018 Sedimentation Rate 48 mm Critically high 0-10 M [facility] Basic Metabolic Panel Reflex Mgon 05-01-2018 Anion gap 3 molar conc 15 mmol/L Critically high 7-13 [facility] Calcium mass conc 8.9 mg/dL Normal 8.6-10.2 [facility] Chloride molar conc 102 mmol/L Normal 98-107 [facility] CO2 molar conc 22 mmol/L Normal 22-29 [facility] Creatinine mass conc 0.85 mg/dL Normal 0.70-1.20 [facility] GFR/1.73 sq M predicted among blacks MDRD vol rate/area (S/P/Bld) mL/min/{1.73_m2} Normal >60 [facility] Comment on above: Result Comment: >60 mL/min/1.73m2 EGFR, calc. for ages 18 and older using theMDRD formula (not corrected for weight), is valid for stablerenal function. GFR/1.73 sq M.predicted MDRD vol rate/area mL/min/{1.73_m2} Normal >60 [facility] Comment on above: Result Comment: >60 mL/min/1.73m2 EGFR, calc. for ages 18 and older using theMDRD formula (not corrected for weight), is valid for stablerenal function. Glucose mass conc 189 mg/dL Critically high 74-109 [facility] Potassium reflex Mg 4.7 mEq/L Normal 3.5-5.1 [facility] Sodium molar conc 139 mmol/L Normal 132-144 [facility] Urea nitrogen mass conc 19 mg/dL Normal 6-20 [facility] CBC With Platelet and Differ entialon 05-01-2018 Basophils Auto #/vol (Bld) 0.0 10*3/uL Normal 0.0-0.2 [facility] Basophils/100 WBC Auto (Bld) 0.2 % Normal [facility] Eosinophils Auto #/vol (Bld) 0.0 10*3/uL Normal 0.0-0.7 [facility] Eosinophils/100 WBC Auto (Bld) 0.0 % Normal [facility] Erythrocyte distribution width Auto Ratio (RBC) 12.8 % Normal 11.5-14.5 [facility] Hematocrit Auto Volume Fraction (Bld) 40.5 % Low 42.0-52.0 [facility] Hemoglobin mass conc (Bld) 14.3 g/dL Normal 14.0-18.0 [facility] Lymphocytes Auto #/vol (Bld) 0.6 10*3/uL Low 1.0-4.8 [facility] Lymphocytes/100 WBC Auto (Bld) 6.1 % Normal [facility] MCH Auto Entitic mass (RBC) 31.1 pg Normal 27.0-31.3 [facility] MCHC Auto mass conc (RBC) 35.3 % Normal 33.0-37.0 [facility] MCV Auto Entitic volume (RBC) 88.2 fL Normal 80.0-100.0 [facility] Monocytes Auto #/vol (Bld) 0.3 10*3/uL Normal 0.2-0.8 [facility] Monocytes/100 WBC Auto (Bld) 2.6 % Normal [facility] Neutrophils Auto #/vol (Bld) 9.1 10*3/uL Critically high 1.4-6.5 [facility] Neutrophils/100 WBC Auto (Bld) 91.1 % Normal [facility] Platelets Auto #/vol (Bld) 209 10*3/uL Normal 130-400 [facility] RBC Auto #/vol (Bld) 4.60 10*6/uL Low 4.70-6.10 [facility] WBC Auto #/vol (Bld) 9.9 10*3/uL Normal 4.8-10.8 [facility] XR LUMBAR SPINE (2-3 VIEWS)o [...] Rodríguez, DOSigned by:Matteo Rodríguez, DO05/01/18Final result Normal [facility] Antibody IDon 04-30-2018 Antibody ID PATIENT: LAURO Chan LOC: [facility]IL[facility]ERT RIVERA NONBILL# : [id number] : 1970 SEX: MORDERED BY: SAVANAH BILLS ORDERED : 04/30/2018 11:55 COLLECTED: 04/30/2018 10:45ORDER : [id number] RECEIVED : 04/30/2018 10:45 Notified Cardoza Surg of positive ab screen and delay of compatible blood 04/30/18 11:40 Erika Rodgers TEST NAME RESULT UNITS RANGES ABN FL STAntibody ID POS, Cold Auto Aggluti F Normal [facility] Basic Metabolic Panel Reflex Mgon 04-30-2018 Anion gap 3 molar conc 17 mmol/L Critically high 7-13 [facility] Calcium mass conc 9.1 mg/dL Normal 8.6-10.2 [facility] Chloride molar conc 102 mmol/L Normal 98-107 [facility] CO2 molar conc 20 mmol/L Low 22-29 [facility] Creatinine mass conc 1.07 mg/dL Normal 0.70-1.20 [facility] GFR/1.73 sq M predicted among blacks MDRD vol rate/area (S/P/Bld) mL/min/{1.73_m2} Normal >60 [facility] Comment on above: Result Comment: >60 mL/min/1.73m2 EGFR, calc. for ages 18 and older using theMDRD formula (not corrected for weight), is valid for stablerenal function. GFR/1.73 sq M.predicted MDRD vol rate/area mL/min/{1.73_m2} Normal >60 [facility] Comment on above: Result Comment: >60 mL/min/1.73m2 EGFR, calc. for ages 18 and older using theMDRD formula (not corrected for weight), is valid for stablerenal function. Glucose mass conc 132 mg/dL Critically high 74-109 [facility] Potassium reflex Mg 4.1 mEq/L Normal 3.5-5.1 [facility] Sodium molar conc 139 mmol/L Normal 132-144 [facility] Urea nitrogen mass conc 21 mg/dL Critically high 6-20 [facility] CBC With Platelet No Differe ntialon 04-30-2018 Erythrocyte distribution width Auto Ratio (RBC) 12.9 % Normal 11.5-14.5 [facility] Hematocrit Auto Volume Fraction (Bld) 43.8 % Normal 42.0-52.0 [facility] Hemoglobin mass conc (Bld) 15.0 g/dL Normal 14.0-18.0 [facility] MCH Auto Entitic mass (RBC) 30.7 pg Normal 27.0-31.3 [facility] MCHC Auto mass conc (RBC) 34.3 % Normal 33.0-37.0 [facility] MCV Auto Entitic volume (RBC) 89.5 fL Normal 80.0-100.0 [facility] Platelets Auto #/vol (Bld) 208 10*3/uL Normal 130-400 [facility] RBC Auto #/vol (Bld) 4.89 10*6/uL Normal 4.70-6.10 [facility] WBC Auto #/vol (Bld) 10.4 10*3/uL Normal 4.8-10.8 [facility] BRIAN Poly Tubeon 04-30-2018 BRIAN Poly Tube PATIENT: LAURO Chan LOC: LCOPS,ORPOOL,NONBILL# : [id number] : 1970 SEX: MORDERED BY: SAVANAH BILLS ORDERED : 04/30/2018 12:48 COLLECTED: 04/30/2018 10:45ORDER : [id number] RECEIVED : 04/30/2018 10:45 Notified Card[facility] Surg of positive ab screen and delay of compatible blood 04/30/18 11:40 Erika Rodgers TEST NAME RESULT UNITS RANGES ABN FL STDAT Poly Tube NEG F Normal [facility] FLUORO FOR SURGICAL PROCEDUR ESon 04-30-2018 FLUORO [...] ANN Lucianoigned by:Cruz Ledesma MD05/01/18inal result Normal [facility] RBC LRon 04-30-2018 RBC Auto #/vol (Bld) PATIENT: LAURO Chan LOC: LC2N,N226,01BILL# : [id number] : 1970 SEX: MORDERED BY: SAVANAH BILLS ORDERED : 04/30/2018 11:55 COLLECTED: 04/30/2018 18:46ORDER : [id number] RECEIVED : 04/30/2018 19:12 Notified [facility] of positive ab screen and delay of compatible blood 04/30/18 11:40 Erika Rodgers TEST NAME RESULT UNITS RANGES ABN FL STRBC LR [id number] RBC LR W0 F = Normal [facility] Rejection Notificationon Rejected Test tyrcc Normal [facility] Type and Screen Capture 3 sc rn cellon 04-30-2018 Type and Screen Capture 3 scrn cell PATIENT: LAURO Chan LOC: [facility]IVERA NONBILL# : [id number] : 1970 SEX: MORDERED BY: SAVANAH BILLS ORDERED : 04/30/2018 10:06 COLLECTED: 04/30/2018 10:45ORDER : [id number] RECEIVED : 04/30/2018 10:45 Notified [facility] of positive ab screen and delay of compatible blood 04/30/18 11:40 Erika Rodgers TEST NAME RESULT UNITS RANGES ABN FL STABORH Capture B POS FAntibody 3 Cell Scrn Captu POS F Normal [facility] Vital Signs Date Time Vital Sign Value Performing Clinician Facility 07-30-2024 09:30-0400 Body temperature 97.7 [degF] Sofie Durbin MD Work Phone: [facility] 07-30-2024 09:30-0400 Diastolic blood pressure 60 mm[Hg] Sofie Durbin MD Work Phone: [facility] 03-21-2025 09:30-0400 Heart rate 80 /min Sofie Durbin MD Work Phone: [facility] 07-30-2024 09:30-0400 Respiratory rate 18 /min Sofie Durbin MD Work Phone: [facility] 07-30-2024 09:30-0400 SaO2% (BldA) [Mass fraction] 92 % Sofie Durbin MD Work Phone: [facility] 07-30-2024 09:30-0400 Systolic blood pressure 126 mm[Hg] Sofie Durbin MD Work Phone: [facility] 07-29-2024 22:04-0400 Body height 177.8 cm Sofie Durbin MD Work Phone: [facility] 07-29-2024 22:04-0400 Body mass index (BMI) [Ratio] 47.35 kg/m2 Sofie Durbin MD Work Phone: [facility] 07-29-2024 22:04-0400 Body weight 149.68 kg Sofie Durbin MD Work Phone: [facility] Comment on above: ACTUAL BED WEIGHT 05-24-2024 09:54-0500 Diastolic blood pressure 88 mm[Hg] Alex PANG [facility] 05-24-2024 09:54-0500 Heart rate 80 /min Alex PANG [facility] 05-24-2024 09:54-0500 Respiratory rate 16 /min Alex PANG [facility] 05-24-2024 09:54-0500 Systolic blood pressure 152 mm[Hg] Alex PANG [facility] 02-11-2023 14:18-0400 Blood Pressure Location Bill MONAE [facility] [place] 02-11-2023 14:18-0400 Diastolic blood pressure 104 mm[Hg] Bill MONAE [facility] [place] 02-11-2023 14:18-0400 Heart rate 80 /min Bill MONAE [facility] [place] 02-11-2023 14:18-0400 Respiratory rate 16 /min Bill MONAE [facility] [place] 02-11-2023 14:18-0400 Systolic blood pressure 140 mm[Hg] Bill MONAE [facility] [place] 01-12-2021 13:17-0400 Body temperature 96.1 [degF] Referring [...] Type Care Provider Facility Start: 08-10-2024 ambulatory [facility] Start: 07-29-2024 End: 07-30-2024 Subsequent hospital visit by physician Jona Meneses [facility] Comment on above: Calculus of kidney Kidney stone (Primar y Dx); Calculus of kidney; Right kidney stone Start: 07-29-2024 End: 07-30-2024 ambulatory [facility] Start: 07-19-2024 End: 07-19-2024 ambulatory [facility] Start: 07-19-2024 End: 07-19-2024 ambulatory [facility] Start: 07-19-2024 End: 07-19-2024 Encounter for other preprocedural examination [facility] Start: 05-24-2024 End: 05-24-2024 ambulatory Alex Noel PANG Facility:[facility] Start: 05-24-2024 End: 05-24-2024 Patient encounter procedure Alex Cohen POLY [facility] [place] Start: 03-30-2024 End: 03-30-2024 ambulatory JAIME KAPLAN Facility[facility] Start: 03-30-2024 End: 03-30-2024 Lab Drop off JAIME KAPLAN [facility] Start: 03-30-2024 End: 03-30-2024 ambulatory PA-C JAIME KAPLAN Facility:[facility] Start: 03-30-2024 End: 03-30-2024 Patient encounter procedure JAIME KAPLAN [facility] Start: 03-05-2024 ambulatory Alex PANG Facility:[facility] Start: 04-22-2023 End: 04-22-2023 Patient encounter procedure Bill MONAE [facility] [place] Start: 02-11-2023 End: 02-11-2023 Patient encounter procedure Bill MONAE [facility] [place] Start: 09-13-2022 End: 09-13-[address] DORON ZUÑIGA . [email or web address] Other Start: 09-13-2022 Patient encounter procedure Halie Sam [facility] Start: 08-16-2022 Encounter for genera l adult medical examination without abnormal findings DR DORON ZUÑIGA . [facility] Start: 08-10-2022 End: 08-11-[address] [...] 05-07-2018 End: 05-07-2018 Emergency department patient visit [facility] Start: 05-07-2018 Encounter for genera l adult medical examination without abnormal findings [facility] Start: 04-30-2018 End: 05-03-2018 Patient encounter procedure [facility] Start: 04-30-2018 End: 05-02-2018 Evaluation and management of inpatient [facility] Patient encounter status Referri ng Provider Unknown [...] Performed By: #### P NESTOR BENITO #### [facility] [address] [place] [address] Dr. Frank Nugent Start: 07-19-2020 Basic metabolic 1998 panel - Serum or Plasma Staurt Lamont Start: 07-19-2020 Blood count complete auto&auto [...] SAVANAH Start: 04-30-2018 Comprehensive metabo lic panel GIACMOO SAVANAH Start: 04-30-2018 Blood count complete automated [...] Screening for malign ant neoplasm of colon [facility] Start: 07-29-2025 Diabetes mellitus screening Diabetes Screening [facility] Start: 01-11-2024 COVID-19 Vaccine ( season) COVID-19 Vaccine ( season) [facility] Start: 01-11-2024 Influenza vaccination Influenza Vacc ine (#1) [facility] Start: 2022 Pneumococcal vaccination Pneumococcal Vaccine (1 of 1 - PCV) [facility] Start: 2022 Zoster Vaccines (1 o f 2) Zoster Vaccines (1 of 2) [facility] Start: 01-12-2021 FUV, Provider: Carter Dangelo, Status: [...] - Tdap) DTaP/Tdap/Td Vaccines (1 - Tdap) [facility] Start: 10-05-1991 Hepatitis A Vaccines (1 of 2 - Risk 2-dose series) Hepatitis A Vaccines (1 of 2 - Risk 2-dose series) [facility] Start: 10-05-1991 Hepatitis B Vaccines (1 of 3 - 19+ 3-dose series) Hepatitis B Vaccines (1 of 3 - 19+ 3-dose series) [facility] Start: 1990 Hepatitis C screening Hepatitis C [facility] Start: 1973 MMR Vaccines (1 of 1 - Standard series) MMR Vaccines (1 of 1 - Standard series) [facility] Start: 1972 Lipid panel Lipid Panel [facility] Start: 1972 Screening for malign ant neoplasm of colon [facility] Start: 1972 Yearly Adult Physical Yearly Adult P hysical [facility] Calculi (Stone) Analysis [facility] Service Area Work Phone: Comment on above: Release Upon Eduardoin g for 1 Occurrences starting 07/29/2024 End: 07-29-2024 Guidance for dilation of existing nephrostomy tract and placement of nephrostomy tube at new site of Kidney [facility] Service Area Work Phone: Comment on above: Once for 1 Occurrenc es starting 07/29/2024 until 07/29/2024 End: 07-29-2024 Incentive spirometry Instruct Incentive spirometry Instruct Respiratory Care Routine Once for 1 Occurrences starting 07/29/2024 until 07/29/2024 [facility] Work Phone: Comment on above: Once for 1 Occurrenc es starting 07/29/2024 until 07/29/2024 End: 07-29-2024 Noninvasive Ventilation Patient to use: At night; Mode: CPAP; Ventilation type: CPAP; PEEP/CPAP (cm H2O): 10 Noninvasive Ventilation Patient to use: At night; Mode: CPAP; Ventilation type: CPAP; PEEP/CPAP (cm H2O): 10 Respiratory Care Routine Continuous until discontinued starting 07/29/2024 [facility] Service Area Work Phone: Comment on above: Continuous until dis continued starting 07/29/2024 End: 07-29-2024 [place] Guidance for fluid aspiration of Unspecified body region [facility] Service Area Work Phone: Comment on [...] Date Payer Category Payer Managed Care (Private) [facility] [employer] [id number] 2017 Unknown [id number] 1970 Unknown [id number] [id number]. 2.182 1970 Unknown [id number] [id number]. 2.182 1972 Unknown [id number] 2.16.840.1.724997.3.579. 2.182 1972 Unknown [id number] 2.16.840.1.093499.3.579. 2.593 1970 Unknown [id number] 2.16.840.1.258094.3.579. 2.593 1970 Unknown [id number] 2.16.840.1.706389.3.579. 2.727 1972 Unknown [id number] 2.16.840.1.330686.3.579. 2.727 1972 Unknown [id number] 2.16.840.1.480049.3.579. 2.727 1972 Unknown [id number] 2.16.840.1.548077.3.579. 2.1243 1970 Unknown [id number] 1970 Unknown [id number] 1972 Unknown [id number] 1972 Unknown [id number] 1959 Unknown [id number] Unknown Social History Date Type Detail Facility Start: 07-29-2024 End: 07-30-2024 Never a smoker Never a smoker [facility] Start: 07-29-2024 End: 07-30-2024 Sex Assigned At [facility] Start: 02-11-2023 End: 07-19-2024 Tobacco smoking status Never smoked tobacco (finding) [facility] Tobacco smoking status Never [facility] Start: 07-19-2024 Tobacco use and exposure Smokeless tobacco non-user [facility] Work Phone: Start: 07-29-2024 Alcoholic beverage intake Current drinker of alcohol (finding) [facility] Work Phone: Has the [employer], gas, oil, or water [employer] threatened to shut off services in your home in past 12Mo No [facility] Work Phone: Are you now , , , , never or living with a partner? [facility] Work Phone: How often to you hav e a drink containing alcohol? Monthly or less [facility] Work Phone: How many standard drinks containing alcohol do you have on a typical day? 1 or 2 [facility] Work Phone: How often do you hav e 6 or more drinks on 1 occasion? Never [facility] Work Phone: Do you feel stress - tense, restless, nervous, or anxious, or unable to sleep at night because your mind is troubled all the time - these days [OSQ] Not at all [facility] Work Phone: (I/We) worried whether (my/our) food would run out before (I/we) got money to buy more. Never true [facility] Work Phone: Start: 07-19-2024 Alcohol Comment 4-5 drinks/year [facility] Work Phone: Start: 1970 Sex assigned at Not on file [facility] Work Phone: Start: 07-29-2024 Sexual orientation Heterosexual (mario chacon) [facility] Start: 07-19-2024 End: 07-29-2024 Exposure to SARS-CoV-2 (event) Not sure [facility] NEGATED: Highlighted row - - [facility] Work Phone: Medical Equipment Procedure Code Equipment Code Equipment Origin al Text Equipment Identifier Dates Stent, Ureteral Contour, 6fr X 28cm - [id number] Start: 07-29-2024 Stent, Ureteral Percuflex 6 X 28 - [id number] Start: 07-29-2024 Functional Status Date Assessment Result Facility 05-24-2024 Functional Status N/A [facility] 03-30-[facility]24 Functional Status N/A [facility] 02-11-2023 Functional Status N/A [facility] NEGATED: Highlighted row Functional performance Functional status health issues are not documented Disease [facility] Work Phone: Mental Status Date Assessment Result [...] were you homeless or living in a mcfp (including now)? N Transportation Needs In the [...] spouse. PCP is Dr Zuñiga. He uses [facility] in [place] for prescriptions. Patient feels he effectively manages his health at home and plans to return home when medically ready. documented in this encounter [facility] Work Phone: 07-30-2024 Hospital course Narrative Discharge [...] Sofie Durbin MD documented in this encounter [facility] Work Phone: 07-30-2024 Hospital Discharge instructions Sofie [...] for 2 weeks. documented in this encounter [facility] Work Phone: 07-30-2024 Nurse Note Pt. Slept [...] pt. Did well volume up to 1500ml. [facility] Work Phone: 07-30-2024 Nurse Note Pt. Slept [...] up to 1500ml. documented in this encounter [facility] Work Phone: 07-30-2024 Plan of care note [...] saturation per order/standard this shift Outcome: Progressing [facility] Work Phone: 07-30-2024 Miscellaneous Notes The patient's [...] the time being until verified with Urology MANAGER MOUNTAIN/PA or Dr. Durbin in the morning. Operative Note Location: [place], [place] Date: 07/29/2024 Jerry Wilson [id number] Surgeon: Sofie Durbin MD Quality Management Coordinator: None Pre-operative diagnosis: Right nephrolithiasis, calyceal diverticulum [...] to dilating the tract up to 30 [place] I decided to begin with a mini [...] 07/29/2024 6:50 PM documented in this encounter [facility] Work Phone: 07-30-2024 Plan of care note Was notified by RN that patient's urine remains ovalle red/pink in color this morning, there is an order to remove Verdin at 0600, but due to continued hematuria will have to confirm with urology in the morning if verdin should be removed. Verdin to remain in place for the time being until verified with Urology MANAGER MOUNTAIN/PA or Dr. Durbin in the morning. [facility] Work Phone: 07-29-2024 Surgery Surgical operation note Operative Note Location: [facility] [place], [place] Date: 07/29/2024 Jerry Wilson [id number] Surgeon: Sofie Durbin MD Quality Management Coordinator: None Pre-operative diagnosis: Right nephrolithiasis, calyceal diverticulum [...] to dilating the tract up to 30 [place] I decided to begin with a mini [...] Sofie Durbin MD, MD 07/29/2024 6:50 PM [facility] Work Phone: 07-29-2024 Attending History and physical [...] upper pole. Source Note - Natalia To APRN-FELT PULLER - 07/19/2024 9:45 AM EDT Images from [...] Flowsheet Row Pre-Admission Testing from 07/19/2024 in [facility] Can you take care of yourself (eat, [...] Flowsheet Row Pre-Admission Testing from 07/19/2024 in [facility] DVT Score (IF A SCORE IS NOT CALCULATING, MUST SELECT A BMI TO COMPLETE) 6 filed at 07/19/2024 1007 Surgical Factors Major surgery planned, including arthroscopic and laproscopic (1-2 hours) filed at 07/19/2024 1007 BMI (BMI MUST BE CHOSEN) Greater than 50 (Venous stasis syndrome) filed at 07/19/2024 1007 Modified Frailty Index Flowsheet Row Pre-Admission Testing from 07/19/2024 in [facility] Non-independent functional status (problems with dressing, bathing, personal grooming, or cooking) 0 filed at 07/19/2024 1009 History of diabetes mellitus 0.0909 filed at 07/19/2024 1009 History of COPD 0 filed at 07/19/2024 1009 History of CHF No filed at 07/19/2024 1009 History of MT 0 filed at 07/19/2024 1009 History of [...] Index Calculator .1818 filed at 07/19/2024 1009 [id number] Stroke Risk Points Current as of just now N/A 0 to 9 Points: Last Change: N/A The [id number] risk score (Lip WALLY, et al. 2009. 2010 [employer]) quantifies the risk of stroke for a patient with atrial fibrillation. For patients without atrial fibrillation or under the age of 18 this score appears as N/A. Higher score values generally indicate higher risk of stroke. This score is not applicable to this patient. Components are not calculated. Revised Cardiac Risk Index Flowsheet Row Pre-Admission Testing from 07/19/2024 in [facility] High-Risk Surgery (Intraperitoneal, Intrathoracic,Suprainguinal vascular) 0 filed at 07/19/2024 1007 History of ischemic heart disease (History of MT, History of positive exercuse test, Current chest [...] Flowsheet Row Pre-Admission Testing from 07/19/2024 in [facility] Smoking status 1 filed at 07/19/2024 1008 [...] working well, or seeing a kidney doctor (marketing technology coordinator)? If yes, was this for kidney stones [...] Flowsheet Row Pre-Admission Testing from 07/19/2024 in [facility] Do you snore loudly? 0 filed at [...] Flowsheet Row Pre-Admission Testing from 07/19/2024 in [facility] Age Calculated Score 3 filed at 07/19/2024 [...] Flowsheet Row Pre-Admission Testing from 07/19/2024 in [facility] Calculated Age Score 1.02 filed at 07/19/20241008 [...] surgery *See risk scores as previously documented [facility] Work Phone: 07-29-2024 History and physical note [...] Flowsheet Row Pre-Admission Testing from 07/19/2024 in [facility] Can you take care of yourself (eat, [...] Flowsheet Row Pre-Admission Testing from 07/19/2024 in [facility] DVT Score (IF A SCORE IS NOT CALCULATING, MUST SELECT A BMI TO COMPLETE) 6 filed at 07/19/2024 1007 Surgical Factors Major surgery planned, including arthroscopic and laproscopic (1-2 hours) filed at 07/19/2024 1007 BMI (BMI MUST BE CHOSEN) Greater than 50 (Venous stasis syndrome) filed at 07/19/2024 1007 Modified Frailty Index Flowsheet Row Pre-Admission Testing from 07/19/2024 in [facility] Non-independent functional status (problems with dressing, bathing, personal grooming, or cooking) 0 filed at 07/19/2024 1009 History of diabetes mellitus 0.0909 filed at 07/19/2024 1009 History of COPD 0 filed at 07/19/2024 1009 History of CHF No filed at 07/19/2024 1009 History of MT 0 filed at 07/19/2024 1009 History of [...] Index Calculator .1818 filed at 07/19/2024 1009 [id number] Stroke Risk Points Current as of just now N/A 0 to 9 Points: Last Change: N/A The [id number] risk score (Lip WALLY, et al. 2009. 2010 [employer] [employer]) quantifies the risk of stroke for a patient with atrial fibrillation. For patients without atrial fibrillation or under the age of 18 this score appears as N/A. Higher score values generally indicate higher risk of stroke. This score is not applicable to this patient. Components are not calculated. Revised Cardiac Risk Index Flowsheet Row Pre-Admission Testing from 07/19/2024 in [facility] High-Risk Surgery (Intraperitoneal, Intrathoracic,Suprainguinal vascular) 0 filed at 07/19/2024 1007 History of ischemic heart disease (History of MT, History of positive exercuse test, Current chest [...] Flowsheet Row Pre-Admission Testing from 07/19/2024 in [facility] Smoking status 1 filed at 07/19/2024 1008 [...] working well, or seeing a kidney doctor (marketing technology coordinator)? If yes, was this for kidney stones [...] Flowsheet Row Pre-Admission Testing from 07/19/2024 in [facility] Do you snore loudly? 0 filed at [...] Flowsheet Row Pre-Admission Testing from 07/19/2024 in [facility] Age Calculated Score 3 filed at 07/19/2024 [...] Flowsheet Row Pre-Admission Testing from 07/19/2024 in [facility] Calculated Age Score 1.02 filed at 07/19/2024 [...] been discussed with the patient and/or their personal financial representative. All questions answered and they agree to proceed. [facility] Work Phone: 07-29-2024 Miscellaneous Notes Interventional Radiology Brief Postprocedure Note Attending: Radhames Romero MD Quality Management Coordinator: none Diagnosis: 1. Calculus of kidney IR [...] been discussed with the patient and/or their personal financial representative. All questions answered and they agree to proceed. documented in this encounter [facility] Work Phone: 07-29-2024 Surgery Postoperative evaluation and management note Interventional Radiology Brief Postprocedure Note Attending: Radhames Romero MD Quality Management Coordinator: none Diagnosis: 1. Calculus of kidney IR [...] or complication and is in stable condition. [facility] Work Phone: 05-24-2024 Hospital Discharge instructions Patient [...] including vitamins, herbs, eye drops, creams, and irki-edz-rmqxcsl medicines. Any problems you or family members [...] unless your provider tells you to. ?Taking izjf-tlh-vijkdni medicines, vitamins, herbs, and supplements. Tests You [...] provider. Document Revised: 12/27/2022 Document Reviewed: 12/27/2022 [employer] Patient Education 2023 [employer] 05/24/2024 10:25:38 Percutaneous Nephrolithotomy Percutaneous Nephrolithotomy [...] including vitamins, herbs, eye drops, creams, and pqfx-fci-rtowndr medicines. Any problems you or family members [...] unless your provider tells you to. Taking pdcm-zgx-bltkeso medicines, vitamins, herbs, and supplements. Tests You [...] provider. Document Revised: 12/26/2022 Document Reviewed: 12/26/2022 [employer] Patient Education 2023 [employer]. Follow Up Care 03/30/2024 10:32:55 With:POLY ISIDRO, Alex Cohen, GABEL Address: [address] [place] [address] [place], [place] [id number]- When: Unknown [facility] Renetta 05-24-2024 Note Patient Education Nephrology Laser [...] including vitamins, herbs, eye drops, creams, and rxgg-pvg-zjzhjnk medicines. ??? Any problems you or family [...] your provider tells you to. ? Taking xtgi-pgq-mjnkiyc medicines, vitamins, herbs, and supplements. Tests ??? [...] This helps yo (more content not included)... [facility] 03-30-2024 Hospital Discharge instructions Patient Education 03/30/2024 16:23:00 Kidney Stones, Vtgw-tv-Jsjm Kidney Stones Kidney stones are rock-like masses [...] Follow these instructions at home: Medicines Take fmje-kyt-xbamowm and prescription medicines only as told by [...] provider. Document Revised: 12/20/2022 Document Reviewed: 12/20/2022 [employer] Patient Education 2023 [employer]. Follow Up Care 03/16/2024 13:13:27 With:POLY ISIDRO, Alex Cohen, URL Address: [facility] [employer] [place] [id number]- When:Within 6 Week(s) [facility] 03-30-2024 Note Urology Office/Clini c Note Chief [...] next ov. Ordered: HgbA1c Lab Specimen Collect [id number] PSA Total Urnls Dip Stick Auto w/o Microscopy POC 31314 4. Kidney stone (N20.0: Calculus of kidney) KUB done 01/23/23 showing Rt. nephrolithiasis with 1.1 cm stone projected over the pelvis, cannot r/o UPJ stone. CT done 01/29/23 - no hydro, +R stones (no details on size/location). -update imaging w/ KUB+KEVYN. Return to discuss possible stone tx w . Ordered: [id number] Measure Post Void residual urine and/or bladder capacity by US- non-imaging HgbA1c Lab Specimen Collect [id number] PSA Total US Renal XR Abdomen 1 View 5. Diabetes (E11.9: Type 2 diabetes mellitus without complications) A1C 7.5 done 08/10/22 Not sure of his DM meds. Discussed DM effect on LUTS. -A1c drawn IO today. Ordered: HgbA1c Lab Specimen Collect [id number] PSA Total 6. ED (erectile dysfunction) (N52.9: [...] day(s), # 60 cap(s), Refills(s) 11, Pharmacy: [id number], 180, cm, 03/30/24 9:46:00 EST, Height/Length Dosing, 149.8, kg, 03/30/24 9:46:00 EST, Weight Dosing Follow-up With When Contact Information POLY ISIDRO, Alex P, URL In [address] [place] [address]- Additional Instructions: Patient Education Kidney Stones, Wwhp-ax-Wyga Problem List/Past Medical History Ongoing Abnormal abdominal CT scan BMI 50.0-59.9, adult BPH with obstruction/lower urinary tract symptoms Diabetes ED (erectile dysfunction) Frequent UTI Hepatic steatosis Hepatomegaly History of nephrolithiasis HTN (hypertension) Hypercholesteremia Hyperplastic rectal polyp Interstitial lung disease LLQ abdominal pain Mediastinal lymphadenopathy Mediastinal lymphadenopathy Morbid obesity Obstructive sleep apnea syndrom (more content not included)... [facility] Comment on above: Result Comment: [...] these instructions at home: Medicines ??? Take flob-sgm-xfdskqs and prescription medicines only as told by [...] provider. Document Revised: 12/20/2022 Document Reviewed: 12/20/2022 [employer] Patient Education ? 2023 [employer]. [facility] 11-22-2020 History of Present illness Narrative Mr. Wilson is a 50 y.o man, never a smoker, being evaluated for dyspnea on exertion and sarcoidosis.PCP: Dr. Pereira: Dr. Jaimes (pulmonary in [place])HPI:11/22/2020: At baseline, he had no dyspnea on [...] He was started on prednisone by his home theatre technician in July. He initially felt slightly improved but shortly started worsening again. 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 Has known exposure to asbestos, silica or [...] body habitus. ?RV enlargement but preserved RV kunbyxbj16/13/2020 -> NM stress test with No ischemia, normal wall motion, lower normal EF, left ventriculomegalyLabs:None on record [facility] Work Phone: 11-22-2020 History of Present illness Narrative Mr. Wilson is a 50 y.o man, never a smoker, being evaluated for dyspnea on exertion and sarcoidosis.PCP: Dr. Pereira: Dr. Jaimes (pulmonary in [place])HPI:11/22/2020: At baseline, he had no dyspnea on [...] He was started on prednisone by his home theatre technician in July. He initially felt slightly improved but shortly started worsening again. 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 Has known exposure to asbestos, silica or [...] body habitus. ?RV enlargement but preserved RV jxrmxwes82/13/2020 -> NM stress test with No ischemia, normal wall motion, lower normal EF, left ventriculomegalyLabs:None on record [facility] Work Phone: 11-22-2020 History of Present illness Narrative Mr. Wilson is a 50 y.o man, never a smoker, being evaluated for dyspnea on exertion and sarcoidosis.PCP: Dr. Pereira: Dr. Jaimes (pulmonary in [place])HPI:11/22/2020: At baseline, he had no dyspnea on [...] He was started on prednisone by his home theatre technician in July. He initially felt slightly improved but shortly started worsening again. 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 Has known exposure to asbestos, silica or [...] body habitus. ?RV enlargement but preserved RV ygmzeavh52/13/2020 -> NM stress test with No ischemia, normal wall motion, lower normal EF, left ventriculomegalyLabs:None on record [facility] Work Phone: 11-22-2020 History of Present illness Narrative Mr. Wilson is a 50 y.o man, never a smoker, being evaluated for dyspnea on exertion and sarcoidosis.PCP: Dr. Pereira: Dr. Jaimes (pulmonary in [place])HPI:11/22/2020: At baseline, he had no dyspnea on [...] He was started on prednisone by his home theatre technician in July. He initially felt slightly improved but shortly started worsening again. 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 Has known exposure to asbestos, silica or berylliumCTD evaluation: No hx of joint pain/swelling, skin rashes, Raynaud's, sicca syndrome, eye redness, muscle pain and weakness, difficulty swallowing.Family History:No family history of lung diseases or cancerImaging history: (I have personally reviewed the imaging below)12/15/2020 HRCT with hilar/mediastinal ADP but clear obsbjxvnfb67/24/2021: CTPE with hilar/mediastinal ADP but clear parenchymaPFTs:01/12/2021 -> Ratio of 0.77/FEV1 3.67L (74%) (no BD response)/FVC 2.82L (72%)/TLC 76%/RVtoTLC ratio 0.42/DLCO 89%6 MWTs:01/12/2021->on RA, 191 m. Peak SpO2 of 95%. Gary SpO2 92%. (HR went up from 85 to 120 and BP from 150-202 systolic)Lung biopsy: None on recordEcho:12/15/2020 -> Normal EF, no diastolic dysfunction, with normal LA, RV size and cipcequc99/24/2020 -> difficult to interpret images, probably 2/2 body habitus. ?RV enlargement but preserved RV aksdxqcu70/13/2020 -> NM stress test with No ischemia, normal wall motion, lower normal EF, left ventriculomegalyLabs:CBC with lymphopenia (590)low 25 [place] vitamin D but high 1-25 [place] vitamin D, elevated 24hr urine calcium without hematuria [facility] [facility] Work Phone: Evaluation + Plan note No data available for this section General Surgery [place] Evaluation + Plan note Future Appointments Appointment Date:05/24/2024 09:30:00 AM Scheduled Provider:POLY ISIDRO, Alex Cohen Location:[facility] Appointment Type:URO Office Visit [facility] Evaluation + Plan note [facility] Evaluation note No Information [facility] Other Evaluation note Diagnosis Calculus of kidney documented in this encounter [facility] Work Phone: Evaluation note* Diagnosis Right kidney stone- Primary Kidney stone Calculus of kidney Calculus of kidney Right kidney stone Preop general physical exam- Primary Other specified pre-operative examination Kidney stone Calculus of kidney Preop examination Unspecified pre-operative examination documented in this encounter [facility] Work Phone: History general Narrative - Reported* Type Description Date Medical History Hypertension Medical History hypercholesterolemia Medical History back pain Medical History rotator cuff tear Surgical History rotator cuff Surgical History back surgery X2 Hospitalization History see above [email or web address] Other Hospital Discharge instructions No data available for this section General Surgery [place] Progress note No data available for this section General Surgery [facility] Reason for referral (narrative) Referred by: POLY ISIDRO, Alex Cohen [facility] Reason for visit Narrative* Auth/Cert (Routine) Specialty Diagnoses / Procedures Referred By Amber lemus Referred To Contact Diagnoses Calculus of kidney Calculus of kidney [N20.0] Procedures VA PERQ NL/PL LITHOTRP SIMPLE UP TO 2 CM 1 LOCATION VA PLMT NEPHROSTOMY CATH PRQ NEW ACCESS RS&I VA NJX PX ANTEGRDE NFROSGRM &/URTRGRM NEW ACCESS NEPHROLITHOTOMY, PERCUTANEOUS W/HOLMIUM LASER, NEPH TUBE PLACEMENT IN I.R. AT: 1000 AM NEPHROLITHOTOMY, PERCUTANEOUS W/HOLMIUM LASER, NEPH TUBE PLACEMENT IN I.R. AT: 1000 AM NEPHROLITHOTOMY, PERCUTANEOUS W/HOLMIUM LASER, NEPH TUBE PLACEMENT IN I.R. AT: 1000 [place] [address] [address] [address] Phone: tel: fax: [place] [address] [place] [address] fax: Referral ID Status Reason Start Date Expiration Date Visits Re quested Visits Authorized [id number] 1 1 [facility] Work Phone: Summary Purpose Family History No [...] and content) DATE CREATED AUTHOR 05/08/2018 [facility] DATE CREATED AUTHOR AUTHOR'S ORGANIZ ATION 01/14/2021 [employer] DATE CREATED AUTHOR AUTHOR'S ORGANIZ ATION 07/30/2021 [facility] DATE CREATED AUTHOR AUTHOR'S ORGANIZ ATION 09/19/2022 [facility] DATE CREATED AUTHOR AUTHOR'S ORGANIZ ATION 04/02/2024 [facility] DATE CREATED AUTHOR AUTHOR'S ORGANIZ ATION 04/06/2024 [facility] DATE CREATED AUTHOR AUTHOR'S ORGANIZ ATION 07/03/2024 [facility] DATE CREATED AUTHOR AUTHOR'S ORGANIZ ATION 07/30/2024 [facility] DATE CREATED AUTHOR AUTHOR'S ORGANIZ ATION 08/14/2024 [facility] REASON FOR VISIT (unrecogniz ed section and content) NAUSEAUS, HAVING PROBLEMS UR INATING, AND IT IS DARK Patient Care team informatio n (unrecognized section and content) Personnel Name: Doron Zuñiga MD Address: Address: [address] [place] [address] Personnel Name: Doron Zuñiga MD Address: Address: [address] [place] [id number] Personnel Name: Doron Zuñiga MD Address: Address: [address] [place] [id number] Personnel Name: Doron Zuñiga MD Address: Address: [address] [place] [id number] Personnel Name: Doron Zuñiag MD Address: Address: [address] [place] [address] Scheduled Active and Recently Administ ered Medications [...] (Anesthesia Volume Adjustment - Provider: Glendy Segura APRN-LOGISTICS ACCOUNT MANAGER) ceFAZolin (Ancef) 2 g in dextrose (iso) [...] BE BASED ON THE PRIMARY CLINICAL RECORDS. [employer] provides no warranty or guarantee of the accuracy or completeness of information in this document.
[2024-08-22 16:34] LABS: Glucometer 358 mg/dL (74-106)
--- OUTSIDE RECORDS SUMMARY | 2024-08-22 16:40 | XMS_ITS | CCD ---
Author Organization [facility] Care Team Providers Care Client Services Assistant Name Role Phone SAVANAH, GIACOMO H. Unavailable [...] Attending Unavailable Doron Zuñiga Primary Care Physician [phone] JAIME KAPLAN Attending Unavailable JAIME KAPLAN Admitting [...] Medication Allergies] Propensity to adverse reactions (disorder) [facility] Repository Medications Current Medications Medication [...] On Unit Fenofibrate Acti ve Gentamicin Sulfate (SENIOR LIVING) (1 source) Start: 10-11-2018 take 2 drop(s) [...] Start: 07-30-2024 take 1 capsule by mo [facility] once daily at mealtime 0.8 mg, [...] day(s), # 60 cap(s), Refills(s) 11, Pharmacy: [facility] #[id number], 180, cm, 03/30/24 9:46:00 EST, Height/Length Dosing, [...] 02-05-2023 Chronic Other aftercare (1 source) 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 3 mg/dL [facility] Chloride [Moles/Vol] 101 mmol/L 98 - 10 7 mmol/L [facility] CO2 [Moles/Vol] 27 mmol/L 21 - 32 mmol/L [facility] Creatinine [Mass/Vol] 1.03 mg/dL 0.50 - 1.30 mg/dL [facility] GFR/1.73 sq M.predicted among non-blacks MDRD (S/P/Bld) [Vol rate/Area] 88 mL/min/{1.73_m2} - PINF [facility] Comment on above: Calculations of jeanette mated GFR are performed using the 2020 CKD-EPI Study Refit equation without the race variable for the IDMS-Traceable creatinine methods. https://jasn.asnjournals.org/content//ASN.9268000 988 Glucose [Mass/Vol] 171 mg/dL High 74 - 99 mg/dL [facility] Interpretation and review of laboratory results Abnormal [facility] Potassium [Moles/Vol] 3.6 mmol/L 3.5 - 5.3 mmol/L [facility] Sodium [Moles/Vol] 138 mmol/L 136 - 145 mmol/L [facility] Urea nitrogen [Mass/Vol] 15 mg/dL 6 - 23 mg/dL [facility] Anion gap [Moles/Vol] 14 mmol/L Normal 10-20 [facility] Comment on above: Performed By: #### 5 8077-9 #### CHARISMA AVILES ([id number]) [facility] ([facility]) [address] [place] [address] Calcium [Mass/Vol] 8.9 mg/dL Normal 8.6-10.3 [facility] Comment on above: Performed By: #### 5 8077-9 #### CHARISMA AVILES ([id number]) [facility] ([facility]) [address] [place] [address] Chloride [Moles/Vol] 101 mmol/L Normal 98-107 [facility] Comment on above: Performed By: #### 5 8077-9 #### CHARISMA AVILES ([id number]) [facility] ([facility]) [address] [place] [address] CO2 [Moles/Vol] 27 mmol/L Normal 21-32 [facility] Comment on above: Performed By: #### 5 8077-9 #### CHARISMA AVILES ([id number]) [facility] ([facility]) [address] [place] [address] Creatinine [Mass/Vol] 1.03 mg/dL Normal 0.50-1.30 [facility] Comment on above: Performed By: #### 5 8077-9 #### CHARISMA AVILES ([id number]) [facility] ([facility]) [address] [place] [address] Glomerular filtration rate/1.73 sq M.predicted 88 mL/min/1.73m*2 Normal >60 [facility] Comment on above: Result Comment: Calc ulations of estimated GFR are performed using the 2020 CKD-EPI Study Refit equation without the race variable for the IDMS-Traceable creatinine methods. https://jasn.asnjournals.org/content//ASN.4968937 988 Performed By: #### 5 8077-9 #### CHARISMA AVILES ([id number]) [facility] ([facility]) [address] [place] [address] Glucose [Mass/Vol] 171 mg/dL High 74-99 [facility] Comment on above: Performed By: #### 5 8077-9 #### CHARISMA AVILES ([id number]) [facility] ([facility]) [address] [place] [address] Potassium [Moles/Vol] 3.6 mmol/L Normal 3.5-5.3 [facility] Comment on above: Performed By: #### 5 8077-9 #### CHARISMA AVILES ([id number]) [facility] ([facility]) [address] [place] [address] Sodium [Moles/Vol] 138 mmol/L Normal 136-145 [facility] Comment on above: Performed By: #### 5 8077-9 #### CHARISMA AVILES ([id number]) [facility] ([facility]) [address] [place] [address] Urea nitrogen [Mass/Vol] 15 mg/dL Normal 6-23 [facility] Comment on above: Performed By: #### 5 8077-9 #### CHARISMA AVILES ([id number]) [facility] ([facility]) [address] [place] [address] CBC panel Auto (Bld)on 07-30 Erythrocyte distribution width (RBC) [Ratio] 12.9 % 11.5 - 14.5 % [facility] Hematocrit (Bld) [Volume fraction] 40.6 % Low 41.0 - 52.0 % [facility] Hemoglobin (Bld) [Mass/Vol] 13.6 g/dL 13.5 - 17.5 g/dL [facility] Interpretation and review of laboratory results Abnormal [facility] MCH (RBC) [Entitic mass] 29.4 pg 26.0 - 34.0 pg [facility] MCHC (RBC) [Mass/Vol] 33.5 g/dL 32.0 - 36.0 g/dL [facility] MCV (RBC) [Entitic vol] 88 fL 80 - 100 fL [facility] Nucleated RBC/100 WBC (Bld) [Ratio] 0 % [facility] Platelets (Bld) [#/Vol] 211 10*3/uL [facility] RBC (Bld) [#/Vol] 4.62 10*6/uL [facility] WBC (Bld) [#/Vol] 9.5 10*3/uL [facility] Erythrocyte distribution width (RBC) [Ratio] 12.9 % Normal 11.5-14.5 [facility] Comment on above: Performed By: #### 5 8077-9 #### CHARISMA AVILES ([id number]) [facility] ([facility]) [address] [place] [address] Hematocrit (Bld) [Volume fraction] 40.6 % Low 41.0-52.0 [facility] Comment on above: Performed By: #### 5 8077-9 #### CHARISMA AVILES ([id number]) [facility] ([facility]) [address] [place] [address] Hemoglobin (Bld) [Mass/Vol] 13.6 g/dL Normal 13.5-17.5 [facility] Comment on above: Performed By: #### 5 8077-9 #### CHARISMA AVILES ([id number]) [facility] ([facility]) [address] [place] [address] MCH (RBC) [Entitic mass] 29.4 pg Normal 26.0-34.0 [facility] Comment on above: Performed By: #### 5 8077-9 #### CHARISMA AVILES ([id number]) [facility] ([facility]) [address] [place] [address] MCHC (RBC) [Mass/Vol] 33.5 g/dL Normal 32.0-36.0 [facility] Comment on above: Performed By: #### 5 8077-9 #### CHARISMA AVILES ([id number]) [facility] ([facility]) [address] [place] [address] MCV (RBC) [Entitic vol] 88 fL Normal 80-100 [facility] Comment on above: Performed By: #### 5 8077-9 #### CHARISMA AVILES ([id number]) [facility] ([facility]) [address] [place] [address] Nucleated RBC/100 WBC (Bld) [Ratio] 0.0 /100 WBCs Normal 0.0-0.0 [facility] Comment on above: Performed By: #### 5 8077-9 #### CHARISMA AVILES ([id number]) [facility] ([facility]) [address] [place] [address] Platelets (Bld) [#/Vol] 211 x10*3/uL Normal 150-450 [facility] Comment on above: Performed By: #### 5 8077-9 #### CHARISMA AVILES ([id number]) [facility] ([facility]) [address] [place] [address] RBC (Bld) [#/Vol] 4.62 x10*6/uL Normal 4.50-5.90 [facility] Comment on above: Performed By: #### 5 8077-9 #### CHARISMA AVILES ([id number]) [facility] ([facility]) [address] [place] [address] WBC (Bld) [#/Vol] 9.5 x10*3/uL Normal 4.4-11.3 [facility] Comment on above: Performed By: #### 5 8077-9 #### CHARISMA AVILES ([id number]) [facility] ([facility]) [address] [place] [id number] Basic metabolic 2000 panelon 07-29-2024 Anion gap [Moles/Vol] 18 mmol/L 10 - 20 mmol/L [facility] Calcium [Mass/Vol] 8.8 mg/dL 8.6 - 10. 3 mg/dL [facility] Chloride [Moles/Vol] 101 mmol/L 98 - 10 7 mmol/L [facility] CO2 [Moles/Vol] 22 mmol/L 21 - 32 mmol/L [facility] Creatinine [Mass/Vol] 1.09 mg/dL 0.50 - 1.30 mg/dL [facility] GFR/1.73 sq M.predicted among non-blacks MDRD (S/P/Bld) [Vol rate/Area] 82 mL/min/{1.73_m2} - PINF [facility] Comment on above: Calculations of jeanette mated GFR are performed using the 2020 CKD-EPI Study Refit equation without the race variable for the IDMS-Traceable creatinine methods. https://jasn.asnjournals.org/content//ASN.3305632 988 Glucose [Mass/Vol] 266 mg/dL High 74 - 99 mg/dL [facility] Interpretation and review of laboratory results Abnormal [facility] Potassium [Moles/Vol] 4.1 mmol/L 3.5 - 5.3 mmol/L [facility] Sodium [Moles/Vol] 137 mmol/L 136 - 145 mmol/L [facility] Urea nitrogen [Mass/Vol] 17 mg/dL 6 - 23 mg/dL [facility] Anion gap [Moles/Vol] 18 mmol/L Normal 10-20 [facility] Comment on above: Performed By: #### 5 8077-9 #### CHARISMA AVILES ([id number]) [facility] ([facility]) [address] [place] [id number] Calcium [Mass/Vol] 8.8 mg/dL Normal 8.6-10.3 [facility] Comment on above: Performed By: #### 5 8077-9 #### CHARISMA AVILES (74798) [facility] ([facility]) [address] [place] [address] Chloride [Moles/Vol] 101 mmol/L Normal 98-107 [facility] Comment on above: Performed By: #### 5 8077-9 #### CHARISMA AVILES (01052) [facility] ([facility]) [address] [place] [address] CO2 [Moles/Vol] 22 mmol/L Normal 21-32 [facility] Comment on above: Performed By: #### 5 8077-9 #### CHARISMA AVILES ([id number]) [facility] ([facility]) [address] [place] [address] Creatinine [Mass/Vol] 1.09 mg/dL Normal 0.50-1.30 [facility] Comment on above: Performed By: #### 5 8077-9 #### CHARISMA AVILES (78392) [facility] ([facility]) [address] [place] [address] Glomerular filtration rate/1.73 sq M.predicted 82 mL/min/1.73m*2 Normal >60 [facility] Comment on above: Result Comment: Calc ulations of estimated GFR are performed using the 2020 CKD-EPI Study Refit equation without the race variable for the IDMS-Traceable creatinine methods. https://jasn.asnjournals.org/content/early/ASN.8745671 988 Performed By: #### 5 8077-9 #### CHARISMA AVILES ([id number]) [facility] ([facility]) [address] [place] [address] Glucose [Mass/Vol] 266 mg/dL High 74-99 [facility] Comment on above: Performed By: #### 5 8077-9 #### CHARISMA AVILES ([id number]) [facility] ([facility]) [address] [place] [address] Potassium [Moles/Vol] 4.1 mmol/L Normal 3.5-5.3 [facility] Comment on above: Performed By: #### 5 8077-9 #### CHARISMA AVILES (24297) [facility] ([facility]) [address] [place] [address] Sodium [Moles/Vol] 137 mmol/L Normal 136-145 [facility] Comment on above: Performed By: #### 5 8077-9 #### CHARISMA AVILES (78084) [facility] ([facility]) [address] [place], [place] [id number] Urea nitrogen [Mass/Vol] 17 mg/dL Normal 6-23 [facility] Comment on above: Performed By: #### 5 8077-9 #### CHARISMA AVILES ([id number]) [facility] ([facility]) [address] [place] [address] CALCULI (STONE) ANALYSISon 0 - Appearance (Stone) See Note Normal [facility] Comment on above: Order Comment: OVER is reported when the result is greater than the clinically reportable range. Result Comment: Spec imen consists of numerous brown and parker calculi fragments. The total weight is 507 mg. Performed By: #### 5 8077-9 #### CHARISMA AVILES (50578) [facility] ([facility]) [address] [place] [address] Composition Nom (Stone) See Note Normal [facility] Comment on above: Order Comment: OVER [...] composition determined by FTIR analysis. Performed By: [facility] [address] [place] [address] Branch Office Administrator: Al Dumont MD, PhD CLIA Number: [id number] Performed By: #### 5 8077-9 #### CHARISMA AVILES (59735) [facility] ([facility]) [address] [place] [address] Specimen weight (Unsp spec) 507 mg Normal [facility] Comment on above: Order Comment: OVER is reported when the result is greater than the clinically reportable range. Performed By: #### 5 8077-9 #### CHARISMA AVILES (94411) [facility] ([facility]) [address] [place] [address] CBC panel Auto (Bld)on 07-29 Erythrocyte distribution width (RBC) [Ratio] 12.5 % 11.5 - 14.5 % [facility] Hematocrit (Bld) [Volume fraction] 40.5 % Low 41.0 - 52.0 % [facility] Hemoglobin (Bld) [Mass/Vol] 13.8 g/dL 13.5 - 17.5 g/dL [facility] Interpretation and review of laboratory results Abnormal [facility] MCH (RBC) [Entitic mass] 30.1 pg 26.0 - 34.0 pg [facility] MCHC (RBC) [Mass/Vol] 34.1 g/dL 32.0 - 36.0 g/dL [facility] MCV (RBC) [Entitic vol] 88 fL 80 - 100 fL [facility] Nucleated RBC/100 WBC (Bld) [Ratio] 0 % [facility] Platelets (Bld) [#/Vol] 168 10*3/uL [facility] RBC (Bld) [#/Vol] 4.59 10*6/uL [facility] WBC (Bld) [#/Vol] 9.4 10*3/uL [facility] Erythrocyte distribution width (RBC) [Ratio] 12.5 % Normal 11.5-14.5 [facility] Comment on above: Performed By: #### 5 8410-2 #### CHARISMA AVILES (08029) [facility] ([facility]) [address] [place] [address] Hematocrit (Bld) [Volume fraction] 40.5 % Low 41.0-52.0 [facility] Comment on above: Performed By: #### 5 8410-2 #### CHARISMA AVILES (62574) [facility] ([facility]) [address] [place] [address] Hemoglobin (Bld) [Mass/Vol] 13.8 g/dL Normal 13.5-17.5 [facility] Comment on above: Performed By: #### 5 8410-2 #### CHARISMA AVILES (50778) [facility] ([facility]) [address] [place] [address] MCH (RBC) [Entitic mass] 30.1 pg Normal 26.0-34.0 [facility] Comment on above: Performed By: #### 5 8410-2 #### CHARISMA AVILES (73894) [facility] ([facility]) [address] [place] [address] MCHC (RBC) [Mass/Vol] 34.1 g/dL Normal 32.0-36.0 [facility] Comment on above: Performed By: #### 5 8410-2 #### CHARISMA AVILES (90530) [facility] ([facility]) [address] [place] [address] MCV (RBC) [Entitic vol] 88 fL Normal 80-100 [facility] Comment on above: Performed By: #### 5 8410-2 #### CHARISMA AVILES (07813) [facility] ([facility]) [address] [place] [address] Nucleated RBC/100 WBC (Bld) [Ratio] 0.0 /100 WBCs Normal 0.0-0.0 [facility] Comment on above: Performed By: #### 5 8410-2 #### CHARISMA AVILES (80736) [facility] ([facility]) [address] [place] [address] Platelets (Bld) [#/Vol] 168 x10*3/uL Normal 150-450 [facility] Comment on above: Performed By: #### 5 8410-2 #### CHARISMA AVILES (24479) [facility] ([facility]) [address] [place] [address] RBC (Bld) [#/Vol] 4.59 x10*6/uL Normal 4.50-5.90 [facility] Comment on above: Performed By: #### 5 8410-2 #### CHARISMA AVILES (92409) [facility] ([facility]) [address] [place] [address] WBC (Bld) [#/Vol] 9.4 x10*3/uL Normal 4.4-11.3 [facility] Comment on above: Performed By: #### 5 8410-2 #### CHARISMA AVILSE (02486) [facility] ([facility]) [address] [place] [address] Coagulation tissue factor in ducedon 07-29-2024 PT Coag (PPP) [Time] 9.8 s Normal 9.8-12.4 [facility] Comment on above: Performed By: #### 5 902-2 #### CHARISMA AVILES ([id number]) [facility] ([facility]) [address] [place] [address] FL FLUORO IMAGES NO CHARGEon 07-29-2024 FL FLUORO IMAGES NO CHARGE These images are not reportable by radiology and will not be interpreted by Radiologists. Normal [facility] Glucose Test strip manual (B ld) [Mass/Vol]on 07-29-2024 Glucose [Mass/Vol] 246 mg/dL High 74 - 99 mg/dL [facility] Interpretation and review of laboratory results Abnormal [facility] Glucose [Mass/Vol] 246 mg/dL High 74-99 [facility] Comment on above: Performed By: #### 5 8077-9 #### CHARISMA AVILES (26773) [facility] ([facility]) [address] [place] [address] Glucose [Mass/Vol] 187 mg/dL High 74 - 99 mg/dL [facility] Interpretation and review of laboratory results Abnormal [facility] Glucose [Mass/Vol] 187 mg/dL High 74-99 [facility] Comment on above: Performed By: #### 2 341-6 #### CHARISMA AVILES (90668) [facility] ([facility]) [address] [place] [address] IR NEPHROURETERAL PLACEME NTon 07-29-2024 IR NEPHROURETERAL PLACEMENT Interpreted By: Radhames Romero, STUDY: IR NEPHROURETERAL PLACEMENT; 07/29/2024 12:14 pm INDICATION: Signs/Symptoms:KIDNEY STONE. COMPARISON: None. ACCESSION NUMBER(S): [id number] ORDERING CLINICIAN: SOFIE DURBIN TECHNIQUE: HEAD OF PRODUCT: Radhames Romero MD CONSENT: The patient was [...] and versed. Total intra-service sedation time from 6504-9394 hours (68 minutes). The physician was assisted [...] removed over the wire and a 5 Ghanaian coaxial dilator was placed over the wire. The inner dilator and wire were removed. A small amount of contrast was injected confirming location of the catheter. This demonstrates stones within the system, but no hydronephrosis. Through the catheter a 0.035 wire was advanced to the urinary bladder. The coaxial dilator was removed and a 5 Ghanaian end hole catheter ([employer]) was advanced over the wire with the [...] Radhames Romero 07/30/2024 12:28 PM Dictation workstation: [id number] [facility] PT Coag (PPP) [Time]on 07-29 INR Coag (PPP) [Relative time] 0.9 {INR} 0.9 - 1.1 [facility] Interpretation and review of laboratory results [facility] INR Coag (PPP) [Relative time] 0.9 Normal 0.9-1.1 [facility] Comment on above: Performed By: #### 5 902-2 #### CHARISMA AVILES ([id number]) [facility] ([facility]) [address] [place] [address] Protime-INRon 07-29-2024 PT Coag (PPP) [Time] 9.8 s [facility] US GUIDED ABSCESS FLUID MARCELLO ECTION DRAINAGEon 07-29-2024 US GUIDED ABSCESS FLUID COLLECTION DRAINAGE Interpreted By: Radhames Romero, STUDY: IR NEPHROURETERAL PLACEMENT; 07/29/2024 12:14 pm INDICATION: Signs/Symptoms:KIDNEY STONE. COMPARISON: None. ACCESSION NUMBER(S): [id number] ORDERING CLINICIAN: SOFIE DURBIN TECHNIQUE: HEAD OF PRODUCT: Radhames Romero MD CONSENT: The patient was [...] and versed. Total intra-service sedation time from 5729-6115 hours (68 minutes). The physician was assisted [...] removed over the wire and a 5 Ghanaian coaxial dilator was placed over the wire. The inner dilator and wire were removed. A small amount of contrast was injected confirming location of the catheter. This demonstrates stones within the system, but no hydronephrosis. Through the catheter a 0.035 wire was advanced to the urinary bladder. The coaxial dilator was removed and a 5 Ghanaian end hole catheter ([employer]) was advanced over the wire with the [...] Radhames Romero 07/30/2024 12:28 PM Dictation workstation: [id number] [facility] Comment on above: Order Comment: OVER is reported when the result is greater than the clinically reportable range. XR tomography Unspecified giacomo dy regionon 07-29-2024 These images are not reportable by radiology and will not be interpreted by Radiologists. IMAGING ECG 12 leadOrdered By: Geremias Orozco on 07-28-2024 Atrial Rate 72 BPM [facility] Work Phone: P [place] 42 degrees [facility] Work Phone: P Offset 186 ms [facility] Work Phone: P Onset 139 ms [facility] Work Phone: OR Interval 136 ms [facility] Work Phone: Q Onset 207 ms [facility] Work Phone: QRS Count 11 beats [facility] Work Phone: QRS Duration 108 ms [facility] Work Phone: QT Interval 410 ms [facility] Work Phone: QTC Calculation(Bazett) 448 ms [facility] Work Phone: QTC Fredericia 435 ms [facility] Work Phone: R [place] -31 degrees [facility] Work Phone: T [place] 64 degrees [facility] Work Phone: T Offset 412 ms [facility] Work Phone: Ventricular Rate 72 BPM [facility] Work Phone: [facility] Work Phone: ECG 12 leadon 07-28-2024 [...] Geremias Orozco ([id number]) on 07/28/2024 12:32:46 PM [facility] Work Phone: Bacteria identifiedon 2024 Bacteria identified Cx Nom (U) Test: Urine Culture Specimen Source: Clean Catch/Voided Specimen Type: Urine Specimen Date: 07/19/202450 Result Date: 07/20/[id number] Result Status: Final result Abnormal: No Resulting Lab: [facility] [id number] [place] [address] CULTURE Clinically insignificant growth based on current clinical standards. Normal [facility] Comment on above: Performed By: #### 6 30-4 #### MELCHOR Page ([id number]) [facility] ([facility]) [address] [place] [address] CBC panel Auto (Bld)on 07-19 Erythrocyte distribution width (RBC) [Ratio] 12.5 % 11.5 - 14.5 % [facility] Hematocrit (Bld) [Volume fraction] 46.1 % 41.0 - 52.0 % [facility] Hemoglobin (Bld) [Mass/Vol] 15.6 g/dL 13.5 - 17.5 g/dL [facility] Interpretation and review of laboratory results Normal [facility] MCH (RBC) [Entitic mass] 29.5 pg 26.0 - 34.0 pg [facility] MCHC (RBC) [Mass/Vol] 33.8 g/dL 32.0 - 36.0 g/dL [facility] MCV (RBC) [Entitic vol] 87 fL 80 - 100 fL [facility] Nucleated RBC/100 WBC (Bld) [Ratio] 0 % [facility] Platelets (Bld) [#/Vol] 241 10*3/uL [facility] RBC (Bld) [#/Vol] 5.29 10*6/uL [facility] WBC (Bld) [#/Vol] 5.5 10*3/uL [facility] Erythrocyte distribution width (RBC) [Ratio] 12.5 % Normal 11.5-14.5 [facility] Comment on above: Performed By: #### 5 8410-2 #### CHARISMA AVILES ([id number]) [facility] ([facility]) [address] [place] [address] Hematocrit (Bld) [Volume fraction] 46.1 % Normal 41.0-52.0 [facility] Comment on above: Performed By: #### 5 8410-2 #### CHARISMA AVILES (47034) [facility] ([facility]) [address] [place] [address] Hemoglobin (Bld) [Mass/Vol] 15.6 g/dL Normal 13.5-17.5 [facility] Comment on above: Performed By: #### 5 8410-2 #### CHARISMA AVILES ([id number]) [facility] ([facility]) [address] [place] [address] MCH (RBC) [Entitic mass] 29.5 pg Normal 26.0-34.0 [facility] Comment on above: Performed By: #### 5 8410-2 #### CHARISMA AVILES ([id number]) [facility] ([facility]) [address] [place] [address] MCHC (RBC) [Mass/Vol] 33.8 g/dL Normal 32.0-36.0 [facility] Comment on above: Performed By: #### 5 8410-2 #### CHARISMA AVILES ([id number]) [facility] ([facility]) [address] [place] [address] MCV (RBC) [Entitic vol] 87 fL Normal 80-100 [facility] Comment on above: Performed By: #### 5 8410-2 #### CHARISMA AVILES (15250) [facility] ([facility]) [address] [place] [address] Nucleated RBC/100 WBC (Bld) [Ratio] 0.0 /100 WBCs Normal 0.0-0.0 [facility] Comment on above: Performed By: #### 5 8410-2 #### CHARISMA AVILES (15105) [facility] ([facility]) [address] [place] [address] Platelets (Bld) [#/Vol] 241 x10*3/uL Normal 150-450 [facility] Comment on above: Performed By: #### 5 8410-2 #### CHARISMA AVILES ([id number]) [facility] ([facility]) [address] [place] [address] RBC (Bld) [#/Vol] 5.29 x10*6/uL Normal 4.50-5.90 [facility] Comment on above: Performed By: #### 5 8410-2 #### CHARISMA AVILES ([id number]) [facility] ([facility]) [address] [place] [address] WBC (Bld) [#/Vol] 5.5 x10*3/uL Normal 4.4-11.3 [facility] Comment on above: Performed By: #### 5 8410-2 #### CHARISMA AVILES (08352) [facility] ([facility]) [address] [place] [id number] Comprehensive metabolic 2000 panelon 07-19-2024 Albumin BCP dye [Mass/Vol] 4.7 g/dL 3.4 - 5.0 g/dL [facility] ALP [Catalytic activity/Vol] 59 U/L 33 - 120 U/L [facility] ALT With P-5'-P [Catalytic activity/Vol] 76 U/L High 10 - 52 U/L [facility] Comment on above: Patients treated wit h Sulfasalazine may generate falsely decreased results for ALT. Anion gap [Moles/Vol] 17 mmol/L 10 - 20 mmol/L [facility] AST With P-5'-P [Catalytic activity/Vol] 64 U/L High 9 - 39 U/L [facility] Bilirubin [Mass/Vol] 1.1 mg/dL 0.0 - 1 .2 mg/dL [facility] Calcium [Mass/Vol] 10.1 mg/dL 8.6 - 10. 3 mg/dL [facility] Chloride [Moles/Vol] 99 mmol/L 98 - 10 7 mmol/L [facility] CO2 [Moles/Vol] 25 mmol/L 21 - 32 mmol/L [facility] Creatinine [Mass/Vol] 0.88 mg/dL 0.50 - 1.30 mg/dL [facility] eGFR - PINF [facility] Comment on above: Calculations of jeanette mated GFR are performed using the 2020 CKD-EPI Study Refit equation without the race variable for the IDMS-Traceable creatinine methods. https://jasn.asnjournals.org/content//ASN.5059118 988 Glucose [Mass/Vol] 209 mg/dL High 74 - 99 mg/dL [facility] Interpretation and review of laboratory results Abnormal [facility] Potassium [Moles/Vol] 4.4 mmol/L 3.5 - 5.3 mmol/L [facility] Protein [Mass/Vol] 7.6 g/dL 6.4 - 8.2 g/dL Un [facility] Sodium [Moles/Vol] 137 mmol/L 136 - 145 mmol/L [facility] Urea nitrogen [Mass/Vol] 19 mg/dL 6 - 23 mg/dL [facility] Albumin BCP dye [Mass/Vol] 4.7 g/dL Normal 3.4-5.0 [facility] Comment on above: Performed By: #### 2 4323-8 #### CHARISMA AVILES ([id number]) [facility] ([facility]) [address] [place] [address] ALP [Catalytic activity/Vol] 59 U/L Normal 33-120 [facility] Comment on above: Performed By: #### 2 4323-8 #### CHARISMA AVILES ([id number]) [facility] ([facility]) [address] [place] [address] ALT With P-5'-P [Catalytic activity/Vol] 76 U/L High 10-52 [facility] Comment on above: Result Comment: Latricia ents treated with Sulfasalazine may generate falsely decreased results for ALT. Performed By: #### 2 4323-8 #### CHARISMA AVILES ([id number]) [facility] ([facility]) [address] [place] [address] Anion gap [Moles/Vol] 17 mmol/L Normal 10-20 [facility] Comment on above: Performed By: #### 2 4323-8 #### CHARISMA AVILES ([id number]) [facility] ([facility]) [address] [place] [address] AST With P-5'-P [Catalytic activity/Vol] 64 U/L High 9-39 [facility] Comment on above: Performed By: #### 2 4323-8 #### CHARISMA AVILES ([id number]) [facility] ([facility]) [address] [place] [address] Bilirubin [Mass/Vol] 1.1 mg/dL Normal 0.0-1.2 [facility] Comment on above: Performed By: #### 2 4323-8 #### CHARISMA AVILES ([id number]) [facility] ([facility]) [address] [place] [address] Calcium [Mass/Vol] 10.1 mg/dL Normal 8.6-10.3 [facility] Comment on above: Performed By: #### 2 4323-8 #### CHARISMA AVILES ([id number]) [facility] ([facility]) [address] [place] [address] Chloride [Moles/Vol] 99 mmol/L Normal 98-107 [facility] Comment on above: Performed By: #### 2 4323-8 #### CHARISMA AVILES (55111) [facility] ([facility]) [address] [place] [address] CO2 [Moles/Vol] 25 mmol/L Normal 21-32 [facility] Comment on above: Performed By: #### 2 4323-8 #### CHARISMA AVILES (00631) [facility] ([facility]) [address] [place] [address] Creatinine [Mass/Vol] 0.88 mg/dL Normal 0.50-1.30 [facility] Comment on above: Performed By: #### 2 4323-8 #### CHARISMA AVILES (47032) [facility] ([facility]) [address] [place] [address] GFR/1.73 sq M.predicted MDRD (S/P/Bld) [Vol rate/Area] mL/min/{1.73_m2} Normal >60 [facility] Comment on above: Result Comment: Calc ulations of estimated GFR are performed using the 2020 CKD-EPI Study Refit equation without the race variable for the IDMS-Traceable creatinine methods. https://jasn.asnjournals.org/content/early/ASN.8732577 988 Performed By: #### 2 4323-8 #### CHARISMA AVILES (30505) [facility] ([facility]) [address] [place] [address] Glucose [Mass/Vol] 209 mg/dL High 74-99 [facility] Comment on above: Performed By: #### 2 4323-8 #### CHARISMA AVILES (97566) [facility] ([facility]) [address] [place] [address] Potassium [Moles/Vol] 4.4 mmol/L Normal 3.5-5.3 [facility] Comment on above: Performed By: #### 2 4323-8 #### CHARISMA AVILES ([id number]) [facility] ([facility]) [address] [place] [address] Protein [Mass/Vol] 7.6 g/dL Normal 6.4-8.2 [facility] Comment on above: Performed By: #### 2 4323-8 #### CHARISMA AVILES (05930) [facility] ([facility]) [address] [place] [address] Sodium [Moles/Vol] 137 mmol/L Normal 136-145 [facility] Comment on above: Performed By: #### 2 4323-8 #### CHARISMA AVILES (54072) [facility] ([facility]) [address] [place] [address] Urea nitrogen [Mass/Vol] 19 mg/dL Normal 6-23 [facility] Comment on above: Performed By: #### 2 4323-8 #### CHARISMA AVILES (15116) [facility] ([facility]) [address] [place] [address] ECG 12-LEADon 07-19-2024 ECG 12-LEAD Ventricular Rate 72 Atrial Rate 72 P-R Interval 136 QRS Duration 108 Q-T Interval 410 QTC Calculation(Bazett) 448 P [place] 42 R [place] -31 T [place] 64 QRS Count 11 Q Onset 207 P Onset 139 P Offset 186 T Offset 412 QTC Fredericia 435 Diagnosis Normal sinus rhythm Left axis deviation Septal infarct , age undetermined Abnormal ECG When compared with ECG of 15-DEC-2020 13:21, Septal infarct is now Present Confirmed by Geremias Orozco ([id number]) on 07/28/2024 12:32:46 PM Normal [facility]3] HbA1c (Bld) [Mass fraction]o n 07-19-2024 Average glucose Estimated from glycated hemoglobin (Bld) [Mass/Vol] 197 mg/dL Normal Not Established [facility] Comment on above: Order Comment: Diagn osis of Diabetes-Adults Non-Diabetic: < or = 5.6% Increased risk for developing diabetes: 5.7-6.4% Diagnostic of diabetes: > or = 6.5% Performed By: #### 4 548-4 #### MELCHOR Page ([id number]) [facility] ([facility]) [address] [place] [address] Hemoglobin A1c/Hemoglobin.to napoleon 07-19-2024 HbA1c (Bld) [Mass fraction] 8.5 % High See comment [facility] Comment on above: Order Comment: Diagn osis of Diabetes-Adults Non-Diabetic: < or = 5.6% Increased risk for developing diabetes: 5.7-6.4% Diagnostic of diabetes: > or = 6.5% Performed By: #### 4 548-4 #### MELCHOR Page (89943) [facility] ([facility]) [address] [place] [address] Urinalysis complete W Reflex Culture panel (U)on 07-19-2024 Appearance (U) Clear Normal Clear [facility] Comment on above: Order Comment: OVER is reported when the result is greater than the clinically reportable range. Performed By: #### 5 8077-9 #### CHARISMA AVILES ([id number]) [facility] ([facility]) [address] [place] [address] Bilirubin (U) [Mass/Vol] Negative Normal NEGATIVE [facility] Comment on above: Order Comment: OVER is reported when the result is greater than the clinically reportable range. Performed By: #### 5 8077-9 #### CHARISMA AVILES (87304) [facility] ([facility]) [address] [place] [address] Color (U) Light-Yellow Normal Light-Yellow, Yellow, Dark-Yellow [facility] Comment on above: Order Comment: OVER is reported when the result is greater than the clinically reportable range. Performed By: #### 5 8077-9 #### CHARISMA AVILES (95908) [facility] ([facility]) [address] [place] [address] Glucose Auto test strip (U) [Mass/Vol] OVER (4+) Abnormal Normal [facility] Comment on above: Order Comment: OVER is reported when the result is greater than the clinically reportable range. Performed By: #### 5 8077-9 #### CHARISMA AVILES (12897) [facility] ([facility]) [address] [place] [address] Ketones (U) [Mass/Vol] Negative Normal NEGATIVE [facility] Comment on above: Order Comment: OVER is reported when the result is greater than the clinically reportable range. Performed By: #### 5 8077-9 #### CHARISMA AVILES (84683) [facility] ([facility]) [address] [place] [address] Leukocyte esterase Auto test strip Ql (U) 75 Azra/uL Abnormal NEGATIVE [facility] Comment on above: Order Comment: OVER is reported when the result is greater than the clinically reportable range. Performed By: #### 5 8077-9 #### CHARISMA AVILES (21108) [facility] ([facility]) [id number] [place] [address] Nitrite Auto test strip Ql (U) Negative Normal NEGATIVE [facility] Comment on above: Order Comment: OVER is reported when the result is greater than the clinically reportable range. Performed By: #### 5 8077-9 #### CHARISMA AVILES (02799) [facility] ([facility]) [address] [place] [address] pH (U) 6.0 [pH] Normal 5.0, 5.5, 6.0, 6.5, 7.0, 7.5, 8.0 [facility] Comment on above: Order Comment: OVER is reported when the result is greater than the clinically reportable range. Performed By: #### 5 8077-9 #### CHARISMA AVILES (90960) [facility] ([facility]) [address] [place] [address] Protein (U) [Mass/Vol] 30 (1+) Abnormal NEGATIVE, 10 (TRACE), 20 (TRACE) [facility] Comment on above: Order Comment: OVER is reported when the result is greater than the clinically reportable range. Performed By: #### 5 8077-9 #### CHARISMA AVILES (43529) [facility] ([facility]) [address] [place] [address] RBC (U) [#/Vol] 1.0 (3+) Abnormal NEGATIVE [facility] Comment on above: Order Comment: OVER is reported when the result is greater than the clinically reportable range. Performed By: #### 5 8077-9 #### CHARISMA AVILES (27335) [facility] ([facility]) [address] [place] [address] Specific gravity (U) [Rel density] 1.023 Normal 1.005-1.035 [facility] Comment on above: Order Comment: OVER is reported when the result is greater than the clinically reportable range. Performed By: #### 5 8077-9 #### CHARISMA AVILES ([id number]) [facility] ([facility]) [id number] [place] [address] Urobilinogen (U) [Mass/Vol] Normal Normal Normal [facility] Comment on above: Order Comment: OVER is reported when the result is greater than the clinically reportable range. Performed By: #### 5 8077-9 #### CHARISMA AVILES ([id number]) [facility] ([facility]) [id number] [place] [address] Urinalysis microscopic panel Auto Ql (U)on 07-19-2024 Epithelial cells.squamous Auto (Urine sed) [#/Area] 1-9 (SPARSE) Normal Reference range not established. [facility] Comment on above: Performed By: #### 5 3315-8 #### CHARISMA AVILES ([id number]) [facility] ([facility]) [address] [place] [address] Mucus Auto (Urine sed) [#/Area] FEW Normal Reference range not established. [facility] Comment on above: Performed By: #### 5 3315-8 #### CHARISMA AVILES ([id number]) [facility] ([facility]) [id number] [place] [address] RBC Auto (Urine sed) [#/Area] >20 Abnormal NONE, 1-2, 3-5 [facility] Comment on above: Performed By: #### 5 3315-8 #### CHARISMA AVILES ([id number]) [facility] ([facility]) [address] [place] [address] WBC Auto (Urine sed) [#/Area] 21-50 Abnormal 1-5, NONE [facility] Comment on above: Performed By: #### 5 3315-8 #### CHARISMA AVILES ([id number]) [facility] ([facility]) [address] [place] [address] Ambulatory Visit Summaryon 0 05-24-2024 Ambulatory Visit [...] POLY ISIDRO, Alex Cohen, SARIAH When: Where: [address] [place] [address] [place], [place] [id number]- Medications What How Much When Instructions Unchanged [...] including vitamins, herbs, eye drops, creams, and [id number] medicines. ??? Any problems you or family [...] of (more content not included)... Normal [facility] U[facility] Office/Clinic Noteon 05-24-2024 Urology Office/Clinic Note [...] to [facility] and that regard. Referral to [facility]/ urology where they have interventional radiologist would [...] stones we (more content not included)... Normal [facility] Comment on above: Result Comment: Elec tronically Signed By: Arleen Barahona P\.br\Date and Time Signed: 05/24/24 10:34 EST\.br\Electronically Co-Signed By: Alex PANG MD P\.br\Date and Time Co-Signed: 07/01/24 15:12 EST CHEMISTRYOrdered By: Patience Villarreal on 03-30-2024 HbA1c (Bld) [Mass fraction] 8.1 % High <=5.9% [facility] ChemAutoSS CHEMISTRYOrdered By: SYSTEM SYSTEM on 03-30-2024 [...] used for this result was chemiluminescence using [employer] Access Hybritech PSA reagent. [id number] 03-30-2024 HbA1c (Bld) [Mass fraction] 8.1 % High <=5.9 [facility] Comment on above: Performed By: #### 7 [id number] #### [facility] [address] [place] [address] PSA Totalon 03-30-2024 Prostate specific Ag [Mass/Vol] 1.2 ng/mL Normal 0.1-3.5 [facility] Comment on above: Result Comment: The concentration of PSA determined by different manufacturers can vary due to differences in assay methods and reagent specificity. Values obtained from different assay methods cannot be used interchangeably. The methodology used for this result was chemiluminescence using [employer] Access Hybritech PSA reagent. Performed By: #### 1 [id number] #### [facility] [address] [place] [address] CULTURE URINEon 09-15-2022 CULTURE URINE Isolate 1 [...] Trimethoprim/Sulfamet hoxazole <=20 S F Normal [facility] Comment on above: Performed By: #### L IPA, CMP, CK, HSTROPN #### [facility] [address] [address] [address] Frank Nugent CBC AUTO DIFFon 09-13-2022 BASO # 0.0 103/ul Normal 0.0-0.1 [facility] Comment on above: Performed By: #### C BC #### [facility] [address] [place], [place] [address] Dr. Frank Nugent Basophils/100 WBC (Bld) 0.2 % Normal 0.2-2.0 [facility] Comment on above: Performed By: #### C BC #### [facility] [address] [place], [place] [address] Dr. Frank Nugent EO # 0.0 103/ul Normal 0.0-0.7 [facility] Comment on above: Performed By: #### C BC #### [facility] [address] [place] [address] Dr. Frank Nugent Eosinophils/100 WBC (Bld) 0.1 % Critically low 0.9-7.0 [facility] Comment on above: Performed By: #### C BC #### [facility] [address] [place] [address] Dr. Frank Nugent Erythrocyte distribution width (RBC) [Ratio] 12.7 % Normal 11.0-15.0 [facility] Comment on above: Performed By: #### C BC #### [facility] [address] [place] [address] Dr. Frank Nugent Hematocrit (Bld) [Volume fraction] 41.3 % Critically low 42.0-54.0 [facility] Comment on above: Performed By: #### C BC #### [facility] [address] [place] [address] Dr. Frank Nugent Hemoglobin (Bld) [Mass/Vol] 14.0 g/dL Normal 14.0-18.0 [facility] Comment on above: Performed By: #### C BC #### [facility] [address] [place] [address] Dr. Frank Nugent IG # 0.04 10e3/ul Critically high 0.00-0.03 [facility] Comment on above: Performed By: #### C BC #### [facility] [address] [place] [address] Dr. Frank Nugent IG % 0.3 % Normal 0.0-0.5 [facility] Comment on above: Performed By: #### C BC #### [facility] [address] [place] [address] Dr. Frank Nugent LYMPH # 1.0 103/ul Critically low 1.2-3.8 [facility] Comment on above: Performed By: #### C BC #### [facility] [address] [place] [address] Dr. Frank Nugent Lymphocytes/100 WBC (Bld) 6.9 % Critically low 20.5-60.0 [facility] Comment on above: Performed By: #### C BC #### [facility] [address] [place] [address] Dr. Frank Nugent MANUAL DIFF REQ NO Normal [facility] Comment on above: Performed By: #### C BC #### [facility] [address] [place] [address] Dr. Frank Nugent MCH (RBC) [Entitic mass] 29.5 pg Normal 25.9-34.0 [facility] Comment on above: Performed By: #### C BC #### [facility] [address] [place] [address] Dr. Frank Nugent MCHC (RBC) [Mass/Vol] 33.9 g/dL Normal 29.9-35.2 [facility] Comment on above: Performed By: #### C BC #### [facility] [address] [place] [address] Dr. Frank Nugent MCV (RBC) [Entitic vol] 87.1 fL Normal 80.0-94.0 [facility] Comment on above: Performed By: #### C BC #### [facility] [address] [place] [address] Dr. Frank Nugent MONO # 1.3 103/ul Critically high 0.3-0.8 [facility] Comment on above: Performed By: #### C BC #### [facility] [address] [place] [address] Dr. Frank Nugent Monocytes/100 WBC (Bld) 9.0 % Normal 1.7-12.0 [facility] Comment on above: Performed By: #### C BC #### [facility] [address] [place] [address] Dr. Frank Nugent NEUT # 12.2 103/ul Critically high 1.4-6.5 [facility] Comment on above: Performed By: #### C BC #### [facility] [address] [place] [address] Dr. Frank Nugent Neutrophils/100 WBC (Bld) 83.5 % Critically high 43.0-75.0 [facility] Comment on above: Performed By: #### C BC #### [facility] [address] [address] [address] Frank Nugent Platelet mean volume (Bld) [Entitic vol] 11.5 fL Normal 9.5-13.5 [facility] Comment on above: Performed By: #### C BC #### [facility] [address] [address] [address] Frank Nugent PLT 216 103/ul Normal 150-450 [facility] Comment on above: Performed By: #### C BC #### [facility] [address] [place] [address] Dr. Frank Nugent RBC 4.74 106/ul Normal 4.70-6.10 [facility] Comment on above: Performed By: #### C BC #### [facility] [address] [place] [address] Dr. Frank Nugent WBC 14.6 103/ul Critically high 4.0-11.0 [facility] Comment on above: Performed By: #### C BC #### [facility] [address] [place] [address] Dr. Frank Nugent CPKon 09-13-2022 CK [Catalytic activity/Vol] 260 U/L Normal 39-308 [facility] Comment on above: Performed By: #### L IPA, CMP, CK, HSTROPN #### [facility] [address] [place] [address] Dr. Frank Nugent CULTURE BLOODon 09-13-2022 Microscopic examination of blood, culture Culture Observations: NO GROWTH AT 5 DAYS. Normal [facility] Comment on above: Performed By: #### L IPA, CMP, CK, HSTROPN #### [facility] [address] [place] [address] Dr. Frank Nugent Microscopic examination of blood, culture Culture Observations: NO GROWTH AT 5 DAYS. Normal [facility] Comment on above: Performed By: #### L IPA, CMP, CK, HSTROPN #### [facility] [address] [place] [address] Dr. Frank Nugent Covid-19 PCR (CVDTB)on SARS-CoV-2 (COVID-19) RNA JABIER+probe Ql (Unsp spec) Not detected Normal NOT DETECTED [facility] Comment on above: Result Comment: This test is not yet approved or cleared by the [place] FDA. When there are no FDA-approved or cleared tests available, and other criteria are met, FDA can make tests available under an emergency access mechanism called an Emergency Use Authorization (EUA). The EUA for this test is supported by the International First Officer of Health and Human Service's (HHS's) declaration [...] #### L IPA, CMP, CK, HSTROPN #### [facility] [address] [place] [address] Dr. Frank Nugent ER URINE PROFILEon 3 Bilirubin Ql (U) Negative Normal NEGATIVE [facility] Comment on above: Performed By: #### L IPA, CMP, CK, HSTROPN #### [facility] [address] [place] [address] Dr. Frank Nugent Clarity (U) CLEAR Normal CLEAR [facility] Comment on above: Performed By: #### L IPA, CMP, CK, HSTROPN #### [facility] [address] [place] [address] Dr. Frank Nugent Color (U) YELLOW Normal YELLOW [facility] Comment on above: Performed By: #### L IPA, CMP, CK, HSTROPN #### [facility] [address] [place] [address] Dr. Frank Nugent ERUPALOMA A micrscopic examination will be performed if indicated. Normal [facility] Comment on above: Performed By: #### L IPA, CMP, CK, HSTROPN #### [facility] [address] [address] [address] Frank Nugent Glucose Ql (U) 250 mg/dl Abnormal NEGATIVE [facility] Comment on above: Performed By: #### L IPA, CMP, CK, HSTROPN #### [facility] [address] [address] [address] Frank Nugent Hemoglobin Ql (U) SMALL Abnormal NEGATIVE [facility] Comment on above: Performed By: #### L IPA, CMP, CK, HSTROPN #### [facility] [address] [address] [address] Frank Nugent Ketones Ql (U) Negative Normal NEGATIVE [facility] Comment on above: Performed By: #### L IPA, CMP, CK, HSTROPN #### [facility] [address] [address] [address] Frank Nugent LEUKOCYTES TRACE Abnormal NEGATIVE [facility] Comment on above: Performed By: #### L IPA, CMP, CK, HSTROPN #### [facility] [address] [address] [address] Frank Nugent Nitrite Ql (U) Negative Normal NEGATIVE [facility] Comment on above: Performed By: #### L IPA, CMP, CK, HSTROPN #### [facility] [address] [address] [address] Frank Nugent pH (U) 5.5 [pH] Normal 5-9 [facility] Comment on above: Performed By: #### L IPA, CMP, CK, HSTROPN #### [facility] [address] [address] [address] Frank Nugent SPEC GRAVITY 1.020 Normal 1.005-<=1.025 [facility] Comment on above: Performed By: #### L IPA, CMP, CK, HSTROPN #### [facility] [address] [address] [address] Frank Nugent UA PROTEIN TRACE Normal NEGATIVE/ TRACE [facility] Comment on above: Performed By: #### L IPA, CMP, CK, HSTROPN #### [facility] [address] [place] [address] Dr. Frank Nugent UR MICRO IND INDICATED Normal [facility] Comment on above: Performed By: #### L IPA, CMP, CK, HSTROPN #### [facility] [address] [place] [address] Dr. Frank Nugent Urobilinogen Qn (U) 0.2 {Moni'U}/dL Normal 0.2 - 1. 0 [facility] Comment on above: Performed By: #### L IPA, CMP, CK, HSTROPN #### [facility] [address] [place] [address] Dr. Frank Nugent LACTATE/LACTIC ACIDon 2022 Lactate [Moles/Vol] 2.1 mmol/L Critically high 0.4-2.0 [facility] Comment on above: Performed By: #### L ACT #### [facility] [address] [place] [address] Dr. Frank Nugent LIPASEon 09-13-2022 Lipase [Catalytic activity/Vol] 116.0 U/L Normal 73.0-393.0 [facility] Comment on above: Performed By: #### L IPA, CMP, CK, HSTROPN #### [facility] [address] [place] [address] Dr. Frank Nugent PROF 14(COMP METB)on 023 Albumin [Mass/Vol] 4.0 g/dL Normal 3.4-5.0 [facility] Comment on above: Performed By: #### L IPA, CMP, CK, HSTROPN #### [facility] [address] [place] [address] Dr. Frank Nugent Albumin/Globulin [Mass ratio] 1.0 {ratio} Normal [facility] Comment on above: Performed By: #### L IPA, CMP, CK, HSTROPN #### [facility] [address] [place] [address] Dr. Frank Nugent ALP [Catalytic activity/Vol] 70 U/L Normal 46-116 [facility] Comment on above: Performed By: #### L IPA, CMP, CK, HSTROPN #### [facility] [address] [place] [address] Dr. Frank Nugent ALT [Catalytic activity/Vol] 55 U/L Normal 16-63 [facility] Comment on above: Performed By: #### L IPA, CMP, CK, HSTROPN #### [facility] [address] [address] [address] Frank Nugent Anion gap [Moles/Vol] 14.0 mmol/L Normal [facility] Comment on above: Performed By: #### L IPA, CMP, CK, HSTROPN #### [facility] [address] [place] [address] Dr. Frank Nugent AST [Catalytic activity/Vol] 28 U/L Normal 15-37 [facility] Comment on above: Performed By: #### L IPA, CMP, CK, HSTROPN #### [facility] [address] [place] [address] Dr. Frank Nugent Bilirubin [Mass/Vol] 2.1 mg/dL Critically high 0.2-1.0 [facility] Comment on above: Performed By: #### L IPA, CMP, CK, HSTROPN #### [facility] [address] [place] [address] Dr. Frank Nugent Calcium [Mass/Vol] 9.3 mg/dL Normal 8.5-10.1 [facility] Comment on above: Performed By: #### L IPA, CMP, CK, HSTROPN #### [facility] [address] [place] [address] Dr. Frank Nugent Chloride [Moles/Vol] 100 mmol/L Normal 98-107 [facility] Comment on above: Performed By: #### L IPA, CMP, CK, HSTROPN #### [facility] [address] [place] [address] Dr. Frank Nugent CO2 [Moles/Vol] 24.7 mmol/L Normal 21.0-32.0 [facility] Comment on above: Performed By: #### L IPA, CMP, CK, HSTROPN #### [facility] [address] [address] [address] Frank Nugent Creatinine [Mass/Vol] 1.31 mg/dL Critically high 0.70-1.30 [facility] Comment on above: Performed By: #### L IPA, CMP, CK, HSTROPN #### [facility] [address] [place] [address] Dr. Frank Nugent EGFR-AF SALVADOREAN >60 Normal >=60 [facility] Comment on above: Performed By: #### L IPA, CMP, CK, HSTROPN #### [facility] [address] [place] [address] Dr. Frank Nugent EGFR-NON AF SALVADOREAN 58 mL/min/1.73m2 Critically low >=60 [facility] Comment on above: Performed By: #### L IPA, CMP, CK, HSTROPN #### [facility] [address] [place] [address] Dr. Frank Nugent Globulin (S) [Mass/Vol] 4.0 g/dL Normal [facility] Comment on above: Performed By: #### L IPA, CMP, CK, HSTROPN #### [facility] [address] [place] [address] Dr. Frank Nugent Glucose [Mass/Vol] 244 mg/dL Critically high 74-106 T [facility] Comment on above: Performed By: #### L IPA, CMP, CK, HSTROPN #### [facility] [address] [place] [address] Dr. Frank Nugent Potassium [Moles/Vol] 3.7 mmol/L Normal 3.5-5.1 [facility] Comment on above: Performed By: #### L IPA, CMP, CK, HSTROPN #### [facility] [address] [place] [address] Dr. Frank Nugent Protein [Mass/Vol] 8.0 g/dL Normal 6.4-8.2 [facility] Comment on above: Performed By: #### L IPA, CMP, CK, HSTROPN #### [facility] [address] [address] [address] Frank Nugent Sodium [Moles/Vol] 135 mmol/L Critically low 136-145 [facility] Comment on above: Performed By: #### L IPA, CMP, CK, HSTROPN #### [facility] [address] [address] [address] Frank Nugent Urea nitrogen [Mass/Vol] 19.0 mg/dL Critically high 7.0-18.0 [facility] Comment on above: Performed By: #### L IPA, CMP, CK, HSTROPN #### [facility] [address] [place] [address] Dr. Frank Nugent Urea nitrogen/Creatinine [Mass ratio] 14.5 mg/mg Normal [facility] Comment on above: Performed By: #### L IPA, CMP, CK, HSTROPN #### [facility] [address] [place] [address] Dr. Frank Nugent PROTIMEon 09-13-2022 INR Coag (PPP) [Relative time] 0.97 {INR} Normal [facility] Comment on above: Performed By: #### L IPA, CMP, CK, HSTROPN #### [facility] [address] [place] [address] Dr. Frank Nugent INR GUIDELINES SEE BELOW Normal [facility] Comment on above: Result Comment: GHASSAN RED INR: 2.0 - 3.0 CONDITIONS NOT LISTED BELOW 2.5 - 3.5 FOR PROSTHETIC HEART VALVE REPLACEMENT 2.5 - 3.5 RECURRENT THROMBOSIS Performed By: #### L IPA, CMP, CK, HSTROPN #### [facility] [address] [place] [address] Dr. Frank Nugent PT Coag (PPP) [Time] 10.3 s Normal 9.0-11.6 [facility] Comment on above: Performed By: #### L IPA, CMP, CK, HSTROPN #### [facility] [address] [place] [address] Dr. Frank Nugent SYMPTOMATIC COVID-19 ANTIGEN on 09-13-2022 EUA Statement SEE BELOW Normal [facility] Comment on above: Result Comment: [...] #### L IPA, CMP, CK, HSTROPN #### [facility] [address] [place] [address] Dr. Frank Nugent SARS-CoV-2 (COVID-19) RNA JABIER+probe Ql (Unsp spec) Negative Normal NEGATIVE [facility] Comment on above: Performed By: #### L IPA, CMP, CK, HSTROPN #### [facility] [address] [place] [address] Dr. Frank Nugent TROPONIN, HIGH SENSITIVITYon 09-13-2022 HSTROP 5.4 pg/mL Normal 4.0-76.1 [facility] Comment on above: Result Comment: CUT- OFF POINTS HAVE BEEN ESTABLISHED BASED ON THE FOURTH UNIVERSAL DEFINITIONS OF MYOCARDIAL INFARCTION. THE UPPER REFERENCE LIMIT (URL) OF TROPONIN, DEFINED THE 99TH PERCENTILE OF cTnI DISTRIBUTION IN A REFERENCE POPULATION, HAS BEEN CONFIRMED THE DECISION THRESHOLD FOR CO DIAGNOSIS. Performed By: #### L IPA, CMP, CK, HSTROPN #### [facility] [address] [place] [address] Dr. Frank Nugent URINE MICROSCOPIC ONLYon BACTERIA SMALL Abnormal NONE SEEN [facility] Comment on above: Performed By: #### L IPA, CMP, CK, HSTROPN #### [facility] [address] [address] [address] Frank Nugent Bacteria identified Cx Nom (U) INDICATED Normal [facility] Comment on above: Performed By: #### L IPA, CMP, CK, HSTROPN #### [facility] [address] [address] [address] Frank Nugent CAST NONE SEEN Normal NONE SEEN [facility] Comment on above: Performed By: #### L IPA, CMP, CK, HSTROPN #### [facility] [address] [address] [address] Frank Nugent Crystals LM Nom (Urine sed) NONE SEEN Normal NONE SEEN [facility] Comment on above: Performed By: #### L IPA, CMP, CK, HSTROPN #### [facility] [address] [place] [address] Dr. Frank Nugent Epithelial cells LM Ql (Urine sed) FEW Abnormal NONE SEEN /RARE [facility] Comment on above: Performed By: #### L IPA, CMP, CK, HSTROPN #### [facility] [address] [place] [address] Dr. Frank Nugent MUCOUS NONE SEEN Normal NONE SEEN [facility] Comment on above: Performed By: #### L IPA, CMP, CK, HSTROPN #### [facility] [address] [place] [address] Dr. Frank Nugent RBC 2-5 Abnormal 0-2 [facility] Comment on above: Performed By: #### L IPA, CMP, CK, HSTROPN #### [facility] [address] [place] [address] Dr. Frank Nugent WBC 5-10 Abnormal NONE SEEN [facility] Comment on above: Performed By: #### L IPA, CMP, CK, HSTROPN #### [facility] [address] [place] [address] Dr. Frank Nugent XR CHEST 1 Von [...] YURY FERNANDEZ Date: 2022-09-13 13:36 Normal [facility] INSULINon 08-12-2022 Insulin 73.3 uIU/mL Critically high 2.6-24.9 [facility] Comment on above: Performed By: #### L IPA, CMP, CK, HSTROPN #### [facility] [address] [place] [address] Dr. Frank Nugent BNPon 08-10-2022 Natriuretic peptide B (Bld) [Mass/Vol] 48.0 pg/mL Normal <=900.0 [facility] Comment on above: Performed By: #### L IPA, CMP, CK, HSTROPN #### [facility] [address] [place] [address] Dr. Frank Nugent CBC AUTO DIFFon 08-10-2022 BASO # 0.0 103/ul Normal 0.0-0.1 [facility] Comment on above: Performed By: #### C BC #### [facility] [address] [place] [address] Dr. Frank Nugent Basophils/100 WBC (Bld) 0.3 % Normal 0.2-2.0 [facility] Comment on above: Performed By: #### C BC #### [facility] [address] [place] [address] Dr. Frank Nugent EO # 0.2 103/ul Normal 0.0-0.7 [facility] Comment on above: Performed By: #### C BC #### [facility] [address] [place] [address] Dr. Frank Nugent Eosinophils/100 WBC (Bld) 4.9 % Normal 0.9-7.0 [facility] Comment on above: Performed By: #### C BC #### [facility] [address] [place] [address] Dr. Frank Nugent Erythrocyte distribution width (RBC) [Ratio] 12.8 % Normal 11.0-15.0 [facility] Comment on above: Performed By: #### C BC #### [facility] [address] [place] [address] Dr. Frank Nugent Hematocrit (Bld) [Volume fraction] 43.8 % Normal 42.0-54.0 [facility] Comment on above: Performed By: #### C BC #### [facility] [address] [place] [address] Dr. Frank Nugent Hemoglobin (Bld) [Mass/Vol] 15.4 g/dL Normal 14.0-18.0 [facility] Comment on above: Performed By: #### C BC #### [facility] [address] [place] [address] Dr. Frank Nugent IG # 0.00 10e3/ul Normal 0.00-0.03 [facility] Comment on above: Performed By: #### C BC #### [facility] [address] [place] [address] Dr. Frank Nugent IG % 0.0 % Normal 0.0-0.5 [facility] Comment on above: Performed By: #### C BC #### [facility] [address] [place] [address] Dr. Frank Nugent LYMPH # 0.8 103/ul Critically low 1.2-3.8 [facility] Comment on above: Performed By: #### C BC #### [facility] [address] [place] [address] Dr. Frank Nugent Lymphocytes/100 WBC (Bld) 23.9 % Normal 20.5-60.0 [facility] Comment on above: Performed By: #### C BC #### [facility] [address] [place] [address] Dr. Frank Nugent MANUAL DIFF REQ NO Normal [facility] Comment on above: Performed By: #### C BC #### [facility] [address] [address] [address] Frank Nugent MCH (RBC) [Entitic mass] 30.0 pg Normal 25.9-34.0 [facility] Comment on above: Performed By: #### C BC #### [facility] [address] [address] [address] Frank Nugent MCHC (RBC) [Mass/Vol] 35.2 g/dL Normal 29.9-35.2 [facility] Comment on above: Performed By: #### C BC #### [facility] [address] [place] [address] Dr. Frank Nugent MCV (RBC) [Entitic vol] 85.2 fL Normal 80.0-94.0 [facility] Comment on above: Performed By: #### C BC #### [facility] [address] [place] [address] Dr. Frank Nugent MONO # 0.4 103/ul Normal 0.3-0.8 [facility] Comment on above: Performed By: #### C BC #### [facility] [address] [place] [address] Dr. Frank Nugent Monocytes/100 WBC (Bld) 12.8 % Critically high 1.7-12.0 [facility] Comment on above: Performed By: #### C BC #### [facility] [address] [place] [address] Dr. Frank Nugent NEUT # 1.9 103/ul Normal 1.4-6.5 [facility] Comment on above: Performed By: #### C BC #### [facility] [address] [place] [address] Dr. Frank Nugent Neutrophils/100 WBC (Bld) 58.1 % Normal 43.0-75.0 [facility] Comment on above: Performed By: #### C BC #### [facility] [address] [place] [address] Dr. Frank Nugent Platelet mean volume (Bld) [Entitic vol] 11.3 fL Normal 9.5-13.5 [facility] Comment on above: Performed By: #### C BC #### [facility] [address] [address] [address] Frank Nugent PLT 224 103/ul Normal 150-450 [facility] Comment on above: Performed By: #### C BC #### [facility] [address] [place] [address] Dr. Frank Nugent RBC 5.14 106/ul Normal 4.70-6.10 [facility] Comment on above: Performed By: #### C BC #### [facility] [address] [place] [address] Dr. Frank Nugent WBC 3.3 103/ul Critically low 4.0-11.0 [facility] Comment on above: Performed By: #### C BC #### [facility] [address] [place] [address] Dr. Frank Nugent FREE THYROXINE INDEX T7on FTI 2.63 Normal 1.30-4.50 [facility] Comment on above: Performed By: #### L IPA, CMP, CK, HSTROPN #### [facility] [address] [place] [address] Dr. Frank Nugent T3U 35.0 % Normal 33.0-40.0 [facility] Comment on above: Performed By: #### L IPA, CMP, CK, HSTROPN #### [facility] [address] [place] [address] Dr. Frank Nugent T4 [Mass/Vol] 7.50 ug/dL Normal 4.50-12.10 [facility] Comment on above: Performed By: #### L IPA, CMP, CK, HSTROPN #### [facility] [address] [place] [address] Dr. Frank Nugent GLYCOHEMOGLOBIN A1Con 2022 ADA RECOMMENDATION SEE BELOW Normal [facility] Comment on above: Result Comment: ADA RECOMMENDED LIMIT 4.0 - 6.0 ADA THERAPEUTIC TARGET < 7.0 ACTION SUGGESTED > 7.0 Performed By: #### A 1C #### [facility] [address] [address] [address] Frank Nugent Glucose [Mass/Vol] 169 mg/dL Normal [facility] Comment on above: Performed By: #### A 1C #### [facility] [address] [address] [address] Frank Nugent HbA1c (Bld) [Mass fraction] 7.5 % Critically high 4.5-6.2 [facility] Comment on above: Performed By: #### A 1C #### [facility] [address] [address] [address] Frank Nugent LIPID PROFILEon 08-10-2022 CHOL-HDL RATIO NORM SEE BELOW Normal [facility] Comment on above: Result Comment: 3.3 - 4.4 LOW RISK 4.4 - 7.1 AVERAGE RISK 7.1 - 11.0 MODERATE RISK >11.0 HIGH RISK Performed By: #### L IPA, CMP, CK, HSTROPN #### [facility] [address] [address] [address] Frank Nugent Cholesterol [Mass/Vol] 183 mg/dL Normal <=200 [facility] Comment on above: Performed By: #### L IPA, CMP, CK, HSTROPN #### [facility] [address] [address] [address] Frank Nugent Cholesterol in HDL [Mass/Vol] 29 mg/dL Critically low 40-60 [facility] Comment on above: Performed By: #### L IPA, CMP, CK, HSTROPN #### [facility] [address] [address] [address] Frank Nugent Cholesterol in LDL [Mass/Vol] 83.2 mg/dL Normal [facility] Comment on above: Performed By: #### L IPA, CMP, CK, HSTROPN #### [facility] [address] [address] [address] Frank Nugent Cholesterol.total/Ch olesterol in HDL [Mass ratio] 6.3 {ratio} Normal [facility] Comment on above: Performed By: #### L IPA, CMP, CK, HSTROPN #### [facility] [address] [address] [address] Frank Nugent HDL NORMAL > or = 60 mg/dl - LO W CARDIOVASCULAR RISK <40 mg/dl - HIGH CARDIOVASCULAR RISK Normal [facility] Comment on above: Performed By: #### L IPA, CMP, CK, HSTROPN #### [facility] [address] [address] [address] Frank Nugent LDL CALC NORMAL SEE BELOW Normal [facility] Comment on above: Result Comment: <100 mg/dl OPTIMAL 100 - 129 mg/dl NEAR OR ABOVE OPTIMAL 130 - 159 mg/dl BORDERLINE HIGH 160 - 189 mg/dl HIGH >190 mg/dl VERY HIGH Performed By: #### L IPA, CMP, CK, HSTROPN #### [facility] [address] [address] [address] Frank Nugent Triglyceride [Mass/Vol] 354 mg/dL Critically high <=150 [facility] Comment on above: Performed By: #### L IPA, CMP, CK, HSTROPN #### [facility] [address] [address] [address] Frank Nugent VLDL CALC 70.8 mg/dL Normal [facility] Comment on above: Performed By: #### L IPA, CMP, CK, HSTROPN #### [facility] [address] [address] [address] Frank Nugent PROF 14(COMP METB)on 023 Albumin [Mass/Vol] 4.4 g/dL Normal 3.4-5.0 [facility] Comment on above: Performed By: #### L IPA, CMP, CK, HSTROPN #### [facility] [address] [address] [address] Frank Nugent Albumin/Globulin [Mass ratio] 1.2 {ratio} Normal [facility] Comment on above: Performed By: #### L IPA, CMP, CK, HSTROPN #### [facility] [address] [address] [address] Frank Nugent ALP [Catalytic activity/Vol] 81 U/L Normal 46-116 [facility] Comment on above: Performed By: #### L IPA, CMP, CK, HSTROPN #### [facility] [address] [address] [address] Frank Nugent ALT [Catalytic activity/Vol] 102 U/L Critically high 16-63 [facility] Comment on above: Performed By: #### L IPA, CMP, CK, HSTROPN #### [facility] [address] [address] [address] Frank Nugent Anion gap [Moles/Vol] 14.6 mmol/L Normal [facility] Comment on above: Performed By: #### L IPA, CMP, CK, HSTROPN #### [facility] [address] [place] [address] Dr. Frank Nugent AST [Catalytic activity/Vol] 55 U/L Critically high 15-37 [facility] Comment on above: Performed By: #### L IPA, CMP, CK, HSTROPN #### [facility] [address] [address] [address] Frank Nugent Bilirubin [Mass/Vol] 1.0 mg/dL Normal 0.2-1.0 [facility] Comment on above: Performed By: #### L IPA, CMP, CK, HSTROPN #### [facility] [address] [place] [address] Dr. Frank Nugent Calcium [Mass/Vol] 9.5 mg/dL Normal 8.5-10.1 [facility] Comment on above: Performed By: #### L IPA, CMP, CK, HSTROPN #### [facility] [address] [place] [address] Dr. Frank Nugent Chloride [Moles/Vol] 103 mmol/L Normal 98-107 [facility] Comment on above: Performed By: #### L IPA, CMP, CK, HSTROPN #### [facility] [address] [place] [address] Dr. Frank Nugent CO2 [Moles/Vol] 23.4 mmol/L Normal 21.0-32.0 [facility] Comment on above: Performed By: #### L IPA, CMP, CK, HSTROPN #### [facility] [address] [address] [address] Frank Nugent Creatinine [Mass/Vol] 0.88 mg/dL Normal 0.70-1.30 [facility] Comment on above: Performed By: #### L IPA, CMP, CK, HSTROPN #### [facility] [address] [address] [address] Frank Nugent EGFR-AF SALVADOREAN >60 Normal >=60 [facility] Comment on above: Performed By: #### L IPA, CMP, CK, HSTROPN #### [facility] [address] [place] [address] Dr. Frank Nugent EGFR-NON AF SALVADOREAN >60 Normal >=60 [facility] Comment on above: Performed By: #### L IPA, CMP, CK, HSTROPN #### [facility] [address] [place] [address] Dr. Frank Nugent Globulin (S) [Mass/Vol] 3.6 g/dL Normal [facility] Comment on above: Performed By: #### L IPA, CMP, CK, HSTROPN #### [facility] [address] [place] [address] Dr. Frank Nugent Glucose [Mass/Vol] 164 mg/dL Critically high 74-106 T [facility] Comment on above: Performed By: #### L IPA, CMP, CK, HSTROPN #### [facility] [address] [address] [address] Frank Nugent Potassium [Moles/Vol] 4.0 mmol/L Normal 3.5-5.1 [facility] Comment on above: Performed By: #### L IPA, CMP, CK, HSTROPN #### [facility] [address] [place] [address] Dr. Frank Nugent Protein [Mass/Vol] 8.0 g/dL Normal 6.4-8.2 [facility] Comment on above: Performed By: #### L IPA, CMP, CK, HSTROPN #### [facility] [address] [place], [place] [id number] Dr. Frank Nugent Sodium [Moles/Vol] 137 mmol/L Normal 136-145 [facility] Comment on above: Performed By: #### L IPA, CMP, CK, HSTROPN #### [facility] [address] [place] [address] Dr. Frank Nugent Urea nitrogen [Mass/Vol] 16.0 mg/dL Normal 7.0-18.0 [facility] Comment on above: Performed By: #### L IPA, CMP, CK, HSTROPN #### [facility] [address] [place] [address] Dr. Frank Nugent Urea nitrogen/Creatinine [Mass ratio] 18.2 mg/mg Normal [facility] Comment on above: Performed By: #### L IPA, CMP, CK, HSTROPN #### [facility] [address] [place] [address] Dr. Farnk Nugent TSHon 08-10-2022 TSH 0.879 uIU/mL Normal 0.358-3.740 [facility] Comment on above: Performed By: #### L IPA, CMP, CK, HSTROPN #### [facility] [address] [place] [address] Dr. Frank Nugent URIC ACID SERUMon 08-10-2022 Urate [Mass/Vol] 5.1 mg/dL Normal 3.5-7.2 [facility] Comment on above: Performed By: #### L IPA, CMP, CK, HSTROPN #### [facility] [address] [place] [address] Dr. Frank Nugent VITAMIN D 25 OHon 08-10-2022 VIT D 25-OH 12.1 ng/mL Normal [facility] Comment on above: Performed By: #### P SASC, VITAD #### [facility] [address] [place] [address] Dr. Frank Nugent VIT D RANGES SEE BELOW Normal [facility] Comment on above: Result Comment: <20 ng/mL Vit D deficient 20 - <30 ng/mL Vit D insufficient 30 - 100 ng/mL Vit D sufficient >100 ng/mL Potential Toxicity Performed By: #### P SASC, VITAD #### [facility] [address] [address] [address] Frank Nugent Urinalysison 04-25-2021 Appearance (U) Clear Normal Clear [facility] Comment on above: Order Comment: Name Collection Type:: Clean-Voided Midstream Performed By: #### U A #### [facility] [address] [place] [address] [place] Bilirubin,Urine Negative Normal Negative [facility] Comment on above: Order Comment: Name Collection Type:: Clean-Voided Midstream Performed By: #### U A #### [facility] [address] [place] [address] [place] Color (U) Yellow Normal Yellow [facility] Comment on above: Order Comment: Name Collection Type:: Clean-Voided Midstream Performed By: #### U A #### [facility] [address] [place] [address] [place] Glucose Ql (U) Normal Normal Normal [facility] Comment on above: Order Comment: Name Collection Type:: Clean-Voided Midstream Performed By: #### U A #### [facility] [address] [place] [address] [place] Ketones Ql (U) Negative Normal Negative [facility] Comment on above: Order Comment: Name Collection Type:: Clean-Voided Midstream Performed By: #### U A #### [facility] [address] [place] [address] [place] Leukocyte esterase Test strip Ql (U) Negative Normal Negative [facility] Comment on above: Order Comment: Name Collection Type:: Clean-Voided Midstream Performed By: #### U A #### [facility] [address] [place] [address] [place] Nitrite,Urine Negative Normal Negative [facility] Comment on above: Order Comment: Name Collection Type:: Clean-Voided Midstream Performed By: #### U A #### [facility] [address] [place], [place] [id number] [place] Occult Blood,Urine Negative Normal Negative [facility] Comment on above: Order Comment: Name Collection Type:: Clean-Voided Midstream Result Comment: PERF ORMED BY: [place] [address] PATHOLOGIST SENIOR PATIENT ACCOUNT REPRESENTATIVE HARESH LUI M.D. Performed By: #### U A #### [facility] [address] [place] [address] pH (U) 6.0 [pH] Normal 5.0-9.0 [facility] Comment on above: Order Comment: Name Collection Type:: Clean-Voided Midstream Performed By: #### U A #### [address] Protein,Urine Negative Normal Negative [facility] Comment on above: Order Comment: Name Collection Type:: Clean-Voided Midstream Performed By: #### U A #### [address] Specificy [place],Urine 1.018 Normal 1.001-1.030 [facility] Comment on above: Order Comment: Name Collection Type:: Clean-Voided Midstream Performed By: #### U A #### [address] Urobilinogen,Urine Normal Normal Normal [facility] Comment on above: Order Comment: Name Collection Type:: Clean-Voided Midstream Performed By: #### U A #### [facility] [address] [place] [address] XR chest 1V portableon 04-25 XR chest 1V portable [facility] [place] [address] XRay Report Signed Patient: Jerry Wilson MR#: [id number] : 1970 Acct:[id number] Age/Sex: 50 / M ADM Date: 04/24/21 Loc: ER Room: Type: [facility] ER Attending Dr: Ordering Provider: [...] Daphne Hutchinson M.D.04/25/2021 7:58 AM Dictation Location: [place] [address] Transcribed By: [facility] 04/25/217[address] Dictated By: Daphne Hutchinson MD 04/25/21756 Signed By: 04/25/21757 Normal [facility] B-Type Natriuretic Peptideon 04-24-2021 Natriuretic peptide B (Bld) [Mass/Vol] 20.0 pg/mL Normal 5-100 [facility] Comment on above: Result Comment: PERF ORMED BY: [facility] [address] [place] [address] PATHOLOGIST SENIOR PATIENT ACCOUNT REPRESENTATIVE HARESH LUI M.D. Performed By: #### H S TROP, CMP, CBC, BNP, MG #### [facility] [address] COVID-19 Antigenon 1 COVID-19 Antigen Results [...] its performance Adolfo Disclaimer characteristic determined by Nala and Adolfo Disclaimer validated at [facility]. This Adolfo Disclaimer test has not [...] terminated or revoked sooner. PERFORMED BY: [facility] [address] [place] [address] PATHOLOGIST SENIOR PATIENT ACCOUNT REPRESENTATIVE HARESH LUI M.D. [facility] Comment on above: Performed By: #### C OVID-19 ADOLFO, SOFIAPOS #### [facility] [address] [place] [address] [facility] Complete Blood Count Auto Di ffon 12-14-2021 Basophils (Bld) [#/Vol] 0.0 10*3/uL Normal 0.0-0.2 [facility] Comment on above: Result Comment: PERF ORMED BY: [place] [address] PATHOLOGIST SENIOR PATIENT ACCOUNT REPRESENTATIVE HARESH LUI M.D. Performed By: #### H S TROP, CMP, CBC, BNP, MG #### [address] Basophils/100 WBC (Bld) 0.7 % Normal . [facility] Comment on above: Performed By: #### H S TROP, CMP, CBC, BNP, MG #### [address] Eosinophils (Bld) [#/Vol] 0.1 10*3/uL Normal 0.0-0.45 [facility] Comment on above: Performed By: #### H S TROP, CMP, CBC, BNP, MG #### [address] Eosinophils/100 WBC (Bld) 1.8 % Normal . [facility] Comment on above: Performed By: #### H S TROP, CMP, CBC, BNP, MG #### [address] Erythrocyte distribution width (RBC) [Ratio] 12.9 % Normal 12.0-14.8 [facility] Comment on above: Performed By: #### H S TROP, CMP, CBC, BNP, MG #### [address] Hematocrit (Bld) [Volume fraction] 43.7 % Normal 38.8-50.0 [facility] Comment on above: Performed By: #### H S TROP, CMP, CBC, BNP, MG #### [address] Hemoglobin (Bld) [Mass/Vol] 15.0 g/dL Normal 13.0-17.0 [facility] Comment on above: Performed By: #### H S TROP, CMP, CBC, BNP, MG #### [address] Lymphocytes (Bld) [#/Vol] 0.7 10*3/uL Low 1.00-4.8 [facility] Comment on above: Performed By: #### H S TROP, CMP, CBC, BNP, MG #### [address] Lymphocytes/100 WBC (Bld) 14.0 % Normal . [facility] Comment on above: Performed By: #### H S TROP, CMP, CBC, BNP, MG #### [address] MCH (RBC) [Entitic mass] 29.7 pg Normal 27.5-35.2 [facility] Comment on above: Performed By: #### H S TROP, CMP, CBC, BNP, MG #### [address] MCV (RBC) [Entitic vol] 86.4 fL Normal 83.5-101 [facility] Comment on above: Performed By: #### H S TROP, CMP, CBC, BNP, MG #### [address] Mean Corpuscular HGB Conc 34.4 g/dL Normal 32.5-35.6 [facility] Comment on above: Performed By: #### H S TROP, CMP, CBC, BNP, MG #### [address] Monocytes (Bld) [#/Vol] 1.1 10*3/uL High 0.0-0.8 [facility] Comment on above: Performed By: #### H S TROP, CMP, CBC, BNP, MG #### [address] Monocytes/100 WBC (Bld) 21.3 % Normal . [facility] Comment on above: Performed By: #### H S TROP, CMP, CBC, BNP, MG #### [address] Neutrophils (Bld) [#/Vol] 3.2 10*3/uL Normal 1.8-7.7 [facility] Comment on above: Performed By: #### H S TROP, CMP, CBC, BNP, MG #### [facility] [address] Neutrophils/100 WBC (Bld) 62.2 % Normal . [facility] Comment on above: Performed By: #### H S TROP, CMP, CBC, BNP, MG #### [facility] [address] Nucleated RBC/100 WBC (Bld) [Ratio] 0.2 % Normal 0-0.5 [facility] Comment on above: Performed By: #### H S TROP, CMP, CBC, BNP, MG #### [address] Platelet mean volume (Bld) [Entitic vol] 9.6 fL Normal 6.6-10.1 [facility] Comment on above: Performed By: #### H S TROP, CMP, CBC, BNP, MG #### [facility] [address] Platelets (Bld) [#/Vol] 201 10*3/uL Normal 150-450 [facility] Comment on above: Performed By: #### H S TROP, CMP, CBC, BNP, MG #### [place] [address] [place] RBC (Bld) [#/Vol] 5.06 10*6/uL Normal 3.90-5.60 [facility] Comment on above: Performed By: #### H S TROP, CMP, CBC, BNP, MG #### [facility] [address] [place] [address] [place] WBC (Bld) [#/Vol] 5.2 10*3/uL Normal 4.5-11.0 [facility] Comment on above: Performed By: #### H S TROP, CMP, CBC, BNP, MG #### [facility] [address] Comprehensive Metabolic Pane alan 12-14-2021 Albumin [Mass/Vol] 4.2 g/dL Normal 3.2-5.5 [facility] Comment on above: Performed By: #### H S TROP, CMP, CBC, BNP, MG #### [facility] [address] Albumin/Globulin [Mass ratio] 1.3 {ratio} Normal [facility] Comment on above: Performed By: #### H S TROP, CMP, CBC, BNP, MG #### [facility] [address] ALP [Catalytic activity/Vol] 55 U/L Normal 32-92 [facility] Comment on above: Performed By: #### H S TROP, CMP, CBC, BNP, MG #### [facility] [address] ALT [Catalytic activity/Vol] 85 U/L High 10-60 [facility] Comment on above: Performed By: #### H S TROP, CMP, CBC, BNP, MG #### [facility] [address] [place] [address] AST [Catalytic activity/Vol] 82 U/L High 10-42 [facility] Comment on above: Performed By: #### H S TROP, CMP, CBC, BNP, MG #### [facility] [address] Bilirubin [Mass/Vol] 1.1 mg/dL Normal 0.3-1.2 [facility] Comment on above: Performed By: #### H S TROP, CMP, CBC, BNP, MG #### [facility] [address] [place] [address] [place] Calcium [Mass/Vol] 9.6 mg/dL Normal 8.2-10.2 [facility] Comment on above: Performed By: #### H S TROP, CMP, CBC, BNP, MG #### [facility] [address] [place] [address] [place] Chloride [Moles/Vol] 103 mmol/L Normal 95-114 [facility] Comment on above: Performed By: #### H S TROP, CMP, CBC, BNP, MG #### [facility] [address] CO2 [Moles/Vol] 21.2 mmol/L Low 22.0-30.0 [facility] Comment on above: Performed By: #### H S TROP, CMP, CBC, BNP, MG #### [facility] [address] Creatinine [Mass/Vol] 1.16 mg/dL Normal 0.64-1.27 [facility] Comment on above: Performed By: #### H S TROP, CMP, CBC, BNP, MG #### [address] Creatinine Clr Calc Pharmacy 118.79 [facility] Comment on above: Performed By: #### H S TROP, CMP, CBC, BNP, MG #### [address] Estimated GFR ( Stacey > 60 [facility] Comment on above: Result Comment: GFR estimated reference range: According to KDOQI guidelines, <60 ml/min/1.73m2 is sufficient to diagnose a patient with chronic kidney disease. Performed By: #### H S TROP, CMP, CBC, BNP, MG #### [address] Estimated GFR (Non- Am > 60 [facility] Comment on above: Performed By: #### H S TROP, CMP, CBC, BNP, MG #### [address] Globulin (S) [Mass/Vol] 3.2 g/dL [facility] Comment on above: Performed By: #### H S TROP, CMP, CBC, BNP, MG #### [address] Glucose [Mass/Vol] 144 mg/dL High 70-100 [facility] Comment on above: Result Comment: [place] Glucose Reference Range is dependent on time and content of last meal. Glucose of more than 200 mg/dL in a nonstressed, ambulatory subject supports the diagnosis of Diabetes Mellitus. ADA recommended reference range Performed By: #### H S TROP, CMP, CBC, BNP, MG #### [address] Potassium [Moles/Vol] 4.0 mmol/L Normal 3.5-5.1 [facility] Comment on above: Performed By: #### H S TROP, CMP, CBC, BNP, MG #### [address] Protein [Mass/Vol] 7.4 g/dL Normal 6.1-7.9 [facility] Comment on above: Performed By: #### H S TROP, CMP, CBC, BNP, MG #### [address] Sodium [Moles/Vol] 135 mmol/L Low 136-146 [facility] Comment on above: Performed By: #### H S TROP, CMP, CBC, BNP, MG #### [address] Urea nitrogen [Mass/Vol] 20 mg/dL Normal 9-23 [facility] Comment on above: Performed By: #### H S TROP, CMP, CBC, BNP, MG #### [address] ECG 12 lead ECGon 04-24-2021 ECG 12 lead ECG [facility] Main [place] [address] [place] [address] Electrocardiograph Report Signed Patient: Jerry Wilson MR#: [id number] : 1970 Acct:[id number] Age/Sex: 50 / M ADM Date: 04/24/21 Loc: ER Room: Type: [facility] ER Attending Dr: Ordering Provider: [...] sinus rhythm Confirmed by Nitesh PITTMAN DO ([id number]) on 04/25/2021 12:42:23 AM Referred By: Electronically Signed By:Nitesh PITTMAN DO Transcribed By: MUS Signed By Nitesh Pittman DO 1 06/26/20 0042 Normal [facility] Magnesiumon 04-24-2021 Magnesium [Mass/Vol] 1.9 mg/dL Normal 1.6-2.6 [facility] Comment on above: Result Comment: PERF ORMED BY: [place] [address] PATHOLOGIST SENIOR PATIENT ACCOUNT REPRESENTATIVE HARESH LUI M.D. Performed By: #### H S TROP, CMP, CBC, BNP, MG #### [facility] [address] [place] [address] [facility] Partial Thromboplastin Timeo n 04-24-2021 aPTT Coag (Bld) [Time] 29.3 s Normal 25.1-36.5 [facility] Comment on above: Result Comment: PERF ORMED BY: [place] [address] PATHOLOGIST SENIOR PATIENT ACCOUNT REPRESENTATIVE HARESH LUI M.D. Performed By: #### P TT, PT #### [facility] [address] [place] [address] [place] Prothrombin Time INRon 04-24 INR Coag (PPP) [Relative time] 1.0 {INR} Normal [facility] Comment on above: Result Comment: INR [...] Performed By: #### P TT, PT #### [facility] [address] [place] [address] [place] PT Coag (PPP) [Time] 11.5 s Normal 9.0-12.9 [facility] Comment on above: Performed By: #### P TT, PT #### [facility] [address] Adolfo Ag Positiveon 04-24-20 21 Adolfo Ag Positive Positive Critically abnormal Negative [facility] Comment on above: Result Comment: This is a duplicate Adolfo SARS Antigen ([place]) result to be used for statistical tracking purpose only. PERFORMED BY: [place] [address] PATHOLOGIST SENIOR PATIENT ACCOUNT REPRESENTATIVE HARESH LUI M.D. Performed By: #### C OVID-19 ADOLFO, SOFIAPOS #### [address] Troponin I High Sensitivityo n 04-24-2021 Troponin I High Sensitivity 4 pg/mL Normal 0-20 [facility] Comment on above: Result Comment: PERF ORMED BY: [place] [address] PATHOLOGIST SENIOR PATIENT ACCOUNT REPRESENTATIVE HARESH LUI M.D. Performed By: #### H S TROP, CMP, CBC, BNP, MG #### [address] Follow Up (Pulmonary Medicin e)on 01-12-2021 Follow Up (Pulmonary Medicine) Diagnoses/Problems Dyspnea on exertion (786.09) (R06.00) Sarcoidosis (135) (D86.9) CLEM on CPAP (327.23,V46.8) (G47.33,Z99.89) Orders Cardiopulmonary Stress Test (Met Stress Test); Status:Hold For - Scheduling; Requested for:[id number]; Perform:[facility] ([place]); Due:[id number];Ordered ; For:Dyspnea on exertion; Ordered By:Carter Dangelo; [...] Dr. Zuñiga Other: Dr. Jaimes (pulmonary in [place]) HPI: 11/22/2020: At baseline, he had no [...] He was started on prednisone by his activities coordinator in July. He initially felt slightly improved but shortly started worsening again. 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 Has known exposure to asbestos, silica or beryllium CTD evaluation: No hx of joint pain/swelling, skin rashes, Raynaud's, sicca syndrome, eye redness, muscle pain and weakness, difficulty swallowing. Family History: No family history of lung diseases or cancer Imaging history: (I have personally reviewed the imaging below) 12/15/2020 HRC (more content not included)... Normal Bei[facility] Tobacco Screening.on Fall risk assessment a) No falls within the last year [facility] [facility] Work Phone: [phone] Tobacco use status CPHS b) No [facility] Work Phone: [phone] No Panel Informationon 12-15 [email or web address]?RetrieveTest ByDateTime?PatientID= [id number]&Date=2020&Time=13%3a21%3a3 0%3a00&TestType=ECG&S ite=1&OutputType=PDF& Ext=PDF [facility] Work Phone: [phone] Normal sinus rhythm [facility] Work Phone: [phone] Normal [facility] Work Phone: [phone] 1 [facility] Work Phone: [phone] 1 [facility] Work Phone: [phone] 1 [facility] Work Phone: [phone] 1 [facility] Work Phone: [phone] 1 [facility] Work Phone: [phone] 1 [facility] Work Phone: [phone] 1 [facility] Work Phone: [phone] -[phone] 1 [facility] Work Phone: [phone] 1 [facility] Work Phone: [phone] 1 [facility] Work Phone: [phone] 1 [facility] Work Phone: [phone] 1 [facility] [...] Test; Status:Hold For - Scheduling; Requested for:22Nov2020; Perform:[facility]3]; Due:20Feb2021;Ordered ; For:ILD (interstitial lung disease); Ordered By:Carter Dangelo; Calcium, Urine 24 Hour; Status:Active; Requested for:22Nov2020; Perform:[facility] - Lab To Draw (Non-Blood Test); Due:20Feb2021;Ordered ; For:ILD (interstitial lung disease); Ordered By:Carter Dangelo; Complete Blood Count + Differential; Status:In Progress - Specimen/Data Collected; Done: [id number] Perform:[facility] - Lab To Draw (Blood Test); Due:20Feb2021;Ordered ; For:ILD (interstitial lung disease); Ordered By:Carter Dangelo; Complete PFT w/o ABG; Status:Hold For - Scheduling; Requested for:22Nov2020; Perform:[facility]3]; Due:20Feb2021;Ordered ; For:ILD (interstitial lung disease); Ordered By:Carter Dangelo; Comprehensive Metabolic Panel; Status:In Progress - Specimen/Data Collected; Done: [id number] Perform:[facility] - Lab To Draw (Blood Test); Due:20Feb2021;Ordered ; For:ILD (interstitial lung disease); Ordered By:Carter Dangelo; CT Chest without Contrast; Status:Active; Requested for:[id number]; Perform:[facility];Ordered; For:ILD (interstitial lung disease); Ordered By:Carter Dangelo; Patient taking Metformin or Derivatives? : No Radiologist to Determine Optimal Study : Y What are the patient's signs and symptoms? : dyspnea on exertion Echocardiogram; Status:Hold For - Scheduling; Requested for:22Nov2020; Perform:[facility] ([place]); Due:20Feb2021;Ordered ; For:ILD (interstitial lung disease); Ordered By:Carter Dangelo; Electrocardiogram EKG; Status:Hold For - Scheduling; Requested for:22Nov2020; Perform:[facility] [place] [address]; Due:20Feb2021;Ordered ; For:ILD (interstitial lung disease); [...] Daily Vitals Vital Signs Recorded: 22Nov2020 01:10PM Xsrfdjzrgjz44.8 F Heart Rate96 Haehmbln175 Ekvqvfxng03 Qcshnh258 lb 14.4 oz Tobacco Useb) No Fall Screeninga) No falls within the last year O2 Miajjoefxo04, RA Pain Scale0 Signatures Electronically signed by : Carter Dangelo MD; Nov 22 2020 5:33PM EST (Author) Normal [employer] Initial Visit (Pulmonary Med icine)on 11-22-2020 Initial Visit (Pulmonary Medicine) Diagnoses/Problems Daily caffeine consumption Sarcoidosis (135) (D86.9) Mediastinal lymphadenopathy (785.6) (R59.0) Dyspnea on exertion (786.09) (R06.00) CLEM on CPAP (327.23,V46.8) (G47.33,Z99.89) Orders 6 Minute Walk Test; Status:Hold For - Scheduling; Requested for:22Nov2020; Perform:[facility]3]; Due:20Feb2021;Ordered ; For:ILD (interstitial lung disease); Ordered By:Carter Dangelo; Calcium, Urine 24 Hour; Status:Active; Requested for:22Nov2020; Perform:[facility] - Lab To Draw (Non-Blood Test); Due:20Feb2021;Ordered ; For:ILD (interstitial lung disease); Ordered By:Carter Dangelo; Complete Blood Count + Differential; Status:In Progress - Specimen/Data Collected; Done: [id number] Perform:[facility] - Lab To Draw (Blood Test); Due:20Feb2021;Ordered ; For:ILD (interstitial lung disease); Ordered By:Carter Dangelo; Complete PFT w/o ABG; Status:Hold For - Scheduling; Requested for:22Nov2020; Perform:[facility]3]; Due:20Feb2021;Ordered ; For:ILD (interstitial lung disease); Ordered By:Carter Dangelo; Comprehensive Metabolic Panel; Status:In Progress - Specimen/Data Collected; Done: [id number] Perform:[facility] Services - Lab To Draw (Blood Test); Due:20Feb2021;Ordered ; For:ILD (interstitial lung disease); Ordered By:Carter Dangelo; CT Chest without Contrast; Status:Active; Requested for:15Dec2020; Perform:[facility];Ordered; For:ILD (interstitial lung disease); Ordered By:Carter Dangelo; Patient taking Metformin or Derivatives? : No Radiologist to Determine Optimal Study : Y What are the patient's signs and symptoms? : dyspnea on exertion Echocardiogram; Status:Hold For - Scheduling; Requested for:22Nov2020; Perform:[facility] ([place]); Due:20Feb2021;Ordered ; For:ILD (interstitial lung disease); Ordered By:Carter Dangelo; Electrocardiogram EKG; Status:Hold For - Scheduling; Requested for:22Nov2020; Perform:[facility] [place] [address]; Due:20Feb2021;Ordered ; For:ILD (interstitial lung disease); Ordered By:Carter Dangelo; HIV 1/2 ANTIGEN/ANTIBODY SCREEN WITH REFLEX TO CONFIRMATION; Status:In Progress - Specimen/Data Collected; Done: [id number] Perform:[facility] Services - Lab To Draw (Blood Test); Due:20Feb2021;Ordered ; For:ILD (interstitial lung disease); Ordered By:Carter Dangelo; MISCELLANEOUS TEST; Status:In Progress - Specimen/Data Collected; Done: [id number] Perform:[facility] Services - Lab To Draw (Non-Blood Test); Order Comments:Beryllium lymphocyte proliferation test; Due:20Feb2021;Ordered ; For:ILD (interstitial lung disease); Ordered By:Carter Dangelo; T-SPOT. TB; Status:In Progress - Specimen/Data Collected; Done: [id number] Perform:[facility] Services - Lab To Draw (Blood Test); Due:19Yne9770;Ordered ; For:ILD (interstitial lung disease); Ordered By:Carter Dangelo; Urinalysis; Status:In Progress - Specimen/Data Collected; Done: [id number] Perform:Lab Services - Lab To Draw (Non-Blood Test); Due:20Feb2021;Ordered ; For:ILD (interstitial lung disease); Ordered By:Carter Dangelo; Vitamin D 25-Hydroxy; Status:In Progress - Specimen/Data Collected; Done: [id number] Perform:Lab Services - Lab To Draw (Blood Test); Due:20Feb2021;Ordered ; For:ILD (interstitial lung disease); Ordered By:Carter Dangelo; Vitamin-D 1,25-Dihydroxy, Level; Status:In Progress - Specimen/Data Collected; Done: [id number] Perform:Lab Services - Lab To Draw (Blood [...] will sta (more content not included)... Normal [employer] Tobacco Screening.on 021 Fall risk assessment a) No falls within the last year [facility] Work Phone: Tobacco use status CPHS b) No [facility] Work Phone: Consult (Pulmonary Medicine) [...] HFA Social History: Tobacco: Never smoker Occupation: [employer], dust exposure Imaging history: (I have [...] Auto #/vol (Bld) 0.0 10*3/uL Normal 0.0-0.2 [facility] Basophils/100 WBC Auto (Bld) 0.5 % Normal [facility] Eosinophils Auto #/vol (Bld) 0.1 10*3/uL Normal 0.0-0.7 [facility] Eosinophils/100 WBC Auto (Bld) 2.6 % Normal [facility] Erythrocyte distribution width Auto Ratio (RBC) 12.6 % Normal 11.5-14.5 [facility] Hematocrit Auto Volume Fraction (Bld) 38.2 % Low 42.0-52.0 [facility] Hemoglobin mass conc (Bld) 13.1 g/dL Low 14.0-18.0 [facility] Lymphocytes Auto #/vol (Bld) 0.8 10*3/uL Low 1.0-4.8 [facility] Lymphocytes/100 WBC Auto (Bld) 18.0 % Normal [facility] MCH Auto Entitic mass (RBC) 30.7 pg Normal 27.0-31.3 [facility] MCHC Auto mass conc (RBC) 34.4 % Normal 33.0-37.0 [facility] MCV Auto Entitic volume (RBC) 89.3 fL Normal 80.0-100.0 [facility] Monocytes Auto #/vol (Bld) 0.7 10*3/uL Normal 0.2-0.8 [facility] Monocytes/100 WBC Auto (Bld) 14.3 % Normal [facility] Neutrophils Auto #/vol (Bld) 3.0 10*3/uL Normal 1.4-6.5 [facility] Neutrophils/100 WBC Auto (Bld) 64.6 % Normal [facility] Platelets Auto #/vol (Bld) 233 10*3/uL Normal 130-400 [facility] RBC Auto #/vol (Bld) 4.28 10*6/uL Low 4.70-6.10 [facility] WBC Auto #/vol (Bld) 4.6 10*3/uL Low 4.8-10.8 [facility] Sedimentation Rateon 018 Sedimentation Rate 48 mm Critically high 0-10 [facility] Basic Metabolic Panel Reflex Mgon 05-01-2018 Anion gap 3 molar conc 15 mmol/L Critically high 7-13 [facility] Calcium mass conc 8.9 mg/dL Normal 8.6-10.2 [facility] Chloride molar conc 102 mmol/L Normal 98-107 [facility] CO2 molar conc 22 mmol/L Normal 22-29 [facility] Creatinine mass conc 0.85 mg/dL Normal 0.70-1.20 [facility] GFR/1.73 sq M predicted among blacks MDRD vol rate/area (S/P/Bld) mL/min/{1.73_m2} Normal >60 [facility] Comment on above: Result Comment: >60 mL/min/1.73m2 EGFR, calc. for ages 18 and older using theMDRD formula (not corrected for weight), is valid for stablerenal function. GFR/1.73 sq M.predicted MDRD vol rate/area mL/min/{1.73_m2} Normal >60 [facility] Comment on above: Result Comment: >60 mL/min/1.73m2 EGFR, calc. for ages 18 and older using theMDRD formula (not corrected for weight), is valid for stablerenal function. Glucose mass conc 189 mg/dL Critically high 74-109 [facility] Potassium reflex Mg 4.7 mEq/L Normal 3.5-5.1 [facility] Sodium molar conc 139 mmol/L Normal 132-144 [facility] Urea nitrogen mass conc 19 mg/dL Normal 6-20 [facility] CBC With Platelet and Differ entialon 05-01-2018 Basophils Auto #/vol (Bld) 0.0 10*3/uL Normal 0.0-0.2 [facility] Basophils/100 WBC Auto (Bld) 0.2 % Normal [facility] Eosinophils Auto #/vol (Bld) 0.0 10*3/uL Normal 0.0-0.7 [facility] Eosinophils/100 WBC Auto (Bld) 0.0 % Normal [facility] Erythrocyte distribution width Auto Ratio (RBC) 12.8 % Normal 11.5-14.5 [facility] Hematocrit Auto Volume Fraction (Bld) 40.5 % Low 42.0-52.0 [facility] Hemoglobin mass conc (Bld) 14.3 g/dL Normal 14.0-18.0 [facility] Lymphocytes Auto #/vol (Bld) 0.6 10*3/uL Low 1.0-4.8 [facility] Lymphocytes/100 WBC Auto (Bld) 6.1 % Normal [facility] MCH Auto Entitic mass (RBC) 31.1 pg Normal 27.0-31.3 [facility] MCHC Auto mass conc (RBC) 35.3 % Normal 33.0-37.0 [facility] MCV Auto Entitic volume (RBC) 88.2 fL Normal 80.0-100.0 [facility] Monocytes Auto #/vol (Bld) 0.3 10*3/uL Normal 0.2-0.8 [facility] Monocytes/100 WBC Auto (Bld) 2.6 % Normal [facility] Neutrophils Auto #/vol (Bld) 9.1 10*3/uL Critically high 1.4-6.5 [facility] Neutrophils/100 WBC Auto (Bld) 91.1 % Normal [facility] Platelets Auto #/vol (Bld) 209 10*3/uL Normal 130-400 [facility] RBC Auto #/vol (Bld) 4.60 10*6/uL Low 4.70-6.10 [facility] WBC Auto #/vol (Bld) 9.9 10*3/uL Normal 4.8-10.8 [facility] XR LUMBAR SPINE (2-3 VIEWS)o [...] Rodríguez, DOSigned by:Matteo Rodríguez, DO05/01/18Final result Normal [facility] Antibody IDon 04-30-2018 Antibody ID PATIENT: LAURO Chan LOC: GILBERT RIVERA NONBILL# : [id number] : 1970 SEX: MORDERED BY: SAVANAH BILLS ORDERED : 04/30/2018 11:55 COLLECTED: 04/30/2018 10:45ORDER : [id number] RECEIVED : 04/30/2018 10:45 Notified [facility] of positive ab screen and delay of compatible blood 04/30/18 11:40 Erika Rodgers TEST NAME RESULT UNITS RANGES ABN FL STAntibody ID POS, Cold Auto Aggluti F Normal [facility] Basic Metabolic Panel Reflex Mgon 04-30-2018 Anion gap 3 molar conc 17 mmol/L Critically high 7-13 [facility] Calcium mass conc 9.1 mg/dL Normal 8.6-10.2 [facility] Chloride molar conc 102 mmol/L Normal 98-107 [facility] CO2 molar conc 20 mmol/L Low 22-29 [facility] Creatinine mass conc 1.07 mg/dL Normal 0.70-1.20 [facility] GFR/1.73 sq M predicted among blacks MDRD vol rate/area (S/P/Bld) mL/min/{1.73_m2} Normal >60 [facility] Comment on above: Result Comment: >60 mL/min/1.73m2 EGFR, calc. for ages 18 and older using theMDRD formula (not corrected for weight), is valid for stablerenal function. GFR/1.73 sq M.predicted MDRD vol rate/area mL/min/{1.73_m2} Normal >60 [facility] Comment on above: Result Comment: >60 mL/min/1.73m2 EGFR, calc. for ages 18 and older using theMDRD formula (not corrected for weight), is valid for stablerenal function. Glucose mass conc 132 mg/dL Critically high 74-109 [facility] Potassium reflex Mg 4.1 mEq/L Normal 3.5-5.1 [facility] Sodium molar conc 139 mmol/L Normal 132-144 [facility] Urea nitrogen mass conc 21 mg/dL Critically high 6-20 [facility] CBC With Platelet No Differe ntialon 04-30-2018 Erythrocyte distribution width Auto Ratio (RBC) 12.9 % Normal 11.5-14.5 [facility] Hematocrit Auto Volume Fraction (Bld) 43.8 % Normal 42.0-52.0 [facility] Hemoglobin mass conc (Bld) 15.0 g/dL Normal 14.0-18.0 [facility] MCH Auto Entitic mass (RBC) 30.7 pg Normal 27.0-31.3 [facility] MCHC Auto mass conc (RBC) 34.3 % Normal 33.0-37.0 [facility] MCV Auto Entitic volume (RBC) 89.5 fL Normal 80.0-100.0 [facility] Platelets Auto #/vol (Bld) 208 10*3/uL Normal 130-400 [facility] RBC Auto #/vol (Bld) 4.89 10*6/uL Normal 4.70-6.10 [facility] WBC Auto #/vol (Bld) 10.4 10*3/uL Normal 4.8-10.8 [facility] BRIAN Poly Tubeon 04-30-2018 BRIAN Poly Tube PATIENT: LAURO Chan LOC: LCOPS,ORPOOL,NONBILL# : [id number] : 1970 SEX: MORDERED BY: SAVANAH BILLS ORDERED : 04/30/2018 12:48 COLLECTED: 04/30/2018 10:45ORDER : [id number] RECEIVED : 04/30/2018 10:45 Notified [facility] of positive ab screen and delay of compatible blood 04/30/18 11:40 Erika Rodgers TEST NAME RESULT UNITS RANGES ABN FL STDAT Poly Tube NEG F Normal [facility] FLUORO FOR SURGICAL PROCEDUR ESon 04-30-2018 [...] ANN Lucianoigned by:Cruz Ledesma MD05/01/18inal result Normal [facility] RBC LRon 04-30-2018 RBC Auto #/vol (Bld) PATIENT: LAURO Chan LOC: LC2N,N226,01BILL# : [id number] : 1970 SEX: MORDERED BY: SAVANAH BILLS ORDERED : 04/30/2018 11:55 COLLECTED: 04/30/2018 18:46ORDER : [id number] RECEIVED : 04/30/2018 19:12 Notified [facility] of positive ab screen and delay of compatible blood 04/30/18 11:40 Erika Rodgers TEST NAME RESULT UNITS RANGES ABN FL STRBC LR [id number] RBC LR W0 F = Normal [facility] Rejection Notificationon Rejected Test tyrcc Normal [facility] Type and Screen Capture 3 sc rn cellon 04-30-2018 Type and Screen Capture 3 scrn cell PATIENT: LAURO Chan LOC: GILBERT RIVERA NONBILL# : [id number] : 1970 SEX: MORDERED BY: SAVANAH BILLS ORDERED : 04/30/2018 10:06 COLLECTED: 04/30/2018 10:45ORDER : [id number] RECEIVED : 04/30/2018 10:45 Notified [facility] of positive ab screen and delay of compatible blood 04/30/18 11:40 Erika Rodgers TEST NAME RESULT UNITS RANGES ABN FL STABORH Capture B POS FAntibody 3 Cell Scrn Captu POS F Normal [facility] Vital Signs Date Time Vital Sign Value Performing Clinician Facility 07-30-2024 09:30-0400 Body temperature 97.7 [degF] Sofie Durbin MD Work Phone: [facility] 07-30-2024 09:30-0400 Diastolic blood pressure 60 mm[Hg] Sofie Durbin MD Work Phone: [facility] 03-21-2025 09:30-0400 Heart rate 80 /min Sofie Durbin MD Work Phone: [facility] 07-30-2024 09:30-0400 Respiratory rate 18 /min Sofie Durbin MD Work Phone: [facility] 07-30-2024 09:30-0400 SaO2% (BldA) [Mass fraction] 92 % Sofie Durbin MD Work Phone: [facility] 07-30-2024 09:30-0400 Systolic blood pressure 126 mm[Hg] Sofie Durbin MD Work Phone: [facility] 07-29-2024 22:04-0400 Body height 177.8 cm Sofie Durbin MD Work Phone: [facility] 07-29-2024 22:04-0400 Body mass index (BMI) [Ratio] 47.35 kg/m2 Sofie Durbin MD Work Phone: [facility] 07-29-2024 22:04-0400 Body weight 149.68 kg Sofie Durbin MD Work Phone: [facility] Comment on above: ACTUAL BED WEIGHT 05-24-2024 09:54-0500 Diastolic blood pressure 88 mm[Hg] Alex PANG [facility] 05-24-2024 09:54-0500 Heart rate 80 /min Alex PANG [facility] 05-24-2024 09:54-0500 Respiratory rate 16 /min Alex PANG [facility] 05-24-2024 09:54-0500 Systolic blood pressure 152 mm[Hg] Alex PANG [facility] 02-11-2023 14:18-0400 Blood Pressure Location Bill MONAE [facility] [place] 02-11-2023 14:18-0400 Diastolic blood pressure 104 mm[Hg] Bill MONAE [facility] [place] 02-11-2023 14:18-0400 Heart rate 80 /min Bill MONAE [facility] [place] 02-11-2023 14:18-0400 Respiratory rate 16 /min Bill MONAE [facility] [place] 02-11-2023 14:18-0400 Systolic blood pressure 140 mm[Hg] Bill MONAE [facility] [place] 01-12-2021 13:17-0400 Body temperature 96.1 [degF] Referring [...] Type Care Provider Facility Start: 08-10-2024 ambulatory [facility] Start: 07-29-2024 End: 07-30-2024 Subsequent hospital visit by physician Jona Meneses [facility] Comment on above: Calculus of kidney Kidney stone (Primar y Dx); Calculus of kidney; Right kidney stone Start: 07-29-2024 End: 07-30-2024 ambulatory [facility] Start: 07-19-2024 End: 07-19-2024 ambulatory [facility] Start: 07-19-2024 End: 07-19-2024 ambulatory [facility] Start: 07-19-2024 End: 07-19-2024 Encounter for other preprocedural examination [facility] Start: 05-24-2024 End: 05-24-2024 ambulatory Alex Noel PANG Facility:[facility] Start: 05-24-2024 End: 05-24-2024 Patient encounter procedure Alex Cohen POLY [facility] Start: 03-30-2024 End: 03-30-2024 ambulatory JAIME KAPLAN Facility:[facility] Start: 03-30-2024 End: 03-30-2024 Lab Drop off JAIME KAPLAN [facility] Start: 03-30-2024 End: 03-30-2024 ambulatory PA-C JAIME KAPLAN Facility:[facility] Start: 03-30-2024 End: 03-30-2024 Patient encounter procedure JAIME KAPLAN [facility] Start: 03-05-2024 ambulatory Alex PANG Facility:[facility] Start: 04-22-2023 End: 04-22-2023 Patient encounter procedure iBll MONAE [facility] [place] Start: 02-11-2023 End: 02-11-2023 Patient encounter procedure Bill MONAE [facility] Start: 09-13-2022 End: 09-13-[address] DORON ZUÑIGA . [employer] Other Start: 09-13-2022 Patient encounter procedure Halie Sam [facility] Start: 08-16-2022 Encounter for genera l adult medical examination without abnormal findings DR DORON ZUÑIGA . [facility] Start: 08-10-2022 End: 08-11-[address] DORON [...] 05-07-2018 End: 05-07-2018 Emergency department patient visit [facility] Start: 05-07-2018 Encounter for genera l adult medical examination without abnormal findings [facility] Start: 04-30-2018 End: 05-03-2018 Patient encounter procedure [facility] Start: 04-30-2018 End: 05-02-2018 Evaluation and management of inpatient [facility] Patient encounter status Referri ng Provider [...] Performed By: #### P NESTOR BENITO #### [facility] [address] [place] [address] Dr. Frank Nugent Start: 07-19-2020 Basic metabolic [...] 05-01-2018 INITIATE OXYGEN THER APY PROTOCOL GIACOMO SAVAANH Start: 05-01-2018 PULSE OXIMETRY, CONTINUOUS GIACOMO SAVANAH [...] Screening for malign ant neoplasm of colon [facility] Start: 07-29-2025 Diabetes mellitus screening Diabetes Screening [facility] Start: 01-11-2024 COVID-19 Vaccine ( season) COVID-19 Vaccine ( season) [facility] Start: 01-11-2024 Influenza vaccination Influenza Vacc ine (#1) [facility] Start: 2022 Pneumococcal vaccination Pneumococcal Vaccine (1 of 1 - PCV) [facility] Start: 2022 Zoster Vaccines (1 o f 2) Zoster Vaccines (1 of 2) [facility] Start: 01-12-2021 FUV, Provider: Carter Dangelo, [...] - Tdap) DTaP/Tdap/Td Vaccines (1 - Tdap) [facility] Start: 10-05-1991 Hepatitis A Vaccines (1 of 2 - Risk 2-dose series) Hepatitis A Vaccines (1 of 2 - Risk 2-dose series) [facility] Start: 10-05-1991 Hepatitis B Vaccines (1 of 3 - 19+ 3-dose series) Hepatitis B Vaccines (1 of 3 - 19+ 3-dose series) [facility] Start: 1990 Hepatitis C screening Hepatitis C [facility] Start: 1973 MMR Vaccines (1 of 1 - Standard series) MMR Vaccines (1 of 1 - Standard series) [facility] Start: 1972 Lipid panel Lipid Panel [facility] Start: 1972 Screening for malign ant neoplasm of colon [facility] Start: 1972 Yearly Adult Physical Yearly Adult P hysical [facility] Calculi (Stone) Analysis [facility] Service Area Work Phone: Comment on above: Release Upon Eduardoin g for 1 Occurrences starting 07/29/2024 End: 07-29-2024 Guidance for dilation of existing nephrostomy tract and placement of nephrostomy tube at new site of Kidney [facility] Service Area Work Phone: Comment on above: Once for 1 Occurrenc es starting 07/29/2024 until 07/29/2024 End: 07-29-2024 Incentive spirometry Instruct Incentive spirometry Instruct Respiratory Care Routine Once for 1 Occurrences starting 07/29/2024 until 07/29/2024 [facility] Work Phone: Comment on above: Once for 1 Occurrenc es starting 07/29/2024 until 07/29/2024 End: 07-29-2024 Noninvasive Ventilation Patient to use: At night; Mode: CPAP; Ventilation type: CPAP; PEEP/CPAP (cm H2O): 10 Noninvasive Ventilation Patient to use: At night; Mode: CPAP; Ventilation type: CPAP; PEEP/CPAP (cm H2O): 10 Respiratory Care Routine Continuous until discontinued starting 07/29/2024 [facility] Service Area Work Phone: Comment on above: Continuous until dis continued starting 07/29/2024 End: 07-29-2024 US Guidance for fluid aspiration of Unspecified body region [facility] Service Area Work Phone: Comment on above: Once for 1 Occurrenc es starting 07/29/2024 until 07/29/2024 Immunizations Immunization Date Immunization Notes Care Provider Fa cility 09-18-2020 Pfizer-BioNTech COVI D-19 Vacc 30 MCG/0.3ML Intramuscular Suspension Referring Provider Unknown [facility] 08-28-2020 Pfizer-BioNTech COVI D-19 Vacc 30 MCG/0.3ML Intramuscular Suspension Referring Provider Unknown [facility] Payers Date Payer Category Payer Managed Care (Private) [facility] [place] [address] [id number] 2017 Unknown [id number] 1970 Unknown [id number] [id number]. 2.182 1970 Unknown [id number] 2.16.840.1.571180.3.579. 2.182 1972 Unknown [id number] 2.16.840.1.451400.3.579. 2.182 1972 Unknown [id number] 2.16.840.1.664809.3.579. 2.593 1970 Unknown [id number] 2.16.840.1.312546.3.579. 2.593 1972 Unknown [id number] 2.16.840.1.690341.3.579. 2.727 1972 Unknown [id number] 2.16.840.1.177122.3.579. 2.727 1972 Unknown [id number] 2.16.840.1.024181.3.579. 2.727 1972 Unknown [id number] 2.16.840.1.765826.3.579. 2.1243 1972 Unknown [id number] 2.16.840.1.378831.3.579. 2.1243 1972 Unknown [id number] 2.16.840.1.153073.3.579. 2.124 1972 Unknown [id number] 2.16.840.1.607398.3.579. 2.124 1972 Unknown [id number] 2.16.840.1.565122.3.579. 2.1243 1959 Unknown [id number] Unknown Social History Date Type Detail Facility Start: 07-29-2024 End: 07-30-2024 Never a smoker Never a smoker [facility] Start: 07-29-2024 End: 07-30-2024 Sex Assigned At [facility] Start: 02-11-2023 End: 07-19-2024 Tobacco smoking status Never smoked tobacco (finding) [facility] Tobacco smoking status Never [facility] Start: 07-19-2024 Tobacco use and exposure Smokeless tobacco non-user [facility] Work Phone: Start: 07-29-2024 Alcoholic beverage intake Current drinker of alcohol (finding) [facility] Work Phone: Has the [employer], gas, oil, or water [employer] threatened to shut off services in your home in past 12Mo No [facility] Work Phone: Are you now , , , , never or living with a partner? [facility] Work Phone: How often to you hav e a drink containing alcohol? Monthly or less [facility] Work Phone: How many standard drinks containing alcohol do you have on a typical day? 1 or 2 [facility] Work Phone: How often do you hav e 6 or more drinks on 1 occasion? Never [facility] Work Phone: Do you feel stress - tense, restless, nervous, or anxious, or unable to sleep at night because your mind is troubled all the time - these days [OSQ] Not at all [facility] Work Phone: (I/We) worried whether (my/our) food would run out before (I/we) got money to buy more. Never true [facility] Work Phone: Start: 07-19-2024 Alcohol Comment 4-5 drinks/year [facility] Work Phone: Start: 1970 Sex assigned at Not on file [facility] Work Phone: Start: 07-29-2024 Sexual orientation Heterosexual (mario chacon) [facility] Start: 07-19-2024 End: 07-29-2024 Exposure to SARS-CoV-2 (event) Not sure [facility] NEGATED: Highlighted row - - [facility] Work Phone: Medical Equipment Procedure Code Equipment Code Equipment Origin al Text Equipment Identifier Dates Stent, Ureteral Contour, 6fr X 28cm - [id number] Start: 07-29-2024 Stent, Ureteral Percuflex 6 X 28 - [id number] Start: 07-29-2024 Functional Status Date Assessment Result Facility 05-24-2024 Functional Status N/A [facility] 03-30-2024 Functional Status N/A [facility] 02-11-2023 Functional Status N/A [facility] NEGATED: Highlighted row Functional performance Functional status health issues are not documented Disease [facility] Work Phone: Mental Status Date Assessment Result [...] were you homeless or living in a custodial (including now)? N Transportation Needs In the [...] spouse. PCP is Dr Zuñiga. He uses [facility] in [place] for prescriptions. Patient feels he effectively manages his health at home and plans to return home when medically ready. documented in this encounter [facility] Work Phone: 07-30-2024 Hospital course Narrative [...] Sofie Durbin MD documented in this encounter [facility] Work Phone: 07-30-2024 Hospital Discharge instructions [...] for 2 weeks. documented in this encounter [facility] Work Phone: 07-30-2024 Nurse Note Pt. [...] pt. Did well volume up to 1500ml. [facility] Work Phone: 07-30-2024 Nurse Note Pt. [...] up to 1500ml. documented in this encounter [facility] Work Phone: 07-30-2024 Plan of care [...] saturation per order/standard this shift Outcome: Progressing [facility] Work Phone: 07-30-2024 Miscellaneous Notes The [...] the time being until verified with Urology [employer]SEMBLER/PA or Dr. Durbin in the morning. Operative Note Location: [place], [place] Date: 07/29/2024 Jerry Wilson [id number] Surgeon: Sofie Durbin MD Physician Non Invasive Cardiologist: None Pre-operative diagnosis: Right nephrolithiasis, calyceal diverticulum [...] to dilating the tract up to 30 Ghanaian I decided to begin with a mini [...] 07/29/2024 6:50 PM documented in this encounter [facility] Work Phone: 07-30-2024 Plan of care note Was notified by RN that patient's urine remains ovalle red/pink in color this morning, there is an order to remove Verdin at 0600, but due to continued hematuria will have to confirm with urology in the morning if verdin should be removed. Verdin to remain in place for the time being until verified with Urology [employer]SEMBLER/PA or Dr. Durbin in the morning. [facility] Work Phone: 07-29-2024 Surgery Surgical operation note Operative Note Location: [facility] [place], [place] Date: 07/29/2024 Jerry Wilson [id number] Surgeon: Sofie Durbin MD Physician Non Invasive Cardiologist: None Pre-operative diagnosis: Right nephrolithiasis, calyceal diverticulum [...] to dilating the tract up to 30 Ghanaian I decided to begin with a mini [...] Sofie Durbin MD, MD 07/29/2024 6:50 PM [facility] Work Phone: 07-29-2024 Attending History and [...] upper pole. Source Note - Natalia To APRN-SPRAYER MACHINE - 07/19/2024 9:45 AM EDT Images from [...] No filed at 07/19/2024 1009 History of CO 0 filed at 07/19/2024 1009 History of [...] Index Calculator .1818 filed at 07/19/2024 1009 [id number] Stroke Risk Points Current as of just now N/A 0 to 9 Points: Last Change: N/A The [id number] risk score (Lip WALLY, et al. 2009. 2010 [employer]) quantifies the risk [...] History of ischemic heart disease (History of CO, History of positive exercuse test, Current chest [...] working well, or seeing a kidney doctor (machine engineer)? If yes, was this for kidney stones [...] surgery *See risk scores as previously documented [facility] Work Phone: 07-29-2024 History and physical [...] No filed at 07/19/2024 1009 History of CO 0 filed at 07/19/2024 1009 History of [...] Index Calculator .1818 filed at 07/19/2024 1009 [id number] Stroke Risk Points Current as of just now N/A 0 to 9 Points: Last Change: N/A The [id number] risk score (Lip WALLY, et al. 2009. 2010 [employer]) quantifies the risk [...] History of ischemic heart disease (History of CO, History of positive exercuse test, Current chest [...] working well, or seeing a kidney doctor (machine engineer)? If yes, was this for kidney stones [...] been discussed with the patient and/or their bilingual inside sales representative. All questions answered and they agree to proceed. [facility] Work Phone: 07-29-2024 Miscellaneous Notes Interventional Radiology Brief Postprocedure Note Attending: Radhames Romero MD Physician Non Invasive Cardiologist: none Diagnosis: 1. Calculus of kidney IR [...] been discussed with the patient and/or their bilingual inside sales representative. All questions answered and they agree to proceed. documented in this encounter [facility] Work Phone: 07-29-2024 Surgery Postoperative evaluation and management note Interventional Radiology Brief Postprocedure Note Attending: Radhames Romero MD Physician Non Invasive Cardiologist: none Diagnosis: 1. Calculus of kidney IR [...] or complication and is in stable condition. [facility] Work Phone: 05-24-2024 Hospital Discharge instructions [...] including vitamins, herbs, eye drops, creams, and atmr-wqj-xpjynmq medicines. Any problems you or family members [...] unless your provider tells you to. ?Taking xhwu-hlg-nvfstsy medicines, vitamins, herbs, and supplements. Tests You [...] provider. Document Revised: 12/27/2022 Document Reviewed: 12/27/2022 [employer] Patient Education 2023 [employer] 05/24/2024 10:25:38 Percutaneous Nephrolithotomy Percutaneous Nephrolithotomy [...] including vitamins, herbs, eye drops, creams, and phsg-szk-xbtgifq medicines. Any problems you or family members [...] unless your provider tells you to. Taking vmcp-lql-gysdutj medicines, vitamins, herbs, and supplements. Tests You [...] provider. Document Revised: 12/26/2022 Document Reviewed: 12/26/2022 [employer] Patient Education 2023 [employer]. Follow Up Care 03/30/2024 10:32:55 With:POLY ISIDRO, Alex Cohen, GABEL Address: [address] [place] [address] [place], [place] [id number]- When: Unknown [facility] Renetta 05-24-2024 Note Patient Education Nephrology Laser [...] including vitamins, herbs, eye drops, creams, and ydul-bfk-hnlsqyu medicines. ??? Any problems you or family [...] your provider tells you to. ? Taking jkjo-env-ysqvfvb medicines, vitamins, herbs, and supplements. Tests ??? [...] This helps yo (more content not included)... [facility] 03-30-2024 Hospital Discharge instructions Patient Education 03/30/2024 16:23:00 Kidney Stones, Chbv-xt-Welp Kidney Stones Kidney stones are rock-like masses [...] Follow these instructions at home: Medicines Take upgo-ves-nomgumg and prescription medicines only as told by [...] provider. Document Revised: 12/20/2022 Document Reviewed: 12/20/2022 [employer] Patient Education 2023 [employer]. Follow Up Care 03/16/2024 13:13:27 With:POLY ISIDRO, Alex Cohen, URL Address: [facility] [email or web address] [place] [id number]- When:Within 6 Week(s) [facility] 03-30-2024 Note Urology Office/Clini c Note Chief [...] next ov. Ordered: HgbA1c Lab Specimen Collect [id number] PSA Total Urnls Dip Stick Auto w/o Microscopy POC [id number] 4. Kidney stone (N20.0: Calculus of kidney) KUB done 01/23/23 showing Rt. nephrolithiasis with 1.1 cm stone projected over the pelvis, cannot r/o UPJ stone. CT done 01/29/23 - no hydro, +R stones (no details on size/location). -update imaging w/ KUB+KEVYN. Return to discuss possible stone tx w . Ordered: [id number] Measure Post Void residual urine and/or bladder capacity by US- non-imaging HgbA1c Lab Specimen Collect [id number] PSA Total US Renal XR Abdomen 1 View 5. Diabetes (E11.9: Type 2 diabetes mellitus without complications) A1C 7.5 done 08/10/22 Not sure of his DM meds. Discussed DM effect on LUTS. -A1c drawn IO today. Ordered: HgbA1c Lab Specimen Collect [id number] PSA Total 6. ED (erectile dysfunction) (N52.9: [...] day(s), # 60 cap(s), Refills(s) 11, Pharmacy: [facility] #[id number], 180, cm, 03/30/24 9:46:00 EST, Height/Length Dosing, 149.8, kg, 03/30/24 9:46:00 EST, Weight Dosing Follow-up With When Contact Information POLY ISIDRO, Alex P, URL In [address] [place] [id number]- Additional Instructions: Patient Education Kidney Stones, Mpdh-wl-Trcv Problem List/Past Medical History Ongoing Abnormal abdominal CT scan BMI 50.0-59.9, adult BPH with obstruction/lower urinary tract symptoms Diabetes ED (erectile dysfunction) Frequent UTI Hepatic steatosis Hepatomegaly History of nephrolithiasis HTN (hypertension) Hypercholesteremia Hyperplastic rectal polyp Interstitial lung disease LLQ abdominal pain Mediastinal lymphadenopathy Mediastinal lymphadenopathy Morbid obesity Obstructive sleep apnea syndrom (more content not included)... [facility] Comment on above: Result Comment: [...] these instructions at home: Medicines ??? Take rhxi-ilk-jpvdoaj and prescription medicines only as told by [...] provider. Document Revised: 12/20/2022 Document Reviewed: 12/20/2022 [employer] Patient Education ? 2023 [employer]. [facility] 11-22-2020 History of Present illness Narrative Mr. Wilson is a 50 y.o man, never a smoker, being evaluated for dyspnea on exertion and sarcoidosis.PCP: Dr. Pereira: Dr. Jaimes (pulmonary in Lane)HPI:11/22/2020: At baseline, he had no dyspnea on [...] He was started on prednisone by his activities coordinator in July. He initially felt slightly improved but shortly started worsening again. 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 Has known exposure to asbestos, silica or [...] body habitus. ?RV enlargement but preserved RV uccqlmjl92/13/2020 -> NM stress test with No ischemia, normal wall motion, lower normal EF, left ventriculomegalyLabs:None on record [facility] [facility] Work Phone: 11-22-2020 History of Present illness Narrative Mr. Wilson is a 50 y.o man, never a smoker, being evaluated for dyspnea on exertion and sarcoidosis.PCP: Dr. Pereira: Dr. Jaimes (pulmonary in Lane)HPI:11/22/2020: At baseline, he had no dyspnea on [...] He was started on prednisone by his activities coordinator in July. He initially felt slightly improved but shortly started worsening again. 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 Has known exposure to asbestos, silica or [...] lower normal EF, left ventriculomegalyLabs:None on record [facility] Work Phone: 11-22-2020 History of Present illness Narrative Mr. Wilson is a 50 y.o man, never a smoker, being evaluated for dyspnea on exertion and sarcoidosis.PCP: Dr. Pereira: Dr. Jaimes (pulmonary in Lane)HPI:11/22/2020: At baseline, he had no dyspnea on [...] He was started on prednisone by his activities coordinator in July. He initially felt slightly improved but shortly started worsening again. 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 Has known exposure to asbestos, silica or [...] body habitus. ?RV enlargement but preserved RV etqmjovh35/13/2020 -> NM stress test with No ischemia, normal wall motion, lower normal EF, left ventriculomegalyLabs:None on record [facility] Work Phone: 11-22-2020 History of Present illness Narrative Mr. Wilson is a 50 y.o man, never a smoker, being evaluated for dyspnea on exertion and sarcoidosis.PCP: Dr. Pereira: Dr. Jaimes (pulmonary in Lane)HPI:11/22/2020: At baseline, he had no dyspnea on [...] He was started on prednisone by his activities coordinator in July. He initially felt slightly improved but shortly started worsening again. 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 Has known exposure to asbestos, silica or berylliumCTD evaluation: No hx of joint pain/swelling, skin rashes, Raynaud's, sicca syndrome, eye redness, muscle pain and weakness, difficulty swallowing.Family History:No family history of lung diseases or cancerImaging history: (I have personally reviewed the imaging below)12/15/2020 HRCT with hilar/mediastinal ADP but clear jnysxdjtxr41/24/2021: CTPE with hilar/mediastinal ADP but clear parenchymaPFTs:01/12/2021 -> Ratio of 0.77/FEV1 3.67L (74%) (no BD response)/FVC 2.82L (72%)/TLC 76%/RVtoTLC ratio 0.42/DLCO 89%6 MWTs:01/12/2021->on RA, 191 m. Peak SpO2 of 95%. Gary SpO2 92%. (HR went up from 85 to 120 and BP from 150-202 systolic)Lung biopsy: None on recordEcho:12/15/2020 -> Normal EF, no diastolic dysfunction, with normal LA, RV size and aaplkcnm07/24/2020 -> difficult to interpret images, probably 2/2 body habitus. ?RV enlargement but preserved RV /13/2020 -> NM stress test with No ischemia, normal wall motion, lower normal EF, left ventriculomegalyLabs:CBC with lymphopenia (590)low 25 [place] vitamin D but high 1-25 [place] vitamin D, elevated 24hr urine calcium without hematuria [facility] [facility] Work Phone: Evaluation + Plan note No data available for this section General Surgery [place] Evaluation + Plan note Future Appointments Appointment Date:05/24/2024 09:30:00 AM Scheduled Provider:POLY ISIDRO, Alex Cohen Location:formerly [facility] Appointment Type:URO Office Visit [facility] Evaluation + Plan note [facility] Evaluation note No Information Formerly [facility] [employer] Other Evaluation note Diagnosis Calculus of kidney documented in this encounter [facility] Work Phone: Evaluation note* Diagnosis Right kidney stone- Primary Kidney stone Calculus of kidney Calculus of kidney Right kidney stone Preop general physical exam- Primary Other specified pre-operative examination Kidney stone Calculus of kidney Preop examination Unspecified pre-operative examination documented in this encounter [facility] Work Phone: History general Narrative - Reported* Type Description Date Medical History Hypertension Medical History hypercholesterolemia Medical History back pain Medical History rotator cuff tear Surgical History rotator cuff Surgical History back surgery X2 Hospitalization History see above [facility] Other Hospital Discharge instructions No data available for this section General Surgery [place] Progress note No data available for this section General Surgery [place] Reason for referral (narrative) Referred by: POLY ISIDRO, Alex Cohen [facility] Reason for visit Narrative* Auth/Cert (Routine) Specialty Diagnoses / Procedures Referred By Amber lemus Referred To Contact Diagnoses Calculus of kidney Calculus of kidney [N20.0] Procedures OR PERQ NL/PL LITHOTRP SIMPLE UP TO 2 CM 1 LOCATION OR PLMT NEPHROSTOMY CATH PRQ NEW ACCESS RS&I OR NJX PX ANTEGRDE NFROSGRM &/URTRGRM NEW ACCESS NEPHROLITHOTOMY, PERCUTANEOUS W/HOLMIUM LASER, NEPH TUBE PLACEMENT IN I.R. AT: 1000 AM NEPHROLITHOTOMY, PERCUTANEOUS W/HOLMIUM LASER, NEPH TUBE PLACEMENT IN I.R. AT: 1000 AM NEPHROLITHOTOMY, PERCUTANEOUS W/HOLMIUM LASER, NEPH TUBE PLACEMENT IN I.R. AT: 1000 [place] [address] [address] [address] Phone: tel: fax: [place] [address] [place] [address] fax: Referral ID Status Reason Start Date Expiration Date Visits Re quested Visits Authorized [id number] 1 1 [facility] Work Phone: Summary Purpose Family History [...] section and content) DATE CREATED AUTHOR 05/08/2018 [facility] DATE CREATED AUTHOR AUTHOR'S ORGANIZ ATION 01/14/2021 [employer] DATE CREATED AUTHOR AUTHOR'S ORGANIZ ATION 07/30/2021 [facility] DATE CREATED AUTHOR AUTHOR'S ORGANIZ ATION 09/19/2022 [facility] DATE CREATED AUTHOR AUTHOR'S ORGANIZ ATION 04/02/2024 [facility] DATE CREATED AUTHOR AUTHOR'S ORGANIZ ATION 04/06/2024 [facility] DATE CREATED AUTHOR AUTHOR'S ORGANIZ ATION 07/03/2024 [facility] DATE CREATED AUTHOR AUTHOR'S ORGANIZ ATION 07/30/2024 [facility] DATE CREATED AUTHOR AUTHOR'S ORGANIZ ATION 08/14/2024 [facility] REASON FOR VISIT (unrecogniz ed section and content) NAUSEAUS, HAVING PROBLEMS UR INATING, AND IT IS DARK Patient Care team informatio n (unrecognized section and content) Personnel Name: Doron Zuñiga MD Address: Address: [address] [place] [address] Personnel Name: Doron Zuñiga MD Address: Address: [address] [place] [address] Personnel Name: Doron Zuñiga MD Address: Address: [address] [place] [address] Personnel Name: Doron Zuñiga MD Address: Address: [address] [place] [address] Personnel Name: Doron Zuñiga MD Address: Address: [address] [place] [address] Scheduled Active and Recently Administ ered Medications [...] (Anesthesia Volume Adjustment - Provider: Glendy Segura APRN-FOOD ASSEMBLER KITCH[employer]) ceFAZolin (Ancef) 2 g in dextrose (iso) [...] mg (COMPLETED) 2 mg, intravenous, Once, On Ihllary 07/29/24 at 1430, For 1 dose, Preprocedure [...] BE BASED ON THE PRIMARY CLINICAL RECORDS. [employer] provides no warranty or guarantee of the accuracy or completeness of information in this document.
--- NOTE | 2024-08-22 16:44 | P.HP_ITS ---
HPI H&P: HPI History of Present Illness Chief complaint: SEPSIS RT OYELONEPHRITIS Narrative: About 3 weeks ago patient was to have a stent placed but not placed the opted for a percutaneous nephrostomy tube, unfortunately to presented up in the wrong location was removed, ureteral stent was then placed after that, over the last day has noticed increasing fatigue, heart racing, and fever this morning, presented to the emergency room and found to have tachycardia, fever, respiratory distress, uncontrolled hypertension leukocytosis and lactic acidosis consistent with sepsis, severe I saw patient up in the medical surgical floor doing remarkably better, has been given 3 L of fluids his heart rate is now less than 100, blood pressure was starting to diminish but is improved Opioid HPI Opioid Management Most Recent Pain and Opioid Data: Last Pain Scale 5 08/22/24 15:50 08/22/24 Last MAR Pain Assessment 08/22/24 15:50 Last ORT Total Score 0 08/22/24 16:35 08/22/24 Last ORT Risk Category Low Risk 08/22/24 16:35 08/22/24 Review of Systems ROS Status of ROS 10 or more systems reviewed and unremark able except as noted in history and below Cardiovascular Denies: chest pain, palpitations, edema or swelling of feet/ankles Respiratory Reports: shortness of breath; Denies: cough or wheezing PFSH PFSH Medical History (Updated 08/22/24 @ 17:54 by Gama Camacho MD) Hx of diabetes mellitus ?Z86.39 - Personal history of other endocrine, nutritional and metabolic disease (ICD-10) Ureteral stent present ?Z96.0 - Presence of urogenital implants (ICD-10) Fusion of lumbar spine ?M43.26 - Fusion of spine, lumbar region (ICD-10) Vitamin D deficiency ?E55.9 - Vitamin D deficiency, unspecified (ICD-10) Sarcoidosis ?D86.9 - Sarcoidosis, unspecified (ICD-10) Rectal bleeding ?K62.5 - Hemorrhage of anus and rectum (ICD-10) Obstructive sleep apnea ?G47.33 - Obstructive sleep apnea (adult) (pediatric) (ICD-10) Obesity ?E66.9 - Obesity, unspecified (ICD-10) LAD (lymphadenopathy), mediastinal ?R59.0 - Localized enlarged lymph nodes (ICD-10) Abdominal pain ?R10.9 - Unspecified abdominal pain (ICD-10) Interstitial lung disease ?J84.9 - Interstitial pulmonary disease, unspecified (ICD-10) Hypercholesteremia ?E78.00 - Pure hypercholesterolemia, unspecified (ICD-10) Hypertension ?I10 - Essential (primary) hypertension (ICD-10) Nephrolithiasis ?N20.0 - Calculus of kidney (ICD-10) Hepatomegaly ?R16.0 - Hepatomegaly, not elsewhere classified (ICD-10) Hepatic steatosis ?K76.0 - Fatty (change of) liver, not elsewhere classified (ICD-10) Diabetes ?E11.9 - Type 2 diabetes mellitus without complications (ICD-10) Surgical History History of arthroscopy of knee ?Z98.890 - Other specified postprocedural states (ICD-10) History of lumbar fusion ?Z98.1 - Arthrodesis status (ICD-10) Status post lateral meniscus repair ?Z98.890 - Other specified postprocedural states (ICD-10) H/O arthroscopy of shoulder ?Z98.890 - Other specified postprocedural states (ICD-10) Social History Within the past year, how often did you have a drink containing alcohol: never Score interpretation: A score less than 4 is consistent with normal alcohol consumption. 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 Known occupational exposures/hazards: No Highest level of school completed/degree received: some college, no degree Meds Home Medications and Allergies Home Medications ?Medication ?Instructions ?Recorded ?Confirmed ?Type metoprolol tartrate 100 mg tablet 100 mg PO BID 03/31/23 08/22/24 History oxaprozin 600 mg tablet 1,200 mg PO DAILY 03/31/23 08/22/24 History paroxetine HCl 40 mg tablet 60 mg PO DAILY 03/31/23 08/22/24 History irbesartan 150 mg tablet 150 mg PO DAILY 08/22/24 08/22/24 History simvastatin 40 mg tablet 40 mg PO .QHS 08/22/24 08/22/24 History tamsulosin 0.4 mg capsule 0.8 mg PO DAILY 08/22/24 08/22/24 History tizanidine 4 mg tablet 8 mg PO .QHS 08/22/24 08/22/24 History Allergies Allergy/AdvReac Type Severity Reaction Status Date / Time No Known Drug Allergies Allergy Verified 03/31/23 14:31 Exam Constitutional Vital Signs, click to edit/add: Last Vital Signs Temp 98.2 F 08/22/24 14:25 Pulse 100 H 08/22/24 15:50 Resp 19 08/22/24 15:50 BP 100/60 08/22/24 16:20 Pulse Ox 97 08/22/24 15:50 O2 Del Method Room Air 08/22/24 15:29 Documenting provider has reviewed patient's vital signs: yes Common normals: no apparent distress Chest Common normals: inspection of chest normal Respiratory Common normals: normal respiratory effort, no retractions and clear to auscultation bilaterally Effort & inspection: non tachypneic Auscultation: no rhonchi and no wheezes Cardio Common normals: regular rhythm and no murmurs; irregular rate Rate: tachycardic GI Common normals: Normal to inspection, nondistended, normoactive bowel sounds present and soft to palpation; tender (Minimal diffuse tenderness) Extremity Common normals: normal to inspection, full ROM and no clubbing, cyanosis or edema Neuro Common normals: oriented x3, CN's II-XII intact bilaterally, moves all extremities and no focal motor deficits Results Labs Labs: Short CBC 08/22/24 Range/Units 12:33 WBC 23.7 H (4.0-11.0) 10^3/uL Hgb 15.8 (14.0-18.0) g/dL Hct 44.9 (42.0-54.0) % Plt Count 199 (150-450) 10^3/uL BMP 08/22/24 12:24 Sodium 126 L Potassium 3.9 Chloride 89 L Carbon Dioxide 13.8 L BUN 23.0 H Creatinine 1.90 H Glucose 390 H Calcium 9.5 Liver Function 08/22/24 Range/Units 12:24 Total Bilirubin 2.1 H (0.2-1.0) mg/dL AST 174 H (15-37) U/L ALT 74 H (16-63) U/L Alkaline Phosphatase 113 (46-116) U/L Albumin 3.3 L (3.4-5.0) g/dL Urine 08/22/24 Range/Units 14:20 Urine Color [place] A (YELLOW) Urine Clarity Sl cloudy (CLEAR) Urine pH 6.0 (5.0-9.0) Ur Specific [address] 1.020 (1.005-1.025) Urine Protein >=300 A (NEG/TRACE) mg/dL Urine Glucose (UA) >=1000 A (NEGATIVE) mg/dL ABG ABG results: 08/22/24 12:33 VBG pH 7.441 H VBG pCO2 16.8 L Assessment and Plan Assessment and Plan (1) Severe sepsis: (2) Leukocytosis: (3) Bandemia: (4) Lactic acidosis: (5) Tachypnea: (6) Hypotension: (7) Hx of diabetes mellitus: (8) Ureteral stent present: (9) Obstructive sleep apnea: (10) Obesity: (11) Abdominal pain: (12) Interstitial lung disease: (13) Hypertension: (14) Hepatic steatosis: (15) Diabetes: (16) Pyelonephritis: (17) Respiratory distress: (18) Acute kidney injury: (19) Coagulopathy: (20) Hyponatremia: (21) Hypomagnesemia: (22) Elevated liver function tests: (23) Acute non-ST elevation myocardial infarction (NSTEMI): (24) Acute urinary retention: (25) Sinus tachycardia: Plan Admission findings: Fever, greater than 101, sinus tachycardia greater than 140, respiratory distress, initially uncontrolled hypertension and then hypotension with systolics in the 90s, leukocytosis with bandemia, hyponatremia and acute kidney injury (baseline creatinine of 1.06, admission creatinine of 1.90 this is 179.2% above baseline) uncontrolled diabetes mellitus, lactic acidosis, coagulopathy with elevated liver function test, acute elevation in high- sensitivity troponin with acute elevation in BNP with normal EKG consistent with acute NSTEMI due to pyelonephritis with recent instrumentation and ureteral stent in place, resulting in severe sepsis Lactic acidosis and severe sepsis secondary to pyelonephritis-Zosyn and levofloxacin to double cover gram-negative's, consider aminoglycoside but with kidney elevation would prefer to hold off, as needed fluid boluses per MAP less than 65, if blood pressure diminishes consider adding hydrocortisone also Sinus tachycardia secondary to severe sepsis that is resulted in acute NSTEMI type II repeat EKG in a.m., consider echocardiogram Acute elevation in BNP this is possibly related to the tachycardia and the sepsis and the acute kidney injury, repeat in a.m., no peripheral edema lungs are clear Hyponatremia secondary to the severe dehydration and sepsis-IV hydration with normal saline Poorly controlled diabetes mellitus-insulin sliding scale Hypomagnesemia-supplement Acute elevation of the liver function test with acute elevation in INR consistent with sepsis with coagulopathy-repeat in a.m. BPH with acute urinary retention-Verdin catheter in place, consider ultrasound kidneys tomorrow Chronic diarrhea-will check stool studies Sarcoidosis-no hypoxia, monitor closely Hypertension by history-hold off on blood pressure medications Generalized arthritis-hold off on NSAIDs Low back pain-continue with tizanidine Hypercholesterolemia will hold off on medication currently with elevated liver function test Depression-continue with home medications Morbid obesity with sleep apnea-use home machine Admission status: Patient with severe sepsis secondary to pyelonephritis with significant lactic acidosis and bandemia, medically necessary treatment will span 2 midnights, likely here for 4 days, inpatient status in the stepdown unit Urinary Catheter Management Urinary Catheter Management Urethral: Cath placed during this visit: yes Urethral indwelling: Yes Reason for continuing: acute urinary retention Insertion date: 08/22/24 Insertion time: 15:00
[2024-08-22 17:25] LABS: Amylase 44 U/L (25-115)
[2024-08-22 17:27] LABS: Troponin I High Sensitivity 186.9 pg/mL (4.0-76.1)
[2024-08-22] MEDS: PANTOPRAZOLE SODIUM 40 MG VIAL IV (17:33)
[2024-08-22] MEDS: LEVOFLOXACIN IN DEXTROSE 5 % 750 MG/150 ML PREMIX 100 MG IV (17:34)
[2024-08-22] MEDS: 0.9 % SODIUM CHLORIDE 1,000 ML 125 ML IV (17:34)
[2024-08-22] MEDS: INSULIN ASPART 300 UNIT/3 ML PEN SUBQ ×2 (17:51→21:18)
--- NOTE | 2024-08-22 18:45 | ECG_ITS ---
[facility] Test Date: 2024-08-22 Pat Name: JERRY RESTREPO Department: Room: [facility] Gender: Male Home Health Clinician: : 1970 Requested By: DORON ZUÑIGA Order Number: [id number] Reading MD: BO PARTIDA M.D. Measurements Intervals [place] Rate: 98 P: 56 AK: 136 QRS: -9 QRSD: 110 T: 49 QT: 378 QTc: 433 Interpretive Statements 1100 Sinus rhythm 9110 normal ECG Compared to ECG 08/22/2024 13:25:07 Sinus tachycardia no longer present Electronically Signed On 08-23-2024 7:38:33 EDT by BO PARTIDA M.D.
[2024-08-22 19:07] LABS: ABG PCO2 29.8 mmHg (35.0-45.0); Base Excess ABG -4.9 mmol/L (-2.0-2.0); HCO3 ABG 19.5 mmol/L (22.0-26.0); Oxygen Saturation ABG 96.3 %; PO2 ABG 76.3 mmHg (80.0-100.0); pH ABG 7.423 (7.350-7.450)
[2024-08-22 19:08] LABS: Allen Test POSITIVE (POSITIVE); O2 Mode ROOM AIR; Puncture Site L RADIAL
--- NOTE | 2024-08-22 19:14 | PC.NURSE ---
At 1835 patient was ambulating back from the toilet he became short of breath, lips turned blue, and fingernails are blue. Got patient back in the bed fingernails and lips are still discolored. His pulse ox is reading 96% on room air. EKG done, Dr. Camacho notified, orders received for ABGs.
[2024-08-22 20:26] LABS: Troponin I High Sensitivity 181.9 pg/mL (4.0-76.1)
[2024-08-22 20:27] LABS: Lactate/Lactic Acid 2.9 mmol/L (0.4-2.0)
[2024-08-22 20:58] LABS: Glucometer 271 mg/dL (74-106)
[2024-08-22] MEDS: PIPERACILLIN SODIUM/TAZOBACTAM 3.375 GM in 0.9 % SODIUM CHLORIDE 50 ML IV (21:20)
[2024-08-22] MEDS: TIZANIDINE HCL 4 MG TABLET 8 MG PO (21:21)
[2024-08-22] MEDS: ENOXAPARIN SODIUM 40 MG/0.4 ML SYRINGE SUBQ (21:21)
[2024-08-22] MEDS: ACETAMINOPHEN 500 MG TABLET 1000 MG PO (21:21)
[2024-08-22] MEDS: 0.9 % SODIUM CHLORIDE 1,000 ML 500 ML IV (23:20)
[2024-08-23] VITALS (93 sets, daily range): BP systolic 56–147; BP diastolic 0–95; PULSE 82–117; TEMP 37–37.5; O2SAT 90–98
[2024-08-23] MEDS: ALBUMIN HUMAN 25 GM/100 ML PREMIX IV ×2 (01:09→02:31)
[2024-08-23] MEDS: 0.9 % SODIUM CHLORIDE 1,000 ML 500 ML IV ×2 (01:42→07:58)
--- NOTE | 2024-08-23 02:12 | PC.NURSE ---
230 This RN notified of BP 59/32. Patient resting with home CPAP on. Easily aroused with verbal stimuli. Denies complaints, pain or symptoms of hypotension.s 2310 Avelina Linares [employer] slab conditioner supervisor Hospitalist updated on patient VS. New order received for IVF bolus and initiated. 2311 IV initiated left forearm, 20 gauge per D. Shuff RN 2320 Continued hypotension and being monitored closely by this RN. 0030 BP remains 60/doppler. Patient denies complaints. Alert and oriented and been watching videos in bed while on phone. IVF bolus continues. Jorge Linares [employer] Hospitalist slab conditioner supervisor updated on VS and patient condition. New orders received.
[2024-08-23] MEDS: NOREPINEPHRINE BITARTRATE/D5W 4 MG/250 ML PREMIX 15 MG IV (03:45)
[2024-08-23] MEDS: 0.9 % SODIUM CHLORIDE 1,000 ML 125 ML IV ×3 (03:45→19:31)
[2024-08-23] MEDS: PIPERACILLIN SODIUM/TAZOBACTAM 3.375 GM in 0.9 % SODIUM CHLORIDE 50 ML IV ×3 (05:33→21:06)
[2024-08-23 06:17] LABS: Basophils Percent Auto 0.3 % (0.2-2.0); Eosinophils Absolute Auto 0.4 10^3/uL (0.0-0.7); Eosinophils Percent Auto 3.7 % (0.9-7.0); Hematocrit 35.9 % (42.0-54.0); Hemoglobin 12.2 g/dL (14.0-18.0); Immature Granulocytes Abs Auto 0.12 10^3/uL (0.00-0.03); Lymphocytes Absolute Auto 0.5 10^3/uL (1.2-3.8); Lymphocytes Percent Auto 4.1 % (20.5-60.0); Mean Corpuscular Hemoglobin 29.4 pg (25.9-34.0); Mean Corpuscular Volume 86.5 fL (80.0-94.0); Mean Platelet Volume 11.8 fL (9.5-13.5); Monocytes Absolute Auto 1.3 10^3/uL (0.3-0.8); Neutrophils Absolute Auto 9.5 10^3/uL (1.4-6.5); Neutrophils Percent Auto 79.9 % (43.0-75.0); Platelet Count 117 10^3/uL (150-450); Red Blood Count 4.15 10^6/uL (4.70-6.10); Red Cell Distribution Width 13.1 % (11.0-15.0); White Blood Count 11.9 10^3/uL (4.0-11.0)
[2024-08-23 06:21] LABS: PCO2 VBG 34.8 mmHg (40.0-52.0); pH VBG 7.357 (7.330-7.430)
[2024-08-23 06:35] LABS: INR 1.05; Partial Thromboplastin Time 32.5 sec (22.3-36.2); Prothrombin Time 11.1 sec (9.0-11.6)
[2024-08-23 06:46] LABS: Alanine Aminotransferase 60 U/L (16-63); Albumin Globulin Ratio 0.8; Albumin Level 3.1 g/dL (3.4-5.0); Alkaline Phosphatase 59 U/L (46-116); Anion Gap 19.6; Aspartate Amino Transferase 135 U/L (15-37); BUN Creatinine Ratio 12.2; Bilirubin Total 1.7 mg/dL (0.2-1.0); Calcium 8.7 mg/dL (8.5-10.1); Carbon Dioxide 19.4 mmol/L (21.0-32.0); Chloride 98 mmol/L (98-107); Estimated GFR (African America 24 (>=60 mL/min/1.73m^2); Estimated GFR (Non-African Ame 19 (>=60 mL/min/1.73m^2); Globulin 3.7 g/dL; Glucose 226 mg/dL (74-106); Sodium 133 mmol/L (136-145); Total Protein 6.8 g/dL (6.4-8.2)
[2024-08-23] MEDS: HYDROCORTISONE SODIUM SUCC PF 100 MG/2 ML VIAL IVP ×3 (06:58→21:33)
--- NOTE | 2024-08-23 07:45 | US_ITS ---
The [address] [address] Patient Name: JERRY RESTREPO MRN: [id number] date: 1970 Sex: M Assigned Patient Location: MS Current Patient Location: MS Accession/Order Number: [id number] Exam Date: 08/23/2024 09:09 Report Date: 08/23/2024 09:23 At the request of: DORON ZUÑIGA MD Procedure: US renal BI BILATERAL RENAL AND BLADDER ULTRASOUND CLINICAL HISTORY: JESSY, possible hydronephrosis. Recent right sided stone and stent placement. COMPARISON: CT 08/22/2024 Estimation of renal size is approximately 14.0 cm on the right and 15.8 cm on the left. The right internal ureteral stent is visualized. There is a hyperechoic area within the right kidney measuring over 4 cm in size. This may correlate with the large stone or clustered stones seen on the recent CT exam. No other hydronephrosis is suspected. There might be a parapelvic right renal cyst measuring approximately 2.8 cm in size. There is no perinephric fluid. The urinary bladder contains a Verdin catheter and is not distended for evaluation. US/US renal BI IMPRESSION: RIGHT NEPHROLITHIASIS. NO HYDRONEPHROSIS. VISUALIZATION OF PATIENT'S RIGHT INTERNAL URETERAL STENT Impression dictated by: Daphne Hutchinson M.D.08/23/2024 9:23 AM Dictation Location: [place] [address] Electronically authenticated by: [id number] Y Date: 08/23/2024 09:23
--- NOTE | 2024-08-23 07:45 | CA_ITS ---
Patient Name: JERRY RESTREPO MR#: [id number] : 1970 Exam Date: 08/23/2024 Ordering Doctor: DR Gama Camacho . ECHOCARDIOGRAM REPORT PROCEDURE: CA ECHO LIMITED INDICATIONS: NSTEMI COMPARISON: None. DESCRIPTION: Limited ECHOCARDIOGRAM Real-time transthoracic echocardiography with 2D and M-mode performed. QUALITY: Technical quality was good. Limited echocardiogram per physician order. LEFT VENTRICLE: Normal chamber size. Moderate concentric left ventricular hypertrophy. LV EF: Global left ventricular systolic function is normal; visually estimated ejection fraction is 55%. Abnormal septal motion may be related to underlying bundle branch block. LEFT ATRIUM: Normal chamber size. RIGHT ATRIUM: Moderate dilatation. RIGHT VENTRICLE: Poorly seen. Mild dilatation. Systolic function appears reduced. TRICUSPID VALVE: Normal mobility and thickness. MITRAL VALVE: Normal mobility and thickness. There is no mitral annular calcification. AORTIC VALVE: Normal trileaflet appearance. No visible sclerosis. Normal leaflet mobility. AORTIC ROOT: Normal diameter and appearance. Ascending aorta is normal in size. PULMONIC VALVE: Poorly seen. PERICARDIUM: No evidence of pericardial effusion. IVC: IVC is dilated (3.0cm), does not collapse. CONCLUSION: 1. Global left ventricular systolic function is difficult to assess but appears preserved; visually estimated ejection fraction is 55 to 60% 2. The right ventricle is poorly seen; it appears mildly dilated with reduced systolic function 3. Moderate left ventricle hypertrophy 4. The right atrium is dilated A Limited echocardiogram was performed Adult Echocardiography Procedure Report Left Ventricle LVEDD (3.7 - 5.6 cm): 5.13 cm LVESD (2.2 - 4.0 cm): 4.20 cm LVIVS thickness (0.6 - 1.2 cm): 1.60 cm LVPW thickness (0.5 - 1.0 cm): 1.49 cm LVOT Diameter 2.58 cm Left Atrium LA Volume Index (2D A2C): 28.67 ml/m2 Left Atrium Systolic Dimension: 5.02 cm Mitral Valve Right Ventricle Aorta AO Root Diam: 3.30 cm Ascending Ao Diam: 3.10 cm Aortic Valve Tricuspid Valve Pulmonic Valve Right Atrium Right Atrium Systolic Pressure: 76.97 ml, 76.97 ml Dictated by: Marilia Perez M.D. on 08/23/2024 at 14:35 Approved by: Marilia Perez M.D. on 08/23/2024 at 14:38
[2024-08-23 07:46] LABS: Glucometer 245 mg/dL (74-106)
--- NOTE | 2024-08-23 07:47 | XR_ITS ---
The [place] [id number] Patient Name: JERRY RESTREPO MRN: [id number] date: 1970 Sex: M Assigned Patient Location: MS Current Patient Location: MS Accession/Order Number: [id number] Exam Date: 08/23/2024 08:23 Report Date: 08/23/2024 08:30 At the request of: DORON ZUÑIGA MD Procedure: XR chest 1V PORTABLE AP ERECT CHEST 0750 hours CLINICAL HISTORY: hypoxia COMPARISON: 08/22/2024 Evaluation is slightly limited by large body habitus. The heart is top normal in size. There is continued prominence of the mediastinum and jalyn. There is a prior CT chest 02/29/2020 showing adenopathy. There is no vascular congestion. No focal consolidation is noted. There is no effusion or pneumothorax. The osseous structures are intact. XR/XR chest 1V IMPRESSION: POTENTIAL CONTINUED LYMPHADENOPATHY. NO ACUTE PULMONARY FINDINGS Impression dictated by: Daphne Hutchinson M.D.08/23/2024 8:30 AM Dictation Location: [place] [address] Electronically authenticated by: [id number] Y Date: 08/23/2024 08:30
--- NOTE | 2024-08-23 07:50 | P.PN_ITS ---
Progress Note: Subjective Subjective Interval history: Can alert this morning, no complaints, denies shortness of breath just generally weakness, no chest pain Exam Constitutional Vital Signs, click to edit/add: Last Vital Signs Temp 99.5 F 08/23/24 06:30 Pulse 92 H 08/23/24 07:30 Resp 23 H 08/23/24 07:30 BP 98/52 08/23/24 07:16 Pulse Ox 94 L 08/23/24 07:30 O2 Del Method Room Air 08/22/24 19:00 Documenting provider has reviewed patient's vital signs: yes Common normals: no apparent distress (No shortness of breath) HENMT Common normals: normocephalic Chest Common normals: inspection of chest normal Respiratory Common normals: normal respiratory effort, no retractions, no use of accessory muscles and clear to auscultation bilaterally Effort & inspection: non tachypneic Auscultation: no rhonchi and no wheezes Cardio Common normals: regular rate, regular rhythm and no murmurs Rate: not tachycardic GI Common normals: soft to palpation; negative for Normal to inspection, nondistended, normoactive bowel sounds present (Obese) and tender (Minimal diffuse tenderness) Extremity Common normals: normal to inspection, full ROM and no clubbing, cyanosis or edema (Still no edema) Neuro Common normals: oriented x3, CN's II-XII intact bilaterally, moves all extremities and no focal motor deficits Progress Note: Objective Labs Labs: Short CBC 08/22/24 08/23/24 Range/Units 12:33 06:02 WBC 23.7 H 11.9 H (4.0-11.0) 10^3/uL Hgb 15.8 12.2 L (14.0-18.0) g/dL Hct 44.9 35.9 L (42.0-54.0) % Plt Count 199 117 L (150-450) 10^3/uL BMP 08/22/24 08/23/24 12:24 06:02 Sodium 126 L 133 L Potassium 3.9 4.0 Chloride 89 L 98 Carbon Dioxide 13.8 L 19.4 L BUN 23.0 H 41.0 H Creatinine 1.90 H 3.37 H Glucose 390 H 226 H Calcium 9.5 8.7 Liver Function 08/22/24 08/23/24 Range/Units 12:24 06:02 Total Bilirubin 2.1 H 1.7 H (0.2-1.0) mg/dL AST 174 H 135 H (15-37) U/L ALT 74 H 60 (16-63) U/L Alkaline Phosphatase 113 59 (46-116) U/L Albumin 3.3 L 3.1 L (3.4-5.0) g/dL Urine 08/22/24 Range/Units 14:20 Urine Color [place] A (YELLOW) Urine Clarity Sl cloudy (CLEAR) Urine pH 6.0 (5.0-9.0) Ur Specific [place] 1.020 (1.005-1.025) Urine Protein >=300 A (NEG/TRACE) mg/dL Urine Glucose (UA) >=1000 A (NEGATIVE) mg/dL Progress Note: A&P Assessment and Plan (1) Severe sepsis: (2) Leukocytosis: (3) Bandemia: (4) Lactic acidosis: (5) Tachypnea: (6) Hypotension: (7) Hx of diabetes mellitus: (8) Ureteral stent present: (9) Obstructive sleep apnea: (10) Obesity: (11) Abdominal pain: (12) Interstitial lung disease: (13) Hypertension: (14) Hepatic steatosis: (15) Diabetes: (16) Pyelonephritis: (17) Respiratory distress: (18) Acute kidney injury: (19) Coagulopathy: (20) Hyponatremia: (21) Hypomagnesemia: (22) Elevated liver function tests: (23) Acute non-ST elevation myocardial infarction (NSTEMI): (24) Acute urinary retention: (25) Sinus tachycardia: Plan Admission findings: Fever, greater than 101, sinus tachycardia greater than 140, respiratory distress, initially uncontrolled hypertension and then hypotension with systolics in the 90s, leukocytosis with bandemia, hyponatremia and acute kidney injury (baseline creatinine of 1.06, admission creatinine of 1.90 this is 179.2% above baseline) uncontrolled diabetes mellitus, lactic acidosis, coagulopathy with elevated liver function test, acute elevation in high- sensitivity troponin with acute elevation in BNP with normal EKG consistent with acute NSTEMI due to pyelonephritis with recent instrumentation and ureteral stent in place, resulting in severe sepsis Lactic acidosis and severe sepsis secondary to pyelonephritis-white blood cell count improving, bandemia resolved, still with significant severe sepsis, on Levophed now, up to 10 mics blood pressures improved with that, added hydrocortisone this morning, repeating fluid boluses Acute renal failure secondary to the above-baseline creatinine 1.06, today's creatinine is 3.37 which is 317.9% above baseline, over 300% above baseline to be consistent with acute renal failure-check ultrasound of kidneys, repeat fluid boluses, repeat labs later this morning Sinus tachycardia secondary to severe sepsis that is resulted in acute NSTEMI type II repeat EKG in a.m.,-check echocardiogram Thrombocytopenia secondary to sepsis-continue to monitor daily no signs of bleeding Acute elevation in BNP this is possibly related to the tachycardia and the sepsis and the acute kidney injury, BNP further elevated today but no signs of heart failure, chest x-ray is clear, lung exam was clear and no peripheral edema, suspect it is related to the acute renal failure, repeat later this morning Hyponatremia secondary to the severe dehydration and sepsis-improving Poorly controlled diabetes mellitus-adjusting sliding scale Hypomagnesemia-supplement Acute elevation of the liver function test with acute elevation in INR consistent with sepsis with coagulopathy-improved this morning BPH with acute urinary retention-Verdin catheter in place, consider ultrasound kidneys tomorrow Chronic diarrhea-will check stool studies Sarcoidosis-no hypoxia, monitor closely Hypertension by history-hold off on blood pressure medications Generalized arthritis-hold off on NSAIDs Low back pain-continue with tizanidine Hypercholesterolemia will hold off on medication currently with elevated liver function test Depression-continue with home medications Morbid obesity with sleep apnea-use home machine Admission status: Patient with severe sepsis secondary to pyelonephritis with significant lactic acidosis and bandemia, medically necessary treatment will span 2 midnights, likely here for 4 days, inpatient status in the stepdown unit Urinary Catheter Management Urinary Catheter Management Urethral: Cath placed during this visit: yes Urethral indwelling: Yes Reason for continuing: acute urinary retention Insertion date: 08/22/24 Insertion time: 15:00
[2024-08-23] MEDS: INSULIN ASPART 300 UNIT/3 ML PEN SUBQ ×4 (07:59→21:16)
--- NOTE | 2024-08-23 08:11 | CM.NOTE ---
Rounds made with Dr. Camacho, no discharge today. Pt will get 2L bolus and repeat labs. OT and PT will also evaluate pt when stable for discharge planning.
[2024-08-23] MEDS: PANTOPRAZOLE SODIUM 40 MG VIAL IV ×2 (08:20→21:07)
[2024-08-23] MEDS: PAROXETINE HCL 20 MG TABLET 60 MG PO (08:20)
[2024-08-23] MEDS: TAMSULOSIN HCL 0.4 MG CAPSULE 0.8 MG PO (08:20)
--- NOTE | 2024-08-23 09:56 | XR_ITS ---
The [address] [address] Patient Name: JERRY RESTREPO MRN: [id number] date: 1970 Sex: M Assigned Patient Location: MS Current Patient Location: MS Accession/Order Number: [id number] Exam Date: 08/23/2024 10:24 Report Date: 08/23/2024 10:25 At the request of: DORON ZUÑIGA MD Procedure: XR chest 1V PA CHEST: CLINICAL HISTORY: picc placement COMPARISON: 08/23/2024 There is a new right-sided PICC line with tip overlying the distal superior vena cava. No developing consolidation, pleural effusion or pneumothorax is noted. The cardiac and mediastinal contours are similar. The bony structures are intact. XR/XR chest 1V IMPRESSION: PICC LINE PLACEMENT, DESCRIBED. NO ACUTE FINDINGS OR CHANGE FROM THE PRIOR. Impression dictated by: Daphne Hutchinson M.D.08/23/2024 10:25 AM Dictation Location: [place] [address] Electronically authenticated by: [id number] Y Date: 08/23/2024 10:25
[2024-08-23] MEDS: NOREPINEPHRINE BITARTRATE/D5W 4 MG/250 ML PREMIX 22.5 MG IV (11:18)
[2024-08-23 11:28] LABS: Glucometer 273 mg/dL (74-106)
[2024-08-23 11:57] LABS: Alanine Aminotransferase 70 U/L (16-63); Albumin Globulin Ratio 0.7; Albumin Level 2.6 g/dL (3.4-5.0); Alkaline Phosphatase 61 U/L (46-116); Anion Gap 19.9; Aspartate Amino Transferase 124 U/L (15-37); BUN Creatinine Ratio 15.4; Bilirubin Total 1.4 mg/dL (0.2-1.0); Calcium 8.6 mg/dL (8.5-10.1); Carbon Dioxide 20.7 mmol/L (21.0-32.0); Chloride 98 mmol/L (98-107); Estimated GFR (African America 32 (>=60 mL/min/1.73m^2); Estimated GFR (Non-African Ame 26 (>=60 mL/min/1.73m^2); Globulin 3.8 g/dL; Glucose 272 mg/dL (74-106); Potassium 3.6 mmol/L (3.5-5.1); Sodium 135 mmol/L (136-145); Total Protein 6.4 g/dL (6.4-8.2)
[2024-08-23 11:59] LABS: Troponin I High Sensitivity 735.8 pg/mL (4.0-76.1)
[2024-08-23 15:29] LABS: Internal Control Within Normal Limits; Occult Blood Positive
--- NOTE | 2024-08-23 15:54 | SWNOTE1 ---
SW reviewed Physical therapy note and there is anticipation of improvement and pt will likely have no needs at discharge. If not improvement, then home health recommended. SW to continue to check daily.
--- NOTE | 2024-08-23 15:55 | PC.NURSE ---
pt returned from bathroom per self, and picc line was pulled out. tip intact, pressure applied to site and dressing applied. instructed pt he is not to be ambulating without assist.
[2024-08-23 15:56] LABS: Troponin I High Sensitivity 811.1 pg/mL (4.0-76.1)
[2024-08-23] MEDS: LEVOFLOXACIN IN DEXTROSE 5 % 750 MG/150 ML PREMIX 100 MG IV (16:33)
[2024-08-23 16:39] LABS: Glucometer 183 mg/dL (74-106)
--- NOTE | 2024-08-23 17:24 | PM.CACN ---
History of Present Illness History of Present Illness Consult date: 08/23/24 Requesting physician: Gama Camacho Chief complaint: elevated troponine Narrative: The patient is 53-year-old male without prior cardiac history. He has history of hypertension, hyperlipidemia, type 2 diabetes mellitus, interstitial lung disease due to sarcoidosis, morbid obesity, sleep apnea on CPAP, fatty liver and lumbar spine fusion. Her 3 weeks prior to admission he had nephrostomy tube placed and it was removed because of issue of placement followed by ureteral stent placement. He presented with worsening fatigue, fever, chills, increased heart rate and shortness of breath. On admission he was tachycardic febrile associated with leukocytosis, lactic acidosis and also he had hypotension and acute renal insufficiency. He required vasopressors which was weaned off today around noon. His creatinine on admission was 1.9 in comparison to 1.06 at his baseline and it went up as high as 3.3 and now it is down to 2.59. He is off pressors today around noon. Also his liver enzymes were elevated. Troponin was checked and it came back to be positive of 123 and it has been going up gradually and the highest was today 811. Patient denies any chest discomfort during the current illness. He was more short of breath than he used to be on admission but he is much better now. He denies any prior history of chest discomfort at rest or with exertion. He denies orthopnea or paroxysmal nocturnal dyspnea or dizziness or palpitations. His EKG since admission did not show significant T or ST changes. His echo today was technically difficult but it showed overall normal left ventricle systolic function ejection fraction 55 to 60% with moderate left ventricle hypertrophy. He denies smoking. He denies alcohol or illicit drugs. Both paternal and maternal grandfathers had history of heart disease Review of Systems ROS Narrative All systems were reviewed and they were negative except for the positive findings noted above in the history [facility] Medical History (Updated 08/22/24 @ 17:54 by Gama Camacho MD) Hx of diabetes mellitus ?Z86.39 - Personal history of other endocrine, nutritional and metabolic disease (ICD-10) Ureteral stent present ?Z96.0 - Presence of urogenital implants (ICD-10) Fusion of lumbar spine ?M43.26 - Fusion of spine, lumbar region (ICD-10) Vitamin D deficiency ?E55.9 - Vitamin D deficiency, unspecified (ICD-10) Sarcoidosis ?D86.9 - Sarcoidosis, unspecified (ICD-10) Rectal bleeding ?K62.5 - Hemorrhage of anus and rectum (ICD-10) Obstructive sleep apnea ?G47.33 - Obstructive sleep apnea (adult) (pediatric) (ICD-10) Obesity ?E66.9 - Obesity, unspecified (ICD-10) LAD (lymphadenopathy), mediastinal ?R59.0 - Localized enlarged lymph nodes (ICD-10) Abdominal pain ?R10.9 - Unspecified abdominal pain (ICD-10) Interstitial lung disease ?J84.9 - Interstitial pulmonary disease, unspecified (ICD-10) Hypercholesteremia ?E78.00 - Pure hypercholesterolemia, unspecified (ICD-10) Hypertension ?I10 - Essential (primary) hypertension (ICD-10) Nephrolithiasis ?N20.0 - Calculus of kidney (ICD-10) Hepatomegaly ?R16.0 - Hepatomegaly, not elsewhere classified (ICD-10) Hepatic steatosis ?K76.0 - Fatty (change of) liver, not elsewhere classified (ICD-10) Diabetes ?E11.9 - Type 2 diabetes mellitus without complications (ICD-10) Surgical History History of arthroscopy of knee ?Z98.890 - Other specified postprocedural states (ICD-10) History of lumbar fusion ?Z98.1 - Arthrodesis status (ICD-10) Status post lateral meniscus repair ?Z98.890 - Other specified postprocedural states (ICD-10) H/O arthroscopy of shoulder ?Z98.890 - Other specified postprocedural states (ICD-10) Social History Within the past year, how often did you have a drink containing alcohol: never Score interpretation: A score less than 4 is consistent with normal alcohol consumption. Smoking status: Never smoker Second hand tobacco smoke exposure: No Non-prescribed substance use: denies use Previous occupational history: [employer] Known occupational exposures/hazards: No Highest level of school completed/degree received: Associate degree: occupational, technical, vocational program Little interest or pleasure in doing things: not at all Feeling down, depressed, or hopeless: not at all Meds Home Medications and Allergies Home Medications ?Medication ?Instructions ?Recorded ?Confirmed ?Type metoprolol tartrate 100 mg tablet 100 mg PO BID 03/31/23 08/22/24 History oxaprozin 600 mg tablet 1,200 mg PO DAILY 03/31/23 08/22/24 History paroxetine HCl 40 mg tablet 60 mg PO DAILY 03/31/23 08/22/24 History irbesartan 150 mg tablet 150 mg PO DAILY 08/22/24 08/22/24 History simvastatin 40 mg tablet 40 mg PO .QHS 08/22/24 08/22/24 History tamsulosin 0.4 mg capsule 0.8 mg PO DAILY 08/22/24 08/22/24 History tizanidine 4 mg tablet 8 mg PO .QHS 08/22/24 08/22/24 History Allergies Allergy/AdvReac Type Severity Reaction Status Date / Time No Known Drug Allergies Allergy Verified 03/31/23 14:31 Exam Constitutional Vital Signs, click to edit/add: Last Vital Signs Temp 99.2 F 08/23/24 16:00 Pulse 104 H 08/23/24 16:00 Resp 22 H 08/23/24 16:00 BP 107/70 08/23/24 15:51 Pulse Ox 96 08/23/24 12:31 O2 Del Method Room Air 08/23/24 12:00 Results Labs and Meds Lab results: Cardiac Enzymes 08/23/24 08/23/24 Range/Units 06:02 11:20 AST 135 H 124 H (15-37) U/L Coagulation 08/23/24 Range/Units 06:02 PT 11.1 (9.0-11.6) sec APTT 32.5 (22.3-36.2) sec CBC 08/23/24 Range/Units 06:02 WBC 11.9 H (4.0-11.0) 10^3/uL RBC 4.15 L (4.70-6.10) 10^6/uL Hgb 12.2 L (14.0-18.0) g/dL Hct 35.9 L (42.0-54.0) % Plt Count 117 L (150-450) 10^3/uL Neut # (Auto) 9.5 H (1.4-6.5) 10^3/uL Lymph # (Auto) 0.5 L (1.2-3.8) 10^3/uL [place] # (Auto) 1.3 H (0.3-0.8) 10^3/uL Eos # (Auto) 0.4 (0.0-0.7) 10^3/uL Baso # (Auto) 0.0 (0.0-0.1) 10^3/uL Comprehensive Metabolic Panel 08/23/24 08/23/24 Range/Units 06:02 11:20 Sodium 133 L 135 L (136-145) mmol/L Potassium 4.0 3.6 (3.5-5.1) mmol/L Chloride 98 98 (98-107) mmol/L Carbon Dioxide 19.4 L 20.7 L (21.0-32.0) mmol/L BUN 41.0 H 40.0 H (7.0-18.0) mg/dL Creatinine 3.37 H 2.59 H (0.70-1.30) mg/dL Glucose 226 H 272 H (74-106) mg/dL Calcium 8.7 8.6 (8.5-10.1) mg/dL AST 135 H 124 H (15-37) U/L ALT 60 70 H (16-63) U/L Alkaline Phosphatase 59 61 (46-116) U/L Total Protein 6.8 6.4 (6.4-8.2) g/dL Albumin 3.1 L 2.6 L (3.4-5.0) g/dL Intake and Output 08/23/24 08/23/24 08/23/24 07:59 15:59 23:59 Intake Total 2345.75 / 6075.75 2395.667 / 2395.667 Output Total 250 / 800 1800 / 1800 Balance 2095.75 / 5275.75 595.667 / 595.667 Intake: Oral 240 / 240 IV 2345.75 / 5595.75 2155.667 / 2155.667 0.9 % Sodium Chloride 1,000 ml 2000 / 3000 1941.667 / 1941.667 @ 125 mls/hr IV .Q8H [facility] Rx#: [id number] Albumin Human 25 gm In 100 ml @ 200 / 200 100 mls/hr IV Q1H [facility] Rx#: [id number] Norepinephrine Bitartrate/D5w 4 95.75 / 95.75 164.00 / 164.00 mg In 250 ml @ 8 MCG/MIN 30 mls/hr IV CONT [facility] Rx#:[id number] Piperacillin Sodium/Tazobactam 50 / 50 50 / 50 3.375 gm In 0.9 % Sodium Chloride 50 ml @ 12.5 mls/hr IV Q8H [facility] Rx#:[id number] Output: Urine Amount (Catheter) 250 / 800 1800 / 1800 Urethral 250 / 800 1800 / 1800 Other: # Bowel Movements 2 Patient all of them showed normal sinus rhythm normal EKG Echo today 08/23/2024 Moderate concentric left ventricular hypertrophy Left ventricle static function was difficult to evaluate but appears to be preserved with ejection fraction 55 to 60% Right atrial enlargement Mildly enlarged right ventricle with reduced systolic function Assessment and Plan Assessment and Plan (1) Acute non-ST elevation myocardial infarction (NSTEMI): (2) Severe sepsis: Assessment and Plan: Urosepsis associated with septic shock (3) Lactic acidosis: (4) Acute kidney injury: (5) Hypotension: Assessment and Plan: It required vasopressors which was discontinued today around noon (6) Ureteral stent present: (7) Respiratory distress: Assessment and Plan: Due to sepsis on top of prior history of interstitial lung disease/sarcoidosis (8) Elevated liver function tests: (9) Hypertension: (10) Hypercholesteremia: (11) Diabetes: (12) Obstructive sleep apnea: Assessment and Plan: Has been on CPAP (13) Obesity: (14) Interstitial lung disease: Assessment and Plan: Sarcoidosis (15) Hepatic steatosis: Plan I think the elevated troponin represents type II non-ST elevation myocardial infarction due to combination of urosepsis/septic shock associated with acute renal insufficiency, hypotension requiring vasopressors, and lactic acidosis. I think his troponin continues to go up because of worsening renal insufficiency. The patient did not have any acute EKG changes and his echo showed normal left ventricle systolic function. At this point recommend to start on EC aspirin 81 mg daily and also start him on small dose of beta-shankar in the form of Lopressor 25 mg twice daily starting tomorrow morning. Restart statin when liver enzymes are back to normal. I recommend a Lexiscan nuclear stress test as outpatient after he recovers from the current acute illness to evaluate for ischemia Aggressive risk factors modification
[2024-08-23 17:53] LABS: Troponin I High Sensitivity 728.3 pg/mL (4.0-76.1)
--- NOTE | 2024-08-23 18:12 | PM.CACN ---
History of Present Illness History of Present Illness Chief complaint: elevated troponine [facility] Medical History (Updated 08/22/24 @ 17:54 by Gama Camacho MD) Hx of diabetes mellitus ?Z86.39 - Personal history of other endocrine, nutritional and metabolic disease (ICD-10) Ureteral stent present ?Z96.0 - Presence of urogenital implants (ICD-10) Fusion of lumbar spine ?M43.26 - Fusion of spine, lumbar region (ICD-10) Vitamin D deficiency ?E55.9 - Vitamin D deficiency, unspecified (ICD-10) Sarcoidosis ?D86.9 - Sarcoidosis, unspecified (ICD-10) Rectal bleeding ?K62.5 - Hemorrhage of anus and rectum (ICD-10) Obstructive sleep apnea ?G47.33 - Obstructive sleep apnea (adult) (pediatric) (ICD-10) Obesity ?E66.9 - Obesity, unspecified (ICD-10) LAD (lymphadenopathy), mediastinal ?R59.0 - Localized enlarged lymph nodes (ICD-10) Abdominal pain ?R10.9 - Unspecified abdominal pain (ICD-10) Interstitial lung disease ?J84.9 - Interstitial pulmonary disease, unspecified (ICD-10) Hypercholesteremia ?E78.00 - Pure hypercholesterolemia, unspecified (ICD-10) Hypertension ?I10 - Essential (primary) hypertension (ICD-10) Nephrolithiasis ?N20.0 - Calculus of kidney (ICD-10) Hepatomegaly ?R16.0 - Hepatomegaly, not elsewhere classified (ICD-10) Hepatic steatosis ?K76.0 - Fatty (change of) liver, not elsewhere classified (ICD-10) Diabetes ?E11.9 - Type 2 diabetes mellitus without complications (ICD-10) Surgical History History of arthroscopy of knee ?Z98.890 - Other specified postprocedural states (ICD-10) History of lumbar fusion ?Z98.1 - Arthrodesis status (ICD-10) Status post lateral meniscus repair ?Z98.890 - Other specified postprocedural states (ICD-10) H/O arthroscopy of shoulder ?Z98.890 - Other specified postprocedural states (ICD-10) Social History Within the past year, how often did you have a drink containing alcohol: never Score interpretation: A score less than 4 is consistent with normal alcohol consumption. 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 Known occupational exposures/hazards: No Highest level of school completed/degree received: Associate degree: occupational, technical, vocational program Little interest or pleasure in doing things: not at all Feeling down, depressed, or hopeless: not at all Meds Home Medications and Allergies Home Medications ?Medication ?Instructions ?Recorded ?Confirmed ?Type metoprolol tartrate 100 mg tablet 100 mg PO BID 03/31/23 08/22/24 History oxaprozin 600 mg tablet 1,200 mg PO DAILY 03/31/23 08/22/24 History paroxetine HCl 40 mg tablet 60 mg PO DAILY 03/31/23 08/22/24 History irbesartan 150 mg tablet 150 mg PO DAILY 08/22/24 08/22/24 History simvastatin 40 mg tablet 40 mg PO .QHS 08/22/24 08/22/24 History tamsulosin 0.4 mg capsule 0.8 mg PO DAILY 08/22/24 08/22/24 History tizanidine 4 mg tablet 8 mg PO .QHS 08/22/24 08/22/24 History Allergies Allergy/AdvReac Type Severity Reaction Status Date / Time No Known Drug Allergies Allergy Verified 03/31/23 14:31 Exam Constitutional Vital Signs, click to edit/add: Last Vital Signs Temp 99.2 F 08/23/24 16:00 Pulse 100 H 08/23/24 18:00 Resp 22 H 08/23/24 16:00 BP 107/70 08/23/24 15:51 Pulse Ox 96 08/23/24 12:31 O2 Del Method Room Air 08/23/24 12:00 Results Labs and Meds Lab results: Cardiac Enzymes 08/23/24 08/23/24 Range/Units 06:02 11:20 AST 135 H 124 H (15-37) U/L Coagulation 08/23/24 Range/Units 06:02 PT 11.1 (9.0-11.6) sec APTT 32.5 (22.3-36.2) sec CBC 08/23/24 Range/Units 06:02 WBC 11.9 H (4.0-11.0) 10^3/uL RBC 4.15 L (4.70-6.10) 10^6/uL Hgb 12.2 L (14.0-18.0) g/dL Hct 35.9 L (42.0-54.0) % Plt Count 117 L (150-450) 10^3/uL Neut # (Auto) 9.5 H (1.4-6.5) 10^3/uL Lymph # (Auto) 0.5 L (1.2-3.8) 10^3/uL Ramsey # (Auto) 1.3 H (0.3-0.8) 10^3/uL Eos # (Auto) 0.4 (0.0-0.7) 10^3/uL Baso # (Auto) 0.0 (0.0-0.1) 10^3/uL Comprehensive Metabolic Panel 08/23/24 08/23/24 Range/Units 06:02 11:20 Sodium 133 L 135 L (136-145) mmol/L Potassium 4.0 3.6 (3.5-5.1) mmol/L Chloride 98 98 (98-107) mmol/L Carbon Dioxide 19.4 L 20.7 L (21.0-32.0) mmol/L BUN 41.0 H 40.0 H (7.0-18.0) mg/dL Creatinine 3.37 H 2.59 H (0.70-1.30) mg/dL Glucose 226 H 272 H (74-106) mg/dL Calcium 8.7 8.6 (8.5-10.1) mg/dL AST 135 H 124 H (15-37) U/L ALT 60 70 H (16-63) U/L Alkaline Phosphatase 59 61 (46-116) U/L Total Protein 6.8 6.4 (6.4-8.2) g/dL Albumin 3.1 L 2.6 L (3.4-5.0) g/dL Intake and Output 08/23/24 08/23/24 08/23/24 07:59 15:59 23:59 Intake Total 2345.75 / 6075.75 2395.667 / 2545.667 150 / 2545.667 Output Total 250 / 800 1800 / 1800 Balance 2095.75 / 5275.75 595.667 / 745.667 150 / 745.667 Intake: Oral 240 / 240 IV 2345.75 / 5595.75 2155.667 / 2305.667 150 / 2305.667 0.9 % Sodium Chloride 1,000 ml 1999 / 3000 1941.667 / 1941.667 @ 125 mls/hr IV .Q8H [facility] Rx#: [id number] Albumin Human 25 gm In 100 ml @ 200 / 200 100 mls/hr IV Q1H [facility] Rx#: [id number] Levofloxacin in Dextrose 5 % 150 / 150 750 mg In 150 ml @ 100 mls/hr IV Q24H [facility] Rx#:[id number] Norepinephrine Bitartrate/D5w 4 95.75 / 95.75 164.00 / 164.00 mg In 250 ml @ 8 MCG/MIN 30 mls/hr IV CONT [facility] Rx#:[id number] Piperacillin Sodium/Tazobactam 50 / 50 50 / 50 3.375 gm In 0.9 % Sodium Chloride 50 ml @ 12.5 mls/hr IV Q8H [facility] Rx#:[id number] Output: Urine Amount (Catheter) 250 / 800 1800 / 1800 Urethral 250 / 800 1800 / 1800 Other: # Bowel Movements 2 Assessment and Plan Assessment and Plan (1) Acute non-ST elevation myocardial infarction (NSTEMI): (2) Severe sepsis: Assessment and Plan: Urosepsis associated with septic shock (3) Lactic acidosis: (4) Acute kidney injury: (5) Hypotension: Assessment and Plan: It required vasopressors which was discontinued today around noon (6) Respiratory distress: Assessment and Plan: Due to sepsis on top of prior history of interstitial lung disease/sarcoidosis (7) Elevated liver function tests: Plan I think the elevated troponin represents type II non-ST elevation myocardial infarction due to combination of urosepsis/septic shock associated with acute renal insufficiency, hypotension requiring vasopressors, and lactic acidosis. I think his troponin continues to go up because of worsening renal insufficiency. The patient did not have any acute EKG changes and his echo showed normal left ventricle systolic function. At this point recommend to start on EC aspirin 81 mg daily and also start him on small dose of beta-shankar in the form of Lopressor 25 mg twice daily starting tomorrow morning. Restart statin when liver enzymes are back to normal. I recommend a Lexiscan nuclear stress test as outpatient after he recovers from the current acute illness to evaluate for ischemia Aggressive risk factors modification
[2024-08-23] MEDS: TIZANIDINE HCL 4 MG TABLET 8 MG PO (21:07)
[2024-08-23] MEDS: ENOXAPARIN SODIUM 40 MG/0.4 ML SYRINGE SUBQ (21:07)
[2024-08-23 21:11] LABS: Glucometer 190 mg/dL (74-106)
[2024-08-24] VITALS (56 sets, daily range): BP systolic 108–148; BP diastolic 70–88; PULSE 72–130; TEMP 36.4–37.2; O2SAT 88–97
[2024-08-24 02:28] LABS: Glucometer 195 mg/dL (74-106)
[2024-08-24] MEDS: 0.9 % SODIUM CHLORIDE 1,000 ML 125 ML IV (03:16)
[2024-08-24 04:18] LABS: A. calcoaceticus-baumannii Cpx NOT DETECTED (NOT DETECTE); Bacteroides fragilis NOT DETECTED (NOT DETECTE); Candida albicans NOT DETECTED (NOT DETECTE); Candida auris NOT DETECTED (NOT DETECTE); Candida glabrata NOT DETECTED (NOT DETECTE); Candida krusei NOT DETECTED (NOT DETECTE); Candida parapsilosis NOT DETECTED (NOT DETECTE); Candida tropicalis NOT DETECTED (NOT DETECTE); Cryptococcus neoformans/gattii NOT DETECTED (NOT DETECTE); Enterobacter cloacae complex NOT DETECTED (NOT DETECTE); Enterobacterales NOT DETECTED (NOT DETECTE); Enterococcus faecium NOT DETECTED (NOT DETECTE); Haemophilus influenzae NOT DETECTED (NOT DETECTE); Klebsiella aerogenes NOT DETECTED (NOT DETECTE); Klebsiella pneumoniae group NOT DETECTED (NOT DETECTE); Listeria monocytogenes NOT DETECTED (NOT DETECTE); Neisseria meningitidis NOT DETECTED (NOT DETECTE); Proteus spp. NOT DETECTED (NOT DETECTE); Pseudomonas aeruginosa NOT DETECTED (NOT DETECTE); Salmonella spp. NOT DETECTED (NOT DETECTE); Serratia marcescens NOT DETECTED (NOT DETECTE); Staphylococcus epidermidis NOT DETECTED (NOT DETECTE); Staphylococcus lugdunensis NOT DETECTED (NOT DETECTE); Staphylococcus spp. NOT DETECTED (NOT DETECTE); Stenotrophomonas maltophilia NOT DETECTED (NOT DETECTE); Streptococcus agalactiae NOT DETECTED (NOT DETECTE); Streptococcus pneumoniae NOT DETECTED (NOT DETECTE); Streptococcus pyogenes NOT DETECTED (NOT DETECTE); Streptococcus spp. NOT DETECTED (NOT DETECTE)
[2024-08-24 05:32] LABS: Source BLOOD; vanA/B NOT DETECTED (NOT DETECTE)
[2024-08-24 05:35] LABS: Enterococcus faecalis DETECTED (NOT DETECTE)
[2024-08-24] MEDS: HYDROCORTISONE SODIUM SUCC PF 100 MG/2 ML VIAL IVP (05:42)
[2024-08-24] MEDS: PIPERACILLIN SODIUM/TAZOBACTAM 3.375 GM in 0.9 % SODIUM CHLORIDE 50 ML IV ×3 (05:42→21:21)
[2024-08-24 06:10] LABS: Basophils Percent Auto 0.1 % (0.2-2.0); Hematocrit 30.9 % (42.0-54.0); Hemoglobin 10.5 g/dL (14.0-18.0); Immature Granulocytes Abs Auto 0.05 10^3/uL (0.00-0.03); Immature Granulocytes Pct Auto 0.6 % (0.0-0.5); Lymphocytes Absolute Auto 0.5 10^3/uL (1.2-3.8); Lymphocytes Percent Auto 5.7 % (20.5-60.0); Mean Corpuscular Hemoglobin 29.7 pg (25.9-34.0); Mean Corpuscular Volume 87.5 fL (80.0-94.0); Mean Platelet Volume 11.9 fL (9.5-13.5); Monocytes Absolute Auto 0.7 10^3/uL (0.3-0.8); Monocytes Percent Auto 8.3 % (1.7-12.0); Neutrophils Absolute Auto 7.6 10^3/uL (1.4-6.5); Neutrophils Percent Auto 85.3 % (43.0-75.0); Platelet Count 129 10^3/uL (150-450); Red Blood Count 3.53 10^6/uL (4.70-6.10); Red Cell Distribution Width 13.3 % (11.0-15.0); White Blood Count 8.9 10^3/uL (4.0-11.0)
[2024-08-24 06:11] LABS: PCO2 VBG 34.7 mmHg (40.0-52.0); pH VBG 7.382 (7.330-7.430)
[2024-08-24 06:35] LABS: Alanine Aminotransferase 58 U/L (16-63); Albumin Globulin Ratio 0.6; Albumin Level 2.3 g/dL (3.4-5.0); Alkaline Phosphatase 54 U/L (46-116); Anion Gap 15.4; Aspartate Amino Transferase 88 U/L (15-37); BUN Creatinine Ratio 25.2; Bilirubin Total 0.8 mg/dL (0.2-1.0); Calcium 8.6 mg/dL (8.5-10.1); Carbon Dioxide 20.9 mmol/L (21.0-32.0); Chloride 105 mmol/L (98-107); Estimated GFR (African America 58 (>=60 mL/min/1.73m^2); Estimated GFR (Non-African Ame 48 (>=60 mL/min/1.73m^2); Globulin 3.8 g/dL; Glucose 199 mg/dL (74-106); Magnesium 2.2 mg/dL (1.8-2.4); Potassium 3.3 mmol/L (3.5-5.1); Sodium 138 mmol/L (136-145); Total Protein 6.1 g/dL (6.4-8.2)
--- NOTE | 2024-08-24 06:36 | P.PN_ITS ---
Progress Note: Subjective Subjective Interval history: Looks much better this morning, no new complaints, denies chest pain or shortness of breath Exam Constitutional Vital Signs, click to edit/add: Last Vital Signs Temp 97.9 F 08/24/24 05:53 Pulse 79 08/24/24 06:08 Resp 26 H 08/24/24 05:53 BP 129/85 08/24/24 05:53 Pulse Ox 96 08/24/24 05:53 O2 Del Method CPAP 08/24/24 05:53 Documenting provider has reviewed patient's vital signs: yes Common normals: no apparent distress (No shortness of breath) HENMT Common normals: normocephalic Chest Common normals: inspection of chest normal Respiratory Common normals: normal respiratory effort, no retractions and clear to auscultation bilaterally Effort & inspection: non tachypneic Auscultation: no rhonchi and no wheezes Cardio Common normals: regular rate, regular rhythm and no murmurs Rate: not tachycardic GI Common normals: soft to palpation and non-tender (Resolved); negative for Normal to inspection, nondistended, normoactive bowel sounds present (Obese) Extremity Common normals: normal to inspection, full ROM and no clubbing, cyanosis or edema (Still no edema) Neuro Common normals: oriented x3, CN's II-XII intact bilaterally, moves all extremities and no focal motor deficits Progress Note: Objective Labs Labs: Short CBC 08/24/24 Range/Units 05:47 WBC 8.9 (4.0-11.0) 10^3/uL Hgb 10.5 L (14.0-18.0) g/dL Hct 30.9 L (42.0-54.0) % Plt Count 129 L (150-450) 10^3/uL BMP 08/23/24 08/23/24 06:02 11:20 Sodium 133 L 135 L Potassium 4.0 3.6 Chloride 98 98 Carbon Dioxide 19.4 L 20.7 L BUN 41.0 H 40.0 H Creatinine 3.37 H 2.59 H Glucose 226 H 272 H Calcium 8.7 8.6 Liver Function 08/23/24 08/23/24 Range/Units 06:02 11:20 Total Bilirubin 1.7 H 1.4 H (0.2-1.0) mg/dL AST 135 H 124 H (15-37) U/L ALT 60 70 H (16-63) U/L Alkaline Phosphatase 59 61 (46-116) U/L Albumin 3.1 L 2.6 L (3.4-5.0) g/dL Progress Note: A&P Assessment and Plan (1) Acute non-ST elevation myocardial infarction (NSTEMI): (2) Severe sepsis: (3) Lactic acidosis: (4) Acute kidney injury: (5) Hypotension: (6) Respiratory distress: (7) Elevated liver function tests: (8) Leukocytosis: (9) Bandemia: (10) Tachypnea: (11) Hx of diabetes mellitus: (12) Ureteral stent present: (13) Obstructive sleep apnea: (14) Obesity: (15) Abdominal pain: (16) Interstitial lung disease: (17) Hypertension: (18) Hepatic steatosis: (19) Diabetes: (20) Pyelonephritis: (21) Coagulopathy: (22) Hyponatremia: (23) Hypomagnesemia: (24) Acute urinary retention: (25) Sinus tachycardia: Plan Admission findings: Fever, greater than 101, sinus tachycardia greater than 140, respiratory distress, initially uncontrolled hypertension and then hypotension with systolics in the 90s, leukocytosis with bandemia, hyponatremia and acute kidney injury (baseline creatinine of 1.06, admission creatinine of 1.90 this is 179.2% above baseline) uncontrolled diabetes mellitus, lactic acidosis, coagulopathy with elevated liver function test, acute elevation in high- sensitivity troponin with acute elevation in BNP with normal EKG consistent with acute NSTEMI due to pyelonephritis with recent instrumentation and ureteral stent in place, resulting in severe sepsis Lactic acidosis and severe sepsis secondary to pyelonephritis secondary to Enterococcus with positive bacteremia-white blood cell count resolved to normal, likely related to the levofloxacin, saline lock today, cut back on steroids today, if stable tomorrow with adjustment in medications today, discharge to home Acute renal failure secondary to the above-baseline creatinine 1.06, today's creatinine is 3.37 which is 317.9% above baseline, over 300% above baseline to be consistent with acute renal failure-creatinine is improved today, still 146.2% above baseline Sinus tachycardia secondary to severe sepsis that is resulted in acute NSTEMI type II-echo was normal, heart rate improved, troponin trending down further, will start beta-blockers, stress test as an outpatient Thrombocytopenia secondary to sepsis-continue to monitor daily no signs of bleeding Acute elevation in BNP this is possibly related to the tachycardia and the sepsis and the acute kidney injury, BNP further elevated today but no signs of heart failure, chest x-ray is clear, lung exam was clear and no peripheral edema, suspect it is related to the acute renal failure, repeat later this morning Hyponatremia secondary to the severe dehydration and sepsis-resolved with normal Poorly controlled diabetes mellitus-adjusting sliding scale Hypomagnesemia-supplement Acute elevation of the liver function test with acute elevation in INR consistent with sepsis with coagulopathy-continuing to improve BPH with acute urinary retention-Verdin catheter in place, consider ultrasound kidneys tomorrow Chronic diarrhea-will check stool studies Sarcoidosis-no hypoxia, monitor closely Hypertension by history-hold off on blood pressure medications Generalized arthritis-hold off on NSAIDs Low back pain-continue with tizanidine Hypercholesterolemia will hold off on medication currently with elevated liver function test Depression-continue with home medications Morbid obesity with sleep apnea-use home machine Admission status: Patient with severe sepsis secondary to pyelonephritis with significant lactic acidosis and bandemia, medically necessary treatment will span 2 midnights, likely here for 4 days, inpatient status in the stepdown unit Urinary Catheter Management Urinary Catheter Management Urethral: Cath placed during this visit: yes Urethral indwelling: Yes Reason for continuing: acute urinary retention Insertion date: 08/22/24 Insertion time: 15:00
[2024-08-24 06:38] LABS: Troponin I High Sensitivity 352.5 pg/mL (4.0-76.1)
[2024-08-24 06:56] LABS: INR 1.03; Partial Thromboplastin Time 30.4 sec (22.3-36.2); Prothrombin Time 10.9 sec (9.0-11.6)
--- NOTE | 2024-08-24 08:48 | CM.NOTE ---
Rounds made with Dr. Camacho, no discharge today. Pt does verbalize he is feeling better and breathing easier. Continue to monitor.
[2024-08-24] MEDS: METOPROLOL TARTRATE 25 MG TABLET PO ×2 (09:04→21:23)
[2024-08-24] MEDS: PAROXETINE HCL 20 MG TABLET 60 MG PO (09:05)
[2024-08-24] MEDS: POTASSIUM CHLORIDE 10 MEQ ER TABLET 20 MEQ PO ×2 (09:05→21:23)
[2024-08-24] MEDS: PANTOPRAZOLE SODIUM 40 MG VIAL IV (09:06)
[2024-08-24] MEDS: TAMSULOSIN HCL 0.4 MG CAPSULE 0.8 MG PO (09:06)
[2024-08-24] MEDS: INSULIN ASPART 300 UNIT/3 ML PEN SUBQ (09:07)
--- NOTE | 2024-08-24 10:36 | OT.DAILY ---
Occupational Therapy Daily Note OT Inpatient Daily Visit Note Start: 08/23/24 16:56 Freq: Status: Active Protocol: Document 08/24/24 10:30 [id number] (Rec: 08/24/24 10:36 [id number]) OT Visit Details Time In/Time Out Time In 10:05 Time Out 10:25 OT Treatment Plan Subjective Subjective Pt sleeping upon arrival. Good management of CPAP. Agreeable to self-care tasks at this time. AAOx4. Objective Objective Pt willing to complete self-care tasks with appropriate positioning. SBA for [id number] on EOB. Good sitting balance on EOB, not feeling lightheaded or dizzy. With set up of supplies Pt able to complete oral hygiene I with good sequencing. Applied anti- perspirant with Min A due to lack BUE ROM, reaching outside MAN[place]OR. Pt remains seated, demonstrates UB and LB dressing SBA. Completed [id number] w/o walker, good static standing balance. Ambulated to recliner chair, [id number] SBA with good safety techniques. Assessment Assessment Pt tolerated treatment well. Agreeable and cooperative. Eager and motivated to return home. Continue OT POC. OT Podiatry Teacher Timed Codes Self-[facility] 20 Management minutes ( minutes) Self-[facility] 1 Management units
--- NOTE | 2024-08-24 11:06 | PT.DAILY ---
Physical Therapy Daily Note PT Daily Note/Assess Start: 08/24/24 10:59 Freq: Status: Active Protocol: Document 08/24/24 10:30 ALBA (Rec: 08/24/24 11:05 [id number]) Physical Therapy Daily Note/Assessment Time In/Time Out Time In 10:30 Time Out 10:39 Subjective Subjective Patient up in chair and reports feeling better today. Ready to get up and go for a walk. Therapeutic Activity Time Therapeutic Activity 9 Minutes (minutes) Therapeutic Activity 1 Units Therapeutic Activity Treatment Chair Transfer Standby Assistance Ability Therapeutic Activity Seated Exercises: Comments Marches x 10 LAQ x 10 HR/ TR x 10 Add squeezes x 10 Patient ambulated 104 feet with RW and CGA required for safety. Patient reports feeling good during ambulation and has no LOB today. Total Physical Therapy Time Total Therapy 9 Minutes Total Physical 1 Therapy Units Summary Daily Note Summary Ambulation distance improved to 104 feet with RW CGA today. Patient reports feeling good throughout ambulation and demonstrates no LOB today. Seated exercises performed after ambulation to continue to increase strength in B LE. Patient in chair with call light in reach and all needs met post treatment. Nursing present.
[2024-08-24 16:27] LABS: Glucometer 144 mg/dL (74-106)
[2024-08-24] MEDS: LEVOFLOXACIN 750 MG TABLET PO (17:25)
[2024-08-24] MEDS: TIZANIDINE HCL 4 MG TABLET 8 MG PO (21:23)
[2024-08-24 21:30] LABS: Glucometer 133 mg/dL (74-106)
[2024-08-25] VITALS (10 sets, daily range): BP systolic 163; BP diastolic 89; PULSE 72–113; TEMP 37–37.3; O2SAT 95–96
[2024-08-25] MEDS: PIPERACILLIN SODIUM/TAZOBACTAM 3.375 GM in 0.9 % SODIUM CHLORIDE 50 ML IV (05:11)
[2024-08-25 06:10] LABS: Basophils Percent Auto 0.1 % (0.2-2.0); Eosinophils Percent Auto 0.2 % (0.9-7.0); Hematocrit 34.1 % (42.0-54.0); Hemoglobin 11.5 g/dL (14.0-18.0); Immature Granulocytes Abs Auto 0.07 10^3/uL (0.00-0.03); Immature Granulocytes Pct Auto 0.8 % (0.0-0.5); Lymphocytes Absolute Auto 0.6 10^3/uL (1.2-3.8); Lymphocytes Percent Auto 7.4 % (20.5-60.0); Mean Corpuscular HGB Conc 33.7 g/dL (29.9-35.2); Mean Corpuscular Hemoglobin 29.6 pg (25.9-34.0); Mean Corpuscular Volume 87.7 fL (80.0-94.0); Mean Platelet Volume 11.2 fL (9.5-13.5); Monocytes Absolute Auto 0.8 10^3/uL (0.3-0.8); Monocytes Percent Auto 9.8 % (1.7-12.0); Neutrophils Absolute Auto 6.7 10^3/uL (1.4-6.5); Neutrophils Percent Auto 81.7 % (43.0-75.0); Platelet Count 165 10^3/uL (150-450); Red Blood Count 3.89 10^6/uL (4.70-6.10); Red Cell Distribution Width 13.7 % (11.0-15.0); White Blood Count 8.3 10^3/uL (4.0-11.0)
[2024-08-25 06:40] LABS: Alanine Aminotransferase 59 U/L (16-63); Albumin Globulin Ratio 0.6; Albumin Level 2.5 g/dL (3.4-5.0); Alkaline Phosphatase 67 U/L (46-116); Anion Gap 12.9; Aspartate Amino Transferase 62 U/L (15-37); BUN Creatinine Ratio 23.4; Bilirubin Total 1.2 mg/dL (0.2-1.0); Calcium 9.1 mg/dL (8.5-10.1); Carbon Dioxide 25.3 mmol/L (21.0-32.0); Chloride 103 mmol/L (98-107); Estimated GFR (African America >60 (>=60 mL/min/1.73m^2); Estimated GFR (Non-African Ame 59 (>=60 mL/min/1.73m^2); Globulin 4.1 g/dL; Glucose 175 mg/dL (74-106); Potassium 3.2 mmol/L (3.5-5.1); Sodium 138 mmol/L (136-145); Total Protein 6.6 g/dL (6.4-8.2)
--- NOTE | 2024-08-25 06:43 | P.DS_ITS ---
DS: Providers Provider Date of admission: 08/22/24 16:09 Primary care physician: Gama Camacho MD Consults: 08/22/24 16:29 Occupational Therapy Eval and Treat Routine Reason for consultation: Only if needed for Rehab Has provider been notified: No Physical Therapy Eval and Treat Routine Reason for consultation: Eval and Treat Has provider been notified: No 08/23/24 00:40 Consult to PICC Line RN Routine Consulting Provider: La Nena Linares Reason for consultation: pressors, hypotensive, sepsis Has provider been notified: No 08/23/24 07:45 Consult to Cardiology Routine Reason for consultation: nstemi DS: Diagnosis Discharge Diagnosis (1) Acute non-ST elevation myocardial infarction (NSTEMI): (2) Severe sepsis: (3) Lactic acidosis: (4) Acute kidney injury: (5) Hypotension: (6) Respiratory distress: (7) Elevated liver function tests: (8) Leukocytosis: (9) Bandemia: (10) Tachypnea: (11) Hx of diabetes mellitus: (12) Ureteral stent present: (13) Obstructive sleep apnea: (14) Obesity: (15) Abdominal pain: (16) Interstitial lung disease: (17) Hypertension: (18) Hepatic steatosis: (19) Diabetes: (20) Pyelonephritis: (21) Coagulopathy: (22) Hyponatremia: (23) Hypomagnesemia: (24) Acute urinary retention: (25) Sinus tachycardia: Plan Admission findings: Fever, greater than 101, sinus tachycardia greater than 140, respiratory distress, initially uncontrolled hypertension and then hypotension with systolics in the 90s, leukocytosis with bandemia, hyponatremia and acute kidney injury (baseline creatinine of 1.06, admission creatinine of 1.90 this is 179.2% above baseline) uncontrolled diabetes mellitus, lactic acidosis, coagulopathy with elevated liver function test, acute elevation in high- sensitivity troponin with acute elevation in BNP with normal EKG consistent with acute NSTEMI due to pyelonephritis with recent instrumentation and ureteral stent in place, resulting in severe sepsis Lactic acidosis and severe sepsis with septic shock secondary to pyelonephritis secondary to Enterococcus with positive bacteremia-wbc normal Acute renal failure secondary to the above-baseline creatinine 1.06, today's creatinine is 3.37 which is 317.9% above baseline, over 300% above baseline to be consistent with acute renal failure-improving at cx Sinus tachycardia secondary to severe sepsis that is resulted in acute NSTEMI type II-echo was normal, heart rate improved, troponin trending down further, will start beta-blockers, stress test as an outpatient Thrombocytopenia secondary to sepsis-continue to monitor daily no signs of bleeding acute upper gi bleeding (+hemoccult) - d/c on protonix Acute elevation in BNP this is possibly related to the tachycardia and the severes sepsis with septic shock and the acute kidney injury, betteer today Hyponatremia secondary to the severe dehydration and sepsis-resolved with normal Poorly controlled diabetes mellitus-adjusting sliding scale Hypomagnesemia-supplement Acute elevation of the liver function test with acute elevation in INR consistent with sepsis with coagulopathy-continuing to improve BPH with acute urinary retention-Verdin catheter in place, consider ultrasound kidneys tomorrow Chronic diarrhea-will check stool studies Sarcoidosis-no hypoxia, monitor closely Hypertension by history-hold off on blood pressure medications Generalized arthritis-hold off on NSAIDs Low back pain-continue with tizanidine Hypercholesterolemia will hold off on medication currently with elevated liver function test Depression-continue with home medications Morbid obesity with sleep apnea-use home machine Admission status: Patient with severe sepsis secondary to pyelonephritis with significant lactic acidosis and bandemia, medically necessary treatment will span 2 midnights, likely here for 4 days, inpatient status in the stepdown unit DS: Summary Hospital Course Hospital Course: Patient with admission findings of Admission findings: Fever, greater than 101, sinus tachycardia greater than 140, respiratory distress, initially uncontrolled hypertension and then hypotension with systolics in the 90s, leukocytosis with bandemia, hyponatremia and acute kidney injury (baseline creatinine of 1.06, admission creatinine of 1.90 this is 179.2% above baseline) uncontrolled diabetes mellitus, lactic acidosis, coagulopathy with elevated liver function test, acute elevation in high-sensitivity troponin with acute elevation in BNP with normal EKG consistent with acute NSTEMI due to pyelonephritis with recent instrumentation and ureteral stent in place, resulting in severe sepsis with septic shock, patient condition deteriorated over the first 12 hours, requiring placement of Levophed despite 7 L of IV fluids, responded well to the Levophed, was never hypoxic, did end up having the elevated troponins consistent with acute NSTEMI as well as elevated bated BNP, lites improved to normal at this time, white blood cell count has improved to normal with levofloxacin and Zosyn, blood cultures positive for Enterococcus, sensitivities have not returned, but with overall improvement back to baseline creatinine is again normal troponin trending downward BNP normal liver function test improving thrombocytopenia improving, patient will be discharged home in improving condition. Medication serious. See urology tomorrow for continued procedure for stent removal Time Spent with Patient Time attestation: Total time spent providing and/or coordinating discharge services: Exam Constitutional Vital Signs, click to edit/add: Last Vital Signs Temp 98.6 F 08/25/24 03:00 Pulse 102 H 08/25/24 06:00 Resp 15 08/25/24 04:00 BP 163/89 H 08/25/24 03:00 Pulse Ox 96 08/25/24 03:00 O2 Del Method Room Air 08/25/24 03:00 Documenting provider has reviewed patient's vital signs: yes Common normals: no apparent distress (No shortness of breath); negative for average body habitus HENOH Common normals: normocephalic Chest Common normals: inspection of chest normal and palpation of chest normal Respiratory Common normals: normal respiratory effort, no retractions, no use of accessory muscles and clear to auscultation bilaterally Effort & inspection: normal respiratory pattern, non tachypneic and no respiratory distress Auscultation: no rhonchi and no wheezes Cardio Common normals: regular rate, regular rhythm, S1 normal heart sound, S2 normal heart sound, no gallops and no murmurs Rate: not tachycardic GI Common normals: soft to palpation, non-tender (Resolved), no hepatosplenomegaly and no masses; negative for Normal to inspection, nondistended, normoactive bowel sounds present (Obese) Extremity Common normals: normal to inspection, full ROM, normal capillary refill, no club carson, cyanosis or edema (Still no edema) and no calf tenderness Neuro Common normals: oriented x3, CN's II-XII intact bilaterally, moves all extremities and no focal motor deficits DS: Data Data Completed and Pending Labs on day of discharge: Labs from last 24 hours 08/25/24 08/24/24 08/24/24 05:41 21:22 16:25 WBC 8.3 RBC 3.89 L Hgb 11.5 L Hct 34.1 L MCV 87.7 MCH 29.6 MCHC 33.7 RDW 13.7 Plt Count 165 MPV 11.2 Neut % (Auto) 81.7 H Lymph % (Auto) 7.4 L [place] % (Auto) 9.8 Eos % (Auto) 0.2 L Baso % (Auto) 0.1 L Neut # (Auto) 6.7 H Lymph # (Auto) 0.6 L [place] # (Auto) 0.8 Eos # (Auto) 0.0 Baso # (Auto) 0.0 Abs Immat Gran (auto) 0.07 H Imm/Tot Granulo (auto) 0.8 H PT INR APTT POC Glucose 133 H 144 H 08/24/24 05:47 WBC RBC Hgb Hct MCV MCH MCHC RDW Plt Count MPV Neut % (Auto) Lymph % (Auto) [place] % (Auto) Eos % (Auto) Baso % (Auto) Neut # (Auto) Lymph # (Auto) [place] # (Auto) Eos # (Auto) Baso # (Auto) Abs Immat Gran (auto) Imm/Tot Granulo (auto) PT 10.9 INR 1.03 APTT 30.4 POC Glucose Preliminary micro results at discharge 08/22/24 12:33 Blood Culture Result 1 - Preliminary Blood 08/22/24 12:24 Blood Culture Result 2 - Preliminary Blood NO GROWTH AT 36-48 HOURS. FINAL TO FOLLOW. Discharge Plan Discharge Disposition: Home, Self-Care Condition: Serious Discharge Medications: New pantoprazole [Protonix] 40 mg tablet,delayed release (DR/EC) 40 mg PO DAILY Qty: 30 11RF amoxicillin 500 mg tablet 1,000 mg PO Q12H Qty: 40 0RF Rx Instructions: Needs this plus the augmentin amoxicillin-pot clavulanate 875-125 mg tablet 1 tab PO Q12H Qty: 20 0RF Continued irbesartan 150 mg tablet 150 mg PO DAILY simvastatin 40 mg tablet 40 mg PO .QHS tamsulosin 0.4 mg capsule 0.8 mg PO DAILY tizanidine 4 mg tablet 8 mg PO .QHS metoprolol tartrate 100 mg tablet 100 mg PO BID oxaprozin 600 mg tablet 1,200 mg PO DAILY paroxetine HCl 40 mg tablet 60 mg PO DAILY Activity: increase activity as tolerated Print Language: Romanian Patient Instructions: Amoxicillin/Clavulanate Potassium (By mouth) (Augmentin, Augmentin..., Pantoprazole (By mouth), Verdin Catheter Placement and Care (GEN), Sepsis (DC) Forms: Portal Instructions Follow Up Appointments: Dr. Camacho, Friday August 30, 2024 at 10:00 Please keep urology appointment for August
[2024-08-25] MEDS: POTASSIUM CHLORIDE 40 MEQ in 0.9 % SODIUM CHLORIDE 250 ML 67.5 MEQ IV (07:41)
[2024-08-25] MEDS: INSULIN ASPART 300 UNIT/3 ML PEN SUBQ (07:49)
[2024-08-25 07:54] LABS: Glucometer 152 mg/dL (74-106)
--- NOTE | 2024-08-25 08:03 | CM.NOTE ---
Rounds made with Dr. Camacho. Dr. Camacho reviews plan of care. Discharge to home today. Keep tomorrow appointment with Urologist. Follow up with PCP in one week. [place] verbalizes understanding.
--- NOTE | 2024-08-25 09:02 | PT.DAILY ---
Physical Therapy Daily Note PT Daily Note/Assess Start: 08/24/24 10:59 Freq: Status: Active Protocol: Document 08/25/24 09:00 ALBA (Rec: 08/25/24 09:02 ALBA [id number]) Visit Not Completed Visit Not Completed Visit Not Completed Other Due to: Other Reason Visit Per nursing patient is DC today and patient has been up Not Completed at [place] without AD Physical Therapy Daily Note/Assessment Time In/Time Out Time In 09:00 Time Out 09:00 GG. Functional Abilities and Goals-Complete for Swing Bed Patients Only [id number]. Self-Care [id number]. Mobility
[2024-08-25] MEDS: PAROXETINE HCL 20 MG TABLET 60 MG PO (09:26)
[2024-08-25] MEDS: PANTOPRAZOLE SODIUM 40 MG TABLET.DR PO (09:27)
[2024-08-25] MEDS: TAMSULOSIN HCL 0.4 MG CAPSULE 0.8 MG PO (09:27)
[2024-08-25] MEDS: METOPROLOL TARTRATE 25 MG TABLET PO (09:27)
[2024-08-25] MEDS: POTASSIUM CHLORIDE 10 MEQ ER TABLET 20 MEQ PO (09:28)
[2024-08-25 11:33] LABS: Glucometer 149 mg/dL (74-106)
--- NOTE | 2024-08-26 14:21 | CM.DCFOLLOWU ---
08/26- 1st attempt. No answer
--- NOTE | 2024-08-27 15:16 | CM.DCFOLLOWU ---
2nd attempt. No answer
== END 2024-08-25 12:06 | disposition home or self-care (01) | DRG 698 ==
LOC: ER 15:36 → MS 16:37
PROVIDERS: Internal Medicine; Admitting Provider Family Medicine; Emergency Provider Emergency Medicine; PCP Family Medicine; Visit Provider Family Medicine
DX: T83.592A Infection and inflammatory reaction due to indwelling ureteral stent, initial encounter (principal); A41.81 Sepsis due to Enterococcus; R65.21 Severe sepsis with septic shock; I21.A1 Myocardial infarction type 2; N12 Tubulo-interstitial nephritis, not specified as acute or chronic; Z68.42 Body mass index [BMI] 45.0-49.9, adult; E87.1 Hypo-osmolality and hyponatremia; K92.2 Gastrointestinal hemorrhage, unspecified; D68.4 Acquired coagulation factor deficiency; Y84.6 Urinary catheterization as the cause of abnormal reaction of the patient, or of later complication, without mention of misadventure at the time of the procedure; N40.1 Benign prostatic hyperplasia with lower urinary tract symptoms; R33.9 Retention of urine, unspecified; D86.0 Sarcoidosis of lung; G47.33 Obstructive sleep apnea (adult) (pediatric); E83.42 Hypomagnesemia; E11.65 Type 2 diabetes mellitus with hyperglycemia; E86.0 Dehydration; D69.59 Other secondary thrombocytopenia; K52.9 Noninfective gastroenteritis and colitis, unspecified; I10 Essential (primary) hypertension; M13.89 Other specified arthritis, multiple sites; M54.50 Low back pain, unspecified; E78.00 Pure hypercholesterolemia, unspecified; F32.A Depression, unspecified; E66.01 Morbid (severe) obesity due to excess calories; K76.0 Fatty (change of) liver, not elsewhere classified; Z98.1 Arthrodesis status; Z79.84 Long term (current) use of oral hypoglycemic drugs; Z79.899 Other long term (current) drug therapy; Z87.442 Personal history of urinary calculi
CPT/HCPCS: 36415; 36569; 36592; 36600; 51702; 71045; 74177; 76775; 80053; 81001; 82150; 82800; 82805; 82948; 83605; 83690; 83735; 83880; 84484; 85007; 85025; 85027; 85610; 85730; 87040; 87045; 87046; 87086; 87088; 87150; 87186; 87427; 87493; 93005; 93308; 94667; 94668; 94761; 96361; 96365; 96367; 96375; 96376; 97161; 97165; 97530; 97535; 99285; C1887; G0328; J0780; J1171; J1650; J1720; J2405; J2543; J3475; J3480; P9046; Q9966

== ENCOUNTER 2024-09-14 08:39 | Outpatient (OUT) | payer OTHER, SELFPAY ==
--- NOTE | 2024-09-14 09:00 | NM_ITS ---
Patient Name: JERRY RESTREPO MR#: [id number] : 1970 Exam Date: 09/14/2024 Ordering Doctor: DR DORON ZUÑIGA . RADIOLOGY REPORT PROCEDURE: NM TEGAN PERF SPECT REST STR COMPARISON: None. INDICATIONS: NSTEMI, DYSPNEA TECHNIQUE: Exam Description: Stress/Rest two day protocol gated SPECT Rest Imagin.5 mCi Tc-99m Cardiolite IV on 09/15/2024 Stress Imaging 25.6 mCi Tc-99m Cardiolite IV on 09/14/2024 Exercise Protocol: 0.4 mg Lexiscan given IV Heart Rate (bpm): Rest: 80 Max: 144 PMHR: 85 Blood Pressure: Rest: 168/90 Max: 210/98 Symptoms: Rest and peak stress ECG findings were pending and the exercise portion of the study was pending per attending physician [facility] . For more details please see separate cardiac stress test report. FINDINGS: QUALITY OF STUDY: Good PERFUSION DEFECT: LOCATION: Inferolateral SIZE: Small SEVERITY: Mild TYPE: Reversible WALL MOTION: LV SIZE: 151 mL. TID / TCD: 0.8 LVEF: Calculated EF 67%. SUMMARY: Abnormal Myocardial perfusion imaging study CONCLUSION: Positive nuclear stress images for ischemia, small inferolateral ischemia Normal left ventricle systolic function, EF 67% No transient ischemic dilatation, TID 0.8 EKG stress result is reported separately Dictated by: Mishel Mcgee MD on 09/15/2024 at 18:43 Approved by: Mishel Mcgee MD on 09/15/2024 at 18:49
--- NOTE | 2024-09-14 10:28 | PC.NURSE ---
Nursing Note Cardiac Stress Test Reviewed: Medication, allergies and patient history reviewed. Stress Test: [ x] Patient tolerated stress test well. [ ] Patient unable to tolerate walking on treadmill. Switched to Lexiscan stress test. [x ] No chest pain noted per patient [ ] Chest pain that resolved prior to leaving stress lab. [ ] No dyspnea noted. [x ] Dyspnea that resolved prior to leaving stress lab. [x ] Patient left stress lab asymptomatic and hemodynamically stable. [ ] Patient taken to the Emergency Room due to non-resolving symptoms following stress test. [ x] Patient achieved target heart rate. [ ] Patient unable to achieve target heart rate. [ ] Aminophylline administered as reversal agent to Lexiscan (Regadenoson). [ ] Nitro administered. Nursing Comments:Pt had dyspnea shortly after starting to walk but was able to get to target heartrate for a successful test. Pt had no chest pain and dyspnea resolved within 6 minutes of rest. Pt left stress lab and ambulated to cafeteria for breakfast prior to images.
== END 2024-09-14 08:40 | disposition home or self-care (01) ==
LOC: CARD 08:39
PROVIDERS: PCP Family Medicine; Visit Provider Family Medicine
DX: R60.9 Edema, unspecified (principal); I21.4 Non-ST elevation (NSTEMI) myocardial infarction
CPT/HCPCS: 78452; 93017; A9500

== ENCOUNTER 2024-09-15 10:16 | Outpatient (OUT) | payer OTHER, SELFPAY ==
--- NOTE | 2024-09-14 11:14 | PM.STRESS ---
Stress Test Stress Test Allergies Allergy/AdvReac Type Severity Reaction Status Date / Time No Known Drug Allergies Allergy Verified 03/31/23 14:31 Requesting physician: Gama Camacho Procedure: Treadmill exercise stress test with Cardiolite injection General Information: Reason for Stress Test: [Shortness of breath] Cardiac History and Risk Factors: [Hypertension, obesity] Resting 12 - Lead Electrocardiogram: Normal sinus rhythm Prolonged QTc Abnormal EKG Stress Test: Protocol: [Rom] Exercise Capacity: [Poor] Blood Pressure Response: [Resting hypertension, appropriate response] Rhythm: [Sinus, no significant arrhythmias] ST - Response: [No significant ST-T wave abnormalities] Patient Response: [Dyspnea with minimal exertion; no chest pain] Interpretation: 1. No ischemic EKG changes on treadmill stress test 2. Poor functional capacity 3. No significant arrhythmias seen 4. Rojas treadmill score is 4. Estimated 1 year mortality; 1.3 to 2.9%. Risk category: Moderate risk. Angiography may be indicated. 5. Nuclear images are to be read, interpreted, and reported separately
== END 2024-09-15 10:17 | disposition home or self-care (01) ==
LOC: NM 10:16
PROVIDERS: PCP Family Medicine; Visit Provider Family Medicine
DX: R60.9 Edema, unspecified (principal); I21.4 Non-ST elevation (NSTEMI) myocardial infarction
CPT/HCPCS: 93971

== ENCOUNTER 2024-09-27 15:11 | Outpatient (OUT) | payer OTHER, SELFPAY ==
[2024-09-27 15:34] LABS: Basophils Percent Auto 0.7 % (0.2-2.0); Eosinophils Absolute Auto 0.2 10^3/uL (0.0-0.7); Eosinophils Percent Auto 3.4 % (0.9-7.0); Hematocrit 40.8 % (42.0-54.0); Immature Granulocytes Abs Auto 0.02 10^3/uL (0.00-0.03); Immature Granulocytes Pct Auto 0.4 % (0.0-0.5); Lymphocytes Absolute Auto 1.2 10^3/uL (1.2-3.8); Lymphocytes Percent Auto 20.4 % (20.5-60.0); Mean Corpuscular HGB Conc 34.3 g/dL (29.9-35.2); Mean Corpuscular Hemoglobin 29.6 pg (25.9-34.0); Mean Corpuscular Volume 86.3 fL (80.0-94.0); Mean Platelet Volume 10.7 fL (9.5-13.5); Monocytes Absolute Auto 0.6 10^3/uL (0.3-0.8); Monocytes Percent Auto 10.1 % (1.7-12.0); Neutrophils Absolute Auto 3.7 10^3/uL (1.4-6.5); Platelet Count 224 10^3/uL (150-450); Red Blood Count 4.73 10^6/uL (4.70-6.10); Red Cell Distribution Width 12.8 % (11.0-15.0); White Blood Count 5.7 10^3/uL (4.0-11.0)
[2024-09-27 16:15] LABS: Anion Gap 16.5; Calcium 9.7 mg/dL (8.5-10.1); Carbon Dioxide 22.4 mmol/L (21.0-32.0); Chloride 103 mmol/L (98-107); Estimated GFR (African America >60 (>=60 mL/min/1.73m^2); Estimated GFR (Non-African Ame >60 (>=60 mL/min/1.73m^2); Glucose 129 mg/dL (74-106); Potassium 3.9 mmol/L (3.5-5.1); Sodium 138 mmol/L (136-145)
== END 2024-09-27 15:12 | disposition home or self-care (01) ==
LOC: LAB 15:11
PROVIDERS: PCP Family Medicine; Visit Provider Internal Medicine Interventional Cardiology
DX: R06.02 Shortness of breath (principal); R94.39 Abnormal result of other cardiovascular function study; I10 Essential (primary) hypertension
CPT/HCPCS: 36415; 80048; 85025

== ENCOUNTER 2024-10-23 08:14 | Outpatient (OUT) | payer OTHER, SELFPAY ==
--- NOTE | 2024-10-23 08:17 | US_ITS ---
The [address] [address] Patient Name: JERRY RESTREPO MRN: [id number] date: 1970 Sex: M Assigned Patient Location: US Current Patient Location: US Accession/Order Number: [id number] Exam Date: 10/23/2024 10:36 Report Date: 10/23/2024 10:37 At the request of: DORON ZUÑIGA MD Procedure: US extremity nonvascular RT The right axillary ultrasound HISTORY: Lump felt in the right axillary region one month ago. No lymphadenopathy. No solid lesion or fluid collection. US/US extremity nonvascular RT IMPRESSION: No focal abnormality. Impression dictated by: Manuel Velazquez M.D. 10/23/2024 10:37 AM Dictation Location: [place] [address] Electronically authenticated by: [id number] Y Date: 10/23/2024 10:37
--- OUTSIDE RECORDS SUMMARY | 2024-10-23 08:17 | XMS_ITS | CCD ---
Author Organization [facility] Care Team Providers Care Raisin Separator Operator Name Role Phone SAVANAH, GIACOMO H. Unavailable Unavailable SAVANAH, GIACOMO H. Unavailable Unavailable DORON ZUÑIGA Unavailable Unavailable SAVANAH, GIACOMO H. Unavailable Unavailable SAVANAH, GIACOMO H. Unavailable Unavailable RICH ZUÑIGALAS M Unavailable Unavailable SAVANAH, GIACOMO H. Unavailable Unavailable Unknown, Referring Provider Unavailable Unav ailable Unknown, Referring Provider Unavailable Unav ailable Unavailable Unavailable Halie Sam Unavailable ZARA Carbajal, DR SAL Primary Care Unavailable PAY ., DR GANNON Admitting Unavailable PAY ., DR GANNON Consulting Unavailable PAY ., DR GANNON Attending Unavailable YURY FERNANDEZ Consulting Unavailable ZARA ., DR SAL Admitting Unavailable ZARA ., DR SAL Primary Care Unavailable HOJennifer ., DR SAL Consulting Unavailable ZARA ., DR SAL Attending Unavailable Doron Zuñiga Primary Care Physician [phone] Alex PANG Attending Unavailable TIM KAPLAN Attending Unavailab Doron Betancur Referring Unavailable TIM KAPLAN Attending Unavailab TIM Chahal Admitting Unavailab le Unavailable Primary Care Provider Unavailabl e Manuel Conklin DO Attending Provider Manuel Conklin Attending Unavailable Manuel Conklin Admitting Unavailable Doron Zuñiga MD Primary Care Provider Alex PANG Attending Unavailable JAIME KAPLAN Admitting Unavailable JAIME KAPLAN Attending Unavailable SOFIE DURBIN Referring Unavailable DURBINSOFIE STOLL Admitting Unavailable SOFIE DURBIN Attending Unavailable SOFIE DURBIN Referring Unavailable SOFIE DURBIN Admitting Unavailable SOFIE DURBIN Attending Unavailable DORON ZUÑIGA Primary Care Unavailable MOUKARBEL, BO Attending Unavailable Allergies Allergy Classification Reported Allergen(s) Allergy Type Date of Onset Reaction(s) Facility (2 sources) No Known Medication Allergies; Translations: [No Known Medication Allergies] Propensity to adverse reactions (disorder) [facility] Repository Medications Current Medications Medication Drug [...] pain scores based on patient preference? Yes albuterol 0.83 mg/ml inhalation solution (1 source) beta2-Adrenergic Agonist Start: 08-26-2024 2.5 mg, nebulization, Once as needed, wheezing, Starting on Hillary 08/26/24 at 1606, For 1 dose, Recovery (only) amoxicillin 500 mg oral tablet (1 source) Penicillin-class Antibacterial Start: 08-25-2024 take 1 tablet by mouth every twelve hours amoxicillin (Amoxil) 500 mg tablet TAKE 1 TABLET BY MOUTH EVERY 12 HOURS FOR SEPSIS 08/25/2024 Active amoxicillin 875 mg / clavulanate 125 mg oral tablet (1 source) Penicillin-class Antibacterial Start: 08-25-2024 take 1 tablet by mouth every twelve hours amoxicillin-clavula kemal (Augmentin) 875-125 mg tablet Take 1 tablet by mouth every 12 hours. 08/25/2024 Active bisacodyl 5 mg delayed release oral tablet (1 source) Stimulant Laxative Start: 07-29-2024 take 1 tablet by mouth every twenty-four hours as needed calcium chloride 0.0014 meq/ml / potassium chloride 0.004 meq/ml / sodium chloride 0.103 meq/ml / sodium lactate 0.028 meq/ml injectable solution (1 source) Start: 08-26-2024 End: 08-27-2024 take 100 mL intravenously every hour 100 mL/hr, intravenous, Continuous, Starting on Hillary 08/26/24 at 1630, For 1 day, Recovery (only) ceFAZolin 2000 mg injection (1 source) Cephalosporin [...] 07/30/2024 10:32 AM EDT 07/30/2024 08/02/2024 Active diphenhydrAMINE (1 source) Histamine-1 Receptor Antagonist Start: 08-26-2024 12.5 mg, intravenous, Once as needed, itching, allergic reaction, Starting on Hillary 08/26/24 at 1606, For 1 dose, Recovery (only) fenofibrate 160 mg oral tablet (10 sources) Peroxisome Proliferator Receptor alpha Agonist Start: 02-05-2023 take 160 mg by mouth once daily 160 mg, oral, Daily, First dose on Fri07/30/24 at 0900, Recovery & On Unit Fenofibrate Acti ve 1 ml fentaNYL 0.05 mg/ml injection (3 sources) Opioid Agonist Start: 08-26-2024 12.5 mcg, intr avenous, Every 5 min PRN, pain mild (1-3), first line, Starting on Hillary 08/26/24 at 1606, Recovery (only), Max total of 200 micrograms regardless of dose., If ordered PRN for pain, nurse is permitted to administer this medication for higher pain scores based on patient preference? Yes Start: 07-29-2024 End: 07-29-2024 intravenous, Once PRN Proced ure, Starting on Hillary 07/29/24 at 1037, For 1 dose, Intraprocedure Gentamicin Sulfate (HALFWAY) (1 source) Start: 10-11-2018 take 2 drop(s) into the eye(s) every four hours Garamycin 0.3 % 2 drops in affected eye Ophthalmic q 4 hours while awake for 5 days Oct, Active 1 ml hydrALAZINE hydrochloride 20 mg/ml injection (2 sources) Arteriolar Vasodilator Start: 08-26-2024 5 mg, intravenous, Administer over 2 Minutes, Every 30 min PRN, systolic blood pressure greater than 180 mmHg and heart rate less than 60 BPM, Starting on Hillary 08/26/24 at 1606, For 2 doses, Recovery (only) Start: 07-29-2024 take 10 mg intravenously every six hours as needed 1 ml HYDROmorphone hydrochloride 1 mg/ml cartridge (3 sources) Opioid Agonist Start: 08-26-2024 0.5 mg, intrav enous, Every 5 min PRN, pain moderate (4-6), first line, Starting on Hillary 08/26/24 at 1606, Recovery (only), Max total of 4 mg regardless of dose. Start: 08-26-2024 1 mg, intraven ous, Every 5 min PRN, pain severe (7-10), first line, Starting on Hillary 08/26/24 at 1606, Recovery (only), Max total of 4 mg regardless of dose. Start: 07-29-2024 End: 07-29-2024 0.5 mg, intravenous, Every 5 min PRN, pain moderate (4-6), first line, Starting on Hillary 07/29/24 at 1849, Recovery (only), Max total of 4 mg regardless of dose. irbesartan 150 mg oral tablet (4 sources) Angiotensin 2 Receptor Ellis Start: 04-02-2024 [...] Unit metFORMIN hydrochloride 500 mg oral tablet (4 sources) Biguanide Start: 04-02-2024 take 500 mg by mouth twice daily 500 mg, oral, 2 times daily (morning and late afternoon), First dose on Fri07/30/24 at 0800, Recovery & On Unit 5 ml midazolam 1 mg/ml injection (4 sources) Benzodiazepine Start: 08-26-2024 1 mg, intravenous, Once as needed, anxiety, Starting on Hillary 08/26/24 at 1606, For 1 dose, Recovery (only) Start: 07-29-2024 End: 07-29-2024 2 mg, intravenous, Once, On Hillary 07/29/24 at 1430, For 1 dose, Preprocedure Start: 07-29-2024 End: 07-29-2024 intravenous, Once PRN Proced ure, Starting on Hillary 07/29/24 at 1037, For 1 dose, Intraprocedure 2 ml ondansetron 2 mg/ml injection (3 sources) Serotonin-3 Receptor Antagonist Start: 08-26-2024 4 mg, intravenous, O nce as needed, nausea/vomiting, first line, Starting on Hillary 08/26/24 at 1606, For 1 dose, Recovery (only), When administering via IV Push, administer over 3-5 minutes. Start: 07-29-2024 take 1 tablet by silvia th every eight hours as needed ondansetron (Zofran) tablet 4 mg Start: 07-29-2024 End: 07-29-2024 4 mg, intravenous, Once as n eeded, nausea/vomiting, first line, Starting on Hillary 07/29/24 at 1849, For 1 dose, Recovery (only), When administering via IV Push, administer over 3-5 minutes. oxaprozin 600 mg oral tablet (13 sources) Nonsteroidal Anti-inflammatory Drug Start: 02-05-2023 take 2 tablets by mouth once daily oxaprozin 600 mg Tab 1,200 mg = 2 tab(s), Oral, Daily, Refills(s) 0 Start Date: 02/05/23 Status: Ordered Oxaprozin Active Oxaprozin TABS Q uantity: 0 Refills: 0 Ordered: 22-Nov-2020 DO Active oxyCODONE hydrochloride 5 mg oral tablet (4 sources) Opioid Agonist Start: 08-26-2024 take 1 tablet by mouth every four hours as needed 5 mg, oral, Every 4 hours PRN, pain severe (7-10), second line, Starting on Hillary 08/26/24 at 1606, Recovery (only), When able to take oral medications., If ordered PRN for pain, nurse is permitted to administer this medication for higher pain scores based on patient preference? Yes Start: 08-26-2024 End: 08-29-2024 take 1 tablet by mouth every six hours in the evening for pain oxyCODONE (Roxicodone) 5 mg immediate release tablet Indications: Right kidney stone Take 1 tablet (5 mg) by mouth every 6 hours if needed for severe pain (7 - 10) for up to 3 days. 8 tablet 08/26/2024 4:33 PM EDT 08/26/2024 08/29/2024 Active Start: 07-29-2024 End: 08-02-2024 take 1 tablet by mouth every six hours for pain oxyCODONE (Roxicodone) 5 mg immediate release tablet Indications: Right kidney stone Take 1 tablet (5 mg) by mouth every 6 hours if needed for severe pain (7 - 10) for up to 3 days. 8 tablet 07/30/2024 10:32 AM EDT 07/30/2024 08/02/2024 Active oxygen (O2) therapy (4 sources) Start: 08-26-2024 inhalation, Co ntinuous PRN - O2/gases, other, Starting on Hillary 08/26/24 at 1606, Recovery (only), Device: Nasal Cannula, Rate in liters per minute: Other, Custom Value: 1-6 LPM, Keep O2 Sat Above: 92% Start: 07-29-2024 inhalation, Co ntinuous PRN - O2/gases, other, Starting on Hillary 07/29/24 at 2255, Device: Nasal Cannula, Rate in liters per minute: Other, Custom Value: 1-4 LPM, Keep O2 Sat Above: 92% Start: 07-29-2024 End: 07-29-2024 inhalation, Continuous - 02/ gases, First dose on Hillary 07/29/24 at 1915, Recovery (only), Device: Simple Face Mask, Rate in Liters per minute: 10 LPM, Keep O2 Sat Above: 92% Start: 07-29-2024 End: 07-29-2024 Continuous PRN, Starting on Fri07/29/24 at 1017, Intraprocedure pantoprazole 40 mg delayed release oral tablet (1 source) Proton Pump Inhibitor Start: 08-25-2024 take 1 tablet by mouth in the morning pantoprazole (ProtoNix) 40 mg EC tablet Take 1 tablet (40 mg) by mouth early in the morning.. 08/25/2024 Active PARoxetine hydrochloride 20 mg oral tablet (10 sources) Serotonin Reuptake Inhibitor Start: 07-30-2024 take [...] A ctive simvastatin 40 mg oral tablet (9 sources) HMG-CoA Reductase Inhibitor Start: 07-29-2024 take 40 mg by mouth once daily in the evening 40 mg, oral, Every evening, First dose on Fri07/29/24 at 2200, Recovery & On Unit Start: 02-05-2023 simvastatin 0 Refill(s), Refills(s) 0 Start Date: 02/05/23 Status: Ordered Simvastatin Acti ve SUMAtriptan 100 mg oral tabl et (4 sources) Serotonin-1b and Serotonin-1d Receptor Agonist Start: 07-29-2024 take 1 tablet by silvia th once, then take 1 tablet by mouth every two hours SUMAtriptan (Imitrex) 100 mg tablet Take 1 tablet (100 mg) by mouth 1 time if needed for migraine. May repeat an additional dose after 2 hours Active tamsulosin hydrochloride 0.4 mg oral capsule (8 sources) alpha-Adrenergic Ellis Start: 07-30-2024 End: 08-29-2024 take 2 capsules by mouth once daily tamsulosin (Flomax) 0.4 mg 24 hr capsule Indications: Right kidney stone Take 2 capsules (0.8 mg) by mouth once daily. 60 capsule 07/30/2024 10:32 AM EDT 07/30/2024 08/29/2024 Active Start: 07-30-2024 take 1 capsule by mo uth once daily at mealtime 0.8 mg, oral, [...] day(s), # 60 cap(s), Refills(s) 11, Pharmacy: [id number], 180, cm, 03/30/24 9:46:00 EST, Height/Length Dosing, 149.8, kg, 03/30/24 9:46:00 EST, Weight Dosing Start Date: 03/30/24 Stop Date: 03/25/25 Status: Ordered tiZANidine 4 mg oral capsule (3 sources) Central alpha-2 Adrenergic Agonist take 1 capsule by mouth once daily at bedtime tiZANidine (Zanaflex) 4 mg capsule Take 1 capsule (4 mg) by mouth once daily at bedtime. Active Completed/Discontinued Medications Medication Drug Class(es) Dates Sig (Normalized) Sig (Original) iohexol (OMNIPaque) 350 mg iodine/mL solution 50 [...] 5 ml metoprolol tartrate 1 mg/ml injection (15 sources) beta-Adrenergic Ellis Start: 07-29-2024 End: 07-29-2024 [...] 0 Refills: 0 Ordered: 22-Nov-2020 DO Active predniSONE 10 mg oral tablet (6 sources) [...] Complete Problems Problem Classification Problem Date Documented Da te Episodic/Chronic Abdominal pain (8 sources) Left lower quadrant pain; Translations: [Left lower quadrant pain] Onset: 02-11-2023 Episodic Anal and rectal conditions (1 source) Rectal polyp; Translations: [Rectal polyp] Onset: 04-22-2023 Episodic Calculus of urinary tract (20 sources) History of calculus of kidney; Translations: [Kidney stone] Onset: 03-30-2024 02-05-2023 Episodic Diabetes mellitus without complication (7 sources) Type 2 diabetes mellitus without complications; Translations: [Diabetes mellitus] Onset: 09-17-2022 02-05-2023 Chronic Disorders of lipid metabolism (7 sources) Hypercholesterolemia; Translations: [Mixed hyperlipidemia] Onset: 09-20-2024 02-05-2023 Chronic Diverticulosis and diverticulitis (5 sources) Diverticula of intestine; Translations: [Diverticulosis of large intestine without perforation or abscess without bleeding] Onset: 04-22-2023 Chronic Essential hypertension (7 sources) Hypertensive disorder; Translations: [Essential (primary) hypertension] Onset: 09-20-2024 3 Chronic Fluid and electrolyte disorders (1 source) Dehydration; Translations: [DEHYDRATION] Onset: 09-17-2022 Episodic Gastrointestinal hemorrhage (6 sources) Hemorrhage of rectum and anus; Translations: [Hemorrhage of anus and rectum] Onset: 02-11-2023 Episodic Genitourinary symptoms and ill-defined conditions (3 sources) Microscopic hematuria; Translations: [Other microscopic hematuria] Onset: 03-30-2024 Episodic Headache; including migraine (1 source) Headache; including migraine; Translations: [HEADACHE UNSPECIFIED] Onset: 09-17-2022 Hyperplasia of prostate (5 sources) Benign prostatic hypertrophy with outflow obstruction; Translations: [Benign prostatic hyperplasia with lower urinary tract symptoms] Onset: 03-30-2024 Chronic Immunity disorders (9 sources) Sarcoidosis; Translations: [Sarcoidosis] 02-05-2023 Chronic Lymphadenitis (20 sources) Mediastinal lymphadenopathy; Translations: [Hilar lymphadenopathy ] 02-05-2023 Episodic Nausea and vomiting (4 sources) Nausea; Translations: [NAUSEA] Onset: 09-13-2022 Episodic Nutritional deficiencies (5 sources) Vitamin D deficiency 02-05-2023 Chronic Other aftercare (1 source) Other nursing home (current) drug therapy; Translations: [OTH [facility] CURRENT DRUG THERAPY] Onset: 09-17-2022 Episodic Other and unspecified benign neoplasm (4 sources) Hyperplastic polyp of large intestine 04-22-2023 Episodic Other circulatory disease (4 sources) H/O: hypertension; Translations: [Personal history of other diseases of circulatory system] Episodic Other connective tissue disease (2 sources) Arthrodesis status; Translations: [Arthrodesis status] Onset: 04-30-2018 Episodic Other connective tissue disease (1 source) Myalgia, unspecified site; Translations: [MYALGIA UNSPECIFIED SITE] Onset: 09-17-2022 Episodic Other diseases of kidney and ureters (1 source) Urinary tract obstruction; Translations: [Other obstructive and reflux uropathy] Onset: 03-30-2024 Episodic Other liver diseases (5 sources) Steatosis of liver 02-05-2023 Chronic Other liver diseases (5 sources) Large liver 02-05-2023 Episodic Other lower respiratory disease (9 sources) Interstitial lung disease; Translations: [Postinflammatory pulmonary fibrosis] 02-05-2023 Chronic Other lower respiratory disease (5 sources) Dyspnea on exertion; Translations: [Other respiratory abnormalities] Episodic Other lower respiratory disease (3 sources) Shortness of breath; Translations: [SHORTNESS OF BREATH] Onset: 09-17-2022 Episodic Other male genital disorders (4 sources) Male erectile dysfunction, unspecified; Translations: [Erectile dysfunction] Onset: 03-30-2024 Chronic Other nutritional; endocrine; and metabolic disorders (6 sources) Body mass index 40+ - severely obese; Translations: [Body mass index (BMI) 50.0-59.9, adult] Onset: 02-11-2023 Chronic Other nutritional; endocrine; and metabolic disorders (5 sources) Morbid obesity 02-11-2023 Chronic Other screening for suspected conditions (not mental disorders or infectious disease) (11 sources) Encounter for screening for malignant neoplasm of prostate; Translations: [Imaging of abdomen abnormal] Onset: 08-16-2022 Episodic Residual codes; unclassified (9 sources) Obstructive sleep apnea syndrome; Translations: [Obstructive sleep apnea (adult)(pediatric)] 02-05-2023 Chronic Residual codes; unclassified (1 source) Pain, unspecified; Translations: [Pain, unspecified] Onset: 04-30-2018 Unclassified (5 sources) Patient encounter status; Translations: [Preop testing] 03-30-2024 Unclassified (1 source) CONTACT W/AND (SUSP) EXPOS COVID-19; Translations: [CONTACT W/AND (SUSP) EXPOS COVID-19] Onset: 09-17-2022 Urinary tract infections (6 sources) Urinary tract infection, site not specified; Translations: [Urinary tract infectious disease] Onset: 09-17-2022 Episodic Viral infection (1 source) Disease caused by 2019-nCoV; Translations: [COVID-19] 04-23-2023 Episodic Comment on above: Problem List clean-u p per request of Phys. EHR Cmte Results Test Name Value Interpretation Reference Range Facil ity 29on 09-20-2024 29 Addended by: BO PARTIDA on: 09/20/2024 01:42 PM Modules accepted: Orders Normal [facility] Office Visiton 09-20-2024 Follow-up visit [id number] Jerry Wilson 1970 M Date Provider Department Center 09/20/2024 BO [facility]OTEN [facility] Family History Problem Relation Age of Onset Heart disease Maternal Grandfather Diabetes Paternal Grandmother Family Status - Relation Status Age at Mother Alive Father Alive Brother Alive Maternal Grandfather Paternal Grandmother Level of Service:27912 [place] OFFICE/OUTPATIENT ESTABLISHED HIGH MDM 40 MIN Normal [facility] Ambulatory Visit Summaryon 0 08-27-2024 Ambulatory Visit Summary Ambulatory Visit Summary JERRY WILSON :1970 Visit Date:08/27/2024 Ambulatory Visit Instructions Your Care Team Attending Physician - POLY ISIDRO, Alex Cohen Primary Care Physician - Doron Zuñiga MD This Is Your Medications List fenofibrate (fenofibrate 160 mg oral tablet) irbesartan (irbesartan 150 mg Tab) metformin (metformin 500 mg Tab) metoprolol (metoprolol tartrate 100 mg Tab) oxaprozin (oxaprozin 600 mg Tab) paroxetine (paroxetine 40 mg Tab) tamsulosin (Flomax 0.4 mg Cap) Procedures Performed Colonoscopy (04/09/2023), Arthroscopy of shoulder, Fusion of lumbar spine, Fusion of lumbar spine, Repair of left inguinal hernia, Repair of meniscus, Repair of right inguinal hernia. Medications What How Much When Instructions Unchanged fenofibrate (fenofibrate 160 mg oral tablet) 1 Tablets By Mouth Every day Unchanged irbesartan (irbesartan 150 mg Tab) By Mouth Every day Unchanged metformin (metformin 500 mg Tab) 1 Tablets By Mouth 2 times a day Unchanged metoprolol (metoprolol tartrate 100 mg Tab) 1 Tablets By Mouth 2 times a day Unchanged oxaprozin (oxaprozin 600 mg Tab) 2 Tablets By Mouth Every day Unchanged paroxetine (paroxetine 40 mg Tab) 1 Tablets By Mouth Every day Unchanged tamsulosin (Flomax 0.4 mg Cap) 2 Capsules By Mouth Every day Duration: 30 Days Allergies No Known Allergies No Known Medication [...] for choosing us for your care. Normal [facility] FL FLUORO IMAGES NO CHARGEon 08-26-2024 FL FLUORO IMAGES NO CHARGE These images are not reportable by radiology and will not be interpreted by Radiologists. Normal [facility] Glucose Test strip manual (B ld) [Mass/Vol]on 08-26-2024 Glucose [Mass/Vol] 140 mg/dL High 74 - 99 mg/dL [facility] Interpretation and review of laboratory results Abnormal [facility] Glucose [Mass/Vol] 140 mg/dL High 74-99 [facility] Comment on above: Performed By: #### 5 8077-9 #### CHARISMA AVILES ([id number]) [facility] [place] [place] [address] [place] [address] Glucose [Mass/Vol] 143 mg/dL High 74 - 99 mg/dL [facility] Interpretation and review of laboratory results Abnormal [facility] Glucose [Mass/Vol] 143 mg/dL High 74-99 [facility] Comment on above: Performed By: #### 5 [id number] #### CHARISMA AVILES ([id number]) [facility] [place] [place] [address] [place] [address] XR tomography Unspecified giacomo dy regionon 08-26-2024 These images are not reportable by radiology and will not be interpreted by Radiologists. IMAGING Urine Cultureon 08-22-2024 Bacteria identified Cx Nom (U) ORGANISM: Enterococcus faecalis (O:ENTFAC) Nemo Count >100,000 Aerobic ALAINA Charge (PCMIC38) ---- SUSCEPTIBILITY --- ORGANISM: O:ENTFAC ANTIBIOTIC INTERPRETATION ALAINA Ampicillin S <2 Ciprofloxacin S <1 Daptomycin S 1 Levofloxacin S <1 Linezolid S 2 Nitrofurantoin S <32 Penicillin S 2 Tetracycline S <4 Vancomycin S 2 S = SUSCEPTIBLE I = INTERMEDIATE R = RESISTANT BLANK = DATA NOT AVAILABLE, OR DRUG NOT ADVISABLE OR TESTED R* = RESISTANCE DUE TO EXTENDED SPECTRUM BETA-LACTAMASES ESBL = EXTENDED SPECTRUM BETA-LACTAMASE TFG = THYMIDINE-DEPENDENT STRAIN ZHANNA = BETA-LACTAMASE POSITIVE IB = INDUCIBLE BETA-LACTAMASE. APPEARS IN PLACE OF 'S' WITH SPECIES KNOWN TO POSSESS INDUCIBLE BETA-LACTAMASES. POTENTIALLY THEY MAY BECOME RESISTANT TO ALL B-LACTAM DRUGS. PERFORMED BY: [place] [address] PATHOLOGIST CHARM FILTER OPERATOR HELPER RAKAN PÉREZ M.D. Normal [facility] Comment on above: Performed By: #### C UU #### [address] Basic metabolic 2000 panelon 07-30-2024 Anion gap [Moles/Vol] 14 mmol/L 10 - 20 mmol/L [facility] Calcium [Mass/Vol] 8.9 mg/dL 8.6 - 10. 3 mg/dL [facility] Chloride [Moles/Vol] 101 mmol/L 98 - 107 mmol/L [facility] CO2 [Moles/Vol] 27 mmol/L 21 - 32 mmol/L [facility] Creatinine [Mass/Vol] 1.03 mg/dL 0.50 - 1.30 mg/dL [facility] GFR/1.73 sq M.predicted among non-blacks MDRD (S/P/Bld) [Vol rate/Area] 88 mL/min/{1.73_m2} - PINF [facility] Comment on above: Calculations of jeanette mated GFR are performed using the 2020 CKD-EPI Study Refit equation without the race variable for the IDMS-Traceable creatinine methods. https://jasn.asnjournals.org/content//ASN.4358673 988 Glucose [Mass/Vol] 171 mg/dL High 74 - 99 mg/dL [facility] Interpretation and review of laboratory results Abnormal [facility] Potassium [Moles/Vol] 3.6 mmol/L 3.5 - 5.3 mmol/L [facility] Sodium [Moles/Vol] 138 mmol/L 136 - 145 mmol/L [facility] Urea nitrogen [Mass/Vol] 15 mg/dL 6 - 23 mg/dL [facility] Anion gap [Moles/Vol] 14 mmol/L Normal 10-20 [facility] Comment on above: Performed By: #### 5 8077-9 #### CHARISMA AVILES ([id number]) [facility] [place] [place] [address] [place] [address] Calcium [Mass/Vol] 8.9 mg/dL Normal 8.6-10.3 [facility] Comment on above: Performed By: #### 5 8077-9 #### CHARISMA AVILES ([id number]) [facility] [place] [place] [address] [place] [address] Chloride [Moles/Vol] 101 mmol/L Normal 98-107 [facility] Comment on above: Performed By: #### 5 8077-9 #### CHARISMA AVILES ([id number]) [facility] [place] [place] [address] [place] [address] CO2 [Moles/Vol] 27 mmol/L Normal 21-32 [facility] Comment on above: Performed By: #### 5 8077-9 #### CHARISMA AVILES ([id number]) [facility] [place] [place] [address] [place] [address] Creatinine [Mass/Vol] 1.03 mg/dL Normal 0.50-1.30 [facility] Comment on above: Performed By: #### 5 8077-9 #### CHARISMA AVILES ([id number]) [facility] [place] [place] [address] [place] [address] Glomerular filtration rate/1.73 sq M.predicted 88 mL/min/1.73m*2 Normal >60 [facility] Comment on above: Result Comment: Calc ulations of estimated GFR are performed using the 2020 CKD-EPI Study Refit equation without the race variable for the IDMS-Traceable creatinine methods. https://jasn.asnjournals.org/content//ASN.8746961 988 Performed By: #### 5 [id number] #### CHARISMA AVILES ([id number]) [facility] [place] [place] [address] [place] [address] Glucose [Mass/Vol] 171 mg/dL High 74-99 [facility] Comment on above: Performed By: #### 5 8077-9 #### CHARISMA AVILES ([id number]) [facility] [place] [place] [address] [place] [address] Potassium [Moles/Vol] 3.6 mmol/L Normal 3.5-5.3 [facility] Comment on above: Performed By: #### 5 8077-9 #### CHARISMA AVILES ([id number]) [facility] [place] [place] [address] [place] [address] Sodium [Moles/Vol] 138 mmol/L Normal 136-145 [facility] Comment on above: Performed By: #### 5 8077-9 #### CHARISMA AVILES ([id number]) [facility] [place] [place] [address] [place] [address] Urea nitrogen [Mass/Vol] 15 mg/dL Normal 6-23 [facility] Comment on above: Performed By: #### 5 8077-9 #### CHARISMA AVILES ([id number]) [facility] [place] [place] [address] [place] [address] CBC panel Auto (Bld)on 07-30 Erythrocyte distribution width (RBC) [Ratio] 12.9 % 11.5 - 14.5 % [facility] Hematocrit (Bld) [Volume fraction] 40.6 % Low 41.0 - 52.0 % [facility] Hemoglobin (Bld) [Mass/Vol] 13.6 g/dL 13.5 - 17.5 g/dL [facility] Interpretation and review of laboratory results Abnormal [facility] MCH (RBC) [Entitic mass] 29.4 pg 26.0 - 34.0 pg [facility] MCHC (RBC) [Mass/Vol] 33.5 g/dL 32.0 - 36.0 g/dL [facility] MCV (RBC) [Entitic vol] 88 fL 80 - 100 fL [facility] Nucleated RBC/100 WBC (Bld) [Ratio] 0 % [facility] Platelets (Bld) [#/Vol] 211 10*3/uL [facility] RBC (Bld) [#/Vol] 4.62 10*6/uL [facility] WBC (Bld) [#/Vol] 9.5 10*3/uL [facility] Erythrocyte distribution width (RBC) [Ratio] 12.9 % Normal 11.5-14.5 [facility] Comment on above: Performed By: #### 5 8077-9 #### CHARISMA AVILES ([id number]) [facility] [place] [place] [address] [place] [address] Hematocrit (Bld) [Volume fraction] 40.6 % Low 41.0-52.0 [facility] Comment on above: Performed By: #### 5 8077-9 #### CHARISMA AVILES ([id number]) [facility] [place] [place] [address] [place] [address] Hemoglobin (Bld) [Mass/Vol] 13.6 g/dL Normal 13.5-17.5 [facility] Comment on above: Performed By: #### 5 8077-9 #### CHARISMA AVILES ([id number]) [facility] [place] [place] [address] [place] [address] MCH (RBC) [Entitic mass] 29.4 pg Normal 26.0-34.0 [facility] Comment on above: Performed By: #### 5 8077-9 #### CHARISMA AVILES ([id number]) [facility] [place] [place] [address] [place] [address] MCHC (RBC) [Mass/Vol] 33.5 g/dL Normal 32.0-36.0 [facility] Comment on above: Performed By: #### 5 8077-9 #### CHARISMA AVILES ([id number]) [facility] [place] [place] [address] [place] [address] MCV (RBC) [Entitic vol] 88 fL Normal 80-100 [facility] Comment on above: Performed By: #### 5 8077-9 #### CHARISMA AVILES ([id number]) [facility] [place] [place] [address] [place] [address] Nucleated RBC/100 WBC (Bld) [Ratio] 0.0 /100 WBCs Normal 0.0-0.0 [facility] Comment on above: Performed By: #### 5 8077-9 #### CHARISMA AVILES (91945) [facility] [place] [place] [address] [place] [address] Platelets (Bld) [#/Vol] 211 x10*3/uL Normal 150-450 [facility] Comment on above: Performed By: #### 5 8077-9 #### CHARISMA AVILES ([id number]) [facility] [place] [place] [address] [place] [address] RBC (Bld) [#/Vol] 4.62 x10*6/uL Normal 4.50-5.90 [facility] Comment on above: Performed By: #### 5 8077-9 #### CHARISMA AVILES ([id number]) [facility] [place] [place] [address] [place] [address] WBC (Bld) [#/Vol] 9.5 x10*3/uL Normal 4.4-11.3 [facility] Comment on above: Performed By: #### 5 8077-9 #### CHARISMA AVILES ([id number]) [facility] [place] [place] [address] [place] [id number] Basic metabolic 2000 panelon 07-29-2024 Anion gap [Moles/Vol] 18 mmol/L 10 - 20 mmol/L [facility] Calcium [Mass/Vol] 8.8 mg/dL 8.6 - 10. 3 mg/dL [facility] Chloride [Moles/Vol] 101 mmol/L 98 - 107 mmol/L [facility] CO2 [Moles/Vol] 22 mmol/L 21 - 32 mmol/L [facility] Creatinine [Mass/Vol] 1.09 mg/dL 0.50 - 1.30 mg/dL [facility] GFR/1.73 sq M.predicted among non-blacks MDRD (S/P/Bld) [Vol rate/Area] 82 mL/min/{1.73_m2} - PINF [facility] Comment on above: Calculations of jeanette mated GFR are performed using the 2020 CKD-EPI Study Refit equation without the race variable for the IDMS-Traceable creatinine methods. https://jasn.asnjournals.org/content//ASN.9238306 988 Glucose [Mass/Vol] 266 mg/dL High 74 - 99 mg/dL [facility] Interpretation and review of laboratory results Abnormal [facility] Potassium [Moles/Vol] 4.1 mmol/L 3.5 - 5.3 mmol/L [facility] Sodium [Moles/Vol] 137 mmol/L 136 - 145 mmol/L [facility] Urea nitrogen [Mass/Vol] 17 mg/dL 6 - 23 mg/dL [facility] Anion gap [Moles/Vol] 18 mmol/L Normal 10-20 [facility] Comment on above: Performed By: #### 5 8077-9 #### CHARISMA AVILES ([id number]) [facility] [place] [place] [address] [place] [address]958645 Calcium [Mass/Vol] 8.8 mg/dL Normal 8.6-10.3 [facility] Comment on above: Performed By: #### 5 8077-9 #### CHARISMA AVILES ([id number]) [facility] [place] [place] [address] [place] [address] Chloride [Moles/Vol] 101 mmol/L Normal 98-107 [facility] Comment on above: Performed By: #### 5 8077-9 #### CHARISMA AVILES ([id number]) [facility] [place] [place] [address] [place] [address] CO2 [Moles/Vol] 22 mmol/L Normal 21-32 [facility] Comment on above: Performed By: #### 5 8077-9 #### CHARISMA AVILES ([id number]) [facility] [place] [place] [address] [place] [address] Creatinine [Mass/Vol] 1.09 mg/dL Normal 0.50-1.30 [facility] Comment on above: Performed By: #### 5 8077-9 #### CHARISMA AVILES ([id number]) [facility] ([facility] [place] [address] [place] [address] Glomerular filtration rate/1.73 sq M.predicted 82 mL/min/1.73m*2 Normal >60 [facility] Comment on above: Result Comment: Calc ulations of estimated GFR are performed using the 2020 CKD-EPI Study Refit equation without the race variable for the IDMS-Traceable creatinine methods. https://jasn.asnjournals.org/content/early/ASN.6865570 988 Performed By: #### 5 8077-9 #### CHARISMA AVILES (33568) [facility] [place] [place] [address] [place] [address] Glucose [Mass/Vol] 266 mg/dL High 74-99 [facility] Comment on above: Performed By: #### 5 8077-9 #### CHARISMA AVILES ([id number]) [facility] [place] [place] [address] [place] [address] Potassium [Moles/Vol] 4.1 mmol/L Normal 3.5-5.3 [facility] Comment on above: Performed By: #### 5 8077-9 #### CHARISMA AVILES ([id number]) [facility] [place] [place] [address] [place] [address] Sodium [Moles/Vol] 137 mmol/L Normal 136-145 [facility] Comment on above: Performed By: #### 5 8077-9 #### CHARISMA AVILES ([id number]) [facility] ([facility] [place] [id number] [place], [place] [id number] Urea nitrogen [Mass/Vol] 17 mg/dL Normal 6-23 [facility] Comment on above: Performed By: #### 5 8077-9 #### CHARISMA AVILES ([id number]) [facility] ([facility] [place] [address] [place] [address] CALCULI (STONE) ANALYSISon 0 - Appearance (Stone) See Note Normal [facility] Comment on above: Order Comment: OVER is reported when the result is greater than the clinically reportable range. Result Comment: Spec imen consists of numerous brown and parker calculi fragments. The total weight is 507 mg. Performed By: #### 5 8077-9 #### CHARISMA AVILES ([id number]) [facility] ([facility] [place] [id number] [place] [address] Composition Nom (Stone) See Note Normal [facility] Comment on above: Order Comment: OVER [...] composition determined by FTIR analysis. Performed By: [employer] [address] [place] [address] [employer] Tender: Al Dumont MD, PhD CLIA Number: [id number] Performed By: #### 5 8077-9 #### CHARISMA AVILES (06329) [facility] ([facility] [place] [address] [place] [address] Specimen weight (Unsp spec) 507 mg Normal [facility] Comment on above: Order Comment: OVER is reported when the result is greater than the clinically reportable range. Performed By: #### 5 8077-9 #### CHARISMA AVILES (00000) [facility] [place] [place] [address] [place] [address] CBC panel Auto (Bld)on 07-29 Erythrocyte distribution width (RBC) [Ratio] 12.5 % 11.5 - 14.5 % [facility] Hematocrit (Bld) [Volume fraction] 40.5 % Low 41.0 - 52.0 % [facility] Hemoglobin (Bld) [Mass/Vol] 13.8 g/dL 13.5 - 17.5 g/dL [facility] Interpretation and review of laboratory results Abnormal [facility] MCH (RBC) [Entitic mass] 30.1 pg 26.0 - 34.0 pg [facility] MCHC (RBC) [Mass/Vol] 34.1 g/dL 32.0 - 36.0 g/dL [facility] MCV (RBC) [Entitic vol] 88 fL 80 - 100 fL [facility] Nucleated RBC/100 WBC (Bld) [Ratio] 0 % [facility] Platelets (Bld) [#/Vol] 168 10*3/uL [facility] RBC (Bld) [#/Vol] 4.59 10*6/uL [facility] WBC (Bld) [#/Vol] 9.4 10*3/uL [facility] Erythrocyte distribution width (RBC) [Ratio] 12.5 % Normal 11.5-14.5 [facility] Comment on above: Performed By: #### 5 8410-2 #### CHARISMA AVILES ([id number]) [facility] ([facility] [place] [address] [place] [address] Hematocrit (Bld) [Volume fraction] 40.5 % Low 41.0-52.0 [facility] Comment on above: Performed By: #### 5 8410-2 #### CHARISMA AVILES ([id number]) [facility] ([facility] [place] [address] [place] [address] Hemoglobin (Bld) [Mass/Vol] 13.8 g/dL Normal 13.5-17.5 [facility] Comment on above: Performed By: #### 5 8410-2 #### CHARISMA AVILES ([id number]) [facility] [place] [place] [address] [place] [address] MCH (RBC) [Entitic mass] 30.1 pg Normal 26.0-34.0 [facility] Comment on above: Performed By: #### 5 8410-2 #### CHARISMA AVILES ([id number]) [facility] [place] [place] [address] [place] [address] MCHC (RBC) [Mass/Vol] 34.1 g/dL Normal 32.0-36.0 [facility] Comment on above: Performed By: #### 5 8410-2 #### CHARISMA AVILES ([id number]) [facility] [place] [place] [address] [place] [address] MCV (RBC) [Entitic vol] 88 fL Normal 80-100 [facility] Comment on above: Performed By: #### 5 8410-2 #### CHARISMA AVILES (40660) [facility] [place] [place] [address] [place] [address] Nucleated RBC/100 WBC (Bld) [Ratio] 0.0 /100 WBCs Normal 0.0-0.0 [facility] Comment on above: Performed By: #### 5 8410-2 #### CHARISMA AVILES ([id number]) [facility] ([facility] [place] [address] [place] [address] Platelets (Bld) [#/Vol] 168 x10*3/uL Normal 150-450 [facility] Comment on above: Performed By: #### 5 8410-2 #### CHARISMA AVILES ([id number]) [facility] ([facility] [place] [address] [place] [address] RBC (Bld) [#/Vol] 4.59 x10*6/uL Normal 4.50-5.90 [facility] Comment on above: Performed By: #### 5 8410-2 #### CHARISMA AVILES ([id number]) [facility] ([facility] [place] [address] [place] [address] WBC (Bld) [#/Vol] 9.4 x10*3/uL Normal 4.4-11.3 [facility] Comment on above: Performed By: #### 5 8410-2 #### CHARISMA AVILES ([id number]) [facility] [place] [place] [id number] [place] [address] Coagulation tissue factor in ducedon 07-29-2024 PT Coag (PPP) [Time] 9.8 s Normal 9.8-12.4 [facility] Comment on above: Performed By: #### 5 902-2 #### CHARISMA AVILES ([id number]) [facility] ([facility] [place] [address] [place] [address] FL FLUORO IMAGES NO CHARGEon 07-29-2024 FL FLUORO IMAGES NO CHARGE These images are not reportable by radiology and will not be interpreted by Radiologists. Normal [facility] Glucose Test strip manual (B ld) [Mass/Vol]on 07-29-2024 Glucose [Mass/Vol] 246 mg/dL High 74 - 99 mg/dL [facility] Interpretation and review of laboratory results Abnormal [facility] Glucose [Mass/Vol] 246 mg/dL High 74-99 [facility] Comment on above: Performed By: #### 5 8077-9 #### CHARISMA AVILES ([id number]) [facility] [place] [place] [address] [place] [address] Glucose [Mass/Vol] 187 mg/dL High 74 - 99 mg/dL [facility] Interpretation and review of laboratory results Abnormal [facility] Glucose [Mass/Vol] 187 mg/dL High 74-99 [facility] Comment on above: Performed By: #### 2 341-6 #### CHARISMA AVILES ([id number]) [facility] [place] [place] [address] [place] [address] IR NEPHROURETERAL PLACEME NTon 07-29-2024 IR NEPHROURETERAL PLACEMENT Interpreted By: Radhames Romero, STUDY: IR NEPHROURETERAL PLACEMENT; 07/29/2024 12:14 pm INDICATION: Signs/Symptoms:KIDNEY STONE. COMPARISON: None. ACCESSION NUMBER(S): [id number] ORDERING CLINICIAN: SOFIE DURBIN TECHNIQUE: SCCM ADMINISTRATOR: Radhames Romero MD CONSENT: The patient was [...] and versed. Total intra-service sedation time from 2557-6301 hours (68 minutes). The physician was assisted [...] the renal collecting system. I advanced a [facility] microcatheter over a 0.018 inch micro Glidewire [...] removed over the wire and a 5 Palauan coaxial dilator was placed over the wire. The inner dilator and wire were removed. A small amount of contrast was injected confirming location of the catheter. This demonstrates stones within the system, but no hydronephrosis. Through the catheter a 0.035 wire was advanced to the urinary bladder. The coaxial dilator was removed and a 5 Palauan end hole catheter (TagSeats) was advanced over the wire with the [...] Radhames Romero 07/30/2024 12:28 PM Dictation workstation: [id number] [facility] PT Coag (PPP) [Time]on 07-29 INR Coag (PPP) [Relative time] 0.9 {INR} 0.9 - 1.1 [facility] Interpretation and review of laboratory results [facility] INR Coag (PPP) [Relative time] 0.9 Normal 0.9-1.1 [facility] Comment on above: Performed By: #### 5 902-2 #### CHARISMA AVILES ([id number]) [facility] [place] [place] [address] [place] [address] Protime-INRon 07-29-2024 PT Coag (PPP) [Time] 9.8 s [facility] US GUIDED ABSCESS FLUID MARCELLO ECTION DRAINAGEon 07-29-2024 US GUIDED ABSCESS FLUID COLLECTION DRAINAGE Interpreted By: Radhames Romero, STUDY: IR NEPHROURETERAL PLACEMENT; 07/29/2024 12:14 pm INDICATION: Signs/Symptoms:KIDNEY STONE. COMPARISON: None. ACCESSION NUMBER(S): [id number] ORDERING CLINICIAN: SOFIE DURBIN TECHNIQUE: SCCM ADMINISTRATOR: Radhames Romero MD CONSENT: The patient was [...] and versed. Total intra-service sedation time from 8477-4251 hours (68 minutes). The physician was assisted [...] the renal collecting system. I advanced a [facility] microcatheter over a 0.018 inch micro Glidewire [...] removed over the wire and a 5 Palauan coaxial dilator was placed over the wire. The inner dilator and wire were removed. A small amount of contrast was injected confirming location of the catheter. This demonstrates stones within the system, but no hydronephrosis. Through the catheter a 0.035 wire was advanced to the urinary bladder. The coaxial dilator was removed and a 5 Palauan end hole catheter (TagSeats) was advanced over the wire with the [...] Radhames Romero 07/30/2024 12:28 PM Dictation workstation: [id number] [facility] Comment on above: Order Comment: OVER is reported when the result is greater than the clinically reportable range. XR tomography Unspecified giacomo dy regionon 07-29-2024 These images are not reportable by radiology and will not be interpreted by Radiologists. IMAGING ECG 12 leadOrdered By: Geremias Orozco on 07-28-2024 Atrial Rate 72 BPM [facility] Work Phone: P [place] 42 degrees [facility] Work Phone: P Offset 186 ms [facility] Work Phone: P Onset 139 ms [facility] Work Phone: [place] Interval 136 ms [facility] Work Phone: Q Onset 207 ms [facility] Work Phone: QRS Count 11 beats [facility] Work Phone: QRS Duration 108 ms [facility] Work Phone: QT Interval 410 ms [facility] Work Phone: QTC Calculation(Bazett) 448 ms [facility] Work Phone: QTC Fredericia 435 ms [facility] Work Phone: R [place] -31 degrees [facility] Work Phone: T [place] 64 degrees [facility] Work Phone: T Offset 412 ms [facility] Work Phone: Ventricular Rate 72 BPM [facility] Work Phone: [facility] Work Phone: ECG 12 leadon 07-28-2024 Normal [...] Geremias Orozco ([id number]) on 07/28/2024 12:32:46 PM [facility] Work Phone: Bacteria identifiedon 2024 Bacteria identified Cx Nom (U) Test: Urine Culture Specimen Source: Clean Catch/Voided Specimen Type: Urine Specimen Date: 07/19/202450 Result Date: 07/20/20242109 Result Status: Final result Abnormal: No Resulting Lab: [facility] [address] [place] [address] CULTURE Clinically insignificant growth based on current clinical standards. Normal [facility] Comment on above: Performed By: #### 6 30-4 #### MELCHOR Page ([id number]) [facility] ([facility]) [address] [place] [address] CBC panel Auto (Bld)on 07-19 Erythrocyte distribution width (RBC) [Ratio] 12.5 % 11.5 - 14.5 % [facility] Hematocrit (Bld) [Volume fraction] 46.1 % 41.0 - 52.0 % [facility] Hemoglobin (Bld) [Mass/Vol] 15.6 g/dL 13.5 - 17.5 g/dL [facility] Interpretation and review of laboratory results Normal [facility] MCH (RBC) [Entitic mass] 29.5 pg 26.0 - 34.0 pg [facility] MCHC (RBC) [Mass/Vol] 33.8 g/dL 32.0 - 36.0 g/dL [facility] MCV (RBC) [Entitic vol] 87 fL 80 - 100 fL [facility] Nucleated RBC/100 WBC (Bld) [Ratio] 0 % [facility] Platelets (Bld) [#/Vol] 241 10*3/uL [facility] RBC (Bld) [#/Vol] 5.29 10*6/uL [facility] WBC (Bld) [#/Vol] 5.5 10*3/uL [facility] Erythrocyte distribution width (RBC) [Ratio] 12.5 % Normal 11.5-14.5 [facility] Comment on above: Performed By: #### 5 8410-2 #### CHARISMA AVILES ([id number]) [facility] [place] [place] [place] [address] [place] [address] Hematocrit (Bld) [Volume fraction] 46.1 % Normal 41.0-52.0 [facility] Comment on above: Performed By: #### 5 8410-2 #### CHARISMA AVILES ([id number]) [facility] ([facility] [place] [place] [address] [place] [address] Hemoglobin (Bld) [Mass/Vol] 15.6 g/dL Normal 13.5-17.5 [facility] Comment on above: Performed By: #### 5 8410-2 #### CHARISMA AVILES ([id number]) [facility] ([facility] [place] [place] [address] [place] [address] MCH (RBC) [Entitic mass] 29.5 pg Normal 26.0-34.0 [facility] Comment on above: Performed By: #### 5 8410-2 #### CHARISMA AVILES ([id number]) [facility] ([facility] [place] [place] [address] [place] [address] MCHC (RBC) [Mass/Vol] 33.8 g/dL Normal 32.0-36.0 [facility] Comment on above: Performed By: #### 5 8410-2 #### CHARISMA AVILES ([id number]) [facility] ([facility] [place] [address] [place] [address] MCV (RBC) [Entitic vol] 87 fL Normal 80-100 [facility] Comment on above: Performed By: #### 5 8410-2 #### CHARISMA AVILES ([id number]) [facility] ([facility] [address] [place] [address] Nucleated RBC/100 WBC (Bld) [Ratio] 0.0 /100 WBCs Normal 0.0-0.0 [facility] Comment on above: Performed By: #### 5 8410-2 #### CHARISMA AVILES ([id number]) [facility] ([facility] [place] [address] [place] [address] Platelets (Bld) [#/Vol] 241 x10*3/uL Normal 150-450 [facility] Comment on above: Performed By: #### 5 8410-2 #### CHARISMA AVILES ([id number]) [facility] ([facility] [place] [place] [address] [place] [address] RBC (Bld) [#/Vol] 5.29 x10*6/uL Normal 4.50-5.90 [facility] Comment on above: Performed By: #### 5 8410-2 #### CHARISMA AVILES ([id number]) [facility] [place] [place] [address] [place] [address] WBC (Bld) [#/Vol] 5.5 x10*3/uL Normal 4.4-11.3 [facility] Comment on above: Performed By: #### 5 8410-2 #### CHARISMA AVILES ([id number]) [facility] [place] [address] [place] [address] Comprehensive metabolic 2000 panelon 07-19-2024 Albumin BCP dye [Mass/Vol] 4.7 g/dL 3.4 - 5.0 g/dL [facility] ALP [Catalytic activity/Vol] 59 U/L 33 - 120 U/L [facility] ALT With P-5'-P [Catalytic activity/Vol] 76 U/L High 10 - 52 U/L [facility] Comment on above: Patients treated wit h Sulfasalazine may generate falsely decreased results for ALT. Anion gap [Moles/Vol] 17 mmol/L 10 - 20 mmol/L [facility] AST With P-5'-P [Catalytic activity/Vol] 64 U/L High 9 - 39 U/L [facility] Bilirubin [Mass/Vol] 1.1 mg/dL 0.0 - 1.2 mg/dL [facility] Calcium [Mass/Vol] 10.1 mg/dL 8.6 - 10. 3 mg/dL [facility] Chloride [Moles/Vol] 99 mmol/L 98 - 107 mmol/L [facility] CO2 [Moles/Vol] 25 mmol/L 21 - 32 mmol/L [facility] Creatinine [Mass/Vol] 0.88 mg/dL 0.50 - 1.30 mg/dL [facility] eGFR - PINF [facility] Comment on above: Calculations of jeanette mated GFR are performed using the 2020 CKD-EPI Study Refit equation without the race variable for the IDMS-Traceable creatinine methods. https://jasn.asnjournals.org/content//ASN.5603532 988 Glucose [Mass/Vol] 209 mg/dL High 74 - 99 mg/dL [facility] Interpretation and review of laboratory results Abnormal [facility] Potassium [Moles/Vol] 4.4 mmol/L 3.5 - 5.3 mmol/L [facility] Protein [Mass/Vol] 7.6 g/dL 6.4 - 8.2 g/dL [facility] Sodium [Moles/Vol] 137 mmol/L 136 - 145 mmol/L [facility] Urea nitrogen [Mass/Vol] 19 mg/dL 6 - 23 mg/dL [facility] Albumin BCP dye [Mass/Vol] 4.7 g/dL Normal 3.4-5.0 [facility] Comment on above: Performed By: #### 2 4323-8 #### CHARISMA AVILES ([id number]) [facility] [place] [place] [place] [address] [place] [address] ALP [Catalytic activity/Vol] 59 U/L Normal 33-120 [facility] Comment on above: Performed By: #### 2 4323-8 #### CHARISMA AVILES ([id number]) [facility] [place] [place] [address] [place] [address] ALT With P-5'-P [Catalytic activity/Vol] 76 U/L High 10-52 [facility] Comment on above: Result Comment: Latricia ents treated with Sulfasalazine may generate falsely decreased results for ALT. Performed By: #### 2 4323-8 #### CHARISMA AVILES ([id number]) [facility] [place] [place] [place] [address] [place] [address] Anion gap [Moles/Vol] 17 mmol/L Normal 10-20 [facility] Comment on above: Performed By: #### 2 4323-8 #### CHARISMA AVILES ([id number]) [facility] [place] [place] [place] [address] [place] [address] AST With P-5'-P [Catalytic activity/Vol] 64 U/L High 9-39 [facility] Comment on above: Performed By: #### 2 4323-8 #### CHARISMA AVILES ([id number]) [facility] [place] [place] [address] [place] [address] Bilirubin [Mass/Vol] 1.1 mg/dL Normal 0.0-1.2 [facility] Comment on above: Performed By: #### 2 432-8 #### CHARISMA AVILES ([id number]) [facility] [place] [place] [address] [place] [address] Calcium [Mass/Vol] 10.1 mg/dL Normal 8.6-10.3 [facility] Comment on above: Performed By: #### 2 432-8 #### CHARISMA AVILES ([id number]) [facility] [place] [place] [address] [place] [address] Chloride [Moles/Vol] 99 mmol/L Normal 98-107 [facility] Comment on above: Performed By: #### 2 4323-8 #### CHARISMA AVILES ([id number]) [facility] [place] [place] [address] [place] [address] CO2 [Moles/Vol] 25 mmol/L Normal 21-32 [facility] Comment on above: Performed By: #### 2 4323-8 #### CHARISMA AVILES ([id number]) [facility] [place] [place] [address] [place] [address] Creatinine [Mass/Vol] 0.88 mg/dL Normal 0.50-1.30 [facility] Comment on above: Performed By: #### 2 4323-8 #### CHARISMA AVILES ([id number]) [facility] [place] [place] [address] [place] [address] GFR/1.73 sq M.predicted MDRD (S/P/Bld) [Vol rate/Area] mL/min/{1.73_m2} Normal >60 [facility] Comment on above: Result Comment: Calc ulations of estimated GFR are performed using the 2020 CKD-EPI Study Refit equation without the race variable for the IDMS-Traceable creatinine methods. https://jasn.asnjournals.org/content/early/ASN.4012522 988 Performed By: #### 2 4323-8 #### CHARISMA AVILES ([id number]) [facility] [place] [place] [address] [place] [address] Glucose [Mass/Vol] 209 mg/dL High 74-99 [facility] Comment on above: Performed By: #### 2 4323-8 #### CHARISMA AVILES ([id number]) [facility] [place] [place] [address] [place] [address] Potassium [Moles/Vol] 4.4 mmol/L Normal 3.5-5.3 [facility] Comment on above: Performed By: #### 2 4323-8 #### CHARISMA AVILES ([id number]) [facility] [place] [place] [address] [place] [address] Protein [Mass/Vol] 7.6 g/dL Normal 6.4-8.2 [facility] Comment on above: Performed By: #### 2 4323-8 #### CHARISMA AVILES ([id number]) [facility] [place] [place] [address] [place] [address] Sodium [Moles/Vol] 137 mmol/L Normal 136-145 [facility] Comment on above: Performed By: #### 2 4323-8 #### CHRAISMA AVILES ([id number]) [facility] [place] [place] [address] [place] [address] Urea nitrogen [Mass/Vol] 19 mg/dL Normal 6-23 [facility] Comment on above: Performed By: #### 2 4323-8 #### CHARISMA AVILES ([id number]) [facility] [place] [place] [address] [place] [address] ECG 12-LEADon 07-19-2024 ECG 12-LEAD Ventricular Rate 72 Atrial Rate 72 P-R Interval 136 QRS Duration 108 Q-T Interval 410 QTC Calculation(Bazett) 448 P [place] 42 R [place] -31 T [place] 64 QRS Count 11 Q Onset 207 P Onset 139 P Offset 186 T Offset 412 QTC Fredericia 435 Diagnosis Normal sinus rhythm Left axis deviation Septal infarct , age undetermined Abnormal ECG When compared with ECG of 15-DEC-2020 13:21, Septal infarct is now Present Confirmed by Geremias Orozco ([id number]) on 07/28/2024 12:32:46 PM Normal [facility] HbA1c (Bld) [Mass fraction]o n 07-19-2024 Average glucose Estimated from glycated hemoglobin (Bld) [Mass/Vol] 197 mg/dL Normal Not Established [facility] Comment on above: Order Comment: Diagn osis of Diabetes-Adults Non-Diabetic: < or = 5.6% Increased risk for developing diabetes: 5.7-6.4% Diagnostic of diabetes: > or = 6.5% Performed By: #### 4 548-4 #### MELCHOR Page ([id number]) [facility] ([facility]) [id number] [place] [address] Hemoglobin A1c/Hemoglobin.to napoleon 07-19-2024 HbA1c (Bld) [Mass fraction] 8.5 % High See comment [facility] Comment on above: Order Comment: Diagn osis of Diabetes-Adults Non-Diabetic: < or = 5.6% Increased risk for developing diabetes: 5.7-6.4% Diagnostic of diabetes: > or = 6.5% Performed By: #### 4 548-4 #### MELCHOR Page (42047) [facility] ([facility]) [id number] [place] [address] Urinalysis complete W Reflex Culture panel (U)on 07-19-2024 Appearance (U) Clear Normal Clear [facility] Comment on above: Order Comment: OVER is reported when the result is greater than the clinically reportable range. Performed By: #### 5 8077-9 #### CHARISMA AVILES ([id number]) [facility] [place] [place] [address] [place] [address] Bilirubin (U) [Mass/Vol] Negative Normal NEGATIVE [facility] Comment on above: Order Comment: OVER is reported when the result is greater than the clinically reportable range. Performed By: #### 5 8077-9 #### CHARISMA AVILES ([id number]) [facility] ([facility] [place] [place] [address] [place] [address] Color (U) Light-Yellow Normal Light-Yellow, Yellow, Dark-Yellow [facility] Comment on above: Order Comment: OVER is reported when the result is greater than the clinically reportable range. Performed By: #### 5 8077-9 #### CHARISMA AVILES ([id number]) [facility] ([facility] [place] [place] [id number] [place] [address] Glucose Auto test strip (U) [Mass/Vol] OVER (4+) Abnormal Normal [facility] Comment on above: Order Comment: OVER is reported when the result is greater than the clinically reportable range. Performed By: #### 5 8077-9 #### CHARISMA AVILES ([id number]) [facility] [place] [place] [address] [place] [address] Ketones (U) [Mass/Vol] Negative Normal NEGATIVE [facility] Comment on above: Order Comment: OVER is reported when the result is greater than the clinically reportable range. Performed By: #### 5 8077-9 #### CHARISMA AVILES ([id number]) [facility] [place] [place] [address] [place] [address] Leukocyte esterase Auto test strip Ql (U) 75 Azra/uL Abnormal NEGATIVE [facility] Comment on above: Order Comment: OVER is reported when the result is greater than the clinically reportable range. Performed By: #### 5 8077-9 #### CHARISMA AVILES ([id number]) [facility] ([facility] [place] [address] [place] [address] Nitrite Auto test strip Ql (U) Negative Normal NEGATIVE [facility] Comment on above: Order Comment: OVER is reported when the result is greater than the clinically reportable range. Performed By: #### 5 8077-9 #### CHARISMA AVILES ([id number]) [facility] ([facility] [place] [address] [place] [address] pH (U) 6.0 [pH] Normal 5.0, 5.5, 6.0, 6.5, 7.0, 7.5, 8.0 [facility] Comment on above: Order Comment: OVER is reported when the result is greater than the clinically reportable range. Performed By: #### 5 8077-9 #### CHARISMA AVILES ([id number]) [facility] ([facility] [place] [address] [place] [address] Protein (U) [Mass/Vol] 30 (1+) Abnormal NEGATIVE, 10 (TRACE), 20 (TRACE) [facility] Comment on above: Order Comment: OVER is reported when the result is greater than the clinically reportable range. Performed By: #### 5 8077-9 #### CHARISMA AVILES ([id number]) [facility] ([facility] [place] [address] [place] [address] RBC (U) [#/Vol] 1.0 (3+) Abnormal NEGATIVE [facility] Comment on above: Order Comment: OVER is reported when the result is greater than the clinically reportable range. Performed By: #### 5 8077-9 #### CHARISMA AVILES ([id number]) [facility] [place] [place] [place] [address] [place] [address] Specific gravity (U) [Rel density] 1.023 Normal 1.005-1.035 [facility] Comment on above: Order Comment: OVER is reported when the result is greater than the clinically reportable range. Performed By: #### 5 8077-9 #### CHARISMA AVILES ([id number]) [facility] ([facility] [place] [id number] [place] [address] Urobilinogen (U) [Mass/Vol] Normal Normal Normal [facility] Comment on above: Order Comment: OVER is reported when the result is greater than the clinically reportable range. Performed By: #### 5 8077-9 #### CHARISMA AVILES ([id number]) [facility] ([facility] [place] [place] [address] [place] [address] Urinalysis microscopic panel Auto Ql (U)on 07-19-2024 Epithelial cells.squamous Auto (Urine sed) [#/Area] 1-9 (SPARSE) Normal Reference range not established. [facility] Comment on above: Performed By: #### 5 3315-8 #### CHARISMA AVILES ([id number]) [facility] ([facility] [place] [address] [place] [address] Mucus Auto (Urine sed) [#/Area] FEW Normal Reference range not established. [facility] Comment on above: Performed By: #### 5 3315-8 #### CHARISMA AVILES ([id number]) [facility] ([facility] [place] [id number] [place] [address] RBC Auto (Urine sed) [#/Area] >20 Abnormal NONE, 1-2, 3-5 [facility] Comment on above: Performed By: #### 5 3315-8 #### CHARISMA AVILES ([id number]) [facility] ([facility] [place] [place] [address] [place] [address] WBC Auto (Urine sed) [#/Area] 21-50 Abnormal 1-5, NONE [facility] Comment on above: Performed By: #### 5 3315-8 #### CHARISMA AVILES ([id number]) [facility] [place] [place] [place] [address] [place] [address] Ambulatory Visit Summaryon 0 05-24-2024 Ambulatory Visit Summary Ambulatory Visit Summary JERRY WILSON :1970 Visit Date:05/24/2024 Ambulatory Visit Instructions Your Diagnosis [...] Following Appointments Follow Up with POLY ISIDRO, SARIAH Fitzgerald When: Where: [address] [place] [address] [place], [place] [id number]- Medications What How Much When Instructions Unchanged [...] including vitamins, herbs, eye drops, creams, and aohf-efr-clunhmh medicines. ??? Any problems you or family [...] of (more content not included)... Normal [facility] Urology Office/Clinic Noteon 05-24-2024 Urology Office/Clinic [...] stones we (more content not included)... Normal [facility] Comment on above: Result Comment: Elec tronically Signed By: Arleen Barahona P\.br\Date and Time Signed: 05/24/24 10:34 EST\.br\Electronically Co-Signed By: Alex PANG MD P\.br\Date and Time Co-Signed: 07/01/24 15:12 EST CHEMISTRYOrdered By: Patience Villarreal on 03-30-2024 HbA1c (Bld) [Mass fraction] 8.1 % High <=5.9% [facility] ChemAutoSS CHEMISTRYOrdered By: SYSTEM SYSTEM on 03-30-2024 [...] used for this result was chemiluminescence using [employer]'s Access Hybritech PSA reagent. [id number] 03-30-2024 HbA1c (Bld) [Mass fraction] 8.1 % High <=5.9 [facility] Comment on above: Performed By: #### 7 [id number] #### [facility] [address] [id number] PSA Totalon 03-30-2024 Prostate specific Ag [Mass/Vol] 1.2 ng/mL Normal 0.1-3.5 [facility] Comment on above: Result Comment: The concentration of PSA determined by different manufacturers can vary due to differences in assay methods and reagent specificity. Values obtained from different assay methods cannot be used interchangeably. The methodology used for this result was chemiluminescence using [employer]'s Access Hybritech PSA reagent. Performed By: #### 1 [id number] #### [facility] [address] [place] [address] CULTURE URINEon 09-15-2022 CULTURE URINE Isolate 1 [...] Trimethoprim/Sulfamet hoxazole <=20 S F Normal [facility] Comment on above: Performed By: #### L IPA, CMP, CK, HSTROPN #### [facility] [address] [place], [place] [address] Dr. Frank Nugent CBC AUTO DIFFon 09-13-2022 BASO # 0.0 103/ul Normal 0.0-0.1 [facility] Comment on above: Performed By: #### C BC #### [facility] [address] [place], [place] [address] Dr. Frank Nugent Basophils/100 WBC (Bld) 0.2 % Normal 0.2-2.0 [facility] Comment on above: Performed By: #### C BC #### [facility] [address] [place], [place] [address] Dr. Frank Nugent EO # 0.0 103/ul Normal 0.0-0.7 [facility] Comment on above: Performed By: #### C BC #### [facility] [address] [place] [address] Dr. Frank Nugent Eosinophils/100 WBC (Bld) 0.1 % Critically low 0.9-7.0 [facility] Comment on above: Performed By: #### C BC #### [facility] [address] [place] [address] Dr. Frank Nugent Erythrocyte distribution width (RBC) [Ratio] 12.7 % Normal 11.0-15.0 [facility] Comment on above: Performed By: #### C BC #### [facility] [address] [place] [address] Dr. Frank Nugent Hematocrit (Bld) [Volume fraction] 41.3 % Critically low 42.0-54.0 [facility] Comment on above: Performed By: #### C BC #### [facility] [address] [place] [address] Dr. Frank Nugent Hemoglobin (Bld) [Mass/Vol] 14.0 g/dL Normal 14.0-18.0 [facility] Comment on above: Performed By: #### C BC #### [facility] [address] [place] [address] Dr. Frank Nugent IG # 0.04 10e3/ul Critically high 0.00-0.03 [facility] Comment on above: Performed By: #### C BC #### [facility] [address] [place] [address] Dr. Frank Nugent IG % 0.3 % Normal 0.0-0.5 [facility] Comment on above: Performed By: #### C BC #### [facility] [address] [place] [address] Dr. Frank Nugent LYMPH # 1.0 103/ul Critically low 1.2-3.8 [facility] Comment on above: Performed By: #### C BC #### [facility] [address] [place] [address] Dr. Frank Nugent Lymphocytes/100 WBC (Bld) 6.9 % Critically low 20.5-60.0 [facility] Comment on above: Performed By: #### C BC #### [facility] [address] [place] [address] Dr. Frank Nugent MANUAL DIFF REQ NO Normal [facility] Comment on above: Performed By: #### C BC #### [facility] [address] [place] [address] Dr. Frank Nugent MCH (RBC) [Entitic mass] 29.5 pg Normal 25.9-34.0 [facility] Comment on above: Performed By: #### C BC #### [facility] [address] [place] [address] Dr. Frank Nugent MCHC (RBC) [Mass/Vol] 33.9 g/dL Normal 29.9-35.2 [facility] Comment on above: Performed By: #### C BC #### [facility] [address] [place] [address] Dr. Frank Nugent MCV (RBC) [Entitic vol] 87.1 fL Normal 80.0-94.0 [facility] Comment on above: Performed By: #### C BC #### [facility] [address] [place] [address] Dr. Frank Nugent MONO # 1.3 103/ul Critically high 0.3-0.8 [facility] Comment on above: Performed By: #### C BC #### [facility] [address] [place] [address] Dr. Frank Nugent Monocytes/100 WBC (Bld) 9.0 % Normal 1.7-12.0 [facility] Comment on above: Performed By: #### C BC #### [facility] [address] [place] [address] Dr. Frank Nugent NEUT # 12.2 103/ul Critically high 1.4-6.5 [facility] Comment on above: Performed By: #### C BC #### [facility] [address] [place] [address] Dr. Frank Nugent Neutrophils/100 WBC (Bld) 83.5 % Critically high 43.0-75.0 [facility] Comment on above: Performed By: #### C BC #### [facility] [address] [place] [address] Dr. Frank Nugent Platelet mean volume (Bld) [Entitic vol] 11.5 fL Normal 9.5-13.5 [facility] Comment on above: Performed By: #### C BC #### [facility] [address] [place] [address] Dr. Frank Nugent PLT 216 103/ul Normal 150-450 [facility] Comment on above: Performed By: #### C BC #### [facility] [address] [place] [address] Dr. Frank Nugent RBC 4.74 106/ul Normal 4.70-6.10 [facility] Comment on above: Performed By: #### C BC #### [facility] [address] [place] [address] Dr. Frank Nugent WBC 14.6 103/ul Critically high 4.0-11.0 [facility] Comment on above: Performed By: #### C BC #### [facility] [address] [place] [address] Dr. Frank Nugent CPKon 09-13-2022 CK [Catalytic activity/Vol] 260 U/L Normal 39-308 [facility] Comment on above: Performed By: #### L IPA, CMP, CK, HSTROPN #### [facility] [address] [place] [address] Dr. Frank Nugent CULTURE BLOODon 09-13-2022 Microscopic examination of blood, culture Culture Observations: NO GROWTH AT 5 DAYS. Normal [facility] Comment on above: Performed By: #### L IPA, CMP, CK, HSTROPN #### [facility] [address] [place] [address] Dr. Frank Nugent Microscopic examination of blood, culture Culture Observations: NO GROWTH AT 5 DAYS. Normal [facility] Comment on above: Performed By: #### L IPA, CMP, CK, HSTROPN #### [facility] [address] [place] [address] Dr. Frank Nugent Covid-19 PCR (CVDTBH)on SARS-CoV-2 (COVID-19) RNA JABIER+probe Ql (Unsp spec) Not detected Normal NOT DETECTED [facility] Comment on above: Result Comment: This test is not yet approved or cleared by the [place] FDA. When there are no FDA-approved or cleared tests available, and other criteria are met, FDA can make tests available under an emergency access mechanism called an Emergency Use Authorization (EUA). The EUA for this test is supported by the [place] of Health and Human Service's (HHS's) declaration [...] #### L IPA, CMP, CK, HSTROPN #### [facility] [address] [place] [address] Dr. Frank Nugent ER URINE PROFILEon 3 Bilirubin Ql (U) Negative Normal NEGATIVE [facility] Comment on above: Performed By: #### L IPA, CMP, CK, HSTROPN #### [facility] [address] [place] [address] Dr. Frank Nugent Clarity (U) CLEAR Normal CLEAR [facility] Comment on above: Performed By: #### L IPA, CMP, CK, HSTROPN #### [facility] [address] [place] [address] Dr. Frank Nugent Color (U) YELLOW Normal YELLOW [facility] Comment on above: Performed By: #### L IPA, CMP, CK, HSTROPN #### [facility] [address] [place] [address] Dr. Frank Nugent ERUAHD A micrscopic examination will be performed if indicated. Normal [facility] Comment on above: Performed By: #### L IPA, CMP, CK, HSTROPN #### [facility] [address] [address] [address] Frank Nugent Glucose Ql (U) 250 mg/dl Abnormal NEGATIVE [facility] Comment on above: Performed By: #### L IPA, CMP, CK, HSTROPN #### [facility] [address] [address] [address] Frank Nugent Hemoglobin Ql (U) SMALL Abnormal NEGATIVE [facility] Comment on above: Performed By: #### L IPA, CMP, CK, HSTROPN #### [facility] [address] [address] [address] Frank Nugent Ketones Ql (U) Negative Normal NEGATIVE [facility] Comment on above: Performed By: #### L IPA, CMP, CK, HSTROPN #### [facility] [address] [address] [address] Frank Nugent LEUKOCYTES TRACE Abnormal NEGATIVE [facility] Comment on above: Performed By: #### L IPA, CMP, CK, HSTROPN #### [facility] [address] [address] [address] Frank Nugent Nitrite Ql (U) Negative Normal NEGATIVE [facility] Comment on above: Performed By: #### L IPA, CMP, CK, HSTROPN #### [facility] [address] [address] [address] Frank Nugent pH (U) 5.5 [pH] Normal 5-9 [facility] Comment on above: Performed By: #### L IPA, CMP, CK, HSTROPN #### [facility] [address] [address] [address] Frnak Nugent SPEC GRAVITY 1.020 Normal 1.005-<=1.025 [facility] Comment on above: Performed By: #### L IPA, CMP, CK, HSTROPN #### [facility] [address] [address] [address] Frank Nugent UA PROTEIN TRACE Normal NEGATIVE/ TRACE [facility] Comment on above: Performed By: #### L IPA, CMP, CK, HSTROPN #### [facility] [address] [place] [address] Dr. Frank Nugent UR MICRO IND INDICATED Normal [facility] Comment on above: Performed By: #### L IPA, CMP, CK, HSTROPN #### [facility] [address] [place] [address] Dr. Frank Nugent Urobilinogen Qn (U) 0.2 {Moni'U}/dL Normal 0.2 - 1. 0 [facility] Comment on above: Performed By: #### L IPA, CMP, CK, HSTROPN #### [facility] [address] [place] [address] Dr. Frank Nugent LACTATE/LACTIC ACIDon 2022 Lactate [Moles/Vol] 2.1 mmol/L Critically high 0.4-2.0 [facility] Comment on above: Performed By: #### L ACT #### [facility] [address] [place] [address] Dr. Frank Nugent LIPASEon 09-13-2022 Lipase [Catalytic activity/Vol] 116.0 U/L Normal 73.0-393.0 [facility] Comment on above: Performed By: #### L IPA, CMP, CK, HSTROPN #### [facility] [address] [place] [address] Dr. Frank Nugent PROF 14(COMP METB)on 023 Albumin [Mass/Vol] 4.0 g/dL Normal 3.4-5.0 [facility] Comment on above: Performed By: #### L IPA, CMP, CK, HSTROPN #### [facility] [address] [place] [address] Dr. Frank Nugent Albumin/Globulin [Mass ratio] 1.0 {ratio} Normal [facility] Comment on above: Performed By: #### L IPA, CMP, CK, HSTROPN #### [facility] [address] [place] [address] Dr. Frank Nugent ALP [Catalytic activity/Vol] 70 U/L Normal 46-116 [facility] Comment on above: Performed By: #### L IPA, CMP, CK, HSTROPN #### [facility] [address] [place] [address] Dr. Frank Nugent ALT [Catalytic activity/Vol] 55 U/L Normal 16-63 [facility] Comment on above: Performed By: #### L IPA, CMP, CK, HSTROPN #### [facility] [address] [address] [address] Frank Nugent Anion gap [Moles/Vol] 14.0 mmol/L Normal [facility] Comment on above: Performed By: #### L IPA, CMP, CK, HSTROPN #### [facility] [address] [place] [address] Dr. Frank Nugent AST [Catalytic activity/Vol] 28 U/L Normal 15-37 [facility] Comment on above: Performed By: #### L IPA, CMP, CK, HSTROPN #### [facility] [address] [place] [address] Dr. Frank Nugent Bilirubin [Mass/Vol] 2.1 mg/dL Critically high 0.2-1.0 [facility] Comment on above: Performed By: #### L IPA, CMP, CK, HSTROPN #### [facility] [address] [place] [address] Dr. Frank Nugent Calcium [Mass/Vol] 9.3 mg/dL Normal 8.5-10.1 [facility] Comment on above: Performed By: #### L IPA, CMP, CK, HSTROPN #### [facility] [address] [place] [address] Dr. Frank Nugent Chloride [Moles/Vol] 100 mmol/L Normal 98-107 [facility] Comment on above: Performed By: #### L IPA, CMP, CK, HSTROPN #### [facility] [address] [place] [address] Dr. Frank Nugent CO2 [Moles/Vol] 24.7 mmol/L Normal 21.0-32.0 [facility] Comment on above: Performed By: #### L IPA, CMP, CK, HSTROPN #### [facility] [address] [address] [address] Frank Nugent Creatinine [Mass/Vol] 1.31 mg/dL Critically high 0.70-1.30 [facility] Comment on above: Performed By: #### L IPA, CMP, CK, HSTROPN #### [facility] [address] [place] [address] Dr. Frank Nugent EGFR-AF ALBANIAN >60 Normal >=60 [facility] Comment on above: Performed By: #### L IPA, CMP, CK, HSTROPN #### [facility] [address] [place] [address] Dr. Frank Nugent EGFR-NON AF ALBANIAN 58 mL/min/1.73m2 Critically low >=60 [facility] Comment on above: Performed By: #### L IPA, CMP, CK, HSTROPN #### [facility] [address] [place] [address] Dr. Frank Nugent Globulin (S) [Mass/Vol] 4.0 g/dL Normal [facility] Comment on above: Performed By: #### L IPA, CMP, CK, HSTROPN #### [facility] [address] [place] [address] Dr. Frank Nugent Glucose [Mass/Vol] 244 mg/dL Critically high 74-106 T [facility] Comment on above: Performed By: #### L IPA, CMP, CK, HSTROPN #### [facility] [address] [place] [address] Dr. Frank Nugent Potassium [Moles/Vol] 3.7 mmol/L Normal 3.5-5.1 [facility] Comment on above: Performed By: #### L IPA, CMP, CK, HSTROPN #### [facility] [address] [place] [address] Dr. Frank Nugent Protein [Mass/Vol] 8.0 g/dL Normal 6.4-8.2 [facility] Comment on above: Performed By: #### L IPA, CMP, CK, HSTROPN #### [facility] [address] [address] [address] Frank Nugent Sodium [Moles/Vol] 135 mmol/L Critically low 136-145 [facility] Comment on above: Performed By: #### L IPA, CMP, CK, HSTROPN #### [facility] [address] [address] [address] Frank Nugent Urea nitrogen [Mass/Vol] 19.0 mg/dL Critically high 7.0-18.0 [facility] Comment on above: Performed By: #### L IPA, CMP, CK, HSTROPN #### [facility] [address] [place] [address] Dr. Frank Nugent Urea nitrogen/Creatinine [Mass ratio] 14.5 mg/mg Normal [facility] Comment on above: Performed By: #### L IPA, CMP, CK, HSTROPN #### [facility] [address] [place] [address] Dr. Frank Nugent PROTIMEon 09-13-2022 INR Coag (PPP) [Relative time] 0.97 {INR} Normal [facility] Comment on above: Performed By: #### L IPA, CMP, CK, HSTROPN #### [facility] [address] [place] [address] Dr. Frank Nugent INR GUIDELINES SEE BELOW Normal [facility] Comment on above: Result Comment: GHASSAN RED INR: 2.0 - 3.0 CONDITIONS NOT LISTED BELOW 2.5 - 3.5 FOR PROSTHETIC HEART VALVE REPLACEMENT 2.5 - 3.5 RECURRENT THROMBOSIS Performed By: #### L IPA, CMP, CK, HSTROPN #### [facility] [address] [place] [address] Dr. Frank Nugent PT Coag (PPP) [Time] 10.3 s Normal 9.0-11.6 [facility] Comment on above: Performed By: #### L IPA, CMP, CK, HSTROPN #### [facility] [address] [place] [address] Dr. Frank Nugent SYMPTOMATIC COVID-19 ANTIGEN on 09-13-2022 EUA Statement SEE BELOW Normal [facility] Comment on above: Result Comment: This test [...] #### L IPA, CMP, CK, HSTROPN #### [facility] [address] [place] [address] Dr. Frank Nugent SARS-CoV-2 (COVID-19) RNA JABIER+probe Ql (Unsp spec) Negative Normal NEGATIVE [facility] Comment on above: Performed By: #### L IPA, CMP, CK, HSTROPN #### [facility] [address] [place] [address] Dr. Frank Nugent TROPONIN, HIGH SENSITIVITYon 09-13-2022 HSTROP 5.4 pg/mL Normal 4.0-76.1 [facility] Comment on above: Result Comment: CUT- OFF POINTS HAVE BEEN ESTABLISHED BASED ON THE FOURTH UNIVERSAL DEFINITIONS OF MYOCARDIAL INFARCTION. THE UPPER REFERENCE LIMIT (URL) OF TROPONIN, DEFINED THE 99TH PERCENTILE OF cTnI DISTRIBUTION IN A REFERENCE POPULATION, HAS BEEN CONFIRMED THE DECISION THRESHOLD FOR PA DIAGNOSIS. Performed By: #### L IPA, CMP, CK, HSTROPN #### [facility] [address] [place] [address] Dr. Frank Nugent URINE MICROSCOPIC ONLYon BACTERIA SMALL Abnormal NONE SEEN The [facility] Comment on above: Performed By: #### L IPA, CMP, CK, HSTROPN #### [facility] [address] [place], [place] [id number] Dr. Frank Nugent Bacteria identified Cx Nom (U) INDICATED Normal [facility] Comment on above: Performed By: #### L IPA, CMP, CK, HSTROPN #### [facility] [address] [place] [address] Dr. Frank Nugent CAST NONE SEEN Normal NONE SEEN [facility] Comment on above: Performed By: #### L IPA, CMP, CK, HSTROPN #### [facility] [address] [address] [address] Frank Nugent Crystals LM Nom (Urine sed) NONE SEEN Normal NONE SEEN [facility] Comment on above: Performed By: #### L IPA, CMP, CK, HSTROPN #### [facility] [address] [place] [address] Dr. Frank Nugent Epithelial cells LM Ql (Urine sed) FEW Abnormal NONE SEEN /RARE [facility] Comment on above: Performed By: #### L IPA, CMP, CK, HSTROPN #### [facility] [address] [place] [address] Dr. Frank Nugent MUCOUS NONE SEEN Normal NONE SEEN [facility] Comment on above: Performed By: #### L IPA, CMP, CK, HSTROPN #### [facility] [address] [place] [address] Dr. Frank Nugent RBC 2-5 Abnormal 0-2 [facility] Comment on above: Performed By: #### L IPA, CMP, CK, HSTROPN #### [facility] [address] [place] [address] Dr. Frank Nugent WBC 5-10 Abnormal NONE SEEN The [facility] Comment on above: Performed By: #### L IPA, CMP, CK, HSTROPN #### [facility] [address] [place] [address] Dr. Frank Nugent XR CHEST 1 Von [...] YURY FERNANDEZ Date: 2022-09-13 13:36 Normal [facility] INSULINon 08-12-2022 Insulin 73.3 uIU/mL Critically high 2.6-24.9 [facility] Comment on above: Performed By: #### L IPA, CMP, CK, HSTROPN #### [facility] [address] [place] [address] Dr. Frank Nugent BNPon 08-10-2022 Natriuretic peptide B (Bld) [Mass/Vol] 48.0 pg/mL Normal <=900.0 [facility] Comment on above: Performed By: #### L IPA, CMP, CK, HSTROPN #### [facility] [address] [place] [address] Dr. Frank Nugent CBC AUTO DIFFon 08-10-2022 BASO # 0.0 103/ul Normal 0.0-0.1 [facility] Comment on above: Performed By: #### C BC #### [facility] [address] [place] [address] Dr. Frank Nugent Basophils/100 WBC (Bld) 0.3 % Normal 0.2-2.0 [facility] Comment on above: Performed By: #### C BC #### [facility] [address] [place] [address] Dr. Frank Nugent EO # 0.2 103/ul Normal 0.0-0.7 [facility] Comment on above: Performed By: #### C BC #### [facility] [address] [place] [address] Dr. Frank Nugent Eosinophils/100 WBC (Bld) 4.9 % Normal 0.9-7.0 [facility] Comment on above: Performed By: #### C BC #### [facility] [address] [place] [address] Dr. Frank Nugent Erythrocyte distribution width (RBC) [Ratio] 12.8 % Normal 11.0-15.0 [facility] Comment on above: Performed By: #### C BC #### [facility] [address] [place] [address] Dr. Frank Nugent Hematocrit (Bld) [Volume fraction] 43.8 % Normal 42.0-54.0 [facility] Comment on above: Performed By: #### C BC #### [facility] [address] [place] [address] Dr. Frank Nugent Hemoglobin (Bld) [Mass/Vol] 15.4 g/dL Normal 14.0-18.0 [facility] Comment on above: Performed By: #### C BC #### [facility] [address] [place] [address] Dr. Frank Nugent IG # 0.00 10e3/ul Normal 0.00-0.03 [facility] Comment on above: Performed By: #### C BC #### [facility] [address] [place] [address] Dr. Frank Nugent IG % 0.0 % Normal 0.0-0.5 [facility] Comment on above: Performed By: #### C BC #### [facility] [address] [place] [address] Dr. Frank Nugent LYMPH # 0.8 103/ul Critically low 1.2-3.8 [facility] Comment on above: Performed By: #### C BC #### [facility] [address] [place] [address] Dr. Frank Nugent Lymphocytes/100 WBC (Bld) 23.9 % Normal 20.5-60.0 [facility] Comment on above: Performed By: #### C BC #### [facility] [address] [place] [address] Dr. Frank Nugent MANUAL DIFF REQ NO Normal [facility] Comment on above: Performed By: #### C BC #### [facility] [address] [address] [address] Frank Nugent MCH (RBC) [Entitic mass] 30.0 pg Normal 25.9-34.0 [facility] Comment on above: Performed By: #### C BC #### [facility] [address] [address] [address] Frank Nugent MCHC (RBC) [Mass/Vol] 35.2 g/dL Normal 29.9-35.2 [facility] Comment on above: Performed By: #### C BC #### [facility] [address] [place] [address] Dr. Frank Nugent MCV (RBC) [Entitic vol] 85.2 fL Normal 80.0-94.0 [facility] Comment on above: Performed By: #### C BC #### [facility] [address] [place] [address] Dr. Frank Nugent MONO # 0.4 103/ul Normal 0.3-0.8 [facility] Comment on above: Performed By: #### C BC #### [facility] [address] [place] [address] Dr. Frank Nugent Monocytes/100 WBC (Bld) 12.8 % Critically high 1.7-12.0 [facility] Comment on above: Performed By: #### C BC #### [facility] [address] [place] [address] Dr. Frank Nugent NEUT # 1.9 103/ul Normal 1.4-6.5 [facility] Comment on above: Performed By: #### C BC #### [facility] [address] [place] [address] Dr. Frank Nugent Neutrophils/100 WBC (Bld) 58.1 % Normal 43.0-75.0 [facility] Comment on above: Performed By: #### C BC #### [facility] [address] [place] [address] Dr. Frank Nugent Platelet mean volume (Bld) [Entitic vol] 11.3 fL Normal 9.5-13.5 [facility] Comment on above: Performed By: #### C BC #### [facility] [address] [address] [address] Frank Nugent PLT 224 103/ul Normal 150-450 [facility] Comment on above: Performed By: #### C BC #### [facility] [address] [place] [address] Dr. Frank Nugent RBC 5.14 106/ul Normal 4.70-6.10 [facility] Comment on above: Performed By: #### C BC #### [facility] [address] [address] [address] Frank Nugent WBC 3.3 103/ul Critically low 4.0-11.0 [facility] Comment on above: Performed By: #### C BC #### [facility] [address] [place] [address] Dr. Frank Nugent FREE THYROXINE INDEX T7on FTI 2.63 Normal 1.30-4.50 [facility] Comment on above: Performed By: #### L IPA, CMP, CK, HSTROPN #### [facility] [address] [place] [address] Dr. Frank Nugent T3U 35.0 % Normal 33.0-40.0 [facility] Comment on above: Performed By: #### L IPA, CMP, CK, HSTROPN #### [facility] [address] [place] [address] Dr. Frank Nugent T4 [Mass/Vol] 7.50 ug/dL Normal 4.50-12.10 [facility] Comment on above: Performed By: #### L IPA, CMP, CK, HSTROPN #### [facility] [address] [place] [address] Dr. Frank Nugent GLYCOHEMOGLOBIN A1Con 2022 ADA RECOMMENDATION SEE BELOW Normal [facility] Comment on above: Result Comment: ADA RECOMMENDED LIMIT 4.0 - 6.0 ADA THERAPEUTIC TARGET < 7.0 ACTION SUGGESTED > 7.0 Performed By: #### A 1C #### [facility] [address] [address] [address] Frank Nugent Glucose [Mass/Vol] 169 mg/dL Normal [facility] Comment on above: Performed By: #### A 1C #### [facility] [address] [address] [address] Frank Nugent HbA1c (Bld) [Mass fraction] 7.5 % Critically high 4.5-6.2 [facility] Comment on above: Performed By: #### A 1C #### [facility] [address] [place] [address] Dr. Frank Nugent LIPID PROFILEon 08-10-2022 CHOL-HDL RATIO NORM SEE BELOW Normal [facility] Comment on above: Result Comment: 3.3 - 4.4 LOW RISK 4.4 - 7.1 AVERAGE RISK 7.1 - 11.0 MODERATE RISK >11.0 HIGH RISK Performed By: #### L IPA, CMP, CK, HSTROPN #### [facility] [address] [address] [address] Frank Nugent Cholesterol [Mass/Vol] 183 mg/dL Normal <=200 [facility] Comment on above: Performed By: #### L IPA, CMP, CK, HSTROPN #### [facility] [address] [address] [address] Frank Nugent Cholesterol in HDL [Mass/Vol] 29 mg/dL Critically low 40-60 [facility] Comment on above: Performed By: #### L IPA, CMP, CK, HSTROPN #### [facility] [address] [address] [address] Frank Nugent Cholesterol in LDL [Mass/Vol] 83.2 mg/dL Normal [facility] Comment on above: Performed By: #### L IPA, CMP, CK, HSTROPN #### [facility] [address] [address] [address] Frank Nugent Cholesterol.total/Ch olesterol in HDL [Mass ratio] 6.3 {ratio} Normal [facility] Comment on above: Performed By: #### L IPA, CMP, CK, HSTROPN #### [facility] [address] [address] [address] Frank Nugent HDL NORMAL > or = 60 mg/dl - LO W CARDIOVASCULAR RISK <40 mg/dl - HIGH CARDIOVASCULAR RISK Normal [facility] Comment on above: Performed By: #### L IPA, CMP, CK, HSTROPN #### [facility] [address] [address] [address] Frank Nugent LDL CALC NORMAL SEE BELOW Normal [facility] Comment on above: Result Comment: <100 mg/dl OPTIMAL 100 - 129 mg/dl NEAR OR ABOVE OPTIMAL 130 - 159 mg/dl BORDERLINE HIGH 160 - 189 mg/dl HIGH >190 mg/dl VERY HIGH Performed By: #### L IPA, CMP, CK, HSTROPN #### [facility] [address] [address] [address] Frank Nugent Triglyceride [Mass/Vol] 354 mg/dL Critically high <=150 [facility] Comment on above: Performed By: #### L IPA, CMP, CK, HSTROPN #### [facility] [address] [address] [address] Frank Nugent VLDL CALC 70.8 mg/dL Normal [facility] Comment on above: Performed By: #### L IPA, CMP, CK, HSTROPN #### [facility] [address] [address] [address] Frank Nugent PROF 14(COMP METB)on 023 Albumin [Mass/Vol] 4.4 g/dL Normal 3.4-5.0 [facility] Comment on above: Performed By: #### L IPA, CMP, CK, HSTROPN #### [facility] [address] [address] [address] Frank Nugent Albumin/Globulin [Mass ratio] 1.2 {ratio} Normal [facility] Comment on above: Performed By: #### L IPA, CMP, CK, HSTROPN #### [facility] [address] [address] [address] Frank Nugent ALP [Catalytic activity/Vol] 81 U/L Normal 46-116 [facility] Comment on above: Performed By: #### L IPA, CMP, CK, HSTROPN #### [facility] [address] [address] [address] Frank Nugent ALT [Catalytic activity/Vol] 102 U/L Critically high 16-63 [facility] Comment on above: Performed By: #### L IPA, CMP, CK, HSTROPN #### [facility] [address] [address] [address] Frank Nugent Anion gap [Moles/Vol] 14.6 mmol/L Normal [facility] Comment on above: Performed By: #### L IPA, CMP, CK, HSTROPN #### [facility] [address] [place] [address] Dr. Frank Nugent AST [Catalytic activity/Vol] 55 U/L Critically high 15-37 [facility] Comment on above: Performed By: #### L IPA, CMP, CK, HSTROPN #### [facility] [address] [place] [address] Dr. Frank Nugent Bilirubin [Mass/Vol] 1.0 mg/dL Normal 0.2-1.0 [facility] Comment on above: Performed By: #### L IPA, CMP, CK, HSTROPN #### [facility] [address] [place] [address] Dr. Frank Nugent Calcium [Mass/Vol] 9.5 mg/dL Normal 8.5-10.1 [facility] Comment on above: Performed By: #### L IPA, CMP, CK, HSTROPN #### [facility] [address] [place] [address] Dr. Frank Nugent Chloride [Moles/Vol] 103 mmol/L Normal 98-107 [facility] Comment on above: Performed By: #### L IPA, CMP, CK, HSTROPN #### [facility] [address] [place] [address] Dr. Frank Nugent CO2 [Moles/Vol] 23.4 mmol/L Normal 21.0-32.0 [facility] Comment on above: Performed By: #### L IPA, CMP, CK, HSTROPN #### [facility] [address] [address] [address] Frank Nugent Creatinine [Mass/Vol] 0.88 mg/dL Normal 0.70-1.30 [facility] Comment on above: Performed By: #### L IPA, CMP, CK, HSTROPN #### [facility] [address] [address] [address] Frank Nugent EGFR-AF ALBANIAN >60 Normal >=60 [facility] Comment on above: Performed By: #### L IPA, CMP, CK, HSTROPN #### [facility] [address] [place] [address] Dr. Frank Nugent EGFR-NON AF ALBANIAN >60 Normal >=60 [facility] Comment on above: Performed By: #### L IPA, CMP, CK, HSTROPN #### [facility] [address] [place] [address] Dr. Frank Nugent Globulin (S) [Mass/Vol] 3.6 g/dL Normal [facility] Comment on above: Performed By: #### L IPA, CMP, CK, HSTROPN #### [facility] [address] [place] [address] Dr. Frank Nugent Glucose [Mass/Vol] 164 mg/dL Critically high 74-106 T [facility] Comment on above: Performed By: #### L IPA, CMP, CK, HSTROPN #### [facility] [address] [address] [address] Frank Nugent Potassium [Moles/Vol] 4.0 mmol/L Normal 3.5-5.1 [facility] Comment on above: Performed By: #### L IPA, CMP, CK, HSTROPN #### [facility] [address] [place] [address] Dr. Frank Nugent Protein [Mass/Vol] 8.0 g/dL Normal 6.4-8.2 [facility] Comment on above: Performed By: #### L IPA, CMP, CK, HSTROPN #### [facility] [address] [place] [address] Dr. Frank Nugent Sodium [Moles/Vol] 137 mmol/L Normal 136-145 [facility] Comment on above: Performed By: #### L IPA, CMP, CK, HSTROPN #### [facility] [address] [place] [address] Dr. Frank Nugent Urea nitrogen [Mass/Vol] 16.0 mg/dL Normal 7.0-18.0 [facility] Comment on above: Performed By: #### L IPA, CMP, CK, HSTROPN #### [facility] [address] [address] [address] Frank Nugent Urea nitrogen/Creatinine [Mass ratio] 18.2 mg/mg Normal [facility] Comment on above: Performed By: #### L IPA, CMP, CK, HSTROPN #### [facility] [address] [place] [address] Dr. Frank Nugent TSHon 08-10-2022 TSH 0.879 uIU/mL Normal 0.358-3.740 [facility] Comment on above: Performed By: #### L IPA, CMP, CK, HSTROPN #### [facility] [address] [place] [address] Dr. Frank Nugent URIC ACID SERUMon 08-10-2022 Urate [Mass/Vol] 5.1 mg/dL Normal 3.5-7.2 [facility] Comment on above: Performed By: #### L IPA, CMP, CK, HSTROPN #### [facility] [address] [place] [address] Dr. Frank Nugent VITAMIN D 25 OHon 08-10-2022 VIT D 25-OH 12.1 ng/mL Normal [facility] Comment on above: Performed By: #### P SASC, VITAD #### [facility] [address] [place] [address] Dr. Frank Nugent VIT D RANGES SEE BELOW Normal [facility] Comment on above: Result Comment: <20 ng/mL Vit D deficient 20 - <30 ng/mL Vit D insufficient 30 - 100 ng/mL Vit D sufficient >100 ng/mL Potential Toxicity Performed By: #### P SASC, VITAD #### [facility] [address], [place] [address] Dr. Frank Nugent Follow Up (Pulmonary Medicin e)on 01-12-2021 Follow Up (Pulmonary Medicine) Diagnoses/Problems Dyspnea on exertion (786.09) (R06.00) Sarcoidosis (135) (D86.9) CLEM on CPAP (327.23,V46.8) (G47.33,Z99.89) Orders Cardiopulmonary Stress Test (Met Stress Test); Status:Hold For - Scheduling; Requested for:[id number]; Perform:[facility] ([facility]); Due:98Wzy9739;Ordered ; For:Dyspnea on exertion; Ordered By:Carter Dangelo; [...] Dr. Zuñiga Other: Dr. Jaimes (pulmonary in [place]) HPI: 11/22/2020: At baseline, he had no [...] He was started on prednisone by his fall intern in July. He initially felt slightly improved but shortly started worsening again. 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 Has known exposure to asbestos, silica or beryllium CTD evaluation: No hx of joint pain/swelling, skin rashes, Raynaud's, sicca syndrome, eye redness, muscle pain and weakness, difficulty swallowing. Family History: No family history of lung diseases or cancer Imaging history: (I have personally reviewed the imaging below) 12/15/2020 HRC (more content not included)... Normal [employer] Tobacco Screening.on 021 Fall risk assessment a) No falls within the last year [facility] Work Phone: [phone] Tobacco use status CPHS b) No [facility] Work Phone: [phone] No Panel Informationon 12-15 [email or web address] 1 :[email or web address]?RetrieveTest ByDateTime?PatientID= [id number]&Date=2020&Time=13%3a21%3a3 0%3a00&TestType=ECG&S ite=1&OutputType=PDF& Ext=PDF [facility] Work Phone: [phone] Normal sinus rhythm [facility] Work Phone: [phone] Normal [facility] Work Phone: [phone] [facility] Work Phone: [phone] 1 [facility] Work Phone: [phone] 1 [facility] Work Phone: [phone] 1 [facility] Work Phone: [phone] 1 [facility] Work Phone: [phone] [facility] Work Phone: [phone] 1 [facility] Work Phone: [phone] 1 [facility] Work Phone: [phone] 1 [facility] Work Phone: [phone] 1 [facility] Work Phone: [phone] 1 [facility] Work Phone: [phone] 1 [facility] Work Phone: [phone] 1 [facility] Work Phone: [phone] 1 [facility] Work Phone: [phone] Follow Up (Pulmonary Medicin e)on 11-22-2020 Follow Up (Pulmonary Medicine) Diagnoses/Problems Daily caffeine consumption Sarcoidosis (135) (D86.9) Mediastinal lymphadenopathy (785.6) (R59.0) Dyspnea on exertion (786.09) (R06.00) CLEM on CPAP (327.23,V46.8) (G47.33,Z99.89) Orders 6 Minute Walk Test; Status:Hold For - Scheduling; Requested for:[id number]; Perform:[facility]; Due:20Feb2021;Ordered ; For:ILD (interstitial lung disease); Ordered By:Carter Dangelo; Calcium, Urine 24 Hour; Status:Active; Requested for:84Ytc4766; Perform:[facility] Services - Lab To Draw (Non-Blood Test); Due:20Feb2021;Ordered ; For:ILD (interstitial lung disease); Ordered By:Carter Dangelo; Complete Blood Count + Differential; Status:In Progress - Specimen/Data Collected; Done: 22Nov2020 Perform:[facility] - Lab To Draw (Blood Test); Due:20Feb2021;Ordered ; For:ILD (interstitial lung disease); Ordered By:Carter Dangelo; Complete PFT w/o ABG; Status:Hold For - Scheduling; Requested for:22Nov2020; Perform:[facility]; Due:20Feb2021;Ordered ; For:ILD (interstitial lung disease); Ordered By:Carter Dangelo; Comprehensive Metabolic Panel; Status:In Progress - Specimen/Data Collected; Done: 22Nov2020 Perform:Lab Services - Lab To Draw (Blood Test); Due:20Feb2021;Ordered ; For:ILD (interstitial lung disease); Ordered By:Carter Dangelo; CT Chest without Contrast; Status:Active; Requested for:15Dec2020; Perform:[facility];Ordered; For:ILD (interstitial lung disease); Ordered By:Carter Dangelo; Patient taking Metformin or Derivatives? : No Radiologist to Determine Optimal Study : Y What are the patient's signs and symptoms? : dyspnea on exertion Echocardiogram; Status:Hold For - Scheduling; Requested for:22Nov2020; Perform:[facility] ([facility]); Due:20Feb2021;Ordered ; For:ILD (interstitial lung disease); Ordered By:Carter Dangelo; Electrocardiogram EKG; Status:Hold For - Scheduling; Requested for:22Nov2020; Perform:[facility]; Due:20Feb2021;Ordered ; For:ILD (interstitial lung disease); [...] TB; Status:In Progress - Specimen/Data Collected; Done: 61Ooh3513 Perform:[facility] Services - Lab To Draw (Blood Test); Due:20Feb2021;Ordered ; For:ILD (interstitial lung disease); Ordered By:Carter Dangelo; Urinalysis; Status:In Progress - Specimen/Data Collected; Done: 18Ikm5554 Perform:[facility] - Lab To Draw (Non-Blood Test); Due:20Feb2021;Ordered ; For:ILD (interstitial lung disease); Ordered By:Carter Dangelo; Vitamin D 25-Hydroxy; Status:In Progress - Specimen/Data Collected; Done: 08Jgr0638 Perform:[facility] Services - Lab To Draw (Blood Test); Due:20Feb2021;Ordered ; For:ILD (interstitial lung disease); Ordered By:Carter Dangelo; Vitamin-D 1,25-Dihydroxy, Level; Status:In Progress - Specimen/Data Collected; Done: 70Siu0139 Perform:Lab Services - Lab To Draw (Blood [...] Daily Vitals Vital Signs Recorded: 22Nov2020 01:10PM Ogqfxnddcst60.8 F Heart Rate96 Ushwoojz848 Ytcbnzkej28 Lsjlkx810 lb 14.4 oz Tobacco Useb) No Fall Screeninga) No falls within the last year O2 Bkvyhsnvdp53, RA Pain Scale0 Signatures Electronically signed by : Carter Dangelo MD; Nov 22 2020 5:33PM EST (Author) Normal [employer] Initial Visit (Pulmonary Med icine)on 11-22-2020 Initial Visit (Pulmonary Medicine) Diagnoses/Problems Daily caffeine consumption Sarcoidosis (135) (D86.9) Mediastinal lymphadenopathy (785.6) (R59.0) Dyspnea on exertion (786.09) (R06.00) CLEM on CPAP (327.23,V46.8) (G47.33,Z99.89) Orders 6 Minute Walk Test; Status:Hold For - Scheduling; Requested for:22Nov2020; Perform:[facility]; Due:20Feb2021;Ordered ; For:ILD (interstitial lung disease); Ordered By:Carter Dangelo; Calcium, Urine 24 Hour; Status:Active; Requested for:22Nov2020; Perform:[facility] - Lab To Draw (Non-Blood Test); Due:20Feb2021;Ordered ; For:ILD (interstitial lung disease); Ordered By:Carter Dangelo; Complete Blood Count + Differential; Status:In Progress - Specimen/Data Collected; Done: 74Shp9415 Perform:[facility] - Lab To Draw (Blood Test); Due:20Feb2021;Ordered ; For:ILD (interstitial lung disease); Ordered By:Carter Dangelo; Complete PFT w/o ABG; Status:Hold For - Scheduling; Requested for:22Nov2020; Perform:[facility]; Due:20Feb2021;Ordered ; For:ILD (interstitial lung disease); Ordered By:Carter Dangelo; Comprehensive Metabolic Panel; Status:In Progress - Specimen/Data Collected; Done: [id number] Perform:Lab Services - Lab To Draw (Blood Test); Due:20Feb2021;Ordered ; For:ILD (interstitial lung disease); Ordered By:Carter Dangelo; CT Chest without Contrast; Status:Active; Requested for:71Ete6008; Perform:[facility];Ordered; For:ILD (interstitial lung disease); Ordered By:Carter Dangelo; Patient taking Metformin or Derivatives? : No Radiologist to Determine Optimal Study : Y What are the patient's signs and symptoms? : dyspnea on exertion Echocardiogram; Status:Hold For - Scheduling; Requested for:22Nov2020; Perform:[facility] ([facility]); Due:20Feb2021;Ordered ; For:ILD (interstitial lung disease); Ordered By:Carter Dangelo; Electrocardiogram EKG; Status:Hold For - Scheduling; Requested for:22Nov2020; Perform:[facility] [address]; Due:20Feb2021;Ordered ; For:ILD (interstitial lung disease); [...] 25-Hydroxy; Status:In Progress - Specimen/Data Collected; Done: 83Ifd6857 Perform:[facility] Services - Lab To Draw (Blood Test); Due:20Feb2021;Ordered ; For:ILD (interstitial lung disease); Ordered By:Carter Dangelo; Vitamin-D 1,25-Dihydroxy, Level; Status:In Progress - Specimen/Data Collected; Done: 34Zsl4684 Perform:Lab Services - Lab To Draw (Blood [...] will sta (more content not included)... Normal [employer] Tobacco Screening.on 021 Fall risk assessment a) No falls within the last year [facility] [place] Work Phone: Tobacco use status CP b) No [facility] Work Phone: Consult (Pulmonary Medicine) [...] HFA Social History: Tobacco: Never smoker Occupation: [employer], dust exposure Imaging history: (I have personally [...] Auto #/vol (Bld) 0.0 10*3/uL Normal 0.0-0.2 [facility] Basophils/100 WBC Auto (Bld) 0.5 % Normal [facility] Eosinophils Auto #/vol (Bld) 0.1 10*3/uL Normal 0.0-0.7 [facility] Eosinophils/100 WBC Auto (Bld) 2.6 % Normal [facility] Erythrocyte distribution width Auto Ratio (RBC) 12.6 % Normal 11.5-14.5 [facility] Hematocrit Auto Volume Fraction (Bld) 38.2 % Low 42.0-52.0 [facility] Hemoglobin mass conc (Bld) 13.1 g/dL Low 14.0-18.0 [facility] Lymphocytes Auto #/vol (Bld) 0.8 10*3/uL Low 1.0-4.8 [facility] Lymphocytes/100 WBC Auto (Bld) 18.0 % Normal [facility] MCH Auto Entitic mass (RBC) 30.7 pg Normal 27.0-31.3 [facility] MCHC Auto mass conc (RBC) 34.4 % Normal 33.0-37.0 [facility] MCV Auto Entitic volume (RBC) 89.3 fL Normal 80.0-100.0 [facility] Monocytes Auto #/vol (Bld) 0.7 10*3/uL Normal 0.2-0.8 [facility] Monocytes/100 WBC Auto (Bld) 14.3 % Normal [facility] Neutrophils Auto #/vol (Bld) 3.0 10*3/uL Normal 1.4-6.5 [facility] Neutrophils/100 WBC Auto (Bld) 64.6 % Normal [facility] Platelets Auto #/vol (Bld) 233 10*3/uL Normal 130-400 [facility] RBC Auto #/vol (Bld) 4.28 10*6/uL Low 4.70-6.10 [facility] WBC Auto #/vol (Bld) 4.6 10*3/uL Low 4.8-10.8 [facility] Sedimentation Rateon 018 Sedimentation Rate 48 mm Critically high 0-10 [facility] [place] Basic Metabolic Panel Reflex Mgon 05-01-2018 Anion gap 3 molar conc 15 mmol/L Critically high 7-13 [facility] Calcium mass conc 8.9 mg/dL Normal 8.6-10.2 [facility] Chloride molar conc 102 mmol/L Normal 98-107 [facility] CO2 molar conc 22 mmol/L Normal 22-29 [facility] Creatinine mass conc 0.85 mg/dL Normal 0.70-1.20 [facility] GFR/1.73 sq M predicted among blacks MDRD vol rate/area (S/P/Bld) mL/min/{1.73_m2} Normal >60 [facility] Comment on above: Result Comment: >60 mL/min/1.73m2 EGFR, calc. for ages 18 and older using theMDRD formula (not corrected for weight), is valid for stablerenal function. GFR/1.73 sq M.predicted MDRD vol rate/area mL/min/{1.73_m2} Normal >60 [facility] Comment on above: Result Comment: >60 mL/min/1.73m2 EGFR, calc. for ages 18 and older using theMDRD formula (not corrected for weight), is valid for stablerenal function. Glucose mass conc 189 mg/dL Critically high 74-109 [facility] Potassium reflex Mg 4.7 mEq/L Normal 3.5-5.1 [facility] Sodium molar conc 139 mmol/L Normal 132-144 [facility] Urea nitrogen mass conc 19 mg/dL Normal 6-20 [facility] CBC With Platelet and Differ entialon 05-01-2018 Basophils Auto #/vol (Bld) 0.0 10*3/uL Normal 0.0-0.2 [facility] Basophils/100 WBC Auto (Bld) 0.2 % Normal [facility] Eosinophils Auto #/vol (Bld) 0.0 10*3/uL Normal 0.0-0.7 [facility] Eosinophils/100 WBC Auto (Bld) 0.0 % Normal [facility] Erythrocyte distribution width Auto Ratio (RBC) 12.8 % Normal 11.5-14.5 [facility] Hematocrit Auto Volume Fraction (Bld) 40.5 % Low 42.0-52.0 [facility] Hemoglobin mass conc (Bld) 14.3 g/dL Normal 14.0-18.0 [facility] Lymphocytes Auto #/vol (Bld) 0.6 10*3/uL Low 1.0-4.8 [facility] Lymphocytes/100 WBC Auto (Bld) 6.1 % Normal [facility] MCH Auto Entitic mass (RBC) 31.1 pg Normal 27.0-31.3 [facility] MCHC Auto mass conc (RBC) 35.3 % Normal 33.0-37.0 [facility] MCV Auto Entitic volume (RBC) 88.2 fL Normal 80.0-100.0 [facility] Monocytes Auto #/vol (Bld) 0.3 10*3/uL Normal 0.2-0.8 [facility] Monocytes/100 WBC Auto (Bld) 2.6 % Normal [facility] Neutrophils Auto #/vol (Bld) 9.1 10*3/uL Critically high 1.4-6.5 [facility] Neutrophils/100 WBC Auto (Bld) 91.1 % Normal [facility] Platelets Auto #/vol (Bld) 209 10*3/uL Normal 130-400 [facility] RBC Auto #/vol (Bld) 4.60 10*6/uL Low 4.70-6.10 [facility] WBC Auto #/vol (Bld) 9.9 10*3/uL Normal 4.8-10.8 [facility] XR LUMBAR SPINE (2-3 VIEWS)o n 05-01-2018 [...] Rodríguez, DOSigned by:Matteo Rodríguez, DO05/01/18inal result Normal [facility] Antibody IDon 04-30-2018 Antibody ID PATIENT: LAURO Chan LOC: LCJOSE L,ORPOOL,NONBILL# : [id number] : 1970 SEX: MORDERED BY: SAVANAH BILLS ORDERED : 04/30/2018 11:55 COLLECTED: 04/30/2018 10:45ORDER : [id number] RECEIVED : 04/30/2018 10:45 Notified [facility] of positive ab screen and delay of compatible blood 04/30/18 11:40 Erika Rodgers TEST NAME RESULT UNITS RANGES ABN FL STAntibody ID POS, Cold Auto Aggluti F Normal [facility] Basic Metabolic Panel Reflex Mgon 04-30-2018 Anion gap 3 molar conc 17 mmol/L Critically high 7-13 [facility] Calcium mass conc 9.1 mg/dL Normal 8.6-10.2 [facility] Chloride molar conc 102 mmol/L Normal 98-107 [facility] CO2 molar conc 20 mmol/L Low 22-29 [facility] Creatinine mass conc 1.07 mg/dL Normal 0.70-1.20 [facility] GFR/1.73 sq M predicted among blacks MDRD vol rate/area (S/P/Bld) mL/min/{1.73_m2} Normal >60 [facility] Comment on above: Result Comment: >60 mL/min/1.73m2 EGFR, calc. for ages 18 and older using theMDRD formula (not corrected for weight), is valid for stablerenal function. GFR/1.73 sq M.predicted MDRD vol rate/area mL/min/{1.73_m2} Normal >60 [facility] Comment on above: Result Comment: >60 mL/min/1.73m2 EGFR, calc. for ages 18 and older using theMDRD formula (not corrected for weight), is valid for stablerenal function. Glucose mass conc 132 mg/dL Critically high 74-109 [facility] Potassium reflex Mg 4.1 mEq/L Normal 3.5-5.1 [facility] Sodium molar conc 139 mmol/L Normal 132-144 [facility] Urea nitrogen mass conc 21 mg/dL Critically high 6-20 [facility] CBC With Platelet No Differe ntialon 04-30-2018 Erythrocyte distribution width Auto Ratio (RBC) 12.9 % Normal 11.5-14.5 [facility] Hematocrit Auto Volume Fraction (Bld) 43.8 % Normal 42.0-52.0 [facility] Hemoglobin mass conc (Bld) 15.0 g/dL Normal 14.0-18.0 [facility] MCH Auto Entitic mass (RBC) 30.7 pg Normal 27.0-31.3 [facility] MCHC Auto mass conc (RBC) 34.3 % Normal 33.0-37.0 [facility] MCV Auto Entitic volume (RBC) 89.5 fL Normal 80.0-100.0 [facility] Platelets Auto #/vol (Bld) 208 10*3/uL Normal 130-400 [facility] RBC Auto #/vol (Bld) 4.89 10*6/uL Normal 4.70-6.10 [facility] WBC Auto #/vol (Bld) 10.4 10*3/uL Normal 4.8-10.8 [facility] BRIAN Poly Tubeon 04-30-2018 BRIAN Poly Tube PATIENT: LAURO Chan LOC: GILBERT RIVERA NONBILL# : [id number] : 1970 SEX: MORDERED BY: SAVANAH BILLS ORDERED : 04/30/2018 12:48 COLLECTED: 04/30/2018 10:45ORDER : [id number] RECEIVED : 04/30/2018 10:45 Notified [facility] of positive ab screen and delay of compatible blood 04/30/18 11:40 Erika Rodgers TEST NAME RESULT UNITS RANGES ABN FL STDAT Poly Tube NEG F Normal [facility] FLUORO FOR SURGICAL PROCEDUR ESon 04-30-2018 FLUORO [...] by:MARY ANN Lucianoigned by:Cruz Ledesma MD05/01/18inal result [facility] RBC LRon 04-30-2018 RBC Auto #/vol (Bld) PATIENT: LAURO Chan LOC: RUPERTN226,01BILL# : [id number] : 1970 SEX: MORDERED BY: SAVANAH BILLS ORDERED : 04/30/2018 11:55 COLLECTED: 04/30/2018 18:46ORDER : [id number] RECEIVED : 04/30/2018 19:12 Notified [facility] of positive ab screen and delay of compatible blood 04/30/18 11:40 Erika Rodgers TEST NAME RESULT UNITS RANGES ABN FL STRBC LR [id number] RBC LR W0 F = Normal [facility] Rejection Notificationon Rejected Test tyrcc [facility] Type and Screen Capture 3 sc rn cellon 04-30-2018 Type and Screen Capture 3 scrn cell PATIENT: LAURO Chan LOC: DARLING RIVERAPOOL,NONBILL# : [id number] : 1970 SEX: MORDERED BY: SAVANAH BILLS ORDERED : 04/30/2018 10:06 COLLECTED: 04/30/2018 10:45ORDER : [id number] RECEIVED : 04/30/2018 10:45 Notified [facility] of positive ab screen and delay of compatible blood 04/30/18 11:40 Erika Rodgers TEST NAME RESULT UNITS RANGES ABN FL STABORH Capture B POS FAntibody 3 Cell Scrn Captu POS F Normal [facility] Vital Signs Date Time Vital Sign Value Performing Clinician Facility 08-26-2024 17:00-0400 Heart rate 81 /min Sofie Durbin MD Work Phone: [facility] 08-26-2024 17:00-0400 Respiratory rate 19 /min Sofie Durbin MD Work Phone: [facility] 08-26-2024 17:00-0400 SaO2% (BldA) [Mass fraction] 96 % Sofie Durbin MD Work Phone: [facility] 08-26-2024 16:59-0400 Diastolic blood pressure 77 mm[Hg] Sofie Durbin MD Work Phone: [facility] 08-26-2024 16:59-0400 Systolic blood pressure 163 mm[Hg] Sofie Durbin MD Work Phone: [facility] 08-26-2024 16:08-0400 Body temperature 97.7 [degF] Sofie Durbin MD Work Phone: [facility] 08-26-2024 12:25-0400 Body height 177.8 cm Sofie Durbin MD Work Phone: [facility] 08-26-2024 12:25-0400 Body mass index (BMI) [Ratio] 47.35 kg/m2 Sofie Durbin MD Work Phone: [facility] 08-26-2024 12:25-0400 Body weight 149.68 kg Sofie Durbin MD Work Phone: [facility] 07-30-2024 09:30-0400 Body temperature 97.7 [degF] Sofie Durbin MD Work Phone: [facility] 07-30-2024 09:30-0400 Diastolic blood pressure 60 mm[Hg] Sofie Durbin MD Work Phone: [facility] 07-30-2024 09:30-0400 Heart rate 80 /min Sofie Durbin MD Work Phone: [facility] 07-30-2024 09:30-0400 Respiratory rate 18 /min Sofie Durbin MD Work Phone: [facility] 07-30-2024 09:30-0400 SaO2% (BldA) [Mass fraction] 92 % Sofie Durbin MD Work Phone: [facility] 07-30-2024 09:30-0400 Systolic blood pressure 126 mm[Hg] Sofie Durbin MD Work Phone: [facility] 07-29-2024 22:04-0400 Body height 177.8 cm Sofie Durbin MD Work Phone: [facility] 07-29-2024 22:04-0400 Body mass index (BMI) [Ratio] 47.35 kg/m2 Sofie Durbin MD Work Phone: [facility] 07-29-2024 22:04-0400 Body weight 149.68 kg Sofie Durbin MD Work Phone: [facility] Comment on above: ACTUAL BED WEIGHT 05-24-2024 09:54-0500 Diastolic blood pressure 88 mm[Hg] Alex PANG [facility] 05-24-2024 09:54-0500 Heart rate 80 /min Alex PANG [facility] 05-24-2024 09:54-0500 Respiratory rate 16 /min Alex PANG [facility] 05-24-2024 09:54-0500 Systolic blood pressure 152 mm[Hg] Alex PANG [facility] 02-11-2023 14:18-0400 Blood Pressure Location Bill NILL [facility] [place] 02-11-2023 14:18-0400 Diastolic blood pressure 104 mm[Hg] Bill NILL [facility] [place] 02-11-2023 14:18-0400 Heart rate 80 /min Bill NILL [facility] [place] 02-11-2023 14:18-0400 Respiratory rate 16 /min Bill NILL [facility] [place] 02-11-2023 14:18-0400 Systolic blood pressure 140 mm[Hg] Bill NILL [facility] [place] 01-12-2021 13:17-0400 Body temperature 96.1 [degF] Referring [...] Date Encounter Type Care Provider Facility Start: 09-20-2024 ambulatory BO zhao [facility] Start: 08-27-2024 End: 08-27-2024 ambulatory Alex PANG Facility:[facility] Start: 08-26-2024 End: 08-26-2024 ambulatory [facility] Start: 08-26-2024 End: 08-26-2024 Subsequent hospital visit by physician Sofie Durbin [place] [facility] [place] on above: Right kidney stone ( Primary Dx) Start: 08-22-2024 End: 08-22-2024 ambulatory Manuel Conklin [facility] Work Phone: Start: 08-22-2024 End: 08-22-2024 Departed Referred Manuel Conklin DO Work Phone: [facility] Start: 07-29-2024 End: 07-30-2024 Subsequent hospital visit by [place] [facility] [place] above: Calculus of kidney Kidney stone (Primar y Dx); Calculus of kidney; Right kidney stone Start: 07-29-2024 End: 07-30-2024 [facility] [facility] Start: 07-19-2024 End: 07-19-2024 ambulatory [facility] Start: 07-19-2024 End: 07-19-2024 ambulatory [facility] Start: 07-19-2024 End: 07-19-2024 Encounter for other preprocedural examination [facility] Start: 05-24-2024 End: 05-24-2024 ambulatory Alex PANG Facility: [facility] Start: 05-24-2024 End: 05-24-2024 Patient encounter procedure Alex PANG [facility] Start: 03-30-2024 End: 03-30-2024 ambulatory TIM KAPLAN [facility] Start: 03-30-2024 End: 03-30-2024 Lab Drop off JAIME KAPLAN [facility] Start: 03-30-2024 End: 03-30-2024 ambulatory TIM KAPLAN Facility:[facility] Start: 03-30-2024 End: 03-30-2024 Patient encounter procedure JAIME KAPLAN [facility] Start: 03-05-2024 ambulatory Alex PANG Facility:[facility] Start: 04-22-2023 End: 04-22-2023 Patient encounter procedure Bill R NILL [facility] [place] Start: 02-11-2023 End: 02-11-2023 Patient encounter procedure Bill R NILL [facility] Nill/[facility] [place] Start: 09-13-2022 End: 09-13-[address] DORON ZUÑIGA . [facility] Other Start: 09-13-2022 Patient encounter procedure Halie Sam [facility] Start: 08-16-2022 Encounter for genera l adult medical examination without abnormal findings DR DORON ZUÑIGA . [facility] Start: 08-10-2022 End: 08-11-[address] DORON ZUÑIGA . Facility: Start: 08-10-2022 End: 08-11-2022 Encounter for general adult medical examination without abnormal findings DR DORON ZUÑIGA . Facility:[facility] Start: 01-12-2021 Office outpatient vi sit 40 minutes Referring Provider Unknown [facility] Work Phone: Start: 11-22-2020 Office consultation new/estab patient 80 min Referring Provider Unknown [facility] Work Phone: Start: 05-07-2018 End: 05-07-2018 Emergency department patient visit [facility] Start: 05-07-2018 Encounter for genera l adult medical examination without abnormal findings [facility] Start: 04-30-2018 End: 05-03-2018 Patient encounter procedure [facility] Start: 04-30-2018 End: 05-02-2018 Evaluation and management of inpatient [facility] Patient encounter status Referri ng Provider Unknown [facility] Work Phone: Procedures Date Procedure Procedure Detail Performing Clinician Start: 08-26-2024 XR tomography Unspec ified body region Sofie Durbin MD Work Phone: Start: 08-26-2024 Glucose quantitative blood xcpt reagent strip Sofie Durbin MD Work Phone: Start: 08-26-2024 PULSE OXIMETRY, CONTINUOUS Dusty C Dacia DO Work Phone: Start: 08-26-2024 Glucose quantitative blood xcpt reagent strip Sofie Durbin MD Work Phone: Start: 07-30-2024 Basic metabolic pane l calcium [...] Performed By: #### P SASC, VITAD #### [facility] [address] [address] [address] Frank Nugent Start: 07-19-2020 Basic metabolic [...] hernia Bill NILL Repair of meniscus Bill N ILL Repair of right ingu inal hernia Bill NILL Repair of shoulder Referring Provider Unknown Spinal arthrodesis Referring Provider Unknown Plan of Treatment Date Care Activity Detail Author Start: 04-09-2033 Screening for malign ant neoplasm of colon [facility] Start: 08-26-2025 Diabetes mellitus screening Diabetes Screening [facility] Start: 07-29-2025 Diabetes mellitus screening Diabetes Screening [facility] Start: 01-10-2025 Influenza vaccination Influenz a Vaccine (Season Ended) [facility] Start: 08-22-2024 Urine culture [facility] Start: 08-22-2024 Bacteria identified in Urine by Culture Urine Culture [facility] Start: 01-11-2024 COVID-19 Vaccine ( season) COVID-19 Vaccine ( season) [facility] Start: 01-11-2024 Influenza vaccination Influenza Vacc ine (#1) [facility] Start: 2022 Pneumococcal vaccination Pneumococcal Vaccine (1 of 1 - PCV) [facility] Start: 2022 Zoster Vaccines (1 o f 2) Zoster Vaccines (1 of 2) [facility] Start: 01-12-2021 FUV, Provider: Carter Dangelo, Status: Pen, Time: 1:30 PM FUV, Provider: Carter Dangelo, Status: Pen, Time: 1:30 PM [facility] Work Phone: Start: 01-12-2021 PST, Provider: JAZZMINE CASTLE 6TH FLR PFT [facility]ALKWAY,PULM, Status: Pen, Time: 1:15 PM PST, Provider: [facility],PULM, Status: Pen, Time: 1:15 PM [facility] Work Phone: Start: 01-12-2021 PFT, Provider: JAZZMINE CASTLE 6TH FLR PFT RM1,PULM, Status: Pen, Time: 11:30 AM PFT, [facility] RM[facility],PULM, Status: Pen, Time: 11:30 AM [facility] Work Phone: Start: 12-15-2020 ECHO, Provider: KARISHMA HHVI,MG CARD, Status: Pen, Time: 2:00 PM ECHO, Provider: KARISHMA HHVI,MG CARD, Status: Pen, Time: 2:00 PM [facility] Work Phone: Start: 1994 DTaP/Tdap/Td Vaccine s (1 - Tdap) DTaP/Tdap/Td Vaccines (1 - Tdap) [facility] Start: 10-05-1991 Hepatitis A Vaccines (1 of 2 - Risk 2-dose series) Hepatitis A Vaccines (1 of 2 - Risk 2-dose series) [facility] Start: 10-05-1991 Hepatitis B Vaccines (1 of 3 - 19+ 3-dose series) Hepatitis B Vaccines (1 of 3 - 19+ 3-dose series) [facility] Start: 1990 Hepatitis C screening Hepatitis C [facility] Start: 1973 MMR Vaccines (1 of 1 - Standard series) MMR Vaccines (1 of 1 - Standard series) [facility] Start: 1972 Lipid panel Lipid Panel [facility] Start: 1972 Screening for malign ant neoplasm of colon [facility] Start: 1972 Yearly Adult Physical Yearly Adult P hysical [facility] Calculi (Stone) Analysis [facility] Service Area Work Phone: Comment on above: Release Upon Orderin g for 1 Occurrences starting 07/29/2024 End: 07-29-2024 Guidance for dilation of existing nephrostomy tract and placement of nephrostomy tube at new site of Kidney [facility] Service Area Work Phone: Comment on above: Once for 1 Occurrenc es starting 07/29/2024 until 07/29/2024 End: 07-29-2024 Incentive spirometry Instruct Incentive spirometry Instruct Respiratory Care Routine Once for 1 Occurrences starting 07/29/2024 until 07/29/2024 [facility] Work Phone: Comment on above: Once for 1 Occurrenc es starting 07/29/2024 until 07/29/2024 End: 07-29-2024 Noninvasive Ventilation Patient to use: At night; Mode: CPAP; Ventilation type: CPAP; PEEP/CPAP (cm H2O): 10 Noninvasive Ventilation Patient to use: At night; Mode: CPAP; Ventilation type: CPAP; PEEP/CPAP (cm H2O): 10 Respiratory Care Routine Continuous until discontinued starting 07/29/2024 [facility] Service Area Work Phone: Comment on above: Continuous until dis continued starting 07/29/2024 End: 07-29-2024 Guidance for fluid aspiration of Unspecified body region [facility] Service Area Work Phone: Comment on above: Once for 1 Occurrenc es starting 07/29/2024 until 07/29/2024 Immunizations Immunization Date Immunization Notes Care Provider Fa cility 09-18-2020 Pfizer-BioNTech COVI D-19 Vacc 30 MCG/0.3ML Intramuscular Suspension Referring Provider Unknown [facility] [place] 08-28-2020 Pfizer-BioNTech COVI D-19 Vacc 30 MCG/0.3ML Intramuscular Suspension Referring Provider Unknown [facility] [place] Payers Date Payer Category Payer Self-pay 2022 Managed Care (Private) [facility] [employer] [id number] 2017 Unknown [id number] 1972 Unknown [id number] [id number]. 2.182 1972 Unknown [id number] 2.16.840.1.134721.3.579. 2.182 1972 Unknown [id number] 2.16.840.1.716325.3.579. 2.182 1972 Unknown [id number] 2.16.840.1.245436.3.579. 2.593 1972 Unknown [id number] 2.16.840.1.908723.3.579. 2.593 1972 Unknown [id number] 2.16.840.1.860676.3.579. 2.727 1972 Unknown [id number] 2.16.840.1.350816.3.579. 2.727 1972 Unknown [id number] 2.16.840.1.832985.3.579. 2.727 1972 Unknown [id number] 2.16.840.1.392041.3.579. 2.727 1972 Unknown [id number] 2.16.840.1.628067.3.579. 2.124 1972 Unknown [id number] 2.16.840.1.485024.3.579. 2.1242 1972 Unknown [id number] 2.16.840.1.857916.3.579. 2.1242 1972 Unknown [id number] 2.16.840.1.936342.3.579. 2.124 1972 Unknown [id number] 2.16.840.1.550756.3.579. 2.1243 1959 Unknown [id number] Unknown Unknown Shima BC/BS [id number] Unknown [id number] .[id number]. 2.531 Social History Date Type Detail Facility Start: 07-29-2024 End: 07-30-2024 Never a smoker Never a smoker [facility] Start: 07-29-2024 End: 07-30-2024 Sex Assigned At [facility] Start: 02-11-2023 End: 07-19-2024 Tobacco smoking status Never smoked tobacco (finding) [facility] [place] Tobacco smoking status Never [facility] Start: 07-19-2024 Tobacco use and exposure Smokeless tobacco non-user [facility] Work Phone: Start: 07-29-2024 Alcoholic beverage intake Current drinker of alcohol (finding) [facility] Work Phone: Has the [employer], gas, oil, or water [employer] threatened to shut off services in your home in past 12Mo No [facility] Work Phone: Are you now , , , , never or living with a partner? [facility] Work Phone: How often to you hav e a drink containing alcohol? Monthly or less [facility] Work Phone: How many standard drinks containing alcohol do you have on a typical day? 1 or 2 [facility] Work Phone: How often do you hav e 6 or more drinks on 1 occasion? Never [facility] Work Phone: Do you feel stress - tense, restless, nervous, or anxious, or unable to sleep at night because your mind is troubled all the time - these days [OSQ] Not at all [facility] Work Phone: (I/We) worried whether (my/our) food would run out before (I/we) got money to buy more. Never true [facility] Work Phone: Start: 07-19-2024 Alcohol Comment 4-5 drinks/year [facility] Work Phone: Start: 1972 Sex assigned at Not on file [facility] Work Phone: Start: 07-29-2024 Sexual orientation Heterosexual (fin ding) [facility] Start: 07-19-2024 End: 08-26-2024 Exposure to SARS-CoV-2 (event) Not sure [facility] Start: 08-24-2024 Sex Male (finding) [facility] Start: 1970 Sex Assigned At Male F [facility] Start: 08-26-2024 Gender identity Identifies as male gender (finding) [facility] Work Phone: NEGATED: Highlighted row - - [facility] Work Phone: Medical Equipment Procedure Code Equipment Code Equipment Origin al Text Equipment Identifier Dates Stent, Ureteral Contour, 6fr X 28cm - [id number] Start: 07-29-2024 Stent, Ureteral Percuflex 6 X 28 - [id number] Start: 07-29-2024 Stent, Ureteral Contour, 6fr X 26cm - [id number] Start: 08-26-2024 Functional Status Date Assessment Result Facility 08-26-2024 [place] - suicide severity rating scale screener - recent [C-SSRS] [facility] Work Phone: 05-24-2024 Functional Status N/A [facility] 03-30-2024 Functional Status N/A [facility] [place] 02-11-2023 Functional Status N/A [facility] NEGATED: Highlighted row Functional performance Functional status health issues are not documented Disease [facility] Work Phone: Mental Status Date Assessment Result Facility NEGATED: Highlighted row Cognitive function [Interpretation] Cognitive status health issues are not documented Disease -[facility] Work Phone: Clinical Notes 11-22-2020 to 09-20-2024 Discharge InstructionsSofie Durbin MD - 08/26/2024 1:42 PM Yojana Durbin MD - 08/26/2024 1:42 PM Volodymyr Downing RN - 07/30/2024 10:24 AM Yojana Durbin MD - 07/30/2024 9:16 AM EDT Note Date & Type Note Facility 09-20-2024 Note [facility] Subjective Jerry Wilson is a 53 y.o. year old male patient being seen for positive stress test. Patient states he was in the hospital with sepsis and it damage his heart. Patient denies palpitations, dizziness, Patient complains of SOB, bilateral front of his thigh numbness, chest pain, dull pain comes and goes quickly, with and without activity. Patient Active Problem List Diagnosis Abnormal abdominal CT scan BMI 50.0-59.9, adult (CMS/HCC) BPH with obstruction/lower urinary tract symptoms Diabetes (CMS/HCC) ED (erectile dysfunction) Frequent UTI Gross hematuria Hepatic steatosis Hepatomegaly History of nephrolithiasis HTN (hypertension) Hypercholesteremia Hyperplastic rectal polyp Interstitial lung disease (CMS/HCC) LLQ abdominal pain Mediastinal lymphadenopathy Morbid obesity (CMS/HCC) Obstructive sleep apnea syndrome Prostate cancer screening Rectal bleeding Right flank pain Right kidney stone Sarcoidosis Sigmoid diverticulosis Status post lumbar spinal fusion Vitamin D deficiency Primary osteoarthritis of right knee Family History Problem Relation Name Age of Onset Heart disease Maternal Grandfather Diabetes Paternal Grandmother Social History Tobacco Use Smoking status: Never Smokeless tobacco: Never Substance Use Topics Drug use: Never HPI Jerry is seen in follow-up. This is the first time I am meeting him. He is a 53-year-old man who recently was admitted to the [facility] in August 2024 with fever tachycardia, uncontrolled hypertension and then hypotension. He also had acute kidney injury with significantly elevated creatinine up from normal values previous to that. Of note he had pyelonephritis and prior instrumentation with ureteral stent resulting in sepsis. Additional medical history includes uncontrolled diabetes, Hyperlipidemia and hypertension. During that admission he did have elevation of BNP (~4000) and hs-troponin (peak 811) consistent with NSTEMI type II. During that admission he was seen by Dr. Mishel Mcgee in cardiology consultation. Following that admission he underwent a stress test that showed evidence of inferolateral ischemia. He says that has history of pulmonary sarcoidosis, granulomas in the lungs and was seeing F for that. today he reports that he has shortness of breath on exertion NYHA class II-III symptoms, he has to stop to catch his breath. He also has left-sided chest discomfort that is localized without radiation. This can happen at any time. He denies palpitations, dizziness or lightheadedness and leg edema. Review of Systems Cardiovascular: Positive for chest pain (discomfort) and dyspnea on exertion. Negative for irregular heartbeat, leg swelling, orthopnea, palpitations and syncope. Respiratory: Negative for cough and shortness of breath. Musculoskeletal: Negative for arthritis, falls and neck pain. Gastrointestinal: Negative for diarrhea and dysphagia. Neurological: Negative for light-headedness and loss of balance. Objective Visit Vitals BP 132/88 (BP Location: Left arm, Patient Position: Sitting) Pulse 93 Ht 1.803 m (5' 11 ) Wt (!) 158 kg (349 lb) SpO2 97% BMI 48.68 kg/m??? Smoking Status Never BSA 2.81 m??? Physical Exam Constitutional: Appearance: He is well-developed. He is obese. He is not ill-appearing. HENT: Head: Normocephalic and atraumatic. Nose: Nose normal. Eyes: General: No scleral icterus. Pupils: Pupils are equal, round, and reactive to light. Neck: Thyroid: No thyromegaly. Vascular: No JVD. Cardiovascular: Rate and Rhythm: Normal rate and regular rhythm. Pulses: Radial pulses are 2+ on the right side and 2+ on the left side. Heart sounds: Normal heart sounds. No murmur heard. No friction rub. No gallop. Pulmonary: Effort: Pulmonary effort is normal. No respiratory distress. Breath sounds: Normal breath sounds. No wheezing or rales. Chest: Chest wall: No tenderness. Abdominal: General: Bowel sounds are normal. There is no distension. Palpations: Abdomen is soft. Tenderness: There is no abdominal tenderness. Musculoskeletal: General: No swelling. Cervical back: Neck supple. Skin: General: Skin is warm and dry. Neurological: General: No focal deficit present. Mental Status: He is alert and oriented to person, place, and time. Psychiatric: Mood and Affect: Mood normal. Behavior: Behavior is cooperative. Judgment: Judgment normal. Allergies No Known Allergies Medications Current Outpatient Medications: aspirin 81 mg EC tablet, Take 81 mg by mouth in the morning., Disp: , Rfl: fenofibrate (Lofibra) 160 mg tablet, Take 160 mg by mouth in the morning., Disp: , Rfl: gabapentin (Neurontin) 600 mg tablet, Take 600 mg by mouth in the morning., Disp: , Rfl: irbesartan (Avapro) 150 mg tablet, Take 150 mg by mouth in the morning., Disp: , Rfl: metFORM (more content not included)... [facility] 08-26-2024 Hospital Discharge instructions Sofie Durbin MD - 08/26/2024 3:12 PM EDT Please call your physician or go to the emergency department if any of the following occur: Fever, unrelieved pain, intractable vomiting, inability to urinate Please follow-up in 1 week for stent removal with Dr. Sofie Durbin. Call for appointment. Patient may not drive while on narcotic pain medications. Patient may shower. Patient may resume a regular diet. documented in this encounter [facility] Work Phone: 08-26-2024 Attending History and physical note Patient was admitted to [facility] on Friday. He was found to have Enterococcus faecalis bacteremia. He was treated with Levaquin and Zosyn and then discharged home on Augmentin. 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 Source Note - Mar Downing RN - 07/30/2024 10:24 AM EDT 07/30/24 1024 Discharge Planning Living Arrangements Spouse/significant [...] were you homeless or living in a care home (including now)? N Transportation Needs In the [...] spouse. PCP is Dr Zuñiga. He uses [facility] in [place] for prescriptions. Patient feels he effectively manages his health at home and plans to return home when medically ready. [facility] Work Phone: 08-26-2024 History and physical note Patient was admitted to [facility] on Friday. He was found to have Enterococcus faecalis bacteremia. He was treated with Levaquin and Zosyn and then discharged home on Augmentin. 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 Source Note - Mar Downing RN - 07/30/2024 10:24 AM EDT 07/30/24 1024 Discharge Planning Living Arrangements Spouse/significant [...] were you homeless or living in a care home (including now)? N Transportation Needs In the [...] spouse. PCP is Dr Zuñiga. He uses [facility] in [place] for prescriptions. Patient feels he effectively manages his health at home and plans to return home when medically ready. documented in this encounter [facility] Work Phone: 07-30-2024 History of Present illness Narrative 07/30/24 [...] were you homeless or living in a care home (including now)? N Transportation Needs In the [...] spouse. PCP is Dr Zuñiga. He uses [facility] in [place] for prescriptions. Patient feels he effectively manages his health at home and plans to return home when medically ready. documented in this encounter [facility] Work Phone: 07-30-2024 Hospital course Narrative Discharge [...] Sofie Durbin MD documented in this encounter [facility] Work Phone: 07-30-2024 Hospital Discharge instructions Sofie [...] for 2 weeks. documented in this encounter [facility] Work Phone: 07-30-2024 Nurse Note Pt. Slept [...] on day shift to reach out to ashok. Pass it to Jaimee to check with Dr. Durbin remove if its ok to removed the verdin. Used c pap at hs.I instructed to use incentive spirometry this shift and pt. Did well volume up to 1500ml. [facility] Work Phone: 07-30-2024 Nurse Note Pt. Slept [...] on day shift to reach out to ashok. Pass it to Jaimee to check with Dr. Durbin remove if its ok to removed the verdin. Used c pap at hs.I instructed to use incentive spirometry this shift and pt. Did well volume up to 1500ml. documented in this encounter [facility] Work Phone: 07-30-2024 Plan of care note [...] saturation per order/standard this shift Outcome: Progressing T [facility] Work Phone: 07-30-2024 Miscellaneous Notes The patient's [...] the time being until verified with Urology AIRCRAFT COMMUNICATOR/PA or Dr. Durbin in the morning. Operative Note Location: [place], [place] Date: 07/29/2024 Jerry Wilson [id number] Surgeon: Sofie Durbin MD Marketing Services Rep: None Pre-operative diagnosis: Right nephrolithiasis, calyceal diverticulum [...] to dilating the tract up to 30 [place] I decided to begin with a mini [...] 07/29/2024 6:50 PM documented in this encounter [facility] Work Phone: 07-30-2024 Plan of care note Was notified by RN that patient's urine remains ovalle red/pink in color this morning, there is an order to remove Verdin at 0600, but due to continued hematuria will have to confirm with urology in the morning if verdin should be removed. Verdin to remain in place for the time being until verified with Urology AIRCRAFT COMMUNICATOR/PA or Dr. Durbin in the morning. [facility] Work Phone: 07-29-2024 Surgery Surgical operation note Operative Note Location: [place], [place] Date: 07/29/2024 Jerry Wilson [id number] Surgeon: Sofie Durbin MD Marketing Services Rep: None Pre-operative diagnosis: Right nephrolithiasis, calyceal diverticulum [...] to dilating the tract up to 30 [place] I decided to begin with a mini [...] Sofie Durbin MD, MD 07/29/2024 6:50 PM [facility] Work Phone: 07-29-2024 Attending History and physical [...] to upper pole. Source Note - Natalia To, HANDBAG PARTS CUTTER-MICROFILM DUPLICATING UNIT SUPERVISOR - 07/19/2024 9:45 AM EDT Images from [...] Flowsheet Row [place] [facility] of yourself (eat, [...] Flowsheet Row [place] [facility] (IF A SCORE IS NOT CALCULATING, MUST SELECT A BMI TO COMPLETE) 6 filed at 07/19/2024 1007 Surgical Factors Major surgery planned, including arthroscopic and laproscopic (1-2 hours) filed at 07/19/2024 1007 BMI (BMI MUST BE CHOSEN) Greater than 50 (Venous stasis syndrome) filed at 07/19/2024 1007 Modified Frailty Index Flowsheet Row [facility]-[place] [facility] Non-independent functional status (problems with dressing, bathing, personal grooming, or cooking) 0 filed at 07/19/2024 1009 History of diabetes mellitus 0.0909 filed at 07/19/2024 1009 History of COPD 0 filed at 07/19/2024 1009 History of CHF No filed at 07/19/2024 1009 History of PA 0 filed at 07/19/2024 1009 History of [...] Index Calculator .[id number] filed at 07/19/2024 1009 [id number] Stroke Risk Points Current as of just now N/A 0 to 9 Points: Last Change: N/A The [id number] risk score (Lip WALLY, et al. 2009. 2010 [employer]) quantifies the risk of stroke for a patient with atrial fibrillation. For patients without atrial fibrillation or under the age of 18 this score appears as N/A. Higher score values generally indicate higher risk of stroke. This score is not applicable to this patient. Components are not calculated. Revised Cardiac Risk Index Flowsheet Row [facility]-[place] [facility] Surgery (Intraperitoneal, Intrathoracic,Suprainguinal vascular) 0 filed at 07/19/2024 1007 History of ischemic heart disease (History of PA, History of positive exercuse test, Current chest [...] Flowsheet Row [facility]-[place] [facility] [place] [facility] [place] status 1 filed at 07/19/2024 1008 [...] working well, or seeing a kidney doctor (mine safety director)? If yes, was this for kidney stones [...] Flowsheet Row Pre-Ad[place] [facility] [place] you snore loudly? 0 filed at [...] Flowsheet Row Pre-Ad[place] Testing [place] [facility] [place] Calculated Score 3 filed at 07/19/2024 [...] Flowsheet Row Pre-Ad[place] Testing [place] [facility] [place] Calculated Age Score 1.02 filed at 07/19/20241008 [...] surgery *See risk scores as previously documented [facility] Work Phone: 07-29-2024 History and physical note [...] Flowsheet Row Pre-Ad[place] Testing [place] [facility] [place] Can you take care of yourself (eat, [...] Flowsheet Row Pre-Ad[place] Testing [place] [facility] [place] Score (IF A SCORE IS NOT CALCULATING, MUST SELECT A BMI TO COMPLETE) 6 filed at 07/19/2024 1007 Surgical Factors Major surgery planned, including arthroscopic and laproscopic (1-2 hours) filed at 07/19/2024 1007 BMI (BMI MUST BE CHOSEN) Greater than 50 (Venous stasis syndrome) filed at 07/19/2024 1007 Modified Frailty Index Flowsheet Row Pre-Ad[place] [facility] [place] Non-independent functional status (problems with dressing, bathing, personal grooming, or cooking) 0 filed at 07/19/2024 1009 History of diabetes mellitus 0.0909 filed at 07/19/2024 1009 History of COPD 0 filed at 07/19/2024 1009 History of CHF No filed at 07/19/2024 1009 History of PA 0 filed at 07/19/2024 1009 History of [...] Index Calculator .1818 filed at 07/19/2024 1009 [id number] Stroke Risk Points Current as of just now N/A 0 to 9 Points: Last Change: N/A The [id number] risk score (Lip WALLY, et al. 2009. 2010 [employer]) quantifies the risk of stroke for a patient with atrial fibrillation. For patients without atrial fibrillation or under the age of 18 this score appears as N/A. Higher score values generally indicate higher risk of stroke. This score is not applicable to this patient. Components are not calculated. Revised Cardiac Risk Index Flowsheet Row Pre-Ad[place] Testing [place] [facility] [place]-Risk Surgery (Intraperitoneal, Intrathoracic,Suprainguinal vascular) 0 filed at 07/19/2024 1007 History of ischemic heart disease (History of PA, History of positive exercuse test, Current chest [...] Flowsheet Row Pre-Ad[place] Testing [place] [facility] [place]oking status 1 filed at 07/19/2024 1008 [...] working well, or seeing a kidney doctor (mine safety director)? If yes, was this for kidney stones [...] Flowsheet Row Pre-Ad[place] Testing [place] [facility] [place] you snore loudly? 0 filed at [...] Flowsheet Row Pre-Ad[place] Testing [place] [facility] [place] Calculated Score 3 filed at 07/19/2024 100 Preoperative SpO2 0 filed at 07/19/2024 100 Respiratory infection in the last month Either upper or lower (i.e., URI, bronchitis, pneumonia), with fever and antibiotic treatment 0 filed at 07/19/20241008 Preoperative anemia (Hgb less than 10 g/dl) 0 filed at 07/19/20241008 Surgical incision 0 filed at 07/19/20241008 Duration of surgery 16 filed at 07/19/2024 100 Shukri Perioperative Risk for Myocardial Infarction or Cardiac Arrest (NANCY) Flowsheet Row Pre-Admission Testing [place] [facility] [place] Cal[place] Age Score 1.02 filed at 07/19/20241008 Functional Status 0 filed at 07/19/20241008 ASA Class -3.29 filed at 07/19/20241008 Creatinine 0 filed at 07/19/20241008 Type of Procedure -0.26 filed at 07/19/20241008 NANCY Total Score -7.78 filed at 07/19/2024 100 NANCY % 0.04 filed at 07/19/2024 100 Assessment and Plan: Assessment and Plan: Preop: [...] as previously documented documented in this encounter [facility] Work Phone: 07-29-2024 Evaluation note Interventional Radiology [...] been discussed with the patient and/or their security representative. All questions answered and they agree to proceed. [facility] Work Phone: 07-29-2024 Miscellaneous Notes Interventional Radiology Brief Postprocedure Note Attending: Radhames Romero MD Marketing Services Rep: none Diagnosis: 1. Calculus of kidney IR [...] been discussed with the patient and/or their security representative. All questions answered and they agree to proceed. documented in this encounter [facility] Work Phone: 07-29-2024 Surgery Postoperative evaluation and management note Interventional Radiology Brief Postprocedure Note Attending: Radhames Romero MD Marketing Services Rep: none Diagnosis: 1. Calculus of kidney IR [...] or complication and is in stable condition. [facility] Work Phone: 05-24-2024 Hospital Discharge instructions Patient [...] including vitamins, herbs, eye drops, creams, and nnpd-xld-sjblvxk medicines. Any problems you or family members [...] unless your provider tells you to. ?Taking onrn-zsb-kyktfle medicines, vitamins, herbs, and supplements. Tests You [...] provider. Document Revised: 12/27/2022 Document Reviewed: 12/27/2022 [employer] Patient Education 2023 [employer]. 05/24/2024 10:25:38 Percutaneous Nephrolithotomy Percutaneous Nephrolithotomy Percutaneous [...] including vitamins, herbs, eye drops, creams, and kmxl-dsw-outmskz medicines. Any problems you or family members [...] unless your provider tells you to. Taking seec-unm-hmskmqh medicines, vitamins, herbs, and supplements. Tests You [...] provider. Document Revised: 12/26/2022 Document Reviewed: 12/26/2022 [employer] Patient Education 2023 [employer]. Follow Up Care 03/30/2024 10:32:55 With:POLY ISIDRO, Alex Cohen, URL Address: [facility] [address] [place], [place] [id number]- When: Unknown [facility] [place] 05-24-2024 Note Patient Education Nephrology Laser Therapy [...] including vitamins, herbs, eye drops, creams, and flnh-jus-ccxyejp medicines. ??? Any problems you or family [...] your provider tells you to. ? Taking xqcb-qoy-zdxwhcz medicines, vitamins, herbs, and supplements. Tests ??? [...] This helps yo (more content not included)... [facility] 03-30-2024 Hospital Discharge instructions Patient Education 03/30/2024 16:23:00 Kidney Stones, Dpwa-ms-Gprm Kidney Stones Kidney stones are rock-like masses [...] Follow these instructions at home: Medicines Take mwsf-cng-eqtodyg and prescription medicines only as told by [...] provider. Document Revised: 12/20/2022 Document Reviewed: 12/20/2022 [employer] Patient Education 2023 [employer]. Follow Up Care 03/16/2024 13:13:27 With:POLY ISIDRO, Alex Cohen, URL Address: [facility] [employer] [place] [id number]- When:Within 6 Week(s) [facility] 03-30-2024 Note Urology Office/Clini c Note [...] next ov. Ordered: HgbA1c Lab Specimen Collect [id number] PSA Total Urnls Dip Stick Auto w/o Microscopy POC [id number] 4. Kidney stone (N20.0: Calculus of kidney) KUB done 01/23/23 showing Rt. nephrolithiasis with 1.1 cm stone projected over the pelvis, cannot r/o UPJ stone. CT done 01/29/23 - no hydro, +R stones (no details on size/location). -update imaging w/ KUB+KEVYN. Return to discuss possible stone tx dayana ISIDRO. Ordered: [id number] Measure Post Void residual urine and/or bladder capacity by US- non-imaging HgbA1c Lab Specimen Collect [id number] PSA Total US Renal XR Abdomen 1 View 5. Diabetes (E11.9: Type 2 diabetes mellitus without complications) A1C 7.5 done 08/10/22 Not sure of his DM meds. Discussed DM effect on LUTS. -A1c drawn IO today. Ordered: HgbA1c Lab Specimen Collect [id number] PSA Total 6. ED (erectile dysfunction) (N52.9: [...] day(s), # 60 cap(s), Refills(s) 11, Pharmacy: [facility][id number], 180, cm, 03/30/24 9:46:00 EST, Height/Length Dosing, 149.8, kg, 03/30/24 9:46:00 EST, Weight Dosing Follow-up With When Contact Information POLY ISIDRO, Alex Cohen, URL In [address] [facility] [place] [address]- Additional Instructions: Patient Education Kidney Stones, Itvr-oz-Evre Problem List/Past Medical History Ongoing Abnormal abdominal CT scan BMI 50.0-59.9, adult BPH with obstruction/lower urinary tract symptoms Diabetes ED (erectile dysfunction) Frequent UTI Hepatic steatosis Hepatomegaly History of nephrolithiasis HTN (hypertension) Hypercholesteremia Hyperplastic rectal polyp Interstitial lung disease LLQ abdominal pain Mediastinal lymphadenopathy Mediastinal lymphadenopathy Morbid obesity Obstructive sleep apnea syndrom (more content not included)... [facility] Comment on above: Result Comment: Elec tronically Signed By: JAIME KAPLAN PA-C\.samia\Date and Time Signed: 03/30/24 16:24 EST 03-30-2024 [...] these instructions at home: Medicines ??? Take guxd-knt-pwintvu and prescription medicines only as told by [...] provider. Document Revised: 12/20/2022 Document Reviewed: 12/20/2022 Purfresh Patient Education ? 2023 [employer]. [facility] 11-22-2020 History of Present illness Narrative Mr. Wilson is a 50 y.o man, never a smoker, being evaluated for dyspnea on exertion and sarcoidosis.PCP: Dr. Pereira: Dr. Jaimes (pulmonary in [place])HPI:11/22/2020: At baseline, he had no dyspnea on [...] He was started on prednisone by his fall intern in July. He initially felt slightly improved but shortly started worsening again. 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 Has known exposure to asbestos, silica or [...] body habitus. ?RV enlargement but preserved RV gajyxtex71/13/2020 -> NM stress test with No ischemia, normal wall motion, lower normal EF, left ventriculomegalyLabs:None on record [facility] Work Phone: 11-22-2020 History of Present illness Narrative Mr. Wilson is a 50 y.o man, never a smoker, being evaluated for dyspnea on exertion and sarcoidosis.PCP: Dr. Pereira: Dr. Jaimes (pulmonary in [place])HPI:11/22/2020: At baseline, he had no dyspnea on [...] He was started on prednisone by his fall intern in July. He initially felt slightly improved but shortly started worsening again. 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 Has known exposure to asbestos, silica or [...] body habitus. ?RV enlargement but preserved RV yatjgigv31/13/2020 -> NM stress test with No ischemia, normal wall motion, lower normal EF, left ventriculomegalyLabs:None on record [employer] Work Phone: 11-22-2020 History of Present illness Narrative Mr. Wilson is a 50 y.o man, never a smoker, being evaluated for dyspnea on exertion and sarcoidosis.PCP: Dr. Pereira: Dr. Jaimes (pulmonary in [place])HPI:11/22/2020: At baseline, he had no dyspnea on [...] He was started on prednisone by his fall intern in July. He initially felt slightly improved but shortly started worsening again. 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 Has known exposure to asbestos, silica or [...] body habitus. ?RV enlargement but preserved RV fewpdivp45/13/2020 -> NM stress test with No ischemia, normal wall motion, lower normal EF, left ventriculomegalyLabs:None on record [facility] Work Phone: 11-22-2020 History of Present illness Narrative Mr. Wilson is a 50 y.o man, never a smoker, being evaluated for dyspnea on exertion and sarcoidosis.PCP: Dr. Pereira: Dr. Jaimes (pulmonary in [place])HPI:11/22/2020: At baseline, he had no dyspnea on [...] He was started on prednisone by his fall intern in July. He initially felt slightly improved but shortly started worsening again. 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 Has known exposure to asbestos, silica or berylliumCTD evaluation: No hx of joint pain/swelling, skin rashes, Raynaud's, sicca syndrome, eye redness, muscle pain and weakness, difficulty swallowing.Family History:No family history of lung diseases or cancerImaging history: (I have personally reviewed the imaging below)12/15/2020 HRCT with hilar/mediastinal ADP but clear tnooyvlfna34/24/2021: CTPE with hilar/mediastinal ADP but clear parenchymaPFTs:01/12/2021 -> Ratio of 0.77/FEV1 3.67L (74%) (no BD response)/FVC 2.82L (72%)/TLC 76%/RVtoTLC ratio 0.42/DLCO 89%6 MWTs:01/12/2021->on RA, 191 m. Peak SpO2 of 95%. Gary SpO2 92%. (HR went up from 85 to 120 and BP from 150-202 systolic)Lung biopsy: None on recordEcho:12/15/2020 -> Normal EF, no diastolic dysfunction, with normal LA, RV size and kayyxfrp75/24/2020 -> difficult to interpret images, probably 2/2 body habitus. ?RV enlargement but preserved RV fozqynau87/13/2020 -> NM stress test with No ischemia, normal wall motion, lower normal EF, left ventriculomegalyLabs:CBC with lymphopenia (590)low 25 [place] vitamin D but high 1-25 [place] vitamin D, elevated 24hr urine calcium without hematuria [facility] Work Phone: Evaluation + Plan note No data available for this section General Surgery [place] Evaluation + Plan note Future Appointments Appointment Date:05/24/2024 09:30:00 AM Scheduled Provider:POLY ISIDRO, Alex Cohen Location:Pending sale to [facility] Appointment Type:URO Office Visit [facility] Evaluation + Plan note [facility] Evaluation note No Information [employer] [employer] Other Evaluation note Diagnosis Calculus of kidney documented in this encounter [facility] Work Phone: Evaluation note* Diagnosis Right kidney stone- Primary Kidney stone Calculus of kidney Calculus of kidney Right kidney stone Preop general physical exam- Primary Other specified pre-operative examination Kidney stone Calculus of kidney Preop examination Unspecified pre-operative examination documented in this encounter [facility] Work Phone: Evaluation noteNo assessment information available [facility] Work Phone: Evaluation note* Diagnosis Right kidney stone- Primary documented in this encounter [facility] Work Phone: History general Narrative - Reported* Type Description Date Medical History Hypertension Medical History hypercholesterolemia Medical History back pain Medical History rotator cuff tear Surgical History rotator cuff Surgical History back surgery X2 Hospitalization History see above [facility] Other Hospital Discharge instructions No data available for this section General Surgery [place] Progress note No data available for this section General Surgery [place] Reason for referral (narrative) Referred by: POLY ISIDRO, Alex Cohen [facility] Reason for visit Narrative* Auth/Cert (Routine) Specialty Diagnoses / Procedures Referred By Amber lemus Referred To Contact Diagnoses Calculus of kidney Calculus of kidney [N20.0] Procedures [place] PERQ NL/PL LITHOTRP SIMPLE UP TO 2 CM 1 LOCATION OH PLMT NEPHROSTOMY CATH PRQ NEW ACCESS RS&I OH NJX PX ANTEGRDE NFROSGRM &/URTRGRM NEW ACCESS NEPHROLITHOTOMY, PERCUTANEOUS W/HOLMIUM LASER, NEPH TUBE PLACEMENT IN I.R. AT: 1000 AM NEPHROLITHOTOMY, PERCUTANEOUS W/HOLMIUM LASER, NEPH TUBE PLACEMENT IN I.R. AT: 1000 AM NEPHROLITHOTOMY, PERCUTANEOUS W/HOLMIUM LASER, NEPH TUBE PLACEMENT IN I.R. AT: 1000 [place] [address] [address] [address] Phone: tel: fax: [facility] [place] [id number] [place] [id number] fax: Referral ID Status Reason Start Date Expiration Date Visits Re quested Visits Authorized [id number] 1 1 [facility] Work Phone: Rewbhv for visit Narrative* Auth/Cert Specialty Diagnoses / Procedures Referred By Amber lemus Referred To Contact Diagnoses Calculus of kidney Calculus of kidney [N20.0] Procedures [place] CYSTO/URETERO W/LITHOTRIPSY &INDWELL STENT INSRT OH CYSTO W/URTROSCOPY W/TX INTRA-RENAL STRICTURE [place] CYSTO W/INSERT URETERAL STENT CYSTOSCOPY, WITH LASER LITHOTRIPSY CYSTOSCOPY, WITH LASER LITHOTRIPSY CYSTOSCOPY, WITH [place]TER[place] [address] [address] [address] Phone: tel: fax: [facility] [place] [address] [place] [phone] fax: Referral ID Status Reason Start Date Expiration Date Visits Re quested Visits Authorized [id number] 1 1 [facility] Work Phone: Summary Purpose Family History No [...] Patient condition does not warra nt discussion Advance Directive Response Recorded Date/ Time Advance Directives No April 11:10pm Chief Complaint Initial visit with provider to [...] section and content) DATE CREATED AUTHOR 05/08/2018 [facility] DATE CREATED AUTHOR AUTHOR'S ORGANIZ ATION 01/14/2021 [employer] DATE CREATED AUTHOR AUTHOR'S ORGANIZ ATION 09/19/2022 [facility] DATE CREATED AUTHOR AUTHOR'S ORGANIZ ATION 04/02/2024 [facility] DATE CREATED AUTHOR AUTHOR'S ORGANIZ ATION 07/03/2024 [facility] DATE CREATED AUTHOR AUTHOR'S ORGANIZ ATION 07/30/2024 [facility] DATE CREATED AUTHOR AUTHOR'S ORGANIZ ATION 08/26/2024 [facility] DATE CREATED AUTHOR AUTHOR'S ORGANIZ ATION 08/29/2024 [facility] DATE CREATED AUTHOR AUTHOR'S ORGANIZ ATION 08/29/2024 [facility] DATE CREATED AUTHOR AUTHOR'S ORGANIZ ATION 09/25/2024 [facility] REASON FOR VISIT (unrecogniz ed section and content) NAUSEAUS, HAVING PROBLEMS UR INATING, AND IT IS DARK Patient Care team informatio n (unrecognized section and content) Team Status: Inactive Member Role Status Dates Manuel Conklin DO Attending Provider Active Start : August 22, 2024 End: August 22, 2024 Raisin Separator Operator Relationship Specialty Start Date End Date Doron Zuñiga MD [address] [place] [address] PCP - General Family Medicine 08/03/24 Scheduled Active and Recently Administ ered Medications (unrecognized section and content) Medication Order 07/28/2024 07/29/2024 07/30/2024 acetaminophen (Tylenol) tablet 650 mg 650 mg, oral, Every 6 hours, First dose on Hillary 07/29/24 at 2200, Recovery & On Unit, If ordered PRN for pain, nurse is permitted to administer this medication for higher pain scores based on patient preference? Yes 2203 (Given - Provider: Ivy Silva RN) 0408 [...] (Anesthesia Volume Adjustment - Provider: Glendy Segura APRN-REPORT ANALYST) ceFAZolin (Ancef) 2 g in dextrose (iso) [...] that apply): Surgical Prophylaxis, Indications: Surgical Prophylaxis 2325 (New Bag - Provider: Ivy Silva RN)2356 [...] - Comment: PT. GOT IV LOPRESSOR AT 1915)0826 (Given - Provider: Jaimee Mi RN)2100 (Due) midazolam (Versed) injection 2 mg (COMPLETED) 2 mg, intravenous, Once, On Hillary 07/29/24 at 1430, For 1 dose, Preprocedure 1414 (Given - Provider: Cindy Garcia RN) oxygen (O2) therapy (CANCELED) inhalation, Continuous - , First dose on Fri07/29/24 at 1915, Recovery (only), Device: Simple Face Mask, Rate in Liters per minute: 10 LPM, Keep O2 Sat Above: 92% 2324 (Start - Provider: Ivy Silva RN) PARoxetine (Paxil) tablet 60 mg 60 mg, oral, Every morning, First dose on Fri07/30/24 at 0900, Recovery & On Unit 0826 (Given - Provid er: Jaimee Mi RN) simvastatin (Zocor) tablet 40 mg 40 mg, oral, Every evening, First dose on Fri07/29/24 at 2200, Recovery & On Unit 2205 (Given - Provider: Ivy Silva RN) 2100 (Due) tamsulosin (Flomax) 24 hr capsule 0.8 mg 0.8 mg, oral, Daily, First dose on Fri07/30/24 at 0900, Recovery & On Unit, Give 30 minutes after the same mealtime each day. Capsules should be swallowed whole; do not crush, chew, or open. 0826 (Given - Provid er: Jaimee Mi RN) PRN Medication Order 07/28/2024 07/29/2024 07/30/2024 bisacodyl (Dulcolax) EC tablet 10 mg 10 mg, oral, Daily PRN, constipation, first line, Starting on Fri07/29/24 at 2103, Phase II/On Unit, 1st line for treatment of constipation - contact provider if no bowel movement in past 48 hours. Do not crush, chew, or split. hydrALAZINE (Apresoline) injection 10 mg 10 mg, intravenous, Every 6 hours PRN, SBP GREATER than 170, Starting on Fri07/29/24 at 2103, Phase II/On Unit, Hold for HR 100 or GREATER). HYDROmorphone (Dilaudid) injection 0.5 mg (CANCELED) 0.5 mg, intravenous, Every 5 min PRN, pain moderate (4-6), first line, Starting on Fri07/29/24 at 1849, Recovery (only), Max total of [...] Recovery (only) 1914 (Given - Provider: Latoya Durham RN) ondansetron (Zofran) injection 4 mg (COMPLETED) 4 [...] via IV Push, administer over 3-5 minutes. Scheduled Medication Order 08/24/2024 08/25/2024 08/26/2024 acetaminophen (Tylenol) tablet 975 mg 975 mg, oral, Once, On Hillary 08/26/24 at 1630, For 1 dose, Recovery (only), If ordered PRN for pain, nurse is permitted to administer this medication for higher pain scores based on patient preference? Yes 1630 (Due) lidocaine (Xylocaine) 10 mg/mL (1 %) injection 0.1 mL 0.1 mL, subcutaneous, Once, On Hillary 08/26/24 at 1630, For 1 dose, Recovery (only), To be used for IV insertion ONLY 1630 (Due) piperacillin-tazobactam (Zosyn) 3.375 g in dextrose (iso) IV 50 mL (COMPLETED) 3.375 g, intravenous, Administer over 0.5 Hours, 30 min pre-op, Starting on Hillary 08/26/24 at 1346, For 1 dose, Preprocedure, premix bag, Dosing of this medication varies based on severity of illness. Does this patient have sepsis or concern for sepsis (probable or documented infection plus systemic manifestations of infection)? No, Suspected Indication (Select all that apply): Surgical Prophylaxis, Indications: Surgical Prophylaxis 1517 (Given - Provid er: LOAN Hebert) Continuous Medication Order 08/24/2024 08/25/2024 08/26/2024 lactated Ringer's infusion 100 mL/hr, intravenous, Continuous, Starting on Hillary 08/26/24 at 1630, For 1 day, Recovery (only) 1630 (Due) PRN Medication Order 08/24/2024 08/25/2024 08/26/2024 albuterol 2.5 mg /3 mL (0.083 %) nebulizer solution 2.5 mg 2.5 mg, nebulization, Once as needed, wheezing, Starting on Hillary 08/26/24 at 1606, For 1 dose, Recovery (only) diphenhydrAMINE (BENADryl) injection 12.5 mg 12.5 mg, intravenous, Once as needed, itching, allergic reaction, Starting on Hillary 08/26/24 at 1606, For 1 dose, Recovery (only) fentaNYL PF (Sublimaze) injection 12.5 mcg 12.5 mcg, intravenous, Every 5 min PRN, pain mild (1-3), first line, Starting on Hillary 08/26/24 at 1606, Recovery (only), Max total of 200 micrograms regardless of dose., If ordered PRN for pain, nurse is permitted to administer this medication for higher pain scores based on patient preference? Yes hydrALAZINE (Apresoline) injection 5 mg 5 mg, intravenous, Administer over 2 Minutes, Every 30 min PRN, systolic blood pressure greater than 180 mmHg and heart rate less than 60 BPM, Starting on Hillary 08/26/24 at 1606, For 2 doses, Recovery (only) HYDROmorphone (Dilaudid) injection 0.5 mg 0.5 mg, intravenous, Every 5 min PRN, pain moderate (4-6), first line, Starting on Hillary 08/26/24 at 1606, Recovery (only), Max total of 4 mg regardless of dose. HYDROmorphone (Dilaudid) injection 1 mg 1 mg, intravenous, Every 5 min PRN, pain severe (7-10), first line, Starting on Hillary 08/26/24 at 1606, Recovery (only), Max total of 4 mg regardless of dose. midazolam (Versed) injection 1 mg 1 mg, intravenous, Once as needed, anxiety, Starting on Hillary 08/26/24 at 1606, For 1 dose, Recovery (only) ondansetron (Zofran) injection 4 mg 4 mg, intravenous, Once as needed, nausea/vomiting, first line, Starting on Hillary 08/26/24 at 1606, For 1 dose, Recovery (only), When administering via IV Push, administer over 3-5 minutes. oxyCODONE (Roxicodone) immediate release tablet 5 mg 5 mg, oral, Every 4 hours PRN, pain severe (7-10), second line, Starting on Hillary 08/26/24 at 1606, Recovery (only), When able to take oral medications., If ordered PRN for pain, nurse is permitted to administer this medication for higher pain scores based on patient preference? Yes oxygen (O2) therapy inhalation, Continuous PRN - O2/gases, other, Starting on Hillary 08/26/24 at 1606, Recovery (only), Device: Nasal Cannula, Rate in liters per minute: Other, Custom Value: 1-6 LPM, Keep O2 Sat Above: 92% 1608 (Start - Provid er: Nayana Knight RN)1615 (Rate Change Medical Gas - Provider: Nayana Knight RN)1630 (Stopped - Provider: Nayana Knight RN) Goals (unrecognized section and content) Goals may be documented in a n alternate section FOR RECORDS PERTAINING TO PATIENTS WHO ARE [...] BE BASED ON THE PRIMARY CLINICAL RECORDS. [facility] [employer] [facility]. provides no warranty or guarantee of the accuracy or completeness of information in this document.
== END 2024-10-23 08:15 | disposition home or self-care (01) ==
LOC: US 08:14
PROVIDERS: PCP Family Medicine; Visit Provider Family Medicine
DX: R59.1 Generalized enlarged lymph nodes (principal)
CPT/HCPCS: 76882

== ENCOUNTER 2024-11-01 12:53 | Outpatient (OUT) | payer OTHER, SELFPAY ==
--- OUTSIDE RECORDS SUMMARY | 2024-10-18 07:22 | XMS_ITS ---
Author Organization [facility] in [place] Address [address] [place] [address] Care Team Providers Care Master Baker Name Role Phone Ruben Camacho Primary Care Provider REASON FOR VISIT rf metformin Medications Medication SIG (Take, Route, Fr equency, Duration) Notes Start Date End Date Status metFORMIN HCl 500 MG 1 tablet Orally twi ce daily for 90 days 02/24/2023 Active Encounters Encounter Location Date Provider Diagnosis [facility] [address] [place] [address] 10/18/2024 Ruben Camacho Well adult Z00.0 0 Assessments Encounter Date Diagnosis (ICD Code) Assessment Notes Treatment Notes Treatment Clinical Notes Section Notes 10/18/2024 Well adult (ICD-10 - Z00.00) Plan Of Treatment Medication Medication Name Sig Start Date Stop Date Notes metFORMIN HCl 500 MG 1 tablet Orally twi ce daily for 90 days 02/24/2023 Progress Notes * [place] WILSONDOB:1970 ([age] yo M)Acc No.[id number]:10/18/2024 Patient: José Miguel POLLARDic :1970 A ge:54 Y S ex:Male Address:[address] [place], [address] * Refills Refill metFORMIN HCl Tablet, 500 MG, Orally, 180, 1 tablet, twice daily, 90 days, Refills=1 * true * Date: Generated for Jadon woodson/Gregorio/Altagraciasmitting on: 0 11/01/2024 12:56 PM EDT
--- OUTSIDE RECORDS SUMMARY | 2024-10-24 08:41 | XMS_ITS ---
Author Organization The [facility] in [place] Address [address] [place] [address] Care Team Providers Care Typing Element Machine Operator Name Role Phone Ruben Camacho Primary Care Provider REASON FOR VISIT US Results Encounters Encounter Location Date Provider Diagnosis [facility] [address] [place] [address] 10/24/2024 Ruben Camacho Plan Of Treatment No Information Progress Notes * Rome WILSONDOB:1970 ([age] yo M)Acc No.[id number]:10/24/2024 Patient: José Miguel POLLARDic :1970 A ge:54 Y S ex:Male Address:[facility] [place], [address] * true * Date: Generated for Printi ng/Fapeterg/eTransmitting on: 0 11/01/2024 12:55 PM EDT
--- OUTSIDE RECORDS SUMMARY | 2024-10-25 07:13 | XMS_ITS ---
Author Organization The [facility] in [place] Address [address] [place] [address] Care Team Providers Care Residential Mortgage Underwriter Name Role Phone Ruben Camacho Primary Care Provider Encounters Encounter Location Date Provider Diagnosis [facility] [address] [place] [address] 10/25/2024 Ruben Camacho Plan Of Treatment No Information Progress Notes * Rome WILSONDOB:1970 ([age] yo M)Acc No.[id number]:10/25/2024 Patient: Rome POLLARD :1970 A ge:54 Y S ex:Male Address:[address] [place] [address] * true * Date: Generated for Jadon woodson/Gregorio/eTransmitting on: 0 11/01/2024 12:55 PM EDT
--- OUTSIDE RECORDS SUMMARY | 2024-11-01 12:55 | XMS_ITS | Clinical Summary ---
Author Organization [facility] Address [address] [place] [address] Care Team Providers Care Industry Consultant Name Role Phone Braydon Burks MD Primary Care Provider Unavailabl e Allergies No known active allergies Medications simvastatin (ZOCOR) 40 MG tablet Take 40 mg by mouth nightly Active gabapentin (NEURONTIN) 600 MG tablet Take 600 mg by mouth 3 times daily.. Active fenofibrate 160 MG tablet Take 160 mg by mouth daily Active SUMAtriptan (IMITREX) 100 MG tablet Take 100 mg by mouth once as needed for Migraine Active tiZANidine (ZANAFLEX) 4 MG tablet Take 8 mg by mouth daily 3 02/22/2018 Active metoprolol tartrate (LOPRESSOR) 100 MG tablet Take 1 tablet by mouth 2 times daily 60 tablet 3 05/02/2018 Active PARoxetine (PAXIL) 40 MG tablet Take 1 tablet by mouth every morning 30 tablet 3 05/03/2018 Active gabapentin (NEURONTIN) 600 MG tabletIndicatio ns:Lumbar radiculopathy,S kaylan stenosis, lumbar region with neurogenic claudication,Sp ondylolisthesis of lumbar region,Pseudoar throsis of lumbar spine Take 1 tablet by mouth 3 times daily for 30 days.. 90 tablet 05/22/2018 Active Active Problems Problem Noted Date Diagnosed Date Status post lumbar spinal fusion 04/30/2018 Family History Medical History Relation Name Comments High Blood Pressure Father Arthritis Mother High Blood Pressure Mother Relation Name Status Comments Father Mother Social History Tobacco Use Types Packs/Day Years Used Date Smoking Tobacco: Never Smokeless Tobacco: Never Sex and Gender Information Value Date Recorded Sex Assigned at Not on file Legal Sex Male 2:12 PM EDT Gender Identity Not on file Sexual Orientation Not on file Last Filed Vital Signs Vital Sign Reading Time Taken Comments Blood Pressure 157/79 05/07/2018 11:47 AM EST Pulse 70 05/07/2018 11:45 AM EST Temperature 36.6 C (97.9 F) 11/03/2018 11:24 AM EDT Respiratory Rate 19 05/07/2018 11:45 AM EST Oxygen Saturation 97% 05/07/2018 11:45 AM EST Inhaled Oxygen Concentration - - Weight 142.9 kg (315 lb) 11/03/2018 11:24 AM EDT Height 177.8 cm (5' 10 ) 11/03/2018 11:24 AM EDT Body Mass Index 45.2 11/03/2018 11:24 AM EDT Plan of Treatment Not on file Medical Devices Implanted Type Area Supervisor Incising Device Identifier Shelf Expiration Date Model / Serial / Lot Kit Sealant Surgiflo Hemostatic Matrix Implanted:Qty : 1 on 04/30/2018 by Braydon Burks MD at [facility] Bone/Gra ft/Tissu e/Human/ Synth N/A: Spine Lumbar JN[place]: [employer]-PMM 12/10/2019 [id number] / / [id number] Massimo-Graft Infuse Kt Sm Implanted:Qty : 1 on 04/30/2018 by Braydon Burks MD at [facility] Bone/Gra ft/Tissu e/Human/ Synth N/A: Spine Lumbar [employer]-PMM 07/09/2019 [id number] / / [id number] Graft Canc Chip [id number] 15cc Implanted:Qty : 1 on 04/30/2018 by Braydon Burks MD at [facility] Bone/Gra ft/Tissu e/Human/ Synth N/A: Spine Lumbar [employer]KELET[employer]ANS[employer]ANT FND-PMM 02/12/2021 [id number] / / Screw Reline O 2s Polyaxial 7.5x55mm Implanted:Qty : 2 on 04/30/2018 by Braydon Burks MD at [facility] Screw/Pl ate/Nail /Malachi N/A: Spine Lumbar [employer]-PMM [id number] / / Screw Lk Reline Opn Tulip 5.5mm Implanted:Qty : 4 on 04/30/2018 by Braydon Burks MD at [facility] Spine N/A: Spine Lumbar [employer]-PMM [id number] / / Impl Spine Malachi Reline-O Lrdtc 5.5x45mm Implanted:Qty : 2 on 04/30/2018 by Braydon Burks MD at [facility] Spine N/A: Spine Lumbar [employer]-PMM [id number] / / Connector Reline-O X C 45-65mm 5.5 Lp Ad Implanted:Qty : 1 on 04/30/2018 by Braydon Burks MD at [facility] Spine N/A: Spine Lumbar [employer]-PMM [id number] / / Insurance [employer] BENEFIT [employer] BENEFIT Advance Directives * Full Code (Latest Code Status on File) Date Activated Date Inactivated Comments 04/30/2018 8:13 PM 05/02/2018 4:28 PM Care Teams Industry Consultant Relationship Specialty Start Date End Date Braydon Burks MD PCP - General Neurosurgery 05/07/18
--- OUTSIDE RECORDS SUMMARY | 2024-11-01 12:55 | XMS_ITS | Encounter Summary ---
Author Organization [facility] Address [address] [place] [address] Phone Care Team Providers Care Fire Crew Specialist Name Role Phone Gama Camacho MD Primary Care Provider [phone] Encounter Details Date Type Department Care Team ([facility] st Contact Info) Description 07/21/2020 Orders Only [facility] [address] [place] [address] Conversion, Onbase Social History Tobacco Use Types Packs/Day Years Used Date Smoking Tobacco: Never Assessed Sex and Gender Information Value Date Recorded Sex Assigned at Male 08/26/2024 12:16 PM EDT Legal Sex Male 9:59 PM EST Gender Identity Male 08/26/2024 12:16 PM EDT Sexual Orientation Straight 07/29/2024 9: 11 AM EDT documented as of this encounter Plan of Treatment Scheduled Orders Name Type Priority Associated Diagnoses Orde r Schedule OUTSIDE LAB SCAN Lab Ordered: 07/21/2020 OUTSIDE LAB SCAN Lab Ordered: 07/21/2020 documented as of this encounter Visit Diagnoses Not on filedocumented in this encounter Care Teams Fire Crew Specialist Relationship Specialty Start Date End Date Gama Camacho MD [address] [place] [address] PCP - General Family Medicine 08/03/24 documented as of this encounter
--- OUTSIDE RECORDS SUMMARY | 2024-11-01 12:56 | XMS_ITS | Clinical Summary ---
Author Organization [facility] Address [address] [place] [address] Phone Care Team Providers Care Change Management Facilitator Name Role Phone Gama Camacho MD Primary Care Provider [phone] Allergies No known active allergies Medications fenofibrate (Triglide) 160 mg tablet Take 1 tablet (160 mg) by mouth once daily. Active irbesartan (Avapro) 150 mg tablet Take 1 tablet (150 mg) by mouth once daily. Active metoprolol tartrate (Lopressor) 100 mg tablet Take 1 tablet (100 mg) by mouth 2 times a day. Active oxaprozin (Daypro) 600 mg tablet Take 2 tablets (1,200 mg) by mouth once daily. Active PARoxetine (Paxil) 40 mg tablet Take 1.5 tablets (60 mg) by mouth once daily in the morning. Active tiZANidine (Zanaflex) 4 mg capsule Take 1 capsule (4 mg) by mouth once daily at bedtime. Active simvastatin (Zocor) 40 mg tablet Take 1 tablet (40 mg) by mouth once daily in the evening. Active SUMAtriptan (Imitrex) 100 mg tablet Take 1 tablet (100 mg) by mouth 1 time if needed for migraine. May repeat an additional dose after 2 hours Active metFORMIN (Glucophage) 500 mg tablet Take 1 tablet (500 mg) by mouth 2 times daily (morning and late afternoon). Active amoxicillin (Amoxil) 500 mg tablet TAKE 1 TABLET BY MOUTH EVERY 12 HOURS FOR SEPSIS 5 Active amoxicillin-cla vulanate (Augmentin) 875-125 mg tablet Take 1 tablet by mouth every 12 hours. 5 Active pantoprazole (ProtoNix) 40 mg EC tablet Take 1 tablet (40 mg) by mouth early in the morning.. 5 Active Active Problems Problem Noted Date Diagnosed Date Right kidney stone 07/29/2024 Encounters Date Type Department Care Team Description 08/26/2024 3:02 PM EDT Anesthesia Event [facility] [place] [address] [place] [address] [place] [address] Dusty Pederson, Maria G Cummings, LOAN 08/26/2024 3:00 PM EDT - 08/26/2024 4:45 PM EDT Surgery [facility] [place] [address] [place] [address] [place] [address] Landon Sanches MD CYSTOSCOPY, WITH LASER LITHOTRIPSY [48278 (CPT ) +1 more] 08/26/2024 11:59 AM EDT - 08/26/2024 5:33 PM EDT Hospital Encounter [facility] [place] [address] [place] [address] [place] [address] Landon Sanches MD Right kidney stone (Primary Dx) Discharge Disposition: Home 08/26/2024 Travel from Last 3 Months Family History Medical History Relation Name Comments Hypertension Father Hypertension Mother Relation Name Status Comments Father Mother Social History Tobacco Use Types Packs/Day Years Used Date Smoking Tobacco: Never Smokeless Tobacco: Never Tobacco Cessation:Counseling Given: Not Answered Alcohol Use Standard Drinks/Week Comments Yes 0 (1 standard drink = 0.6 oz pur e alcohol) 4-5 drinks/year B1300 Health Literacy Answer Date Recor ded How often do you need to hav e someone help you when you read instructions, pamphlets, or other written material from your doctor or pharmacy? Never 07/29/2024 [facility] Utilities Answer Date Recorded In the past 12 months has e [employer], gas, oil, or water [employer] threatened to shut off services in your home? No 07/29/2024 Humiliation, Afraid, Rape, and Kick questionnair e Answer Date Recorded Within the last year, have y ou been afraid of your partner or ex-partner? No 07/29/2024 Within the last year, have y ou been humiliated or emotionally abused in other ways by your partner or ex-partner? No Within the last year, have y ou been kicked, hit, slapped, or otherwise physically hurt by your partner or ex-partner? No 07/29/2024 Within the last year, have y ou been raped or forced to have any kind of sexual activity by your partner or ex-partner? No 07/29/2024 Social Connection and Isolat ion Panel [NHANES] Answer Date Recorded In a typical week, how many times do you talk on the phone with family, friends, or neighbors? More than three times a week 07/29/2024 How often do you get togethe r with friends or relatives? Once a week 07/29/2024 How often do you attend chur or evangelical services? Never 07/29/2024 Do you belong to any clubs o r organizations such as jainism groups, unions, fraternal or athletic groups, or school groups? No 07/29/2024 How often do you attend meet ings of the clubs or organizations you belong to? Never 07/29/2024 Are you , , di vorced, , never , or living with a partner? 07/29/2024 AUDIT-C Answer Date Recorded Q1: How often do you have a drink containing alc ohol? Monthly or less 07/29/2024 Q2: How many drinks containi ng alcohol do you have on a typical day when you are drinking? 1 or 2 07/29/2024 Q3: How often do you have si x or more drinks on one occasion? Never 07/29/2024 Overall Financial Resource Strain (CARDIA) Answe r Date Recorded How hard is it for you to pa y for the very basics like food, housing, medical care, and heating? Not hard at all 07/30/2024 PHQ-2 Answer Date Recorded Patient Health Questionnaire-2 Score 0 07/29/2024 [facility] [place] [facility] Occup[facility] - Occupational Stress Questionnaire Answer Date Recorded Do you feel stress - tense, restless, nervous, or anxious, or unable to sleep at night because your mind is troubled all the time - these days? Not at all 07/29/2024 Exercise Vital Sign Answer Date Recorde d On average, how many days pe r week do you engage in moderate to strenuous exercise (like a brisk walk)? 2 days 07/29/2024 On average, how many minutes do you engage in exercise at this level? 20 min 07/29/2024 Hunger Vital Sign Answer Date Recorded Within the past 12 months, y ou worried that your food would run out before you got the money to buy more. Never true 07/30/19 Within the past 12 months, t he food you bought just didn't last and you didn't have money to get more. Never true 07/29/2024 PRAPARE - Transportation Answer Date Re corded In the past 12 months, has l ack of transportation kept you from medical appointments or from getting medications? No 07/11 In the past 12 months, has l ack of transportation kept you from meetings, work, or from getting things needed for daily living? No 07/30/2024 Housing Stability Vital Sign Answer Arron e Recorded In the last 12 months, was t here a time when you were not able to pay the mortgage or rent on time? No 07/30/2024 In the past 12 months, how m any times have you moved where you were living? 0 07/30/2024 At any time in the past 12 m [facility], were you homeless or living in a correction (including now)? No 07/30/2024 Sex and Gender Information Value Date Recorded Sex Assigned at Male 08/26/2024 12:16 PM EDT Legal Sex Male 9:59 PM EST Gender Identity Male 08/26/2024 12:16 PM EDT Sexual Orientation Straight 07/29/2024 9: 11 AM EDT Last Filed Vital Signs Vital Sign Reading Time Taken Comments Blood Pressure 163/77 08/26/2024 4:59 PM EDT Pulse 81 08/26/2024 5:00 PM EDT Temperature 36.5 C (97.7 F) 08/26/2024 4:08 PM EDT Respiratory Rate 19 08/26/2024 5:00 PM EDT Oxygen Saturation 96% 08/26/2024 5:00 PM EDT Inhaled Oxygen Concentration - - Weight 150 kg (329 lb 15.8 oz) 08/26/2024 12:25 PM EDT Height 177.8 cm (5' 10 ) 08/26/2024 12:25 PM EDT Body Mass Index 47.35 08/26/2024 12:25 PM EDT Plan of Treatment Health Maintenance Due Date Last Done Comments CT Colonography 1972 FIT-DNA (Cologuard) 1972 FIT 1972 Lipid Panel 1972 Sigmoidoscopy 1972 Yearly Adult Physical 1970 MMR Vaccines (1 of 1 - Standard series) 1973 Hepatitis C Screening 1990 Hepatitis A Vaccines (1 of 2 - Risk 2-dose series) 10/05/1991 Hepatitis B Vaccines (1 of 3 - 19+ 3-dose series) 10/05/1991 DTaP/Tdap/Td Vaccines (1 - Tdap) 1994 Pneumococcal Vaccine (1 of 1 - PCV) 2022 Zoster Vaccines (1 of 2) 2022 COVID-19 Vaccine (1 - season) 2024 Influenza Vaccine (Season Ended) 2025 Diabetes Screening 08/26/2025 08/26/2024, 0 08/26/2024, 07/30/2024, Additional history exists Colonoscopy 04/09/2033 04/09/2023 Colorectal Cancer Screening 04/09/2033 Irritable Bowel Syndrome Discontinued 07/24/2020 HIV Screening Completed 11/22/2020 HIB Vaccines Aged Out No longer eligi ble based on patient's age to complete this topic HPV Vaccines Aged Out No longer eligi ble based on patient's age to complete this topic IPV Vaccines Aged Out No longer eligi ble based on patient's age to complete this topic Meningococcal Vaccine Aged Out No alan shyanne eligible based on patient's age to complete this topic Rotavirus Vaccines Aged Out No longer eligible based on patient's age to complete this topic Medical Devices Implanted Type Area Ironer Or Presser Device Identifier Shelf Expiration Date Model / Serial / Lot Stent, Ureteral Contour, 6fr X 28cm - [id number] Implanted:Qty : 1 on 07/29/2024 by Landon Sanches MD at [facility] Stent Right: Ureter [employer] [id number] 02/18/2027 [id number] 40 / / [id number] Stent, Ureteral Percuflex 6 X 28 - [id number] Implanted:Qty : 1 on 07/29/2024 by Landon Sanches MD at [facility] Stent Right: Ureter [employer] [id number] 11/18/2026 [id number] 40 / / [id number] Stent, Ureteral Contour, 6fr X 26cm - [id number] Implanted:Qty : 1 on 08/26/2024 by Landon Sanches MD at [facility] Stent Right: Ureter [employer] [id number] 03/30/2027 [id number] 30 / / [id number] Procedures Procedure Name Priority Date/Time Associated Diagnosis Comments FL FLUORO IMAGES NO CHARGE Routine 08/26/2024 5:14 PM EDT POCT GLUCOSE Routine 08/26/2024 4:42 PM EDT PULSE OXIMETRY, CONTINUOUS Routine 08/26/2024 4:07 PM EDT MN AN ELECTIVE ENDOTRACHEAL AIRWAY Routine 08/26/2024 3:11 PM EDT MN CYSTO W/INSERT URETERAL STENT 08/26/2024 3:02 PM EDT [facility] of kidney MN CYSTO W/URTROSCOPY W/TX INTRA-RENAL STRICTURE 08/26/2024 3:02 PM EDT [facility] MN CYSTO/URETERO W/LITHOTRIPSY &INDWELL STENT INSRT 08/26/2024 3:02 PM EDT [facility] kidney POCT GLUCOSE Routine 08/26/2024 12:16 PM EDT HIV 1/2 ANTIGEN/ANTIBODY SCREEN WIH REFLEX TO CONFIRMATION Routine 11/22/2020 3:56 PM EDT BRONCHOSCOPY Routine 07/24/2020 7:04 AM EDT from Last 3 Months or Most Recently Relevant to Health Maintenance Results * FL fluoro images no charge (08/26/2024 5:14 PM EDT) Narrative IMAGING - 08/26/2024 5:15 PM EDT These images are not reportable by radiology and will not be interpreted by Radiologists. us Landon Sanches MD IMG FLUOROSCOPY PROCEDURES Johana l Result IMAGING * (ABNORMAL) POCT GLUCOSE (08/26/2024 4:42 PM EDT) POCT Glucose 140(H) 74 - 99 mg/dL 08/26/2024 4:46 PM EDT [facility] Blood Capillary blood specimen / Unknown 08/26/2024 4:42 PM EDT 08/26/2024 4:46 PM EDT Landon Sanches MD LAB POINT OF CARE TE ST DOCKED DEVICE UNSOLICITED RESULTS Final Result Performing Organization Address City/[facility]/ZIP Co de Phone Number [facility] [address] [place] [phone] * MN AN ELECTIVE ENDOTRACHEAL AIRWAY (08/26/2024 3:11 PM EDT) Maria G Austin CAA - 08/26/2024 3:11 PM EDT LOAN Hebert 08/26/2024 3:15 PM Airway Date/Time: 08/26/2024 3:11 PM Reason: elective Airway not difficult Staffing Performed: LOAN Authorized by: Dusty Pederson DO Performed by: LOAN Hebert Patient location during procedure: OR Patient Condition Indications for airway management: anesthesia Patient position: sniffing Sedation level: deep Final Airway Details Preoxygenated: yes Final airway type: endotracheal airway Successful airway: ETT Successful intubation technique: video laryngoscopy (glidescope 4) Adjuncts used in placement: intubating stylet Blade: Saniya Blade size: #4 ETT size (mm): 7.5 Cormack-Lehane Classification: grade I - full view of glottis Placement verified by: chest auscultation and capnometry Measured from: lips ETT to lips (cm): 25 Number of attempts at approach: 1 Dusty Pederson DO ANESTHESIA ORDERABLES Final Result * (ABNORMAL) POCT GLUCOSE (08/26/2024 12:16 PM EDT) POCT Glucose 143(H) 74 - 99 mg/dL 08/26/2024 12:19 PM EDT [facility] Blood Capillary blood specimen / Unknown 08/26/2024 12:16 PM EDT 08/26/2024 12:19 PM EDT us Landon Sanches MD LAB POINT OF CARE TE ST DOCKED DEVICE UNSOLICITED RESULTS Final Result Performing Organization Address City/[facility] [[email or web address]] Co de Phone Number [facility] [address] [address] [phone] * HIV 1/2 Antigen/Antibody Screen with Reflex to Confirmation (11/22/2020 3:56 PM EDT) HIV 1 and 2 Screen [facility] Comment: HIV Ag/Ab screen is performed using the Siemens TypeformllPharminox HIV Ag/Ab Combo assay which detects the presence of HIV p24 antigen as well as antibodies to HIV-1 (Group M and O) and HIV-2. . No laboratory evidence of HIV infection. If acute HIV infection is suspected, consider testing for HIV RNA by PCR (viral load). 11/22/2020 3:56 PM EDT 11/22/2020 6:23 PM EDT us Carter Dangelo MD LAB BLOOD ORDERABLES Final Resul t Performing Organization Address City/[facility] [[email or web address]] Co de Phone Number [facility] * Bronchoscopy (07/24/2020 7:04 AM EDT) Anatomical Region Laterality Modality Endoscopy 07/24/2020 7:04 AM EDT Narrative 05/07/2022 10:57 AM EST Patient Name: Rome Wilson Procedure Date: 07/24/2020 7:04 AM Date of : 1970 Room: Bronchoscopy Room 1 Attending MD: Stuart Miguel MD, [id number] Procedure: Bronchoscopy Indications: Mediastinal adenopathy, Bilateral hilar lymphadenopathy, Shortness of breath Providers: Stuart Miguel MD (Doctor), Anthony Calderon RN (Nurse), Rosy Enriquez (Nurse), Robby Ferro MD (Fellow) Referring MD: Roverto Jaimes DO (Referring MD) Medicines: General Anesthesia, See the Anesthesia note for documentation of the administered medications Complications: No immediate complications Procedure: Pre-Anesthesia Assessment: - A History and Physical has been performed. Patient meds and allergies have been reviewed. The risks and benefits of the procedure and the sedation options and risks were discussed with the patient. All questions were answered and informed consent was obtained. Patient identification and proposed procedure were verified prior to the procedure by the physician in the procedure room at 08:08 AM. Mental Status Examination: alert and oriented. Airway Examination: Please refer to anesthesia staff note. Respiratory Examination: clear to auscultation. CV Examination: normal. ASA Grade Assessment: II - A patient with mild systemic disease. After reviewing the risks and benefits, the patient was deemed in satisfactory condition to undergo the procedure. The anesthesia plan was to use general anesthesia. Immediately prior to administration of medications, the patient was re-assessed for adequacy to receive sedatives. The heart rate, respiratory rate, oxygen saturations, blood pressure, adequacy of pulmonary ventilation, and response to care were monitored throughout the procedure. The physical status of the patient was re-assessed after the procedure. After obtaining informed consent, the therapeutic bronchoscope was introduced through the mouth, via the endotracheal tube (the patient was intubated for the procedure) and advanced to the tracheobronchial tree of both lungs. the linear ultrasound bronchoscope was introduced through the mouth, via the endotracheal tube (the patient was intubated for the procedure) and advanced to the tracheobronchial tree of both lungs. The procedure was accomplished without difficulty. The patient tolerated the procedure well. The total duration of the procedure was 58 minutes. Findings: The endotracheal tube is in good position. The trachea is of normal caliber. The naman is sharp. The tracheobronchial tree was examined to at least the first subsegmental level. Bronchial mucosa and anatomy are normal; there are no endobronchial lesions, and no secretions. Bronchoalveolar lavage was performed in the RML medial segment (B5) of the lung and sent for cell count and differential, routine cytology, bacterial, AFB and fungal analysis and CD4 / CD8 ratio. 120 mL of fluid were instilled. 50 mL were returned. The return was cellular. There were no mucoid plugs in the return fluid. Multiple specimens were obtained and pooled into one specimen, which was sent for analysis. The flexible bronchoscope was removed from the airway, and exchanged for the curvilinear EBUS bronchoscope. A systematic EBUS staging examination of the bilateral jalyn and mediastinum was performed, as documented below. Lymph Nodes: Lymph node sizing was performed via endobronchial ultrasound for suspected sarcoidosis. Sampling by transbronchial needle aspiration was also performed using an Olympus ViziShot 22 gauge needle in the right lower paratracheal region (level 4R), subcarinal mediastinum (level 7) and right inferior interlobar region (level 11Ri) and sent for routine cytology. - The 11Ri (inferior interlobar) node was 17.5 mm by EBUS. Four samples with the needle were obtained. - The 7 (subcarinal) node was 12.4 mm by EBUS. Four samples with the needle were obtained. - The 4R (lower paratracheal) node was 15.5 mm by EBUS. Four samples with the needle were obtained. Lymph Nodes: Rapid On-Site Evaluation (FAYE): Cytology was preliminarily non-diagnostic in the subcarinal mediastinum (level 7) and right inferior interlobar region (level 11Ri). Preliminary cytology was suggestive of non-necrotic granulomatous tissue (final results are pending) in the right lower paratracheal region (level 4R). Transbronchial core biopsies of a subcarinal lymph node were performed in the subcarinal area using CoreDX micro-forceps and sent for histopathology examination. The procedure was guided by ultrasound. The sampling device penetrated the full thickness of the bronchial wall in order to reach the sampling site. Three biopsy passes were performed. Three biopsy samples were obtained. Estimated Blood Loss: Estimated blood loss was minimal. Impression: - Bronchoalveolar lavage was performed in the L. - Curvilinear EBUS was performed to evaluate the 4R, 7, and 11Ri lymph nodes and EBUS-TBNA was performed. - Rapid On-Site Evaluation (FAYE): Preliminary cytology was non-diagnostic in node level 7 and node level 11Ri and of non-necrotic granulomatous tissue in node level 4R. - Transbronchial core biopsies were performed of the subcarinal lymph node. Recommendation: - The patient will be observed post-procedure, until all discharge criteria are met. - Await BAL, biopsy and cytology results. - Follow up with referring physician as previously scheduled. Procedure Code(s): --- Professional --- 58559, Bronchoscopy, rigid or flexible, including fluoroscopic guidance, when performed; with endobronchial ultrasound (EBUS) guided transtracheal and/or transbronchial sampling (eg, aspiration[s]/biopsy[ies]), 3 or more mediastinal and/or hilar lymph node stations or structures 20412, Bronchoscopy, rigid or flexible, including fluoroscopic guidance, when performed; with transbronchial lung biopsy(s), single lobe 07849, Bronchoscopy, rigid or flexible, including fluoroscopic guidance, when performed; with bronchial alveolar lavage Diagnosis Code(s): --- Professional --- R59.0, Localized enlarged lymph nodes R06.02, Shortness of breath CPT copyright 2021 [employer]. All rights reserved. The codes documented in this report are preliminary and upon collaborative physician review may be revised to meet current compliance requirements. Attending Participation: I was present and participated during the entire procedure, including non-lorenz portions. Stuart Miguel MD 07/25/2020 9:47:03 AM This report has been signed electronically. Number of Addenda: 0 Note Initiated On: 07/24/2020 7:04 AM Patient Profile: This is a 49 year old male. Refer to note in patient chart for documentation of history and physical. The attending physician independently verified the history and physical at 8:00am on 07/24/20. Procedure Note Stuart Miguel MD - 06/28/2024 Patient Name: Rome Wilson Procedure Date: 07/24/2020 7:04 AM Date of : 1970 Room: Bronchoscopy Room 1 Attending MD: Stuart Miguel MD, [id number] Procedure: Bronchoscopy Indications: Mediastinal adenopathy, Bilateral hilar lymphadenopathy, Shortness of breath Providers: Stuart Miguel MD (Doctor), Anthony Johnson RN (Nurse), Rosy Enriquez (Nurse), Robby Ferro MD (Fellow) Referring MD: Roverto Jaimes DO (Referring MD) Medicines: General Anesthesia, See the Anesthesia note for documentation of the administered medications Complications: No immediate complications Procedure: Pre-Anesthesia Assessment: - A History and Physical has been performed.Patient meds and allergies have been reviewed. The risksand benefits of the procedure and the sedation optionsand risks were discussed with the patient. Allquestions were answered and informed consent was obtained. Patient identification and proposed procedure were verified prior to the procedure by the physician in the procedure room at 08:08 AM. Mental Status Examination: alert and oriented. AirwayExamination: Please refer to anesthesia staff note. Respiratory Examination: clear to auscultation. CV Examination: normal. ASA Grade Assessment: II - A patient withmild systemic disease. After reviewing the risks and benefits, the patient was deemed in satisfactory condition to undergo the procedure. The anesthesia plan was to use general anesthesia. Immediatelyprior to administration of medications, the patient was re-assessed for adequacy to receive sedatives. The heart rate, respiratory rate, oxygen saturations, blood pressure, adequacy of pulmonary ventilation,and response to care were monitored throughout the procedure. The physical status of the patient was re-assessed after the procedure. After obtaining informed consent, the therapeutic bronchoscope was introduced through the mouth, viathe endotracheal tube (the patient was intubated forthe procedure) and advanced to the tracheobronchialtree of both lungs. the linear ultrasound bronchoscopewas introduced through the mouth, via the endotracheal tube (the patient was intubated for the procedure)and advanced to the tracheobronchial tree of bothlungs. The procedure was accomplished without difficulty.The patient tolerated the procedure well. The total duration of the procedure was 58 minutes. Findings: The endotracheal tube is in good position. The trachea is of normal caliber. The naman is sharp. The tracheobronchial tree was examinedto at least the first subsegmental level. Bronchial mucosa and anatomyare normal; there are no endobronchial lesions, and no secretions. Bronchoalveolar lavage was performed in the RML medial segment (B5)of the lung and sent for cell count and differential, routine cytology, bacterial, AFB and fungal analysis and CD4 / CD8 ratio. 120 mL offluid were instilled. 50 mL were returned. The return was cellular. Therewere no mucoid plugs in the return fluid. Multiple specimens were obtained and pooled into one specimen, which was sent for analysis. The flexible bronchoscope was removed from the airway, and exchangedfor the curvilinear EBUS bronchoscope. A systematic EBUS stagingexamination of the bilateral jalyn and mediastinum was performed, as documentedbelow. Lymph Nodes: Lymph node sizing was performed via endobronchial ultrasound for suspected sarcoidosis. Sampling by transbronchialneedle aspiration was also performed using an Olympus [id number] 22 gaugeneedle in the right lower paratracheal region (level 4R), subcarinal mediastinum (level 7) and right inferior interlobar region ([id number]) and sent for routine cytology. - The 11Ri (inferior interlobar) node was 17.5 mm by EBUS. Foursamples with the needle were obtained. - The 7 (subcarinal) node was 12.4 mm by EBUS. Four samples with the needle were obtained. - The 4R (lower paratracheal) node was 15.5 mm by EBUS. Four samples with the needle were obtained. Lymph Nodes: Rapid On-Site Evaluation (FAYE): Cytology waspreliminarily non-diagnostic in the subcarinal mediastinum (level 7) and right inferior interlobar region (level 11Ri). Preliminary cytology was suggestive of non-necrotic granulomatous tissue (final results are pending) in the right lower paratracheal region (level 4R). Transbronchial core biopsies of a subcarinal lymph node wereperformed in the subcarinal area using CoreDX micro-forceps and sent for histopathology examination. The procedure was guided by ultrasound.The sampling device penetrated the full thickness of the bronchial lazaro order to reach the sampling site. Three biopsy passes were performed. Three biopsy samples were obtained. Estimated Blood Loss: Estimated blood loss was minimal. Impression: - Bronchoalveolar lavage was performed in theRML. - Curvilinear EBUS was performed to evaluate the4R, 7, and 11Ri lymph nodes and EBUS-TBNA wasperformed. - Rapid On-Site Evaluation (FAYE): Preliminary cytology was non-diagnostic in node level 7 andnode level 11Ri and of non-necrotic granulomatous tissuein node level 4R. - Transbronchial core biopsies were performed ofthe subcarinal lymph node. Recommendation: - The patient will be observed post-procedure,until all discharge criteria are met. - Await BAL, biopsy and cytology results. - Follow up with referring physician as previously scheduled. Procedure Code(s): --- Professional --- 86928, Bronchoscopy, rigid or flexible, including fluoroscopic guidance, when performed; with endobronchial ultrasound (EBUS) guidedtranstracheal and/or transbronchial sampling (eg, aspiration[s]/biopsy[ies]), 3 or more mediastinal and/or hilar lymph node stations or structures 25508, Bronchoscopy, rigid or flexible, including fluoroscopic guidance, when performed; with transbronchial lung biopsy(s), single lobe 97801, Bronchoscopy, rigid or flexible, including fluoroscopic guidance, when performed; withbronchial alveolar lavage Diagnosis Code(s): --- Professional --- R59.0, Localized enlarged lymph nodes R06.02, Shortness of breath CPT copyright 2021 [employer]. All rights reserved. The codes documented in this report are preliminary and upon collaborative physician reviewmay be revised to meet current compliance requirements. Attending Participation: I was present and participated during the entire procedure, including non-lorenz portions. Stuart Miguel MD 07/25/2020 9:47:03 AM This report has been signed electronically. Number of Addenda: 0 Note Initiated On: 07/24/2020 7:04 AM Patient Profile: This is a 49 year old male. Refer to note in patient chart for documentation of history and physical. The attending physician independently verified the history and physical at 8:00am on07/24/20. Roverto Jaimes DO ENDOSCOPY PROCEDURE ORDERAB LES Edited Result - Final from Last 3 Months or Most Recently Relevant to Health Maintenance Insurance [employer]) [place] [address] [employer] Directives For more information, please contact: [phone] (Available ) * Full Code (Latest Code Status on File) Date Activated Date Inactivated Comments 07/29/2024 9:03 PM Question Answer Comments Plan of Care: Code Status Discussion Not Compl eted Decision Maker: Provider Rationale: Patient condition does not warra nt discussion Care Teams Change Management Facilitator Relationship Specialty Start Date End Date Gama Camacho MD [address] [place] [address] PCP - General Family Medicine 08/03/24
--- OUTSIDE RECORDS SUMMARY | 2024-11-01 12:56 | XMS_ITS | Patient Health Record ---
Author Organization [facility] Address [address] [place] [address] Care Team Providers Care Prefabricated Houses Trimmer Name Role Phone Gama Camacho Primary Care Provider Marlen mark Cruz Rodriguez Unavailable [phone] Allergies No Known Allergies Reason For Referral No Information Problems Problem Type SNOMED Code ICD Code Onset Dates Problem Status W/U Status Risk Notes Problem [id number] Primary osteoarthritis of right knee (M17.11) Active confirmed Vital Signs Height 5'11 in 02/02/2024 Weight 330 lbs 02/02/2024 BMI 46.02 02/02/2024 Encounters Encounter Location Date Provider Diagnosis [facility] Office [address] [place] [address] [address] [place] [address] 02/02/2024 Cruz Rodriguez Primary osteoarthrit is of right knee M17.11 Assessments Encounter Date Diagnosis (ICD Code) Assessment Notes Treatment Notes Treatment Clinical Notes Section Notes 02/02/2024 Primary osteoarthritis of right knee (ICD-10 - M17.11) 02/02/2024 Other For his right knee osteoarthritis we have discussed various treatment options, injections, therapy, surgery. For now he will observe. He will follow-up on an as-needed basis. Import medication Plan Of Treatment No Information Insurance Providers Payer Name Payer Address Payer Phone Subscriber Number Group Number Insured Name Patient Relationship to Insured Coverage Start Date Coverage End Date [employer] [address] [address] [place] [address] [id number] JERRY WILSON Self - patient is the insured Medical (General) History Medical History History ICD Code Respiratory problems: Lung Disease Diabetes High Blood Pressure Depression Sleep apnea CPAP Machine: Do you use the CPAP machine? Yes Surgical History Surgery Date(Month/Year) Left shoulder Back fusion
--- OUTSIDE RECORDS SUMMARY | 2024-11-01 12:56 | XMS_ITS | Clinical Summary ---
Author Organization [facility] Address [address] [place] [address] Care Team Providers Care Life Agent Name Role Phone Unavailable Primary Care Provider Unavailabl e Social History Tobacco Use Types Packs/Day Years Used Date Smoking Tobacco: Never Assessed Sex and Gender Information Value Date Recorded Sex Assigned at Not on file Legal Sex Male 6:48 PM EDT Gender Identity Not on file Sexual Orientation Not on file Plan of Treatment Not on file
--- OUTSIDE RECORDS SUMMARY | 2024-11-01 12:56 | XMS_ITS | Patient Health Record ---
Author Organization [facility] in [place] Address [address] [place] [address] Care Team Providers Care Energy Sales Consultant Name Role Phone Zacharyshanel Ruben Primary Care Provider Roverto Jaimes Unavailable [phone] Mile Farias Unavailable [phone] Allergies No Known Allergies Results Component Value Reference Range Notes XR KNEE RT 3V Reviewed date:12/28/2023 07:56:34 PM Interpretation: Performing Lab: Notes/Report: Source Facility: [place] [address] XRay Report Signed Patient: JERRY WILSON MR#: [id number] : 1970 Acct:[id number] Age/Sex: 53 / M ADM Date: 12/24/23 Loc: RAD Attending Dr: Doron Camacho M.D. Ordering Physician: Doron Camacho M.D. Date of Service: 12/24/23 Procedure(s): XR knee RT 3V Accession Number(s): [id number] cc: Doron Camacho M.D. [place] [id number] Patient Name: JERRY WILSON MRN: [id number] date: 1970 Sex: M Assigned Patient Location: RAD Current Patient Location: Accession/Order Number: [id number] Exam Date: 12/24/2023 12:50 Report Date: 12/27/2023 12:21 At the request of: DORON CAMACHO Procedure: XR knee RT 3V PROCEDURE: XR knee RT 3V COMPARISON: None. HISTORY: internal derangement right knee FINDINGS: BONES:Moderate to severe tricompartmental osteoarthritis with fpbs-zu-spnd articulation the medial compartment. Marginal osteophyte formation SOFT TISSUES:Negative. No visible soft tissue swelling. EFFUSION:Moderate joint effusion OTHER: Negative. XR/XR knee RT 3V IMPRESSION: Moderate to severe osteoarthritis Electronically authenticated by: JOSE BRUCE Date: 12/27/2023 12:21 Dictated By: Jose Bruce M.D. Signed By: 12/27/23 1224 DD/ 1221 TD/TT: Systems Designer: [place] [address] XRay Report Signed Patient: JERRY WILSON MR#: [id number] : 1970 Acct:[id number] Age/Sex: 53 / M ADM Date: 12/24/23 Loc: RAD Attending Dr: See Camacho M.D. Ordering Physician: Doron Camacho M.D. Date of Service: 12/24/23 Procedure(s): XR kne e RT 3V Accession Number(s): [id number] cc: Doron Camacho M.D. [place] [id number] Patient Name: JERRY WILSON MRN: [id number] date: 1970 Sex: M Assigned Patient Location: [facility] Current Patient Location: Accession/Order Numb er: [id number] Exam Date: 12/24/2023 12:50 Report Date: 12/27/2023 12:21 At the request of: DORON CAMACHO Procedure: XR knee RT 3V PROCEDURE: XR knee RT 3V COMPARISON: None. HISTORY: internal derangement right knee FINDINGS: BONES:Moderate to se tatum tricompartmental osteoarthritis with fdgs-xg-zugp articulation the med ial compartment. Marginal osteophyte formation SOFT TISSUES:Negativ e. No visible soft tissue swelling. EFFUSION:Moderate luiz int effusion OTHER: Negative. X R/XR knee RT 3V IMPRESSION: Moderate to severe osteoarthritis Electronically authenticated by: JOSE BRUCE Date: 12/27/2023 12:21 Dictated By: Medardo Bruce M.D. Signed By: 12/27/23 1224 DD/ 1221 TD/TT: Systems Designer: MR knee RT wo con Reviewed date:01/06/2024 04:09:48 PM Interpretation: Performing Lab: Notes/Report: Source Facility: [place] [address] Magnetic Resonance Report Signed Patient: JERRY WILSON MR#: [id number] : 1970 Acct:[id number] Age/Sex: 53 / M ADM Date: 01/05/24 Loc: RAD Attending Dr: Doron Camacho M.D. Ordering Physician: Doron Camacho M.D. Date of Service: 01/05/24 Procedure(s): MR knee RT wo con Accession Number(s): [id number] cc: Doron Camacho M.D. [place] [address] Patient Name: JERRY WILSON MRN: [id number] date: 1970 Sex: M Assigned Patient Location: [facility] Current Patient Location: Accession/Order Number: [id number] Exam Date: 01/05/2024 15:33 Report Date: 01/06/2024 10:45 At the request of: DORON CAMACHO Procedure: MR knee RT wo con EXAM: MR knee RT wo con HISTORY: Internal Derangement Of Knee COMPARISON: 12/24/2023 TECHNIQUE: MRI images obtained with multiple sequences. MRI of the right knee without contrast. Sequences obtained by standard department protocol. FINDINGS: Anterior cruciate and posterior cruciate ligaments are intact. Medial collateral ligament and lateral supporting structures are intact. Advanced degeneration of the medial compartment with full-thickness chondral loss and marginal osteophyte formation. Degeneration, maceration and tearing of the medial meniscal body. Free edge fraying of the medial meniscal posterior horn. Lateral meniscus is intact. Lateral compartment articular cartilage is preserved. Partial-thickness chondral fissuring/irregularity at the patellofemoral compartment. Extensor mechanism is intact. Intra-articular body of the lateral parapatellar recess measuring 1.5 x 1 cm. (Axial STIR image 4). Intra-articular body of the posterior aspect of the joint space measuring 1.3 x 0.7 cm (sagittal PD fat-sat image 10). Tricompartmental marginal osteophytes Mild subcutaneous soft tissue edema of the anterior aspect of the knee. No popliteal cyst. Large knee joint effusion. MR/MR knee RT wo con IMPRESSION: 1. Advanced degeneration of the medial compartment with full-thickness chondral loss and marginal osteophyte formation. 2. Degeneration, maceration and tearing of the medial meniscal body. 3. Large knee joint effusion. 4. Intra-articular body of the lateral parapatellar recess measuring 1.5 x 1 cm. (Axial STIR image 4). Intra-articular body of the posterior aspect of the joint space measuring 1.3 x 0.7 cm (sagittal PD fat-sat image 10). 5. Other findings as described. Electronically authenticated by: JAVIER WHELAN Date: 01/06/2024 10:45 Dictated By: Javier Whelan M.D. Signed By: 01/06/24 1048 DD/ 1045 TD/TT: Systems Designer: [place] [address] Magnetic Resonance Report Signed Patient: JERRY WILSON MR#: [id number] : 1970 Acct:[id number] Age/Sex: 53 / M ADM Date: 01/05/24 Loc: RAD Attending Dr: See Camacho M.D. Ordering Physician: Doron Camacho M.D. Date of Service: 01/05/24 Procedure(s): MR kne e RT wo con Accession Number(s): [id number] cc: Doron Camacho M.D. [address] [address] Patient Name: JERRY WILSON MRN: [id number] date: 1970 Sex: M Assigned Patient Location: RAD Current Patient Location: Accession/Order Numb er: [id number] Exam Date: 01/05/2024 15:33 Report Date: 01/06/2024 10:45 At the request of: DORON CAMACHO Procedure: MR knee R T wo con EXAM: MR knee RT wo con HISTORY: Internal Derangement Of Knee COMPARISON: 12/24/2023 TECHNIQUE: MRI image s obtained with multiple sequences. MRI of the right knee without contrast. Sequences obtained by standard department protocol. FINDINGS: Anterior cruciate an d posterior cruciate ligaments are intact. Medial collateral ligament and lateral supporting structures are intact. Advanced degeneratio n of the medial compartment with full-thickness chondral loss and marginal osteophyte formation. Degeneration, macera tion and tearing of the medial meniscal body. Free edge fraying of the media l meniscal posterior horn. Lateral meniscus is intact. Lateral compartment articular cartilage is preserved. Partial-thickness chondral fissuring/irregularity at the patellofemoral compartment. Extensor mechanism i s intact. Intra-articular body of the lateral parapatellar recess measuring 1.5 x 1 cm. (Axial STIR image 4) . Intra-articular body of the posterior aspect of the joint space measuring 1.3 x 0.7 cm (sagittal PD fat-sat image 10). Tricompartmental mar ginal osteophytes Mild subcutaneous so ft tissue edema of the anterior aspect of the knee. No popliteal cyst. Large knee joint effusion. M R/MR knee RT wo con IMPRESSION: 1. Advanced degenera tion of the medial compartment with full-thickness chondral loss and marginal osteophyte formation. 2. Degeneration, maceration and tearing of the medial meniscal body. 3. Large knee joint effusion. 4. Intra-articular b jaki of the lateral parapatellar recess measuring 1.5 x 1 cm. (Axial STIR imag e 4). Intra-articular body of the posterior aspect of the joint space measurin g 1.3 x 0.7 cm (sagittal PD fat-sat image 10). 5. Other findings as described. Electronically authenticated by: JAVIER WHELAN Date: 01/06/2024 10:45 Dictated By: Yandel Whelan M.D. Signed By: 01/06/24 1048 DD/ 1045 TD/TT: Systems Designer: CT abdomen pelvis wo con Reviewed date:05/27/2024 01:06:17 PM Interpretation: Performing Lab: Notes/Report: Source Facility: [place] [address] CT Scan Report Signed Patient: JERRY WILSON MR#: [id number] : 1970 Acct:[id number] Age/Sex: 53 / M ADM Date: 05/26/24 Loc: LAB Attending Dr: Alex Pang M.D. Ordering Physician: Alex Pang M.D. Date of Service: 05/26/24 Procedure(s): CT abdomen pelvis wo/w con Accession Number(s): [id number] cc: Doron Camacho M.D. [place] [address] Patient Name: JERRY WILSON MRN: [id number] date: 1970 Sex: M Assigned Patient Location: LAB Current Patient Location: Accession/Order Number: [id number] Exam Date: 05/26/2024 08:37 Report Date: 05/27/2024 04:57 At the request of: ALEX PANG Procedure: CT abdomen pelvis wo/w con EXAMINATION: CT abdomen pelvis wo/w con HISTORY: Kidney Stones, Gross Hematuria, Right Flank Pain COMPARISON: CT abdomen pelvis 01/29/2023 TECHNIQUE: Axial, Coronal, and Sagittal images were obtained without and/or with IV contrast as indicated by examination type. Dose reduction techniques were achieved by using automated exposure control and/or adjustment of mA and/or kV according to patient size and/or use of iterative reconstruction technique. FINDINGS: LUNG BASES: No visible pulmonary or pleural disease. LIVER: No enlargement, atrophy, suspicious density, or significant focal lesion. BILIARY: No stones, appreciable wall thickening, or abnormal duct dilation. PANCREAS: No lesion, fluid collection, or abnormal duct dilatation. SPLEEN: No enlargement or focal lesion. ADRENALS: No mass or enlargement. KIDNEYS: Right kidney contains a nonobstructing 19 x 10 x 8 mm stone within renal pelvis and a nonobstructing 27 x 18 x 8 mm stone within inferior pole. Left kidney contains a nonobstructing 2 mm stone. Unremarkable ureters. BOWEL/MESENTERY: No visible mass, obstruction, or bowel wall thickening. AORTA/VASCULAR: No aneurysm or dissection. RETROPERITONEUM: No mass or adenopathy. LYMPH NODES: No adenopathy. URINARY BLADDER: No visible focal wall thickening, lesion, or calculus. PELVIC ORGANS: No visible mass. Pelvic organs appropriate for patient age. ABDOMINAL WALL: Tiny periumbilical fat filled hernia without strangulation. BONES: Grade one-2 anterior listhesis of L5 on S1 with prior posterior mechanical fusion. Marked disc space narrowing at this level. OTHER: Negative. CT/CT abdomen pelvis wo/w con IMPRESSION: 1. Bilateral nonobstructing nephrolithiasis; increased compared to prior study. On the right side there is a large stone within the renal pelvis which may contribute patient's symptoms. DIAGNOSIS CODE: #DC 1000: NO ALERT REQUIRED Electronically authenticated by: CRUZ AWAN Date: 05/27/2024 04:57 Dictated By: Cruz Awan M.D. Signed By: 05/27/24 0500 DD/ 0457 TD/TT: Systems Designer: [place] [address] CT Scan Report Signed Patient: JERRY WILSON MR#: [id number] : 1970 Acct:[id number] Age/Sex: 53 / M ADM Date: 05/26/24 Loc: LAB Attending Dr: Oswald Piña Ordering Physician: Alex Pang M.D. Date of Service: 05/26/24 Procedure(s): CT abd omen pelvis wo/w con Accession Number(s): [id number] cc: Doron Camacho M.D. [place] [id number] Patient Name: JERRY WILSON MRN: [id number] date: 1970 Sex: M Assigned Patient Location: LAB Current Patient Location: Accession/Order Numb er: [id number] Exam Date: 05/26/2024 08:37 Report Date: 05/27/2024 04:57 At the request of: ALEX PANG Procedure: CT abdome n pelvis wo/w con EXAMINATION: CT abdo men pelvis wo/w con HISTORY: Kidney Ston es, Gross Hematuria, Right Flank Pain COMPARISON: CT abdom en pelvis 01/29/2023 TECHNIQUE: Axial, Coronal, and Sagittal images were obtained without and/or with IV contrast as indicated by examination type. Dose reduction techniques were achieved by usi ng automated exposure control and/or adjustment of mA and/or kV according to patient size and/or use of iterative reconstruction technique. FINDINGS: LUNG BASES: No visib le pulmonary or pleural disease. LIVER: No enlargemen t, atrophy, suspicious density, or significant focal lesion. BILIARY: No stones, appreciable wall thickening, or abnormal duct dilation. PANCREAS: No lesion, fluid collection, or abnormal duct dilatation. SPLEEN: No enlargeme nt or focal lesion. ADRENALS: No mass or enlargement. KIDNEYS: Right kidne y contains a nonobstructing 19 x 10 x 8 mm stone within renal pelvis and a nonobstructing 27 x 18 x 8 mm stone within inferior pole. Left kidney contains a nonobstructing 2 mm stone. Unremarkable ureters. BOWEL/MESENTERY: No visible mass, obstruction, or bowel wall thickening. AORTA/VASCULAR: No aneurysm or dissection. RETROPERITONEUM: No mass or adenopathy. LYMPH NODES: No adenopathy. URINARY BLADDER: No visible focal wall thickening, lesion, or calculus. PELVIC ORGANS: No vi sible mass. Pelvic organs appropriate for patient age. ABDOMINAL WALL: Tiny periumbilical fat filled hernia without strangulation. BONES: Grade one-2 anterior listhesis of L5 on S1 with prior posterior mechanical fusion. M arked disc space narrowing at this level. OTHER: Negative. C T/CT abdomen pelvis wo/w con IMPRESSION: 1. Bilateral nonobstructing nephrolithiasis; increased compared to prior study. On the right side th ere is a large stone within the renal pelvis which may contribute patient's symptoms. DIAGNOSIS CODE: #DC 1000: NO ALERT REQUIRED Electronically authenticated by: CRUZ AWAN Date: 05/27/2024 04:57 Dictated By: Cruz Awan M.D. Signed By: 05/27/24 0500 DD/ 0457 TD/TT: Systems Designer: Blood Culture 1 Reviewed date:08/24/2024 04:16:09 PM Interpretation: Performing Lab: Notes/Report: RIGHT AC [facility] , Blood Culture 1 See Below For Report Blood Culture 1 NG3D NO GROWTH AT 36-48 HOURS. FINAL TO FOLLOW.^NO GROWTH AT 36-48 HOURS. FINAL TO FOLLOW. Performing Lab: see note [facility] LB Blood Culture 2 Reviewed date:08/28/2024 01:17:56 PM Interpretation: Performing Lab: Notes/Report: LEFT AC IV START [facility] , Blood Culture 2 See Below For Report Blood Culture 2 NG5D NO GROWTH AT 5 DAYS.^NO GROWTH AT 5 DAYS. Performing Lab: see note [facility] Anaerobe Identification Only Reviewed date:08/30/2024 08:11:45 PM Interpretation: Performing Lab: Notes/Report: [facility] , Anaerobe Identification Only See Below For Report Anaerobe Identification Only Anaerobe Identification Only Specimen has been received and testing has been initiated. Anaerobe Identification Only Anaerobe Identification Only Anaerobe Identification Only Anaerobe Identification Only No anaerobes recovered. Anaerobe Identification Only Anaerobe Identification Only Performed at: - [facility] [place] Anaerobe Identification Only Anaerobe Identification Only [address] [place], [place] [id number] Anaerobe Identification Only Anaerobe Identification Only Machine Umbrella Tipper: Dwight Enrique PhD, Phone: [phone] Anaerobe Identification Only Performing Lab: see note - [facility] SEE REPORT - Copying Machine Mechanic Id information not found for OBX-specific food production supervisor legend Troponin I High Sensitivity Reviewed date:08/22/2024 03:42:43 PM Interpretation: Performing Lab: Notes/Report: [facility] , Troponin I High Sensitivity 199.6 4.0-76.1 pg/mL RESULTS CALLED TO MADELEINE MASON AT 1513 CUT-OFF POINTS HAVE BEEN ESTABLISHED BASED ON THE FOURTH UNIVERSAL DEFINITION OF MYOCARDIAL INFARCTION. THE UPPER REFERENCE LIMIT (URL) OF TROPONIN, DEFINED THE 99TH PERCENTILE OF cTnI DISTRIBUTION IN A REFERENCE POPULATION, HAS BEEN CONFIRMED THE DECISION THRESHOLD FOR [place] DIAGNOSIS. 99TH PERCENTILE = 76.2 PG/ML NOTE: HIGH-SENSITIVITY TROPONIN ASSAY IS NOT INTENDED TO BE USED IN ISOLATION BUT SHOULD BE INTERPRETED IN CONJUNCTION WITH OTHER DIAGNOSTIC AND CLINICAL INFORMATION. Performing Lab: see note - [facility] LB LACTATE or LACTIC ACID Reviewed date:08/22/2024 03:42:43 PM Interpretation: Performing Lab: Notes/Report: [facility] , Lactate/Lactic Acid 3.3 0.4-2.0 mmol/L RESULT S CALLED TO MADELEINE MASON AT 1513 Performing Lab: see note ML - [facility] LB Troponin I High Sensitivity Reviewed date:08/22/2024 06:15:26 PM Interpretation: Performing Lab: Notes/Report: [facility] , Troponin I High Sensitivity 186.9 4.0-76.1 pg/mL RESULTS CALLED TO JUAN DOTY RN AT 1727 CUT-OFF POINTS HAVE BEEN ESTABLISHED BASED ON THE FOURTH UNIVERSAL DEFINITION OF MYOCARDIAL INFARCTION. THE UPPER REFERENCE LIMIT (URL) OF TROPONIN, DEFINED THE 99TH PERCENTILE OF cTnI DISTRIBUTION IN A REFERENCE POPULATION, HAS BEEN CONFIRMED THE DECISION THRESHOLD FOR [place] DIAGNOSIS. 99TH PERCENTILE = 76.2 PG/ML NOTE: HIGH-SENSITIVITY TROPONIN ASSAY IS NOT INTENDED TO BE USED IN ISOLATION BUT SHOULD BE INTERPRETED IN CONJUNCTION WITH OTHER DIAGNOSTIC AND CLINICAL INFORMATION. Performing Lab: see note ML - [facility] LB ECG 12 lead Reviewed date:08/23/2024 08:46:32 PM Interpretation: Performing Lab: Notes/Report: Source Facility: [place] [address] [place] [address] Electrocardiograph Report Signed Patient: JERRY WILSON MR#: [id number] : 1970 Acct:[id number] Age/Sex: 53 / M ADM Date: 08/22/24 Loc: MS 224- Attending Dr: Doron Camacho M.D. Ordering Physician: Doron Camacho M.D. Date of Service: 08/22/24 Procedure(s): ECG 12 lead Accession Number(s): [id number] cc: 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 Measurements Intervals [place] Rate: 98 P: 56 MN: 136 QRS: -9 QRSD: 110 T: 49 QT: 378 QTc: 433 Interpretive Statements 1100 Sinus rhythm 9110 normal ECG Compared to ECG 08/22/2024 13:25:07 Sinus tachycardia no longer present Electronically Signed On 08-23-2024 7:38:33 EDT by BO PARTIDA M.D. Dictated By: BO PARTIDA Signed By: 08/23/2438 DD/ 38 TD/TT: Systems Designer: [place] [address] Electrocardiograph Report Signed Patient: JERRY WILSON MR#: [id number] : 1970 Acct:[id number] Age/Sex: 53 / M ADM Date: 08/22/24 Loc: [place] [address]: See Camacho M.D. Ordering Physician: Doron Camacho M.D. Date of Service: 08/22/24 Procedure(s): ECG 12 lead Accession Number(s): [id number] cc: 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 Measurements Intervals [place] Rate: 98 P: 56 MN: 136 QRS: -9 QRSD: 110 T: 49 QT: 378 QTc: 433 Interpretive Statements 1100 Sinus rhythm 9110 normal ECG Compared to ECG 08/22/2024 13:25:07 Sinus tachycardia no longer present Electronically Shreya d On 08-23-2024 7:38:33 EDT by BO PARTIAD M.D. Dictated By: BO PARTIDA Signed By: 08/23/2438 DD/ 38 TD/TT: Systems Designer: Troponin I High Sensitivity Reviewed date:08/23/2024 08:46:32 PM Interpretation: Performing Lab: Notes/Report: [facility] , Troponin I High Sensitivity 181.9 4.0-76.1 pg/mL RESULTS CALLED TO NAYANA RICE RN @BY Hui Ayala at 2025 CUT-OFF POINTS HAVE BEEN ESTABLISHED BASED ON THE FOURTH UNIVERSAL DEFINITION OF MYOCARDIAL INFARCTION. THE UPPER REFERENCE LIMIT (URL) OF TROPONIN, DEFINED THE 99TH PERCENTILE OF cTnI DISTRIBUTION IN A REFERENCE POPULATION, HAS BEEN CONFIRMED THE DECISION THRESHOLD FOR [place] DIAGNOSIS. 99TH PERCENTILE = 76.2 PG/ML NOTE: HIGH-SENSITIVITY TROPONIN ASSAY IS NOT INTENDED TO BE USED IN ISOLATION BUT SHOULD BE INTERPRETED IN CONJUNCTION WITH OTHER DIAGNOSTIC AND CLINICAL INFORMATION. Performing Lab: see note [facility] LACTATE or LACTIC ACID Reviewed date:08/23/2024 08:46:32 PM Interpretation: Performing Lab: Notes/Report: [facility] , Lactate/Lactic Acid 2.9 0.4-2.0 mmol/L RESULTS CALLED TO NAYANA RICE RN @BY Hui Ayala at 2025 Performing Lab: see note [facility] LB E coli Shiga Toxin EIA Reviewed date:08/25/2024 01:10:39 PM Interpretation: Performing Lab: Notes/Report: [facility] , E coli Shiga Toxin EIA See Below For Report E coli Shiga Toxin EIA E coli Shiga Toxin EIA Negative E coli Shiga Toxin EIA E coli Shiga Toxin EIA Performed at: [facility] E coli Shiga Toxin EIA E coli Shiga Toxin EIA [address] [place], [place] [id number] E coli Shiga Toxin EIA E coli Shiga Toxin EIA Machine Umbrella Tipper: Jn Enrique PhD, Phone: [phone] E coli Shiga Toxin EIA Performing Lab: see note LC - [facility] LB SEE REPORT - Copying Machine Mechanic Id information not found for OBX-specific food production supervisor legend Campylobacter Culture Reviewed date:08/28/2024 01:17:56 PM Interpretation: Performing Lab: Notes/Report: [facility] , Campylobacter Culture See Below For Report Campylobacter Culture No Campylobacter species isolated. Performing Lab: see note LC - [facility] LB Occult Blood* Reviewed date:08/23/2024 08:46:32 PM Interpretation: Performing Lab: Notes/Report: [facility] , Occult Blood Positive Performing Lab: see note [facility] LB CA echo limited Reviewed date:08/23/2024 08:46:32 PM Interpretation: Performing Lab: Notes/Report: Source Facility: [place] [id number] Cardiology Report Signed Patient: JERRY WILSON MR#: [id number] : 1970 Acct:[id number] Age/Sex: 53 / M ADM Date: 08/22/24 Loc: MS 224-[address]: Doron Camacho M.D. Ordering Physician: Doron Camacho M.D. Date of Service: 08/23/24 Procedure(s): CA echo limited Accession Number(s): [id number] cc: Doron Camacho M.D. Patient Name: JERRY WILSON MR#: [id number] : 1970 Exam Date: 08/23/2024 Ordering Doctor: DR Doron Camacho . ECHOCARDIOGRAM REPORT PROCEDURE: CA ECHO LIMITED INDICATIONS: NSTEMI COMPARISON: None. DESCRIPTION: Limited ECHOCARDIOGRAM Real-time transthoracic echocardiography with 2D and M-mode performed. QUALITY: Technical quality was good. Limited echocardiogram per physician order. LEFT VENTRICLE: Normal chamber size. Moderate concentric left ventricular hypertrophy. LV EF: Global left ventricular systolic function is normal; visually estimated ejection fraction is 55%. Abnormal septal motion may be related to underlying bundle branch block. LEFT ATRIUM: Normal chamber size. RIGHT ATRIUM: Moderate dilatation. RIGHT VENTRICLE: Poorly seen. Mild dilatation. Systolic function appears reduced. TRICUSPID VALVE: Normal mobility and thickness. MITRAL VALVE: Normal mobility and thickness. There is no mitral annular calcification. AORTIC VALVE: Normal trileaflet appearance. No visible sclerosis. Normal leaflet mobility. AORTIC ROOT: Normal diameter and appearance. Ascending aorta is normal in size. PULMONIC VALVE: Poorly seen. PERICARDIUM: No evidence of pericardial effusion. IVC: IVC is dilated (3.0cm), does not collapse. CONCLUSION: 1. Global left ventricular systolic function is difficult to assess but appears preserved; visually estimated ejection fraction is 55 to 60% 2. The right ventricle is poorly seen; it appears mildly dilated with reduced systolic function 3. Moderate left ventricle hypertrophy 4. The right atrium is dilated A Limited echocardiogram was performed Adult Echocardiography Procedure Report Left Ventricle LVEDD (3.7 - 5.6 cm): 5.13 cm LVESD (2.2 - 4.0 cm): 4.20 cm LVIVS thickness (0.6 - 1.2 cm): 1.60 cm LVPW thickness (0.5 - 1.0 cm): 1.49 cm LVOT Diameter 2.58 cm Left Atrium LA Volume Index (2D A2C): 28.67 ml/m2 Left Atrium Systolic Dimension: 5.02 cm Mitral Valve Right Ventricle Aorta AO Root Diam: 3.30 cm Ascending Ao Diam: 3.10 cm Aortic Valve Tricuspid Valve Pulmonic Valve Right Atrium Right Atrium Systolic Pressure: 76.97 ml, 76.97 ml Dictated by: Marilia Perez M.D. on 08/23/2024 at 14:35 Approved by: Marilia Perez M.D. on 08/23/2024 at 14:38 Dictated By: Marilia Perez M.D. Signed By: 08/23/241438 DD/ 37 TD/TT: Systems Designer: [place] [address] Cardiology Report Signed Patient: JERRY WILSON MR#: [id number] : 1970 Acct:[id number] Age/Sex: 53 / M ADM Date: 08/22/24 Loc: MS 224-[address]: See Camacho M.D. Ordering Physician: Doron Camacho M.D. Date of Service: 08/23/24 Procedure(s): CA ech o limited Accession Number(s): [id number] cc: Doron Camacho M.D. Patient Name: JERRY WILSON MR#: [id number] : 1970 Exam Date: 08/23/2024 Ordering Doctor: DR Doron Camacho . ECHOCARDIOGRAM REPORT PROCEDURE: CA ECHO LIMITED INDICATIONS: NSTEMI COMPARISON: None. DESCRIPTION: Limited ECHOCARDIOGRAM Real-time transthoracic echocardiography wit h 2D and M-mode performed. QUALITY: Technical quality was good. Limited echocardiogram per physician order. LEFT VENTRICLE: Norm al chamber size. Moderate concentric left ventricular hypertrophy. LV EF: Global left ventricular systolic function is normal; visually estimated ejection fraction is 55%. Abnormal septal motion may be related to underlying bundle br anch block. LEFT ATRIUM: Normal chamber size. RIGHT ATRIUM: Modera te dilatation. RIGHT VENTRICLE: Poo rly seen. Mild dilatation. Systolic function appears reduced. TRICUSPID VALVE: Nor mal mobility and thickness. MITRAL VALVE: Normal mobility and thickness. There is no mitral annular calcification. AORTIC VALVE: Normal trileaflet appearance. No visible sclerosis. Normal leaflet mobility. AORTIC ROOT: Normal diameter and appearance. Ascending aorta is normal in size. PULMONIC VALVE: Poor ly seen. PERICARDIUM: No evid ence of pericardial effusion. IVC: IVC is dilated (3.0cm), does not collapse. CONCLUSION: 1. Global left ventricular systolic function is difficult to assess but appears preserved; visually estimated ejection fraction is 55 to 60% 2. The right ventric le is poorly seen; it appears mildly dilated with reduced systolic function 3. Moderate left ventricle hypertrophy 4. The right atrium is dilated A Limited echocardio gram was performed Adult Echocardiograp hy Procedure Report Left Ventricle LVEDD (3.7 - 5.6 cm) : 5.13 cm LVESD (2.2 - 4.0 cm) : 4.20 cm LVIVS thickness (0.6 - 1.2 cm): 1.60 cm LVPW thickness (0.5 - 1.0 cm): 1.49 cm LVOT Diameter 2.58 cm Left Atrium LA Volume Index (2D A2C): 28.67 ml/m2 Left Atrium Systolic Dimension: 5.02 cm Mitral Valve Right Ventricle Aorta AO Root Diam: 3.30 cm Ascending Ao Diam: 3 .10 cm Aortic Valve Tricuspid Valve Pulmonic Valve Right Atrium Right Atrium Systoli c Pressure: 76.97 ml, 76.97 ml Dictated by: Mairlia Perez M.D. on 08/23/2024 at 14:35 Approved by: Marilia Perez M.D. on 08/23/2024 at 14:38 Dictated By: Marilia Perez M.D. Signed By: 08/23/24 1439 DD/ 1438 TD/TT: Systems Designer: NATASHA jon 1V Reviewed date:08/23/2024 08:46:32 PM Interpretation: Performing Lab: Notes/Report: Source Facility: [facility]-[address] [place] [address] [place] [address] XRay Report Signed Patient: JERRY WILSON MR#: [id number] : 1970 Acct:[id number] Age/Sex: 53 / M ADM Date: 08/22/24 Loc: MS 224-[address]: Doron Camacho M.D. Ordering Physician: Doron Camacho M.D. Date of Service: 08/23/24 Procedure(s): XR chest 1V Accession Number(s): [id number] cc: Doron Camacho M.D. [place] [id number] Patient Name: JERRY WILSON MRN: [id number] date: 1970 Sex: M Assigned Patient Location: MS Current Patient Location: MS Accession/Order Number: [id number] Exam Date: 08/23/2024 08:23 Report Date: 08/23/2024 08:30 At the request of: DORON CAMACHO MD Procedure: XR chest 1V PORTABLE AP ERECT CHEST 0750 hours CLINICAL HISTORY: hypoxia COMPARISON: 08/22/2024 Evaluation is slightly limited by large body habitus. The heart is top normal in size. There is continued prominence of the mediastinum and jalyn. There is a prior CT chest 02/29/2020 showing adenopathy. There is no vascular congestion. No focal consolidation is noted. There is no effusion or pneumothorax. The osseous structures are intact. XR/XR chest 1V IMPRESSION: POTENTIAL CONTINUED LYMPHADENOPATHY. NO ACUTE PULMONARY FINDINGS Impression dictated by: Daphne Hutchinson M.D.08/23/2024 8:30 AM Dictation Location: [place] [address] Electronically authenticated by: [id number] Y Date: 08/23/2024 08:30 Dictated By: Daphne Hutchinson M.D. Signed By: 08/23/2432 DD/ 9 TD/TT: Systems Designer: [place] [address] XRay Report Signed Patient: JERRY WILSON MR#: [id number] : 1970 Acct:[id number] Age/Sex: 53 / M ADM Date: 08/22/24 Loc: MS 224-[address]: See Camacho M.D. Ordering Physician: Doron Camacho M.D. Date of Service: 08/23/24 Procedure(s): XR chest 1V Accession Number(s): [id number] cc: Doron Camacho M.D. [place] [address] Patient Name: JERRY WILSON MRN: [id number] date: 1970 Sex: M Assigned Patient Location: MS Current Patient Loca tion: MS Accession/Order Numb er: [id number] Exam Date: 08/23/2024 08:23 Report Date: 08/23/2024 08:30 At the request of: DORON CAMACHO MD Procedure: XR chest 1V PORTABLE AP ERECT CH EST 0750 hours CLINICAL HISTORY: hypoxia COMPARISON: 08/22/2024 Evaluation is slight ly limited by large body habitus. The heart is top normal in size. There is continued prominence of the mediastinum and jalyn. There is a prior CT chest 02/29/2020 showing adenopathy. There is no vascular congestion. No focal consolidation is noted. There is no effusion or pneumothorax. The os seous structures are intact. X R/XR chest 1V IMPRESSION: POTENTIAL CONTINUED LYMPHADENOPATHY. NO ACUTE PULMONARY FINDINGS Impression dictated by: Daphne Hutchinson M.D.08/23/2024 8:30 AM Dictation Location: [place] [address] Electronically authenticated by: [id number] Y Date: 08/23/2024 08:30 Dictated By: Daphne Hutchinson M.D. Signed By: 08/23/24 0832 DD/ 0830 TD/TT: Systems Designer: renal BI Reviewed date:08/23/2024 08:46:32 PM Interpretation: Performing Lab: Notes/Report: Source Facility: [place] [address] [place] [address] Ultrasound Report Signed Patient: JERRY WILSON MR#: [id number] : 1970 Acct:[id number] Age/Sex: 53 / M ADM Date: 08/22/24 Loc: MS 224-[address]: Doron Camacho M.D. Ordering Physician: Doron Camacho M.D. Date of Service: 08/23/24 Procedure(s): US renal BI Accession Number(s): [id number] cc: Doron Camacho M.D. [place] [id number] Patient Name: JERRY WILSON MRN: [id number] date: 1970 Sex: M Assigned Patient Location: MS Current Patient Location: MS Accession/Order Number: [id number] Exam Date: 08/23/2024 09:09 Report Date: 08/23/2024 09:23 At the request of: DORON CAMACHO MD Procedure: US renal BI BILATERAL RENAL AND BLADDER ULTRASOUND CLINICAL HISTORY: JESSY, possible hydronephrosis. Recent right sided stone and stent placement. COMPARISON: CT 08/22/2024 Estimation of renal size is approximately 14.0 cm on the right and 15.8 cm on the left. The right internal ureteral stent is visualized. There is a hyperechoic area within the right kidney measuring over 4 cm in size. This may correlate with the large stone or clustered stones seen on the recent CT exam. No other hydronephrosis is suspected. There might be a parapelvic right renal cyst measuring approximately 2.8 cm in size. There is no perinephric fluid. The urinary bladder contains a Verdin catheter and is not distended for evaluation. US/US renal BI IMPRESSION: RIGHT NEPHROLITHIASIS. NO HYDRONEPHROSIS. VISUALIZATION OF PATIENT'S RIGHT INTERNAL URETERAL STENT Impression dictated by: Daphne Hutchinson M.D.08/23/2024 9:23 AM Dictation Location: [place] [address] Electronically authenticated by: [id number] Y Date: 08/23/2024 09:23 Dictated By: Daphne Hutchinson M.D. Signed By: 08/23/24925 DD/ 2 TD/TT: Systems Designer: [place] [address] Ultrasound Report Signed Patient: JERRY WILSON MR#: [id number] : 1970 Acct:[id number] Age/Sex: 53 / M ADM Date: 08/22/24 Loc: MS 224-[address]: See Camacho M.D. Ordering Physician: Doron Camacho M.D. Date of Service: 08/23/24 Procedure(s): US renal BI Accession Number(s): [id number] cc: Doron Camacho M.D. [place] [id number] Patient Name: JERRY WILSON MRN: [id number] date: 1970 Sex: M Assigned Patient Location: MS Current Patient Loca tion: MS Accession/Order Numb er: [id number] Exam Date: 08/23/2024 09:09 Report Date: 08/23/2024 09:23 At the request of: DORNO CAMACHO MD Procedure: US renal BI BILATERAL RENAL AND BLADDER ULTRASOUND CLINICAL HISTORY: AK I, possible hydronephrosis. Recent right sided stone and stent placement. COMPARISON: CT 08/22/2024 Estimation of renal size is approximately 14.0 cm on the right and 15.8 cm on the left. The right internal ureteral stent is visualized. There is a hyperechoic area wit hin the right kidney measuring over 4 cm in size. This may correlate with t he large stone or clustered stones seen on the recent CT exam. No other hydronephrosis is suspected. There might be a parapelvic right renal cyst measuring approximately 2.8 cm in size. There is no perinephric fluid. The urinary bladder contains a Verdin catheter and is not distended for evaluation. U S/US renal BI IMPRESSION: RIGHT NEPHROLITHIASIS. NO HYDRONEPHROSIS. VISUALIZATION OF PATIENT'S RIGHT INTERNAL URETERAL STENT Impression dictated by: Daphne Hutchinson M.D.08/23/2024 9:23 AM Dictation Location: [place] [address] Electronically authenticated by: [id number] Y Date: 08/23/2024 09:23 Dictated By: Daphne Hutchinson M.D. Signed By: 08/23/24925 DD/ 2 TD/TT: Systems Designer: Troponin I High Sensitivity Reviewed date:08/23/2024 08:46:32 PM Interpretation: Performing Lab: Notes/Report: LINE DRAW [facility] , Troponin I High Sensitivity 811.1 4.0-76.1 pg/mL RESULTS CALLED TO LOU LOPEZ RN CUT-OFF POINTS HAVE BEEN ESTABLISHED BASED ON THE FOURTH UNIVERSAL DEFINITION OF MYOCARDIAL INFARCTION. THE UPPER REFERENCE LIMIT (URL) OF TROPONIN, DEFINED THE 99TH PERCENTILE OF cTnI DISTRIBUTION IN A REFERENCE POPULATION, HAS BEEN CONFIRMED THE DECISION THRESHOLD FOR KS DIAGNOSIS. 99TH PERCENTILE = 76.2 PG/ML NOTE: HIGH-SENSITIVITY TROPONIN ASSAY IS NOT INTENDED TO BE USED IN ISOLATION BUT SHOULD BE INTERPRETED IN CONJUNCTION WITH OTHER DIAGNOSTIC AND CLINICAL INFORMATION. Performing Lab: see note ML - [facility] LB BNP Reviewed date:08/24/2024 01:35:13 PM Interpretation: Performing Lab: Notes/Report: [facility] , NT Pro B Type Natriuretic Pept 508.0 <=900.0 pg/mL Performing Lab: see note ML - [facility] LB CBC AUTO DIFF Reviewed date:08/24/2024 01:35:13 PM Interpretation: Performing Lab: Notes/Report: [facility] , White Blood Count 8.9 4.0-11.0 10 3/uL Red Blood Count 3.53 4.70-6.10 10 6/uL Hemoglobin 10.5 14.0-18.0 g/dL Hematocrit 30.9 42.0-54.0 % Mean Corpuscular Volume 87.5 80.0-94.0 fL Mean Corpuscular Hemoglobin 29.7 25.9-34.0 pg Mean Corpuscular HGB Conc 34.0 29.9-35.2 g/dL Red Cell Distribution Width 13.3 11.0-15.0 % Platelet Count 129 150-450 10 3/uL Mean Platelet Volume 11.9 9.5-13.5 fL Neutrophils Percent Auto 85.3 43.0-75.0 % Lymphocytes Percent Auto 5.7 20.5-60.0 % Monocytes Percent Auto 8.3 1.7-12.0 % Eosinophils Percent Auto 0.0 0.9-7.0 % Basophils Percent Auto 0.1 0.2-2.0 % Immature Granulocytes Pct Auto 0.6 0.0-0.5 % Neutrophils Absolute Auto 7.6 1.4-6.5 10 3/uL Lymphocytes Absolute Auto 0.5 1.2-3.8 10 3/uL Monocytes Absolute Auto 0.7 0.3-0.8 10 3/uL Eosinophils Absolute Auto 0.0 0.0-0.7 10 3/uL Basophils Absolute Auto 0.0 0.0-0.1 10 3/uL Immature Granulocytes Abs Auto 0.05 0.00-0.03 10 3/uL Performing Lab: see note ML - [facility] LB MAGNESIUM Reviewed date:08/24/2024 01:35:13 PM Interpretation: Performing Lab: Notes/Report: [facility] , Magnesium 2.2 1.8-2.4 mg/dL Performing Lab: see note [facility] LB PROF 14(COMP METB) Reviewed date:08/24/2024 01:35:13 PM Interpretation: Performing Lab: Notes/Report: [facility] , Sodium 138 136-145 mmol/L Potassium 3.3 3.5-5.1 mmol/L Chloride 105 98-107 mmol/L Carbon Dioxide 20.9 21.0-32.0 mmol/L Anion Gap 15.4 Glucose 199 74-106 mg/dL Blood Urea Nitrogen 39.0 7.0-18.0 mg/dL Creatinine 1.55 0.70-1.30 mg/dL Estimated GFR ( Stacey 58 >=60 mL/min/1.73m 2 Estimated GFR (Non- Kaycee 48 >=60 mL/min/1.73m 2 BUN Creatinine Ratio 25.2 Calcium 8.6 8.5-10.1 mg/dL Bilirubin Total 0.8 0.2-1.0 mg/dL Aspartate Amino Transferase 88 15-37 U/L Alanine Aminotransferase 58 16-63 U/L Alkaline Phosphatase 54 46-116 U/L Total Protein 6.1 6.4-8.2 g/dL Albumin Level 2.3 3.4-5.0 g/dL Globulin 3.8 Albumin Globulin Ratio 0.6 Performing Lab: see note ML - [facility] LB Troponin I High Sensitivity Reviewed date:08/24/2024 01:35:13 PM Interpretation: Performing Lab: Notes/Report: [facility] , Troponin I High Sensitivity 352.5 4.0-76.1 pg/mL RESULTS CALLED TO KEISHA AIKEN RN @BY Hui Ayala at 0637 CUT-OFF POINTS HAVE BEEN ESTABLISHED BASED ON THE FOURTH UNIVERSAL DEFINITION OF MYOCARDIAL INFARCTION. THE UPPER REFERENCE LIMIT (URL) OF TROPONIN, DEFINED THE 99TH PERCENTILE OF cTnI DISTRIBUTION IN A REFERENCE POPULATION, HAS BEEN CONFIRMED THE DECISION THRESHOLD FOR KS DIAGNOSIS. 99TH PERCENTILE = 76.2 PG/ML NOTE: HIGH-SENSITIVITY TROPONIN ASSAY IS NOT INTENDED TO BE USED IN ISOLATION BUT SHOULD BE INTERPRETED IN CONJUNCTION WITH OTHER DIAGNOSTIC AND CLINICAL INFORMATION. Performing Lab: see note ML - [facility] LB Venous Blood Gas Reviewed date:08/24/2024 01:35:13 PM Interpretation: Performing Lab: Notes/Report: [facility] , pH VBG 7.382 7.330-7.430 PCO2 VBG 34.7 40.0-52.0 mmHg Performing Lab: see note ML - [facility] LB BNP Reviewed date:08/25/2024 09:54:11 AM Interpretation: Performing Lab: Notes/Report: [facility] , NT Pro B Type Natriuretic Pept 196.0 <=900.0 pg/mL Performing Lab: see note ML - [facility] LB PROF 14(COMP METB) Reviewed date:08/25/2024 09:54:11 AM Interpretation: Performing Lab: Notes/Report: [facility] , Sodium 138 136-145 mmol/L Potassium 3.2 3.5-5.1 mmol/L Chloride 103 98-107 mmol/L Carbon Dioxide 25.3 21.0-32.0 mmol/L Anion Gap 12.9 Glucose 175 74-106 mg/dL Blood Urea Nitrogen 30.0 7.0-18.0 mg/dL Creatinine 1.28 0.70-1.30 mg/dL Estimated GFR ( Stacey >60 >=60 mL/min/1.73m 2 Estimated GFR (Non- Kaycee 59 >=60 mL/min/1.73m 2 BUN Creatinine Ratio 23.4 Calcium 9.1 8.5-10.1 mg/dL Bilirubin Total 1.2 0.2-1.0 mg/dL Aspartate Amino Transferase 62 15-37 U/L Alanine Aminotransferase 59 16-63 U/L Alkaline Phosphatase 67 46-116 U/L Total Protein 6.6 6.4-8.2 g/dL Albumin Level 2.5 3.4-5.0 g/dL Globulin 4.1 Albumin Globulin Ratio 0.6 Performing Lab: see note ML - [facility] LB Troponin I High Sensitivity Reviewed date:08/25/2024 09:54:11 AM Interpretation: Performing Lab: Notes/Report: [facility] , Troponin I High Sensitivity 212.0 4.0-76.1 pg/mL RESULTS CALLED TO fredy glover rn CUT-OFF POINTS HAVE BEEN ESTABLISHED BASED ON THE FOURTH UNIVERSAL DEFINITION OF MYOCARDIAL INFARCTION. THE UPPER REFERENCE LIMIT (URL) OF TROPONIN, DEFINED THE 99TH PERCENTILE OF cTnI DISTRIBUTION IN A REFERENCE POPULATION, HAS BEEN CONFIRMED THE DECISION THRESHOLD FOR KS DIAGNOSIS. 99TH PERCENTILE = 76.2 PG/ML NOTE: HIGH-SENSITIVITY TROPONIN ASSAY IS NOT INTENDED TO BE USED IN ISOLATION BUT SHOULD BE INTERPRETED IN CONJUNCTION WITH OTHER DIAGNOSTIC AND CLINICAL INFORMATION. Performing Lab: see note ML - [facility] LB NM dolly perf SPECT rest str Reviewed date:09/15/2024 08:00:30 PM Interpretation: Performing Lab: Notes/Report: Source Facility: [facility]-[address] [place] [address] [place] [address] Nuclear Medicine Report Signed Patient: JERRY WILSON MR#: [id number] : 1970 Acct:[id number] Age/Sex: 53 / M ADM Date: 09/14/24 Loc: CARD Attending Dr: Doron Camacho M.D. Ordering Physician: Doron Camacho M.D. Date of Service: 09/14/24 Procedure(s): NM dolly perf SPECT rest str Accession Number(s): [id number] cc: Doron Camacho M.D. Patient Name: JERRY WILSON MR#: [id number] : 1970 Exam Date: 09/14/2024 Ordering Doctor: DR DORON CAMACHO . RADIOLOGY REPORT PROCEDURE: NM DOLLY PERF SPECT REST STR COMPARISON: None. INDICATIONS: NSTEMI, DYSPNEA TECHNIQUE: Exam Description: Stress/Rest two day protocol gated SPECT Rest Imagin.5 mCi Tc-99m Cardiolite IV on 09/15/2024 Stress Imaging 25.6 mCi Tc-99m Cardiolite IV on 09/14/2024 Exercise Protocol: 0.4 mg Lexiscan given IV Heart Rate (bpm): Rest: 80 Max: 144 PMHR: 85 Blood Pressure: Rest: 168/90 Max: 210/98 Symptoms: Rest and peak stress ECG findings were pending and the exercise portion of the study was pending per attending physician [facility] . For more details please see separate cardiac stress test report. FINDINGS: QUALITY OF STUDY: Good PERFUSION DEFECT: LOCATION: Inferolateral SIZE: Small SEVERITY: Mild TYPE: Reversible WALL MOTION: LV SIZE: 151 mL. TID / TCD: 0.8 LVEF: Calculated EF 67%. SUMMARY: Abnormal Myocardial perfusion imaging study CONCLUSION: Positive nuclear stress images for ischemia, small inferolateral ischemia Normal left ventricle systolic function, EF 67% No transient ischemic dilatation, TID 0.8 EKG stress result is reported separately Dictated by: Mishel Mcgee MD on 09/15/2024 at 18:43 Approved by: Mishel Mcgee MD on 09/15/2024 at 18:49 Dictated By: Mishel Mcgee M.D. Signed By: 09/15/241849 DD/ 184 TD/TT: Systems Designer: [place] [address] Nuclear Medicine Report Signed Patient: JERRY WILSON MR#: [id number] : 1970 Acct:[id number] Age/Sex: 53 / M ADM Date: 09/14/24 Loc: CARD Attending Dr: See Camacho M.D. Ordering Physician: Doron Camacho M.D. Date of Service: 09/14/24 Procedure(s): NM dolly perf SPECT rest str Accession Number(s): [id number] cc: Doron Camacho M.D. Patient Name: JERRY WILSON MR#: [id number] : 1970 Exam Date: 09/14/2024 Ordering Doctor: DR DORON CAMACHO . RADIOLOGY REPORT PROCEDURE: NM DOLLY PE RF SPECT REST STR COMPARISON: None. INDICATIONS: NSTEMI, DYSPNEA TECHNIQUE: Exam Description: Stress/Rest two day protocol gated SPECT Rest Imagin.5 m Ci Tc-99m Cardiolite IV on 09/15/2024 Stress Imaging 25.6 mCi Tc-99m Cardiolite IV on 09/14/2024 Exercise Protocol: 0 .4 mg Lexiscan given IV Heart Rate (bpm): Re st: 80 Max: 144 PMHR: 85 Blood Pressure: Rest : 168/90 Max: 210/98 Symptoms: Rest and peak stress ECG findings were pending and the exercise portion of the study was pending pe r attending physician [facility] . For more details please see separate cardiac str ess test report. FINDINGS: QUALITY OF STUDY: Good PERFUSION DEFECT: LOCATION: Inferolateral SIZE: Small SEVERITY: Mild TYPE: Reversible WALL MOTION: LV SIZE: 151 mL. TID / TCD: 0.8 LVEF: Calculated EF 67%. SUMMARY: Abnormal Myocardial perfusion imaging study CONCLUSION: Positive nuclear str ess images for ischemia, small inferolateral ischemia Normal left ventricl e systolic function, EF 67% No transient ischemi c dilatation, TID 0.8 EKG stress result is reported separately Dictated by: Mishel Mcgee MD on 09/15/2024 at 18:43 Approved by: Mishel Mcgee MD on 09/15/2024 at 18:49 Dictated By: Mishel Mcgee M.D. Signed By: 09/15/241849 DD/ 48 TD/TT: Systems Designer: CBC AUTO DIFF Reviewed date:09/27/2024 07:01:32 PM Interpretation: Performing Lab: Notes/Report: [facility] , White Blood Count 5.7 4.0-11.0 10 3/uL Red Blood Count 4.73 4.70-6.10 10 6/uL Hemoglobin 14.0 14.0-18.0 g/dL Hematocrit 40.8 42.0-54.0 % Mean Corpuscular Volume 86.3 80.0-94.0 fL Mean Corpuscular Hemoglobin 29.6 25.9-34.0 pg Mean Corpuscular HGB Conc 34.3 29.9-35.2 g/dL Red Cell Distribution Width 12.8 11.0-15.0 % Platelet Count 224 150-450 10 3/uL Mean Platelet Volume 10.7 9.5-13.5 fL Neutrophils Percent Auto 65.0 43.0-75.0 % Lymphocytes Percent Auto 20.4 20.5-60.0 % Monocytes Percent Auto 10.1 1.7-12.0 % Eosinophils Percent Auto 3.4 0.9-7.0 % Basophils Percent Auto 0.7 0.2-2.0 % Immature Granulocytes Pct Auto 0.4 0.0-0.5 % Neutrophils Absolute Auto 3.7 1.4-6.5 10 3/uL Lymphocytes Absolute Auto 1.2 1.2-3.8 10 3/uL Monocytes Absolute Auto 0.6 0.3-0.8 10 3/uL Eosinophils Absolute Auto 0.2 0.0-0.7 10 3/uL Basophils Absolute Auto 0.0 0.0-0.1 10 3/uL Immature Granulocytes Abs Auto 0.02 0.00-0.03 10 3/uL Performing Lab: see note - [facility] PROF CHEM 8 (BAS METB) Reviewed date:09/27/2024 07:01:32 PM Interpretation: Performing Lab: Notes/Report: [facility] , Sodium 138 136-145 mmol/L Potassium 3.9 3.5-5.1 mmol/L Chloride 103 98-107 mmol/L Carbon Dioxide 22.4 21.0-32.0 mmol/L Anion Gap 16.5 Glucose 129 74-106 mg/dL Blood Urea Nitrogen 17.0 7.0-18.0 mg/dL Creatinine 1.21 0.70-1.30 mg/dL Estimated GFR ( Stacey >60 >=60 mL/min/1.73m 2 Estimated GFR (Non- Kaycee >60 >=60 mL/min/1.73m 2 BUN Creatinine Ratio 14.0 Calcium 9.7 8.5-10.1 mg/dL Performing Lab: see note ML - [facility] LB US extremity nonvascular LT Reviewed date:10/24/2024 12:43:14 PM Interpretation: Performing Lab: Notes/Report: Source Facility: [facility]-[address] [place] [address] [place] [address] Ultrasound Report Signed Patient: JERRY WILSON MR#: [id number] : 1970 Acct:[id number] Age/Sex: 54 / M ADM Date: 10/23/24 Loc: US Attending Dr: Doron Camacho M.D. Ordering Physician: Doron Camacho M.D. Date of Service: 10/23/24 Procedure(s): US extremity nonvascular RT Accession Number(s): [id number] cc: Doron Camacho M.D. [address] [address] Patient Name: JERRY WILSON MRN: [facility]:[id number] date: 1970 Sex: M Assigned Patient Location: US Current Patient Location: US Accession/Order Number: [id number] Exam Date: 10/23/2024 10:36 Report Date: 10/23/2024 10:37 At the request of: DORON CAMACHO MD Procedure: US extremity nonvascular RT The right axillary ultrasound HISTORY: Lump felt in the right axillary region one month ago. No lymphadenopathy. No solid lesion or fluid collection. US/US extremity nonvascular RT IMPRESSION: No focal abnormality. Impression dictated by: Manuel Velazquez M.D. 10/23/2024 10:37 AM Dictation Location: [place] [address] Electronically authenticated by: [id number] Date: 10/23/2024 10:37 Dictated By: Manuel Velazquez D.O. Signed By: 10/23/24 1040 DD/ 1037 TD/TT: Systems Designer: [place] [address] Ultrasound Report Signed Patient: JERRY WILSON MR#: [id number] : 1970 Acct:[id number] Age/Sex: 54 / M ADM Date: 10/23/24 Loc: US Attending Dr: See Camacho M.D. Ordering Physician: Doron Camacho M.D. Date of Service: 10/23/24 Procedure(s): US extremity nonvascular RT Accession Number(s): [id number] cc: Doron Camacho M.D. [address] [address] Patient Name: JERRY WILSON MRN: [facility]:[id number] date: 1970 Sex: M Assigned Patient Location: US Current Patient Loca tion: US Accession/Order Numb er: [id number] Exam Date: 10/23/2024 10:36 Report Date: 10/23/2024 10:37 At the request of: DORON CAMACHO MD Procedure: US extrem ity nonvascular RT The right axillary ultrasound HISTORY: Lump felt i n the right axillary region one month ago. No lymphadenopathy. No solid lesion or fluid collection. U S/US extremity nonvascular RT IMPRESSION: No focal abnormality. Impression dictated by: Manuel Velazquez M.D. 10/23/2024 10:37 AM Dictation Location: [place] [address] Electronically authenticated by: [id number] Y Date: 10/23/2024 10:37 Dictated By: Rangel Velazquez D.O. Signed By: 10/23/24 1040 DD/ 1037 TD/TT: Systems Designer: E coli Shiga Toxin EIA Reviewed date:08/28/2024 01:17:56 PM Interpretation: Performing Lab: Notes/Report: [facility] , E coli Shiga Toxin EIA See Below For Report E coli Shiga Toxin EIA E coli Shiga Toxin EIA Negative E coli Shiga Toxin EIA E coli Shiga Toxin EIA Performed at: [facility] E coli Shiga Toxin EIA E coli Shiga Toxin EIA [address] [place], [place] [id number] E coli Shiga Toxin EIA E coli Shiga Toxin EIA Machine Umbrella Tipper: Jn Enrique PhD, Phone: [phone] E coli Shiga Toxin EIA Performing Lab: see note - [facility] LB SEE REPORT - Copying Machine Mechanic Id information not found for OBX-specific food production supervisor legend Troponin I High Sensitivity Reviewed date:08/23/2024 08:46:32 PM Interpretation: Performing Lab: Notes/Report: [facility] , Troponin I High Sensitivity 728.3 4.0-76.1 pg/mL RESULTS CALLED TO LOU LOPEZ RN CUT-OFF POINTS HAVE BEEN ESTABLISHED BASED ON THE FOURTH UNIVERSAL DEFINITION OF MYOCARDIAL INFARCTION. THE UPPER REFERENCE LIMIT (URL) OF TROPONIN, DEFINED THE 99TH PERCENTILE OF cTnI DISTRIBUTION IN A REFERENCE POPULATION, HAS BEEN CONFIRMED THE DECISION THRESHOLD FOR [place] DIAGNOSIS. 99TH PERCENTILE = 76.2 PG/ML NOTE: HIGH-SENSITIVITY TROPONIN ASSAY IS NOT INTENDED TO BE USED IN ISOLATION BUT SHOULD BE INTERPRETED IN CONJUNCTION WITH OTHER DIAGNOSTIC AND CLINICAL INFORMATION. Performing Lab: see note ML - [facility] LB BNP Reviewed date:08/23/2024 08:46:32 PM Interpretation: Performing Lab: Notes/Report: [facility] , NT Pro B Type Natriuretic Pept 1328.0 <=900.0 pg/mL RESULTS CALLED TO Lou Lopez RN Performing Lab: see note ML - [facility] LB Troponin I High Sensitivity Reviewed date:08/23/2024 08:46:32 PM Interpretation: Performing Lab: Notes/Report: [facility] , Troponin I High Sensitivity 735.8 4.0-76.1 pg/mL RESULTS CALLED TO Lou Lopez RN CUT-OFF POINTS HAVE BEEN ESTABLISHED BASED ON THE FOURTH UNIVERSAL DEFINITION OF MYOCARDIAL INFARCTION. THE UPPER REFERENCE LIMIT (URL) OF TROPONIN, DEFINED THE 99TH PERCENTILE OF cTnI DISTRIBUTION IN A REFERENCE POPULATION, HAS BEEN CONFIRMED THE DECISION THRESHOLD FOR [place] DIAGNOSIS. 99TH PERCENTILE = 76.2 PG/ML NOTE: HIGH-SENSITIVITY TROPONIN ASSAY IS NOT INTENDED TO BE USED IN ISOLATION BUT SHOULD BE INTERPRETED IN CONJUNCTION WITH OTHER DIAGNOSTIC AND CLINICAL INFORMATION. Performing Lab: see note ML - [facility] LB PROF 14(COMP METB) Reviewed date:08/23/2024 08:46:32 PM Interpretation: Performing Lab: Notes/Report: [facility] , Sodium 135 136-145 mmol/L Potassium 3.6 3.5-5.1 mmol/L Chloride 98 98-107 mmol/L Carbon Dioxide 20.7 21.0-32.0 mmol/L Anion Gap 19.9 Glucose 272 74-106 mg/dL Blood Urea Nitrogen 40.0 7.0-18.0 mg/dL Creatinine 2.59 0.70-1.30 mg/dL Estimated GFR ( Stacey 32 >=60 mL/min/1.73m 2 Estimated GFR (Non- Kaycee 26 >=60 mL/min/1.73m 2 BUN Creatinine Ratio 15.4 Calcium 8.6 8.5-10.1 mg/dL Bilirubin Total 1.4 0.2-1.0 mg/dL Aspartate Amino Transferase 124 15-37 U/L Alanine Aminotransferase 70 16-63 U/L Alkaline Phosphatase 61 46-116 U/L Total Protein 6.4 6.4-8.2 g/dL Albumin Level 2.6 3.4-5.0 g/dL Globulin 3.8 Albumin Globulin Ratio 0.7 Performing Lab: see note ML - [facility] LB XR chest 1V Reviewed date:08/23/2024 08:46:32 PM Interpretation: Performing Lab: Notes/Report: Source Facility: [place] [address] [place] [address] XRay Report Signed Patient: JERRY WILSON MR#: [id number] : 1970 Acct:[id number] Age/Sex: 53 / M ADM Date: 08/22/24 Loc: [place] 224-[address]: Doron Camacho M.D. Ordering Physician: Doron Camacho M.D. Date of Service: 08/23/24 Procedure(s): XR chest 1V Accession Number(s): [id number] cc: Doron Camacho M.D. [place] [address] Patient Name: JERRY WILSON MRN: [id number] date: 1970 Sex: M Assigned Patient Location: [place] Current Patient Location: [place] Accession/Order Number: [id number] Exam Date: 08/23/2024 10:24 Report Date: 08/23/2024 10:25 At the request of: DORON CAMACHO MD Procedure: XR chest 1V PA CHEST: CLINICAL HISTORY: picc placement COMPARISON: 08/23/2024 There is a new right-sided PICC line with tip overlying the distal superior vena cava. No developing consolidation, pleural effusion or pneumothorax is noted. The cardiac and mediastinal contours are similar. The bony structures are intact. XR/XR chest 1V IMPRESSION: PICC LINE PLACEMENT, DESCRIBED. NO ACUTE FINDINGS OR CHANGE FROM THE PRIOR. Impression dictated by: Daphne Hutchinson M.D.08/23/2024 10:25 AM Dictation Location: [place] [address] Electronically authenticated by: [id number] Y Date: 08/23/2024 10:25 Dictated By: Daphne Hutchinson M.D. Signed By: 08/23/24 1028 DD/ 102 TD/TT: Systems Designer: [place] [address] XRay Report Signed Patient: JERRY WILSON MR#: [id number] : 1970 Acct:[id number] Age/Sex: 53 / M ADM Date: 08/22/24 Loc: MS 224-[address]: See Camacho M.D. Ordering Physician: Doron Camacho M.D. Date of Service: 08/23/24 Procedure(s): XR chest 1V Accession Number(s): [id number] cc: Doron Camacho M.D. [place] [address] Patient Name: JERRY WILSON MRN: [id number] date: 1970 Sex: M Assigned Patient Location: MS Current Patient Loca tion: MS Accession/Order Numb er: [id number] Exam Date: 08/23/2024 10:24 Report Date: 08/23/2024 10:25 At the request of: DORON CAMACHO MD Procedure: XR chest 1V PA CHEST: CLINICAL HISTORY: pi cc placement COMPARISON: 08/23/2024 There is a new right-sided PICC line with tip overlying the distal superior vena cava. No develo ping consolidation, pleural effusion or pneumothorax is noted. The cardiac a nd mediastinal contours are similar. The bony structures are intact. X R/XR chest 1V IMPRESSION: PICC LINE PLACEMENT, DESCRIBED. NO ACUTE FINDINGS OR CHANGE FROM THE PRIOR. Impression dictated by: Daphne Hutchinson M.D.08/23/2024 10:25 AM Dictation Location: [place] [address] Electronically authenticated by: [id number] Y Date: 08/23/2024 10:25 Dictated By: Daphne Hutchinson M.D. Signed By: 08/23/24 1028 DD/ 1025 TD/TT: Systems Designer: Venous Blood Gas Reviewed date:08/23/2024 08:46:32 PM Interpretation: Performing Lab: Notes/Report: [facility] , pH VBG 7.357 7.330-7.430 PCO2 VBG 34.8 40.0-52.0 mmHg Performing Lab: see note ML - [facility] LB Salmonella/Shigella Screen Reviewed date:08/28/2024 01:17:56 PM Interpretation: Performing Lab: Notes/Report: [facility] , Salmonella/Shigella Screen See Below For Report Salmonella/Shigella Screen Salmonella/Shigella Screen No Salmonella or Shigella recovered. Salmonella/Shigella Screen Performing Lab: see note LC - [facility] LB Troponin I High Sensitivity Reviewed date:08/23/2024 08:46:32 PM Interpretation: Performing Lab: Notes/Report: [facility] , Troponin I High Sensitivity 213.0 4.0-76.1 pg/mL RESULTS CALLED TO Nayana Rice RN CUT-OFF POINTS HAVE BEEN ESTABLISHED BASED ON THE FOURTH UNIVERSAL DEFINITION OF MYOCARDIAL INFARCTION. THE UPPER REFERENCE LIMIT (URL) OF TROPONIN, DEFINED THE 99TH PERCENTILE OF cTnI DISTRIBUTION IN A REFERENCE POPULATION, HAS BEEN CONFIRMED THE DECISION THRESHOLD FOR [place] DIAGNOSIS. 99TH PERCENTILE = 76.2 PG/ML NOTE: HIGH-SENSITIVITY TROPONIN ASSAY IS NOT INTENDED TO BE USED IN ISOLATION BUT SHOULD BE INTERPRETED IN CONJUNCTION WITH OTHER DIAGNOSTIC AND CLINICAL INFORMATION. Performing Lab: see note ML - [facility] LB Prothrombin Time INR Reviewed date:08/23/2024 08:46:32 PM Interpretation: Performing Lab: Notes/Report: [facility] , Prothrombin Time 11.1 9.0-11.6 sec INR 1.05 DESIRED INR: 2.0-3.0 CONDITIONS NOT LISTED BELOW 2.5-3.5 FOR PROSTHETIC HEART VALVE REPLACEMENT 2.5-3.5 RECURRENT THROMBOSIS Performing Lab: see note ML - [facility] LB PTT Reviewed date:08/23/2024 08:46:32 PM Interpretation: Performing Lab: Notes/Report: [facility] , Partial Thromboplastin Time 32.5 22.3-36.2 sec Performing Lab: see note - [facility] LB PROF 14(COMP METB) Reviewed date:08/23/2024 08:46:32 PM Interpretation: Performing Lab: Notes/Report: [facility] , Sodium 133 136-145 mmol/L Potassium 4.0 3.5-5.1 mmol/L Chloride 98 98-107 mmol/L Carbon Dioxide 19.4 21.0-32.0 mmol/L Anion Gap 19.6 Glucose 226 74-106 mg/dL Blood Urea Nitrogen 41.0 7.0-18.0 mg/dL Creatinine 3.37 0.70-1.30 mg/dL Estimated GFR ( Stacey 24 >=60 mL/min/1.73m 2 Estimated GFR (Non- Kaycee 19 >=60 mL/min/1.73m 2 BUN Creatinine Ratio 12.2 Calcium 8.7 8.5-10.1 mg/dL Bilirubin Total 1.7 0.2-1.0 mg/dL Aspartate Amino Transferase 135 15-37 U/L Alanine Aminotransferase 60 16-63 U/L Alkaline Phosphatase 59 46-116 U/L Total Protein 6.8 6.4-8.2 g/dL Albumin Level 3.1 3.4-5.0 g/dL Globulin 3.7 Albumin Globulin Ratio 0.8 Performing Lab: see note ML - [facility] LB MAGNESIUM Reviewed date:08/23/2024 08:46:32 PM Interpretation: Performing Lab: Notes/Report: [facility] , Magnesium 2.0 1.8-2.4 mg/dL Performing Lab: see note ML - [facility] LB CBC AUTO DIFF Reviewed date:08/23/2024 08:46:32 PM Interpretation: Performing Lab: Notes/Report: [facility] , White Blood Count 11.9 4.0-11.0 10 3/uL Red Blood Count 4.15 4.70-6.10 10 6/uL Hemoglobin 12.2 14.0-18.0 g/dL Hematocrit 35.9 42.0-54.0 % Mean Corpuscular Volume 86.5 80.0-94.0 fL Mean Corpuscular Hemoglobin 29.4 25.9-34.0 pg Mean Corpuscular HGB Conc 34.0 29.9-35.2 g/dL Red Cell Distribution Width 13.1 11.0-15.0 % Platelet Count 117 150-450 10 3/uL Mean Platelet Volume 11.8 9.5-13.5 fL Neutrophils Percent Auto 79.9 43.0-75.0 % Lymphocytes Percent Auto 4.1 20.5-60.0 % Monocytes Percent Auto 11.0 1.7-12.0 % Eosinophils Percent Auto 3.7 0.9-7.0 % Basophils Percent Auto 0.3 0.2-2.0 % Immature Granulocytes Pct Auto 1.0 0.0-0.5 % Neutrophils Absolute Auto 9.5 1.4-6.5 10 3/uL Lymphocytes Absolute Auto 0.5 1.2-3.8 10 3/uL Monocytes Absolute Auto 1.3 0.3-0.8 10 3/uL Eosinophils Absolute Auto 0.4 0.0-0.7 10 3/uL Basophils Absolute Auto 0.0 0.0-0.1 10 3/uL Immature Granulocytes Abs Auto 0.12 0.00-0.03 10 3/uL Performing Lab: see note ML - [facility] LB BNP Reviewed date:08/23/2024 08:46:32 PM Interpretation: Performing Lab: Notes/Report: [facility] , NT Pro B Type Natriuretic Pept 4142.0 <=900.0 pg/mL RESULTS CALLED TO Nayana Rice RN Performing Lab: see note ML - [facility] LB ECG 12 lead Reviewed date:08/23/2024 08:46:32 PM Interpretation: Performing Lab: Notes/Report: Source Facility: [facility]-[address] [place] [address] [place] [address] Electrocardiograph Report Signed Patient: JERRY WILSON MR#: [id number] : 1970 Acct:[id number] Age/Sex: 53 / M ADM Date: 08/22/24 Loc: MS 224-[address]: Doron Camacho M.D. Ordering Physician: Manuel Conklin Date of Service: 08/22/24 Procedure(s): ECG 12 lead Accession Number(s): [id number] cc: 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 Measurements Intervals [place] Rate: 104 P: 53 MN: 132 QRS: 24 QRSD: 108 T: 52 QT: 358 QTc: 418 Interpretive Statements 1120 Sinus tachycardia 2440 Incomplete right bundle branch block abnormal ECG Compared to ECG 08/22/2024 12:13:46 Indeterminate axis no longer present Heart rate has decreased Electronically Signed On 08-23-2024 20:18:12 EDT by BO PARTIDA M.D. Dictated By: BO PARTIDA Signed By: 08/23/242017 DD/ 1325 TD/TT: Systems Designer: [place] [address] Electrocardiograph Report Signed Patient: JERRY WILSON MR#: [id number] : 1970 Acct:[id number] Age/Sex: 53 / M ADM Date: 08/22/24 Loc: MS 224-[address]: See Camacho M.D. Ordering Physician: Manuel Conklin Date of Service: 08/22/24 Procedure(s): ECG 12 lead Accession Number(s): [id number] cc: 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 Measurements Intervals [place] Rate: 104 P: 53 MN: 132 QRS: 24 QRSD: 108 T: 52 QT: 358 QTc: 418 Interpretive Statements 1120 Sinus tachycardia 2440 Incomplete righ t bundle branch block abnormal ECG Compared to ECG 08/22/2024 12:13:46 Indeterminate axis n o longer present Heart rate has decreased Electronically Shreya d On 08-23-2024 20:18:12 EDT by BO PARTIDA M.D. Dictated By: BO PARTIDA Signed By: 08/23/242017 DD/ 1325 TD/TT: Systems Designer: ECG 12 lead Reviewed date:08/23/2024 08:46:32 PM Interpretation: Performing Lab: Notes/Report: Source Facility: [place] [address] [place] [address] Electrocardiograph Report Signed Patient: JERRY WILSON MR#: [id number] : 1970 Acct:[id number] Age/Sex: 53 / M ADM Date: 08/22/24 Loc: MS 224-[address]: Doron Camacho M.D. Ordering Physician: Manuel Conklin Date of Service: 08/22/24 Procedure(s): ECG 12 lead Accession Number(s): [id number] cc: 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 Measurements Intervals [place] Rate: 165 P: -61123 MN: -51528 QRS: 250 QRSD: 92 T: 52 QT: 352 QTc: 443 Interpretive Statements Sinus tachycardia 2440 Incomplete right bundle branch block 7300 Indeterminate axis 9140 abnormal rhythm ECG Compared to ECG 09/13/2022 12:16:17 Heart rate has increased Electronically Signed On 08-23-2024 20:17:43 EDT by BO PARTIDA M.D. Dictated By: BO PARTIDA Signed By: 08/23/242017 DD/ TD/TT: Systems Designer: [place] [address] Electrocardiograph Report Signed Patient: JERRY WILSON MR#: [id number] : 1970 Acct:[id number] Age/Sex: 53 / M ADM Date: 08/22/24 Loc: MS 224-[address]: See Camacho M.D. Ordering Physician: Manuel Conklin Date of Service: 08/22/24 Procedure(s): ECG 12 lead Accession Number(s): [id number] cc: 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 Measurements Intervals [place] Rate: 165 P: -32548 MN: -36820 QRS: 250 QRSD: 92 T: 52 QT: 352 QTc: 443 Interpretive Statements Sinus tachycardia 2440 Incomplete righ t bundle branch block 7300 Indeterminate axis 9140 abnormal rhy thm ECG Compared to ECG 09/13/2022 12:16:17 Heart rate has increased Electronically Shreya d On 08-23-2024 20:17:43 EDT by BO PARTIDA M.D. Dictated By: BO PARTIDA Signed By: 08/23/242017 DD/ 121 TD/TT: Systems Designer: Urine Culture - [facility] Reviewed date:08/26/2024 09:18:45 PM Interpretation: Performing Lab: Notes/Report: [facility] , Urine Culture - [facility] See Below For Report Urine Culture - [facility] Testing performed at [facility] O:ENTFAC Isolated Urine Culture - [facility] [place] Count Organism: 1.1 Antibiotic Interpretation ALAINA Status Urine Culture - [facility] [address] [place] [address] Urine Culture - [facility] Testing performed at [facility] O:ENTFAC Isolated Urine Culture - [facility] [place] Count Organism: 1.1 Antibiotic Interpretation ALAINA Status Urine Culture - [facility] See Below For Report Urine Culture - [facility] Testing performed at [facility] O:ENTFAC Isolated Urine Culture - [facility] [place] Count Organism: 1.1 Antibiotic Interpretation ALAINA Status Urine Culture - [facility] See Below For Report Urine Culture - [facility] Testing performed at [facility] O:ENTFAC Isolated Urine Culture - [facility] [place] Count Organism: 1.1 Antibiotic Interpretation ALAINA Status Urine Culture - [facility] >100,000 Urine Culture - [facility] Testing performed at [facility] O:ENTFAC Isolated Urine Culture - [facility] [place] Count Organism: 1.1 Antibiotic Interpretation ALAINA Status Urine Culture - [facility] See Below For Report Urine Culture - [facility] Testing performed at [facility] O:ENTFAC Isolated Urine Culture - [facility] [place] Count Organism: 1.1 Antibiotic Interpretation ALAINA Status Urine Culture - [facility] Ampicillin S F Urine Culture - [facility] Testing performed at [facility] O:ENTFAC Isolated Urine Culture - [facility] [place] Count Organism: 1.1 Antibiotic Interpretation ALAINA Status Urine Culture - [facility] Daptomycin S F Urine Culture - [facility] Testing performed at [facility] O:ENTFAC Isolated Urine Culture - [facility] [place] Count Organism: 1.1 Antibiotic Interpretation ALAINA Status Urine Culture - [facility] Levofloxacin S F Urine Culture - [facility] Testing performed at [facility] O:ENTFAC Isolated Urine Culture - [facility] [place] Count Organism: 1.1 Antibiotic Interpretation ALAINA Status Urine Culture - [facility] Linezolid S F Urine Culture - [facility] Testing performed at [facility] O:ENTFAC Isolated Urine Culture - [facility] [place] Count Organism: 1.1 Antibiotic Interpretation ALAINA Status Urine Culture - [facility] Nitrofurantoin S F Urine Culture - [facility] Testing performed at [facility] O:ENTFAC Isolated Urine Culture - [facility] [place] Count Organism: 1.1 Antibiotic Interpretation ALAINA Status Urine Culture - [facility] Penicillin S F Urine Culture - [facility] Testing performed at [facility] O:ENTFAC Isolated Urine Culture - [facility] [place] Count Organism: 1.1 Antibiotic Interpretation ALAINA Status Urine Culture - [facility] Tetracycline S F Urine Culture - [facility] Testing performed at [facility] O:ENTFAC Isolated Urine Culture - [facility] [place] Count Organism: 1.1 Antibiotic Interpretation ALAINA Status Urine Culture - [facility] Vancomycin S F Urine Culture - [facility] Testing performed at [facility] O:ENTFAC Isolated Urine Culture - [facility] [place] Count Organism: 1.1 Antibiotic Interpretation ALAINA Status Urine Culture - [facility] Ciprofloxacin S F Urine Culture - [facility] Testing performed at [facility] O:ENTFAC Isolated Urine Culture - [facility] [place] Count Organism: 1.1 Antibiotic Interpretation ALAINA Status Performing Lab: see note ML - [facility] LB SEE REPORT - Copying Machine Mechanic Id information not found for OBX-specific food production supervisor legend UA Micro, reflex to culture Reviewed date:08/22/2024 03:42:43 PM Interpretation: Performing Lab: Notes/Report: [facility] , Color Urine PINK YELLOW Clarity Urine SL CLOUDY CLEAR Specific [place] Urine 1.020 1.005-1.025 pH Urine 6.0 5.0-9.0 Protein Urine >=300 NEG/TRACE mg/dL Glucose Urine UA >=1000 NEGATIVE mg/dL Bilirubin Urine SMALL NEGATIVE Ketones Urine 40 NEGATIVE mg/dL Blood Urine LARGE NEGATIVE Nitrite Urine NEGATIVE NEGATIVE Urobilinogen Urine 1.0 0.2-1.0 EU/dL Leukocyte Esterase Urine TRACE NEGATIVE WBC Urine 10-20 NONE SEEN #/HPF RBC Urine >100 0-2 #/HPF Bacteria Urine MODERATE NONE SEEN #/HPF Mucus Urine SMALL NONE SEEN Squamous Epithelial Cell Urine FEW NONE/RARE #/LPF Crystals Seen? None Seen None Seen #/HPF Cast Seen? SEEN NONE SEEN #/LPF Fine Granular Casts Urine FEW Urine Culture Indicated NO Performing Lab: see note ML - [facility] LB Aerobe ID + Suscept Reviewed date:08/30/2024 08:11:45 PM Interpretation: Performing Lab: Notes/Report: [facility] , Aerobe ID + Suscept See Below For Report Aerobe ID + Suscept WILL FOLLOW O:ENTFAC Isolated Organism: 1.1 Antibiotic Interpretation ALAINA Status Aerobe ID + Suscept Aerobe ID + Suscept WILL FOLLOW O:ENTFAC Isolated Organism: 1.1 Antibiotic Interpretation ALAINA Status Aerobe ID + Suscept *ABNORMAL* Aerobe ID + Suscept WILL FOLLOW O:ENTFAC Isolated Organism: 1.1 Antibiotic Interpretation ALAINA Status Aerobe ID + Suscept Gram positive cocci Aerobe ID + Suscept WILL FOLLOW O:ENTFAC Isolated Organism: 1.1 Antibiotic Interpretation ALAINA Status Aerobe ID + Suscept *ABNORMAL* Aerobe ID + Suscept WILL FOLLOW O:ENTFAC Isolated Organism: 1.1 Antibiotic Interpretation ALAINA Status Aerobe ID + Suscept Received anaerobic b ottle only. Aerobe ID + Suscept WILL FOLLOW O:ENTFAC Isolated Organism: 1.1 Antibiotic Interpretation ALAINA Status Aerobe ID + Suscept Identification and sensitivities to follow. Aerobe ID + Suscept WILL FOLLOW O:ENTFAC Isolated Organism: 1.1 Antibiotic Interpretation ALAINA Status Aerobe ID + Suscept Organism: Enterococc us faecalis : Aerobe ID + Suscept WILL FOLLOW O:ENTFAC Isolated Organism: 1.1 Antibiotic Interpretation ALAINA Status Aerobe ID + Suscept *ABNORMAL* Aerobe ID + Suscept WILL FOLLOW O:ENTFAC Isolated Organism: 1.1 Antibiotic Interpretation ALAINA Status Aerobe ID + Suscept Enterococci suscepti ble to penicillin are predictably Aerobe ID + Suscept WILL FOLLOW O:ENTFAC Isolated Organism: 1.1 Antibiotic Interpretation ALAINA Status Aerobe ID + Suscept susceptible to ampicillin, amoxicillin, ampicillin- Aerobe ID + Suscept WILL FOLLOW O:ENTFAC Isolated Organism: 1.1 Antibiotic Interpretation ALAINA Status Aerobe ID + Suscept sulbactam, amoxicillin-clavulanate, and piperacillin- Aerobe ID + Suscept WILL FOLLOW O:ENTFAC Isolated Organism: 1.1 Antibiotic Interpretation ALAINA Status Aerobe ID + Suscept tazobactam for fde-bdev-zixlpyhty producing Aerobe ID + Suscept WILL FOLLOW O:ENTFAC Isolated Organism: 1.1 Antibiotic Interpretation ALAINA Status Aerobe ID + Suscept enterococci. (CLSI 2018) Aerobe ID + Suscept WILL FOLLOW O:ENTFAC Isolated Organism: 1.1 Antibiotic Interpretation ALAINA Status Aerobe ID + Suscept For Enterococcus spe cies, aminoglycosides (except for Aerobe ID + Suscept WILL FOLLOW O:ENTFAC Isolated Organism: 1.1 Antibiotic Interpretation ALAINA Status Aerobe ID + Suscept high-level resistanc e screening), cephalosporins, Aerobe ID + Suscept WILL FOLLOW O:ENTFAC Isolated Organism: 1.1 Antibiotic Interpretation ALAINA Status Aerobe ID + Suscept clindamycin, and trimethoprim-sulfamethoxa zole are not Aerobe ID + Suscept WILL FOLLOW O:ENTFAC Isolated Organism: 1.1 Antibiotic Interpretation ALAINA Status Aerobe ID + Suscept effective clinically . (CLSI, H498-B25, 2016) Aerobe ID + Suscept WILL FOLLOW O:ENTFAC Isolated Organism: 1.1 Antibiotic Interpretation ALAINA Status Aerobe ID + Suscept Received anaerobic b ottle only. Aerobe ID + Suscept WILL FOLLOW O:ENTFAC Isolated Organism: 1.1 Antibiotic Interpretation ALAINA Status Aerobe ID + Suscept Enterococcus faecalis Aerobe ID + Suscept WILL FOLLOW O:ENTFAC Isolated Organism: 1.1 Antibiotic Interpretation ALAINA Status Aerobe ID + Suscept See Below For Report Aerobe ID + Suscept WILL FOLLOW O:ENTFAC Isolated Organism: 1.1 Antibiotic Interpretation ALAINA Status Aerobe ID + Suscept See Below For Report Aerobe ID + Suscept WILL FOLLOW O:ENTFAC Isolated Organism: 1.1 Antibiotic Interpretation ALAINA Status Aerobe ID + Suscept Penicillin S F Aerobe ID + Suscept WILL FOLLOW O:ENTFAC Isolated Organism: 1.1 Antibiotic Interpretation ALAINA Status Aerobe ID + Suscept Vancomycin S F Aerobe ID + Suscept WILL FOLLOW O:ENTFAC Isolated Organism: 1.1 Antibiotic Interpretation ALAINA Status Performing Lab: see note LC - [facility] LB SEE REPORT - Copying Machine Mechanic Id information not found for OBX-specific food production supervisor legend Venous Blood Gas Reviewed date:08/22/2024 03:42:43 PM Interpretation: Performing Lab: Notes/Report: [facility] , pH VBG 7.441 7.330-7.430 PCO2 VBG 16.8 40.0-52.0 mmHg Performing Lab: see note ML - [facility] LB Troponin I High Sensitivity Reviewed date:08/22/2024 03:42:43 PM Interpretation: Performing Lab: Notes/Report: [facility] , Troponin I High Sensitivity 123.5 4.0-76.1 pg/mL RESULTS CALLED TO DR CONKLIN AT 1325 CUT-OFF POINTS HAVE BEEN ESTABLISHED BASED ON THE FOURTH UNIVERSAL DEFINITION OF MYOCARDIAL INFARCTION. THE UPPER REFERENCE LIMIT (URL) OF TROPONIN, DEFINED THE 99TH PERCENTILE OF cTnI DISTRIBUTION IN A REFERENCE POPULATION, HAS BEEN CONFIRMED THE DECISION THRESHOLD FOR [place] DIAGNOSIS. 99TH PERCENTILE = 76.2 PG/ML NOTE: HIGH-SENSITIVITY TROPONIN ASSAY IS NOT INTENDED TO BE USED IN ISOLATION BUT SHOULD BE INTERPRETED IN CONJUNCTION WITH OTHER DIAGNOSTIC AND CLINICAL INFORMATION. Performing Lab: see note ML - [facility] LB Manual Differential Reviewed date:08/22/2024 03:42:43 PM Interpretation: Performing Lab: Notes/Report: [facility] , Segmented Neutrophils % Manual 79.0 43.0-75.0 Band Neutrophils % 11.0 0-5 % Lymphocytes Percent Manual 4.0 20.5-60.0 % Monocytes Percent Manual 6.0 1.7-12.0 % Eosinophils Percent Manual 0.0 0.9-7.0 % Basophils Percent Manual 0.0 0.2-2.0 % Segmented Neut Absolute Manual 18.72 1.4-6.5 10 3/uL Band Neutrophils Absolute 2.6 0.0-0.3 10 3/uL Lymphocytes Absolute Manual 0.94 1.20-3.80 10 3/uL Monocytes Absolute Manual 1.42 0.30-0.80 10 3/uL Eosinophils Absolute Manual 0.00 0.00-0.70 10 3/uL Basophils Abs Manual 0.00 0.00-0.10 1 0 3/uL Performing Lab: see note ML - [facility] Prothrombin Time INR Reviewed date:08/22/2024 03:42:43 PM Interpretation: Performing Lab: Notes/Report: [facility] , Prothrombin Time 11.7 9.0-11.6 sec INR 1.12 DESIRED INR: 2.0-3.0 CONDITIONS NOT LISTED BELOW 2.5-3.5 FOR PROSTHETIC HEART VALVE REPLACEMENT 2.5-3.5 RECURRENT THROMBOSIS Performing Lab: see note - [facility] PROF 14(COMP METB) Reviewed date:08/22/2024 03:42:43 PM Interpretation: Performing Lab: Notes/Report: [facility] , Sodium 126 136-145 mmol/L Potassium 3.9 3.5-5.1 mmol/L Chloride 89 98-107 mmol/L Carbon Dioxide 13.8 21.0-32.0 mmol/L Anion Gap 27.1 Glucose 390 74-106 mg/dL Blood Urea Nitrogen 23.0 7.0-18.0 mg/dL Creatinine 1.90 0.70-1.30 mg/dL Estimated GFR ( Stacey 46 >=60 mL/min/1.73m 2 Estimated GFR (Non- Kaycee 38 >=60 mL/min/1.73m 2 BUN Creatinine Ratio 12.1 Calcium 9.5 8.5-10.1 mg/dL Bilirubin Total 2.1 0.2-1.0 mg/dL Aspartate Amino Transferase 174 15-37 U/L Alanine Aminotransferase 74 16-63 U/L Alkaline Phosphatase 113 46-116 U/L Total Protein 7.9 6.4-8.2 g/dL Albumin Level 3.3 3.4-5.0 g/dL Globulin 4.6 Albumin Globulin Ratio 0.7 Performing Lab: see note ML - [facility] MAGNESIUM Reviewed date:08/22/2024 03:42:43 PM Interpretation: Performing Lab: Notes/Report: [facility] , Magnesium 1.3 1.8-2.4 mg/dL Performing Lab: see note - [facility] LB LIPASE Reviewed date:08/22/2024 06:15:26 PM Interpretation: Performing Lab: Notes/Report: [facility] , Lipase 33.0 16.0-77.0 U/L Performing Lab: see note ML - [facility] LB LACTATE or LACTIC ACID Reviewed date:08/22/2024 03:42:43 PM Interpretation: Performing Lab: Notes/Report: [facility] , Lactate/Lactic Acid 6.1 0.4-2.0 mmol/L RESULT S CALLED TO DR. CONKLIN AT 1313 Performing Lab: see note ML - [facility] LB CBC AUTO DIFF Reviewed date:08/22/2024 03:42:43 PM Interpretation: Performing Lab: Notes/Report: [facility] , White Blood Count 23.7 4.0-11.0 10 3/uL Red Blood Count 5.22 4.70-6.10 10 6/uL Hemoglobin 15.8 14.0-18.0 g/dL Hematocrit 44.9 42.0-54.0 % Mean Corpuscular Volume 86.0 80.0-94.0 fL Mean Corpuscular Hemoglobin 30.3 25.9-34.0 pg Mean Corpuscular HGB Conc 35.2 29.9-35.2 g/dL Red Cell Distribution Width 12.7 11.0-15.0 % Platelet Count 199 150-450 10 3/uL Mean Platelet Volume 12.2 9.5-13.5 fL Performing Lab: see note ML - [facility] LB BNP Reviewed date:08/22/2024 03:42:43 PM Interpretation: Performing Lab: Notes/Report: [facility] , NT Pro B Type Natriuretic Pept 2146.0 <=900.0 pg/mL RESULTS CALLED TO DR CONKLIN AT 1325 Performing Lab: see note ML - [facility] LB BLOOD GASES BTY Reviewed date:08/23/2024 08:46:32 PM Interpretation: Performing Lab: Notes/Report: [facility] , pH ABG 7.423 7.350-7.450 ABG PCO2 29.8 35.0-45.0 mmHg PO2 ABG 76.3 80.0-100.0 mmHg HCO3 ABG 19.5 22.0-26.0 mmol/L Base Excess ABG -4.9 -2.0-2.0 mmol/L Oxygen Saturation ABG 96.3 Rush Test POSITIVE POSITIVE O2 Mode ROOM AIR Puncture Site L RADIAL Performing Lab: see note - [facility] LB BLOOD CULTURE ID PANEL Reviewed date:08/24/2024 01:35:13 PM Interpretation: Performing Lab: Notes/Report: [facility] , CTX-M NOT APPLICABLE NOT DETECTE IMP NOT APPLICABLE NOT DETECTE KPC NOT APPLICABLE NOT DETECTE mcr-1 NOT APPLICABLE NOT DETECTE mecA/C NOT APPLICABLE NOT DETECTE mecA/C and MREJ (MRSA) NOT APPLICABLE NOT DETECTE NDM NOT APPLICABLE NOT DETECTE OXA-48-like NOT APPLICABLE NOT DETECTE Jakob/B NOT DETECTED NOT DETECTE VIM NOT APPLICABLE NOT DETECTE Source BLOOD Enterococcus faecalis DETECTED NOT DETECTE RESULTS CALLED TO KEISHA AIKEN RN @BY Hui Ayala at 0532 Enterococcus faecium NOT DETECTED NOT DETECTE Listeria monocytogenes NOT DETECTED NOT DETECTE Staphylococcus spp. NOT DETECTED NOT DETECTE Staphylococcus aureus NOT DETECTED NOT DETECTE Staphylococcus epidermidis NOT DETECTED NOT DETECTE Staphylococcus lugdunensis NOT DETECTED NOT DETECTE Streptococcus spp. NOT DETECTED NOT DETECTE Streptococcus agalactiae NOT DETECTED NOT DETECTE Streptococcus pneumoniae NOT DETECTED NOT DETECTE Streptococcus pyogenes NOT DETECTED NOT DETECTE A. calcoaceticus-baumannii Cpx NOT DETECTED NOT DETECTE Bacteroides fragilis NOT DETECTED NOT DETECTE Enterobacterales NOT DETECTED NOT DETECTE Enterobacter cloacae complex NOT DETECTED NOT DETECTE Escherichia coli NOT DETECTED NOT DETECTE Klebsiella aerogenes NOT DETECTED NOT DETECTE Klebsiella oxytoca NOT DETECTED NOT DETECTE Klebsiella pneumoniae group NOT DETECTED NOT DETECTE Proteus spp. NOT DETECTED NOT DETECTE Salmonella spp. NOT DETECTED NOT DETECTE Serratia marcescens NOT DETECTED NOT DETECTE Haemophilus influenzae NOT DETECTED NOT DETECTE Neisseria meningitidis NOT DETECTED NOT DETECTE Pseudomonas aeruginosa NOT DETECTED NOT DETECTE Stenotrophomonas maltophilia NOT DETECTED NOT DETECTE Yue albicans NOT DETECTED NOT DETECTE Yue auris NOT DETECTED NOT DETECTE Yue glabrata NOT DETECTED NOT DETECTE Yue krusei NOT DETECTED NOT DETECTE Yue parapsilosis NOT DETECTED NOT DETECTE Yue tropicalis NOT DETECTED NOT DETECTE Cryptococcus neoformans/gattii NOT DETECTED NOT DETECTE Performing Lab: see note [facility] LB AMYLASE Reviewed date:08/22/2024 06:15:26 PM Interpretation: Performing Lab: Notes/Report: [facility] , Amylase 44 25-115 U/L Performing Lab: see note - [facility] LB CREATININE Reviewed date:05/26/2024 07:33:02 PM Interpretation: Performing Lab: Notes/Report: [facility] , Creatinine 1.06 0.70-1.30 mg/dL Estimated GFR ( Stacey >60 >=60 mL/min/1.73m 2 Estimated GFR (Non- Kaycee >60 >=60 mL/min/1.73m 2 Performing Lab: see note - [facility] US renal BI Reviewed date:04/05/2024 02:34:20 PM Interpretation: Performing Lab: Notes/Report: Source Facility: [facility]-[address] [place] [address] [place] [address] Ultrasound Report Signed Patient: JERRY WILSON MR#: [id number] : 1970 Acct:[id number] Age/Sex: 53 / M ADM Date: 04/02/24 Loc: US Attending Dr: La Nena MASON Ordering Physician: La Nena Kaplan Date of Service: 04/02/24 Procedure(s): US renal BI Accession Number(s): [id number] cc: Doron Camacho M.D.; La Nena Kaplan [place] [id number] Patient Name: JERRY WILSON MRN: [id number] date: 1970 Sex: M Assigned Patient Location: US Current Patient Location: US Accession/Order Number: [id number] Exam Date: 04/02/2024 09:03 Report Date: 04/03/2024 07:02 At the request of: LA NENA KAPLAN Procedure: US renal BI EXAMINATION: US renal BI HISTORY: Kidney Stone COMPARISON: XR abdomen 04/02/2024, CT abdomen 01/29/2023 TECHNIQUE: Ultrasound examination was performed of the kidneys and urinary bladder. FINDINGS: RIGHT KIDNEY: Contain at least 2 nonobstructing stones, 15 x 13 x 7 mm and 20 x 14 x 11 mm. Normal parenchymal echogenicity. Color Doppler demonstrates blood flow within the kidney. Kidney: 12.4 x 7.6 x 6.6 cm LEFT KIDNEY: Contains a nonobstructing 7 x 6 x 4 mm stone. Normal parenchymal echogenicity. Color Doppler demonstrates blood flow within the kidney. Kidney: 14.1 x 7.1 x 6.3 cm BLADDER: No visible wall thickening, mass, or calculi. URETERAL JETS: Visualized bilaterally. US/US renal BI IMPRESSION: 1. Bilateral nonobstructing nephrolithiasis. Electronically authenticated by: CRUZ AWAN Date: 04/03/2024 07:02 Dictated By: Cruz Awan M.D. Signed By: 04/03/24703 DD/ 1 TD/TT: Systems Designer: [place] [address] Ultrasound Report Signed Patient: JERRY WILSNO MR#: [id number] : 1970 Acct:[id number] Age/Sex: 53 / M ADM Date: 04/02/24 Loc: US Attending Dr: Arsenio MASON Ordering Physician: La Nena Kaplan Date of Service: 04/02/24 Procedure(s): US renal BI Accession Number(s): [id number] cc: Doron Camacho M.D. ; La Nena Kaplan [place] [id number] Patient Name: JERRY WILSON MRN: [id number] date: 1970 Sex: M Assigned Patient Location: US Current Patient Loca tion: US Accession/Order Numb er: [id number] Exam Date: 09:03 Report Date: 04/03/2024 07:02 At the request of: LA NENA KAPLAN Procedure: US renal BI EXAMINATION: US renal BI HISTORY: Kidney Stone COMPARISON: XR abdom en 04/02/2024, CT abdomen 01/29/2023 TECHNIQUE: Ultrasoun d examination was performed of the kidneys and urinary bladder. FINDINGS: RIGHT KIDNEY: Contai n at least 2 nonobstructing stones, 15 x 13 x 7 mm and 20 x 14 x 11 mm. Normal parenchymal echogenicity. Color Doppler demonstrates blood flow within the kidn ey. Kidney: 12.4 x 7.6 x 6.6 cm LEFT KIDNEY: Contain s a nonobstructing 7 x 6 x 4 mm stone. Normal parenchymal echogenicity. Color Doppler demonstrates blood flow within the kidney. Kidney: 14.1 x 7.1 x 6.3 cm BLADDER: No visible wall thickening, mass, or calculi. URETERAL JETS: Visua lized bilaterally. U S/US renal BI IMPRESSION: 1. Bilateral nonobstructing nephrolithiasis. Electronically authenticated by: CRUZ AWAN Date: 04/03/2024 07:02 Dictated By: Cruz Awan M.D. Signed By: 04/03/24703 DD/ 1 TD/TT: Systems Designer: XR abdomen 1V Reviewed date:04/05/2024 02:34:20 PM Interpretation: Performing Lab: Notes/Report: Source Facility: [place] [address] XRay Report Signed Patient: JERRY WILSON MR#: [id number] : 1970 Acct:[id number] Age/Sex: 53 / M ADM Date: 04/02/24 Loc: Attending Dr: La Nena MASON Ordering Physician: La Nena Kaplan Date of Service: 04/02/24 Procedure(s): XR abdomen 1V Accession Number(s): [id number] cc: Doron Camacho M.D.; La Nena Kaplan [place] [address] Patient Name: JERRY WILSON MRN: [id number] date: 1970 Sex: M Assigned Patient Location: US Current Patient Location: Accession/Order Number: [id number] Exam Date: 04/02/2024 10:02 Report Date: 04/03/2024 06:59 At the request of: LA NENA KAPLAN Procedure: XR abdomen 1V EXAMINATION: XR abdomen 1V HISTORY: Kidney Stone COMPARISON: XR abdomen 01/23/2023 FINDINGS: KIDNEY/URETER - RIGHT: Several stones projecting over right kidney, largest is 16 mm. KIDNEY/URETER - LEFT: No visible renal or ureteral calcifications. PELVIS: No appreciable ureteral stones. Stable pelvic calcifications favoring phleboliths. BOWEL: No abnormal dilation or deviation. BONES: Mechanical fusion of lower lumbar spine. OTHER: Negative. No abnormal gaseous collections. XR/XR abdomen 1V IMPRESSION: 1. Right nephrolithiasis with several large stones; increased compared to prior study. Electronically authenticated by: CRUZ AWAN Date: 04/03/2024 06:59 Dictated By: Cruz Awan M.D. Signed By: 04/03/2402 DD/ TD/TT: Systems Designer: [place] [address] XRay Report Signed Patient: JERRY WILSON MR#: [id number] : 1970 Acct:[id number] Age/Sex: 53 / M ADM Date: 04/02/24 Loc: US Attending Dr: Arsenio MASON Ordering Physician: La Nena Kaplan Date of Service: 04/02/24 Procedure(s): XR abd omen 1V Accession Number(s): [id number] cc: Doron Camacho M.D. ; La Nena Kaplan [address] [address] Patient Name: JERRY WILSON MRN: [id number] date: 1970 Sex: M Assigned Patient Location: US Current Patient Location: Accession/Order Numb er: [id number] Exam Date: 10:02 Report Date: 04/03/2024 06:59 At the request of: LA NENA KAPLAN Procedure: XR abdomen 1V EXAMINATION: XR abdo men 1V HISTORY: Kidney Stone COMPARISON: XR abdom en 01/23/2023 FINDINGS: KIDNEY/URETER - RIGH T: Several stones projecting over right kidney, largest is 16 mm. KIDNEY/URETER - LEFT : No visible renal or ureteral calcifications. PELVIS: No appreciab le ureteral stones. Stable pelvic calcifications favoring phleboliths. BOWEL: No abnormal dilation or deviation. BONES: Mechanical fu joselin of lower lumbar spine. OTHER: Negative. No abnormal gaseous collections. X R/XR abdomen 1V IMPRESSION: 1. Right nephrolithi asis with several large stones; increased compared to prior study. Electronically authenticated by: CRUZ AWAN Date: 04/03/2024 06:59 Dictated By: Cruz Awan M.D. Signed By: 04/03/24 0702 DD/ 0659 TD/TT: Systems Designer: CBC AUTO DIFF Reviewed date:08/25/2024 09:54:11 AM Interpretation: Performing Lab: Notes/Report: [facility] , White Blood Count 8.3 4.0-11.0 10 3/uL Red Blood Count 3.89 4.70-6.10 10 6/uL Hemoglobin 11.5 14.0-18.0 g/dL Hematocrit 34.1 42.0-54.0 % Mean Corpuscular Volume 87.7 80.0-94.0 fL Mean Corpuscular Hemoglobin 29.6 25.9-34.0 pg Mean Corpuscular HGB Conc 33.7 29.9-35.2 g/dL Red Cell Distribution Width 13.7 11.0-15.0 % Platelet Count 165 150-450 10 3/uL Mean Platelet Volume 11.2 9.5-13.5 fL Neutrophils Percent Auto 81.7 43.0-75.0 % Lymphocytes Percent Auto 7.4 20.5-60.0 % Monocytes Percent Auto 9.8 1.7-12.0 % Eosinophils Percent Auto 0.2 0.9-7.0 % Basophils Percent Auto 0.1 0.2-2.0 % Immature Granulocytes Pct Auto 0.8 0.0-0.5 % Neutrophils Absolute Auto 6.7 1.4-6.5 10 3/uL Lymphocytes Absolute Auto 0.6 1.2-3.8 10 3/uL Monocytes Absolute Auto 0.8 0.3-0.8 10 3/uL Eosinophils Absolute Auto 0.0 0.0-0.7 10 3/uL Basophils Absolute Auto 0.0 0.0-0.1 10 3/uL Immature Granulocytes Abs Auto 0.07 0.00-0.03 10 3/uL Performing Lab: see note ML - [facility] LB Prothrombin Time INR Reviewed date:08/24/2024 01:35:13 PM Interpretation: Performing Lab: Notes/Report: [facility] , Prothrombin Time 10.9 9.0-11.6 sec INR 1.03 DESIRED INR: 2.0-3.0 CONDITIONS NOT LISTED BELOW 2.5-3.5 FOR PROSTHETIC HEART VALVE REPLACEMENT 2.5-3.5 RECURRENT THROMBOSIS Performing Lab: see note ML - [facility] LB PTT Reviewed date:08/24/2024 01:35:13 PM Interpretation: Performing Lab: Notes/Report: [facility] , Partial Thromboplastin Time 30.4 22.3-36.2 sec Performing Lab: see note ML - [facility] LB Reason For Referral Diagnosis 1 Internal derangement of knee (M23.90) Referral Organization [facility] Referring Provider First Name Ruben Referring Provider Last Name Janice Referring Provider [facility] Referred Provider Cruz Rodriguez Referred Provider Specialty Orthopedic S urgery Referral Priority Routine Diagnosis 1 Hematuria, unspecifi ed (R31.9) Referral Organization [facility] Referring Provider First Name Ruben Referring Provider Last Name Janice Referring Provider [facility] Referred Provider Landon Marie Referred Provider Specialty Urology Referral Priority Routine Reason ASHLYN please :) Diagnosis 1 Abnormal stress test (R94.39) Referral Organization [facility] Referring Provider First Name Ruben Referring Provider Last Name Janice Referring Provider [facility] Referred Provider [facility] Cardiology, [facility] Referred Provider Specialty Cardiology Referral Priority Routine Medications Medication SIG (Take, Route, Frequency, Duration) Notes Start Date End Date Status Simvastatin 40 MG 1 tablet in the even ing Orally Once a day for 90 days 10/17/2023 Active tiZANidine HCl 4 MG 2 tablets Orally at bedtime for 90 days 03/28/2023 Active PARoxetine HCl 40 MG 1 1/2 tablet in the morning Orally Once a day for 90 days 08/23/2022 Active Oxaprozin 600 MG 2 tablets Orally Jayde ly for 90 days 09/01/2022 Active metFORMIN HCl 500 MG 1 tablet Orally twi ce daily for 90 days 02/24/2023 Active Irbesartan 150 MG 1 tablet Orally Once a day for 90 days 10/17/2023 Active Flomax 0.4 MG 1 capsule Orally Onc e a day for 30 days 03/02/2024 Active Metoprolol Tartrate 100 MG 1 tablet with food Orally Twice a day for 90 days 08/23/2022 Active Fenofibrate 160 MG 1 tablet Orally Once a day for 90 days 11/18/2022 Active Cephalexin 500 MG 2 tablet Orally BID for 10 days 09/16/2024 Active SUMAtriptan Succinate 100 MG 1 tablet at least 2 hours between doses as needed Orally Twice a day 10/08/2023 Active Social History Tobacco Use: Social History Observation Description Date Details (start date - stop date) Never Smoker NA - NA Tobacco Control (Standard) Question Answer Notes Tobacco use: Nonsmoker AUDIT-C (Standard) Question Answer Notes Did you have a drink contain ing alcohol in the past year? Yes How often did you have six o r more drinks on one occasion in the past year? Never (0 point) How many drinks did you have on a typical day when you were drinking in the past year? 1 or 2 drinks (0 point) How often did you have a dri nk containing alcohol in the past year? Monthly or less (1 point) Points 1 Interpretation Negative Problems Problem Type SNOMED Code ICD Code Onset Dates Problem Status W/U Status Risk Notes Problem Bandemia (400435145) Bandemia (D72.825) Active confirmed Problem Osteoarthritis of knee (174990909) Osteoarthritis of knee, unspecified (M17.9) Active confirmed Problem 78916093 Nausea with vomi ting, unspecified (R11.2) Active confirmed Problem 72555807 Hematuria, unspecified (R31.9) Active confirmed Problem [id number] Abnormal findi ngs on diagnostic imaging of other abdominal regions, including retroperitoneum (R93.5) Active confirmed Problem Hyperlipidaemia (12995179) Hyperlipemia (E78.5) Active confirmed Problem Chronic obstructive pulmonary disease (95083182) Chronic obstructive pulmonary disease (J44.9) Active confirmed Problem Hypertension (13858927) Hypertension (I10) Active confirmed Problem Anxiety (03856940) Anxiety (F41.9) Active confi rmed Problem DM - Diabetes mellitus (54782880) DM (diabetes mellitus) (E11.9) Active confirmed Problem Depression (944737688) Depression (F32.9) Active confirmed Problem Sleep apnea (55620187) Sleep apnea (G47.30) Active confirmed Problem Obstructive sleep apnea syndrome (89216500) CLEM (obstructive sleep apnea) (G47.33) Active confirmed Problem Insomnia (365322774) Insomnia (G47.00) Active c onfirmed Problem Degenerative arthritis (742347783) Degenerative arthritis (M19.90) Active confirmed Problem 13792130 Vitamin D defici ency (E55.9) Active confirmed Problem Hypertriglyceridemia (812918338) Hypertriglyceridemia (E78.1) Active confirmed Problem Kidney stone (32775973) Kidney stones (N20.0) Active confirmed Problem Disorder of lumbar disc (317201943) Lumbar disc disease (M51.9) Active confirmed Problem 499421502 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) Active confirmed Problem Well adult (798605325) Well adult (Z00.00) Active confirmed Problem Polyp colon (54669509) Colon polyp (K63.5) Active confirmed Problem Pyelonephritis (61727411) Pyelonephritis (N12) Active confirmed Problem Leukocytosis (550267094) Leukocytosis (D72.829) Active confirmed Problem Ventricular hypertrophy (712247625) Ventricular hypertrophy (I51.7) Active confirmed Problem Internal derangement of knee (87375271) Internal derangement of knee (M23.90) Active confirmed Problem Acute non-ST segment elevation myocardial infarction (797440110) NSTEMI (non-ST elevation myocardial infarction) (I21.4) Active confirmed Problem Type II diabetes mellitus without complication (612971716) Controlled type 2 diabetes mellitus (E11.9) Active confirmed Problem Osteoarthritis of knee (756502156) Knee osteoarthritis (M17.10) Active confirmed Vital Signs Blood pressure diastolic 88 mm Hg 08/30/2024 Height 70 in 08/30/2024 Blood pressure systolic 160 mm Hg 08/30/2024 Weight 349.4 lbs 08/30/2024 BMI 50.13 kg/m2 08/30/2024 Encounters Encounter Location Date Provider Diagnosis [facility] [address] [place] [address] 12/28/2023 Ruben Camacho [facility] [address] [place] [address] 01/05/2024 Ruben Camacho Well adult Z00.00 [facility] [address] [facility] [place] [address] 01/06/2024 Ruben Camacho Internal derangement of knee M23.90 [facility] [address] [place] [address] 01/28/2024 Ruben Camacho Hypertension I10 [facility] [address] [facility] [place] [address] 02/26/2024 Ruben [facility] [address] [facility] [place] [address] 03/02/2024 Ruben shanel [facility] [address] [facility] [place] [address] 03/02/2024 Ruben shanel [facility] [address] [facility] [place] [address] 03/04/2024 Ruben Sharmashanel [facility] [address] [facility] [place] [address] 03/04/2024 Ruben Caamcho Hematuria, unspecifi ed R31.9 [address] Kid[address] stones N20.0 [facility] [address] [facility] [place] [address] 03/12/2024 Mile Farias Well adult Z00.00 ; Hypertension I10 and Syncope R55 [facility] [address] [facility] [place] [address] 03/31/2024 Ruben Janice [facility] [address] [facility] [place] [address] 04/05/2024 Ruben shanel [facility] [address] [facility] [place] [address] 07/29/2024 Ruben shanel [facility] [address] [facility] [place] [address] 08/25/2024 Ruben [facility] [address] [facility] [place] [address] 08/28/2024 Ruben Camacho [facility] [address] [facility] [place] [address] 09/15/2024 Ruben Camacho Abnormal stress test R94.39 [facility] [address] [place] [address] 09/15/2024 Urben Hoy Lymph node enlargeme nt R59.1 [facility] [address] [place] [address] 09/17/2024 Ruben Sharmay [facility] [address] [place] [address] 09/23/2024 Ruben Sharmay [facility] [address] [place] [address] 09/23/2024 Ruben Hoy Well adult Z00.00 [facility] [address] [facility] [place] [address] 09/30/[address] [facility] [address] [place] [facility] [place] [address] 09/30/2024 Ruben Hoy Well adult Z00.00 [facility] [address] [place] [address] 10/18/2024 Ruben Hoy Well adult Z00.00 [facility] [address] [place] [address] 10/24/2024 Ruben Sharmay [facility] [address] [place] [address] 10/25/2024 Ruben Hoy [facility] [address] [place] [address] 12/24/2023 Ruben Hoy Hypertension I10 ; Sleep apnea G47.30 ; Knee osteoarthritis M17.10 and Internal derangement of knee M23.90 [facility] [address] [place] [address] 01/01/2024 Ruben Hoy Osteoarthritis of kn ee, unspecified M17.9 [facility] [address] [place] [address] 08/10/2024 Ruben Hoy Hypertension I10 ; Hyperlipemia E78.5 and Sleep apnea G47.30 [facility] [address] [place] [address] 08/30/2024 Ruben Camacho Pyelonephritis N12 ; NSTEMI (non-ST elevation myocardial infarction) I21.4 and Edema R60.9 Assessments Encounter Date Diagnosis (ICD Code) Assessment Notes Treatment Notes Treatment Clinical Notes Section Notes 12/24/2023 Hypertension (ICD-10 - I10) Bp goo control 12/24/2023 Sleep apnea (ICD-10 - G47.30) Machine workigh weel wt betterdaytime awakeness 01/01/2024 Osteoarthritis of knee, unspecified (ICD-10 - M17.9) 08/10/2024 Hypertension (ICD-10 - I10) BPup here but not on meds yet this am 08/10/2024 Hyperlipemia (ICD-10 - E78.5) 01/05/2024 Well adult (ICD-10 - Z00.00) 01/06/2024 Internal derangement of knee (ICD-10 - M23.90) 01/28/2024 Hypertension (ICD-10 - I10) 03/04/2024 Hematuria, unspecified (ICD-10 - R31.9) 03/04/2024 Kidney stones (ICD-10 - N20.0) 03/12/2024 Well adult (ICD-10 - Z00.00) 03/12/2024 Hypertension (ICD-10 - I10) 09/15/2024 Abnormal stress test (ICD-10 - R94.39) 09/15/2024 Lymph node enlargement (ICD-10 - R59.1) 09/23/2024 Well adult (ICD-10 - Z00.00) 09/30/2024 Well adult (ICD-10 - Z00.00) 10/18/2024 Well adult (ICD-10 - Z00.00) 08/30/2024 Pyelonephritis (ICD-10 - N12) maintain ab til stent removal 08/30/2024 NSTEMI (non-ST elevation myocardial infarction) (ICD-10 - I21.4) NSTEMI due to yelonphritis - needs tresttest 08/30/2024 Edema (ICD-10 - R60.9) 03/12/2024 Syncope (ICD-10 - R55) 08/10/2024 Sleep apnea (ICD-10 - G47.30) 12/24/2023 Knee osteoarthritis (ICD-10 - M17.10) 12/24/2023 Internal derangement of knee (ICD-10 - M23.90) Need mri - would do the surgery if indicated by MRI Plan Of Treatment Pending Test Test Name Order Date CMP (COMPLETE METABOLIC PANEL) 4 UA (URINALYSIS, COMPLETE) 02/11/2023 HEMOGLOBIN A1C (GLYCO) 10/03/2023 INSULIN, TOTAL 10/03/2023 LIPID PANEL (CHOL/TRIG/HDL/LDL) 10/03/19 CBC WITH DIFF 10/03/2023 Urinalysis Microscopic 02/11/2023 URINE CULTURE 01/01/2023 COMPREHENSIVE METABOLIC PROFILE WITH GFR 03/12/2024 OCCULT BLOOD, FECAL, IMMUNOASSAY 024 CBC W/AUTO DIFF 03/12/2024 Treadmill Stress Test with Nuclear Imagi ng 08/30/2024 STOOL OCCULT BLOOD 10/03/2023 CULTURE URINE 02/11/2023 GLYCOHEMOGLOBIN A1C 03/12/2024 URINE MICROSCOPIC ONLY 01/01/2023 CT ABDOMEN W CON 01/27/2023 CT PELVIS W CON 01/27/2023 MRI KNEE RT WO CON 12/24/2023 XR KUB 1 VIEW 01/22/2023 THYROID PANEL (T4/TSH/FREE T3) 4 THYROID PANEL (T4/TSH/FREE T3) 4 PSA, SCREENING 03/12/2024 Lipid Panel 03/12/2024 US venous doppler UE RT 08/30/2024 US AXILLA RT 09/15/2024 Insurance Providers Payer Name Payer Address Payer Phone Subscriber Number Group Number Insured Name Patient Relationship to Insured Coverage Start Date Coverage End Date [employer] [address] [address] [place] [phone] [id number] Jerry Wilson Self - patient is the insured 4 Medications Administered Medication Instructions Date of Administration Dosage Notes Kenalog-40 01/01/2024 80 mg Medical (General) History Medical History History ICD Code Anxiety F41.9 Chronic obstructive pulmonary disease J4 4.9 COVID-19 U07.1 Degenerative arthritis M19.90 Depression F32.9 Controlled type 2 diabetes mellitus E11. 9 Hyperlipemia E78.5 Hypertension I10 Hypertriglyceridemia E78.1 Insomnia G47.00 Knee osteoarthritis M17.10 Lumbar disc disease M51.9 Sleep apnea G47.30 Ventricular hypertrophy I51.7 Surgical History Surgery Date(Month/Year) left knee sugery left shoulder sx back fusion x2
--- NOTE | 2024-11-01 13:02 | CT_ITS ---
[address] [address] Patient Name: JERRY RESTREPO MRN: [id number] date: 1970 Sex: M Assigned Patient Location: CT Current Patient Location: CT Accession/Order Number: [id number] Exam Date: 11/01/2024 13:35 Report Date: 11/01/2024 13:44 At the request of: SOFIE DURBIN MD Procedure: CT abdomen pelvis wo con CT abdomen pelvis wo con 11/01/2024 1:19 PM SIGNS AND SYMPTOMS: Renal stones, follow-up TECHNIQUE: Multidetector ct axial images of the abdomen and pelvis were obtained without IV contrast. Multiplanar reformats were performed and reviewed to further define anatomy and possible pathology. CT was performed with one or more of the following dose reduction techniques: Automated exposure control, adjustment of the mA and/or kV according to patient size, or use of iterative reconstruction technique. COMPARISON: 08/22/2024 FINDINGS: Lower Chest: There is a 2 mm noncalcified nodule in the right lower lobe. Prominent lower mediastinal/paraesophageal lymph nodes are noted measuring up to 3.8 cm and 1.7 cm in short axis. These are unchanged. ABDOMEN: Liver: Within normal limits. Bile Ducts: Normal caliber. Gallbladder: No calcified gallstones. Normal caliber wall. Pancreas: Within normal limits. Spleen: Within normal limits. Adrenals: Within normal limits. Kidneys: Nonobstructing right-sided renal stones are noted measuring up to 7 mm in greatest dimension. No hydronephrosis. There is a 3.7 cm mass like structure along the right renal cortex which is unchanged. Pelvis: Reproductive Organs: No pelvic masses. Ureters: Within normal limits. Bladder: Within normal limits. Bowel: Normal caliber. There is a normal appendix in the right lower quadrant. Mesenteric Lymph Nodes: No enlarged mesenteric lymph nodes. Peritoneum: No ascites or free air, no fluid collection. Vessels: Filling within normal limits Retroperitoneum: Within normal limits. Abdominal Wall: Within normal limits. Bones: Degenerative changes are noted in the thoracic spine. There is posterior fusion of the lower lumbar spine. CT/CT abdomen pelvis wo con IMPRESSION: Prominent lower mediastinal/paraesophageal lymph nodes are noted measuring up to 3.8 cm and 1.7 cm in short axis. These are unchanged. Nonobstructing right-sided renal stones are noted measuring up to 7 mm in greatest dimension. This is unchanged. No hydronephrosis. There is a 3.7 cm mass like structure along the right renal cortex which is unchanged. This is better demonstrated on the previous contrast-enhanced CT. Impression dictated by: Alexx Pruitt M.D. 11/01/2024 1:44 PM Dictation Location: [place] [address] Electronically authenticated by: [id number] Y Date: 11/01/2024 13:44
== END 2024-11-01 12:54 | disposition home or self-care (01) ==
LOC: CT 12:53
PROVIDERS: PCP Family Medicine
DX: N20.0 Calculus of kidney (principal)
CPT/HCPCS: 74176

== ENCOUNTER 2024-11-03 15:19 | Outpatient (OUT) | payer OTHER, SELFPAY ==
--- OUTSIDE RECORDS SUMMARY | 2024-10-24 08:41 | XMS_ITS ---
Author Organization The [facility] in [place] Address [address] [place] [address] Care Team Providers Care Neurology Technician Name Role Phone Ruben Camacho Primary Care Provider REASON FOR VISIT US Results Encounters Encounter Location Date Provider Diagnosis [facility] [address] [place] [address] 10/24/2024 Ruben Camacho Plan Of Treatment No Information Progress Notes * Rome WILSONDOB:1970 ([age] yo M)Acc No.[id number]:10/24/2024 Patient: José Miguel POLLARDic :1970 A ge:54 Y S ex:Male Address:[facility] [place], [address] * true * Date: Generated for Printi ng/Fapeterg/eTransmitting on: 0 11/03/2024 03:26 PM EDT
--- OUTSIDE RECORDS SUMMARY | 2024-11-03 15:25 | XMS_ITS | Encounter Summary ---
Author Organization [facility] Address [address] [place] [address] Phone Care Team Providers Care [employer] [place] Worker Name Role Phone Gama Camacho MD Primary Care Provider [phone] Encounter Details Date Type Department Care Team ([facility] st Contact Info) Description 07/21/2020 Orders Only [facility] [address] [place] [address] Conversion, Onbase Social History Tobacco Use Types [...] on filedocumented in this encounter Care Teams [employer] [place] Worker Relationship Specialty Start Date End Date Gama Camacho MD [address] [place] [id number] PCP - General Family Medicine 08/03/24 documented as of this encounter
--- OUTSIDE RECORDS SUMMARY | 2024-11-03 15:25 | XMS_ITS | Clinical Summary ---
Author Organization [facility] Address [address] [place] [address] Care Team Providers Care Nursing Program Director Name Role Phone Braydon Burks MD Primary [...] on file Medical Devices Implanted Type Area Leg Man Device Identifier Shelf Expiration Date Model / Serial / Lot Kit Sealant Surgiflo Hemostatic Matrix Implanted:Qty : 1 on 04/30/2018 by Braydon Burks MD at [facility] Bone/Gra ft/Tissu e/Human/ Synth N/A: Spine Lumbar JN[place]: [employer]-PMM 12/10/2019 [id number] / / [id number] Massimo-Graft Infuse Kt Sm Implanted:Qty : 1 on 04/30/2018 by Braydon Burks MD at [facility] Bone/Gra ft/Tissu e/Human/ Synth N/A: Spine Lumbar [employer]-PMM 07/09/2019 [id number] / / [id number] Graft Canc Chip [id number] 15cc Implanted:Qty : 1 on 04/30/2018 by Braydon Burks MD at [facility] Bone/Gra ft/Tissu e/Human/ Synth N/A: Spine Lumbar [employer] FND-PMM 02/12/2021 [id number] / / Screw Reline O 2s Polyaxial 7.5x55mm Implanted:Qty : 2 on 04/30/2018 by Braydon Burks MD at [facility] Screw/Pl ate/Nail /Malachi N/A: Spine Lumbar [employer]-PMM [id number] / / Screw Lk Reline Opn Tulip 5.5mm Implanted:Qty : 4 on 04/30/2018 by Braydon Burks MD at [facility] Spine N/A: Spine Lumbar [employer]-PMM [id number] / / Impl Spine Malachi Reline-O Lrdtc 5.5x45mm Implanted:Qty : 2 on 04/30/2018 by Braydon Burks MD at [facility] Spine N/A: Spine Lumbar [employer]-PMM [id number] / / Connector Reline-O X C 45-65mm 5.5 Lp Ad Implanted:Qty : 1 on 04/30/2018 by Braydon Burks MD at [facility] Spine N/A: Spine Lumbar [employer]PMM [id number] / / Insurance [employer] Advance Directives * Full Code (Latest Code Status on File) Date Activated Date Inactivated Comments 04/30/2018 8:13 PM 05/02/2018 4:28 PM Care Teams Nursing Program Director Relationship Specialty Start Date End Date Braydon Burks MD PCP - General Neurosurgery 05/07/18
--- OUTSIDE RECORDS SUMMARY | 2024-11-03 15:26 | XMS_ITS | Patient Health Record ---
Author Organization The [facility] in [place] Address [address] [place] [address] Care Team Providers Care Sales Coach Name Role Phone Janice Ruben Primary Care Provider Roverto Jaimes Unavailable [phone] Mile Farias Unavailable [phone] Allergies No Known Allergies Results Component Value Reference Range Notes MR knee RT wo con Reviewed date:01/06/2024 04:09:48 PM Interpretation: Performing Lab: Notes/Report: Source Facility: [place] [address] Magnetic Resonance Report Signed Patient: JERRY WILSON MR#: [id number] : 1970 Acct:[id number] Age/Sex: 53 / M ADM Date: 01/05/24 Loc: RAD Attending Dr: Doron Camacho M.D. Ordering Physician: Doron Camacho M.D. Date of Service: 01/05/24 Procedure(s): MR knee RT wo con Accession Number(s): [id number] cc: Doron Camacho M.D. [place] [id number] Patient Name: JERRY WILSON MRN: [id number]:[id number] date: 1970 Sex: M Assigned Patient Location: RAD Current Patient Location: Accession/Order Number: [id number] Exam Date: 01/05/2024 15:33 Report Date: 01/06/2024 [...] Signed By: 01/06/24 1048 DD/ 1045 TD/TT: Airport Engineer: [place] [address] Magnetic Resonance Report Signed Patient: JERRY WILSON MR#: [id number] : 1970 Acct:[id number] Age/Sex: 53 / M ADM Date: 01/05/24 Loc: RAD Attending Dr: See Camacho M.D. Ordering Physician: Doron Camacho M.D. Date of Service: 01/05/24 Procedure(s): MR chastity flores RT wo con Accession Number(s): [id number] cc: Doron Camacho M.D. [place] [id number] Patient Name: JERRY WILSON MRN: [id number]:[id number] date: 1970 Sex: M Assigned Patient Location: [facility] Current Patient Location: Accession/Order Numb er: [id number] Exam Date: 01/05/2024 15:33 Report Date: 01/06/2024 [...] Signed By: 01/06/24 1048 DD/ 1045 TD/TT: Airport Engineer: CREATININE Reviewed date:05/26/2024 07:33:02 PM Interpretation: Performing Lab: Notes/Report: [facility] , Creatinine 1.06 0.70-1.30 mg/dL Estimated GFR ( Stacey >60 >=60 mL/min/1.73m 2 Estimated GFR (Non- Kaycee >60 >=60 mL/min/1.73m 2 Performing Lab: see note ML - [facility] LB CT abdomen pelvis wo con Reviewed date:05/27/2024 01:06:17 PM Interpretation: Performing Lab: Notes/Report: Source Facility: [facility]-[address] [place] [address] CT Scan Report Signed Patient: JERRY WILSON MR#: [id number] : 1970 Acct:[id number] Age/Sex: 53 / M ADM Date: 05/26/24 Loc: LAB Attending Dr: Dex Pang M.D. Ordering Physician: Dex Pang M.D. Date of Service: 05/26/24 Procedure(s): CT abdomen pelvis wo/w con Accession Number(s): [id number] cc: Doron Camacho M.D. [place] [address] Patient Name: JERRY WILSON MRN: [id number]:[id number] date: 1970 Sex: M Assigned Patient Location: LAB Current Patient Location: Accession/Order Number: [id number] Exam Date: 05/26/2024 08:37 Report Date: 05/27/2024 04:57 At the request of: DEX PANG Procedure: CT abdomen pelvis wo/w con [...] 1000: NO ALERT REQUIRED Electronically authenticated by: JEANINE AWAN Date: 05/27/2024 04:57 Dictated By: Jeanine Awan M.D. Signed By: 05/27/24 0500 DD/ 0457 TD/TT: Airport Engineer: The [address] [address] [address] Scan Report Signed Patient: JERRY WILSON MR#: [id number] : 1970 Acct:[id number] Age/Sex: 53 / M ADM Date: 05/26/24 Loc: LAB Attending Dr: Oswald Piña Ordering Physician: Dex Pang M.D. Date of Service: 05/26/24 Procedure(s): CT abd omen pelvis wo/w con Accession Number(s): [id number] cc: Doron Camacho M.D. [address] [address] Patient Name: JERRY WILSON MRN: [id number]:[id number] date: 1970 Sex: M Assigned Patient Location: LAB Current Patient Location: Accession/Order Numb er: [id number] Exam Date: 05/26/2024 08:37 Report Date: 05/27/2024 04:57 At the request of: DEX PANG Procedure: CT abdome n pelvis wo/w [...] 1000: NO ALERT REQUIRED Electronically authenticated by: JEANINE AWAN Date: 05/27/2024 04:57 Dictated By: Jeanine Awan M.D. Signed By: 05/27/24 0500 DD/ 0457 TD/TT: Airport Engineer: BLOOD CULTURE ID PANEL Reviewed date:08/24/2024 01:35:13 PM Interpretation: Performing Lab: Notes/Report: The [facility] , CTX-M NOT APPLICABLE NOT DETECTE [...] DETECTED NOT DETECTE Performing Lab: see note [facility] LB BLOOD GASES BTY Reviewed date:08/23/2024 08:46:32 PM Interpretation: Performing Lab: Notes/Report: [facility] , pH ABG 7.423 7.350-7.450 ABG PCO2 29.8 35.0-45.0 mmHg PO2 ABG 76.3 80.0-100.0 mmHg HCO3 ABG 19.5 22.0-26.0 mmol/L Base Excess ABG -4.9 -2.0-2.0 mmol/L Oxygen Saturation ABG 96.3 Rush Test POSITIVE POSITIVE O2 Mode ROOM AIR Puncture Site L RADIAL Performing Lab: see note [facility] LB Blood Culture 1 Reviewed date:08/24/2024 04:16:09 PM Interpretation: Performing Lab: Notes/Report: RIGHT [facility] , Blood Culture 1 See Below For Report Blood Culture 1 NG3D NO GROWTH AT 36-48 HOURS. FINAL TO FOLLOW.^NO GROWTH AT 36-48 HOURS. FINAL TO FOLLOW. Performing Lab: see note [facility] LB Blood Culture 2 Reviewed date:08/28/2024 01:17:56 PM Interpretation: Performing Lab: Notes/Report: LEFT AC IV START [facility] , Blood Culture 2 See Below For Report Blood Culture 2 NG5D NO GROWTH AT 5 DAYS.^NO GROWTH AT 5 DAYS. Performing Lab: see note [facility] LB Aerobe ID + Suscept Reviewed date:08/30/2024 [...] Status Aerobe ID + Suscept tazobactam for hro-orkl-woolzwckt producing Aerobe ID + Suscept WILL FOLLOW [...] ID + Suscept effective clinically . (CLSI, A934-Y97, 2016) Aerobe ID + Suscept WILL FOLLOW [...] Interpretation ALAINA Status Performing Lab: see note - [facility] LB SEE REPORT - Rug Weaver Id information not found for OBX-specific vp of technology legend Anaerobe Identification Only Reviewed date:08/30/2024 08:11:45 PM Interpretation: Performing Lab: Notes/Report: [facility] , Anaerobe Identification Only See Below For Report Anaerobe Identification Only Anaerobe Identification Only Specimen has been received and testing has been initiated. Anaerobe Identification Only Anaerobe Identification Only Anaerobe Identification Only Anaerobe Identification Only No anaerobes recovered. Anaerobe Identification Only Anaerobe Identification Only Performed at: [facility] Anaerobe Identification Only Anaerobe Identification Only [address] [place], [place] [id number] Anaerobe Identification Only Anaerobe Identification Only Jumpbasting Machine Operator: Dwight Enrique PhD, Phone: [phone] Anaerobe Identification Only Performing Lab: see note LC - [facility] LB SEE REPORT - Rug Weaver Id information not found for OBX-specific vp of technology legend ECG 12 lead Reviewed date:08/23/2024 08:46:32 PM Interpretation: Performing Lab: Notes/Report: Source Facility: [place] [address] Electrocardiograph Report Signed Patient: JERRY WILSON MR#: [id number] : 1970 Acct:[id number] Age/Sex: 53 / M ADM Date: 08/22/24 Loc: [place] 224-[address]: Doron Camacho M.D. 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 Measurements Intervals [place] Rate: 104 P: 53 VA: 132 QRS: 24 QRSD: 108 T: 52 QT: 358 QTc: 418 Interpretive Statements 1120 Sinus tachycardia 2440 Incomplete right bundle branch block abnormal ECG Compared to ECG 08/22/2024 12:13:46 Indeterminate axis no longer present Heart rate has decreased Electronically Signed On 08-23-2024 20:18:12 EDT by BO PARTIDA M.D. Dictated By: BO PARTIDA Signed By: 08/23/242017 DD/ 1325 TD/TT: Airport Engineer: [place] [address] Electrocardiograph Report Signed Patient: JERRY WILSON MR#: [id number] : 1970 Acct:[id number] Age/Sex: 53 / M ADM Date: 08/22/24 Loc: [place] 224-[address]: See Camacho M.D. 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 Measurements Intervals [place] Rate: 104 P: 53 VA: 132 QRS: 24 QRSD: 108 T: 52 QT: 358 QTc: 418 Interpretive Statements 1120 Sinus tachycardia 2440 Incomplete righ t bundle branch block abnormal ECG Compared to ECG 08/22/2024 12:13:46 Indeterminate axis n o longer present Heart rate has decreased Electronically Shreya d On 08-23-2024 20:18:12 EDT by BO PARTIDA M.D. Dictated By: BO PARTIDA Signed By: 08/23/242017 DD/ 1325 TD/TT: Airport Engineer: Troponin I High Sensitivity Reviewed date:08/22/2024 03:42:43 PM Interpretation: Performing Lab: Notes/Report: The [facility] , Troponin I High Sensitivity 199.6 4.0-76.1 pg/mL RESULTS CALLED TO MADELEINE MASON AT 1513 CUT-OFF POINTS HAVE BEEN ESTABLISHED BASED ON THE FOURTH UNIVERSAL DEFINITION OF MYOCARDIAL INFARCTION. THE UPPER REFERENCE LIMIT (URL) OF TROPONIN, DEFINED THE 99TH PERCENTILE OF cTnI DISTRIBUTION IN A REFERENCE POPULATION, HAS BEEN CONFIRMED THE DECISION THRESHOLD FOR MS DIAGNOSIS. 99TH PERCENTILE = 76.2 PG/ML NOTE: HIGH-SENSITIVITY TROPONIN ASSAY IS NOT INTENDED TO BE USED IN ISOLATION BUT SHOULD BE INTERPRETED IN CONJUNCTION WITH OTHER DIAGNOSTIC AND CLINICAL INFORMATION. Performing Lab: see note ML - [facility] LB LACTATE or LACTIC ACID Reviewed date:08/22/2024 03:42:43 PM Interpretation: Performing Lab: Notes/Report: The [facility] , Lactate/Lactic Acid 3.3 0.4-2.0 mmol/L RESULT S CALLED TO MADELEINE MASON AT 1513 Performing Lab: see note ML - [facility] LB ECG 12 lead Reviewed date:08/23/2024 08:46:32 PM Interpretation: Performing Lab: Notes/Report: Source Facility: [facility]-[address] [place] [address] [place] [address] Electrocardiograph Report Signed Patient: JERRY WILSON MR#: [id number] : 1970 Acct:[id number] Age/Sex: 53 / M ADM Date: 08/22/24 Loc: [place] 224-[address]: Doron Camacho M.D. Ordering Physician: Doron Camacho M.D. 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 Measurements Intervals [place] Rate: 98 P: 56 VA: 136 QRS: -9 QRSD: 110 T: 49 QT: 378 QTc: 433 Interpretive Statements 1100 Sinus rhythm 9110 normal ECG Compared to ECG 08/22/2024 13:25:07 Sinus tachycardia no longer present Electronically Signed On 08-23-2024 7:38:33 EDT by BO PARTIDA M.D. Dictated By: BO PARTIDA Signed By: 08/23/24 0738 DD/ 1839 TD/TT: Airport Engineer: [place] [address] Electrocardiograph Report Signed Patient: JERRY WILSON MR#: [id number] : 1970 Acct:[id number] Age/Sex: 53 / M ADM Date: 08/22/24 Loc: [place] 224-[address]: See Camacho M.D. Ordering Physician: Doron Camacho M.D. 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 Measurements Intervals [place] Rate: 98 P: 56 VA: 136 QRS: -9 QRSD: 110 T: 49 QT: 378 QTc: 433 Interpretive Statements 1100 Sinus rhythm 9110 normal ECG Compared to ECG 08/22/2024 13:25:07 Sinus tachycardia no longer present Electronically Shreya d On 08-23-2024 7:38:33 EDT by BO PARTIDA M.D. Dictated By: BO PARTIDA Signed By: 08/23/24 0738 DD/ 1839 TD/TT: Airport Engineer: Troponin I High Sensitivity Reviewed date:08/23/2024 08:46:32 PM Interpretation: Performing Lab: Notes/Report: The [facility] , Troponin I High Sensitivity 181.9 4.0-76.1 pg/mL RESULTS CALLED TO PARISA RICE RN @BY Hui Ayala at 2025 CUT-OFF POINTS HAVE BEEN ESTABLISHED BASED ON THE FOURTH UNIVERSAL DEFINITION OF MYOCARDIAL INFARCTION. THE UPPER REFERENCE LIMIT (URL) OF TROPONIN, DEFINED THE 99TH PERCENTILE OF cTnI DISTRIBUTION IN A REFERENCE POPULATION, HAS BEEN CONFIRMED THE DECISION THRESHOLD FOR MS DIAGNOSIS. 99TH PERCENTILE = 76.2 PG/ML NOTE: HIGH-SENSITIVITY TROPONIN ASSAY IS NOT INTENDED TO BE USED IN ISOLATION BUT SHOULD BE INTERPRETED IN CONJUNCTION WITH OTHER DIAGNOSTIC AND CLINICAL INFORMATION. Performing Lab: see note ML - [facility] LB LACTATE or LACTIC ACID Reviewed date:08/23/2024 08:46:32 PM Interpretation: Performing Lab: Notes/Report: [facility] , Lactate/Lactic Acid 2.9 0.4-2.0 mmol/L RESULTS CALLED TO PARISA RICE RN @BY Hui Ayala at 2025 Performing Lab: see note ML - [facility] LB BNP Reviewed date:08/23/2024 08:46:32 PM Interpretation: Performing Lab: Notes/Report: [facility] , NT Pro B Type Natriuretic Pept 4142.0 <=900.0 pg/mL RESULTS CALLED TO Parisa Rice RN Performing Lab: see note ML - [facility] LB CBC AUTO DIFF Reviewed date:08/23/2024 08:46:32 PM Interpretation: Performing Lab: Notes/Report: The [facility] , White Blood Count 11.9 4.0-11.0 [...] 3/uL Performing Lab: see note ML - [facility] LB MAGNESIUM Reviewed date:08/23/2024 08:46:32 PM Interpretation: Performing Lab: Notes/Report: [facility] , Magnesium 2.0 1.8-2.4 mg/dL Performing Lab: see note ML - [facility] LB PROF 14(COMP METB) Reviewed date:08/23/2024 08:46:32 PM Interpretation: Performing Lab: Notes/Report: [facility] , Sodium 133 136-145 mmol/L Potassium [...] 0.8 Performing Lab: see note ML - [facility] PTT Reviewed date:08/23/2024 08:46:32 PM Interpretation: Performing Lab: Notes/Report: The [facility] , Partial Thromboplastin Time 32.5 22.3-36.2 sec Performing Lab: see note ML - [facility] Prothrombin Time INR Reviewed date:08/23/2024 08:46:32 PM Interpretation: Performing Lab: Notes/Report: The [facility] , Prothrombin Time 11.1 9.0-11.6 sec INR 1.05 DESIRED INR: 2.0-3.0 CONDITIONS NOT LISTED BELOW 2.5-3.5 FOR PROSTHETIC HEART VALVE REPLACEMENT 2.5-3.5 RECURRENT THROMBOSIS Performing Lab: see note - [facility] Troponin I High Sensitivity Reviewed date:08/23/2024 08:46:32 PM Interpretation: Performing Lab: Notes/Report: [facility] , Troponin I High Sensitivity 213.0 4.0-76.1 pg/mL RESULTS CALLED TO Parisa Rice RN CUT-OFF POINTS HAVE BEEN ESTABLISHED BASED ON THE FOURTH UNIVERSAL DEFINITION OF MYOCARDIAL INFARCTION. THE UPPER REFERENCE LIMIT (URL) OF TROPONIN, DEFINED THE 99TH PERCENTILE OF cTnI DISTRIBUTION IN A REFERENCE POPULATION, HAS BEEN CONFIRMED THE DECISION THRESHOLD FOR MS DIAGNOSIS. 99TH PERCENTILE = 76.2 PG/ML NOTE: HIGH-SENSITIVITY TROPONIN ASSAY IS NOT INTENDED TO BE USED IN ISOLATION BUT SHOULD BE INTERPRETED IN CONJUNCTION WITH OTHER DIAGNOSTIC AND CLINICAL INFORMATION. Performing Lab: see note ML - [facility] LB E coli Shiga Toxin EIA Reviewed date:08/25/2024 01:10:39 PM Interpretation: Performing Lab: Notes/Report: [facility] , E coli Shiga Toxin EIA See Below For Report E coli Shiga Toxin EIA E coli Shiga Toxin EIA Negative E coli Shiga Toxin EIA E coli Shiga Toxin EIA Performed at: [facility] E coli Shiga Toxin EIA E coli Shiga Toxin EIA [address] [place], [place] [id number] E coli Shiga Toxin EIA E coli Shiga Toxin EIA Jumpbasting Machine Operator: Jn Enrique PhD, Phone: [phone] E coli Shiga Toxin EIA Performing Lab: see note - [facility] LB SEE REPORT - Rug Weaver Id information not found for OBX-specific vp of technology legend Campylobacter Culture Reviewed date:08/28/2024 01:17:56 PM Interpretation: Performing Lab: Notes/Report: [facility] , Campylobacter Culture See Below For Report Campylobacter Culture No Campylobacter species isolated. Performing Lab: see note - [facility] LB Venous Blood Gas Reviewed date:08/23/2024 08:46:32 PM Interpretation: Performing Lab: Notes/Report: [facility] , pH VBG 7.357 7.330-7.430 PCO2 VBG 34.8 40.0-52.0 mmHg Performing Lab: see note ML - [facility] LB XR chest 1V Reviewed date:08/23/2024 08:46:32 PM Interpretation: Performing Lab: Notes/Report: Source Facility: [facility]-[address] [place] [address] [place] [address] XRay Report Signed Patient: JERRY WILSON MR#: [id number] : 1970 Acct:[id number] Age/Sex: 53 / M ADM Date: 08/22/24 Loc: MS 224-[address]: Doron Camacho M.D. Ordering Physician: Doron Camacho M.D. Date of Service: 08/23/24 Procedure(s): XR chest 1V Accession Number(s): [id number] cc: Doron Camacho M.D. The [address] [address] Patient Name: JERRY WILSON MRN: [id number] date: 1970 Sex: M Assigned Patient Location: MS Current Patient Location: MS Accession/Order Number: [id number] Exam Date: 08/23/2024 08:23 Report Date: 08/23/2024 [...] Daphne Hutchinson M.D.08/23/2024 8:30 AM Dictation Location: [place] [address] Electronically authenticated by: [id number] Y Date: 08/23/2024 08:30 Dictated By: Daphne Hutchinson M.D. Signed By: 08/23/2432 DD/ 9 TD/TT: Airport Engineer: The [address] [address] XRay Report Signed Patient: JERRY WILSON MR#: [id number] : 1970 Acct:[id number] Age/Sex: 53 / M ADM Date: 08/22/24 Loc: MS 224-[address]: See Camacho M.D. Ordering Physician: Doron Camacho M.D. Date of Service: 08/23/24 Procedure(s): XR chest 1V Accession Number(s): [id number] cc: Doron Camacho M.D. The [place] [address] Patient Name: JERRY WILSON MRN: [id number] date: 1970 Sex: M Assigned Patient Location: MS Current Patient Loca tion: MS Accession/Order Numb er: [id number] Exam Date: 08/23/2024 08:23 Report Date: 08/23/2024 [...] Daphne Hutchinson M.D.08/23/2024 8:30 AM Dictation Location: [place] [address] Electronically authenticated by: [id number] Y Date: 08/23/2024 08:30 Dictated By: Daphne Hutchinson M.D. Signed By: 08/23/2432 DD/ 9 TD/TT: Airport Engineer: US garg BI Reviewed date:08/23/2024 08:46:32 PM Interpretation: Performing Lab: Notes/Report: Source Facility: [place] [address] [place] [address] Ultrasound Report Signed Patient: JERRY WILSON MR#: [id number] : 1970 Acct:[id number] Age/Sex: 53 / M ADM Date: 08/22/24 Loc: [place] 224-[address]: Doron Camacho M.D. Ordering Physician: Doron Camacho M.D. Date of Service: 08/23/24 Procedure(s): US renal BI Accession Number(s): [id number] cc: Doron Camacho M.D. [address] [address] Patient Name: JERRY WILSON MRN: [id number] date: 1970 Sex: M Assigned Patient Location: MS Current Patient Location: MS Accession/Order Number: [id number] Exam Date: 08/23/2024 09:09 Report Date: 08/23/2024 [...] Daphne Hutchinson M.D.08/23/2024 9:23 AM Dictation Location: [place] [address] Electronically authenticated by: [id number] Y Date: 08/23/2024 09:23 Dictated By: Daphne Hutchinson M.D. Signed By: 08/23/24925 DD/ 2 TD/TT: Airport Engineer: The [address] [address] Ultrasound Report Signed Patient: JERRY WILSON MR#: [id number] : 1970 Acct:[id number] Age/Sex: 53 / M ADM Date: 08/22/24 Loc: MS 224-[address]: See Camacho M.D. Ordering Physician: Doron Camacho M.D. Date of Service: 08/23/24 Procedure(s): US renal BI Accession Number(s): [id number] cc: Doron Camacho M.D. [place] [address] Patient Name: JERRY WILSON MRN: [id number] date: 1970 Sex: M Assigned Patient Location: MS Current Patient Loca tion: MS Accession/Order Numb er: [id number] Exam Date: 08/23/2024 09:09 Report Date: 08/23/2024 [...] Daphne Hutchinson M.D.08/23/2024 9:23 AM Dictation Location: [place] [address] Electronically authenticated by: [id number] Y Date: 08/23/2024 09:23 Dictated By: Daphne Hutchinson M.D. Signed By: 08/23/24925 DD/ 2 TD/TT: Airport Engineer: NATASHA chest 1V Reviewed date:08/23/2024 08:46:32 PM Interpretation: Performing Lab: Notes/Report: Source Facility: [place] [address] [place] [address] XRay Report Signed Patient: JERRY WILSON MR#: [id number] : 1970 Acct:[id number] Age/Sex: 53 / M ADM Date: 08/22/24 Loc: MS 224-[address]: Doron Camacho M.D. Ordering Physician: Doron Camacho M.D. Date of Service: 08/23/24 Procedure(s): XR chest 1V Accession Number(s): [id number] cc: Doron Camacho M.D. The [place] [id number] Patient Name: JERRY WILSON MRN: [id number] date: 1970 Sex: M Assigned Patient Location: MT Current Patient Location: [place] Accession/Order Number: [id number] Exam Date: 08/23/2024 10:24 Report Date: 08/23/2024 [...] Daphne Hutchinson M.D.08/23/2024 10:25 AM Dictation Location: [place] [address] Electronically authenticated by: [id number] Y Date: 08/23/2024 10:25 Dictated By: Daphne Hutchinson M.D. Signed By: 08/23/24 1028 DD/ 1025 TD/TT: Airport Engineer: [place] [address] XRay Report Signed Patient: JERRY WILSON MR#: [id number] : 1970 Acct:[id number] Age/Sex: 53 / M ADM Date: 08/22/24 Loc: MS 224-[address]: See Camacho M.D. Ordering Physician: Doron Camacho M.D. Date of Service: 08/23/24 Procedure(s): XR chest 1V Accession Number(s): [id number] cc: Doron Camacho M.D. The [address] [address] Patient Name: JERRY WILSON MRN: [id number] date: 1970 Sex: M Assigned Patient Location: MS Current Patient Loca tion: MS Accession/Order Numb er: [id number] Exam Date: 08/23/2024 10:24 Report Date: 08/23/2024 [...] Daphne Hutchinson M.D.08/23/2024 10:25 AM Dictation Location: [place] [address] Electronically authenticated by: [id number] Y Date: 08/23/2024 10:25 Dictated By: Daphne Hutchinson M.D. Signed By: 08/23/24 1028 DD/ 1025 TD/TT: Airport Engineer: Troponin I High Sensitivity Reviewed date:08/23/2024 08:46:32 PM Interpretation: Performing Lab: Notes/Report: LINE DRAW The [facility] , Troponin I High Sensitivity 811.1 4.0-76.1 pg/mL RESULTS CALLED TO LOU LOPEZ RN CUT-OFF POINTS HAVE BEEN ESTABLISHED BASED ON THE FOURTH UNIVERSAL DEFINITION OF MYOCARDIAL INFARCTION. THE UPPER REFERENCE LIMIT (URL) OF TROPONIN, DEFINED THE 99TH PERCENTILE OF cTnI DISTRIBUTION IN A REFERENCE POPULATION, HAS BEEN CONFIRMED THE DECISION THRESHOLD FOR MS DIAGNOSIS. 99TH PERCENTILE = 76.2 PG/ML NOTE: HIGH-SENSITIVITY TROPONIN ASSAY IS NOT INTENDED TO BE USED IN ISOLATION BUT SHOULD BE INTERPRETED IN CONJUNCTION WITH OTHER DIAGNOSTIC AND CLINICAL INFORMATION. Performing Lab: see note - [facility] LB E coli Shiga Toxin EIA Reviewed date:08/28/2024 01:17:56 PM Interpretation: Performing Lab: Notes/Report: [facility] , E coli Shiga Toxin EIA See Below For Report E coli Shiga Toxin EIA E coli Shiga Toxin EIA Negative E coli Shiga Toxin EIA E coli Shiga Toxin EIA Performed at: [facility] E coli Shiga Toxin EIA E coli Shiga Toxin EIA [address] [place], [place] [id number] E coli Shiga Toxin EIA E coli Shiga Toxin EIA Jumpbasting Machine Operator: Jn Enrique PhD, Phone: [phone] E coli Shiga Toxin EIA Performing Lab: see note - [facility] LB SEE REPORT - Rug Weaver Id information not found for OBX-specific vp of technology legend CBC AUTO DIFF Reviewed date:08/24/2024 01:35:13 PM Interpretation: Performing Lab: Notes/Report: [facility] , White Blood Count 8.9 4.0-11.0 [...] 3/uL Performing Lab: see note ML - [facility] LB MAGNESIUM Reviewed date:08/24/2024 01:35:13 PM Interpretation: Performing Lab: Notes/Report: [facility] , Magnesium 2.2 1.8-2.4 mg/dL Performing Lab: see note - [facility] PROF 14(COMP METB) Reviewed date:08/24/2024 01:35:13 PM Interpretation: Performing Lab: Notes/Report: The [facility] , Sodium 138 136-145 mmol/L Potassium [...] 0.6 Performing Lab: see note ML - [facility] LB PTT Reviewed date:08/24/2024 01:35:13 PM Interpretation: Performing Lab: Notes/Report: [facility] , Partial Thromboplastin Time 30.4 22.3-36.2 sec Performing Lab: see note ML - [facility] LB Troponin I High Sensitivity Reviewed date:08/24/2024 01:35:13 PM Interpretation: Performing Lab: Notes/Report: [facility] , Troponin I High Sensitivity 352.5 4.0-76.1 pg/mL RESULTS CALLED TO KEISHA AIKEN RN @BY Hui Ayala at 0637 CUT-OFF POINTS HAVE BEEN ESTABLISHED BASED ON THE FOURTH UNIVERSAL DEFINITION OF MYOCARDIAL INFARCTION. THE UPPER REFERENCE LIMIT (URL) OF TROPONIN, DEFINED THE 99TH PERCENTILE OF cTnI DISTRIBUTION IN A REFERENCE POPULATION, HAS BEEN CONFIRMED THE DECISION THRESHOLD FOR MS DIAGNOSIS. 99TH PERCENTILE = 76.2 PG/ML NOTE: HIGH-SENSITIVITY TROPONIN ASSAY IS NOT INTENDED TO BE USED IN ISOLATION BUT SHOULD BE INTERPRETED IN CONJUNCTION WITH OTHER DIAGNOSTIC AND CLINICAL INFORMATION. Performing Lab: see note ML - [facility] LB Venous Blood Gas Reviewed date:08/24/2024 01:35:13 PM Interpretation: Performing Lab: Notes/Report: [facility] , pH VBG 7.382 7.330-7.430 PCO2 VBG 34.7 40.0-52.0 mmHg Performing Lab: see note ML - [facility] LB BNP Reviewed date:08/25/2024 09:54:11 AM Interpretation: Performing Lab: Notes/Report: [facility] , NT Pro B Type Natriuretic Pept 196.0 <=900.0 pg/mL Performing Lab: see note ML - [facility] LB PROF 14(COMP METB) Reviewed date:08/25/2024 09:54:11 AM Interpretation: Performing Lab: Notes/Report: [facility] , Sodium 138 136-145 mmol/L Potassium [...] 0.6 Performing Lab: see note ML - [facility] Troponin I High Sensitivity Reviewed date:08/25/2024 09:54:11 AM Interpretation: Performing Lab: Notes/Report: [facility] , Troponin I High Sensitivity 212.0 4.0-76.1 pg/mL RESULTS CALLED TO fredy glover rn CUT-OFF POINTS HAVE BEEN ESTABLISHED BASED ON THE FOURTH UNIVERSAL DEFINITION OF MYOCARDIAL INFARCTION. THE UPPER REFERENCE LIMIT (URL) OF TROPONIN, DEFINED THE 99TH PERCENTILE OF cTnI DISTRIBUTION IN A REFERENCE POPULATION, HAS BEEN CONFIRMED THE DECISION THRESHOLD FOR MS DIAGNOSIS. 99TH PERCENTILE = 76.2 PG/ML NOTE: HIGH-SENSITIVITY TROPONIN ASSAY IS NOT INTENDED TO BE USED IN ISOLATION BUT SHOULD BE INTERPRETED IN CONJUNCTION WITH OTHER DIAGNOSTIC AND CLINICAL INFORMATION. Performing Lab: see note ML - [facility] US extremity nonvascular LT Reviewed date:10/24/2024 12:43:14 PM Interpretation: Performing Lab: Notes/Report: Source Facility: [place] [address] [place] [address] Ultrasound Report Signed Patient: JERRY WILSON MR#: [id number] : 1970 Acct:[id number] Age/Sex: 54 / M ADM Date: 10/23/24 Loc: US Attending Dr: Doron Camacho M.D. Ordering Physician: Doron Camacho M.D. Date of Service: 10/23/24 Procedure(s): US extremity nonvascular RT Accession Number(s): [id number] cc: Doron Camacho M.D. [place] [address] Patient Name: JERRY WILSON MRN: [id number] date: 1970 Sex: M Assigned Patient Location: US Current Patient Location: US Accession/Order Number: [id number] Exam Date: 10/23/2024 10:36 Report Date: 10/23/2024 10:37 At the request of: DORON CAMACHO MD Procedure: US extremity nonvascular RT The right axillary ultrasound HISTORY: Lump felt in the right axillary region one month ago. No lymphadenopathy. No solid lesion or fluid collection. US/US extremity nonvascular RT IMPRESSION: No focal abnormality. Impression dictated by: Maunel Velazquez M.D. 10/23/2024 10:37 AM Dictation Location: [place] [address] Electronically authenticated by: [id number] Y Date: 10/23/2024 10:37 Dictated By: Manuel Velazquez D.O. Signed By: 10/23/24 1040 DD/ 1037 TD/TT: Airport Engineer: [place] [address] Ultrasound Report Signed Patient: JERRY WILSON MR#: [id number] : 1970 Acct:[id number] Age/Sex: 54 / M ADM Date: 10/23/24 Loc: US Attending Dr: See Camacho M.D. Ordering Physician: Doron Camacho M.D. Date of Service: 10/23/24 Procedure(s): US extremity nonvascular RT Accession Number(s): [id number] cc: Doron Camacho M.D. [address] [address] Patient Name: JERRY WILSON MRN: [id number] date: 1970 Sex: M Assigned Patient Location: US Current Patient Loca tion: US Accession/Order Numb er: [id number] Exam Date: 10/23/2024 10:36 Report Date: 10/23/2024 [...] Velazquez M.D. 10/23/2024 10:37 AM Dictation Location: [place] [address] Electronically authenticated by: [id number] Y Date: 10/23/2024 10:37 Dictated By: Rangel Velazquez D.O. Signed By: 10/23/24 1040 DD/ 1037 TD/TT: Airport Engineer: CT abdomen pelvis wo con Reviewed date:11/01/2024 08:19:00 PM Interpretation: Performing Lab: Notes/Report: Source Facility: [place] [address] CT Scan Report Signed Patient: JERRY WILSON MR#: [id number] : 1970 Acct:[id number] Age/Sex: 54 / M ADM Date: 11/01/24 Loc: CT Attending Dr: Non-Staff Physician Ayana Ordering Physician: Sofie Durbin M.D. Date of Service: 11/01/24 Procedure(s): CT abdomen pelvis wo con Accession Number(s): [id number] cc: Doron Camacho M.D. [place] [address] Patient Name: JERRY WILSON MRN: [facility]:[id number] date: 1970 Sex: M Assigned Patient Location: CT Current Patient Location: CT Accession/Order Number: [id number] Exam Date: 11/01/2024 13:35 Report Date: 11/01/2024 13:44 At the request of: SOFIE DURBIN MD Procedure: CT abdomen pelvis wo con CT abdomen pelvis wo con 11/01/2024 1:19 PM SIGNS AND SYMPTOMS: Renal stones, follow-up TECHNIQUE: Multidetector ct axial images of the abdomen and pelvis were obtained without IV contrast. Multiplanar reformats were performed and reviewed to further define anatomy and possible pathology. CT was performed with one or more of the following dose reduction techniques: Automated exposure control, adjustment of the mA and/or kV according to patient size, or use of iterative reconstruction technique. COMPARISON: 08/22/2024 FINDINGS: Lower Chest: There is a 2 mm noncalcified nodule in the right lower lobe. Prominent lower mediastinal/paraesophageal lymph nodes are noted measuring up to 3.8 cm and 1.7 cm in short axis. These are unchanged. ABDOMEN: Liver: Within normal limits. Bile Ducts: Normal caliber. Gallbladder: No calcified gallstones. Normal caliber wall. Pancreas: Within normal limits. Spleen: Within normal limits. Adrenals: Within normal limits. Kidneys: Nonobstructing right-sided renal stones are noted measuring up to 7 mm in greatest dimension. No hydronephrosis. There is a 3.7 cm mass like structure along the right renal cortex which is unchanged. Pelvis: Reproductive Organs: No pelvic masses. Ureters: Within normal limits. Bladder: Within normal limits. Bowel: Normal caliber. There is a normal appendix in the right lower quadrant. Mesenteric Lymph Nodes: No enlarged mesenteric lymph nodes. Peritoneum: No ascites or free air, no fluid collection. Vessels: Filling within normal limits Retroperitoneum: Within normal limits. Abdominal Wall: Within normal limits. Bones: Degenerative changes are noted in the thoracic spine. There is posterior fusion of the lower lumbar spine. CT/CT abdomen pelvis wo con IMPRESSION: Prominent lower mediastinal/paraesophageal lymph nodes are noted measuring up to 3.8 cm and 1.7 cm in short axis. These are unchanged. Nonobstructing right-sided renal stones are noted measuring up to 7 mm in greatest dimension. This is unchanged. No hydronephrosis. There is a 3.7 cm mass like structure along the right renal cortex which is unchanged. This is better demonstrated on the previous contrast-enhanced CT. Impression dictated by: Alexx Pruitt M.D. 11/01/2024 1:44 PM Dictation Location: [place] [address] Electronically authenticated by: [id number] Y Date: 11/01/2024 13:44 Dictated By: Alexx Pruitt M.D. Signed By: 11/01/24 1347 DD/ 1344 TD/TT: Airport Engineer: [place] [address] CT Scan Report Signed Patient: JERRY WILSON MR#: [id number] : 1970 Acct:[id number] Age/Sex: 54 / M ADM Date: 11/01/24 Loc: CT Attending Dr: Cynthia Brownlee M.D. Ordering Physician: Sofie Durbin M.D. Date of Service: 11/01/24 Procedure(s): CT abd omen pelvis wo con Accession Number(s): [id number] cc: Doron Camacho M.D. [facility] [address] [place], [place] [address] Patient Name: JERRY WILSON MRN: [id number] date: 1970 Sex: M Assigned Patient Location: CT Current Patient Loca tion: CT Accession/Order Numb er: [id number] Exam Date: 11/01/2024 13:35 Report Date: 11/01/2024 13:44 At the request of: SOFIE DURBIN MD Procedure: CT abdome n pelvis wo con CT abdomen pelvis wo con 11/01/2024 1:19 PM SIGNS AND SYMPTOMS: Renal stones, follow-up TECHNIQUE: Multidete ctor ct axial images of the abdomen and pelvis were obtained without IV contrast. Multiplanar reformats were performed and reviewed to further define anatomy and possible pathology. CT was performed with one or more of the following dose reduction techniques: Automated exposure control, adjustment of the mA and/or kV according to patient size, or use of iterative reconstruction technique. COMPARISON: 08/22/2024 FINDINGS: Lower Chest: There i s a 2 mm noncalcified nodule in the right lower lobe. Prominent lower mediastinal/paraesophagea l lymph nodes are noted measuring up to 3.8 cm and 1.7 cm in short axis. These are unchanged. ABDOMEN: Liver: Within normal limits. Bile Ducts: Normal caliber. Gallbladder: No calc ified gallstones. Normal caliber wall. Pancreas: Within nor mal limits. Spleen: Within patricia l limits. Adrenals: Within nor mal limits. Kidneys: Nonobstruct ing right-sided renal stones are noted measuring up to 7 mm in greatest dimen joselin. No hydronephrosis. There is a 3.7 cm mass like structure along the right renal cortex which is unchanged. Pelvis: Reproductive Organs: No pelvic masses. Ureters: Within norm al limits. Bladder: Within norm al limits. Bowel: Normal calibe r. There is a normal appendix in the right lower quadrant. Mesenteric Lymph Nod es: No enlarged mesenteric lymph nodes. Peritoneum: No ascit es or free air, no fluid collection. Vessels: Filling wit hin normal limits Retroperitoneum: Wit hin normal limits. Abdominal Wall: With in normal limits. Bones: Degenerative changes are noted in the thoracic spine. There is posterior fusion of the lower lumbar spine. C T/CT abdomen pelvis wo con IMPRESSION: Prominent lower mediastinal/paraesophagea l lymph nodes are noted measuring up to 3.8 cm and 1.7 cm in short axis. These are unchanged. Nonobstructing right-sided renal stones are noted measuring up to 7 mm in greatest dimension. This is unchanged. No hydronephrosis. There is a 3.7 cm ma ss like structure along the right renal cortex which is unchanged. This is b talita demonstrated on the previous contrast-enhanced CT. Impression dictated by: Alexx Pruitt M.D. 11/01/2024 1:44 PM Dictation Location: [place] [address] Electronically authenticated by: [id number] Y Date: 11/01/2024 13:44 Dictated By: Alexx Pruitt M.D. Signed By: 11/01/24 1347 DD/ 1344 TD/TT: Airport Engineer: CAMPOS tegan perf SPECT rest str Reviewed date:09/15/2024 08:00:30 PM Interpretation: Performing Lab: Notes/Report: Source Facility: [place] [address] [place] [address] Nuclear Medicine Report Signed Patient: JERRY WILSON MR#: [id number] : 1970 Acct:[id number] Age/Sex: 53 / M ADM Date: 09/14/24 Loc: CARD Attending Dr: Doron Camacho M.D. Ordering Physician: Doron Camacho M.D. Date of Service: 09/14/24 Procedure(s): NM tegan perf SPECT rest str Accession Number(s): [id number] cc: Doron Camacho M.D. Patient Name: JERRY WILSON MR#: [id number] : 1970 Exam Date: 09/14/2024 Ordering Doctor: DR DORON CAMACHO . RADIOLOGY REPORT PROCEDURE: NM TEGAN PERF SPECT REST STR COMPARISON: None. INDICATIONS: [...] the study was pending per attending physician [facility] . For more details please see separate [...] M.D. Signed By: 09/15/241849 DD/ 184 TD/TT: Airport Engineer: [place] [address] Nuclear Medicine Report Signed Patient: JERRY WILSON MR#: [id number] : 1970 Acct:[id number] Age/Sex: 53 / M ADM Date: 09/14/24 Loc: CARD Attending Dr: See Camacho M.D. Ordering Physician: Doron Camacho M.D. Date of Service: 09/14/24 Procedure(s): NM tegan perf SPECT rest str Accession Number(s): [id number] cc: Doron Camacho M.D. Patient Name: JERRY WILSON MR#: [id number] : 1970 Exam Date: 09/14/2024 Ordering Doctor: DR DORON CAMACHO . RADIOLOGY REPORT PROCEDURE: NM TEGAN PE RF SPECT REST STR COMPARISON: None. [...] study was pending pe r attending physician [facility] . For more details please see separate [...] M.D. Signed By: 09/15/241849 DD/ 48 TD/TT: Airport Engineer: CBC AUTO DIFF Reviewed date:08/25/2024 09:54:11 AM Interpretation: Performing Lab: Notes/Report: [facility] , White Blood Count 8.3 4.0-11.0 [...] 3/uL Performing Lab: see note ML - [facility] LB Prothrombin Time INR Reviewed date:08/24/2024 01:35:13 PM Interpretation: Performing Lab: Notes/Report: [facility] , Prothrombin Time 10.9 9.0-11.6 sec INR 1.03 DESIRED INR: 2.0-3.0 CONDITIONS NOT LISTED BELOW 2.5-3.5 FOR PROSTHETIC HEART VALVE REPLACEMENT 2.5-3.5 RECURRENT THROMBOSIS Performing Lab: see note ML - [facility] LB BNP Reviewed date:08/24/2024 01:35:13 PM Interpretation: Performing Lab: Notes/Report: [facility] , NT Pro B Type Natriuretic Pept 508.0 <=900.0 pg/mL Performing Lab: see note - [facility] LB Troponin I High Sensitivity Reviewed date:08/23/2024 08:46:32 PM Interpretation: Performing Lab: Notes/Report: [facility] , Troponin I High Sensitivity 728.3 4.0-76.1 pg/mL RESULTS CALLED TO LOU LOPEZ RN CUT-OFF POINTS HAVE BEEN ESTABLISHED BASED ON THE FOURTH UNIVERSAL DEFINITION OF MYOCARDIAL INFARCTION. THE UPPER REFERENCE LIMIT (URL) OF TROPONIN, DEFINED THE 99TH PERCENTILE OF cTnI DISTRIBUTION IN A REFERENCE POPULATION, HAS BEEN CONFIRMED THE DECISION THRESHOLD FOR MS DIAGNOSIS. 99TH PERCENTILE = 76.2 PG/ML NOTE: HIGH-SENSITIVITY TROPONIN ASSAY IS NOT INTENDED TO BE USED IN ISOLATION BUT SHOULD BE INTERPRETED IN CONJUNCTION WITH OTHER DIAGNOSTIC AND CLINICAL INFORMATION. Performing Lab: see note ML - [facility] LB BNP Reviewed date:08/23/2024 08:46:32 PM Interpretation: Performing Lab: Notes/Report: [facility] , NT Pro B Type Natriuretic Pept 1328.0 <=900.0 pg/mL RESULTS CALLED TO Lou Lopez RN Performing Lab: see note ML - [facility] Troponin I High Sensitivity Reviewed date:08/23/2024 08:46:32 PM Interpretation: Performing Lab: Notes/Report: [facility] , Troponin I High Sensitivity 735.8 4.0-76.1 pg/mL RESULTS CALLED TO Lou Lopez RN CUT-OFF POINTS HAVE BEEN ESTABLISHED BASED ON THE FOURTH UNIVERSAL DEFINITION OF MYOCARDIAL INFARCTION. THE UPPER REFERENCE LIMIT (URL) OF TROPONIN, DEFINED THE 99TH PERCENTILE OF cTnI DISTRIBUTION IN A REFERENCE POPULATION, HAS BEEN CONFIRMED THE DECISION THRESHOLD FOR MS DIAGNOSIS. 99TH PERCENTILE = 76.2 PG/ML NOTE: HIGH-SENSITIVITY TROPONIN ASSAY IS NOT INTENDED TO BE USED IN ISOLATION BUT SHOULD BE INTERPRETED IN CONJUNCTION WITH OTHER DIAGNOSTIC AND CLINICAL INFORMATION. Performing Lab: see note ML - [facility] PROF 14(COMP METB) Reviewed date:08/23/2024 08:46:32 PM Interpretation: Performing Lab: Notes/Report: [facility] , Sodium 135 136-145 mmol/L Potassium [...] Performing Lab: see note ML - [facility] CA echo limited Reviewed date:08/23/2024 08:46:32 PM Interpretation: Performing Lab: Notes/Report: Source Facility: [place] [address] Cardiology Report Signed Patient: JERRY WILSON MR#: [id number] : 1970 Acct:[id number] Age/Sex: 53 / M ADM Date: 08/22/24 Loc: MS 224-[address]: Doron Camacho M.D. Ordering Physician: Doron Camacho M.D. Date of Service: 08/23/24 Procedure(s): CA echo limited Accession Number(s): [id number] cc: Doron Camacho M.D. Patient Name: JERRY WILSON MR#: [id number] : 1970 Exam Date: 08/23/2024 Ordering Doctor: [...] Signed By: 08/23/24 1439 DD/ 1438 TD/TT: Airport Engineer: [place] [address] Cardiology Report Signed Patient: JERRY WILSON MR#: [id number] : 1970 Acct:[id number] Age/Sex: 53 / M ADM Date: 08/22/24 Loc: MS 224-[address]: See Camacho M.D. Ordering Physician: Doron Camacho M.D. Date of Service: 08/23/24 Procedure(s): CA ech o limited Accession Number(s): [id number] cc: Doron Camacho M.D. Patient Name: JERRY WILSON MR#: [id number] : 1970 Exam Date: 08/23/2024 Ordering Doctor: [...] Signed By: 08/23/24 1439 DD/ 1438 TD/TT: Airport Engineer: Occult Blood* Reviewed date:08/23/2024 08:46:32 PM Interpretation: Performing Lab: Notes/Report: [facility] , Occult Blood Positive Performing Lab: see note ML - [facility] LB Salmonella/Shigella Screen Reviewed date:08/28/2024 01:17:56 PM Interpretation: Performing Lab: Notes/Report: [facility] , Salmonella/Shigella Screen See Below For Report Salmonella/Shigella Screen Salmonella/Shigella Screen No Salmonella or Shigella recovered. Salmonella/Shigella Screen Performing Lab: see note LC - [facility] LB Troponin I High Sensitivity Reviewed date:08/22/2024 06:15:26 PM Interpretation: Performing Lab: Notes/Report: [facility] , Troponin I High Sensitivity 186.9 4.0-76.1 pg/mL RESULTS CALLED TO JUAN DOTY RN AT 1727 CUT-OFF POINTS HAVE BEEN ESTABLISHED BASED ON THE FOURTH UNIVERSAL DEFINITION OF MYOCARDIAL INFARCTION. THE UPPER REFERENCE LIMIT (URL) OF TROPONIN, DEFINED THE 99TH PERCENTILE OF cTnI DISTRIBUTION IN A REFERENCE POPULATION, HAS BEEN CONFIRMED THE DECISION THRESHOLD FOR MS DIAGNOSIS. 99TH PERCENTILE = 76.2 PG/ML NOTE: HIGH-SENSITIVITY TROPONIN ASSAY IS NOT INTENDED TO BE USED IN ISOLATION BUT SHOULD BE INTERPRETED IN CONJUNCTION WITH OTHER DIAGNOSTIC AND CLINICAL INFORMATION. Performing Lab: see note ML - [facility] LB ECG 12 lead Reviewed date:08/23/2024 08:46:32 PM Interpretation: Performing Lab: Notes/Report: Source Facility: [facility] [place] [address] [place] [address] Electrocardiograph Report Signed Patient: JERRY WILSON MR#: [id number] : 1970 Acct:[id number] Age/Sex: 53 / M ADM Date: 08/22/24 Loc: MS 224-[address]: Doron Camacho M.D. Ordering Physician: Manuel Conklin Date of Service: 08/22/24 Procedure(s): ECG 12 lead Accession Number(s): [id number] cc: [facility] Test Date: 2024-08-22 Pat Name: JERRY WILSON Department: Room: - Gender: Male [employer]: : 1970 Requested By: 0919 Order Number: [id number] Reading MD: BO PARTIDA M.D. Measurements Intervals [place] Rate: 165 P: -57102 VA: -07180 QRS: 250 QRSD: 92 T: 52 QT: 352 QTc: 443 Interpretive Statements Sinus tachycardia 2440 Incomplete right bundle branch block 7300 Indeterminate axis 9140 abnormal rhythm ECG Compared to ECG 09/13/2022 12:16:17 Heart rate has increased Electronically Signed On 08-23-2024 20:17:43 EDT by BO PARTIDA M.D. Dictated By: BO PARTIDA Signed By: 08/23/242017 DD/ 1213 TD/TT: Airport Engineer: [place] [address] Electrocardiograph Report Signed Patient: JERRY WILSON MR#: [id number] : 1970 Acct:[id number] Age/Sex: 53 / M ADM Date: 08/22/24 Loc: MS 224-[address]: See Camacho M.D. Ordering Physician: Manuel Conklin Date of Service: 08/22/24 Procedure(s): ECG 12 lead Accession Number(s): [id number] cc: [facility] Test Date: 2024-08-22 Pat Name: JERRY WILSON Department: 89 Room: - Gender: Male [employer] Winder: : 1970 Requ ested By: 0919 Order Number: [id number] Reading MD: BO PARTIDA M.D. Measurements Intervals [place] Rate: 165 P: -60537 VA: -72079 QRS: 250 QRSD: 92 T: 52 QT: 352 QTc: 443 Interpretive Statements Sinus tachycardia 2440 Incomplete righ t bundle branch block 7300 Indeterminate axis 9140 abnormal rhy thm ECG Compared to ECG 09/13/2022 12:16:17 Heart rate has increased Electronically Shreya d On 08-23-2024 20:17:43 EDT by BO PARTIDA M.D. Dictated By: BO PARTIDA Signed By: 08/23/242017 DD/ 1213 TD/TT: Airport Engineer: Urine Culture - [facility] Reviewed date:08/26/2024 09:18:45 PM Interpretation: Performing Lab: Notes/Report: [facility] , Urine Culture - [facility] See Below For Report Urine Culture - [facility] Testing performed at [facility] O:ENTFAC Isolated Urine Culture - [facility] [place] Count Organism: 1.1 Antibiotic Interpretation ALAINA Status Urine Culture - [facility] [address], [place] [address] Urine Culture - [facility] Testing performed at [facility] O:ENTFAC Isolated Urine Culture - [facility] [place] Count Organism: 1.1 Antibiotic Interpretation ALAINA Status Urine Culture - [facility] See Below For Report Urine Culture - [facility] Testing performed at [facility] O:ENTFAC Isolated Urine Culture - [facility] [place] Count Organism: 1.1 Antibiotic Interpretation ALAINA Status Urine Culture - [facility] See Below For Report Urine Culture - [facility] Testing performed at [facility] O:ENTFAC Isolated Urine Culture - [facility] [place] Count Organism: 1.1 Antibiotic Interpretation ALAINA Status Urine Culture - [facility] >100,000 Urine Culture - [facility] Testing performed at [facility] O:ENTFAC Isolated Urine Culture - [facility] [place] Count Organism: 1.1 Antibiotic Interpretation ALAINA Status Urine Culture - [facility] See Below For Report Urine Culture - [facility] Testing performed at [facility] O:ENTFAC Isolated Urine Culture - [facility] [place] Count Organism: 1.1 Antibiotic Interpretation ALAINA Status Urine Culture - [facility] Ampicillin S F Urine Culture - [facility] Testing performed at [facility] O:ENTFAC Isolated Urine Culture - [facility] [place] Count Organism: 1.1 Antibiotic Interpretation ALAINA Status Urine Culture - [facility] Daptomycin S F Urine Culture - [facility] Testing performed at [facility] O:ENTFAC Isolated Urine Culture - [facility] [place] Count Organism: 1.1 Antibiotic Interpretation ALAINA Status Urine Culture - [facility] Levofloxacin S F Urine Culture - [facility] Testing performed at [facility] O:ENTFAC Isolated Urine Culture - [facility] [place] Count Organism: 1.1 Antibiotic Interpretation ALAINA Status Urine Culture - [facility] Linezolid S F Urine Culture - [facility] Testing performed at [facility] O:ENTFAC Isolated Urine Culture - [facility] [place] Count Organism: 1.1 Antibiotic Interpretation ALAINA Status Urine Culture - [facility] Nitrofurantoin S F Urine Culture - [facility] Testing performed at [facility] O:ENTFAC Isolated Urine Culture - [facility] [place] Count Organism: 1.1 Antibiotic Interpretation ALAINA Status Urine Culture - [facility] Penicillin S F Urine Culture - [facility] Testing performed at [facility] O:ENTFAC Isolated Urine Culture - [facility] [place] Count Organism: 1.1 Antibiotic Interpretation ALAINA Status Urine Culture - [facility] Tetracycline S F Urine Culture - [facility] Testing performed at [facility] O:ENTFAC Isolated Urine Culture - [facility] [place] Count Organism: 1.1 Antibiotic Interpretation ALAINA Status Urine Culture - [facility] Vancomycin S F Urine Culture - [facility] Testing performed at [facility] O:ENTFAC Isolated Urine Culture - [facility] [place] Count Organism: 1.1 Antibiotic Interpretation ALAINA Status Urine Culture - [facility] Ciprofloxacin S F Urine Culture - [facility] Testing performed at [facility] O:ENTFAC Isolated Urine Culture - [facility] [place] Count Organism: 1.1 Antibiotic Interpretation ALAINA Status Performing Lab: see note ML - [facility] LB SEE REPORT - Rug Weaver Id information not found for OBX-specific vp of technology legend UA Micro, reflex to culture Reviewed date:08/22/2024 03:42:43 PM Interpretation: Performing Lab: Notes/Report: [facility] , Color Urine PINK YELLOW Clarity Urine SL CLOUDY CLEAR Specific [place] Urine 1.020 1.005-1.025 pH Urine 6.0 5.0-9.0 [...] Culture Indicated NO Performing Lab: see note - [facility] Venous Blood Gas Reviewed date:08/22/2024 03:42:43 PM Interpretation: Performing Lab: Notes/Report: [facility] , pH VBG 7.441 7.330-7.430 PCO2 VBG 16.8 40.0-52.0 mmHg Performing Lab: see note - [facility] Troponin I High Sensitivity Reviewed date:08/22/2024 03:42:43 PM Interpretation: Performing Lab: Notes/Report: [facility] , Troponin I High Sensitivity 123.5 4.0-76.1 pg/mL RESULTS CALLED TO DR CONKLIN AT 1325 CUT-OFF POINTS HAVE BEEN ESTABLISHED BASED ON THE FOURTH UNIVERSAL DEFINITION OF MYOCARDIAL INFARCTION. THE UPPER REFERENCE LIMIT (URL) OF TROPONIN, DEFINED THE 99TH PERCENTILE OF cTnI DISTRIBUTION IN A REFERENCE POPULATION, HAS BEEN CONFIRMED THE DECISION THRESHOLD FOR MS DIAGNOSIS. 99TH PERCENTILE = 76.2 PG/ML NOTE: HIGH-SENSITIVITY TROPONIN ASSAY IS NOT INTENDED TO BE USED IN ISOLATION BUT SHOULD BE INTERPRETED IN CONJUNCTION WITH OTHER DIAGNOSTIC AND CLINICAL INFORMATION. Performing Lab: see note - [facility] LB Manual Differential Reviewed date:08/22/2024 03:42:43 PM Interpretation: Performing Lab: Notes/Report: [facility] , Segmented Neutrophils % Manual 79.0 [...] Performing Lab: see note ML - [facility] LB Prothrombin Time INR Reviewed date:08/22/2024 03:42:43 PM Interpretation: Performing Lab: Notes/Report: [facility] , Prothrombin Time 11.7 9.0-11.6 sec INR 1.12 DESIRED INR: 2.0-3.0 CONDITIONS NOT LISTED BELOW 2.5-3.5 FOR PROSTHETIC HEART VALVE REPLACEMENT 2.5-3.5 RECURRENT THROMBOSIS Performing Lab: see note - [facility] LB PROF 14(COMP METB) Reviewed date:08/22/2024 03:42:43 PM Interpretation: Performing Lab: Notes/Report: [facility] , Sodium 126 136-145 mmol/L Potassium [...] 0.7 Performing Lab: see note ML - [facility] LB MAGNESIUM Reviewed date:08/22/2024 03:42:43 PM Interpretation: Performing Lab: Notes/Report: [facility] , Magnesium 1.3 1.8-2.4 mg/dL Performing Lab: see note ML - [facility] LB LIPASE Reviewed date:08/22/2024 06:15:26 PM Interpretation: Performing Lab: Notes/Report: [facility] , Lipase 33.0 16.0-77.0 U/L Performing Lab: see note ML - [facility] LB LACTATE or LACTIC ACID Reviewed date:08/22/2024 03:42:43 PM Interpretation: Performing Lab: Notes/Report: [facility] , Lactate/Lactic Acid 6.1 0.4-2.0 mmol/L RESULT S CALLED TO DR. CONKLIN AT 1313 Performing Lab: see note ML - [facility] CBC AUTO DIFF Reviewed date:08/22/2024 03:42:43 PM Interpretation: Performing Lab: Notes/Report: [facility] , White Blood Count 23.7 4.0-11.0 [...] fL Performing Lab: see note ML - [facility] LB BNP Reviewed date:08/22/2024 03:42:43 PM Interpretation: Performing Lab: Notes/Report: [facility] , NT Pro B Type Natriuretic Pept 2146.0 <=900.0 pg/mL RESULTS CALLED TO DR CONKLIN AT 1325 Performing Lab: see note ML - [facility] LB AMYLASE Reviewed date:08/22/2024 06:15:26 PM Interpretation: Performing Lab: Notes/Report: [facility] , Amylase 44 25-115 U/L Performing Lab: see note ML - [facility] LB US renal BI Reviewed date:04/05/2024 02:34:20 PM Interpretation: Performing Lab: Notes/Report: Source Facility: [facility]-[address] [place] [address] [place] [address] Ultrasound Report Signed Patient: JERRY WILSON MR#: [id number] : 1970 Acct:[id number] Age/Sex: 53 / M ADM Date: 04/02/24 Loc: US Attending Dr: La Nena MASON Ordering Physician: La Nena Kaplan Date of Service: 04/02/24 Procedure(s): US renal BI Accession Number(s): [id number] cc: Doron Camacho M.D.; La Nena Kaplan [address] [address] Patient Name: JERRY WILSON MRN: [id number] date: 1970 Sex: M Assigned Patient Location: US Current Patient Location: US Accession/Order Number: [id number] Exam Date: 04/02/2024 09:03 Report Date: 04/03/2024 [...] 1. Bilateral nonobstructing nephrolithiasis. Electronically authenticated by: JEANINE AWAN Date: 04/03/2024 07:02 Dictated By: Jeanine Awan M.D. Signed By: 04/03/24703 DD/ 1 TD/TT: Airport Engineer: The [address] [address] Ultrasound Report Signed Patient: JERRY WILSON MR#: [id number] : 1970 Acct:[id number] Age/Sex: 53 / M ADM Date: 04/02/24 Loc: US Attending Dr: Arsenio MASON Ordering Physician: La Nena Kaplan Date of Service: 04/02/24 Procedure(s): US renal BI Accession Number(s): [id number] cc: Doron Camacho M.D. ; La Nena Kaplan [place] [id number] Patient Name: JERRY WILSON MRN: [id number] date: 1970 Sex: M Assigned Patient Location: US Current Patient Loca tion: US Accession/Order Numb er: [id number] Exam Date: 09:03 Report Date: 04/03/2024 07:02 [...] 1. Bilateral nonobstructing nephrolithiasis. Electronically authenticated by: JEANINE AWAN Date: 04/03/2024 07:02 Dictated By: Jeanine Awan M.D. Signed By: 04/03/24703 DD/ 1 TD/TT: Airport Engineer: XR abdomen 1V Reviewed date:04/05/2024 02:34:20 PM Interpretation: Performing Lab: Notes/Report: Source Facility: [place] [address] [place] [address] XRay Report Signed Patient: JERRY WILSON MR#: [id number] : 1970 Acct:[id number] Age/Sex: 53 / M ADM Date: 04/02/24 Loc: US Attending Dr: La Nena MASON Ordering Physician: La Nena Kaplan Date of Service: 04/02/24 Procedure(s): XR abdomen 1V Accession Number(s): [id number] cc: Doron Camacho M.D.; La Nena Kaplan [place] [address] Patient Name: JERRY WILSON MRN: [id number] date: 1970 Sex: M Assigned Patient Location: Current Patient Location: Accession/Order Number: [id number] Exam Date: 04/02/2024 10:02 Report Date: 04/03/2024 [...] compared to prior study. Electronically authenticated by: JEANINE AWAN Date: 04/03/2024 06:59 Dictated By: Jeanine Awan M.D. Signed By: 04/03/24 0702 DD/ 0659 TD/TT: Airport Engineer: [place] [address] XRay Report Signed Patient: JERRY WILSON MR#: [id number] : 1970 Acct:[id number] Age/Sex: 53 / M ADM Date: 04/02/24 Loc: US Attending Dr: Arsenio MASON Ordering Physician: La Nena Kaplan Date of Service: 04/02/24 Procedure(s): XR abd omen 1V Accession Number(s): [id number] cc: Doron Camacho M.D. ; La Nena Kaplan [place] [address] Patient Name: JERRY WILSON MRN: [id number] date: 1970 Sex: M Assigned Patient Location: Current Patient Location: Accession/Order Numb er: [id number] Exam Date: 10:02 Report Date: 04/03/2024 06:59 [...] compared to prior study. Electronically authenticated by: JEANINE AWAN Date: 04/03/2024 06:59 Dictated By: Jeanine Awan M.D. Signed By: 04/03/24 0702 DD/ 0659 TD/TT: Airport Engineer: NATASHA KNEE RT 3V Reviewed date:12/28/2023 07:56:34 PM Interpretation: Performing Lab: Notes/Report: Source Facility: [facility]-[address] [place] [address] [place] [address] XRay Report Signed Patient: JERRY WILSON MR#: [id number] : 1970 Acct:[id number] Age/Sex: 53 / M ADM Date: 12/24/23 Loc: RAD Attending Dr: Doron Camacho M.D. Ordering Physician: Doron Camacho M.D. Date of Service: 12/24/23 Procedure(s): XR knee RT 3V Accession Number(s): [id number] cc: Doron Camacho M.D. [address] [address] Patient Name: JERRY WILSON MRN: [id number] date: 1970 Sex: M Assigned Patient Location: RAD Current Patient Location: Accession/Order Number: [id number] Exam Date: 12/24/2023 12:50 Report Date: 12/27/2023 12:21 At the request of: DORON CAMACHO Procedure: XR knee RT 3V PROCEDURE: XR knee RT 3V COMPARISON: None. HISTORY: internal derangement right knee FINDINGS: BONES:Moderate to severe tricompartmental osteoarthritis with bubl-jh-thmy articulation the medial compartment. Marginal osteophyte formation SOFT TISSUES:Negative. No visible soft tissue swelling. EFFUSION:Moderate joint effusion OTHER: Negative. XR/XR knee RT 3V IMPRESSION: Moderate to severe osteoarthritis Electronically authenticated by: JOSE BRUCE Date: 12/27/2023 12:21 Dictated By: Jose Bruce M.D. Signed By: 12/27/23 1224 DD/ 1221 TD/TT: Airport Engineer: [place] [address] XRay Report Signed Patient: JERRY WILSON MR#: [id number] : 1970 Acct:[id number] Age/Sex: 53 / M ADM Date: 12/24/23 Loc: RAD Attending Dr: See Camacho M.D. Ordering Physician: Doron Camacho M.D. Date of Service: 12/24/23 Procedure(s): XR kne e RT 3V Accession Number(s): [id number] cc: Doron Camacho M.D. [place] [id number] Patient Name: JERRY WILSON MRN: [id number] date: 1970 Sex: M Assigned Patient Location: [facility] Current Patient Location: Accession/Order Numb er: [id number] Exam Date: 12/24/2023 12:50 Report Date: 12/27/2023 12:21 At the request of: DORON CAMACHO Procedure: XR knee RT 3V PROCEDURE: XR knee RT 3V COMPARISON: None. HISTORY: internal derangement right knee FINDINGS: BONES:Moderate to se tatum tricompartmental osteoarthritis with bmcs-ta-ljsg articulation the med ial compartment. Marginal osteophyte formation SOFT TISSUES:Negativ e. No visible soft tissue swelling. EFFUSION:Moderate luiz int effusion OTHER: Negative. X R/XR knee RT 3V IMPRESSION: Moderate to severe osteoarthritis Electronically authenticated by: JOSE BRUCE Date: 12/27/2023 12:21 Dictated By: Rocio Bruce M.D. Signed By: 12/27/23 1224 DD/ 1221 TD/TT: Airport Engineer: PROF WILFREDO Barrett ([facility]) Reviewed date:09/27/2024 07:01:32 PM Interpretation: Performing Lab: Notes/Report: [facility] , Sodium 138 136-145 mmol/L Potassium 3.9 3.5-5.1 mmol/L Chloride 103 98-107 mmol/L Carbon Dioxide 22.4 21.0-32.0 mmol/L Anion Gap 16.5 Glucose 129 74-106 mg/dL Blood Urea Nitrogen 17.0 7.0-18.0 mg/dL Creatinine 1.21 0.70-1.30 mg/dL Estimated GFR ( Stacey >60 >=60 mL/min/1.73m 2 Estimated GFR (Non- Kacyee >60 >=60 mL/min/1.73m 2 BUN Creatinine Ratio 14.0 Calcium 9.7 8.5-10.1 mg/dL Performing Lab: see note ML - [facility] LB CBC AUTO DIFF Reviewed date:09/27/2024 07:01:32 PM Interpretation: Performing Lab: Notes/Report: [facility] , White Blood Count 5.7 4.0-11.0 [...] Performing Lab: see note ML - [facility] LB Reason For Referral Diagnosis 1 Internal derangement of knee (M23.90) Referral Organization [facility] Referring Provider First Name Ruben Referring Provider Last Name Zacharyshanel Referring Provider [facility] icine Referred Provider Jeanine Rodriguez Referred Provider Specialty Orthopedic S urgery Referral Priority Routine Diagnosis 1 Hematuria, unspecifi ed (R31.9) Referral Organization [facility] Referring Provider First Name Ruben Referring Provider Last Name Zacharyshanel Referring Provider [facility] icine Referred Provider Sofie Marie Referred Provider Specialty Urology Referral Priority Routine Reason ASHLYN please :) Diagnosis 1 Abnormal stress test (R94.39) Referral Organization [facility] Referring Provider First Name Ruben Referring Provider Last Name Janice Referring Provider Speciality Family Med venkat Referred Provider [facility]erred Provider Specialty Cardiology Referral Priority Routine [...] Status W/U Status Risk Notes Problem Bandemia (769596858) Bandemia (D72.825) Active confirmed Problem Osteoarthritis of knee (314940330) Osteoarthritis of knee, unspecified (M17.9) Active confirmed Problem 44566188 Nausea with vomi ting, unspecified (R11.2) Active confirmed Problem 38660767 Hematuria, unspecified (R31.9) Active confirmed Problem [id number] Abnormal findi ngs on diagnostic imaging of other abdominal regions, including retroperitoneum (R93.5) Active confirmed Problem Hyperlipidaemia (66939973) Hyperlipemia (E78.5) Active confirmed Problem Chronic obstructive pulmonary disease (92937747) Chronic obstructive pulmonary disease (J44.9) Active confirmed Problem Hypertension (97545211) Hypertension (I10) Active confirmed Problem Anxiety (99889234) Anxiety (F41.9) Active confi rmed Problem DM - Diabetes mellitus (29236017) DM (diabetes mellitus) (E11.9) Active confirmed Problem Depression (257029338) Depression (F32.9) Active confirmed Problem Sleep apnea (89736734) Sleep apnea (G47.30) Active confirmed Problem Obstructive sleep apnea syndrome (61247285) CLEM (obstructive sleep apnea) (G47.33) Active confirmed Problem Insomnia (147242642) Insomnia (G47.00) Active c onfirmed Problem Degenerative arthritis (528954766) Degenerative arthritis (M19.90) Active confirmed Problem 16397579 Vitamin D defici ency (E55.9) Active confirmed Problem Hypertriglyceridemia (774822927) Hypertriglyceridemia (E78.1) Active confirmed Problem Kidney stone (77843999) Kidney stones (N20.0) Active confirmed Problem Disorder of lumbar disc (644312914) Lumbar disc disease (M51.9) Active confirmed Problem 950132294 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) Active confirmed Problem Well adult (989528620) Well adult (Z00.00) Active confirmed Problem Polyp colon (38894647) Colon polyp (K63.5) Active confirmed Problem Pyelonephritis (64939881) Pyelonephritis (N12) Active confirmed Problem Leukocytosis (029857018) Leukocytosis (D72.829) Active confirmed Problem Ventricular hypertrophy (348536730) Ventricular hypertrophy (I51.7) Active confirmed Problem Internal derangement of knee (21419112) Internal derangement of knee (M23.90) Active confirmed Problem Acute non-ST segment elevation myocardial infarction (672393420) NSTEMI (non-ST elevation myocardial infarction) (I21.4) Active confirmed Problem Type II diabetes mellitus without complication (468250777) Controlled type 2 diabetes mellitus (E11.9) Active confirmed Problem Osteoarthritis of knee (356813702) Knee osteoarthritis (M17.10) Active confirmed Vital Signs Blood pressure diastolic 88 mm Hg 08/30/2024 Height 70 in 08/30/2024 Blood pressure systolic 160 mm Hg 08/30/2024 Weight 349.4 lbs 08/30/2024 BMI 50.13 kg/m2 08/30/2024 Encounters Encounter Location Date Provider Diagnosis [facility] [address] [place] [address] 10/24/2024 [facility] [address] [place] [address] 10/25/2024 [facility] [address] [place] [address] 11/01/2024 [facility] [address] [place] [address] 09/17/2024 [facility] [address] [place] [facility] [place] [address] 09/23/2024 [facility] [address] [place] [address] 09/23/2024 Ruben Hoy Well adult Z00.00 [facility] [address] [place] [address] 09/30/2024 Roverto Jaimes [facility] [address] [place] [address] 09/30/2024 Ruben Hoy Well adult Z00.00 [facility] [address] [place] [facility] [place] [address] 10/18/2024 Ruben Hoy Well adult Z00.00 [facility] [address] [place] [facility] [place] [place] [address] 04/05/2024 [facility] [address] [place] [facility] [place] [address] 07/29/2024 Ruben Hoy [facility] [address] [facility] [place] [address] 08/25/2024 Ruben Sharmashanel [facility] [address] [facility] [place] [address] 08/28/2024 Ruben Sharmashanel [facility] [address] [facility] [address] 09/15/2024 Ruben Camacho Abnormal stress test R94.39 [facility] [address] [facility] [place] [address] 09/15/2024 Ruben Camacho Lymph node enlargeme nt R59.1 [facility] [address] [facility] [place] [address] 03/02/2024 Ruben Sharmashanel [facility] [address] [facility] [place] [address] 03/02/2024 Ruben Camacho [facility] [address] [facility] [address] 03/04/2024 Ruben Sharmashanel [facility] [address] [facility] [address] 03/04/2024 Ruben Camacho Hematuria, unspecifi ed R31.9 and Kidney stones N20.0 [facility] [address] [facility] [place] [address] 03/12/2024 Mile Dinora Well adult Z00.00 ; Hypertension I10 and Syncope R55 [facility] [address] [facility] [place] [address] 03/31/2024 Ruben Sharmashanel [facility] [address] [facility] [place] [address] 12/28/2023 Ruben Camacho [facility] [address] [facility] [place] [address] 01/05/2024 Ruben Camacho Well adult Z00.00 [facility] [address] [facility] [place] [address] 01/06/2024 Ruben Camacho Internal derangement of knee M23.90 [facility] [address] [place] [address] 01/28/2024 Ruben Hoy Hypertension I10 [facility] [address] [place] [address] 02/26/2024 Ruben Hoy [facility] [address] [place] [address] 12/24/2023 Ruben Hoy Hypertension I10 ; Sleep apnea G47.30 ; Knee osteoarthritis M17.10 and Internal derangement of knee M23.90 [facility] [address] [place] [address] 01/01/2024 Ruben Hoy Osteoarthritis of kn ee, unspecified M17.9 [facility] [address] [place] [address] 08/10/2024 Ruben Hoy Hypertension I10 ; Hyperlipemia E78.5 and Sleep apnea G47.30 [place] [address] [place] [address] 08/30/2024 Ruben Hoy Pyelonephritis N12 ; NSTEMI (non-ST elevation myocardial [...] Name Order Date CMP (COMPLETE METABOLIC PANEL) UA (URINALYSIS, COMPLETE) 02/11/2023 HEMOGLOBIN A1C (GLYCO) 10/03/2023 INSULIN, TOTAL 10/03/2023 LIPID PANEL (CHOL/TRIG/HDL/LDL) 10/03/19 24 CBC WITH DIFF 10/03/2023 Urinalysis Microscopic 02/11/2023 [...] 1 VIEW 01/22/2023 THYROID PANEL (T4/TSH/FREE T3) THYROID PANEL (T4/TSH/FREE T3) 4 PSA, SCREENING 03/12/2024 Lipid Panel 03/12/2024 US venous doppler UE RT 08/30/2024 US AXILLA RT 09/15/2024 Insurance Providers Payer Name Payer Address Payer Phone Subscriber Number Group Number Insured Name Patient Relationship to Insured Coverage Start Date Coverage End Date [employer] [address] [address] [place] [address] [phone] [id number] Jerry Wilson Self - patient is the [...]
--- OUTSIDE RECORDS SUMMARY | 2024-11-03 15:26 | XMS_ITS | Clinical Summary ---
Author Organization [facility] Address [address] [place] [address] Care Team Providers Care Raimann Machine Operator Name Role Phone Unavailable Primary Care Provider [...]
--- OUTSIDE RECORDS SUMMARY | 2024-11-03 15:26 | XMS_ITS | Clinical Summary ---
Author Organization [facility] Address [address] [place] [address] Phone Care Team Providers Care Roving Court Reporter Name Role Phone Gama Camacho MD Primary Care Provider [phone] Allergies No known active allergies Medications fenofibrate [...] Description 08/26/2024 3:02 PM EDT [facility] [place] [address] [place] [address] [place] [address] Dusty Pederson, Maria G Cummings, LOAN 08/26/2024 3:00 PM EDT - 08/26/2024 4:45 PM EDT [facility] [place] [address] [place] [address] [place] [phone] Landon Sanches MD CYSTOSCOPY, WITH LASER LITHOTRIPSY [20947 (CPT ) +1 more] 08/26/2024 11:59 AM EDT - 08/26/2024 5:33 PM EDT Hospital [facility] [address] [place] [address] [place] [phone] Landon Sanches MD Right kidney stone (Primary [...] from your doctor or pharmacy? Never 07/29/2024 [facility] Utilities Answer Date Recorded In the past 12 months has e yoone, gas, oil, or water [facility] threatened to shut off services in your [...] How often do you attend chur or muslim services? Never 07/29/2024 Do you belong to any clubs o r organizations such as buddhism groups, unions, fraternal or athletic groups, or [...] Recorded Patient Health Questionnaire-2 Score 0 07/29/2024 [facility] [place] [facility] Occupat ional Health - Occupational Stress [...] any time in the past 12 m [facility], were you homeless or living in a residential (including now)? No 07/30/2024 Sex and Gender [...] this topic Medical Devices Implanted Type Area House Supervisor Device Identifier Shelf Expiration Date Model / Serial / Lot Stent, Ureteral Contour, 6fr X 28cm - [id number] Implanted:Qty : 1 on 07/29/2024 by [facility] at [facility] Stent Right: Ureter [employer] DEMARCO [id number] 02/18/2027 [id number] 40 / / [id number] Stent, Ureteral Percuflex 6 X 28 - [id number] Implanted:Qty : 1 on 07/29/2024 by [facility] at [facility] Stent Right: Ureter [employer] [id number] 11/18/2026 [id number] 40 / / [id number] Stent, Ureteral Contour, 6fr X 26cm - [id number] Implanted:Qty : 1 on 08/26/2024 by Landon Sanches MD at [facility] Stent Right: Ureter [employer] [id number] 03/30/2027 [id number] 30 / / [id number] Procedures Procedure Name Priority Date/Time Associated Diagnosis Comments FL FLUORO IMAGES NO CHARGE Routine 08/26/2024 5:14 PM EDT POCT GLUCOSE Routine 08/26/2024 4:42 PM EDT PULSE OXIMETRY, CONTINUOUS Routine 08/26/2024 4:07 PM EDT WA AN ELECTIVE ENDOTRACHEAL AIRWAY Routine 08/26/2024 3:11 PM EDT WA CYSTO W/INSERT URETERAL STENT 08/26/2024 3:02 PM EDT [facility] WA CYSTO W/URTROSCOPY W/TX INTRA-RENAL STRICTURE 08/26/2024 3:02 PM EDT [facility] [place] CYSTO/URETERO W/LITHOTRIPSY &INDWELL STENT INSRT 08/26/2024 3:02 [...] - 99 mg/dL 08/26/2024 4:46 PM EDT [facility] Blood Capillary blood specimen / Unknown 08/26/2024 4:42 PM EDT 08/26/2024 4:46 PM EDT Landon Sanches MD LAB POINT OF CARE TE ST DOCKED DEVICE UNSOLICITED RESULTS Final Result Performing Organization Address City/[facility]/ZIP Co de Phone Number [facility] [address] [place] [id number] * WA AN ELECTIVE ENDOTRACHEAL AIRWAY (08/26/2024 3:11 PM [...] - 99 mg/dL 08/26/2024 12:19 PM EDT [facility] Blood Capillary blood specimen / Unknown 08/26/2024 12:16 PM EDT 08/26/2024 12:19 PM EDT us Landon Sanches MD LAB POINT OF CARE TE ST DOCKED DEVICE UNSOLICITED RESULTS Final Result Performing Organization Address City/[facility] Co de Phone Number [facility] [address] [place] [id number] * HIV 1/2 Antigen/Antibody Screen with Reflex to Confirmation (11/22/2020 3:56 PM EDT) HIV 1 and 2 Screen NONREACTIVE NONREACTIVE [facility] Comment: HIV Ag/Ab screen is performed using the Siemens [employer] HIV Ag/Ab Combo assay which detects the [...] ORDERABLES Final Resul t Performing Organization Address City/[facility] Co de Phone Number [facility] * Bronchoscopy (07/24/2020 7:04 AM EDT) Anatomical Region Laterality Modality Endoscopy 07/24/2020 7:04 AM EDT Narrative 05/07/2022 10:57 AM EST Patient Name: Rome [place] Procedure Date: 07/24/2020 7:04 AM Date of : 1970 Room: Bronchoscopy Room 1 Attending MD: Stuart Miguel MD, [id number] Procedure: Bronchoscopy Indications: Mediastinal adenopathy, Bilateral hilar [...] previously scheduled. Procedure Code(s): --- Professional --- 27898, Bronchoscopy, rigid or flexible, including fluoroscopic guidance, when performed; with endobronchial ultrasound (EBUS) guided transtracheal and/or transbronchial sampling (eg, aspiration[s]/biopsy[ies]), 3 or more mediastinal and/or hilar lymph node stations or structures 97057, Bronchoscopy, rigid or flexible, including fluoroscopic guidance, when performed; with transbronchial lung biopsy(s), single lobe 14678, Bronchoscopy, rigid or flexible, including fluoroscopic guidance, when performed; with bronchial alveolar lavage Diagnosis Code(s): --- Professional --- R59.0, Localized enlarged lymph nodes R06.02, Shortness of breath CPT copyright 2021 [employer] [place] [employer]. All rights reserved. The codes documented in this report are preliminary and upon aircraft landing gear inspector review may be revised to meet current [...] Room 1 Attending MD: Stuart Miguel MD, [id number] Procedure: Bronchoscopy Indications: Mediastinal adenopathy, Bilateral hilar lymphadenopathy, Shortness of breath Providers: Stuart Mgiuel MD (Doctor), Anthony Johnson RN (Nurse), Rosy [...] aspiration was also performed using an Olympus [id number] 22 gaugeneedle in the right lower paratracheal region (level 4R), subcarinal mediastinum (level 7) and right inferior interlobar region ([id number]) and sent for routine cytology. - The [...] previously scheduled. Procedure Code(s): --- Professional --- 02807, Bronchoscopy, rigid or flexible, including fluoroscopic guidance, when performed; with endobronchial ultrasound (EBUS) guidedtranstracheal and/or transbronchial sampling (eg, aspiration[s]/biopsy[ies]), 3 or more mediastinal and/or hilar lymph node stations or structures 92862, Bronchoscopy, rigid or flexible, including fluoroscopic guidance, when performed; with transbronchial lung biopsy(s), single lobe 39801, Bronchoscopy, rigid or flexible, including fluoroscopic guidance, when performed; withbronchial alveolar lavage Diagnosis Code(s): --- Professional --- R59.0, Localized enlarged lymph nodes R06.02, Shortness of breath CPT copyright 2021 [employer] [place] [employer]. All rights reserved. The codes documented in this report are preliminary and upon aircraft landing gear inspector reviewmay be revised to meet current compliance [...] Most Recently Relevant to Health Maintenance Insurance [employer] [place] [address] [place] [address] [employer] Advance Directives For more information, please contact: [phone] (Available ) * Full Code (Latest Code Status on File) Date Activated Date Inactivated Comments 07/29/2024 9:03 PM Question Answer Comments Plan of Care: Code Status Discussion Not Compl eted Decision Maker: Provider Rationale: Patient condition does not warra nt discussion Care Teams Roving Court Reporter Relationship Specialty Start Date End Date Gama Camacho MD [address] [place] [address] PCP - General Family Medicine 08/03/24
--- OUTSIDE RECORDS SUMMARY | 2024-11-03 15:26 | XMS_ITS | Referral Summary ---
Author Organization [facility] Address [address] [place] [place] [address] Care Team Providers Care Cosmetologist Name Role Phone Gama Camacho MD Primary Care Provider [phone] Encounters Date Type Department Care Team Description 09/20/2024 12:00 PM EDT Office Visit [facility] at [address] [address] Alex Shin MD Cardiovascular stress test abnormal (Primary Dx); Primary hypertension; Mixed hyperlipidemia; Shortness of breath from Last 3 Months Allergies No known active allergies Medications fenofibrate (Lofibra) 160 mg tablet Take 160 mg by mouth in the morning. 02/05/2023 Active aspirin 81 mg EC tablet Take 81 mg by mouth in the morning. Active tiZANidine (Zanaflex) 4 mg capsule Take 4 mg by mouth three times daily. Active tamsulosin (Flomax) 0.4 mg 24 hr capsule Take 0.8 mg by mouth in the morning. Active SUMAtriptan (Imitrex) 100 mg tablet Take 100 mg by mouth 1 (one) time if needed. Active simvastatin (Zocor) 40 mg tablet Take 40 mg by mouth at bedtime. Active PARoxetine (Paxil) 40 mg tablet Take 40 mg by mouth in the morning. 05/03/2018 Active pantoprazole (ProtoNix) 40 mg EC tablet Take 40 mg by mouth in the morning. 08/25/2024 Active metFORMIN (Glucophage) 500 mg tablet Take 500 mg by mouth with breakfast. 04/02/2024 Active metoprolol tartrate (Lopressor) 100 mg tablet Take 100 mg by mouth twice a day. 02/05/2023 Active irbesartan (Avapro) 150 mg tablet Take 150 mg by mouth in the morning. 04/02/2024 Active oxaprozin (Daypro) 600 mg tablet Take 1,200 mg by mouth in the morning. 02/05/2023 Active gabapentin (Neurontin) 600 mg tablet Take 600 mg by mouth in the morning. 05/22/2018 Active Active Problems Problem Noted Date Diagnosed Date Abnormal abdominal CT scan 09/20/2024 BMI 50.0-59.9, adult 09/20/2024 BPH with obstruction/lower urinary tract symptom s 09/20/2024 Diabetes 09/20/2024 ED (erectile dysfunction) 09/20/2024 Frequent UTI 09/20/2024 Gross hematuria 09/20/2024 Hepatic steatosis 09/20/2024 Hepatomegaly 09/20/2024 History of nephrolithiasis 09/20/2024 HTN (hypertension) 09/20/2024 Hypercholesteremia 09/20/2024 Hyperplastic rectal polyp 09/20/2024 Interstitial lung disease 09/20/2024 LLQ abdominal pain 09/20/2024 Mediastinal lymphadenopathy 09/20/2024 Morbid obesity 09/20/2024 Obstructive sleep apnea syndrome 09/20/2024 Prostate cancer screening 09/20/2024 Rectal bleeding 09/20/2024 Right flank pain 09/20/2024 Sarcoidosis 09/20/2024 Sigmoid diverticulosis 09/20/2024 Vitamin D deficiency 09/20/2024 Primary osteoarthritis of right knee 09/20/2024 Cardiovascular stress test abnormal 09/20/2024 Shortness of breath 09/20/2024 Right kidney stone 07/29/2024 Status post lumbar spinal fusion 04/30/2018 Social History Tobacco Use Types Packs/Day Years Used Date Smoking Tobacco: Never Smokeless Tobacco: Never Tobacco Cessation:Counseling Given: Not Answered Alcohol Use Standard Drinks/Week Comments Not Asked 0 (1 standard drink = 0.6 oz pur e alcohol) occasional Sex and Gender Information Value Date Recorded Sex Assigned at Not on file Legal Sex Male 3:57 PM EDT Gender Identity Not on file Sexual Orientation Not on file Last Filed Vital Signs Vital Sign Reading Time Taken Comments Blood Pressure 132/88 09/20/2024 12:30 PM EDT Pulse 93 09/20/2024 12:30 PM EDT Temperature - - Respiratory Rate - - Oxygen Saturation 97% 09/20/2024 12:30 PM EDT Inhaled Oxygen Concentration - - Weight 158 kg (349 lb) 09/20/2024 12:30 PM EDT Height 180.3 cm (5' 11 ) 09/20/2024 12:30 PM EDT Body Mass Index 48.68 09/20/2024 12:30 PM EDT Plan of Treatment Upcoming Encounters Date Type Department Care Team (Late st Contact Info) Description 11/04/2024 9:30 AM EDT Hospital Encounter [facility] [address] [place] [phone] Alex Shin MD [address] [place] [address] Cardiovascular stress test abnormal; Primary hypertension; Shortness of breath 11/04/2024 11:30 AM EDT - 11/04/2024 12:30 PM EDT Surgery [facility] [address] [place] [address] Alex Shin MD [address] [facility] [address] [place] [address] Coronary angiography Insurance [facility] Care Teams Cosmetologist Relationship Specialty Start Date End Date Gama Camacho MD [address] [place] [address] PCP - General Family Medicine 09/17/24
--- OUTSIDE RECORDS SUMMARY | 2024-11-03 15:27 | XMS_ITS | Patient Health Record ---
Author Organization [facility] Address [address] [place] [place] [address] Care Team Providers Care Sand Control Worker Name Role Phone Gama Camacho Primary Care Provider Marlen mark Cruz Rodriguez Unavailable [phone] Allergies No Known Allergies Reason For Referral No Information Problems Problem Type SNOMED Code ICD Code Onset Dates Problem Status W/U Status Risk Notes Problem [id number] Primary osteoarthritis of right knee (M17.11) Active confirmed Vital Signs Height 5'11 in 02/02/2024 Weight 330 lbs 02/02/2024 BMI 46.02 02/02/2024 Encounters Encounter Location Date Provider Diagnosis [facility] [address] [place] [address] [address] [place] [address] 02/02/2024 Cruz Rodriguez Primary osteoarthrit is of [...] Date Coverage End Date [employer] [address] [address] [place] [address] [id number] JERRY WILSON Self - patient is the insured Medical (General) History Medical History History ICD Code Respiratory problems: Lung Disease Diabetes High Blood Pressure Depression Sleep apnea CPAP Machine: Do you use the CPAP machine? Yes Surgical History Surgery Date(Month/Year) Left shoulder Back fusion
[2024-11-03 15:38] LABS: Basophils Percent Auto 0.5 % (0.2-2.0); Eosinophils Absolute Auto 0.3 10^3/uL (0.0-0.7); Eosinophils Percent Auto 4.8 % (0.9-7.0); Hemoglobin 15.3 g/dL (14.0-18.0); Immature Granulocytes Abs Auto 0.02 10^3/uL (0.00-0.03); Immature Granulocytes Pct Auto 0.3 % (0.0-0.5); Lymphocytes Percent Auto 16.6 % (20.5-60.0); Mean Corpuscular HGB Conc 34.8 g/dL (29.9-35.2); Mean Corpuscular Hemoglobin 29.1 pg (25.9-34.0); Mean Corpuscular Volume 83.7 fL (80.0-94.0); Mean Platelet Volume 11.1 fL (9.5-13.5); Monocytes Absolute Auto 0.8 10^3/uL (0.3-0.8); Monocytes Percent Auto 12.2 % (1.7-12.0); Neutrophils Absolute Auto 4.1 10^3/uL (1.4-6.5); Neutrophils Percent Auto 65.6 % (43.0-75.0); Platelet Count 220 10^3/uL (150-450); Red Blood Count 5.26 10^6/uL (4.70-6.10); Red Cell Distribution Width 13.1 % (11.0-15.0); White Blood Count 6.3 10^3/uL (4.0-11.0)
[2024-11-03 15:54] LABS: Anion Gap 16.4; BUN Creatinine Ratio 27.3; Calcium 9.6 mg/dL (8.5-10.1); Carbon Dioxide 23.8 mmol/L (21.0-32.0); Chloride 101 mmol/L (98-107); Estimated GFR (African America >60 (>=60 mL/min/1.73m^2); Estimated GFR (Non-African Ame >60 (>=60 mL/min/1.73m^2); Glucose 135 mg/dL (74-106); Potassium 4.2 mmol/L (3.5-5.1); Sodium 137 mmol/L (136-145)
== END 2024-11-03 15:20 | disposition home or self-care (01) ==
LOC: LAB 15:23
PROVIDERS: PCP Family Medicine; Visit Provider Internal Medicine Interventional Cardiology
DX: R94.39 Abnormal result of other cardiovascular function study (principal); I10 Essential (primary) hypertension; R06.02 Shortness of breath
CPT/HCPCS: 36415; 80048; 85025